=== PATIENT | female | born 1940 | race Caucasian/White ===

== ENCOUNTER → 2017-12-17 14:01 | Outpatient (CLI) | payer MEDICARE, OTHER, SELFPAY ==
--- NOTE | 2017-12-17 14:02 | BI_ITS ---
MAMMOGRAPHY - BILATERAL SCREENING REASON FOR EXAM: Female, 77 years old. Routine annual screening examination. PERTINENT HISTORY: Grandmother with breast cancer. Remote right excisional breast biopsies. TECHNIQUE: Digital bilateral breast robert (3D mammographic acquisition) in the CC and MLO projections. 2-D mediolateral oblique (MLO) and craniocaudad (CC) views of both breasts were obtained. CAD: Full Field Digital Mammography with Computer Added Detection was performed. COMPARISON: Comparison is made with prior study dated December 05, 2016 and October 18, 2015. FINDINGS: Breast Composition: The breasts are almost entirely fatty. There are no dominant masses or suspicious calcifications. Mild degree of architectural distortion in the deep upper lateral portion of the right breast in keeping with the history of prior biopsy. No other significant abnormalities are identified. There has been no significant change since the prior study. BI/SCREENING MAMM (CAD), BILAT IMPRESSION: Stable bilateral screening mammogram. Yearly follow-up mammogram recommended. (A) ASSESSMENT CATEGORY: BIRADS Category 2: Benign. A letter regarding these results will be sent to the patient by the facility within 30 days. Approximately 10% of breast cancers are not detected by mammography. A normal mammogram should not delay biopsy of a clinically suspicious abnormality. [id number] Electronically Signed: Quan Nichols MD at 15:11 EDT Tel [phone], Service support ,
== END ==
PROVIDERS: Family Provider Family Medicine; PCP Family Medicine; Visit Provider Obstetrics & Gynecology
DX: Z12.31 Encounter for screening mammogram for malignant neoplasm of breast (principal)
CPT/HCPCS: 77063; 77067

== ENCOUNTER 2018-03-30 13:00 | Outpatient (RCR) | payer MEDICARE, SELFPAY ==
--- NOTE | 2018-02-23 12:06 | HP.PTEVAL_ITS ---
Patient's Visit Information AMRIK CONROY is a 77 year old F referred to Physical Therapy by THEODORE Malloy with a diagnosis of Unstable balance. Date of Evaluation: 02/23/18 Physical Therapist: Casey Ibarra DPT, OC - Visit Plan Frequency: 2x /Week Duration: 4-6 Weeks Plan: 2x/week for 4-6 weeks for... 1. VOR ex progression seated to standing as safety allows. 2. ankle motor control ex. 3. weight shift and balance ex and on foam and progress to HEP. - Subjective Subjective: Lost earlier in the year. Has supportive kids but rough year. My brain doesn't work properly. Had voices in her head but prayed adn they are gone. Does stumble sometimes as hse catches feet on floor but has not gone down to the floor. Feels like balance is poor daily. Has not hurt herself recently . Has a cane but does not use as she often forgets. Has walker with wheels but does not use. Sleep is OK. No pain. No numbness in feet. Sometimes gets unsteady up arising from chair. Basic ADLS are done at home where she lives by herself. Has a ranch with three steps to get in with railing. Has ramp. Exercises in pool a couple times per week. Does an ex plan someone gave her 10 years ago in pool. Watches TV alot. Drives and grocery shop by herself and needs to use cart. - Objective Walks without cane I, slow and poor weight shift. Trasnfers I using UE. Tends to lean BW with sitting. VOR walking is very challenging and head tends to stop moving, Sitting body tends to move with head. LE ROM WFL but gastroc and HS tight and L DF to 0 degrees only. Strength is 4/5 in ankles and knees and 4 - in hips. Motor control at ankles is poor inv/ev. reflexes 1/3 patella and achilles. Sensation LE WNL to gross lgiht touch. Coordination to reciprocal tapping is at dificit to moderately to toe and heel tapping. - Balance Scores Functional Gait Assessment Score: 21 % Disability: 30.0000 CATSIB Score (Max score 120 seconds): 73 - Goals Goal 1:: FGA 25/30 to diminish fall risk Goal Time Frame: 4-6 Weeks Goal 2:: Pt feel 50% more steady and be I in approp HEP for balance maintenance. Goal Time Frame: 4-6 Weeks - Rehabilitation Potential Physical Therapy Diagnosis: Unstable balance VOR and ankle motor control deficits. Rehabilitation Potential: Fair - Anticipated Interventions Patient/Client Instruction: Educate patient on: Condition, Plan of Care For the Purpose of:: To improve gait and locomotor functions Therapeutic Exercise to Include: Strength training, Balance training, Coordination For the Purpose of:: To improve ability of physical actions for home/community/ work/leisure, To improve gait and locomotor functions, To improve safety Thank you for the opportunity to evaluate your patient. For Medicare and Medicare HMO plans, please review the plan of care and approve it. It will need to be FAXED BACK to us at [phone] for Medicare purposes. Please let me know if there are questions or concerns regarding this plan of care. Physician Signature: Date:
--- NOTE | 2018-03-30 14:16 | HP.PTDCSUM ---
HP - PT D/C Summary It has been my pleasure to treat AMRIK CONROY under orders from Zaheer Geller, GAVINOC, for the diagnosis of Unstable balance for a total of 9 visit(s). Discharge Date: 03/30/18 Please see the following information for a summary of their discharge status. - Subjective Subjective: Head always seems to be swimming for the last couple days for unknown reason. Left cane at [place] today. 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 Don't feel any steadier or stronger with therapy. Not ex as much as I should at home. Feels like she needs to go to doctor and find out what is wrong with me. Added Metformin dose at last visit to doctor. - Overall Improvement % Improvement: 0 - Objective Objective/Function: FGA is better by a couple points but patient not feeling any better overall. Balance is not bad for her age although I continue to recommend use of cane. Her complaints are more how she is feeling. - teresa Segura today. - Goals Goal 1:: FGA to diminish fall risk Goal Progress: Progressing Goal 2:: Pt feel 50% more steady and be I in approp HEP for balance maintenance. Goal Progress: Not Progressing - Plan Plan: D/C, pt back doctor for appropriate steps. - D/C Information Discharge Comments: Pt scoring better on balance test but still not feeling right much of time seemingly unrelated to activity. She wants to check with doctor regarding other options and will be contacting his office at this point. If there are questions or concerns regarding this patient's physical therapy, please feel free to call me at [phone]. Thank you for the referral of this patient. Sincerely, Casey Ibarra, DPT, OC
== END 2018-03-30 19:00 | disposition home or self-care (01) ==
LOC: PT 13:00
PROVIDERS: Family Provider Family Medicine; PCP Family Medicine; Visit Provider Nurse Practitioner Family
DX: R42 Dizziness and giddiness (principal); R26.89 Other abnormalities of gait and mobility
CPT/HCPCS: 97110; 97116; 97162; 97530

== ENCOUNTER → 2018-12-29 08:11 | Outpatient (CLI) | payer MEDICARE, SELFPAY ==
--- NOTE | 2018-12-29 08:15 | BI_ITS ---
MAMMOGRAPHY - BILATERAL SCREENING 3-D TOMOSYNTHESIS REASON FOR EXAM: Female, 78 years old. Bilateral Screening 3-D tomosynthesis PERTINENT HISTORY: No significant family history. TECHNIQUE: 2-D mammograms and 3-D Tomosynthesis of the breast (s) were performed. CAD was performed. COMPARISON: December 17, 2017. FINDINGS: The breast composition is almost entirely fat. I now see an approximately 9 mm maximum dimension density with ill-defined margins seen only convincingly on the right MLO view located approximately 7.1 cm from the nipple recommend further evaluation, initially with sonography. There are no suspicious clustered pleomorphic microcalcifications. Base. BI/SCREENING MAMM (CAD), BILAT IMPRESSION: Follow-up as above recommended. ASSESSMENT CATEGORY: BIRADS Category 0: Incomplete. Need additional imaging evaluation as above. A letter regarding these results will be sent to the patient by the facility within 30 days. FOLLOW UP RECOMMENDATION: Yearly follow up mammogram recommended. (A) Approximately 10% of breast cancers are not detected by mammography. A normal mammogram should not delay biopsy of a clinically suspicious abnormality. Recommendation: Recommend right breast sonography of the upper half of the right breast. Electronically Signed: Rajinder Hinds MD at 14:11 EDT , Service support ,
== END ==
PROVIDERS: Family Provider Family Medicine; PCP Family Medicine; Referring Provider Obstetrics & Gynecology; Visit Provider Obstetrics & Gynecology
DX: Z12.31 Encounter for screening mammogram for malignant neoplasm of breast (principal)
CPT/HCPCS: 77063; 77067

== ENCOUNTER → 2019-01-03 10:47 | Outpatient (CLI) | payer MEDICARE, OTHER, SELFPAY ==
--- NOTE | 2019-01-03 10:53 | US_ITS ---
STUDY: ULTRASOUND BREAST - RIGHT REASON FOR EXAM: Female, 78 years old. Abnormal screening mammogram. TECHNIQUE: Axial and longitudinal images of the RIGHT breast were performed with a high resolution ultrasound transducer. COMPARISON: Comparison is made with prior mammogram dated December 29, 2018. FINDINGS: RIGHT Breast: The mammographic abnormality corresponds to a 8mm by 8mm by 5 mm irregular hypoechoic nodular density with posterior shadowing. This is at the 9:00 position in the breast at 8 summary from nipple. A biopsy is recommended. US/Breast Limited Unilateral IMPRESSION: Suspicious nodule as described. Biopsy is recommended. ASSESSMENT CATEGORY: BIRADS Category 4: Suspicious - Biopsy Should Be Considered. A letter regarding these results will be sent to the patient by the facility within 30 days. Electronically Signed: Quan Nichols, at 13:21 EDT , Service support ,
== END ==
PROVIDERS: Family Provider Family Medicine; PCP Family Medicine; Referring Provider Obstetrics & Gynecology; Visit Provider Obstetrics & Gynecology
DX: R92.8 Other abnormal and inconclusive findings on diagnostic imaging of breast (principal)
CPT/HCPCS: 76642

== ENCOUNTER → 2019-01-12 13:37 | Outpatient (CLI) | payer MEDICARE, OTHER, SELFPAY ==
[2019-01-12 09:16] VITALS: BMI 33.4
--- NOTE | 2019-01-12 09:40 | BRBX_PTH ---
PATIENT: AMRIK CONROY LOC: [facility] U#:[id number] AGE/SX: 85/F ROOM: RE01/12/[address]: Dr. Austen Gooden MD : [id number] BED: DIS: SPEC #: [id number] RECD: 01/12/19 10:47 STATUS: DINH REQ #: [id number] BERNA: 01/12/19 09:[address]: Austen Gooden DEPT: SURGICAL PATHOLOGY RECD BY: Giancarlo Wilkerson ENTERED: 01/12/19 11:18 SP TYPE: BREAST BX OTHR DR: Dr. Jericho Mcnair MD Tissues: Right breast, NOS Procedures: Surgery Specimen Level IV Comments: @ Originally on account #[id number] Req #[id number] HEADER OPERATION: Right breast biopsy PRE-OP DIAGNOSIS: Abnormal breast ultrasound TISSUE SUBMITTED: Right breast tissue MICROSCOPIC DIAGNOSIS Right breast, core biopsy: Fragments of fatty benign breast tissue with dense fibrosis. Negative for atypia or malignancy. BRYAN:kelsey 01/13/19 COMMENT Correlation with clinical, radiologic findings and appropriate follow up are necessary. MICROSCOPIC DESCRIPTION Slides are reviewed. GROSS DESCRIPTION Received in fixative is one container labeled with the patient's name and designated right breast. The specimen consists of multiple elongated fragments of chance-yellow fibroadipose tissue that in aggregate measure 2.5 x 2 x 0.1 cm. The entire specimen is submitted in one cassette. / BRYAN:kelsey 01/12/19 TC:5 CPT: 66475
== END ==
PROVIDERS: Family Provider Family Medicine; PCP Family Medicine; Referring Provider Surgery; Visit Provider Surgery
DX: R92.8 Other abnormal and inconclusive findings on diagnostic imaging of breast (principal)
CPT/HCPCS: 88305

== ENCOUNTER → 2019-01-18 13:17 | Outpatient (CLI) | payer MEDICARE, OTHER, SELFPAY ==
[2019-01-12 09:16] VITALS: BMI 33.4
--- NOTE | 2019-01-18 13:21 | BI_ITS ---
MAMMOGRAPHY - UNILATERAL DIAGNOSTIC: RIGHT BREAST REASON FOR EXAM: Female, 78 years old. Imaging of a clip placement following ultrasound-guided breast biopsy.. PERTINENT HISTORY: Ultrasound guided right breast biopsy on January 12, 2019. TECHNIQUE: Mediolateral oblique and craniocaudad views of the right breast were obtained. CAD: Full Field Digital Mammography with Computer Added Detection was performed. COMPARISON: Comparison is made with prior mammogram dated December 29, 2018. FINDINGS: Breast Composition: The breasts are almost entirely fatty. A tissue clip marker is seen within a 1 cm nodular density in the upper lateral portion of the right breast. No other significant abnormalities are identified. BI/DIAG MAMM W/CAD, UNILAT IMPRESSION: A tissue clip marker is seen within the nodular density in the upper lateral portion of the right breast. ASSESSMENT CATEGORY: BIRADS Category 2: Benign. A letter regarding these results will be sent to the patient by the facility within 30 days. Approximately 10% of breast cancers are not detected by mammography. A normal mammogram should not delay biopsy of a clinically suspicious abnormality. Electronically Signed: Quan Nichols, at 15:11 EDT , Service support ,
== END ==
PROVIDERS: Family Provider Family Medicine; PCP Family Medicine; Referring Provider Surgery; Visit Provider Surgery
DX: R92.8 Other abnormal and inconclusive findings on diagnostic imaging of breast (principal)
CPT/HCPCS: 77065

== ENCOUNTER → 2019-01-26 10:29 | Outpatient (CLI) | payer MEDICARE, SELFPAY ==
[2019-01-12 09:16] VITALS: BMI 33.4
--- NOTE | 2019-01-26 10:34 | BD_ITS ---
STUDY: DUAL ENERGY X-RAY ABSORPTIOMETRY / DXA REASON FOR EXAM: Female, 78 years old. The patient is postmenopausal. Loss of height. TECHNIQUE: Bone Mineral Density (BMD) measurements of lumbar spine and left hip were obtained. The patient is status post right hip replacement. COMPARISON: Comparison is made with prior study dated October 17, 2014. FINDINGS: Lumbar Spine (L1-L4): g/cm2 (1.237) / T-score (0.6) / Z-score (2.4) Findings are suggestive of normal bone density with a low fracture risk. Increased kyphosis. Left Femur Total: g/cm2 (0.998) / T-score (-0.1) / Z-score (1.8) Left Femoral Neck: g/cm2 (0.753) / T-score (-2.1) / Z-score (0.0) The T-Scores on the most recent prior examination were: Lumbar Spine (L1-L4): There has been improvement of bone density since the previous examination. Left Femur Total: which represents a worsening of 1.5%. BD/Dexa Bone Density Study IMPRESSION: The patient is considered osteopenic as outlined below according to World [place] Organization (WHO) criteria with a moderate fracture risk. There has been worsening of bone density since the previous examination. Reference Information: The T-score is the number of standard deviations above or below the standard which is normal for young adults at their peak bone mineral density. The World Health Organization (WHO) interprets the T-scores as follows: Above -1 Normal bone density Between -1 and -2.5 Osteopenia Equal to / or below -2.5 Osteoporosis As a practical clinical guideline, osteopenia may be graded as follows: Mild -1 through -1.5 Moderate -1.6 through -2.0 Severe -2.1 through -2.4 The Z-score is the number of standard deviations above or below age-matched controls. A Z-score of less than -1.5 would be considered abnormal. References: 1. NIH Osteoporosis and Related Bone Diseases http://www.osteo.org 2. International Society for Clinical Densitometry http://www.iscd.org 3. National Osteoporosis Foundation http://www.nof.org Electronically Signed: Quan Nichols, at 15:15 EDT , Service support ,
== END ==
PROVIDERS: Family Provider Family Medicine; PCP Family Medicine; Referring Provider Obstetrics & Gynecology; Visit Provider Obstetrics & Gynecology
DX: Z78.0 Asymptomatic menopausal state (principal); Z13.820 Encounter for screening for osteoporosis
CPT/HCPCS: 77080

== ENCOUNTER → 2019-07-14 09:24 | Outpatient (CLI) | payer MEDICARE, OTHER, SELFPAY ==
[2019-01-12 09:16] VITALS: BMI 33.4
--- NOTE | 2019-07-14 09:27 | BI_ITS ---
MAMMOGRAPHY - UNILATERAL DIAGNOSTIC: RIGHT BREAST REASON FOR EXAM: Female, 79 years old. Six-month follow-up examination for right ultrasound-guided breast biopsy. PERTINENT HISTORY: Grandmother with breast cancer. Remote right excisional breast biopsy. TECHNIQUE: Digital unilateral breast robert (3D mammographic acquisition) in the CC and MLO projections. 2-D mediolateral oblique (MLO) and craniocaudad (CC) views of both breasts were obtained. CAD: Full Field Digital Mammography with Computer Added Detection was performed. COMPARISON: Comparison is made with prior study dated December 29, 2018 and January 18, 2019. FINDINGS: Breast Composition: The breasts are almost entirely fatty. There are no dominant masses or suspicious calcifications. Once again, a tissue clip marker is seen within a small nodular density in the deep upper lateral aspect of the right breast. This is unchanged. No other significant abnormalities are identified. There has been no significant change since the prior study. BI/DIAG MAMM W/CAD, UNILAT IMPRESSION: Stable unilateral diagnostic mammogram. One year follow-up mammogram recommended. (A) ASSESSMENT CATEGORY: BIRADS Category 2: Benign. A letter regarding these results will be sent to the patient by the facility within 30 days. Approximately 10% of breast cancers are not detected by mammography. A normal mammogram should not delay biopsy of a clinically suspicious abnormality. Electronically Signed: Quan Nichols, at 10:23 EST , Service support ,
== END ==
PROVIDERS: Family Provider Family Medicine; PCP Family Medicine; Referring Provider Surgery; Visit Provider Surgery
DX: R92.8 Other abnormal and inconclusive findings on diagnostic imaging of breast (principal)
CPT/HCPCS: 77061; 77065; G0279

== ENCOUNTER 2019-07-18 09:30 | Outpatient (RCR) | payer MEDICARE, OTHER, SELFPAY ==
[2019-01-12 09:16] VITALS: BMI 33.4
--- NOTE | 2019-06-27 10:09 | HP.PTEVAL_ITS ---
Patient's Visit Information AMRIK CONROY is a 79 year old F referred to Physical Therapy by THEODORE Malloy with a diagnosis of CERVICAL SPONDYLOSIS, NEURAL FORAMINAL STENOSIS AND LANI HAND NUMBNESS.. Date of Evaluation: 06/27/19 Physical Therapist: Charo Ge, PT, Cert MDT - Visit Plan Frequency: 2-3x /Week Duration: 4-6 Weeks Plan: CERVICAL US, POSTURE CORRECTION/STRENGTHENING, INSTRUCTION IN APPROPRIATE BODY MECHANICS AND ACTIVITY MODIFICATIONS. LANI UE ROM, STRETCHING AND STRENGTHENING. HEP INSTRUCTION. - Subjective Findings: Work/Leisure: RETIRED. Disability: NO. Present symptoms: PATIENT REPORTS SHE TOLD THE DOCTOR HER HANDS AND FINGERS HAVE BEEN BOTHERING HER (DIFFICULTY PICKING UP THINGS AND HANDS/FINGERS ARE NUMB) SO THEY X-RAY'D HER NECK AND FOUND A LOT OF ARTHRITIS. SHE REPORTS HER NECK REALLY DOES'T HURT MUCH AND WHEN SHE TURNS HER HEAD IT IS MILDLY UNCOMFORTABLE IN HER NECK. Present since: LESS THAN 6 MONTHS. Pain Scale: Worst - 4/10 Least - 0/10. Currently: 0/10 PAIN - JUST TINGLING IN FINGERS. Commenced as a result of: NO APPARENT REASON. Symptoms at onset: HANDS. Worse: NOTHING THAT PATIENT KNOWS OF. Better: UNKNOWN TO PATIENT. Disturbed sleep: NO. Previous history/Previous treatment: UNREMARKABLE. Dizziness: NO. Tinnitis: NO. Nausea: NO. Shortness of Breath: NO. Difficulty Swollowing: NO. Gait: NO CHANGES. UNSTEADY. USES CANE. DOESN'T GO OUT OF HOUSE ALONE BECAUSE HER CHILDREN DO NOT WANT HER TO. LIVES ALONE. Accidents: NO. Unexplained weight loss: NO. Imagin06/17/19 - ADVANCED CERVICAL SPONDYLOSIS WITH SEVERE LEFT C56 NEURAL FORAMINAL STENOSIS. PMH/Recent major surgery: ESSENTIAL HYPERTENSION, BENIGN, HYPERLIPIDEMIA, NIDDM, MEMORY DIFFICULTIES - PHYSICIAN AWARE. RIGHT THR. OTHER: PATIENT COMES TO [facility] TO DO INDEP POOL PROGRAM AND SOMETIMES T TH TO USE NUSTEP - Objective Sitting Posture/Standing Posture: POOR. FORWARD HEAD AND ROUNDED SHOULDERS BUT NO TORTICOLLIS. INCREASED KYPHOSIS. Active Correction of posture: NE. Other Observations: INDEP GAIT INTO PT WITH STRAIGHT CANE. GAIT IS SLOW AND UNSTEADY AT TIMES BUT REGAINS BALANCE INDEP'LY. PATIENT IS CAUTIOUS. 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 LANI UE STRENGTH GROSSLY 4/5 WITH MMT'ING. Sensory deficit: LANI UE LIGHT TOUCH SENSATION APPEARS TO BE INTACT AND SYMMETRICAL. ROM deficit: LANI UE ROM WFL. Reflexes: 2/3 LANI UE'S. Dural Signs: POSITIVE LANI UE'S. Cervical Mvmt Loss: Flex: NIL. Pro: NIL. Ext: JUSTA. Ret: JUSTA. RSB: JUSTA - PRODUCES LEFT NECK PAIN -MILD. LSB: JUSTA. R Rot: MOD. L Rot: MOD - PRODUCES LEFT NECK PAIN - MILD. Postural strength: POOR. Palpation: VERY TIGHT LANI POSTERIOR CERVICAL MUSCULATURE AND UPPER TRAPS. NO ACUTE CERVICAL OR THORACIC TENDERNESS WITH LIGHT PALPATION. - Goals Goal 1:: DECREASE C/O NECK AND LANI UE SX'S. Goal Time Frame: 4-6 Weeks Goal 2:: IMPROVE PERSONAL CARE, DRIVING AND HOMEMAKING FUNCTION. Goal Time Frame: 4-6 Weeks Goal 3:: INSTRUCT IN PROPHYLAXIS Goal Time Frame: 4-6 Weeks - Rehabilitation Potential Rehabilitation Potential: Fair - Anticipated Interventions Patient/Client Instruction: Educate patient on: Condition, Plan of Care, Risk Factors, Benefits of Fitness Program For the Purpose of:: To improve self management Therapeutic Exercise to Include: Strength training, Body mechanics, Postural training, Active ROM, Scapular Strength/Stabilization For the Purpose of:: To decrease pain, To improve muscle performance and motor function, To increase tolerance to activity/condition/position, To improve ability of physical actions for home/community/work/leisure Thermo therapy (hot pack): Yes Ultrasound (thermal/non thermal): Yes For the Purpose of:: To decrease pain, To increase ROM, To improve nutrient delivery to tissue Thank you for the opportunity to evaluate your patient. For Medicare and Medicare HMO plans, please review the plan of care and approve it. It will need to be FAXED BACK to us at [phone] for Medicare purposes. For Medicare only, by signing this I certify the plan of care. Please let me know if there are questions or concerns regarding this plan of care. Physician Signature: Date:
--- NOTE | 2019-07-18 11:13 | HP.PTDCSUM ---
HP - PT D/C Summary It has been my pleasure to treat AMRIK CONROY under orders from THEODORE Malloy, for the diagnosis of CERVICAL SPONDYLOSIS, NEURAL FORAMINAL STENOSIS AND LANI HAND NUMBNESS. for a total of 10 visit(s). Discharge Date: 07/18/19 Please see the following information for a summary of their discharge status. - Subjective Subjective: PATIENT REPORTS HER LEFT HAND SEEMS TO BE FINE NOW BUT HER RIGHT HAND IS STILL STIFF. STATES IT MAKES IT DIFFICULTY TO WRITE. SHE REPORTS HER RIGHT HAND DOESN'T REALLY HURT BUT MAYBE FEELS A LITTLE NUMB. PATIENT REPORTS SHE HAS NOT BEEN HAVING HEADACHES. PATIENT REPORTS HER RIGHT HAND FELT BETTER ABOUT A WEEK OR TWO AGO THAN IT DOES NOW SO SHE ISN'T SURE WHY. PATIENT REPORTS SHE DID HER WATER EX THIS MORNING AND WENT OUT TO BREAKFAST TOO. PATIENT REPORTS THE US TREATMENTS FEEL REALLY GOOD. - Pain NECK Pain Intensity (Out of 10): Unrated - Overall Improvement % Improvement: 75 - Objective Objective/Function: ALL GOALS HAVE ACTUALLY BEEN MET BUT SHE IS STILL HAS C/O RIGHT HAND STIFFNESS CAUSING DIFFICULTY WRITING. PATIENT MIGHT BENEFIT FROM AN OT CONSULT FOR THIS. 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 LANI UE STRENGTH GROSSLY 4/5 WITH MMT'ING. Sensory deficit: LANI UE LIGHT TOUCH SENSATION APPEARS TO BE INTACT AND SYMMETRICAL (INCLUDING LANI HANDS AND FINGERS). ROM deficit: LANI UE ROM WFL. Dural Signs: NEGATIVE LANI UE'S. Cervical Mvmt Loss: Flex: NIL. Pro: NIL. Ext: JUSTA. Ret: JUSTA. RSB: JUSTA - PRODUCES LEFT NECK PAIN -MILD. LSB: JUSTA. R Rot: MOD. L Rot: MOD Postural strength: POOR. Palpation: PATIENT STILL HAS TIGHT CERVICAL MUSCULATURE BUT HAS RESONDED WELL TO STM. - Goals Goal 1:: DECREASE C/O NECK AND LANI UE SX'S. Goal Progress: Goal Met Goal 2:: IMPROVE PERSONAL CARE, DRIVING AND HOMEMAKING FUNCTION. Goal Progress: Goal Met Goal 3:: INSTRUCT IN PROPHYLAXIS Goal Progress: Goal Met - Plan Plan: D/C. RECOMMENDED FOLLOW UP WITH FAMILY PHYSICIAN/WEDDING PHOTOGRAPHER FOR REASSESSMENT OF RIGHT HAND SYMPTOMS AND CONSIDERATION OF OCCUPATIONAL THERAPY CONSULT. - D/C Information If there are questions or concerns regarding this patient's physical therapy, please feel free to call me at [phone]. Thank you for the referral of this patient. Sincerely, Charo Ge PT, Cert MDT
== END 2019-07-18 19:00 | disposition home or self-care (01) ==
LOC: PT 09:30
PROVIDERS: Family Provider Family Medicine; PCP Family Medicine; Referring Provider Nurse Practitioner Family; Visit Provider Nurse Practitioner Family
DX: M47.812 Spondylosis without myelopathy or radiculopathy, cervical region (principal); M99.81 Other biomechanical lesions of cervical region; R20.0 Anesthesia of skin
CPT/HCPCS: 97035; 97110; 97140; 97162; 97530

== ENCOUNTER 2019-10-12 10:53 | Emergency (ER) | payer MEDICARE, OTHER, SELFPAY ==
[2019-07-26 13:58] VITALS: BMI 33.4
[2019-10-12 10:54] VITALS: BP 154/77; PULSE 96; RESP 18; TEMP 36.6; O2SAT 96; BMI 35.9
--- NOTE | 2019-10-12 11:51 | CT_ITS ---
STUDY: CT BRAIN WITHOUT CONTRAST REASON FOR EXAM: Female, 79 years old. FREQUENT FALLS RADIATION DOSAGE (If Supplied By Facility): CTDIvol = ( 44.99 ) mGy, DLP = ( 762.36 ) mGycm TECHNIQUE: Transaxial CT imaging of the brain was performed without administration of intravenous contrast material. Individualized dose optimization techniques were used for this CT. COMPARISON: No relevant priors. FINDINGS: Normal soft tissue structures. Normal calvarium. There is disproportionate enlargement of the lateral and third ventricles, as compared to the extra-axial spaces. The findings suggest normal pressure hydrocephalus (NPH). There are areas of decreased attenuation within the white matter tracts of the supratentorial brain, consistent with microvascular disease changes. Normal basal ganglia and thalami. Normal brainstem. There is mild cerebellar atrophy. There is no intracranial hemorrhage. There are no findings of an acute ischemic infarction. Atherosclerotic calcification of the cavernous portions of the internal carotid arteries bilaterally. Mucosal thickening of the medial wall of the right maxillary sinus. 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 Electronically Signed: Quan Nichols, at 12:41 EST , Service support ,
--- NOTE | 2019-10-12 11:51 | EKG12_ITS ---
Test Reason : FALL Blood Pressure : / mmHG Vent. Rate : 089 BPM Atrial Rate : 089 BPM P-R Int : 162 ms QRS Dur : 078 ms QT Int : 376 ms P-R-T Axes : 040 078 024 degrees QTc Int : 457 ms Poor data quality, interpretation may be adversely affected Normal sinus rhythm Normal ECG Confirmed by MERLIN KAY, BO ([id number]), multimedia editor COURTNEY SALEEM ([id number]) on 10/17/2019 10:33:32 AM Referred By: TOMAS Confirmed By:BETZY BOYER MD
--- NOTE | 2019-10-12 11:58 | ED.DCSUM_ITS ---
- ER Visit Summary Date of Service: 10/12/19 Chief Complaint: Frequent falls today History of Present Illness: The patient is a 79 F history of diabetes and prior cardiac cath. Patient states that she is fallen 5 or 6 times a day at home. [place] off balance. Did hit her head. No headache. No neck pain. When she got up she said she felt fine. She denies any recent illness. She denies any nausea, vomiting, diarrhea or fever. No dysuria nor any abdominal pain. No fever or chills. No chest pain or shortness of breath. She has had falls over the last year but not multiple in a day. She is accompanied by several family members. Physical Examination: Older female no acute distress vital signs are stable afebrile. H EENT exam unremarkable except a 1 inch hematoma to top of her scalp. No laceration. Pupils are reactive light. No facial trauma. Neck nontender. Trachea midline. Lungs clear to auscultation bilaterally. Heart regular rhythm no murmur. Rate about 90. Chest were nontender. Abdomen soft nontender. Pelvic girdle intact. Nontender. Hips are nontender. Flexion extension intact. No shortening or rotation. Bilateral technical services manager strength 5 out of 5. Bilateral dorsi plantar flexion. Extremities are nontender no deformity. Back nontender. Neurologically she is awake and alert with no focal motor deficits. She noticed month and year. She knows the president. She has no facial droop. She has normal speech. She has no ataxia of the upper or lower extremities. NIH score is 0. Test Results: CBC normal white count 9. Hemoglobin 13. Chemistries unremarkable gap of 6 creatinine 0.9 blood sugar 154. UA negative EKG is normal sinus rhythm rate 89 no acute signs of UT or ischemia. CT of the brain no acute abnormality but dilated ventricles consistent with possible normal pressure hydrocephalus. She has no old CAT scans available for me to compare this to. This was read by the radiologist and reviewed by me. There is no acute stroke or bleed. No obvious mass. Repeat exam unchanged at 1420. A long discussion with the patient and family. She has doctor's appointment tomorrow. And they are going to follow-up to be worked up for potential normal pressure hydrocephalus. She is able to ambulate but kind has a shuffling gait. And orthostatic vital signs were negative. Emergency Department Course and Treatment: Haley labs and CAT scan of her head will be done. Her exam is pretty benign. I will the nurses also do orthostatic vital signs and ambulate the patient. I did speak to Dr. Jericho Mcnair about the patient's evaluation today and need for follow-up. Treatment Plan: Follow-up with your primary care physician you need an appointment with a neurosurgeon to be evaluated for normal pressure hydrocephalus. Disposition: dc Impression: Acute frequent falls today Acute closed head injury Skin findings consistent with and concerning for possible normal pressure hydrocephalus needs further evaluation This note was generated with [employer] dictation software. It may contain incorrect words, spelling, and punctuation that were not noted in review of the chart prior to signing ED Disposition - Plan for ED Patient: Referrals: Jericho Mcnair MD [STAFF PHYSICIAN] -
[2019-10-12 12:09] VITALS: BP 131/77; BP 141/74; BP 146/86; PULSE 100; PULSE 88; PULSE 97
[2019-10-12 12:13] LABS: Absolute Lymphocyte Count 1.49 X10^3/uL (0.83-4.51); Absolute Neutrophil Count 7.3 X10^3/uL (2.0-7.7); Basophil# 0.04 X10^3/uL; Basophil% 0.4 % (0-1); Eosinophil# 0.06 X10^3/uL; Eosinophils% 0.6 % (0-5); Hematocrit 40.1 % (37-47); Hemoglobin 13.3 g/dL (12.0-15.0); Lymphocyte # 1.49 X10^3/ul (4.0); Lymphocyte % 15.8 % (19-41); Mean Corp Hgb Conc 33.2 g/dL (32-36); Mean Corpuscular Hgb 28.2 pg (27.0-32.0); Mean Corpuscular Volume 85.1 fL (81-99); Mean Platelet Vol. 10.4 fl (6.2-12.0); Monocyte# 0.56 X10^3/uL; Monocyte% 5.9 % (0-10); NRBC Flagged by Analyzer 0 % (0-5); Neutrophil # 7.26 X10^3/uL (2.7-7.7); Platelet Count 202 K/mm3 (150-450); RBC Distribution Width CV 12.9 % (11.6-14.6); RBC Distribution Width SD 39.8 fl (35.1-43.9); Red Blood Count 4.71 M/mm3 (4.2-5.4); White Blood Count 9.4 K/mm3 (4.4-11.0)
[2019-10-12 12:31] LABS: Anion Gap 6 (5-15); BUN 24 mg/dL (7-18); BUN/Creat Ratio 26.5 RATIO (10-20); Calcium,Total 10.3 mg/dL (8.5-10.1); Chloride 104 mmol/L (98-107); Creatinine, Serum 0.91 mg/dL (0.55-1.20); EST Glomerular Filtration Rate 64 mL/min (>60); Est Glom Filt Rate - Afr Amer 77 mL/min (>60); Estimated Creatinine Clearance 37.83 ml/min; Glucose 154 mg/dL (70-110); Potassium 4.2 mmol/L (3.5-5.1); Sodium Level 138 mmol/L (136-145)
[2019-10-12 12:58] LABS: Bacteria 0 SEEN /hpf (None Seen); Mucous, Urine 0 SEEN /hpf (<or=2+); Red Blood Cells-Urine 0 SEEN /hpf (0-5); White Blood Cells 0 SEEN /hpf (0-5)
[2019-10-12 13:01] LABS: Color, Urine Yellow (Yellow); Glucose, Dipstick 100 mg/dl (Normal); Ketone-Dipstick 15 mg/dl (Negative); Leukocyte Esterase-Dipstick Negative /ul (Negative); Nitrite-Dipstick Negative (Negative); Occult Blood-Urine Negative /ul (Negative); Protein-Dipstick Negative (Negative); Urine Bilirubin Dipstick Negative (Negative); Urine Clarity Clear (Clear); Urine Urobilinogen Normal (Normal); Urine pH 6.5 (5.0 - 8.0)
[2019-10-12 13:08] LABS: Squamous Epithelial Cells - UA 0-5 SEEN /hpf (5-10)
[2019-10-12 14:26] VITALS: BP 133/80; PULSE 91; RESP 18; O2SAT 96
--- NOTE | 2019-10-12 14:26 | ED.DEP ---
ED Disposition - Plan for ED Patient: Disposition: Home or Assisted Living Referrals: Jericho Mcnair MD [STAFF PHYSICIAN] - Keep Ana Lilia appointment Additional Instructions: I spoke to your primary care physician today. He is aware of your CAT scan results. The concern is for possible normal pressure hydrocephalus. He will need further evaluation for this and to see a neurosurgeon to be evaluated for this. The very careful at home due to the risk of falls.
[2019-10-12 14:37] VITALS: RESP 18
== END 2019-10-12 14:47 | disposition home or self-care (01) ==
PROVIDERS: Emergency Provider Emergency Medicine; PCP Nurse Practitioner Family
DX: S09.90XA Unspecified injury of head, initial encounter (principal); W19.XXXA Unspecified fall, initial encounter; Y93.9 Activity, unspecified; Y92.009 Unspecified place in unspecified non-institutional (private) residence as the place of occurrence of the external cause; Y99.9 Unspecified external cause status; R29.6 Repeated falls; E11.9 Type 2 diabetes mellitus without complications; E78.00 Pure hypercholesterolemia, unspecified
CPT/HCPCS: 70450; 80048; 81001; 85025; 93005; 99284; A4216

== ENCOUNTER → 2020-07-18 12:55 | Outpatient (CLI) | payer MEDICARE, OTHER, SELFPAY ==
--- NOTE | 2020-07-18 12:57 | BI_ITS ---
MAMMOGRAPHY - BILATERAL SCREENING REASON FOR EXAM: Female, 80 years old. Routine annual screening examination. PERTINENT HISTORY: Grandmother with breast cancer. Prior right ultrasound-guided breast biopsy and remote right excisional breast biopsy. TECHNIQUE: Digital bilateral breast quan (3D mammographic acquisition) in the CC and MLO projections. 2-D mediolateral oblique (MLO) and craniocaudad (CC) views of both breasts were obtained. CAD: Full Field Digital Mammography with Computer Added Detection was performed. COMPARISON: Comparison is made with prior study dated 12/29/2018 and 07/14/2019. FINDINGS: Breast Composition: The breasts are almost entirely fatty. There are no dominant masses or suspicious calcifications. A tissue clip marker is once again seen within a 6.8 mm nodule in the deep lateral aspect of the right breast. No other significant abnormalities are identified. There has been no significant change since the prior study. BI/SCREEN MAMM (CAD) W/QUAN BILAT IMPRESSION: Stable bilateral screening mammogram. Yearly follow-up mammogram recommended. (A) ASSESSMENT CATEGORY: BIRADS Category 2: Benign. A letter regarding these results will be sent to the patient by the facility within 30 days. Approximately 10% of breast cancers are not detected by mammography. A normal mammogram should not delay biopsy of a clinically suspicious abnormality. [id number] Electronically Signed: Quan Nichols, at 14:47 EST , Service support ,
== END ==
PROVIDERS: PCP Nurse Practitioner Family; Referring Provider Surgery; Visit Provider Surgery
DX: Z12.31 Encounter for screening mammogram for malignant neoplasm of breast (principal); Z80.3 Family history of malignant neoplasm of breast
CPT/HCPCS: 77063; 77067

== ENCOUNTER → 2021-08-28 12:58 | Outpatient (CLI) | payer MEDICARE, OTHER, SELFPAY ==
--- NOTE | 2021-08-28 13:01 | BI_ITS ---
MAMMOGRAPHY - BILATERAL SCREENING REASON FOR EXAM: Female, 81 years old. Routine annual screening examination. PERTINENT HISTORY: Grandmother with breast cancer. Prior right excisional and ultrasound guided breast biopsies. TECHNIQUE: Digital bilateral breast quan (3D mammographic acquisition) in the CC and MLO projections. 2-D mediolateral oblique (MLO) and craniocaudad (CC) views of both breasts were obtained. CAD: Full Field Digital Mammography with Computer Added Detection was performed. COMPARISON: Comparison is made with prior study dated 07/18/2020 and 07/14/2019. FINDINGS: Breast Composition: The breasts are almost entirely fatty. There are no dominant masses or suspicious calcifications. A tissue clip marker is seen within the tiny nodule in the deep upper outer aspect of the left breast. This is unchanged. No other significant abnormalities are identified. There has been no significant change since the prior study. BI/SCRN MAMM (CAD)W/QUAN BILAT IMPRESSION: Stable bilateral screening mammogram. Yearly follow-up mammogram recommended. (A) ASSESSMENT CATEGORY: BIRADS Category 2: Benign. A letter regarding these results will be sent to the patient by the facility within 30 days. Approximately 10% of breast cancers are not detected by mammography. A normal mammogram should not delay biopsy of a clinically suspicious abnormality. [id number] Electronically Signed: Quan Nichols MD at 13:58 EST , Service support ,
== END ==
PROVIDERS: PCP Nurse Practitioner Family; Visit Provider Obstetrics & Gynecology
DX: Z12.31 Encounter for screening mammogram for malignant neoplasm of breast (principal)
CPT/HCPCS: 77063; 77067

== ENCOUNTER 2021-09-04 11:03 | Emergency (ER) | payer MEDICARE, OTHER, SELFPAY ==
[2021-09-04 11:04] VITALS: BP 140/74; PULSE 81; RESP 18; TEMP 36.6; O2SAT 97; BMI 33.7
--- NOTE | 2021-09-04 11:15 | EKG12_ITS ---
Test Reason : SOB Blood Pressure : / mmHG Vent. Rate : 079 BPM Atrial Rate : 079 BPM P-R Int : 176 ms QRS Dur : 076 ms QT Int : 390 ms P-R-T Axes : 038 092 045 degrees QTc Int : 447 ms Normal sinus rhythm Normal ECG Confirmed by ROBERTH KAY, AMARILYS ([id number]), production editor ROCKY GRAHAM ([id number]) on 09/18/2021 10:20:22 AM Referred By: PL Confirmed By:AMARILYS LEPE MD
--- NOTE | 2021-09-04 11:30 | RAD_ITS ---
INDICATION: cough sob EXAMINATION/TECHNIQUE: X-RAY - XR Chest 1 View COMPARISON: None. FINDINGS: LINES/DEVICES: Catheter visualized within the right neck soft tissues the chest and extending in the left upper quadrant of the abdomen. LUNGS: Biapical prominence suggestive of COPD changes. Peribronchial cuffing and mild perihilar prominence is visualized, mild prominence of the bronchovascular and interstitial lung markings visualized with linear subsegmental atelectatic streaks seen most prominent in the left lower lung field, mild haziness overlying the left costophrenic angle cannot rule out left lower lobe infiltrates or aspiration pneumonia. MEDIASTINUM AND CARDIOVASCULAR STRUCTURES: The cardiovascular silhouette is within normal limits. BONES AND SOFT TISSUES: Degenerative bone changes are seen. RAD/Chest 1 View (Portable) IMPRESSION: Peribronchial cuffing would recommend clinical correlation for acute bronchitis, mild haziness in the lower lung alejandra most prominent in the left lower lobe, cannot rule out left lower lobe infiltrates or aspiration. Electronically Signed: Chris Damon MD at 13:08 EST Tel , Service support ,
[2021-09-04 12:11] LABS: Absolute Lymphocyte Count 0.84 X10^3/uL (0.83-4.51); Absolute Neutrophil Count 5.3 X10^3/uL (2.0-7.7); Basophil# 0.02 X10^3/uL; Basophil% 0.3 % (0-1); Eosinophil# 0.05 X10^3/uL; Eosinophils% 0.7 % (0-5); Lymphocyte # 0.84 X10^3/ul (0.83-4.51); Lymphocyte % 11.7 % (19-41); Mean Corp Hgb Conc 32.5 g/dL (32-36); Mean Platelet Vol. 10.2 fl (6.2-12.0); Monocyte# 0.83 X10^3/uL; Monocyte% 11.6 % (0-10); NRBC Flagged by Analyzer 0 % (0-5); Neutrophil # 5.33 X10^3/uL (2.7-7.7); Neutrophil % 74.2 % (47-70); Platelet Count 158 K/mm3 (150-450); RBC Distribution Width CV 13.1 % (11.6-14.6); RBC Distribution Width SD 40.7 fl (35.1-43.9); Red Blood Count 4.65 M/mm3 (4.2-5.4); White Blood Count 7.2 K/mm3 (4.4-11.0)
[2021-09-04 12:17] LABS: Anion Gap 8 (5-15); BUN 17 mg/dL (7-18); BUN/Creat Ratio 17.1 RATIO (10-20); Calcium,Total 9.7 mg/dL (8.5-10.1); Chloride 98 mmol/L (98-107); EST Glomerular Filtration Rate 57 mL/min (>60); Est Glom Filt Rate - Afr Amer 69 mL/min (>60); Estimated Creatinine Clearance 31.69 ml/min; Glucose 200 mg/dL (74-106); Sodium Level 134 mmol/L (136-145)
[2021-09-04 12:55] VITALS: O2SAT 97
[2021-09-04 13:00] VITALS: O2SAT 97
--- NOTE | 2021-09-04 13:08 | EX.ED.DYSGE1 ---
HPI History of Present Illness Chief Complaint: General Illness Narrative Narrative: 81-year-old female presenting with cough, fever, chills, body aches. She states this started on Thursday. She was exposed to family members who had tested positive for COVID-19 over the weekend. Patient does admit to some nausea. She does not have abdominal pain, constipation, diarrhea. She denies urinary complaints. She does express that she has a mild headache. She has fatigue. She was vaccinated and boosted for COVID-19. Patient was seen in urgent care yesterday and tested for COVID-19 however this is a send out and she has not received the result. She was placed on Levaquin after she had a chest x-ray which showed possible pneumonia. She took 1 dose yesterday. [facility] Medical History Abnormal mammogram of right breast Depression Diabetes Hyperlipidemia NPH (normal pressure hydrocephalus) Home Medications aspirin 81 mg tablet,delayed release 81 mg PO DAILY 01/10/19 [History Last Taken Unknown] biotin 10 mg tablet 10 mg PO DAILY 01/10/19 [History Last Taken Unknown] cholecalciferol (vitamin D3) 25 mcg (1,000 unit) capsule 1,000 unit PO DAILY 01/10/19 [History Last Taken Unknown] coenzyme Q10 75 mg capsule 75 mg PO DAILY 01/10/19 [History Last Taken Unknown] docusate sodium 100 mg capsule 100 mg PO DAILY 01/10/19 [History Last Taken Unknown] glimepiride 4 mg tablet 4 mg PO QAM 01/10/19 [History Last Taken Unknown] glucosamine 750 yk-licdqvrggha-sxe no1 625 mg-C 30 mg-farideh 1 mg tablet 1 tab PO DAILY tab 01/10/19 [History Last Taken Unknown] meloxicam 15 mg tablet 7.5 mg PO DAILY 01/10/19 [History Last Taken Unknown] cozifgvoedpr-xtwkvrfc-vkqyrp tablet 1 tab PO DAILY 01/10/19 [History Last Taken Unknown] sertraline 100 mg tablet 100 mg PO DAILY 01/10/19 [History Last Taken Unknown] simvastatin 40 mg tablet 40 mg PO QHS 01/10/19 [History Last Taken Unknown] metformin 1,000 mg PO BID 10/12/19 [History Last Taken Unknown] metformin 500 mg PO DAILY 10/12/19 [History Last Taken Unknown] sitagliptin 100 mg PO DAILY 10/12/19 [History Last Taken Unknown] ondansetron 4 mg PO Q8H PRN PRN #20 tab 09/04/21 [Rx Last Taken Unknown] Allergy/AdvReac Type Severity Reaction Status Date / Time iodine Allergy Mild Hives Verified 10/12/19 10:56 Penicillins Allergy Mild Hives Verified 10/12/19 10:56 Family History Grandmother Breast cancer Surgical History S/P appendectomy S/P breast biopsy Social History Smoking Status: Never smoker alcohol intake: current alcohol intake frequency: holidays/special occasions only ROS ROS ED ROS Narrative Generalized weakness Constitutional Constitutional ED: Reports chills and fever(s) Eyes Eyes: Denies blurry vision or diplopia ENT ENT ED: Denies rhinorrhea Cardiovascular Cardiovascular: Denies chest pain or palpitations Respiratory/Chest Respiratory/Chest: Reports cough and dyspnea Genitourinary Genitourinary ED: Denies dysuria Musculoskeletal Musculoskeletal: Reports myalgias; Denies arthralgias or neck pain Integumentary Denies Abrasions or rash Neurologic Neurologic: Reports headache(s); Denies paresthesias or weakness EXAM Physical Exam Const Vital Signs: 09/04/21 11:04 09/04/21 12:55 09/04/21 13:00 Temperature 97.9 F Temperature Source Temporal Pulse Rate 81 Respiratory Rate 18 Respiratory Effort Normal Respiratory Pattern Normal Blood Pressure 140/74 H Blood Pressure Mean 96 Pulse Ox 97 97 97 Oxygen Delivery Method Room Air Room Air Room Air 09/04/21 14:03 Temperature Temperature Source Pulse Rate 81 Respiratory Rate 21 H Respiratory Effort Respiratory Pattern Blood Pressure 137/74 H Blood Pressure Mean Pulse Ox 97 Oxygen Delivery Method Positive well nourished General Appearance ED: NAD; Negative for pallor HEENT Reports moist mucous membranes Negative for trauma Eyes PERRL and EOMs intact bilaterally Neck no lymphadenopathy and supple Resp normal respiratory effort and clear to auscultation bilaterally Cardio regular rate and regular rhythm Neuro oriented x3, CN's II-XII intact bilaterally and no sensory deficits noted Sensorium / Orientation: alert Motor Exam: strength 5/5 throughout Psych mental status grossly normal Skin General Skin Exam: Negative for jaundice or pallor MDM MDM MDM Narrative Medical decision making narrative: Due to patient concern for weakness I did obtain blood work and her CBC shows no leukocytosis. Hemoglobin hematocrit are stable. Platelets are normal. Renal function and electrolytes are also normal. Glucose is slightly elevated at 200 however she has no anion gap. Chest x-ray does show mild bilateral infiltrates on my interpretation and the radiologist agree. There is also some peribronchial cuffing. Patient is not requiring any supplemental oxygen and her O2 sats are 97% on room air. Her pulse is 81. Blood pressure 137/74. Respiratory rate is from 18-21. She did test positive for Covid today and she did want to be referred for monoclonal antibodies. She will be discharged home into the care of her family. Impression: 1. COVID-19 pneumonitis Lab Data Attestation: I reviewed the patient's lab results. Labs: Laboratory Results - last 24 hr 09/04/21 09/04/21 11:45 11:45 WBC 7.2 RBC 4.65 Hgb 13.0 Hct 40.0 MCV 86.0 MCH 28.0 MCHC 32.5 RDW Std Deviation 40.7 RDW Coeff of Danika 13.1 Plt Count 158 MPV 10.2 Immature Gran % (Auto) 1.500 H Neut % (Auto) 74.2 H Lymph % (Auto) 11.7 L Murray % (Auto) 11.6 H Eos % (Auto) 0.7 Baso % (Auto) 0.3 Absolute Neuts (auto) 5.3 Absolute Lymphs (auto) 0.84 Nucleated RBC % 0 Sodium 134 L Potassium 4.0 Chloride 98 Carbon Dioxide 28.0 Anion Gap 8 BUN 17 Creatinine 1.00 Estim Creat Clear Calc 31.69 Est GFR (MDRD) Af Amer 69 Est GFR (MDRD) Non-Af 57 L BUN/Creatinine Ratio 17.1 Glucose 200 H Calcium 9.7 Radiography Diagnostic Testing: Clinical Impression(s) from Imaging Studies Chest X-Ray 09/04/21 11:30 IMPRESSION: Peribronchial cuffing would recommend clinical correlation for acute bronchitis, mild haziness in the lower lung alejandra most prominent in the left lower lobe, cannot rule out left lower lobe infiltrates or aspiration. Electronically Signed: Chris Damon MD at 13:08 EST Tel , Service support , Discharge Plan Triage Chief Complaint: General Illness ED Provider: Richar Cross Dx/Rx/DC Orders Instructions: Coronavirus Disease 2019 (COVID-19): Caring for Yourself or Others, ED - COVID Monoclonal AB Infusion ... Prescriptions: New ondansetron 4 mg tablet,disintegrating 4 mg PO Q8H PRN PRN (Reason: Nausea) Qty: 20 RF: 0 No Action aspirin 81 mg tablet,delayed release (DR/EC) 81 mg PO DAILY RF: 0 glimepiride 4 mg tablet 4 mg PO QAM RF: 0 cholecalciferol (vitamin D3) 1,000 unit capsule 1,000 unit capsule 1,000 unit PO DAILY RF: 0 simvastatin [Zocor] 40 mg tablet 40 mg PO QHS RF: 0 tndjtuqilrvd-eaihqupj-jdstpm tablet 1 tab PO DAILY RF: 0 biotin 10 mg tablet 10 mg PO DAILY RF: 0 Ultra CoQ10 75 mg capsule 75 mg PO DAILY RF: 0 vohnllra-wxlqg-khk7-C-farideh-bor [id number] mg tablet 1 tab PO DAILY RF: 0 meloxicam [Mobic] 15 mg tablet 7.5 mg PO DAILY RF: 0 docusate sodium [Colace] 100 mg capsule 100 mg PO DAILY RF: 0 sertraline [Zoloft] 100 mg tablet 100 mg PO DAILY RF: 0 metformin 500 MG tablet 1,000 mg PO BID RF: 0 metformin 500 MG tablet 500 mg PO DAILY RF: 0 sitagliptin 100 tablet 100 mg PO DAILY RF: 0 Primary Care Provider: Zaheer Geller NP Referrals: Zaheer Geller NP, ACCOUNTANT MANAGER-C [Primary Care Provider] - Disposition Disposition: Home, Self Care Discharge Date/Time: 09/04/21 14:04
[2021-09-04] MEDS: Ondansetron 4 MG/2 ML Vial IV (13:16)
[2021-09-04 14:03] VITALS: BP 137/74; PULSE 81; RESP 21; O2SAT 97
== END 2021-09-04 14:04 | disposition home or self-care (01) ==
PROVIDERS: Emergency Provider Student in an Organized Health Care Education/Training Program; PCP Nurse Practitioner Family
DX: U07.1 COVID-19 (principal); E78.5 Hyperlipidemia, unspecified; E11.9 Type 2 diabetes mellitus without complications; G91.2 (Idiopathic) normal pressure hydrocephalus; Z79.899 Other long term (current) drug therapy; Z79.82 Long term (current) use of aspirin; Z79.84 Long term (current) use of oral hypoglycemic drugs; J12.82 Pneumonia due to coronavirus disease 2019
CPT/HCPCS: 71045; 80048; 85025; 87426; 93005; 96374; 99283; A4216; J2405

== ENCOUNTER 2021-09-06 15:47 | Outpatient (CLI) | payer MEDICARE, OTHER, SELFPAY ==
[2021-09-06 15:58] VITALS: BP 136/67; PULSE 82; RESP 16; TEMP 36.8; O2SAT 96; BMI 29.2
[2021-09-06] MEDS: 0.9% Saline Lock 10 ML Syringe IV (16:07)
[2021-09-06 16:32] VITALS: BP 122/68; PULSE 80; RESP 16; TEMP 36.8; O2SAT 98
[2021-09-06 17:16] VITALS: BP 125/70; PULSE 78; RESP 16; TEMP 36.9; O2SAT 95
== END 2021-09-06 17:29 | disposition home or self-care (01) ==
LOC: MS3OUT 15:49 → MS3 15:50
PROVIDERS: PCP Nurse Practitioner Family; Visit Provider Student in an Organized Health Care Education/Training Program
DX: Z23 Encounter for immunization (principal); U07.1 COVID-19; E66.9 Obesity, unspecified
CPT/HCPCS: J7050; M0243; A4216; Q0244

== ENCOUNTER 2022-02-21 17:49 | Observation (INO) | payer MEDICARE, OTHER, SELFPAY ==
[2022-02-21 17:50] VITALS: BP 142/94; PULSE 82; RESP 16; TEMP 36.4; O2SAT 96; BMI 32.1
[2022-02-21 18:02] VITALS: BP 182/96; PULSE 80; RESP 16; RESP 17; TEMP 36.4; O2SAT 95
[2022-02-21 18:21] LABS: Bedside Glucose 119 mg/dL (74-106)
--- NOTE | 2022-02-21 18:29 | CT_ITS ---
STUDY: CT BRAIN WITHOUT CONTRAST REASON FOR EXAM: Female, 81 years old. Dizziness. History of hydrocephalus. RADIATION DOSAGE (If Supplied By Facility): CTDIvol = ( 44.99 ) mGy, DLP = ( 796.11 ) mGycm TECHNIQUE: Transaxial CT imaging of the brain was performed without administration of intravenous contrast material. Individualized dose optimization techniques were used for this CT. COMPARISON: 10/12/2019. FINDINGS: There is a right frontal VIDEOGAME TESTER shunt catheter extending into the third ventricle. A catheter is seen in the soft tissues of the right calvarium. [place] hole in the right frontal region. Otherwise normal calvarium. There is mild cerebral atrophy with widening of the extra-axial spaces. There is ventricular dilatation mildly prominent due to the degree of cerebral atrophy.. This appears unchanged. Normal white matter tracts of the cerebral hemispheres. Normal basal ganglia and thalami. Normal brainstem. Normal cerebellum. There is no intracranial hemorrhage. There are no findings of an acute ischemic infarction. Normal visualized paranasal sinuses. CT/Brain/Head without Contrast IMPRESSION: Interval right frontal VIDEOGAME TESTER shunt catheter. There is no other significant interval change when compared to the previous examination. Electronically Signed: Kurt Sousa DO at 18:56 EDT Reading Location ID and State: [id number] Tel [phone], Service support ,
--- NOTE | 2022-02-21 18:29 | EKG12_ITS ---
Test Reason : DYSRHYTHMIA Blood Pressure : / mmHG Vent. Rate : 074 BPM Atrial Rate : 074 BPM P-R Int : 184 ms QRS Dur : 062 ms QT Int : 384 ms P-R-T Axes : 042 095 061 degrees QTc Int : 426 ms Normal sinus rhythm Normal ECG Confirmed by ROBERTH KAY, AMARILYS ([id number]), sound editor ROCKY GRAHAM ([id number]) on 02/24/2022 12:42:39 PM Referred By: Shahrzad Johnson Confirmed By:AMARILYS LEPE MD
--- NOTE | 2022-02-21 18:30 | EX.ED.DYSGE1 ---
HPI History of Present Illness Chief Complaint: Dizziness Detail of Chief Complaint: Lightheaded. Informant: patient and family Onset/Context/Timing Onset: Days Context: Gradual Onset Timing: Intermittent Current Severity: Mild Maximum Severity: Mild Narrative Narrative: 81-year-old female history of normal pressure hydrocephalus with a shunt and diabetes. The last 2 days she has had some dizziness. Its intermittent. She feels lightheaded when she gets it. No headache. She did have a fall 5 to 10 days ago. She is unsure if she had any head trauma. She did not remember the fall the daughter brought it up. Patient does have some memory issues from the past. She is recently had some nausea and vomiting. She denies any headache. She denies any chest pain. No melena. No dysuria. She is on no blood thinners. Daughter is concerned because she has not recently been ill that to make sure that her normal pressure hydrocephalus has not worsened. Prior similar symptoms: No Recent Illness/Hospitalization: No [facility] Medical History Abnormal mammogram of right breast Depression Diabetes Hyperlipidemia NPH (normal pressure hydrocephalus) Home Medications aspirin 81 mg tablet,delayed release 81 mg PO DAILY 01/10/19 [History Last Taken Unknown] biotin 10 mg tablet 10 mg PO DAILY 01/10/19 [History Last Taken Unknown] cholecalciferol (vitamin D3) 25 mcg (1,000 unit) capsule 1,000 unit PO DAILY 01/10/19 [History Last Taken Unknown] docusate sodium 100 mg capsule (Colace) 100 mg PO DAILY 01/10/19 [History Last Taken Unknown] glimepiride 4 mg tablet 4 mg PO QAM 01/10/19 [History Last Taken Unknown] glucosamine 750 cl-mervritxpsp-hqe no1 625 mg-C 30 mg-farideh 1 mg tablet 1 tab PO DAILY 01/10/19 [History Last Taken Unknown] meloxicam 15 mg tablet (Mobic) 7.5 mg PO DAILY 01/10/19 [History Last Taken Unknown] antslbabiorh-kexmbtft-qzwqmw tablet 1 tab PO DAILY 01/10/19 [History Last Taken Unknown] sertraline 100 mg tablet (Zoloft) 100 mg PO DAILY 01/10/19 [History Last Taken Unknown] simvastatin 40 mg tablet (Zocor) 40 mg PO QHS 01/10/19 [History Last Taken Unknown] metformin 500 mg tablet 1,000 mg PO BID 10/12/19 [History Last Taken Unknown] sitagliptin 100 mg tablet 100 mg PO DAILY 10/12/19 [History Last Taken Unknown] Allergy/AdvReac Type Severity Reaction Status Date / Time iodine Allergy Mild Hives Verified 02/21/22 17:53 Penicillins Allergy Mild Hives Verified 02/21/22 17:53 Family History Grandmother Breast cancer Surgical History S/P appendectomy S/P breast biopsy Social History Smoking Status: Never smoker alcohol intake: current alcohol intake frequency: holidays/special occasions only ROS ROS ED ROS Narrative Dizziness. Lightheaded. Review of Systems ROS Unobtainable: Denies due to encephalopathy Constitutional Constitutional ED: Denies chills or fever(s) Eyes Eyes: Denies blurry vision ENT ENT ED: Denies ear pain Cardiovascular Cardiovascular: Denies chest pain Respiratory/Chest Respiratory/Chest: Denies cough or dyspnea Gastrointestinal Gastrointestinal: Denies abdominal pain, constipation, diarrhea, melena or nausea Genitourinary Genitourinary ED: Denies dysuria Musculoskeletal Musculoskeletal: Denies arthralgias Integumentary Denies abscess Neurologic Neurologic: Denies headache(s) Psychiatric Psychiatric: Denies anxiety Endocrine Endocrinology: Denies cold intolerance Allergic/Immunologic Allergic/Immunologic ED: Denies mouth swelling or tongue swelling EXAM Physical Exam Narrative Exam Narrative: Well-appearing 81-year-old female. Vital signs are stable afebrile. Pulse ox 96% on room air no hypoxia. H EENT exam normal. Atraumatic. Pupils round reactive light. No facial droop. Tongue midline. Normal speech. Neck nontender. Lungs clear to auscultation. Heart regular rhythm no murmur. Abdomen soft nontender. Moving all 4 extremities. 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 Dorsi plantarflexion intact. Back nontender. Neurologically she is awake and alert with no focal motor or sensory deficits. Negative Hallpike. Fingertip to nose within normal limits. No drift. NIH score is 0. Const Vital Signs: 02/21/22 17:50 02/21/22 18:02 02/21/22 18:02 Temperature 97.5 F L 97.5 F L Temperature Source Temporal Temporal Pulse Rate 82 80 80 Pulse Rate [Lying] Pulse Rate [Sitting (for 1 minute prior to obtaining)] Respiratory Rate 16 16 17 Respiratory Effort Respiratory Pattern Blood Pressure 142/94 H 182/96 H 182/96 H Blood Pressure [Lying] Blood Pressure [Sitting (for 1 minute prior to obtaining)] Blood Pressure Mean 110 124 124 Blood Pressure Mean [Lying] Blood Pressure Mean [Sitting (for 1 minute prior to obtaining)] Pulse Ox 96 95 95 Oxygen Delivery Method Room Air Room Air Room Air 02/21/22 18:03 02/21/22 19:23 Temperature Temperature Source Pulse Rate Pulse Rate [Lying] 73 Pulse Rate [Sitting (for 1 minute prior to obtaining)] 74 Respiratory Rate Respiratory Effort Normal Non-Labored Respiratory Pattern Normal Blood Pressure Blood Pressure [Lying] 160/81 H Blood Pressure [Sitting (for 1 minute prior to obtaining)] 139/98 H Blood Pressure Mean Blood Pressure Mean [Lying] 107 Blood Pressure Mean [Sitting (for 1 minute prior to obtaining)] 111 Pulse Ox Oxygen Delivery Method Positive well nourished, well developed and obese; Negative for cachectic or contractures General Appearance ED: well developed; Negative for cachectic, contractures, cyanotic, diaphoretic or pallor Nutritional Appearance: obese; Negative for cachectic HEENT Reports moist mucous membranes; Denies dry mucous membranes Negative for trauma or tenderness Mouth ED: No dry mucous membranes Mouth: No dry mucous membranes Eyes PERRL and EOMs intact bilaterally General Eye ED: Negative for pale conjunctiva or scleral icterus Neck no lymphadenopathy, supple and no JVD General: Negative for tenderness Chest Wall inspection of chest normal and palpation of chest normal Resp normal respiratory effort and clear to auscultation bilaterally Effort and Inspection: Negative for retractions or pain with movement Auscultation: Negative for rales, rhonchi, wheezes or diminished lung sounds Cardio regular rate, regular rhythm, S1 normal heart sound and S2 normal heart sound Rate: Negative for bradycardia Rhythm: Negative for abnormal rhythm GI normal to inspection, nondistended, normoactive bowel sounds, non-tender, non-distended and no masses; Negative for hepatosplenomegaly Inspection: Negative for abdominal distention Auscultation: normoactive bowel sounds Palpation: soft; Negative for tender, guarding, splenomegaly, mass or rebound tenderness present Back/Spine no CVA tenderness General Back: Negative for CVA tenderness Cervical Spine: Negative for cervical spine tenderness Thoracic Spine / Upper Back: Negative for thoracic spinal tenderness Lumbar Spine / Lower Back: Negative for lumbar spinal tenderness Extremity normal to inspection General Extremety ED: Negative for edema or tenderness General Extremity: Negative for edema Neuro oriented x3 and CN's II-XII intact bilaterally Sensorium / Orientation: alert; Negative for orientation impaired, lethargic or stuporous Sensory Exam: No sensory level loss detected Motor Exam: strength 5/5 throughout; Negative for general weakness or strength abnormal Psych mental status grossly normal Attitude: No agitated Mood & Affect: Negative for depressed, anxious or tearful Skin no rashes or lesions noted and no wounds General Skin Exam: elasticity normal; Negative for jaundice or pallor Rashes: No rashes noted Wounds: Negative for wounds noted MDM MDM MDM Narrative Medical decision making narrative: 81-year-old female with very ported dizziness. She has a normal exam. She has a history of normal pressure hydrocephalus and a CAT scan is being obtained along with screening labs. Attempted to ambulate the patient she was too dizzy to walk. Otherwise exam is unchanged at 8:39 PM. Treated with IV fluids. I spoke to [facility] they will accept her in transfer to evaluate her shunt but they have no bed available at this time. I also spoke to our hospitalist Dr. Johnson and she will admit the patient for further evaluation until the clinic can accept her in transfer if she does not improve with hydration for her dizziness. I discussed all this with the patient and family. Lab Data Attestation: I reviewed the patient's lab results. Lab results narrative: CBC normal white count 7. H&H 13 and 40. Platelets 217. Electrolytes unremarkable gap of 7. BUN 21 creatinine 1.1. Glucose 108. CAT scan of the brain shows no acute abnormality. CAT scan of the brain no acute changes. History of normal pressure hydrocephalus with dilated ventricles. Shunt in place. Read by the radiologist. Orthostatic vital signs do show a drop in blood pressure from lying to sitting. Labs: Laboratory Results - last 24 hr 02/21/22 02/21/22 02/21/22 18:14 18:20 18:20 WBC 7.6 RBC 4.70 Hgb 13.1 Hct 40.2 MCV 85.5 MCH 27.9 MCHC 32.6 RDW Std Deviation 41.9 RDW Coeff of Danika 13.3 Plt Count 217 MPV 10.0 Immature Gran % (Auto) 0.400 Neut % (Auto) 55.5 Lymph % (Auto) 32.4 [place] % (Auto) 8.9 Eos % (Auto) 2.1 Baso % (Auto) 0.7 Absolute Neuts (auto) 4.2 Absolute Lymphs (auto) 2.45 Nucleated RBC % 0 Sodium 139 Potassium 4.2 Chloride 102 Carbon Dioxide 30.0 Anion Gap 7 BUN 21 H Creatinine 1.15 H Estim Creat Clear Calc 28.95 Est GFR (MDRD) Af Amer 58 L Est GFR (MDRD) Non-Af 48 L BUN/Creatinine Ratio 18.3 Glucose 108 H Calcium 9.9 POC Glucose 119 H Radiography Diagnostic Testing: Clinical Impression(s) from Imaging Studies Brain CT 02/21/22 18:29 IMPRESSION: Interval right frontal WRAPPER HAND shunt catheter. There is no other significant interval change when compared to the previous examination. Electronically Signed: Kurt Sousa DO at 18:56 EDT Reading Location ID and State: [address] [place] [address] Tel [phone], Service support , Rhythm Strip Rhythm Strip: Sinus Rhythm Rate: 74 Ectopy: None EKG Initial EKG: Attestation: I personally reviewed and interpreted this EKG as follows: Interpretation: Sinus Rhythm and No Acute Injury Pattern Comments: Normal sinus rhythm rate of 74 no acute signs of [place] nor ischemia nor dysrhythmia. Discharge Plan Dx/Rx/DC Orders Clinical Impression: Dizziness, Unable to ambulate, History of hydrocephalus, History of diabetes mellitus, Orthostatic hypotension Disposition Disposition: Acute Care Hospital [facility]
[2022-02-21 19:00] LABS: Absolute Lymphocyte Count 2.45 X10^3/uL (0.83-4.51); Absolute Neutrophil Count 4.2 X10^3/uL (2.0-7.7); Basophil# 0.05 X10^3/uL; Basophil% 0.7 % (0-1); Eosinophil# 0.16 X10^3/uL; Eosinophils% 2.1 % (0-5); Hematocrit 40.2 % (37-47); Hemoglobin 13.1 g/dL (12.0-15.0); Lymphocyte # 2.45 X10^3/ul (0.83-4.51); Lymphocyte % 32.4 % (19-41); Mean Corp Hgb Conc 32.6 g/dL (32-36); Mean Corpuscular Hgb 27.9 pg (27.0-32.0); Mean Corpuscular Volume 85.5 fL (81-99); Monocyte# 0.67 X10^3/uL; Monocyte% 8.9 % (0-10); NRBC Flagged by Analyzer 0 % (0-5); Neutrophil % 55.5 % (47-70); Platelet Count 217 K/mm3 (150-450); RBC Distribution Width CV 13.3 % (11.6-14.6); RBC Distribution Width SD 41.9 fl (35.1-43.9); White Blood Count 7.6 K/mm3 (4.4-11.0)
[2022-02-21 19:08] LABS: Anion Gap 7 (5-15); BUN 21 mg/dL (7-18); BUN/Creat Ratio 18.3 RATIO (10-20); Calcium,Total 9.9 mg/dL (8.5-10.1); Chloride 102 mmol/L (98-107); Creatinine, Serum 1.15 mg/dL (0.55-1.02); EST Glomerular Filtration Rate 48 mL/min (>60); Est Glom Filt Rate - Afr Amer 58 mL/min (>60); Estimated Creatinine Clearance 28.95 ml/min; Glucose 108 mg/dL (74-106); Potassium 4.2 mmol/L (3.5-5.1); Sodium Level 139 mmol/L (136-145)
[2022-02-21 19:23] VITALS: BP 139/98; BP 160/81; PULSE 73; PULSE 74
--- NOTE | 2022-02-21 21:35 | RAD_ITS ---
CLINICAL HISTORY: Female, 81 years old. 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 The shunt tube is noted extending inferiorly on the right side of the neck crossing the midline of the left chest and entering the upper abdominal cavity in the left side. The tube is curled upon itself in the left mid abdomen. The shunt tube appears continuous. RAD/Shuntogram/Prec Placed Shunt IMPRESSION: Ventriculoperitoneal shunt placement with apparent continuity of the shunt tube with placement as described above Electronically Signed: Antelmo Renae MD at 22:17 EDT ,
--- NOTE | 2022-02-21 21:44 | HP.PCM.HOS_ITS ---
Documented by User: Dr. Shahrzad Johnson DO 02/22/22 01:13 HPI - General General Date of Admission: 02/21/[address] Johnson documentation: Mrs. Conroy is an 81-year-old white female who presented to the emergency department at [facility] on 02/21/2022 for dizziness and vomiting. She presented with her daughter. Her symptoms evidently started on Thursday. She has 24 7 caregivers that help take care of her as the patient does have some mild cognitive impairment and memory loss. She evidently had a fall. The patient does not remember this however with her cognitive impairment her short-term memory is problematic. Patient is a very poor historian. She states when she moves around she gets dizziness but she has difficulty quantifying this and describing it. I asked her if she felt like she was spinning or the world was spinning or if she just felt woozy and she was unable to answer this question. So it is extremely unclear what symptoms she is exactly having. She has had associated nausea and vomiting with these episodes however she states in between her appetites been fine and her oral intake has not been bad. Her daughter is a nurse and she is checked her blood sugars and her blood pressure and push oral fluids with her thinking that this may help however she had no resolution of her symptoms. They called her primary care physician Dr. Mcnair today and their office just told her to come the emergency department. Upon presentation to the emergency department her temperature was 97.5, pulse 82, blood pressure is 142/94, respiratory rate 16, and oxygen saturations are 96% on room air. Her CBC is unremarkable for any abnormalities. Her BMP shows normal electrolytes however her BUN and serum creatinine are mildly elevated from baseline at 21 and 1.15 respectively. Her glucose was normal at 108. With her history of shunt a CT of her head was performed and shows interval right [employer]ATING T[employer] OPER[employer] AP[employer]ENTICE shunt placement with no other interval change or acute findings. This was compared from a CT on 10/12/2019. A shuntogram was performed that showed ventriculoperitoneal shunt placement with apparent continuity of the shunt tube and no abnormalities. Her EKG was unremarkable. Dr. Pete in the emergency department discussed the case with neurosurgery at [facility] (Dr. Simpson) who accepted the patient for transfer if her symptoms do not resolve with hydration or other interventions but there are no current beds available and she was admitted here for further care. Student COMPREHENSIVE OPHTHALMOLOGIST documentation: AMRIK CONROY, is a 81 F who presents to the emergency department with her daughter on 02/21/2022, for dizziness and vomiting. The daughter reports that on Thursday the patient had a fall, but the patient states she does not remember this. The patient then had intermittent dizziness in the days following, with an episode of vomiting on Thursday. The daughter stated that blood pressures and sugars had been at patient baseline. The patient attempted to increase fluids, thinking perhaps this was heat related. Patient also tried allergy medication, as sometimes that is related to feeling off. However, the dizziness and vomiting continued. The patient's primary care physician, Dr. Mcnair, was contacted, and the patient was directed [facility]. On arrival to the emergency department, vital signs were 97.5F, BP 142/94, 82 bpm, 16 rpm, 96% RA. Orthostatic vital signs were obtained and were positive from lying to sitting; the patient was too dizzy to stand. CBC was unremarkable. Patient appears dry with BMP significant for BUN of 21 and creatinine 1.15, which are just slightly above patient baseline. Electrolytes otherwise normal with glucose at 108. A brain CT was obtained, and there was evidence of right frontal [employer]ATING [employer]PER[employer]ICE shunt catheter present with normal calvarium and without intracranial hemorrhage or acute ischemia. The ED physician, Dr. Pete, spoke with a neurosurgeon on-call at [facility], who was agreeable to transfer and accept the patient, however there were no beds available. The patient was discussed with Dr. Pete for admission to further evaluate until [facility] has a bed, if no clinical improvement. On exam, patient describes her dizziness as just feeling disoriented. Patient denies fever, chills, recent illness or sick contacts, headache. FORMERLY [facility], [facility] Medical History Abnormal mammogram of right breast CPAP (continuous positive airway pressure) dependence Depression Diabetes Hyperlipidemia NPH (normal pressure hydrocephalus) Sleep apnea Home Medications aspirin 81 mg tablet,delayed release 81 mg PO DAILY 01/10/19 [History Last Taken Unknown] biotin 10 mg tablet 10 mg PO DAILY 01/10/19 [History Last Taken Unknown] cholecalciferol (vitamin D3) 25 mcg (1,000 unit) capsule 1,000 unit PO DAILY 01/10/19 [History Last Taken Unknown] docusate sodium 100 mg capsule (Colace) 100 mg PO DAILY 01/10/19 [History Last Taken Unknown] glimepiride 4 mg tablet 4 mg PO QAM 01/10/19 [History Last Taken Unknown] glucosamine 750 qq-xojqtjxhhvs-khr no1 625 mg-C 30 mg-farideh 1 mg tablet 1 tab PO DAILY 01/10/19 [History Last Taken Unknown] meloxicam 15 mg tablet (Mobic) 7.5 mg PO DAILY 01/10/19 [History Last Taken Unknown] ovnxqqbvrstp-wprzpdys-goqcic tablet 1 tab PO DAILY 01/10/19 [History Last Taken Unknown] sertraline 100 mg tablet (Zoloft) 100 mg PO DAILY 01/10/19 [History Last Taken Unknown] simvastatin 40 mg tablet (Zocor) 40 mg PO QHS 01/10/19 [History Last Taken Unknown] metformin 500 mg tablet 1,000 mg PO BID 10/12/19 [History Last Taken Unknown] sitagliptin 100 mg tablet 100 mg PO DAILY 10/12/19 [History Last Taken Unknown] Allergy/AdvReac Type Severity Reaction Status Date / Time iodine Allergy Mild Hives Verified 02/21/22 17:53 Penicillins Allergy Mild Hives Verified 02/21/22 17:53 Family History Grandmother Breast cancer Surgical History S/P appendectomy S/P breast biopsy Social History household members: other details: Patient lives alone, but always has caregiver and/or daughter present. housing: house number of children: 3 Smoking Status: Never smoker alcohol intake: current alcohol intake frequency: holidays/special occasions only substance use type: does not use what type of physical activity do you participate in: additional details: Ambulates with walker ROS Neurologic Neurologic: Reports disequilibrium Endocrine Endocrinology: Denies change in body appearance, cold intolerance, excessive sweating, heat intolerance, polydipsia, polyuria or other Hematologic/Lymphatic Hematologic/Lymphatic: Denies anemia or lymphadenopathy Allergic/Immunologic Allergic/Immunologic: Denies rhinitis, eczemia or asthma Vital Signs Vital Signs Vital Signs: 02/21/22 17:50 02/21/22 18:02 02/21/22 18:02 Temperature 97.5 F L 97.5 F L Temperature Source Temporal Temporal Pulse Rate 82 80 80 Pulse Rate [Lying] Pulse Rate [Sitting (for 1 minute prior to obtaining)] Respiratory Rate 16 16 17 Respiratory Effort Respiratory Pattern Blood Pressure 142/94 H 182/96 H 182/96 H Blood Pressure [Lying] Blood Pressure [Sitting (for 1 minute prior to obtaining)] Blood Pressure Mean 110 124 124 Blood Pressure Mean [Lying] Blood Pressure Mean [Sitting (for 1 minute prior to obtaining)] Pulse Ox 96 95 95 Oxygen Delivery Method Room Air Room Air Room Air 02/21/22 18:03 02/21/22 19:23 Temperature Temperature Source Pulse Rate Pulse Rate [Lying] 73 Pulse Rate [Sitting (for 1 minute prior to obtaining)] 74 Respiratory Rate Respiratory Effort Normal Non-Labored Respiratory Pattern Normal Blood Pressure Blood Pressure [Lying] 160/81 H Blood Pressure [Sitting (for 1 minute prior to obtaining)] 139/98 H Blood Pressure Mean Blood Pressure Mean [Lying] 107 Blood Pressure Mean [Sitting (for 1 minute prior to obtaining)] 111 Pulse Ox Oxygen Delivery Method Weight Weight: 77.111 kg Body Mass Index (BMI) 32.1 Physical Exam Const Constitutional Narrative: Obese, elderly white female on exam, but poor historian. Patient is sitting upright in the bed and cooperatively answering questions, pleasantly confused on more elaborate details and short-term memory appears to be impaired HEENT normocephalic, hearing grossly normal bilaterally and moist oral mucous me mbranes Neck no JVD and no carotid bruits Resp no retractions and no use of accessory muscles Auscultation: Negative for crackles, rales, rhonchi or wheezes Cardio no rub, no gallops, no clicks and no JVD GI non-distended; Negative for hepatosplenomegaly Neuro Neuro Narrative: Generalized weakness with proximal musculature weaker than distal musculature Psych Psych Narrative: Confusion on more interval details but is alert and oriented x3, very pleasant Results Lab / Micro Data Result Diagrams: 02/21/22 18:20 02/21/22 18:20 Labs: Laboratory Results - last 24 hr 02/21/22 18:14: POC Glucose 119 H 02/21/22 18:20: WBC 7.6, RBC 4.70, Hgb 13.1, Hct 40.2, MCV 85.5, MCH 27.9, MCHC 32.6, RDW Std Deviation 41.9, RDW Coeff of Danika 13.3, Plt Count 217, MPV 10.0, Immature Gran % (Auto) 0.400, Neut % (Auto) 55.5, Lymph % (Auto) 32.4, Barron % (Auto) 8.9, Eos % (Auto) 2.1, Baso % (Auto) 0.7, Absolute Neuts (auto) 4.2, Absolute Lymphs (auto) 2.45, Nucleated RBC % 0 02/21/22 18:20: Sodium 139, Potassium 4.2, Chloride 102, Carbon Dioxide 30.0, Anion Gap 7, BUN 21 H, Creatinine 1.15 H, Estim Creat Clear Calc 28.95, Est GFR (MDRD) Af Amer 58 L, Est GFR (MDRD) Non-Af 48 L, BUN/Creatinine Ratio 18.3, Glucose 108 H, Calcium 9.9 Rhythm Strip Rhythm Strip: Sinus Rhythm Rate: 74 Ectopy: None Radiology Impression Brain CT 02/21/22 18:29 IMPRESSION: Interval right frontal [employer]ATING [employer]PER[employer]ENTICE shunt catheter. There is no other significant interval change when compared to the previous examination. Electronically Signed: Kurt Sousa DO at 18:56 EDT Reading Location ID and State: [address] [place] [address] Tel [phone], Service support , Assessment & Plan Assessment/Plan (1) Dizziness: (2) Orthostatic hypotension: (3) Unable to ambulate: (4) Dehydration: PLAN: Plan Dr. Johnson Documentation: Lightheadedness/dizziness -Patient with significant difficulty describing sensation and it is somewhat unclear what her symptoms exactly are -It is unclear whether she started having dizziness and then became dehydrated secondary to nausea and vomiting or she was dehydrated and then got dizzy which caused nausea and vomiting--> we will correct orthostasis and reevaluate -Neurological exam on admission is underwhelming -CT is unremarkable -Shuntogram is unremarkable -Orthostatic vitals were positive -We will run IV fluids with LR at 100 cc/h -Repeat orthostatic vitals in a.m. -Check MRI to observe posterior fossa -ER physician did talk to Dr. Simpson, neurosurgeon at [facility], and he did accept the patient for transfer if she does not improve clinically with correction of her orthostasis but no beds are available at this time -May be able to be discharged if her symptoms improve with hydration but if further neurological evaluation is needed with regards to her shunt transfer will be required -Monitor on telemetry for any signs of arrhythmia Dehydration with elevated creatinine -Patient does not meet criteria for acute kidney injury however renal function is not at baseline -IV fluids with LR at 100 cc/h -Repeat lab in a.m. -Hold home meloxicam Orthostatic hypotension -Patient is not on any blood pressure medications -Appears to be somewhat dry -IV fluids as above -Repeat orthostatic vitals in a.m. History of normal pressure hydrocephalus status post shunt -Repeat shunt placed in 2019 at [facility] -CT of the head and shuntogram were unremarkable -Possible transfer for further evaluation depending on clinical status DM-2 -Hold home oral medications -Sliding scale insulin -Accu-Cheks before meals and at bedtime -Carb controlled diet Osteoarthritis -Hold home Cosamin/chondroitin -Hold home meloxicam Hyperlipidemia -Continue statin Depression -Continue sertraline Mild cognitive impairment -Patient with poor short-term memory however no signs of severe dementia -Would recommend outpatient Mini-Mental status exam to be performed once she is not in acute setting DVT prophylaxis -Lovenox -SCDs CODE STATUS -DNR CCA as per discussion with her daughter at the bedside in the emergency department on admission Student COMPREHENSIVE OPHTHALMOLOGIST documentation: Dizziness -Unclear etiology with correlating nausea and vomiting and inability to ambulate -BUN and creatinine slightly elevated from baseline at 21 and 1.15 respectively -Hydration with lactated ringer's -Obtain noncontrast brain MRI to evaluate posterior fossa -Serial troponins -Urinalysis -CBC and CMP in a.m. -Mg/Phos in a.m. -TSH in a.m. -Repeat orthostatic vital signs in a.m. 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[employer]ENTICE shunt -Noncontrast brain CT and shuntogram both demonstrate no abnormality Diabetes mellitus type 2 -Hold glimepiride, metformin, sitagliptin -BGT ACHS -Insulin lispro sliding scale TIDAC -Diet: cardiac/calorie controlled History of hyperlipidemia -Continue atorvastatin Sleep apnea -Daughter bringing CPAP from home for use Depression -Continue sertraline Osteoarthritis -Holding meloxicam due to decreased kidney function -Holding glucosamine DVT prophylaxis -Apply SCDs -Lovenox SC CODE STATUS -DNCC-A verified on admission Charges/Coding Visit Charges Inpatient E&M: 46103 Init Hosp L3 Documented by User: HONG BEAULIEU 02/22/22 00:38 HPI - General General Date of Admission: 02/21/22 Date of Service: 02/21/22 Chief Complaint: I feel disoriented. HPI Narrative AMRIK CONROY, is a 81 F who presents to the emergency department with her daughter on 02/21/2022, for dizziness and vomiting. The daughter reports that on Thursday the patient had a fall, but the patient states she does not remember this. The patient then had intermittent dizziness in the days following, with an episode of vomiting on Thursday. The daughter stated that blood pressures and sugars had been at patient baseline. The patient attempted to increase fluids, thinking perhaps this was heat related. Patient also tried allergy medication, as sometimes that is related to feeling off. However, the dizziness and vomiting continued. The patient's primary care physician, Dr. Mcnair, was contacted, and the patient was directed to the emergency department. On arrival to the emergency department, vital signs were 97.5F, BP 142/94, 82 bpm, 16 rpm, 96% RA. Orthostatic vital signs were obtained and were positive from lying to sitting; the patient was too dizzy to stand. CBC was unrema rkable. Patient appears dry with BMP significant for BUN of 21 and creatinine 1.15, which are just slightly above patient baseline. Electrolytes otherwise normal with glucose at 108. A brain CT was obtained, and there was evidence of right frontal [employer]ATING [employer] OPER[employer]ENTICE shunt catheter present with normal calvarium and without intracranial hemorrhage or acute ischemia. The ED physician, Dr. Pete, spoke with a neurosurgeon on-call at [facility], who was agreeable to transfer and accept the patient, however there were no beds available. The patient was discussed with Dr. Pete for admission to further evaluate until [facility] has a bed, if no clinical improvement. On exam, patient describes her dizziness as just feeling disoriented. Patient denies fever, chills, recent illness or sick contacts, headache. FORMERLY [facility], [facility] Medical History Abnormal mammogram of right breast CPAP (continuous positive airway pressure) dependence Depression Diabetes Hyperlipidemia NPH (normal pressure hydrocephalus) Sleep apnea Home Medications aspirin 81 mg tablet,delayed release 81 mg PO DAILY 01/10/19 [History Last Taken Unknown] biotin 10 mg tablet 10 mg PO DAILY 01/10/19 [History Last Taken Unknown] cholecalciferol (vitamin D3) 25 mcg (1,000 unit) capsule 1,000 unit PO DAILY 01/10/19 [History Last Taken Unknown] docusate sodium 100 mg capsule (Colace) 100 mg PO DAILY 01/10/19 [History Last Taken Unknown] glimepiride 4 mg tablet 4 mg PO QAM 01/10/19 [History Last Taken Unknown] glucosamine 750 gf-cbzyxrlguqq-dpc no1 625 mg-C 30 mg-farideh 1 mg tablet 1 tab PO DAILY 01/10/19 [History Last Taken Unknown] meloxicam 15 mg tablet (Mobic) 7.5 mg PO DAILY 01/10/19 [History Last Taken Unknown] lddiahjwbwac-bgebgkyi-urjdwv tablet 1 tab PO DAILY 01/10/19 [History Last Taken Unknown] sertraline 100 mg tablet (Zoloft) 100 mg PO DAILY 01/10/19 [History Last Taken Unknown] simvastatin 40 mg tablet (Zocor) 40 mg PO QHS 01/10/19 [History Last Taken Unknown] metformin 500 mg tablet 1,000 mg PO BID 10/12/19 [History Last Taken Unknown] sitagliptin 100 mg tablet 100 mg PO DAILY 10/12/19 [History Last Taken Unknown] Allergy/AdvReac Type Severity Reaction Status Date / Time iodine Allergy Mild Hives Verified 02/21/22 17:53 Penicillins Allergy Mild Hives Verified 02/21/22 17:53 Family History Grandmother Breast cancer Surgical History S/P appendectomy S/P breast biopsy Social History household members: other details: Patient lives alone, but always has caregiver and/or daughter present. housing: house number of children: 3 Smoking Status: Never smoker alcohol intake: current alcohol intake frequency: holidays/special occasions only substance use type: does not use what type of physical activity do you participate in: additional details: Ambulates with walker ROS Constitutional Constitutional: Denies anorexia, change in weight, chills, fatigue, fever(s), malaise, night sweats or weakness Eyes Eyes: Denies blurry vision, change in eye color, change in vision, discharge from eye(s), double vision, erythema, eye pain or loss of vision ENT HEENT: Denies abnormal hearing, dysphagia, ear pain, epistaxis, headache(s), hearing loss, nasal congestion, nasal discharge, post nasal drip, sinus pressure or sore throat Cardiovascular Cardiovascular: Reports lightheadedness; Denies chest pain, claudication, dyspnea on exertion, edema, orthopnea, palpitations, paroxysmal nocturnal dyspnea, rapid heart rate or syncope Respiratory/Chest Respiratory/Chest: Denies cough, dyspnea, excessive phlegm production, hemoptysis, productive cough, shortness of breath at rest, shortness of breath with exertion or wheezing Gastrointestinal Gastrointestinal: Reports nausea and vomiting; Denies abdominal pain, coffee ground emesis, constipation, diarrhea, dyspepsia, hematemesis, hematochezia, loose stools or melena Genitourinary Genitourinary: Denies burning urination, difficulty urinating, dysuria, hematuria, nocturia, urinary frequency, urinary hesitancy, urinary incontinence or urinary urgency Musculoskeletal Musculoskeletal: Denies arthralgias, back pain, joint pain, joint stiffness, joint swelling, myalgias or neck pain Neurologic Neurologic: Reports dizziness; Denies abnormal gait, abnormal speech, confusion, disequilibrium, focal weakness, headache(s), numbness, paresthesias, seizure- like activity, seizures, syncope, tingling or tremor(s) Psychiatric Psychiatric: Denies anxiety or depression Endocrine Endocrinology: Denies excessive sweating, polydipsia or polyuria Hematologic/Lymphatic Hematologic/Lymphatic: Denies easy bleeding or easy bruising Allergic/Immunologic Allergic/Immunologic: Denies hives Physical Exam Const alert, oriented x3, no apparent distress, average body habitus, healthy appearing and well nourished Constitutional Narrative: On exam, patient is alert and oriented x3, but poor historian. Patient is sitting upright in the bed and cooperatively answering questions. General Appearance: cooperative HEENT head/scalp atraumatic HEENT Narrative: PLATING [employer] OPER[employer] APPRENTICE shunt palpable under right anterior scalp, nontender with no overlying erythema. Face and Sinus: sinuses nontender and face symmetric Nose: external nose normal External Ear: external ears normal Mouth: oral and palatal mucosa normal Throat: uvula midline and other Other Details: Mallampati 3. No thrush. Eyes PERRL, EOMs intact bilaterally, conjunctivae normal and no scleral icterus Eyes Narrative: Pupils 3 mm bilaterally. Neck no lymphadenopathy and supple Resp normal respiratory effort and clear to auscultation bilaterally Cardio regular rate, regular rhythm, S1 normal heart sound, S2 normal heart sound and no murmurs GI normal to inspection, nondistended, normoactive bowel sounds, soft to palpation and non-tender Extremity normal to inspection, full ROM and no clubbing, cyanosis or edema Skin no rashes or lesions noted, no wounds, skin turgor normal, no jaundice and no petechiae Neuro oriented x3, CN's II-XII intact bilaterally, moves all extremities and no focal motor deficits Sensorium / Orientation: awake, alert and oriented to person Coordination / Balance: [id number]-[id number] test normal Speech: speech normal Motor Exam: strength 5/5 throughout Psych affect normal Mood & Affect: Negative for depressed or anxious Results Lab / Micro Data Attestation: I reviewed the patient's lab results. Result Diagrams: 02/21/22 18:20 02/21/22 18:20 Assessment & Plan Assessment/Plan (1) Dizziness: (2) Orthostatic hypotension: (3) Unable to ambulate: (4) Dehydration: PLAN: Plan Dizziness -Unclear etiology with correlating nausea and vomiting and inability to ambulate -BUN and creatinine slightly elevated from baseline at 21 and 1.15 respectively -Hydration with lactated ringer's -Obtain noncontrast brain MRI to evaluate posterior fossa -Serial troponins -Urinalysis -CBC and CMP in a.m. -Mg/Phos in a.m. -TSH in a.m. -Repeat orthostatic vital signs in a.m. 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
[2022-02-21 22:03] VITALS: BP 166/85; PULSE 75; RESP 24; O2SAT 94
[2022-02-21 22:04] VITALS: BP 159/78; PULSE 76; RESP 20; TEMP 36.6; O2SAT 93
[2022-02-21] MEDS: 0.9% Normal Saline 1,000 ML 999 ML IV (22:08)
[2022-02-21 23:13] VITALS: BMI 35.2
[2022-02-21 23:21] VITALS: BP 160/88; PULSE 60; RESP 16; TEMP 36.5; O2SAT 96
[2022-02-21] MEDS: Lactated Ringers 1,000 ML 100 ML IV (23:35)
[2022-02-21] MEDS: Atorvastatin Calcium 20 MG Tablet PO (23:35)
[2022-02-22] VITALS (10 sets, daily range): BP systolic 148–186; BP diastolic 68–110; PULSE 56–79; RESP 14–18; TEMP 36.2–36.9; O2SAT 96–99
[2022-02-22 01:22] LABS: Troponin-I HS 5 pg/mL (3.0-54.0)
[2022-02-22 02:53] LABS: Troponin-I HS 9 pg/mL (3.0-54.0)
[2022-02-22 06:20] LABS: Absolute Lymphocyte Count 2.24 X10^3/uL (0.83-4.51); Absolute Neutrophil Count 4.8 X10^3/uL (2.0-7.7); Basophil# 0.03 X10^3/uL; Basophil% 0.4 % (0-1); Eosinophil# 0.12 X10^3/uL; Eosinophils% 1.5 % (0-5); Hematocrit 40.1 % (37-47); Lymphocyte # 2.24 X10^3/ul (0.83-4.51); Lymphocyte % 28.7 % (19-41); Mean Corp Hgb Conc 32.4 g/dL (32-36); Mean Corpuscular Hgb 27.6 pg (27.0-32.0); Mean Corpuscular Volume 85.1 fL (81-99); Mean Platelet Vol. 9.7 fl (6.2-12.0); Monocyte# 0.61 X10^3/uL; Monocyte% 7.8 % (0-10); NRBC Flagged by Analyzer 0 % (0-5); Neutrophil # 4.79 X10^3/uL (2.7-7.7); Neutrophil % 61.3 % (47-70); Platelet Count 201 K/mm3 (150-450); RBC Distribution Width CV 13.4 % (11.6-14.6); RBC Distribution Width SD 41.8 fl (35.1-43.9); Red Blood Count 4.71 M/mm3 (4.2-5.4); White Blood Count 7.8 K/mm3 (4.4-11.0)
[2022-02-22 06:51] LABS: Bedside Glucose 136 mg/dL (74-106)
[2022-02-22 07:06] LABS: ALB/GLOB Ratio 1.1 RATIO (0.9-2.4); AST(SGOT) 15 U/L (15-37); Alanine Aminotransfer ALT/SGPT 22 U/L (13-56); Albumin, Serum 3.5 g/dL (3.2-5.0); Alkaline Phosphatase 62 U/L (45-117); Anion Gap 6 (5-15); BUN 16 mg/dL (7-18); BUN/Creat Ratio 16.2 RATIO (10-20); Calcium,Total 9.3 mg/dL (8.5-10.1); Chloride 105 mmol/L (98-107); Creatinine, Serum 0.99 mg/dL (0.55-1.02); EST Glomerular Filtration Rate 57 mL/min (>60); Est Glom Filt Rate - Afr Amer 69 mL/min (>60); Estimated Creatinine Clearance 32.01 ml/min; Globulin 3.2 g/dL (2.2-4.2); Glucose 149 mg/dL (74-106); Magnesium 2.1 mg/dL (1.6-2.6); Potassium 3.9 mmol/L (3.5-5.1); Protein, Total 6.7 g/dL (6.4-8.2); Sodium Level 140 mmol/L (136-145); Thyroid Stim Hormone (TSH) 5.17 uIU/mL (0.358-3.74); Troponin-I HS 10 pg/mL (3.0-54.0)
[2022-02-22] MEDS: Multivitamins,Ther W-Minerals Tablet 1 TABLET PO (09:44)
[2022-02-22] MEDS: Lactated Ringers 1,000 ML 100 ML IV ×2 (09:44→19:54)
[2022-02-22] MEDS: Docusate Sodium 100 MG Capsule PO (09:45)
[2022-02-22] MEDS: Sertraline 100 MG Tablet PO (09:45)
[2022-02-22] MEDS: Enoxaparin 30 MG/0.3 ML Syringe SC (09:45)
[2022-02-22] MEDS: Aspirin E.C. 81 MG Tablet PO (09:45)
[2022-02-22] MEDS: Carbidopa/Levodopa 25/100 Tablet PO ×3 (09:51→21:00)
[2022-02-22 11:56] LABS: Bedside Glucose 183 mg/dL (74-106)
[2022-02-22] MEDS: Insulin Lispro 100 UNIT/ML INSULN.PEN SC ×2 (12:07→17:08)
--- NOTE | 2022-02-22 14:06 | PN.HOSP_ITS ---
Subjective Subjective Still little bit dizzy but better than when she came in. Unfortunate she cannot get an MRI because of a metal valve in her shunt, but she denies any focal weakness or decreased sensation. The dizziness does not prevent ambulation Objective Data Objective Data Vital Signs: Vital Signs Temp Pulse Resp BP Pulse Ox 98 F 75 14 177/84 H 99 02/22/22 09:20 02/22/22 12:12 02/22/22 09:20 02/22/22 09:20 02/22/22 11:16 Oxygen Delivery Method Room Air Weight: 180 lb 6.918 oz Body Mass Index (BMI) 35.2 Intake & Output: Intake and Output for Last 24 Hours 02/21/22 02/22/22 02/23/22 03:59 03:59 03:59 Intake Total 1000 / 1000 1325 / 1325 Output Total 1000 / 1000 Balance 1000 / 1000 325 / 325 Lab / Micro Data Result Diagrams: 02/22/22 06:00 02/22/22 06:00 Labs: Laboratory Results - last 24 hr 02/21/22 18:14: POC Glucose 119 H 02/21/22 18:20: WBC 7.6, RBC 4.70, Hgb 13.1, Hct 40.2, MCV 85.5, MCH 27.9, MCHC 32.6, RDW Std Deviation 41.9, RDW Coeff of Danika 13.3, Plt Count 217, MPV 10.0, Immature Gran % (Auto) 0.400, Neut % (Auto) 55.5, Lymph % (Auto) 32.4, [place] % (Auto) 8.9, Eos % (Auto) 2.1, Baso % (Auto) 0.7, Absolute Neuts (auto) 4.2, Absolute Lymphs (auto) 2.45, Nucleated RBC % 0 02/21/22 18:20: Sodium 139, Potassium 4.2, Chloride 102, Carbon Dioxide 30.0, Anion Gap 7, BUN 21 H, Creatinine 1.15 H, Estim Creat Clear Calc 28.95, Est GFR (MDRD) Af Amer 58 L, Est GFR (MDRD) Non-Af 48 L, BUN/Creatinine Ratio 18.3, Glucose 108 H, Calcium 9.9 02/22/22 00:45: Troponin I High Sens 5 02/22/22 02:28: Troponin I High Sens 9 02/22/22 06:00: WBC 7.8, RBC 4.71, Hgb 13.0, Hct 40.1, MCV 85.1, MCH 27.6, MCHC 32.4, RDW Std Deviation 41.8, RDW Coeff of Danika 13.4, Plt Count 201, MPV 9.7, Immature Gran % (Auto) 0.300, Neut % (Auto) 61.3, Lymph % (Auto) 28.7, [place] % (Auto) 7.8, Eos % (Auto) 1.5, Baso % (Auto) 0.4, Absolute Neuts (auto) 4.8, Absolute Lymphs (auto) 2.24, Nucleated RBC % 0 02/22/22 06:00: Sodium 140, Potassium 3.9, Chloride 105, Carbon Dioxide 29.0, Anion Gap 6, BUN 16, Creatinine 0.99, Estim Creat Clear Calc 32.01, Est GFR (MDRD) Af Amer 69, Est GFR (MDRD) Non-Af 57 L, BUN/Creatinine Ratio 16.2, G lucose 149 H, Calcium 9.3, Phosphorus 3.0, Magnesium 2.1, Total Bilirubin 0.30, AST 15, ALT 22, Alkaline Phosphatase 62, Troponin I High Sens 10, Total Protein 6.7, Albumin 3.5, Globulin 3.2, Albumin/Globulin Ratio 1.1, TSH 5.17 H 02/22/22 06:45: POC Glucose 136 H 02/22/22 11:38: POC Glucose 183 H Radiography Diagnostic Testing: Radiology Impression Brain CT 02/21/22 18:29 IMPRESSION: Interval right frontal STARS COORDINATOR shunt catheter. There is no other significant interval change when compared to the previous examination. Electronically Signed: Kurt Sousa DO at 18:56 EDT , Shuntogram 02/21/22 21:35 IMPRESSION: Ventriculoperitoneal shunt placement with apparent continuity of the shunt tube with placement as described above Electronically Signed: Antelmo Renae MD at 22:17 EDT , Rhythm Strip Rhythm Strip: Sinus Rhythm Rate: 74 Ectopy: None Physical Exam Const alert, oriented x3 and no apparent distress General Appearance: cooperative HEENT normocephalic and moist oral mucous membranes Eyes PERRL, EOMs intact bilaterally and conjunctivae normal Neck supple and no JVD Resp normal respiratory effort, no retractions, no use of accessory muscles and clear to auscultation bilaterally Auscultation: Negative for crackles, rales, rhonchi or wheezes Cardio regular rate, regular rhythm, S1 normal heart sound, S2 normal heart sound and no murmurs GI soft to palpation, non-tender and non-distended; Negative for hepatosplenomegaly Extremity no clubbing, cyanosis or edema Skin no rashes or lesions noted Neuro no focal motor deficits and no sensory deficits noted Psych affect normal Appearance: appropriate Assessment & Plan Assessment/Plan (1) Dizziness: (2) Orthostatic hypotension: (3) Unable to ambulate: (4) Dehydration: PLAN: Plan 1. Dizziness and weakness with dehydration and orthostatic hypotension/normal pressure hydrocephalus status post shunt ? Unlikely to be a stroke, will cancel MRI as she cannot have it ? No need and transferring as she is improving with some IV fluids which we will continue for another 24 hours ? Renal function has returned to baseline ? Continue with Sinemet 2. DM2 ? We will hold home medications ? Sliding scale insulin with Accu-Cheks AC at bedtime ? We will adjust as necessary 3. HLD ? Stable ? Continue with her home statin 4. Anxiety depression ? Stable ? Continue with Zoloft 5. CHARLES ? Stable ? Continue with CPAP 6. Osteoarthritis ? Stable ? We will hold her home medication secondary to her elevated creatinine on admission DVT: Lovenox Charges/Coding Visit Charges OBSV E&M: 22447 Subsequent observation care L2
--- NOTE | 2022-02-22 16:10 | CASEMGMT ---
AFUA SERNA NOTE: Intro role of CM to patient. Pt sitting up in recliner chair. Pt w/history of cognitive impairment and memory loss. Pt agreeable to AFUA SERNA placing call to her daughter, Roselyn. AFUA SERNA introduced self and role. Roselyn states she is HPOA. HERNANDEZ form explained re: Observation status for treatment of lightheadedness. Explained hospitalization will be paid per her insurance policy for Outpatient billing and condition will continue to be evaluated for Inpt necessity. Also let pt know that [facility] sends paper in the billing packet with their phone number if questions arise. Discussed Pharmacy section of HERNANDEZ form and self administered medication guideline. Pt verbalizes understanding and does not have further questions. Form signed, copy made and placed in chart, and original given to pt.
--- NOTE | 2022-02-22 16:15 | CASEMGMT ---
AFUA SERNA NOTE: PT/OT notes have been reviewed. Additional therapy recommended. AFUA SERNA to pt's room. Intro role of CM to patient. Pt sitting up in recliner chair. Inquired if pt is interested in [facility]. She states she would be agreeable but does not know what agency she would like or what other needs she may have. ?Pt was provided with list of?[facility] providers including quality and resource use data and consistent with the patient's preferred geographic region, medical needs, and insurance network. ? Pt agreeable to AFUA SERNA placing call to her daughter, Roselyn. Call placed to Roselyn. She states she is HPOA. Roselyn confirms pt has 24/ caregivers and she and her sister help to manage her medications and appts. Discussed HHC and she is interested. She would like [facility]. Dtr and pt made aware referral can be made, but d/t offices not open over the weekend, they would not be available to review and determine acceptance until Thursday. She was made aware, if pt discharges home over the weekend and if [facility] not able to accept pt, then she would need to f/u w/PCP for referral to another agency. She voices understanding. HERNANDEZ form explained to daughter at this time re: Observation status for treatment of lightheadedness. Explained hospitalization will be paid per pt's insurance policy for Outpatient billing and condition will continue to be evaluated for Inpt necessity. Also let dtr know that [facility] sends paper in the billing packet with their phone number if questions arise. Discussed Pharmacy section of [facility]Z form and self administered medication guideline. Dtr verbalizes understanding and does not have further questions. Form signed via telephone signature by this AFUA SERNA and Laquita CAAL. Copy made and placed in chart, and original placed in pt's room. Gordo VAZQUEZ RN, CM
[2022-02-22 16:46] LABS: Bacteria 0 SEEN /hpf (None Seen); Mucous, Urine 0 SEEN /hpf (<or=2+); Red Blood Cells-Urine 0 SEEN /hpf (0-5); Squamous Epithelial Cells - UA 0 SEEN /hpf (5-10); White Blood Cells 0 SEEN /hpf (0-5)
[2022-02-22 16:47] LABS: Color, Urine Yellow (Yellow); Glucose, Dipstick 1000 mg/dl (Normal); Ketone-Dipstick Negative (Negative); Leukocyte Esterase-Dipstick Negative /ul (Negative); Nitrite-Dipstick Negative (Negative); Occult Blood-Urine Negative /ul (Negative); Protein-Dipstick Negative (Negative); Specific Gravity, Urine 1.015 (1.002-1.030); Urine Bilirubin Dipstick Negative (Negative); Urine Clarity Clear (Clear); Urine Urobilinogen Normal (Normal)
[2022-02-22 17:20] LABS: Bedside Glucose 198 mg/dL (74-106)
[2022-02-22] MEDS: Atorvastatin Calcium 20 MG Tablet PO (21:00)
[2022-02-22 21:45] LABS: Bedside Glucose 178 mg/dL (74-106)
[2022-02-23] VITALS (13 sets, daily range): BP systolic 132–198; BP diastolic 66–100; PULSE 68–95; RESP 15–18; TEMP 36.6; O2SAT 95–97
[2022-02-23] MEDS: hydrALAZINE 20 MG/ML Vial 10 MG IV (03:02)
[2022-02-23] MEDS: 0.9% Saline Lock 10 ML Syringe IV ×2 (03:02→21:25)
[2022-02-23] MEDS: Lactated Ringers 1,000 ML 100 ML IV (04:18)
[2022-02-23] MEDS: cloNIDine HCl 0.1 MG Tablet PO (06:01)
[2022-02-23 07:08] LABS: Absolute Lymphocyte Count 1.93 X10^3/uL (0.83-4.51); Absolute Neutrophil Count 5.6 X10^3/uL (2.0-7.7); Basophil# 0.03 X10^3/uL; Basophil% 0.4 % (0-1); Eosinophil# 0.13 X10^3/uL; Eosinophils% 1.5 % (0-5); Hematocrit 41.6 % (37-47); Hemoglobin 13.5 g/dL (12.0-15.0); Lymphocyte # 1.93 X10^3/ul (0.83-4.51); Lymphocyte % 22.9 % (19-41); Mean Corp Hgb Conc 32.5 g/dL (32-36); Mean Corpuscular Hgb 27.8 pg (27.0-32.0); Mean Corpuscular Volume 85.8 fL (81-99); Mean Platelet Vol. 9.9 fl (6.2-12.0); Monocyte# 0.65 X10^3/uL; Monocyte% 7.7 % (0-10); NRBC Flagged by Analyzer 0 % (0-5); Neutrophil # 5.62 X10^3/uL (2.7-7.7); Neutrophil % 66.9 % (47-70); Platelet Count 211 K/mm3 (150-450); RBC Distribution Width CV 13.2 % (11.6-14.6); RBC Distribution Width SD 41.1 fl (35.1-43.9); Red Blood Count 4.85 M/mm3 (4.2-5.4); White Blood Count 8.4 K/mm3 (4.4-11.0)
[2022-02-23 07:28] LABS: Anion Gap 7 (5-15); BUN 14 mg/dL (7-18); BUN/Creat Ratio 19.2 RATIO (10-20); Calcium,Total 9.6 mg/dL (8.5-10.1); Chloride 104 mmol/L (98-107); Creatinine, Serum 0.73 mg/dL (0.55-1.02); EST Glomerular Filtration Rate 81 mL/min (>60); Est Glom Filt Rate - Afr Amer 98 mL/min (>60); Estimated Creatinine Clearance 31.69 ml/min; Glucose 209 mg/dL (74-106); Potassium 3.6 mmol/L (3.5-5.1); Sodium Level 137 mmol/L (136-145)
[2022-02-23 07:51] LABS: Bedside Glucose 277 mg/dL (74-106)
[2022-02-23] MEDS: Enoxaparin 30 MG/0.3 ML Syringe SC (09:36)
[2022-02-23] MEDS: Multivitamins,Ther W-Minerals Tablet 1 TABLET PO (09:36)
[2022-02-23] MEDS: amLODIPine 5 MG Tablet PO (09:36)
[2022-02-23] MEDS: Docusate Sodium 100 MG Capsule PO (09:36)
[2022-02-23] MEDS: Aspirin E.C. 81 MG Tablet PO (09:37)
[2022-02-23] MEDS: Insulin Lispro 100 UNIT/ML INSULN.PEN SC ×3 (09:37→17:19)
[2022-02-23] MEDS: Sertraline 100 MG Tablet PO (09:37)
[2022-02-23] MEDS: Carbidopa/Levodopa 25/100 Tablet PO ×3 (09:37→21:29)
[2022-02-23 12:35] LABS: Bedside Glucose 235 mg/dL (74-106)
--- NOTE | 2022-02-23 14:39 | PCM.PN.HOSP ---
Subjective Subjective Continues with dizziness and orthostatic hypotension. Discontinued her fluids today to try to encourage her to have p.o. intake. Also blood pressures were up into the 190s so Norvasc was started Objective Data Objective Data Vital Signs: Vital Signs Temp Pulse Resp BP Pulse Ox 97.8 F 81 15 151/77 H 96 02/23/22 13:33 02/23/22 13:33 02/23/22 13:33 02/23/22 13:33 02/23/22 13:33 Oxygen Delivery Method Room Air Weight: 180 lb 6.918 oz Body Mass Index (BMI) 35.2 Intake & Output: Intake and Output for Last 24 Hours 02/22/22 02/23/22 02/24/22 03:59 03:59 03:59 Intake Total 1000 / 1000 3125 / 3125 2026.67 / 2025.67 Output Total 1400 / 1400 1000 / 1000 Balance 1000 / 1000 1725 / 1725 1026.67 / 1026.67 Lab / Micro Data Result Diagrams: 02/23/22 05:55 02/23/22 05:55 Labs: Laboratory Results - last 24 hr 02/22/22 16:40: Urine Color Yellow, Urine Clarity Clear, Urine pH 8.0, Ur Specific [place] 1.015, Urine Protein Negative, Urine Glucose (UA) 1000 H, Urine Ketones Negative, Urine Occult Blood Negative, Urine Nitrite Negative, Urine Bilirubin Negative, Urine Urobilinogen Normal, Ur Leukocyte Esterase Negative, Urine RBC 0 SEEN, Urine WBC 0 SEEN, Ur Squamous Epith Cells 0 SEEN, Urine Bacteria 0 SEEN, Urine Mucus 0 SEEN 02/22/22 17:06: POC Glucose 198 H 02/22/22 19:59: POC Glucose 178 H 02/23/22 05:55: WBC 8.4, RBC 4.85, Hgb 13.5, Hct 41.6, MCV 85.8, MCH 27.8, MCHC 32.5, RDW Std Deviation 41.1, RDW Coeff of Danika 13.2, Plt Count 211, MPV 9.9, Immature Gran % (Auto) 0.600, Neut % (Auto) 66.9, Lymph % (Auto) 22.9, [place] % (Auto) 7.7, Eos % (Auto) 1.5, Baso % (Auto) 0.4, Absolute Neuts (auto) 5.6, Absolute Lymphs (auto) 1.93, Nucleated RBC % 0 02/23/22 05:55: Sodium 137, Potassium 3.6, Chloride 104, Carbon Dioxide 26.0, Anion Gap 7, BUN 14, Creatinine 0.73, Estim Creat Clear Calc 31.69, Est GFR (MDRD) Af Amer 98, Est GFR (MDRD) Non-Af 81, BUN/Creatinine Ratio 19.2, Glucose 209 H, Calcium 9.6 02/23/22 07:42: POC Glucose 277 H 02/23/22 12:09: POC Glucose 235 H Rhythm Strip Rhythm Strip: Sinus Rhythm Rate: 74 Ectopy: None Physical Exam Narrative Const alert, oriented x3 and no apparent distress General Appearance: cooperative HEENT normocephalic and moist oral mucous membranes Eyes PERRL, EOMs intact bilaterally and conjunctivae normal Neck supple and no JVD Resp normal respiratory effort, no retractions, no use of accessory muscles and clear to auscultation bilaterally Auscultation: Negative for crackles, rales, rhonchi or wheezes Cardio regular rate, regular rhythm, S1 normal heart sound, S2 normal heart sound and no murmurs GI soft to palpation, non-tender and non-distended; Negative for hepatosplenomegaly Extremity no clubbing, cyanosis or edema Skin no rashes or lesions noted Neuro no focal motor deficits and no sensory deficits noted Psych affect normal Appearance: appropriate Assessment & Plan Assessment/Plan (1) Dizziness: (2) Orthostatic hypotension: (3) Unable to ambulate: (4) Dehydration: PLAN: Plan 1. Dizziness and weakness with dehydration and orthostatic hypotension/normal pressure hydrocephalus status post shunt ? Unlikely to be a stroke, will cancel MRI as she cannot have it ? She did have improvement with IV fluids ? Renal function has returned to baseline ? Discussed situation with her daughter and she states that she was started on Sinemet because initially when she was having the gait disturbance the neurologist felt that it could be Parkinson's however they found out that it was NPH and so a shunt was put in. Per the daughter, she is never been notified that her mother should not be on Sinemet. During the brief literature review there does not appear to be any indication for Sinemet and NPH therefore we will slowly discontinue this drug as it can cause orthostatic hypotension as well as dizziness especially since we do not have any other causes at this time. 2. DM2 ? We will hold home medications ? Sliding scale insulin with Accu-Cheks AC at bedtime ? We will adjust as necessary 3. HLD ? Stable ? Continue with her home statin 4. Anxiety depression ? Stable ? Continue with Zoloft 5. CHARLES ? Stable ? Continue with CPAP 6. Osteoarthritis ? Stable ? We will hold her home medication secondary to her elevated creatinine on admission DVT: Lovenox Charges/Coding Visit Charges OBSV E&M: 85606 Subsequent observation care L2
[2022-02-23 17:25] LABS: Bedside Glucose 223 mg/dL (74-106)
[2022-02-23] MEDS: Atorvastatin Calcium 20 MG Tablet PO (21:29)
[2022-02-23] MEDS: Insulin Glargine-YFGN 100 UNIT/ML Pen SC (21:30)
[2022-02-23 22:26] LABS: Bedside Glucose 255 mg/dL (74-106)
[2022-02-24] VITALS (12 sets, daily range): BP systolic 149–169; BP diastolic 67–94; PULSE 62–104; RESP 16–18; TEMP 36.4–36.5; O2SAT 96–99
[2022-02-24] MEDS: hydrALAZINE 20 MG/ML Vial 10 MG IV (03:58)
[2022-02-24] MEDS: 0.9% Saline Lock 10 ML Syringe IV (03:58)
[2022-02-24] MEDS: Insulin Lispro 100 UNIT/ML INSULN.PEN SC ×3 (06:49→17:04)
[2022-02-24 06:56] LABS: Bedside Glucose 246 mg/dL (74-106)
[2022-02-24] MEDS: Enoxaparin 30 MG/0.3 ML Syringe SC (08:50)
[2022-02-24] MEDS: Sertraline 100 MG Tablet PO (08:50)
[2022-02-24] MEDS: Multivitamins,Ther W-Minerals Tablet 1 TABLET PO (08:51)
[2022-02-24] MEDS: Carbidopa/Levodopa 25/100 Tablet PO (08:51)
[2022-02-24] MEDS: Docusate Sodium 100 MG Capsule PO (08:51)
[2022-02-24] MEDS: Aspirin E.C. 81 MG Tablet PO (08:51)
[2022-02-24] MEDS: amLODIPine 5 MG Tablet PO (08:51)
--- NOTE | 2022-02-24 09:52 | DCINST_ITS ---
Discharge Instructions Diet Discharge Diet: Carb Control Diet Activity Discharge Activity: Return to Normal Activity Dressing / Incision Call your doctor if you observe: Fever of 101 or Higher, Shortness of breath, Dizziness, Fainting spells, Swelling in the ankles, Chest pain and Increased palpitations (irregular heartbeat) Follow Up Care Test Results: Test results from this visit will be discussed in further detail at your follow- up appointment, if applicable. Discharge Plan Admission Admit Date/Time: 02/21/22 21:44 Attending Provider: Ray Aviles Primary Care Provider: Jericho Mcnair Consulting Providers: Shahrzad Johnson Discharge Orders/Prescriptions Prescriptions: Continued aspirin 81 mg tablet,delayed release (DR/EC) 81 mg PO DAILY glimepiride 4 mg tablet 4 mg PO QAM cholecalciferol (vitamin D3) 1,000 unit capsule 1,000 unit capsule 2,000 unit PO DAILY simvastatin [Zocor] 40 mg tablet 40 mg PO QHS dzacdvxrpooj-kuwjofzq-xidhap tablet 1 tab PO DAILY biotin 10 mg tablet 10 mg PO DAILY pctskdli-ygzuc-chu8-C-farideh-bor [id number] mg tablet 1 tab PO DAILY meloxicam [Mobic] 15 mg tablet 7.5 mg PO DAILY docusate sodium [Colace] 100 mg capsule 100 mg PO DAILY sertraline [Zoloft] 100 mg tablet 200 mg PO DAILY metformin 500 MG tablet 1,000 mg PO BID Label Comments: TAKE 2 TABLETS BY MOUTH IN THE MORNING, 1 TABLET WITH LUNCH, AND 2 TABLETS WITH DINNER sitagliptin 100 tablet 100 mg PO DAILY psyllium Packet 1 packet PO BID Rx Instructions: mix into at least 8 oz of water or juice before administering oxybutynin chloride 5 mg tablet extended release 24hr 5 mg PO DAILY Label Comments: TAKE 1 TABLET BY MOUTH EVERY DAY zinc 50 mg Tablet 50 mg PO DAILY carbidopa-levodopa 25-100 mg Tablet 1 tab PO DAILY carbidopa-levodopa 25-100 mg Tablet 1 tab PO QHS Discontinued carbidopa-levodopa 25-100 mg Tablet 0.5 tab PO 1400 Referrals / Follow Up: Jericho Mcnair MD [Primary Care Provider] - Within 1 Week Zaheer Geller NP, DELIVERY CREW MEMBER-C [NON-STAFF] - Disposition Disposition (needs filled in before D/C Order can be placed): Home Health Service
--- NOTE | 2022-02-24 10:13 | CASEMGMT ---
Call from Charo at [facility] and she states they can accept pt and do SOC 02-26-22. Pt updated at this time, voices understanding and states no further concerns for discharge. Doris CAAL CM
--- NOTE | 2022-02-24 11:32 | DS.PCM_ITS ---
Providers Date of Admission: 02/21/22 Primary Care Physician: Dr. Jericho Mcnair MD Reason For Visit: LIGHTHEADNESS Diagnosis Discharge Diagnosis (1) Dizziness: Status: Acute Code(s): R42 - Dizziness and giddiness (2) Orthostatic hypotension: Status: Acute Code(s): I95.1 - Orthostatic hypotension (3) Unable to ambulate: Status: Acute Code(s): R26.2 - Difficulty in walking, not elsewhere classified (4) Dehydration: Status: Acute Code(s): E86.0 - Dehydration Medications at Discharge Home Medications aspirin 81 mg tablet,delayed release 81 mg PO DAILY 01/10/19 biotin 10 mg tablet 10 mg PO DAILY 01/10/19 cholecalciferol (vitamin D3) 25 mcg (1,000 unit) capsule 2,000 unit PO DAILY 01/10/19 docusate sodium 100 mg capsule (Colace) 100 mg PO DAILY 01/10/19 glimepiride 4 mg tablet 4 mg PO QAM 01/10/19 glucosamine 750 jo-xawlexfusci-dlx no1 625 mg-C 30 mg-farideh 1 mg tablet 1 tab PO DAILY 01/10/19 meloxicam 15 mg tablet (Mobic) 7.5 mg PO DAILY 01/10/19 hjwokvcnxais-evfmukid-tyscey tablet 1 tab PO DAILY 01/10/19 sertraline 100 mg tablet (Zoloft) 200 mg PO DAILY depression 01/10/19 simvastatin 40 mg tablet (Zocor) 40 mg PO QHS 01/10/19 metformin 500 mg tablet 1,000 mg PO BID diabetes 10/12/19 sitagliptin 100 mg tablet 100 mg PO DAILY diabetes 10/12/19 carbidopa 25 mg-levodopa 100 mg tablet 1 tab PO DAILY Check with primary doctor 02/22/22 carbidopa 25 mg-levodopa 100 mg tablet 1 tab PO QHS 02/22/22 oxybutynin chloride 5 mg tablet,extended release 24 hr 5 mg PO DAILY overactive bladder 02/22/22 psyllium 1 packet PO BID constipation 02/22/22 zinc 50 mg tablet 50 mg PO DAILY 02/22/22 Hospital Course Operations None Procedures None Summary of Care Provided Minutes Spent on Discharge: 45 Hospital Course: Per HPI: Mrs. Mike is an 81-year-old white female who presented to the emergency department at [facility] on 02/21/2022 for dizziness and vomiting.? She presented with her daughter.? Her symptoms evidently started on Thursday.? She has 24 7 caregivers that help take care of her as the patient does have some mild cognitive impairment and memory loss.? She evidently had a fall.? The patient does not remember this however with her cognitive impairment her short-term memory is problematic.? Patient is a very poor historian.? She states when she moves around she gets dizziness but she has difficulty quantifying this and describing it.? I asked her if she felt like she was spinning or the world was spinning or if she just felt woozy and she was unable to answer this question.? So it is extremely unclear what symptoms she is exactly having.? She has had associated nausea and vomiting with these episodes however she states in between her appetites been fine and her oral intake has not been bad.? Her daughter is a nurse and she is checked her blood sugars and her blood pressure and push oral fluids with her thinking that this may help however she had no resolution of her symptoms.? They called her primary care physician Dr. Mcnair today and their office just told her to come the emergency department. Upon presentation to the emergency department her temperature was 97.5, pulse 82, blood pressure is 142/94, respiratory rate 16, and oxygen saturations are 96% on room air.? Her CBC is unremarkable for any abnormalities.? Her BMP shows normal electrolytes however her BUN and serum creatinine are mildly elevated from baseline at 21 and 1.15 respectively.? Her glucose was normal at 108.? With her history of shunt a CT of her head was performed and shows interval right TRAFFIC INSPECTOR shunt placement with no other interval change or acute findings.? This was compared from a CT on 10/12/2019.? A shuntogram was performed that showed ventriculoperitoneal shunt placement with apparent continuity of the shunt tube and no abnormalities.? Her EKG was unremarkable. Dr. Pete in the emergency department discussed the case with neurosurgery at [facility] (Dr. Simpson) who accepted the patient for transfer if her symptoms do not resolve with hydration or other interventions but there are no current beds available and she was admitted here for further care. Hospital Course: 1.? Dizziness and weakness with dehydration and orthostatic hypotension/normal pressure hydrocephalus status post shunt ? Unlikely to be a stroke, will cancel MRI as she cannot have it ? She did have improvement with IV fluids ? Renal function has returned to baseline ? Discussed situation with her daughter and she states that she was started on Sinemet because initially when she was having the gait disturbance the neurologist felt that it could be Parkinson's however they found out that it was NPH and so a shunt was put in.? Per the daughter, she is never been notified that her mother should not be on Sinemet.? During the brief literature review there does not appear to be any indication for Sinemet and NPH therefore we will slowly discontinue this drug as it can cause orthostatic hypotension as well as dizziness especially since we do not have any other causes at this time. ? She still has some dizziness today however she also ate almost her entire breakfast and denies any nausea. I discussed with her the plan for possible discharge today she expressed understanding of the risk and benefits of going home and is okay with going home with home health today. If she does have any recurring symptoms would recommend following up with her neurologist for further evaluation of her shunt though the shuntogram here showed a normal functioning shunt. I also discussed with her the need to stay hydrated, the daughter did relay to me that she controls, she drinks simply because she has incontinence issues especially at night. 2.? DM2, HLD, anxiety, depression, CHARLES, osteoarthritis are all chronic medical conditions which complicate her care. Her home medications were continued where appropriate. Physical Exam Narrative Const alert, oriented x3 and no apparent distress General Appearance: cooperative HEENT normocephalic and moist oral mucous membranes Eyes PERRL, EOMs intact bilaterally and conjunctivae normal Neck supple and no JVD Resp normal respiratory effort, no retractions, no use of accessory muscles and clear to auscultation bilaterally Auscultation: Negative for crackles, rales, rhonchi or wheezes Cardio regular rate, regular rhythm, S1 normal heart sound, S2 normal heart sound and no murmurs GI soft to palpation, non-tender and non-distended; Negative for hepatosplenomegaly Extremity no clubbing, cyanosis or edema Skin no rashes or lesions noted Neuro no focal motor deficits and no sensory deficits noted Psych affect normal Appearance: appropriate Weight / BMI Weight Weight: 180 lb 6.918 oz Body Mass Index (BMI) 35.2 ABG / Lab / Microbiology Data Result Diagrams: 02/23/22 05:55 02/23/22 05:55 Laboratory: Laboratory Results - last 24 hr 02/23/22 12:09: POC Glucose 235 H 02/23/22 17:11: POC Glucose 223 H 02/23/22 21:24: POC Glucose 255 H 02/24/22 06:48: POC Glucose 246 H D/C Instructions Discharge Diet: Carb Control Diet Call your doctor if you observe: Fever of 101 or Higher, Shortness of breath, Dizziness, Fainting spells, Swelling in the ankles, Chest pain and Increased palpitations (irregular heartbeat) Meaningful Use Info Meaningful Use Diagnoses (Choose all that apply): None applicable Discharge Plan Admission Admit Date/Time: 02/21/22 21:44 Attending Provider: Ray Aviles Primary Care Provider: Jericho Mcnair Consulting Providers: Shahrzad Johnson Instructions Additional Instructions / Restrictions: In 1 week decrease the nighttime levodopa dose to half a tablet for 1 week and then in the next week decrease the morning levodopa dose to half a tablet to your taking half a tablet twice a day, and then the next week discontinue the nighttime dose and the week after that discontinue the daytime dose. Please follow-up with your PCP as well as your neurologist if you have any further symptoms or worsening symptoms. Discharge Orders/Prescriptions Prescriptions: Continued aspirin 81 mg tablet,delayed release (DR/EC) 81 mg PO DAILY glimepiride 4 mg tablet 4 mg PO QAM cholecalciferol (vitamin D3) 1,000 unit capsule 1,000 unit capsule 2,000 unit PO DAILY simvastatin [Zocor] 40 mg tablet 40 mg PO QHS yvofoyocbtix-qxijwmhj-sqjiua tablet 1 tab PO DAILY biotin 10 mg tablet 10 mg PO DAILY ljkadgpv-ckquh-oml9-C-farideh-bor [id number] mg tablet 1 tab PO DAILY meloxicam [Mobic] 15 mg tablet 7.5 mg PO DAILY docusate sodium [Colace] 100 mg capsule 100 mg PO DAILY sertraline [Zoloft] 100 mg tablet 200 mg PO DAILY metformin 500 MG tablet 1,000 mg PO BID Label Comments: TAKE 2 TABLETS BY MOUTH IN THE MORNING, 1 TABLET WITH LUNCH, AND 2 TABLETS WITH DINNER sitagliptin 100 tablet 100 mg PO DAILY psyllium Packet 1 packet PO BID Rx Instructions: mix into at least 8 oz of water or juice before administering oxybutynin chloride 5 mg tablet extended release 24hr 5 mg PO DAILY Label Comments: TAKE 1 TABLET BY MOUTH EVERY DAY zinc 50 mg Tablet 50 mg PO DAILY carbidopa-levodopa 25-100 mg Tablet 1 tab PO DAILY carbidopa-levodopa 25-100 mg Tablet 1 tab PO QHS Discontinued carbidopa-levodopa 25-100 mg Tablet 0.5 tab PO 1400 Referrals / Follow Up: Jericho Mcnair MD [Primary Care Provider] - Within 1 Week Zaheer Geller NP, HOME HEALTH BILLING SPECIALIST-C [NON-STAFF] - Disposition Disposition (needs filled in before D/C Order can be placed): Home Health Service Charges/Coding Visit Charges OBSV E&M: 79611 Observation care discharge
[2022-02-24 12:11] LABS: Bedside Glucose 367 mg/dL (74-106)
[2022-02-24 17:16] LABS: Bedside Glucose 203 mg/dL (74-106)
== END 2022-02-24 11:31 | disposition home health service (06) ==
LOC: ED 21:49 → PCU 21:56
PROVIDERS: Admitting Provider Internal Medicine; Emergency Provider Emergency Medicine; PCP Family Medicine; Referring Provider Internal Medicine; Visit Provider Family Medicine
DX: I95.1 Orthostatic hypotension (principal); G91.9 Hydrocephalus, unspecified; E11.9 Type 2 diabetes mellitus without complications; Z79.84 Long term (current) use of oral hypoglycemic drugs; R11.2 Nausea with vomiting, unspecified; M19.90 Unspecified osteoarthritis, unspecified site; R26.2 Difficulty in walking, not elsewhere classified; G47.33 Obstructive sleep apnea (adult) (pediatric); F32.A Depression, unspecified; E78.5 Hyperlipidemia, unspecified; G31.84 Mild cognitive impairment of uncertain or unknown etiology; Z98.2 Presence of cerebrospinal fluid drainage device; F41.9 Anxiety disorder, unspecified; Z79.82 Long term (current) use of aspirin; E86.0 Dehydration; Z79.899 Other long term (current) drug therapy
CPT/HCPCS: 36415; 70450; 75809; 80048; 80053; 81001; 82962; 83735; 84100; 84443; 84484; 85025; 93005; 96361; 96372; 96374; 96376; 97110; 97162; 97166; 97530; 97535; 99218; 99251; 99285; J7030; J7120; A4216; G0378; G0463

== ENCOUNTER 2022-07-22 22:09 | Emergency (ER) | payer MEDICARE, OTHER, SELFPAY ==
[2022-07-22 22:10] VITALS: BP 150/82; PULSE 105; RESP 15; TEMP 36.9; O2SAT 94; BMI 30.2
[2022-07-22 22:51] LABS: Absolute Lymphocyte Count 0.47 X10^3/uL (0.83-4.51); Absolute Neutrophil Count 10.4 X10^3/uL (2.0-7.7); Basophil# 0.04 X10^3/uL; Basophil% 0.3 % (0-1); Eosinophil# 0.07 X10^3/uL; Eosinophils% 0.6 % (0-5); Hematocrit 42.1 % (37-47); Hemoglobin 13.6 g/dL (12.0-15.0); Lymphocyte # 0.47 X10^3/ul (0.83-4.51); Lymphocyte % 4.1 % (19-41); Mean Corp Hgb Conc 32.3 g/dL (32-36); Mean Corpuscular Volume 86.8 fL (81-99); Mean Platelet Vol. 10.3 fl (6.2-12.0); Monocyte# 0.55 X10^3/uL; Monocyte% 4.8 % (0-10); NRBC Flagged by Analyzer 0 % (0-5); Neutrophil # 10.37 X10^3/uL (2.7-7.7); Neutrophil % 89.8 % (47-70); POSITIVE DIFFERENTIAL YES; Platelet Count 171 K/mm3 (150-450); RBC Distribution Width CV 13.2 % (11.6-14.6); RBC Distribution Width SD 41.8 fl (35.1-43.9); Red Blood Count 4.85 M/mm3 (4.2-5.4); White Blood Count 11.6 K/mm3 (4.4-11.0)
--- NOTE | 2022-07-22 22:55 | EDS_ITS ---
HPI History of Present Illness Chief Complaint: Nausea/Vomiting/Diarrhea Narrative Narrative: Patient is in the ED 2-year-old female with past medical history of depression hyperlipidemia and diabetes. She has previous NPH with shunt placement as well as past surgical history of appendectomy. She states that last night she developed some loose stool/diarrhea. Today she has had multiple bouts of nausea and vomiting and has not been able to hold anything down when she tries to eat o r drink. Patient and family report that she is becoming weaker and weaker and having difficulty ambulating as she is not been able to take in any type of food or fluid and secondary to this bring her in for evaluation [facility] Medical History Abnormal mammogram of right breast CPAP (continuous positive airway pressure) dependence Depression Diabetes Hyperlipidemia NPH (normal pressure hydrocephalus) Sleep apnea Home Medications aspirin 81 mg tablet,delayed release 81 mg PO DAILY 01/10/19 [History Last Taken Unknown] biotin 10 mg tablet 10 mg PO DAILY 01/10/19 [History Last Taken Unknown] cholecalciferol (vitamin D3) 25 mcg (1,000 unit) capsule 2,000 unit PO DAILY 01/10/19 [History Last Taken Unknown] docusate sodium 100 mg capsule (Colace) 100 mg PO DAILY 01/10/19 [History Last Taken Unknown] glimepiride 4 mg tablet 4 mg PO QAM 01/10/19 [History Last Taken Unknown] glucosamine 750 ig-sghpqkjiumb-vwb no1 625 mg-C 30 mg-farideh 1 mg tablet 1 tab PO DAILY 01/10/19 [History Last Taken Unknown] meloxicam 15 mg tablet (Mobic) 7.5 mg PO DAILY 01/10/19 [History Last Taken Unknown] wyjjfzrotrdx-zwvvkmtg-lqscou tablet 1 tab PO DAILY 01/10/19 [History Last Taken Unknown] sertraline 100 mg tablet (Zoloft) 200 mg PO DAILY depression 01/10/19 [History Last Taken Unknown] simvastatin 40 mg tablet (Zocor) 40 mg PO QHS 01/10/19 [History Last Taken Unknown] metformin 500 mg tablet 1,000 mg PO BID diabetes 10/12/19 [History Last Taken Unknown] sitagliptin phosphate 100 mg tablet 100 mg PO DAILY diabetes 10/12/19 [History Last Taken Unknown] carbidopa 25 mg-levodopa 100 mg tablet 1 tab PO DAILY Check with primary doctor 02/22/22 [History Last Taken Unknown] carbidopa 25 mg-levodopa 100 mg tablet 1 tab PO QHS 02/22/22 [History Last Taken Unknown] oxybutynin chloride 5 mg tablet,extended release 24 hr 5 mg PO DAILY overactive bladder 02/22/22 [History Last Taken Unknown] psyllium 1 packet PO BID constipation 02/22/22 [History Last Taken Unknown] zinc 50 mg tablet 50 mg PO DAILY 02/22/22 [History Last Taken Unknown] ondansetron 4 mg disintegrating tablet 4 mg PO TID PRN nausea and vomiting #21 tabs 07/23/22 [Rx Last Taken Unknown] Allergy/AdvReac Type Severity Reaction Status Date / Time iodine Allergy Mild Hives Verified 07/22/22 22:14 Penicillins Allergy Mild Hives Verified 07/22/22 22:14 Family History Grandmother Breast cancer Surgical History S/P appendectomy S/P breast biopsy Social History household members: other details: Patient lives alone, but always has caregiver and/or daughter present. housing: house number of children: 3 Smoking Status: Never smoker alcohol intake: current alcohol intake frequency: holidays/special occasions only substance use type: does not use what type of physical activity do you participate in: additional details: Ambulates with walker ROS ROS ED Constitutional Constitutional ED: Denies chills or fever(s) ENT ENT ED: Denies sore throat Cardiovascular Cardiovascular: Denies chest pain Respiratory/Chest Respiratory/Chest: Denies cough or dyspnea Gastrointestinal Gastrointestinal: Reports diarrhea, nausea and vomiting; Denies abdominal pain Genitourinary Genitourinary ED: Denies dysuria Musculoskeletal Musculoskeletal: Denies myalgias Integumentary Denies rash Neurologic Neurologic: Reports weakness; Denies headache(s) Hematologic/Lymphatic Hematologic/Lymphatic: Denies easy bleeding or easy bruising EXAM Physical Exam Const Vital Signs: 07/22/22 22:10 07/23/22 00:34 07/23/22 02:39 Temperature 98.4 F Temperature Source Temporal Pulse Rate 105 H 89 79 Respiratory Rate 15 18 18 Blood Pressure 150/82 H 139/70 H 129/77 H Blood Pressure Mean 104 93 94 Pulse Ox 94 92 94 Oxygen Delivery Method Room Air Room Air Room Air Positive well nourished and well developed General Appearance ED: well developed HEENT Reports dry mucous membranes HEENT Narrative: Mucous membranes are dry and tacky Mouth ED: Yes dry mucous membranes Mouth: dry mucous membranes Eyes PERRL and EOMs intact bilaterally Neck supple Resp normal respiratory effort and clear to auscultation bilaterally Cardio regular rate and regular rhythm Rate: other Other Details: Radial pulses are +2-4 bilaterally are equal and symmetric GI non-tender GI Narrative: Abdomen is soft but distended with hypoactive bowel sounds. There is no pain with palpation no voluntary guarding or rigidity. No pulsatile mass or fluid wave noted Auscultation: hypoactive bowel sounds Palpation: soft Extremity normal to inspection Neuro oriented x3 and CN's II-XII intact bilaterally Sensorium / Orientation: alert Psych mental status grossly normal Skin no rashes or lesions noted Skin Narrative: Skin turgor is increased MDM MDM MDM Narrative Medical decision making narrative: Patient presented to the ER afebrile. There is no obvious focal neurologic deficit and the reported weakness seems more generalized in nature consistent with dehydration and infection. Her abdomen is mildly distended and bowel sounds are decreased and with her history of appendectomy years ago I do have concern for possible bowel obstruction. Secondary to his basic labs and a CT scan were obtained. Labs revealed mild leukocytosis but otherwise no clinically significant finding. CT scan shows no signs of acute blockage. After patient was treated with IV fluids and Zofran she had no further bouts of vomiting and was able to tolerate oral fluids without difficulty. She was ambulated in the ER and can ambulate with a steady gait. Therefore at this time as work-up reveals no signs of obstruction acute kidney injury or severe electrolyte derangement and she can now hold down fluids she is otherwise safe for discharge Lab Data Attestation: I reviewed the patient's lab results. Labs: Laboratory Results - last 24 hr 07/22/22 07/22/22 07/22/22 22:43 22:43 23:40 WBC 11.6 H RBC 4.85 Hgb 13.6 Hct 42.1 MCV 86.8 MCH 28.0 MCHC 32.3 RDW Std Deviation 41.8 RDW Coeff of Danika 13.2 Plt Count 171 MPV 10.3 Immature Gran % (Auto) 0.400 Neut % (Auto) 89.8 H Lymph % (Auto) 4.1 L [place] % (Auto) 4.8 Eos % (Auto) 0.6 Baso % (Auto) 0.3 Absolute Neuts (auto) 10.4 H Absolute Lymphs (auto) 0.47 L Nucleated RBC % 0 Sodium Cancelled 134 L Potassium Cancelled 4.9 Chloride Cancelled 100 Carbon Dioxide Cancelled 25.0 Anion Gap Cancelled 9 BUN Cancelled 19 H Creatinine Cancelled 0.98 Estim Creat Clear Calc Cancelled 31.79 Est GFR (MDRD) Af Amer Cancelled 69 Est GFR (MDRD) Non-Af Cancelled 57 L BUN/Creatinine Ratio Cancelled 19.3 Glucose Cancelled 231 H Calcium Cancelled 9.1 Magnesium 2.1 Total Bilirubin 0.40 Direct Bilirubin 0.08 AST 48 H ALT 40 Alkaline Phosphatase 62 Total Protein 7.2 Albumin 3.7 Globulin 3.5 Lipase 80 Urine Color Urine Clarity Urine pH Ur Specific Lindsay Urine Protein Urine Glucose (UA) Urine Ketones Urine Occult Blood Urine Nitrite Urine Bilirubin Urine Urobilinogen Ur Leukocyte Esterase Urine RBC Urine WBC Ur Squamous Epith Cells Urine Bacteria Urine Mucus 07/23/22 00:30 WBC RBC Hgb Hct MCV MCH MCHC RDW Std Deviation RDW Coeff of Danika Plt Count MPV Immature Gran % (Auto) Neut % (Auto) Lymph % (Auto) [place] % (Auto) Eos % (Auto) Baso % (Auto) Absolute Neuts (auto) Absolute Lymphs (auto) Nucleated RBC % Sodium Potassium Chloride Carbon Dioxide Anion Gap BUN Creatinine Estim Creat Clear Calc Est GFR (MDRD) Af Amer Est GFR (MDRD) Non-Af BUN/Creatinine Ratio Glucose Calcium Magnesium Total Bilirubin Direct Bilirubin AST ALT Alkaline Phosphatase Total Protein Albumin Globulin Lipase Urine Color Yellow Urine Clarity Clear Urine pH 7.0 Ur Specific Lindsay 1.015 Urine Protein 30 H Urine Glucose (UA) 1000 H Urine Ketones 150 A* Urine Occult Blood Negative Urine Nitrite Negative Urine Bilirubin Negative Urine Urobilinogen Normal Ur Leukocyte Esterase Negative Urine RBC 0-5 SEEN Urine WBC 0 SEEN Ur Squamous Epith Cells 0-5 SEEN Urine Bacteria RARE Urine Mucus 0 SEEN Radiography Diagnostic Testing: Clinical Impression(s) from Imaging Studies Shuntogram 07/22/22 23:15 IMPRESSION: Normal shuntogram. Electronically Signed: David Valencia MD at 0:02 EST , Abdomen CT 07/23/22 22:52 IMPRESSION: No bowel obstruction or other acute abnormalities identified. Electronically Signed: David Valecnia MD at 1:50 EST , Shuntogram x-ray as interpreted by the emergency medicine physician reveals a normal shunt without signs of obstruction Discharge Plan Triage Chief Complaint: Nausea/Vomiting/Diarrhea ED Provider: Mitchell Morton Dx/Rx/DC Orders Clinical Impression: Nausea vomiting and diarrhea, Dehydration, Diabetes Instructions: ED Dehydration (Adult), ED Gastroenteritis, Viral (Adult) Prescriptions: New ondansetron 4 mg tablet,disintegrating 4 mg PO TID PRN (Reason: nausea and vomiting) Qty: 21 0RF No Action aspirin 81 mg tablet,delayed release (DR/EC) 81 mg PO DAILY glimepiride 4 mg tablet 4 mg PO QAM cholecalciferol (vitamin D3) 1,000 unit capsule 1,000 unit capsule 2,000 unit PO DAILY simvastatin [Zocor] 40 mg tablet 40 mg PO QHS wursgiezxeqg-vkmusely-dgzkev tablet 1 tab PO DAILY biotin 10 mg tablet 10 mg PO DAILY dqjvfydt-rdmen-lry6-C-farideh-bor [id number] mg tablet 1 tab PO DAILY meloxicam [Mobic] 15 mg tablet 7.5 mg PO DAILY docusate sodium [Colace] 100 mg capsule 100 mg PO DAILY sertraline [Zoloft] 100 mg tablet 200 mg PO DAILY metformin 500 MG tablet 1,000 mg PO BID Label Comments: TAKE 2 TABLETS BY MOUTH IN THE MORNING, 1 TABLET WITH LUNCH, AND 2 TABLETS WITH DINNER sitagliptin phosphate 100 tablet 100 mg PO DAILY psyllium Packet 1 packet PO BID Rx Instructions: mix into at least 8 oz of water or juice before administering oxybutynin chloride 5 mg tablet extended release 24hr 5 mg PO DAILY Label Comments: TAKE 1 TABLET BY MOUTH EVERY DAY zinc 50 mg Tablet 50 mg PO DAILY carbidopa-levodopa 25-100 mg Tablet 1 tab PO DAILY carbidopa-levodopa 25-100 mg Tablet 1 tab PO QHS Primary Care Provider: Jericho Mcnair Referrals: Jericho Mcnair MD [Primary Care Provider] - Activity Restrictions/Additional Instructions: Your work-up today shows changes consistent with dehydration but the CAT scan did not reveal any type of bowel obstruction or severe intestinal infection. Your symptoms are associated with a viral stomach infection which will typically last 3 to 7 days. Use the Zofran as directed to control nausea and vomiting and keep yourself well-hydrated. If he had any further concerns return to the ER for repeat evaluation Disposition Disposition: Home, Self Care Discharge Date/Time: 07/23/22 03:13
[2022-07-22 22:57] LABS: Differential Indicated SCAN CRITERIA MET
[2022-07-22] MEDS: Ondansetron 4 MG/2 ML Vial IV (23:03)
[2022-07-22] MEDS: 0.9% Normal Saline 1,000 ML 999 ML IV (23:03)
--- NOTE | 2022-07-22 23:15 | RAD_ITS ---
EXAM: XR Shuntogram CLINICAL INDICATION: weakness TECHNIQUE: 3 images of the head, neck, chest and abdomen.. This report was created using [employer] report generation technology. COMPARISON: None. FINDINGS: The ventricular shunt catheter is intact, with the distal end coiled in the left side of the abdomen. RAD/Shuntogram/Prev Placed Shunt IMPRESSION: Normal shuntogram. Electronically Signed: David Valencia MD at 0:02 EST ,
[2022-07-23 00:01] LABS: AST(SGOT) 48 U/L (15-37); Alanine Aminotransfer ALT/SGPT 40 U/L (13-56); Albumin, Serum 3.7 g/dL (3.2-5.0); Alkaline Phosphatase 62 U/L (45-117); Anion Gap 9 (5-15); BUN 19 mg/dL (7-18); BUN/Creat Ratio 19.3 RATIO (10-20); Bilirubin, Direct 0.08 mg/dL (0.00-0.30); Calcium,Total 9.1 mg/dL (8.5-10.1); Chloride 100 mmol/L (98-107); Creatinine, Serum 0.98 mg/dL (0.55-1.02); EST Glomerular Filtration Rate 57 mL/min (>60); Est Glom Filt Rate - Afr Amer 69 mL/min (>60); Estimated Creatinine Clearance 31.79 ml/min; Globulin 3.5 g/dL (2.2-4.2); Glucose 231 mg/dL (74-106); Lipase 80 U/L (73-393); Magnesium 2.1 mg/dL (1.6-2.6); Potassium 4.9 mmol/L (3.5-5.1); Protein, Total 7.2 g/dL (6.4-8.2); Sodium Level 134 mmol/L (136-145)
[2022-07-23 00:34] VITALS: BP 139/70; PULSE 89; RESP 18; O2SAT 92
[2022-07-23 00:35] LABS: Mucous, Urine 0 SEEN /hpf (<or=2+); White Blood Cells 0 SEEN /hpf (0-5)
[2022-07-23 00:36] LABS: Color, Urine Yellow (Yellow); Glucose, Dipstick 1000 mg/dl (Normal); Leukocyte Esterase-Dipstick Negative /ul (Negative); Nitrite-Dipstick Negative (Negative); Occult Blood-Urine Negative /ul (Negative); Protein-Dipstick 30 mg/dl (Negative); Specific Gravity, Urine 1.015 (1.002-1.030); Urine Bilirubin Dipstick Negative (Negative); Urine Clarity Clear (Clear); Urine Urobilinogen Normal (Normal)
[2022-07-23 00:37] LABS: Ketone-Dipstick 150 mg/dl (Negative)
[2022-07-23 00:41] LABS: Bacteria RARE /hpf (None Seen); Red Blood Cells-Urine 0-5 SEEN /hpf (0-5); Squamous Epithelial Cells - UA 0-5 SEEN /hpf (5-10)
[2022-07-23 02:39] VITALS: BP 129/77; PULSE 79; RESP 18; O2SAT 94
--- NOTE | 2022-07-23 22:52 | CT_ITS ---
EXAM: CT ABDOMEN AND PELVIS WITHOUT INTRAVENOUS CONTRAST CLINICAL INDICATION: SBO TECHNIQUE: Helically acquired images were obtained of the abdomen and pelvis without intravenous contrast. This CT exam was performed using one or more of the following dose reduction techniques: automated exposure control, adjustment of the mA and/or kV according to patient size, and/or use of iterative reconstruction technique. This report was created using [employer] report generation technology. CONTRAST: Oral Gastrografin COMPARISON: None. FINDINGS: LOWER THORAX: Unremarkable. Lung bases are clear. No cardiomegaly. No significant pericardial effusion. ABDOMEN: LIVER: Small simple cyst in the right hepatic lobe, no follow-up required. GALLBLADDER AND BILE DUCTS: Unremarkable. No calcified gallstones. No gallbladder distention or wall edema. No intra- or extrahepatic biliary ductal dilation. PANCREAS: Unremarkable. No focal cystic mass. SPLEEN: Unremarkable. Normal size without focal cystic or solid mass. ADRENALS: Unremarkable. No nodules. KIDNEYS AND URETERS: No urinary stone or renal obstruction. Normal renal size and position. STOMACH AND BOWEL: Unremarkable. No stomach or bowel distention. No focal inflammatory change. PELVIS: APPENDIX: No evidence of acute appendicitis. BLADDER: Unremarkable. REPRODUCTIVE: Unremarkable as visualized. No mass. ABDOMEN and PELVIS: INTRAPERITONEAL SPACE: Unremarkable. No ascites or other fluid collection. No free air. BONES/JOINTS: Right hip arthroplasty. No suspicious lytic or blastic abnormality. SOFT TISSUES: Unremarkable. No discrete abdominal or pelvic wall hernia. VASCULATURE: Moderate atherosclerotic changes of the abdominal aorta without aneurysm. LYMPH NODES: Unremarkable. No enlarged lymph nodes. TUBES, LINES AND DEVICES: [employer] shunt extending into the left abdomen. CT/Abdomen/Pel W ORAL Cont Only IMPRESSION: No bowel obstruction or other acute abnormalities identified. Electronically Signed: David Valencia MD at 1:50 EST ,
== END 2022-07-23 03:13 | disposition home or self-care (01) ==
PROVIDERS: Emergency Provider Emergency Medicine; PCP Family Medicine; Visit Provider Emergency Medicine
DX: R11.2 Nausea with vomiting, unspecified (principal); E11.9 Type 2 diabetes mellitus without complications; R14.0 Abdominal distension (gaseous); E86.0 Dehydration; Z60.2 Problems related to living alone; E78.5 Hyperlipidemia, unspecified; R19.7 Diarrhea, unspecified; F32.9 Major depressive disorder, single episode, unspecified; G47.30 Sleep apnea, unspecified; Z99.89 Dependence on other enabling machines and devices
CPT/HCPCS: 74176; 75809; 80048; 80076; 81001; 83690; 83735; 85025; 96361; 96374; 99283; J7030; A4216; J2405

== ENCOUNTER → 2023-05-05 | Outpatient (REF) | payer MEDICARE, OTHER, SELFPAY ==
[2023-05-05 08:42] LABS: Absolute Lymphocyte Count 2.66 X10^3/uL (0.83-4.51); Absolute Neutrophil Count 4.8 X10^3/uL (2.0-7.7); Basophil# 0.05 X10^3/uL; Basophil% 0.6 % (0-1); Eosinophil# 0.21 X10^3/uL; Eosinophils% 2.5 % (0-5); Hematocrit 38.4 % (37-47); Hemoglobin 12.1 g/dL (12.0-15.0); Lymphocyte # 2.66 X10^3/ul (0.83-4.51); Lymphocyte % 31.7 % (19-41); Mean Corp Hgb Conc 31.5 g/dL (32-36); Mean Corpuscular Hgb 28.1 pg (27.0-32.0); Mean Corpuscular Volume 89.3 fL (81-99); Mean Platelet Vol. 10.8 fl (6.2-12.0); Monocyte# 0.62 X10^3/uL; Monocyte% 7.4 % (0-10); NRBC Flagged by Analyzer 0 % (0-5); Neutrophil # 4.81 X10^3/uL (2.7-7.7); Neutrophil % 57.4 % (47-70); Platelet Count 182 K/mm3 (150-450); RBC Distribution Width SD 42.4 fl (35.1-43.9); White Blood Count 8.4 K/mm3 (4.4-11.0)
[2023-05-05 08:52] LABS: Vitamin D,25 Hydroxy 95.3 ng/mL
[2023-05-05 08:56] LABS: ALB/GLOB Ratio 1.3 RATIO (0.9-2.4); AST(SGOT) 16 U/L (15-37); Alanine Aminotransfer ALT/SGPT 21 U/L (13-56); Albumin, Serum 3.6 g/dL (3.2-5.0); Alkaline Phosphatase 63 U/L (45-117); Anion Gap 6 (5-15); BUN 23 mg/dL (7-18); BUN/Creat Ratio 21.9 RATIO (10-20); Calcium,Total 9.2 mg/dL (8.5-10.1); Chloride 102 mmol/L (98-107); Cholesterol 130 mg/dL (200); Creatinine, Serum 1.05 mg/dL (0.55-1.02); EST Glomerular Filtration Rate 53 mL/min (>60); Est Glom Filt Rate - Afr Amer 64 mL/min (>60); Globulin 2.8 g/dL (2.2-4.2); Glucose 155 mg/dL (74-106); High Density Lipoprotein 57 mg/dL; Protein, Total 6.4 g/dL (6.4-8.2); Sodium Level 137 mmol/L (136-145); Triglycerides 124 mg/dL; Very Low Density Lipoprotein 25 mg/dL (5-40)
[2023-05-05 09:10] LABS: Hemoglobin A1c 7.8 % (3.8-5.6)
[2023-05-06 05:06] LABS: T4 Free Direct 0.79 ng/dL (0.76-1.46); Thyroid Stim Hormone (TSH) 2.94 uIU/mL (0.358-3.74)
== END ==
LOC: OLS.WHLTSB 05:00
PROVIDERS: PCP Family Medicine; Visit Provider Internal Medicine
DX: E11.9 Type 2 diabetes mellitus without complications (principal); F02.80 Dementia in other diseases classified elsewhere, unspecified severity, without behavioral disturbance, psychotic disturbance, mood disturbance, and anxiety; E55.9 Vitamin D deficiency, unspecified; M25.9 Joint disorder, unspecified; K59.09 Other constipation; Z79.899 Other long term (current) drug therapy
CPT/HCPCS: 36415; 80053; 80061; 82306; 83036; 84439; 84443; 85025

== ENCOUNTER → 2023-06-12 | Outpatient (REF) | payer MEDICARE, OTHER, SELFPAY ==
[2023-06-12 09:25] LABS: Absolute Lymphocyte Count 2.27 X10^3/uL (0.83-4.51); Absolute Neutrophil Count 4.5 X10^3/uL (2.0-7.7); Basophil# 0.05 X10^3/uL; Basophil% 0.7 % (0-1); Eosinophil# 0.14 X10^3/uL; Eosinophils% 1.8 % (0-5); Hematocrit 39.4 % (37-47); Hemoglobin 12.5 g/dL (12.0-15.0); Lymphocyte # 2.27 X10^3/ul (0.83-4.51); Mean Corp Hgb Conc 31.7 g/dL (32-36); Mean Corpuscular Volume 88.3 fL (81-99); Mean Platelet Vol. 10.6 fl (6.2-12.0); Monocyte# 0.63 X10^3/uL; Monocyte% 8.3 % (0-10); NRBC Flagged by Analyzer 0 % (0-5); Neutrophil # 4.45 X10^3/uL (2.7-7.7); Neutrophil % 58.8 % (47-70); Platelet Count 191 K/mm3 (150-450); RBC Distribution Width CV 13.1 % (11.6-14.6); RBC Distribution Width SD 42.2 fl (35.1-43.9); Red Blood Count 4.46 M/mm3 (4.2-5.4); White Blood Count 7.6 K/mm3 (4.4-11.0)
[2023-06-12 09:42] LABS: ALB/GLOB Ratio 1.1 RATIO (0.9-2.4); AST(SGOT) 16 U/L (15-37); Alanine Aminotransfer ALT/SGPT 25 U/L (13-56); Albumin, Serum 3.4 g/dL (3.2-5.0); Alkaline Phosphatase 80 U/L (45-117); Anion Gap 5 (5-15); BUN 16 mg/dL (7-18); BUN/Creat Ratio 15.5 RATIO (10-20); Calcium,Total 9.3 mg/dL (8.5-10.1); Chloride 104 mmol/L (98-107); Creatinine, Serum 1.03 mg/dL (0.55-1.02); EST Glomerular Filtration Rate 54 mL/min (>60); Est Glom Filt Rate - Afr Amer 66 mL/min (>60); Glucose 177 mg/dL (74-106); Potassium 4.3 mmol/L (3.5-5.1); Protein, Total 6.4 g/dL (6.4-8.2); Sodium Level 137 mmol/L (136-145); Thyroid Stim Hormone (TSH) 2.97 uIU/mL (0.358-3.74)
== END ==
LOC: OLS.WHLTSB 05:00
PROVIDERS: PCP Family Medicine; Visit Provider Internal Medicine
DX: R53.83 Other fatigue (principal); F02.80 Dementia in other diseases classified elsewhere, unspecified severity, without behavioral disturbance, psychotic disturbance, mood disturbance, and anxiety
CPT/HCPCS: 36415; 80053; 84443; 85025

== ENCOUNTER → 2023-08-04 | Outpatient (REF) | payer MEDICARE, OTHER, SELFPAY ==
[2023-08-04 09:29] LABS: Absolute Lymphocyte Count 2.17 X10^3/uL (0.83-4.51); Absolute Neutrophil Count 4.7 X10^3/uL (2.0-7.7); Basophil# 0.05 X10^3/uL; Basophil% 0.7 % (0-1); Eosinophil# 0.12 X10^3/uL; Eosinophils% 1.6 % (0-5); Hematocrit 39.8 % (37-47); Hemoglobin 12.9 g/dL (12.0-15.0); Lymphocyte # 2.17 X10^3/ul (0.83-4.51); Lymphocyte % 28.3 % (19-41); Mean Corp Hgb Conc 32.4 g/dL (32-36); Mean Corpuscular Hgb 28.5 pg (27.0-32.0); Mean Corpuscular Volume 88.1 fL (81-99); Mean Platelet Vol. 10.4 fl (6.2-12.0); Monocyte# 0.65 X10^3/uL; Monocyte% 8.5 % (0-10); NRBC Flagged by Analyzer 0 % (0-5); Neutrophil # 4.67 X10^3/uL (2.7-7.7); Neutrophil % 60.6 % (47-70); Platelet Count 203 K/mm3 (150-450); RBC Distribution Width CV 12.8 % (11.6-14.6); RBC Distribution Width SD 41.7 fl (35.1-43.9); Red Blood Count 4.52 M/mm3 (4.2-5.4); White Blood Count 7.7 K/mm3 (4.4-11.0)
[2023-08-04 10:10] LABS: ALB/GLOB Ratio 1.2 RATIO (0.9-2.4); AST(SGOT) 15 U/L (15-37); Alanine Aminotransfer ALT/SGPT 18 U/L (13-56); Albumin, Serum 3.5 g/dL (3.2-5.0); Alkaline Phosphatase 55 U/L (45-117); Anion Gap 7 (5-15); BUN 13 mg/dL (7-18); BUN/Creat Ratio 13.1 RATIO (10-20); Calcium,Total 9.7 mg/dL (8.5-10.1); Chloride 101 mmol/L (98-107); Cholesterol 117 mg/dL (200); Creatinine, Serum 0.99 mg/dL (0.55-1.02); EST Glomerular Filtration Rate 57 mL/min (>60); Est Glom Filt Rate - Afr Amer 69 mL/min (>60); Glucose 96 mg/dL (74-106); High Density Lipoprotein 44 mg/dL; Potassium 3.7 mmol/L (3.5-5.1); Protein, Total 6.5 g/dL (6.4-8.2); Sodium Level 136 mmol/L (136-145); Triglycerides 179 mg/dL; Very Low Density Lipoprotein 36 mg/dL (5-40)
[2023-08-04 10:49] LABS: Hemoglobin A1c 7.2 % (3.8-5.6)
== END ==
LOC: OLS.WHLTSB 05:00
PROVIDERS: PCP Family Medicine; Visit Provider Internal Medicine
DX: E11.9 Type 2 diabetes mellitus without complications (principal); F02.80 Dementia in other diseases classified elsewhere, unspecified severity, without behavioral disturbance, psychotic disturbance, mood disturbance, and anxiety; K59.09 Other constipation; M25.9 Joint disorder, unspecified
CPT/HCPCS: 36415; 80053; 80061; 83036; 85025

== ENCOUNTER → 2023-09-16 | Outpatient (REF) | payer MEDICARE, OTHER, SELFPAY ==
--- OUTSIDE RECORDS SUMMARY | 2023-09-16 03:59 | XMS RPT_ITS | CCD ---
Author Name Unknown Address [id number] [place] [address] Organization [facility] Care Team Providers Care Postal Inspector Name Role Phone Harsh Mcnair MD Primary Care Provider [phone] HARSH MCNAIR Primary Care Unavailable CRISTINE VEGA Referring Unavailable HARSH MCNAIR Primary Care Unavailable HARSH MCNAIR Referring Unavailable HARSH MCNAIR Primary Care Unavailable KENNETH PARK JR Attending Unavaila ble HARSH MCNAIR Referring Unavailable HARSH MCNAIR Attending Unavailable HARSH MCNAIR Primary Care Unavailable DAGMAR, RAMÍREZ Referring Unavailable HARSH MCNAIR Primary Care Unavailable RAMÍREZ LEAVITT Attending Unavailable YAIMA LEAVITTEB Referring Unavailable HARSH MCNAIR Primary Care Unavailable HARSH MCNAIR Primary Care Unavailable JOSE PORTER Attending Unavailable MARCELO MANCINI Attending Unavailable HARSH MCNAIR Primary Care Unavailable ELDERHARSH GRUBBS Primary Care Unavailable LAQUITA COULTER Attending Unavailable HARSH MCNAIR Primary Care Unavailable HARSH MCNAIR Referring Unavailable HARSH MCNAIR Primary Care Unavailable VANESSA AGARWAL Attending Unavail able MARCELO MANCINI Attending Unavailable HARSH MCNAIR Primary Care Unavailable HARSH MCNAIR Primary Care Unavailable CRISTINE VEGA Attending Unavailable HARSH MCNAIR Referring Unavailable HARSH MCNAIR Primary Care Unavailable HARSH MCNAIR Attending Unavailable HARSH MCNAIR Primary Care Unavailable JOSE PORTER Referring Unavailable HARSH MCNAIR Primary Care Unavailable HARSH MCNAIR Referring Unavailable HARSH MCNAIR Primary Care Unavailable JOSE PORTER Referring Unavailable BRIANNE WADE Attending Unavailable Allergies Allergy Classification Reported Allergen(s) Allergy Type Date of Onset Reaction(s) Facility (20 sources) Iodine; Translations: [IODINE] Drug Allergy 04-30-2005 Intolerance [facility] Work Phone: (11 sources) Penicillins; Translations: [PENICILLINS] Propensity to adverse reactions to drug 03-03-2006 Anaphylaxis [facility] (20 sources) Penicillins Propensity to adverse reactions to drug 03-03-2006 Anaphylaxis [facility] Medications Current Medications Medication Drug Class(es) Dates Sig (Normalized) Sig (Original) 24 hr mirabegron 25 mg extended release oral tablet (2 sources) beta3-Adrenergic Agonist Start: 10-01-2022 End: 10-03-2022 take 1 tablet by mouth once daily mirabegron (MYRBETRIQ) 25 mg Tb24 Indications: Female stress incontinence Take 1 tablet by mouth once daily. 30 tablet 5 10/01/2022 10/03/2022 Discontinued Completed/Discontinued Medications Medication Drug Class(es) Dates Sig (Normalized) Sig (Original) acetaminophen 325 mg oral tablet (20 sources) Start: 02-16-2020 take 2 tablets by mouth every four hours as needed acetaminophen (TYLENOL) 325 mg tablet Take 2 tablets by mouth every 4 hours as needed. 0 02/16/2020 Active Problems Active Problems Problem Classification Problem Date Documented Date Episodic/Chronic Delirium, dementia, and amnestic and other cognitive disorders (7 sources) Neurocognitive disorder; Translations: [Unspecified dementia without behavioral disturbance] Onset: 05-21-20 Chronic Diabetes mellitus without complication (20 sources) Type 2 diabetes mellitus without complication; Translations: [Type 2 diabetes mellitus without complications] Onset: 08-18-20 05 02-16-2020 Chronic Disorders of lipid metabolism (20 sources) Hyperlipidemia; Translations: [Hyperlipidemia, unspecified] Onset: 08-03-20 06 02-16-2020 Chronic E Codes: Adverse effects of medical drugs (1 source) Adverse reaction to drug; Translations: [Adverse effect of unspecified drugs, medicaments and biological substances, initial encounter] Episodic Essential hypertension (20 sources) Benign essential hypertension; Translations: [Essential (primary) hypertension] Onset: 07-23-20 10 07-23-2010 Chronic Fluid and electrolyte disorders (1 source) Dehydration; Translations: [Dehydration] Episodic Genitourinary symptoms and ill-defined conditions (20 sources) Female stress incontinence; Translations: [Stress incontinence (female) (male)] Onset: 08-21-20 08 08-21-2008 Chronic Menopausal disorders (20 sources) Atrophic vaginitis; Translations: [Postmenopausal atrophic vaginitis] Onset: 08-21-20 08 08-21-2008 Chronic Mood disorders (20 sources) Depressive disorder; Translations: [Depressive disorder] Onset: 08-22-20 09 Chronic Nausea and vomiting (1 source) Nausea and vomiting; Translations: [Nausea with vomiting, unspecified] Episodic Nonmalignant breast conditions (20 sources) Fibrocystic disease of breast; Translations: [Diffuse cystic mastopathy of unspecified breast] Onset: 12-23-19 06 12-22-2005 Chronic Other aftercare (1 source) Post-discharge follow-up; Translations: [Encounter for follow-up examination after completed treatment for conditions other than malignant neoplasm] Episodic Other gastrointestinal disorders (1 source) Chronic constipation; Translations: [Other constipation] 04-16-2023 Episodic Other gastrointestinal disorders (1 source) Other constipation; Translations: [Chronic constipation] Onset: 04-17-20 Episodic Other hereditary and degenerative nervous system conditions (20 sources) System disorder of the nervous system; 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] Onset: 03-03-20 06 03-03-2006 Chronic Other nervous system disorders (20 sources) Vascular parkinsonism; 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] Onset: 01-21-20 22 Chronic Other nervous system disorders (20 sources) Normal pressure hydrocephalus; Translations: [(Idiopathic) normal pressure hydrocephalus] Onset: 02-14-20 20 04-13-2020 Chronic Other nervous system disorders (4 sources) Hydrocephalus; Translations: [Other hydrocephalus] Chronic Other nervous system disorders (1 source) Ventriculoperitoneal shunt in situ; Translations: [Presence of cerebrospinal fluid drainage device] Chronic Other nervous system disorders (1 source) Other hydrocephalus; Translations: [Other hydrocephalus (HCC)] Onset: 02-06-20 Chronic Other nervous system disorders (2 sources) Numbness of hand; Translations: [Anesthesia of skin] Episodic Other nervous system disorders (1 source) Impairment of balance; Translations: [Other abnormalities of gait and mobility] 04-17-2023 Episodic Other nutritional; endocrine; and metabolic disorders (20 sources) Obese class I; Translations: [Obesity, unspecified] Onset: 04-13-20 20 04-13-2020 Chronic Other screening for suspected conditions (not mental disorders or infectious disease) (1 source) Patient encounter status; Translations: [Encounter for screening for osteoporosis] Episodic Prolapse of female genital organs (20 sources) Midline cystocele; Translations: [Cystocele, midline] Onset: 08-21-20 08 08-21-2008 Chronic Residual codes; unclassified (1 source) Memory impairment; Translations: [Other amnesia] Episodic Spondylosis; intervertebral disc disorders; other back problems (20 sources) Cervical spondylosis; Translations: [Spondylosis without myelopathy or radiculopathy, cervical region] Onset: 06-17-20 19 06-17-2019 Chronic Spondylosis; intervertebral disc disorders; other back problems (20 sources) Stenosis of intervertebral foramina; Translations: [Spinal stenosis, cervical region] 06-17-2019 Episodic Past or Other Problems Problem Classification Problem Date Documented Da te Episodic/Chronic Genitourinary symptoms and ill-defined conditions (2 sources) Retention of urine; Translations: [Retention of urine, unspecified] Onset: 01-09-2023 Episodic Results Test Name Value Interpretation Reference Range Facil ity Vital Signs Date Time Vital Sign Value Performing Clinician Faci lity 04-17-2023 13:12-0400 Diastolic blood pressure 76 mm[Hg] Laquita Coulter APRN.CNP Work Phone: [facility] 04-17-2023 13:12-0400 Heart rate 78 /min Laquita Coulter APRN.COMMERCIAL STRIPPER Work Phone: [facility] 04-17-2023 13:12-0400 Respiratory rate 16 /min Laquita Coulter APRN.CNP Work Phone: [facility] 04-17-2023 13:12-0400 SaO2% (BldA) [Mass fraction] 97 % Laquita Coulter APRN.CNP Work Phone: [facility] 04-17-2023 13:12-0400 Systolic blood pressure 140 mm[Hg] Laquita Coulter APRN.CNP Work Phone: [facility] 02-05-2023 14:50-0400 Body height 152.4 cm Ramírez Schwieterman PA-C Work Phone: [facility] 02-05-2023 14:50-0400 Body weight 80.74 kg Ramírez Schwieterman PA-C Work Phone: [facility] 02-05-2023 14:50-0400 Diastolic blood pressure 57 mm[Hg] Ramírez Schwieterman PA-C Work Phone: [facility] 02-05-2023 14:50-0400 Heart rate 83 /min Ramírez Schwieterman PA-C Work Phone: [facility] 02-05-2023 14:50-0400 SaO2% (BldA) [Mass fraction] 98 % Ramírez Schwieterman PA-C Work Phone: [facility] 02-05-2023 14:50-0400 Systolic blood pressure 129 mm[Hg] Ramírez Schwieterman PA-C Work Phone: [facility] 08-06-2022 11:25-0500 Body height 151.1 cm Vanessa Frye MD Work Phone: [facility] 08-06-2022 11:25-0500 Body weight 79.06 kg Vanessa Frye MD Work Phone: [facility] 08-06-2022 11:25-0500 Diastolic blood pressure 80 mm[Hg] Vanesas Frye MD Work Phone: [facility] 08-06-2022 11:25-0500 Systolic blood pressure 118 mm[Hg] Vanessa Frye MD Work Phone: [facility] 07-30-2022 14:18-0500 Body weight 78.47 kg Harsh Mcnair MD Work Phone: [facility] 07-30-2022 14:18-0500 Diastolic blood pressure 76 mm[Hg] Harsh Mcnair MD Work Phone: [facility] 07-30-2022 14:18-0500 Heart rate 74 /min Harsh Mcnair MD Work Phone: [facility] 07-30-2022 14:18-0500 Respiratory rate 16 /min Harsh Mcnair MD Work Phone: [facility] 07-30-2022 14:18-0500 Systolic blood pressure 124 mm[Hg] Harsh Mcnair MD Work Phone: [facility] 03-06-2022 09:39-0400 Body height 152.4 cm Ramírez Schwieterman PA-C Work Phone: [facility] 03-06-2022 09:39-0400 Body weight 77.56 kg Ramírez Schwieterman PA-C Work Phone: [facility] 03-06-2022 09:39-0400 Diastolic blood pressure 56 mm[Hg] Ramírez Schwieterman PA-C Work Phone: [facility] 03-06-2022 09:39-0400 Heart rate 89 /min Ramírez Schwieterman PA-C Work Phone: [facility] 03-06-2022 09:39-0400 SaO2% (BldA) [Mass fraction] 95 % Ramírez Schwieterman PA-C Work Phone: [facility] 03-06-2022 09:39-0400 Systolic blood pressure 124 mm[Hg] Ramírez Schwieterman PA-C Work Phone: [facility] 03-03-2022 14:29-0400 Diastolic blood pressure 64 mm[Hg] Harsh Mcnair MD Work Phone: [facility] 03-03-2022 14:29-0400 Heart rate 84 /min Harsh Mcnair MD Work Phone: [facility] 03-03-2022 14:29-0400 Respiratory rate 16 /min Harsh Mcnair MD Work Phone: [facility] 03-03-2022 14:29-0400 Systolic blood pressure 120 mm[Hg] Harsh Mcnair MD Work Phone: [facility] 01-22-2022 12:08-0400 Body weight 78.38 kg Harsh Mcnair MD Work Phone: [facility] 01-22-2022 12:08-0400 Diastolic blood pressure 82 mm[Hg] Harsh Mcnair MD Work Phone: [facility] 01-22-2022 12:08-0400 Heart rate 78 /min Harsh Mcnair MD Work Phone: [facility] 01-22-2022 12:08-0400 Respiratory rate 16 /min Harsh Mcnair MD Work Phone: [facility] 01-22-2022 12:08-0400 Systolic blood pressure 126 mm[Hg] Harsh Mcnair MD Work Phone: [facility] Encounters Encounter Date Encounter Type Care Provider Facility Start: 05-05-2023 Telephone encounter Harsh patel MD Work Phone: [facility] [place] Procedures Date Procedure Procedure Detail Performing Clinician Start: 02-05-2023 Ct head/brain w/o contrast material Ramírez Leavitt PA-C Work Phone: Start: 01-07-2023 Urnls dip stick/tabl et rgnt auto w/o microscopy Cristine Vega EXTERIOR INTERIOR SPECIALIST.COMMERCIAL STRIPPER Work Phone: Start: 06-07-2022 INFLUENZA SEASONAL QUADRIVALENT HIGH DOSE AGE 65+ Mitchell Ralph DO Work Phone: H/O: surgery S/P CONDUCTOR SYMPHONIC ORCHESTRA shunt David Dorsey MD Work Phone: Plan of Treatment Date Care Activity Detail Author Start: 04-15-2029 Urine microalbumin profile DTAP,TDAP,TD (4 - Td or Tdap) [facility] Start: 01-22-2024 Hepatitis B surface antibody level LDL CHOLESTEROL [facility] Start: 07-24-2023 Hemoglobin A1c/Hemoglobin.total in Blood HBA1C [facility] Start: 07-16-2023 Hepatitis B surface antibody level LDL CHOLESTEROL [facility] Start: 05-08-2023 Influenza vaccination INFLUENZA (#1) [facility] Start: 01-27-2023 End: 03-29-2023 ALBUMIN/CREAT RATIO RND UR ALBUMIN/CREAT RATIO RND UR Lab Routine Controlled type 2 diabetes mellitus without complication, without long-term current use of insulin (HCC) Expected: 01/27/2023 (Approximate), Expires: 03/29/2023 [facility] Work Phone: Immunizations Immunization Date Immunization Notes Care Provider Fa tee 06-07-2022 influenza, high-dose , quadrivalent vaccine (FLUZONE HIGH DOSE QUADRIVALENT) Immunization [place] Work Phone: [facility] Work Phone: 07-20-2021 COVID-19 vaccine, ag e 12+ yr (XL Group - PURPLE TOP) Harsh Mcnair MD Work Phone: [facility] 05-11-2021 influenza, high dose seasonal, preservative-free Harsh Mcnair MD Work Phone: [facility] 12-30-2020 zoster vaccine recombinant Harsh Mcnair MD Work Phone: [facility] Work Phone: 07-24-2020 zoster vaccine recombinant Harsh Mcnair MD Work Phone: [facility] Work Phone: 05-19-2020 influenza, high-dose , quadrivalent vaccine (FLUZONE HIGH DOSE QUADRIVALENT) Harsh Mcnair MD Work Phone: [facility] 05-27-2019 influenza, high dose seasonal, preservative-free Harsh Mcnair MD Work Phone: [facility] Work Phone: 04-15-2019 tetanus toxoid, redu deins diphtheria toxoid, and acellular pertussis vaccine, adsorbed Harsh Mcnair MD Work Phone: [facility] 05-14-2018 influenza, high dose seasonal, preservative-free Harsh Mcnair MD Work Phone: [facility] Work Phone: 06-07-2017 influenza, high dose seasonal, preservative-free Harsh Mcnair MD Work Phone: [facility] 06-17-2016 influenza, high dose seasonal, preservative-free Harsh Mcnair MD Work Phone: [facility] Work Phone: 06-13-2015 influenza, high dose seasonal, preservative-free Harsh Mcnair MD Work Phone: [facility] 09-27-2014 pneumococcal conjuga te vaccine, 13 valent Harsh Mcnair MD Work Phone: [facility] Work Phone: 06-09-2014 influenza, high dose seasonal, preservative-free Harsh Mcnair MD Work Phone: [facility] 06-22-2012 zoster vaccine, live Harsh rodríguez MD Work Phone: [facility] 06-02-2012 influenza virus vaccine, unspecified formulation Harsh Mcnair MD Work Phone: [facility] 08-04-2011 tetanus toxoid, redu denis diphtheria toxoid, and acellular pertussis vaccine, adsorbed Harsh Mcnair MD Work Phone: [facility] 06-24-2011 influenza virus vaccine, unspecified formulation Harsh Mcnair MD Work Phone: [facility] Work Phone: 08-05-2006 pneumococcal polysaccharide vaccine, 23 valent Harsh Mcnair MD Work Phone: [facility] 07-08-2006 influenza virus vaccine, unspecified formulation Harsh Mcnair MD Work Phone: [facility] Work Phone: 07-02-2005 pneumococcal polysaccharide vaccine, 23 valent Harsh Mcnair MD Work Phone: [facility] Work Phone: 08-21-1998 diphtheria and tetan us toxoids, adsorbed for pediatric use Harsh Mcnair MD Work Phone: [facility] 08-15-1998 pneumococcal polysaccharide vaccine, 23 valent Harsh Mcnair MD Work Phone: [facility] 04-19-1960 trivalent poliovirus vaccine, live, oral Harsh Mcnair MD Work Phone: [facility] Payers Date Payer Category Payer Private Health Insurance [facility] INDEMNITY [id number] 2020-Present [phone] [address] [place] [address] Indemnity [id number] 2020 Private Health Insurance [id number] 2020 Unknown [id number] 2005 Medicare MEDICARE MEDICAR E A AND B [id number] 2005-Present [phone] [place] [address] Medicare [id number] 2005 Medicare MEDICARE MEDICAR E A AND B [id number] 2005-Present [phone] [address] [address] [place] [address] Medicare [id number] 2005 Medicare [id number] Social History Date Type Detail Facility Start: 05-21-2022 Tobacco smoking status NHIS Never sm oked tobacco [facility] Start: 10-09-2021 End: 04-17-2023 Alcohol intake Current drinker of alcohol (finding) [facility] Start: 07-04-2020 End: 07-30-2022 History SDOH Financial 5 [facility] Start: 07-04-2020 End: 07-30-2022 History SDOH Food Worry 1 [facility] Start: 07-04-2020 End: 07-30-2022 History SDOH Transport Med 2 [facility] Start: 1940 Sex Assigned At Not on file [facility] Start: 01-12-2022 End: 08-06-2022 Exposure to SARS-CoV-2 (event) Not sure [facility] Start: 03-02-2022 History SDOH Alcohol Std Drinks 98 [facility] Start: 03-02-2022 History SDOH Social Connections [facility] 3 [facility] Start: 03-02-2022 End: 07-30-2022 History SDOH Social Connections Living 4 [facility] Start: 03-02-2022 End: 07-30-2022 History SDOH Physical Activity DPW 0 [facility] Start: 05-21-2022 Tobacco use and exposure Smoke less tobacco non-user [facility] Start: 07-30-2022 End: 01-27-2023 History of Social function [facility] Start: 07-30-2022 End: 01-27-2023 Social connection and isolation panel [facility] Do you belong to any clubs or organizations such as roman catholic groups, unions, fraternal or athletic groups, or school groups? Yes [facility] Are you now , , , , never or living with a partner? [facility] How often to you hav e a drink containing alcohol? Never [facility] How many standard dr inks containing alcohol do you have on a typical day? Patient does not drink [facility] Do you feel stress - tense, restless, nervous, or anxious, or unable to sleep at night because your mind is troubled all the time - these days [OSQ] Only a little [facility] (I/We) worried wheth er (my/our) food would run out before (I/we) got money to buy more. Never true [facility] In the past 12 month s, was there a time when you were not able to pay the mortgage or rent on time? No [facility] Medical Equipment Procedure Code Equipment Code Equipment Origin al Text Equipment Identifier Dates Catheter Bactise al 14cm External Drainage Csf Sterile Latex Free - [id number] Start: 04-13-2020 Catheter Bactise al 120cm External Drainage Csf Sterile Latex Free - [id number] Start: 04-13-2020 [place] Holter [place] 6mm Plastic Base 15cm Shunt Ventricular Catheter - [id number] Start: 04-13-2020 Catheter Edm Bar ium Silicone 80cm Drainage Open Tip Impregnate Sterile - [id number] Start: 02-14-2020 Programmable Awa ve Inline Small Valve W/[id number] Start: 04-13-2020 Start: 09-09-2018 Clinical Notes 04-13-2020 to 05-06-2023 Telephone Encounter - Jeannie Santana LPN - 05/06/2023 3:17 PM EDTTelephone Encounter - Shahrzad Anderson Ma - 05/05/2023 3:47 PM EDTPatient InstructionsPatient InstructionsPatient Instructions Note Date & Type Note Facility 05-06-2023 Miscellaneous Notes Spoke with pt's daughter and information listed below given. Pt's daughter verbalizes understanding. Jeannie Santana LPN Message left for Roselyn to call back. Shahrzad Anderson Ma The ASA was probably to reduce the risk of [place]; it would be OK to stop this now It would be OK to take 1000 mg tylenol rather than the mobic Harsh Mcnair MD Daughter calling to let you know pt was admitted into [facility] yesterday 05-04-23. Daughter has 2 questions. 1)[facility] would like to know why pt is taking baby aspirin daily. 2) [facility] asking if pt would be able to take 1000 mg of extra strength Tylenol instead of Meloxicam due to possible bleeding. Please advise daughter on both issues above. Jeannie Santana LPN documented in this encounter [facility] 04-21-2023 Miscellaneous Notes Talia with [facility] calls to report that pt is looking at moving into their facility for Assisted Living. Talia requested face sheet, H&P, OV notes. Faxed to: [phone] as reqeusted. Lynette Page LPN documented in this encounter [facility] 04-17-2023 Note HNO ID: [id number] Author: Laquita Coulter APRN.COMMERCIAL STRIPPER Service: ? Author Type: Nurse Practitioner Type: Progress Notes Filed: 04/17/2023 3:34 PM Note Text: This is a 82 year old female who presents today with: Patient presents with: Follow Up: admission to [place]. HISTORY OF PRESENT ILLNESS: Ramona Mike is a 82 year old female. Patient presents with: Follow Up: admission to [place]. Here in the office for follow-up prior to admission to long-term care facility ( [facility]), Daughter present for this visit. Using walker to ambulate, had a fall 1 week ago in the bathroom when pulling up pants. No injury. Daughter refers that she has difficulty with walking and getting in the car. Legs do not seem to be as strong as previously. Has PT exercises to do at home but has not been doing it. Has live in help at home. Dementia: Following with brain health, Marcelo Andrade CNP. Taking Aricept 5 mg daily. Shunt in brain, follow up yearly. Short term memory seems to be a concern. Diabetes: Fasting blood sugar, 200. Taking Januvia 100 mg daily, metformin 500 mg, 2 tablets twice daily, and Amaryl 4 mg daily. Watching diet. Denies any increased thirst, urination, or any hypoglycemic episodes. Lipids: Taking Zocor 40 mg daily. Constipation: Using 2 stool softeners as needed, taking Metamucil and prunes daily. Stable. Urology: Following with urology for urine retention. Taking Gemtesa 75 mg daily. Has not noticed much improvement. Use to be dry during the day but recently now having incontinence all the time. Using pull up depends daily. Other sister discussed with neurologist if he thought pelvic floor therapy would be beneficial. No planned follow-ups at this time with urology. Arthritis: Taking meloxicam 7.5 mg daily. Depression/HONG: Taking Zoloft 100 mg, 2 tabs daily. Refers she feels well. Labs due in July PAST MEDICAL HISTORY: PAST MEDICAL HISTORY Diagnosis Date Adjustment disorder with depressed mood Cervical spondylosis Female stress incontinence Generalized osteoarthrosis, unspecified site General Osteoarthritis Neural foraminal stenosis of cervical spine Other and unspecified hyperlipidemia 08/03/2006 Other constipation Type II or unspecified type diabetes mellitus without mention of complication, not stated as uncontrolled Unspecified sleep apnea Uses CPAP Urge incontinence Urgency of urination PAST SURGICAL HISTORY Procedure Laterality Date APPENDECTOMY BIOPSY BREAST OPEN INCISIONAL Bx of breast, incisionalx2 COLONOSCOPY FLX DX W/COLLJ SPEC WHEN PFRMD 10-18-03 Colonoscopy-per repeat in LIG/TRNSXJ FLP TUBE ABDL/VAG APPR UNI/BI Tubal ligation PAST SURGICAL HISTORY OF hemorrhoidectomy PAST SURGICAL HISTORY OF 05/29/2008 rt. hip replacement ALLERGIES Penicillins and Iodine MEDICATIONS Current Outpatient Medications Medication Sig meloxicam (MOBIC) 7.5 mg tablet Take 1 tablet by mouth once daily. Take with food. vibegron (GEMTESA) 75 mg tablet Take 1 tablet by mouth once daily. linaGLIPtin (TRADJENTA) 5 mg tab Take 1 tablet by mouth once daily. simvastatin (ZOCOR) 40 mg tablet Take 1 tablet by mouth once daily. glimepiride (AMARYL) 4 mg tablet Take 1 tablet by mouth daily with breakfast. donepezil (ARICEPT) 5 mg tablet Take 1 tablet by mouth daily with breakfast. sertraline (ZOLOFT) 100 mg tablet Take 2 tablets by mouth once daily. metFORMIN (GLUCOPHAGE) 500 mg tablet TAKE TWO TABLETS BY MOUTH IN THE MORNING. TAKE TWO TABLETS BY MOUTH WITH DINNER. [facility] ULTRA TEST test strip TEST BLOOD SUGAR 1 TIMES DAILY. DX TYPE 2 DM CONTROLLED E11.9 INSULIN: NO. OTC NUTRITIONAL SUPPLEMENT once daily. Prevagen aspirin, enteric coated (ASPIRIN, ENTERIC COATED) 81 mg EC tablet Take 1 tablet by mouth once daily. Lactobacillus acidophilus (PROBIOTIC ORAL) Take by mouth once daily. glucosamine HCl/chondroitin romano (GLUCOSAMINE-CHONDROITIN ORAL) Take by mouth once daily. acetaminophen (TYLENOL) 325 mg tablet Take 2 tablets by mouth every 4 hours as needed. calcium carbonate 600 mg-cholecalciferol 200 units 600 mg-5 mcg (200 unit) tab Take 1 tablet by mouth once daily. Lancets (ACCU-CHEK SOFTCLIX LANCETS) lancets Test blood sugar(s) 1 times daily. Dx: Type 2 DM- Controlled E11.9 Insulin: No Cholecalciferol, Vitamin D3, 1,000 unit cap Take 1 capsule by mouth once daily. multivitamins(DAILY MULTIPLE TAB) Take one(1) tablet daily. STOOL SOFTENER 100 MG CAP Take 200 mg by mouth once daily. No current facility-administered medications for this visit. FAMILY HISTORY Problem Relation Age of Onset None Mother Diabetes Father other (CHF) Father Breast Cancer Maternal Grandmother Social History Tobacco Use Smoking status: Never Smokeless tobacco: Never Vaping Use Vaping Use: Never used Substance Use Topics Alcohol use: Yes Comment: rare Drug use: No REVIEW OF S (more content not included)... [facility] 04-17-2023 Instructions Laquita Coulter APRN.CNP - 04/17/2023 1:45 PM EDT Contact the urologist to discuss incontinence, if you would like order for pelvic floor therapy contact the office. Keep scheduled appointments with neurology. Recommend physical therapy to help with balance and strength. Get labs completed prior to office visit in July. Continue to take all medications as prescribed. Continue to eat a well balanced diet, watch higher carb foods. Follow up as scheduled or sooner as needed. documented in this encounter [facility] 04-17-2023 History of Present illness Narrative This is a 82 year old female who presents today with: Patient presents with: Follow Up: admission to [place]. HISTORY OF PRESENT ILLNESS: Ramona Mike is a 82 year old female. Patient presents with: Follow Up: admission to [place]. Here in the office for follow-up prior to admission to long-term care facility ( [place] [facility]arreal), Daughter present for this visit. Using walker to ambulate, had a fall 1 week ago in the bathroom when pulling up pants. No injury. Daughter refers that she has difficulty with walking and getting in the car. Legs do not seem to be as strong as previously. Has PT exercises to do at home but has not been doing it. Has live in help at home. Dementia: Following with brain [employer], Marcelo Vizcainomonika DONALD. Taking Aricept 5 mg daily. Shunt in brain, follow up yearly. Short term memory seems to be a concern. Diabetes: Fasting blood sugar, 200. Taking Januvia 100 mg daily, metformin 500 mg, 2 tablets twice daily, and Amaryl 4 mg daily. Watching diet. Denies any increased thirst, urination, or any hypoglycemic episodes. Lipids: Taking Zocor 40 mg daily. Constipation: Using 2 stool softeners as needed, taking Metamucil and prunes daily. Stable. Urology: Following with urology for urine retention. Taking Gemtesa 75 mg daily. Has not noticed much improvement. Use to be dry during the day but recently now having incontinence all the time. Using pull up depends daily. Other sister discussed with neurologist if he thought pelvic floor therapy would be beneficial. No planned follow-ups at this time with urology. Arthritis: Taking meloxicam 7.5 mg daily. Depression/HONG: Taking Zoloft 100 mg, 2 tabs daily. Refers she feels well. Labs due in July PAST MEDICAL HISTORY: PAST MEDICAL HISTORY Diagnosis Date Adjustment disorder with depressed mood Cervical spondylosis Female stress incontinence Generalized osteoarthrosis, unspecified site General Osteoarthritis Neural foraminal stenosis of cervical spine Other and unspecified hyperlipidemia 08/03/2006 Other constipation Type II or unspecified type diabetes mellitus without mention of complication, not stated as uncontrolled Unspecified sleep apnea Uses CPAP Urge incontinence Urgency of urination PAST SURGICAL HISTORY Procedure Laterality Date APPENDECTOMY BIOPSY BREAST OPEN INCISIONAL Bx of breast, incisionalx2 COLONOSCOPY FLX DX W/COLLJ SPEC WHEN PFRMD 10-18-03 Colonoscopy-per repeat in LIG/TRNSXJ FLP TUBE ABDL/VAG APPR UNI/BI Tubal ligation PAST SURGICAL HISTORY OF hemorrhoidectomy PAST SURGICAL HISTORY OF 05/29/2008 rt. hip replacement ALLERGIES Penicillins and Iodine MEDICATIONS Current Outpatient Medications Medication Sig meloxicam (MOBIC) 7.5 mg tablet Take 1 tablet by mouth once daily. Take with food. vibegron (GEMTESA) 75 mg tablet Take 1 tablet by mouth once daily. linaGLIPtin (TRADJENTA) 5 mg tab Take 1 tablet by mouth once daily. simvastatin (ZOCOR) 40 mg tablet Take 1 tablet by mouth once daily. glimepiride (AMARYL) 4 mg tablet Take 1 tablet by mouth daily with breakfast. donepezil (ARICEPT) 5 mg tablet Take 1 tablet by mouth daily with breakfast. sertraline (ZOLOFT) 100 mg tablet Take 2 tablets by mouth once daily. metFORMIN (GLUCOPHAGE) 500 mg tablet TAKE TWO TABLETS BY MOUTH IN THE MORNING. TAKE TWO TABLETS BY MOUTH WITH DINNER. ONETOUCH ULTRA TEST test strip TEST BLOOD SUGAR 1 TIMES DAILY. DX TYPE 2 DM CONTROLLED E11.9 INSULIN: NO. OTC NUTRITIONAL SUPPLEMENT once daily. Prevagen aspirin, enteric coated (ASPIRIN, ENTERIC COATED) 81 mg EC tablet Take 1 tablet by mouth once daily. Lactobacillus acidophilus (PROBIOTIC ORAL) Take by mouth once daily. glucosamine HCl/chondroitin romano (GLUCOSAMINE-CHONDROITIN ORAL) Take by mouth once daily. acetaminophen (TYLENOL) 325 mg tablet Take 2 tablets by mouth every 4 hours as needed. calcium carbonate 600 mg-cholecalciferol 200 units 600 mg-5 mcg (200 unit) tab Take 1 tablet by mouth once daily. Lancets (ACCU-CHEK SOFTCLIX LANCETS) lancets Test blood sugar(s) 1 times daily. Dx: Type 2 DM- Controlled E11.9 Insulin: No Cholecalciferol, Vitamin D3, 1,000 unit cap Take 1 capsule by mouth once daily. multivitamins(DAILY MULTIPLE TAB) Take one(1) tablet daily. STOOL SOFTENER 100 MG CAP Take 200 mg by mouth once daily. No current facility-administered medications for this visit. FAMILY HISTORY Problem Relation Age of Onset None Mother Diabetes Father other (CHF) Father Breast Cancer Maternal Grandmother Social History Tobacco Use Smoking status: Never Smokeless tobacco: Never Vaping Use Vaping Use: Never used Substance Use Topics Alcohol use: Yes Comment: rare Drug use: No REVIEW OF SYSTEMS GENERAL: No weight loss, malaise or fevers/chills HEENT: Negative for frequent or significant headaches, No changes in hearing or vision. NECK: Negative for lumps, goiter, pain and significant neck swelling RESPIRATORY: Negative for cough, hemoptysis, wheezing, dyspnea or shortness of breath CARDIOVASCULAR: Negative for chest pain, leg swelling, orthopnea, or palpitations GI: No nausea, vomiting, or diarrhea/constipation. No hematochezia/melena. No heartburn or reflux symptoms. : No history of dysuria, frequency or incontinence MUSCULOSKELETAL: Negative for joint pain or swelling. SKIN: Negative for lesions, rash, and itching ENDOCRINE: Negative for cold or heat intolerance, polyuria, polydipsia and goiter NEURO: No history of headaches, syncope, paralysis, seizures or tremors MOOD: Negative for depression, anxiety, or suicidal ideation. EXAM: BP 140/76 Pulse 78 Resp 16 SpO2 97% PHYSICAL EXAM: General Appearance: Well appearing, alert, in no acute distress, well-hydrated, well nourished. Skin: Skin color, texture, turgor normal, no suspicious rashes or lesions. Head: Normocephalic, no masses, lesions, tenderness or abnormalities. Eyes: Anicteric sclera. Extraocular movements are intact. Lungs: Lungs clear to auscultation. No wheezing, rhonchi, rales. Heart: RRR without murmur, gallop, or rubs. No ectopy. Extremities: No deformities, edema, skin discoloration, clubbing or cyanosis. Good capillary refill. Peripheral Pulses: Normal. Neurologic: Gait normal. Reflexes normal and symmetric. Sensation grossly intact. Good muscle strength in legs bilaterally. ASSESSMENT/PLAN: 1. 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 2. Controlled type 2 diabetes mellitus without complication, without long-term current use of insulin (HCC) - ICD9: 250.00, ICD10: E11.9 - Get labs completed prior to next OV with PCP. - Continue current medications - Counseled on healthy diet and regular exercise - Instructed to be mindful of higher carb foods. 3. Balance problem - ICD9: 781.99, ICD10: R26.89 - Recommend PT, would like to wait to until admission to [facility]. - Recommend she preform at home exercise. 4. Hyperlipidemia, unspecified hyperlipidemia type - ICD9: 272.4, ICD10: E78.5 - Control undetermined, due for labs - Continue current medications - Counseled on healthy diet and regular exercise 5. Chronic constipation - ICD9: 564.00, ICD10: K59.09 - Stable, continue with current OTC regimen. 6. Female stress incontinence - ICD9: 625.6, ICD10: N39.3 - Recommend follow up with Urology. 7. Cervical spondylosis - ICD9: 721.0, ICD10: M47.812 - Stable, continue to take Meloxicam as prescribed. 8. Depressive disorder - ICD9: 311, ICD10: F32.A - Stable, continue to take Zoloft as prescribed. Follow up as scheduled. Discussed treatment plan and patient voices understanding. Patient's questions answered appropriately. Medications and potential side effects were discussed and patient voices understanding. Laquita Coulter APRN.ODILON This note was partially generated using [employer] voice recognition system. Note was reviewed for accuracy. There may be minor misspellings or grammar miscues with [employer] voice recognition. documented in this encounter [facility] 04-03-2023 Miscellaneous Notes The following approved medication requests have been transmitted electronically. Requested Prescriptions Pending Prescriptions Disp Refills meloxicam (MOBIC) 7.5 mg tablet 30 tablet 5 Sig: Take 1 tablet by mouth once daily. Take with food. Zaheer Geller APRN.ODILON Patient phones requesting refills as follows: Requested Prescriptions Pending Prescriptions Disp Refills meloxicam (MOBIC) 7.5 mg tablet 30 tablet 5 Sig: Take 1 tablet by mouth once daily. Take with food. Please review and advise. Sofie Almodovar documented in this encounter [facility] 02-06-2023 Miscellaneous Notes This info was relayed to pts daughter. OK fro Tradjenta as ordered; it appears this is preferred by her insurance Harsh Mcnair MD Insurance has reviewed this and it has been denied. Response is. Date: 02/06/2023 Harsh Mcnair [address] [place] [address] RE: Denial of request for coverage of Januvia (sitagliptin) Dear RAMONA MIKE: You or your doctor recently requested prescription coverage for Januvia (sitagliptin). After careful consideration and review of your prescription plan's drug list and the information sent to us, this request was not approved. We understand that this decision may not be what you and your doctor expected. This letter and the enclosed information will explain your options and help you decide what to do next. Why your request was denied: Coverage for this medication is denied for the following reason(s). We reviewed the information we received about your condition and circumstances. We used plan approved criteria when making this decision. The policy states that this medication may be approved when: -The member is unable to take the required number of formulary alternatives for the given diagnosis due to an intolerance or contraindication OR -The member has tried and failed the required number of formulary alternatives. Based on the policy and the information we received your request is denied. We did not receive documentation that you meet the criteria outlined above. Formulary alternatives are: Tradjenta. Requirement: 3 in a class with 3 or more alternatives, 2 in a class with 2 alternatives, or 1 in a class 1 alternative. Note: Formulary alternatives may require a prior authorization. Your prescriber will be responsible for determining what alternative is appropriate for you. Electronic PA submitted Lauren Paz Ma Prior auth needed Ramona Mike's daughter, Roselyn is calling Harsh Mcnair MD today. [facility] pharmacy advised daughter authorization is needed before they can fill SITagliptin phosphate (JANUVIA) 100 mg tablet A new prescription was sent on 01/29 Please contact pharmacy for clarification and return daughters call at [phone] documented in this encounter [facility] 02-05-2023 Note HNO ID: [id number] Author: Marcelo Mancini APRN.COMMERCIAL [employer]IPPER Service: ? Author Type: Nurse Practitioner Type: Progress Notes Filed: 02/05/2023 5:40 PM Note Text: Ramona Mike 1940 [id number] [place] [id number] February 05, 2023 [facility] VIRTUAL FOLLOW-UP NOTE This visit was conducted using audio + video elements. I have communicated my name and active licensure. The patient's identity and physical location were verified at the time of this visit. Either the patient or their legal goodwill representative has been informed of the risks and benefits of -- and alternatives to -- treatment through a remote evaluation and consents to proceed with the evaluation remotely. Accompanied by: daughter Roselyn Mike is a pleasant 82 year old female seen today for a follow up visit. Ramona Mike is being followed for Dementia without behavioral disturbance, unspecified in the setting of NPH s/p VPS placement in 2019, and vascular Parkinsonism Patient was last seen on 09/26/22, at which time: -- NPT eval reviewed-- showing deficits in memory and exec functions- with declines since 2019 in letter fluency and encoding-based memory- meeting criteria for dementia- largely with frontal subcortical profile possibly related to hx of hydrocephalus and aspects of medical illness. Profile was less concerning for AD but could not be fully ruled out -- living independently at home w/ 30/03 caregivers- does need some assistance w/ bADLs at times -- using CPAP for CHARLES- struggling w./ some nocturia on Ditropan -- mood largely stable I considered having Ramona switch from Ditropan to mirabegron to reduce anti-cholinergic effects, consider adding donepezil at a later time, continue w/ light exercise and activity, control vascular risk factors She did later switch from Ditropan to vibegron. Today, Ramona and daughter Roselyn returns for a routine follow up visit. In the interim Ramona has been feeling pretty well - not too much different from last time we talked- cognitive symptoms seem largely stable to them She still has urinary incontinence and it continues to be a frustrating issue for her. She sleeps well but has been asking her family members to wake her up every 3 hrs at night to help her go to the bathroom. It is a bigger issue at night. Her PCP suggested that they move the vibegron to later the day to potentially help more at night- and they did this a few days ago They have looked into the Pogoplug system but Roselyn feels it may be too cumbersome- and indeed there is some equipment involved They did have a NSGY appt today and they were generally happy w/ her gait and how her CTH looked- she shunt appears to be working well. She does use a walker - and has not had any falls recently. Other interval history: Falls: negative Sleep: described as normal, feels rested upon waking- +CHARLES on CPAP Mood: good ADL's requires assistance with the following ADL's: bathing, using household appliances, taking medications, dressing, grocery shopping, house cleaning, driving, and finances Driving?: No PAST MEDICAL HISTORY Diagnosis Date Adjustment disorder with depressed mood Cervical spondylosis Female stress incontinence Generalized osteoarthrosis, unspecified site General Osteoarthritis Neural foraminal stenosis of cervical spine Other and unspecified hyperlipidemia 08/03/2006 Other constipation Type II or unspecified type diabetes mellitus without mention of complication, not stated as uncontrolled Unspecified sleep apnea Uses CPAP Urge incontinence Urgency of urination SOCIAL HISTORY Social History Tobacco Use Smoking status: Never Smokeless tobacco: Never Vaping Use Vaping Use: Never used Substance Use Topics Alcohol use: Yes Comment: rare Drug use: No Social History reviewed by Marcelo Mancini APRN.CNP PATIENT-ENTERED DATA Patient-Reported 05/21/2022 Where are you currently living? 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 Yes Did you receive help completing this questionnaire? Yes If you received help, could you have completed this questionnaire on your own? No Activities of Daily Living (ADL) No flowsheet data found. PROMIS-10 PROMIS 10 01/03/2023 07/19/2022 In general, would you say your health is: Fair Good In general, would you say your quality of life is: Fair Good In general, how would you rate your physical health? Fair Good In general, how would you rate your mental health, including your mood and your ability to think? Fair Good In general, how would you rate your satisfaction with your social activities and relationships? Fair Good To what extent are you able to carry out your everyday physical activities such as wal (more content not included)... [facility] 02-05-2023 Instructions Marcelo Mancini APRN.CNP - 02/05/2023 5:38 PM EDT Give the vibegron (Gemtesa) more time to work later in the day - could take another week or two to start helping 2. I will ask Dr. Park about the possibility of whether pelvic floor PT could help with the urinary incontinence 3. Continue to be as active and healthy as you can be! 4. Walk with care and continue to use the walker 5. Continue CPAP compliance Follow up in about 5 months to recheck on things documented in this encounter [facility] 02-05-2023 History of Present illness Narrative Ramona Mike 1940 [id number] [place] [id number] February 05, 2023 [facility] VIRTUAL FOLLOW-UP NOTE This visit was conducted using audio + video elements. I have communicated my name and active licensure. The patient's identity and physical location were verified at the time of this visit. Either the patient or their legal goodwill representative has been informed of the risks and benefits of -- and alternatives to -- treatment through a remote evaluation and consents to proceed with the evaluation remotely. Accompanied by: daughter Roselyn SUBJECTIVE Ramona Mike is a pleasant 82 year old female seen today for a follow up visit. Ramona Mike is being followed for Dementia without behavioral disturbance, unspecified in the setting of NPH s/p VPS placement in 2019, and vascular Parkinsonism Patient was last seen on 09/26/22, at which time: -- NPT eval reviewed-- showing deficits in memory and exec functions- with declines since 2019 in letter fluency and encoding-based memory- meeting criteria for dementia- largely with frontal subcortical profile possibly related to hx of hydrocephalus and aspects of medical illness. Profile was less concerning for AD but could not be fully ruled out -- living independently at home w30/03 caregivers- does need some assistance w/ bADLs at times -- using CPAP for CHARLES- struggling w./ some nocturia on Ditropan -- mood largely stable I considered having Ramona switch from Ditropan to mirabegron to reduce anti-cholinergic effects, consider adding donepezil at a later time, continue w/ light exercise and activity, control vascular risk factors She did later switch from Ditropan to vibegron. Today, Ramona and shadia Dempsey returns for a routine follow up visit. In the interim Ramona has been feeling pretty well - not too much different from last time we talked- cognitive symptoms seem largely stable to them She still has urinary incontinence and it continues to be a frustrating issue for her. She sleeps well but has been asking her family members to wake her up every 3 hrs at night to help her go to the bathroom. It is a bigger issue at night. Her PCP suggested that they move the vibegron to later the day to potentially help more at night- and they did this a few days ago They have looked into the Pogoplug system but Roselyn feels it may be too cumbersome- and indeed there is some equipment involved They did have a NSGY appt today and they were generally happy w/ her gait and how her CTH looked- she shunt appears to be working well. She does use a walker - and has not had any falls recently. Other interval history: Falls: negative Sleep: described as normal, feels rested upon waking- +CHARLES on CPAP Mood: good ADL's requires assistance with the following ADL's: bathing, using household appliances, taking medications, dressing, grocery shopping, house cleaning, driving, and finances Driving?: No PAST MEDICAL HISTORY Diagnosis Date Adjustment disorder with depressed mood Cervical spondylosis Female stress incontinence Generalized osteoarthrosis, unspecified site General Osteoarthritis Neural foraminal stenosis of cervical spine Other and unspecified hyperlipidemia 08/03/2006 Other constipation Type II or unspecified type diabetes mellitus without mention of complication, not stated as uncontrolled Unspecified sleep apnea Uses CPAP Urge incontinence Urgency of urination SOCIAL HISTORY Social History Tobacco Use Smoking status: Never Smokeless tobacco: Never Vaping Use Vaping Use: Never used Substance Use Topics Alcohol use: Yes Comment: rare Drug use: No Social History reviewed by Marcelo Mancini APRN.[employer]IPPER PATIENT-ENTERED DATA Patient-Reported 05/21/2022 Where are you currently living? 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 Yes Did you receive help completing this questionnaire? Yes If you received help, could you have completed this questionnaire on your own? No Activities of Daily Living (ADL) No flowsheet data found. PROMIS-10 PROMIS 10 01/03/2023 07/19/2022 In general, would you say your health is: Fair Good In general, would you say your quality of life is: Fair Good In general, how would you rate your physical health? Fair Good In general, how would you rate your mental health, including your mood and your ability to think? Fair Good In general, how would you rate your satisfaction with your social activities and relationships? Fair Good To what extent are you able to carry out your everyday physical activities such as walking, climbing stairs, carrying groceries, or moving a chair? A little A little In general, please rate how well you carry out your usual social activities and roles. (This includes activities at home, at work and in your community, and responsibilities as a parent, child, spouse, employee, friend, etc.) Fair Good How would you rate your pain on average? 3 1 How would you rate your fatigue on average? Moderate Mild How often have you been bothered by emotional problems such as feeling anxious, depressed or irritable? Sometimes Rarely PROMIS Adult Short Form-Global Health Score (Physical) 37.4 (Fair) 42.3 (Good) PROMIS Adult Short Form-Global Health Score (Mental) 36.3 (Fair) 45.8 (Good) PHQ-9 PHQ-9 All Questions 02/02/2023 02/02/2023 Little interest or pleasure in doing things 0 0 Feeling down, depressed, or hopeless 1 1 Trouble falling or staying asleep, or sleeping too much 0 0 Feeling tired or having little energy 1 1 Poor appetite or overeating 1 1 Feeling bad about yourself - or that you are a failure or have let yourself or your family down 1 1 Trouble concentrating on things, such as reading the newspaper or watching television 0 0 Moving or speaking so slowly that other people could have noticed. Or the opposite - being so fidgety or restless that you have been moving around a lot more than usual 0 0 Thoughts that you would be better off , or of hurting yourself in some way 1 1 PHQ-9 Score 5 5 (0-4) minimal depression (5-9) mild depression (10-14) moderate depression (15-19) moderately severe depression (20-27) severe depression Full History of PHQ-9 Scores PHQ-9 Score 02/02/2023 5 02/02/2023 5 05/21/2022 1 03/02/2022 5 03/02/2022 5 03/02/2022 7 05/31/2020 4 10/13/2019 10 Sleep 05/21/2022 What is your average total sleep time per night over the past 4 weeks? 8 Hours What is your average total sleep time during the day over the past 4 weeks? 2 Hours Have you been diagnosed with sleep apnea? Yes Are you currently using positive airway pressure (PAP) therapy? Yes How many hours per night on average do you use PAP therapy? 8 Insomnia Severity Index 05/21/2022 Difficulty falling asleep 0 Difficulty staying asleep 1 Problem waking up too early 0 Satisfied/dissatisfied with current sleep pattern 1 Sleep interferes with daily functions 0 Sleep problems noticeable to others 0 Worried/distressed about current sleep problems 0 Score 2 Caregiver-Reported 05/21/2022 Are you the person who cares for the patient the majority of the time? (Primary Caregiver) No How are you related to the patient? Daughter Do you currently reside with the patient? No Are you currently employed outside the home? Yes What is your gender? Female Please enter your age 58 Dementia Severity Rating Scale (DSRS) No flowsheet data found. OBJECTIVE Current Outpatient Medications on File Prior to Visit Medication Sig simvastatin (ZOCOR) 40 mg tablet Take 1 tablet by mouth once daily. SITagliptin phosphate (JANUVIA) 100 mg tablet Take 1 tablet by mouth once daily. glimepiride (AMARYL) 4 mg tablet Take 1 tablet by mouth daily with breakfast. donepezil (ARICEPT) 5 mg tablet Take 1 tablet by mouth daily with breakfast. sertraline (ZOLOFT) 100 mg tablet Take 2 tablets by mouth once daily. metFORMIN (GLUCOPHAGE) 500 mg tablet TAKE TWO TABLETS BY MOUTH IN THE MORNING. TAKE TWO TABLETS BY MOUTH WITH DINNER. meloxicam (MOBIC) 7.5 mg tablet Take 1 tablet by mouth once daily. Take with food. Red GuruTOUCH ULTRA TEST test strip TEST BLOOD SUGAR 1 TIMES DAILY. DX TYPE 2 DM CONTROLLED E11.9 INSULIN: NO. vibegron (GEMTESA) 75 mg tablet Take 1 tablet by mouth once daily. OTC NUTRITIONAL SUPPLEMENT once daily. Prevagen aspirin, enteric coated (ASPIRIN, ENTERIC COATED) 81 mg EC tablet Take 1 tablet by mouth once daily. Lactobacillus acidophilus (PROBIOTIC ORAL) Take by mouth once daily. glucosamine HCl/chondroitin romano (GLUCOSAMINE-CHONDROITIN ORAL) Take by mouth once daily. acetaminophen (TYLENOL) 325 mg tablet Take 2 tablets by mouth every 4 hours as needed. calcium carbonate 600 mg-cholecalciferol 200 units 600 mg-5 mcg (200 unit) tab Take 1 tablet by mouth once daily. Lancets (ACCU-CHEK SOFTCLIX LANCETS) lancets Test blood sugar(s) 1 times daily. Dx: Type 2 DM- Controlled E11.9 Insulin: No Cholecalciferol, Vitamin D3, 1,000 unit cap Take 1 capsule by mouth once daily. multivitamins(DAILY MULTIPLE TAB) Take one(1) tablet daily. STOOL SOFTENER 100 MG CAP Take 200 mg by mouth once daily. No current facility-administered medications on file prior to visit. Vital Signs: There were no vitals taken for this visit. MoCA: Not assessed today (Previous score: 16/30 in 05/2022.) Orientation: alert Speech/Language: unremarkable -can name, repeat with no dysarthria Mood: good Affect: pleasant PDW:no SI:no Self-injurious behavior:no Emotional state: calm, cooperative Thought Process: intact Thought Content: intactappropriate Hallucinations: none reported Judgment: intact Insight: good Diagnostic Results: Neuropsych Testing from 07/11/22 IMPRESSIONS/SUMMARY Abnormal cognitive profile with deficits in memory and executive functions. Relative to 2019, declines in letter fluency and encoding-based memory with a stable deficit in memory retention. Dementia. Hydrocephalus, vascular risks. Ramona Mike is an 82-year-old female with a history of hydrocephalus (s/p CONDUCTOR SYMPHONIC ORCHESTRA shunt April 2020), hypertension, hyperlipidemia, and diabetes who presents with a 1-2 year history of cognitive concerns with a declining course. She previously underwent neuropsychological evaluation with Mona Gonzalez, PHD on 02/14/2020, which revealed weaknesses in working memory, verbal fluencies, and visuospatial abilities. Functionally, she requires 24/7 caregiver support and is functionally reliant on others for select basic ADLs (I.e. bathing) and all instrumental ADLs. Results of neuropsychological testing revealed an abnormal cognitive profile with most notable deficits in memory and executive functions. Specifically, her memory profile revealed deficits at the stages of learning and retention with mild benefit from recognition cues. Within executive functions, she demonstrated deficits in divided attention, inhibition, and everyday problem solving. Consistent with executive dysfunction, letter fluency was poor while all other language testing was intact. Visuospatial abilities were a weakness. Otherwise, attention and processing speed were grossly within age-based expectations (low average). Relative to her 2020 evaluation, she demonstrated declines in letter fluency (low average to extremely low) and encoding of verbal information (low average to extremely low). Within memory, retention was a stable deficit from 2020 (0% retention on all tasks). Recognition scores were also lower, but this may be influenced by worsened encoding of the information. All other scores were stable. The patient currently meets criteria for dementia based on the presence of cognitive weakness in functional dependence. The pattern of her performances is most consistent with frontal-subcortical systems inefficiencies. Etiology may be related to her history of hydrocephalus. Additionally, her medical history (I.e. diabetes, heart disease) places her at risk for vascular dementia. Her cognitive profile was less concerning for Alzheimer's disease, though this cannot be entirely ruled out. Brain MRI would be helpful to assess the presence of white matter disease and regional atrophy patterns, though it is unclear if this is a possibility due MRI safety contraindications (defer to medical providers). Mood may be contributory, though she is endorsing less depression on the current evaluation compared to 2020. Very Superior Superior High Average Average X Low Average X X X X Moderately Low X X Extremely Low X X Letter Fl Estimated IQ Learning Recall Recognition Attention Processing Speed Executive Language Visuospatial Memory *see description ASSESSMENT: (F02.80) 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) (primary encounter diagnosis) (G91.2) NPH (normal pressure hydrocephalus) (HCC) (Z98.2) S/P CONDUCTOR SYMPHONIC ORCHESTRA shunt (F33.41) Major depressive disorder, recurrent, in partial remission (HCC) (N39.3) Female stress incontinence PLAN: Give the vibegron (Signixa) more time to work later in the day - could take another week or two to start helping 2. I will ask Dr. Park about the possibility of whether pelvic floor PT could help with the urinary incontinence 3. Continue to be as active and healthy as you can be! 4. Walk with care and continue to use the walker 5. Continue CPAP compliance Follow up in about 5 months to recheck on things I spent a total of 30 minutes on the date of service which included sose-gr-refs patient care and counseling and educating the patient/daughter. Marcelo Mancini, MSN, RADIOLOGICAL ENGINEER-C, CNRN CC: 1. Harsh Mcnair MD, (fax) [phone] documented in this encounter [facility] 02-05-2023 Note HNO ID: [id number] Author: Ramírez Leavitt PA-C Service: ? Author Type: Physician Auto Customize Painter Type: Progress Notes Filed: 02/05/2023 3:15 PM Note Text: CC: CONDUCTOR SYMPHONIC ORCHESTRA shunt f/u HPI: Mrs Mike comes to clinic today for surgical f/u. She had a CONDUCTOR SYMPHONIC ORCHESTRA shunt implanted on 04/13/20 with Certas valve. Ramona was last seen on 03/06/22 where she admitted improvement in gait following previous shunt adjustment. Since last visit Ramona continues to ambulate well with her walker. She does admit continued issues with night time urinary control and short term memory but denies major changes. No new onset symptoms. Focused Exam: Right frontal shunt site examined, no erythema, edema, warmth, or drainage noted. Incisions well approximated without evidence of wound dehiscence. Shunt is palpable. Higher integrative function: Oriented to person, place and time, speech clear and fluent, fundi of knowledge good, accurate naming of objects CN II: Visual acuity normal, Visual alejandra full to confrontation CN III, IV, : Pupils equal, round and reactive to light, full extraoccular movements without nystagmus CN V: Facial sensation intact bilaterally to fine touch and pinprick, masseter 5/5 CN VII: Facial muscles symmetric and strong CN VIII: Hears finger rub well bilaterally CN IX: not tested CN X: Palate elevates symmetrically CN XI: Full strength shoulder shrug bilaterally CN XII: Tongue protrusion full and midline Motor: muscle strength 5/5 both upper and lower extremities, arm swing normal, no drift present, muscle tone normal and without evidence of atrophy Cerebellar: stable gait with walker Impression: Mrs Ramona Mike is a pleasant 80 year old female with a history of NPH. She had CONDUCTOR SYMPHONIC ORCHESTRA shunt implantation on 04/13/20 with Certas valve. Ramona's Certas valve is currently set to 4 and she admits continued improvement in ambulation. She admits stable gait with walker and is taking long steps. Mrs Mike does continue to experience night time urgency and rare incontinence but denies major changes. Her short term memory has also slowly declined, again without major change. Mrs Mike and her daughter deny new onset symptoms and are happy with current symptom improvement. CT brain reviewed which shows stable enlarged ventricle system, CONDUCTOR SYMPHONIC ORCHESTRA shunt catheter in place and no acute abnormalities. Follow up in 6-[address] brain Plan: Shunt information Shunt type: Certas Initial settin New settin Ramírez Leavitt PA-C [facility] 02-05-2023 Note HNO ID: [id number] Author: RT Miguel(R) Service: Radiology Author Type: Technologist Type: Progress Notes Filed: 02/05/2023 1:45 PM Note Text: Radiology Service Progress Note PATIENT NAME: Ramona Mike DATE OF SERVICE: February 05, 2023 TIME: 1:45 PM PATIENT IDENTITY VERIFICATION COMPLETED USING TWO (2) IDENTIFIERS: Name and Date of confirmed by patient verbally and Name and Date of confirmed by identification band. FALL SCREENING: Has the patient had 2 falls in the last year or 1 fall with injury or currently using an Ambulatory Assistive Device (Walker, Cane, Wheelchair, Crutches, etc.)? No PATIENT GENDER DATA: Female. status: : No status: NO. PATIENT RELEVANT IMPLANT DATA REVIEWED: Yes RADIOLOGY DEPARTMENT: CT; Exam(s) Completed: Brain PERIPHERAL IV DATA: Not applicable SIGNED BY: RT Jeffrey(R) February 05, 2023 1:45 PM [facility] 02-05-2023 History of Present illness Narrative CC: CONDUCTOR SYMPHONIC ORCHESTRA shunt f/u HPI: Mrs Mike comes to clinic today for surgical f/u. She had a CONDUCTOR SYMPHONIC ORCHESTRA shunt implanted on 04/13/20 with Certas valve. Ramona was last seen on 03/06/22 where she admitted improvement in gait following previous shunt adjustment. Since last visit Ramona continues to ambulate well with her walker. She does admit continued issues with night time urinary control and short term memory but denies major changes. No new onset symptoms. Focused Exam: Right frontal shunt site examined, no erythema, edema, warmth, or drainage noted. Incisions well approximated without evidence of wound dehiscence. Shunt is palpable. Higher integrative function: Oriented to person, place and time, speech clear and fluent, fundi of knowledge good, accurate naming of objects CN II: Visual acuity normal, Visual alejandra full to confrontation CN III, IV, : Pupils equal, round and reactive to light, full extraoccular movements without nystagmus CN V: Facial sensation intact bilaterally to fine touch and pinprick, masseter 5/5 CN VII: Facial muscles symmetric and strong CN VIII: Hears finger rub well bilaterally CN IX: not tested CN X: Palate elevates symmetrically CN XI: Full strength shoulder shrug bilaterally CN XII: Tongue protrusion full and midline Motor: muscle strength 5/5 both upper and lower extremities, arm swing normal, no drift present, muscle tone normal and without evidence of atrophy Cerebellar: stable gait with walker Impression: Mrs Ramona Mike is a pleasant 80 year old female with a history of NPH. She had CONDUCTOR SYMPHONIC ORCHESTRA shunt implantation on 04/13/20 with Certas valve. Ramona's Certas valve is currently set to 4 and she admits continued improvement in ambulation. She admits stable gait with walker and is taking long steps. Mrs Mike does continue to experience night time urgency and rare incontinence but denies major changes. Her short term memory has also slowly declined, again without major change. Mrs Mike and her daughter deny new onset symptoms and are happy with current symptom improvement. CT brain reviewed which shows stable enlarged ventricle system, CONDUCTOR SYMPHONIC ORCHESTRA shunt catheter in place and no acute abnormalities. Follow up in 6-[address] brain Plan: Shunt information Shunt type: Certas Initial settin New settin Ramírez Leavitt PA-C documented in this encounter [facility] 02-05-2023 History of Present illness Narrative Radiology Service Progress Note PATIENT NAME: Ramona Mike DATE OF SERVICE: February 05, 2023 TIME: 1:45 PM PATIENT IDENTITY VERIFICATION COMPLETED USING TWO (2) IDENTIFIERS: Name and Date of confirmed by patient verbally and Name and Date of confirmed by identification band. FALL SCREENING: Has the patient had 2 falls in the last year or 1 fall with injury or currently using an Ambulatory Assistive Device (Walker, Cane, Wheelchair, Crutches, etc.)? No PATIENT GENDER DATA: Female. status: : No status: NO. PATIENT RELEVANT IMPLANT DATA REVIEWED: Yes RADIOLOGY DEPARTMENT: CT; Exam(s) Completed: Brain PERIPHERAL IV DATA: Not applicable SIGNED BY: RT Jeffrey(R) February 05, 2023 1:45 PM documented in this encounter [facility] 02-03-2023 Miscellaneous Notes Patient has been identified by name and date of : Yes Requested Prescriptions Pending Prescriptions Disp Refills SITagliptin phosphate (JANUVIA) 100 mg tablet 90 tablet 3 Sig: Take 1 tablet by mouth once daily. RX INSTRUCTIONS: Patient aware RX will be sent to pharmacy. No need to notify patient. Bonnie Santana Pss documented in this encounter [facility] 01-29-2023 Note HNO ID: [id number] Author: Harsh Mcnair MD Service: ? Author Type: Physician Type: Progress Notes Filed: 01/29/2023 2:32 PM Note Text: Chief Complaint Patient presents with: 6 Month Exam HPI Ramona Mike is a 82 year old female who presents here today for 6 month follow up. Here with her daughters Mouna and Roselyn. Has an advanced directive. Getting people that stay with her all day and night Mon-Fri and then her daughters care for her on weekends. Has not thought about going into an Assisted Living Facility. Patient has not felt that she needs the extra care or safety provided by an assisted living facility. She uses her walker at home, wheelchair when available. She does not have any stairs that she has to use while at home other than 1-2 steps to the garage, has a ramp. She did have a life alert but she would forget what it was for and how to use it. At times will forget to use her walker. She is having hard time getting up to a sitting position but needs a lot of help getting up to standing position from sitting on bed. They have a bed rail on the bed for her to use to pull herself up from laying down. She has a toilet launcher that helps push her up off the toilet and she has a lift chair. She has done PT in the past for strengthening and balance but she does not always remember to do the exercises at home. Daughters try to get her to go outdoors with them to walk. No bowel, Gi, or urinary issues. Struggles with constipation, takes 2 stool softeners, metamucil, prunes or prune juice daily. If that doesn't help she will take Miralax. Follows with Urologist Cristine Vega for urine retention. Had renal ultrasound and cysto done recently. No longer using Ditropan and started on Gemtesa 75 mg daily. Dementia: Following with [facility]. Is on Aricept 5 mg once daily. Unsure if the memory is any worse. She does seem to repeat herself a lot. DM: Checking BS once daily with FBS running 180-250. Denies having any low blood sugars or neuropathy sx. Currently taking Januvia 100 mg daily, Metformin 500 mg 2 pills BID, and Amaryl 4 mg daily. Lipid: Taking Zocor 40 mg daily, toleraing well. Tries to watch diet. No exercise. No chest pains, dizziness, or SOB. Arthritis: pain doing well with Mobic 7.5 mg once daily, complains a lot about bilateral shoulder, but right worse. Uses Tylenol prn. Depression/HONG: Is doing well with Zoloft 100 mg, 2 pills once daily. She uses a walker and wheelchair at home and outside the home. Past medical history, appointments, medications, allergies reviewed. Previous Medical History PAST MEDICAL HISTORY Diagnosis Date Adjustment disorder with depressed mood Cervical spondylosis Female stress incontinence Generalized osteoarthrosis, unspecified site General Osteoarthritis Neural foraminal stenosis of cervical spine Other and unspecified hyperlipidemia 08/03/2006 Other constipation Type II or unspecified type diabetes mellitus without mention of complication, not stated as uncontrolled Unspecified sleep apnea Uses CPAP Urge incontinence Urgency of urination Previous Surgical History PAST SURGICAL HISTORY Procedure Laterality Date APPENDECTOMY BIOPSY BREAST OPEN INCISIONAL Bx of breast, incisionalx2 COLONOSCOPY FLX DX W/COLLJ SPEC WHEN PFRMD 10-18-03 Colonoscopy-per repeat in LIG/TRNSXJ FLP TUBE ABDL/VAG APPR UNI/BI Tubal ligation PAST SURGICAL HISTORY OF hemorrhoidectomy PAST SURGICAL HISTORY OF 05/29/2008 rt. hip replacement Family History FAMILY HISTORY Problem Relation Age of Onset None Mother Diabetes Father other (CHF) Father Breast Cancer Maternal Grandmother Patient Allergies ALLERGIES Allergen Reactions Penicillins Anaphylaxis Iodine Intolerance Current Medications Current Outpatient Medications on File Prior to Visit Medication Sig sertraline (ZOLOFT) 100 mg tablet Take 2 tablets by mouth once daily. donepezil (ARICEPT) 5 mg tablet Take 1 tablet by mouth daily with breakfast. metFORMIN (GLUCOPHAGE) 500 mg tablet TAKE TWO TABLETS BY MOUTH IN THE MORNING. TAKE TWO TABLETS BY MOUTH WITH DINNER. meloxicam (MOBIC) 7.5 mg tablet Take 1 tablet by mouth once daily. Take with food. Red GuruTOUCH ULTRA TEST test strip TEST BLOOD SUGAR 1 TIMES DAILY. DX TYPE 2 DM CONTROLLED E11.9 INSULIN: NO. vibegron (GEMTESA) 75 mg tablet Take 1 tablet by mouth once daily. OTC NUTRITIONAL SUPPLEMENT once daily. Prevagen (Patient not taking: Reported on 01/07/2023) glimepiride (AMARYL) 4 mg tablet Take 1 tablet by mouth daily with breakfast. SITagliptin (JANUVIA) 100 mg tablet Take 1 tablet by mouth once daily. simvastatin (ZOCOR) 40 mg tablet Take 1 tablet by mouth once daily. aspirin, enteric coated (ASPIRIN, ENTERIC COATED) 81 mg EC tablet Take 1 tablet by mouth once daily. Lactobacillus acidophilus (PROBIOTIC ORAL) Take by (more content not included)... [facility] 01-27-2023 Note HNO ID: [id number] Author: Kenneth Park Jr., MD Service: ? Author Type: Physician Type: Procedures Filed: 01/27/2023 11:07 AM Note Text: CYSTOSCOPY PROCEDURE NOTE: Ramona Mike is a 82 year old female who presents with urge incontinence for a cystoscopy. Pt ID verified with patient: Yes Fire risk assessment done Procedure verified with patient: Yes Procedure confirmed with physician and manager client support: Yes UNIVERSAL PROTOCOL / SAFETY CHECKLIST Procedure to be Performed: cystoscopy Sign In: A Moment of CARE was completed. Personnel directly involved with the procedure wore the appropriate PPE (Personal Protective Equipment). Patient/Surrogate Stated/Verified: PATIENT VERIFIED(optional for EMERGENT procedures): Patient name, Date of , Relevant allergies, and The intended procedure Time Out Communication: Intended patient and procedure match the source documents. Consent documented and matches the intended procedure. Sign Out: SIGN OUT (optional for EMERGENT procedures): No specimen collected. Kenneth Park Jr, MD Pre procedure dx: incontinence Post procedure dx: same A urinalysis was performed revealing no evidence of infection. The benefits, risks, alternatives of the cystoscopy procedure and personnel were discussed with the patient. The verbal consent was obtained and the patient agrees to proceed. Female staff present for entire exam/procedure. Procedure: The patient was placed on the procedure table in the supine position and prepped and draped in the usual sterile fashion. 2% Lidocaine Jelly was placed per urethra as an anesthetic in the standard fashion. Once adequate local anesthesia was achieved, the tip of the flexible cystoscope was carefully placed into the urethra under direct visual guidance. The scope was negotiated per urethra with no evidence of stricture into the bladder. Careful rivera endoscopy was carried out. The posterior, superior and lateral mendoza and dome of the bladder were all well visualized and the scope was retroflexed upon itself. The findings were consistent with no evidence of bladder mucosal pathology. At the conclusion of the procedure, the flexible cystoscope was removed atraumatically. The patient tolerated the procedure without complications. Patient was given standard post-procedure instructions, and was directed to complete the course of oral antibiotics and increase oral fluid intake as directed. ASSESSMENT/PLAN: Behavioral management Gemtesa Cysto nl Set for prn Kenneth Park Jr, MD [facility] 01-16-2023 Miscellaneous Notes The following approved medication requests have been transmitted electronically. Requested Prescriptions Pending Prescriptions Disp Refills sertraline (ZOLOFT) 100 mg tablet 180 tablet 3 Sig: Take 2 tablets by mouth once daily. Zaheer Geller APRN.CNP Patient has been identified by name and date of : Yes Requested Prescriptions Pending Prescriptions Disp Refills sertraline (ZOLOFT) 100 mg tablet 180 tablet 3 Sig: Take 2 tablets by mouth once daily. RX INSTRUCTIONS: Patient aware RX will be sent to pharmacy. No need to notify patient. Janeth Spring MA Diego 07/2022 Nov 01/2023 Last refill: 01/2022 Patient has been identified by name and date of : Yes Last office visit in this department: 07/30/2022 RX INSTRUCTIONS: Patient aware RX will be sent to pharmacy. No need to notify patient. Patient phones requesting refills as follows: Requested Prescriptions Pending Prescriptions Disp Refills sertraline (ZOLOFT) 100 mg tablet 180 tablet 3 Sig: Take 2 tablets by mouth once daily. Please review and advise. ATILIO Looney documented in this encounter [facility] 01-15-2023 Miscellaneous Notes Paperwork completed and faxed back to information below. Afsaneh Cruz Ma Type of form: New Rx for CPAP supplies from [facility]. CMN for DME Form received via fax When form is completed, Fax form to [phone] Form has been forwarded to Physician Desk: Dr. Xu Cruz Ma documented in this encounter [facility] 01-13-2023 Miscellaneous Notes Call to daughterRoselyn and notified her of message below from Provider, verbalized understanding. Afsaneh Cruz Ma That is something we can discuss at her upcoming appt.. If she is having trouble getting around at home without help then it sounds like it needs to be discussed Harsh Mcnair MD Pt's daughter & POA Roselyn Olivera states she & her sisters have noticed steady decline in pt's ability to move around & such. Roselyn states pt has her daughters to help her & private caretakers. She asks when is it time to discuss pt staying somewhere else besides her own home? Roselyn states she doesn't know how to broach the subject & is asking if that is something that can be discussed at pt's upcoming appt 01/29/23? Please advise. Kaelyn Ochoa LPN documented in this encounter [facility] 01-13-2023 Miscellaneous Notes [facility] pharmacy notified to remove Ditropan from pt med list. Shahrzad Anderson Ma She was taken off Ditropan due to memory changes; she is now on Gemtesa instead Harsh Mcnair MD documented in this encounter [facility] 01-09-2023 Note HNO ID: [id number] Author: Kathryn Lombardi RDMS Service: ? Author Type: Stem Mounter Type: Progress Notes Filed: 01/09/2023 7:43 AM Note Text: Radiology Service Progress Note PATIENT NAME: Ramona Mike DATE OF SERVICE: January 09, 2023 TIME: 7:43 AM PATIENT IDENTITY VERIFICATION COMPLETED USING TWO (2) IDENTIFIERS: Name and Date of confirmed by patient verbally. FALL SCREENING: Has the patient had 2 falls in the last year or 1 fall with injury or currently using an Ambulatory Assistive Device (Walker, Cane, Wheelchair, Crutches, etc.)? Yes, Patient High Risk for Falls What interventions were put in place to prevent falls during this visit? Offered Assistance with Transfers/Clothing, Instructed Patient to Remain Seated (Not on Exam Table) Until Exam, Increased Observations by Caregivers, and Escorted to/from Restroom PATIENT GENDER DATA: Female. status: : No status: NO. PATIENT RELEVANT IMPLANT DATA REVIEWED: Not Applicable RADIOLOGY DEPARTMENT: Ultrasound PERIPHERAL IV DATA: Not applicable SIGNED BY: Kathryn Lombardi RDMS January 09, 2023 7:43 AM [facility] 01-07-2023 Note HNO ID: [id number] Author: Cristine Vega APRN.COMMERCIAL STRIPPER Service: ? Author Type: Nurse Practitioner Type: Progress Notes Filed: 01/07/2023 9:29 AM Note Text: [facility] RECONSTRUCTIVE SURGERY Consultation requested by Dr. Harsh Mcnair MD for an opinion regarding incontinence and my final recommendations will be communicated back to the requesting physician by way of shared Medical record or letter via US mail. CHIEF COMPLAINT: HISTORY OF PRESENT ILLNESS: (location, duration, severity, timing, modifying factors) 82 year old female with type 2 DM, presents for urinary leakage that began years ago, she is voiding every 2 hours at night to void, using alarms, DTF able to hold for 3-4 hours, she is wet at night. +Urgency with UUI at night. Started on Gemtesa 3 months ago prior to this she was taking ditropan prior and changed due to memory issues +constipation taking over the counter aids PVR 150 cc Straight cath for 200 cc of clear yellow urine REVIEW OF SYSTEMS : Check if present: Lower urinary tract symptoms: Nocturia Urgency incontinence: Yes Stress incontinence: minimal with cough Number of pads/day: 5+ pads; Frequency: Daytime: every 3-4 hours Nightime: every 2 hours UTI:Yes Hematuria:no Stones:No Caffeine: 2-3 1/2 caff in the morning Caffeinated drinks per day Occupation: retired Total fluid intake: water diet caffeine free pop CONSTRUCTION SAFETY CONSULTANT: Gynec: G 3, P 3 Vaginal delivery:Yes Hysterectomy:No Sexually active: No Dyspareunia: Not applicable Post-menopause:Yes Postmenopausal bleeding:No Feeling of vaginal bulge: No GI: Constipation: Yes Fecal incontinence:No NEURO: Weakness, balance problemspositive for weakness Lumbosacral disc disease: No GENERAL REVIEW OF SYSTEMS GENERAL: negative for malaise, significant weight loss and fever SKIN: Negative for lesions, rash, and itching. RESPIRATORY: Negative for cough and shortness of breath CARDIOVASCULAR: Negative for chest pain or [place] Taking a blood thinner? NO GI: Positive for constipation GENITOURINARY: urgency ENDOCRINE: Positive for diabetes NEURO: Negative for numbness, tingling, tremors MUSCULOSKELETAL: Negative for joint pain or swelling BLOOD/LYMPHATIC: No easy bleeding, easy bruising, transfusion Hx PSYCH: Negative for depression or anxiety. ALLERGIES: Penicillins and Iodine PHYSICAL EXAM: FEMALE Vital signs: There were no vitals taken for this visit. General Appearance: Normal, No acute distress, well nourished Psych:No signs of depression, anxiety, or agitation Neuro: Gait normal: No SKIN/LYMPH: No rash, lesions Respiratory: Normal, no labored breathing Cardiovascular:No extremity swelling, varices, edema, pallor, or erythema Gastrointestinal: - Liver/spleen: No abnormalities palpable - Hernia: None - Mass: None - Pain on palpation: None - Bladder/Kidney: No abnormalities palpable Extremities:Extremities normal. No deformities, edema, clubbing or skin discoloration. GENITALIA FEMALE EXAM: External Genitalia: Atrophy Urethral Meatus: Normal, no prolapse or caruncle Urethra: No mass, no tenderness and no diverticulum Urethral angle: >30 degrees Stress incontinence on exam: No Prolapse: Anterior:Stage I Apical:Stage I Posterior:Stage I Cervix: Present without inflammation or discharge Levator tenderness: No Post Void Residual (bladder scan): 200 mL Urine dip: IMPRESSION/PLAN: ASSESSMENT/PLAN: 1. Urine retention - ICD9: 788.20, ICD10: R33.9 (primary diagnosis) -straight cath for 200 cc of urine -cystoscopy, unable to tolerate UDS -no obvious obstruction on pelvic exam -+DM - US KIDNEY/BLADDER - CYSTO.PANENDO 2. 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 Cystoscopy What is a cystoscopy? A cystoscopy is a procedure done by a urologist, a doctor specializing in the urinary system. During a cystectomy, the urologist uses a scope to look at the inside of the bladder, where urine is stored, and in the urethra, the channel that urine flows through out of the bladder. A cystoscopy may also be used to remove something that shouldn t be there, such as a bladder stone, or to take a biopsy (a sample of tissue) from the bladder lining to analyze it in the lab for further information. The procedure can also help with placing a catheter, which is a thin drainage tube for urine. When is a cystoscopy needed? The cystoscopy procedure is ordered by the urologist when more information is needed about what is happening inside the lower urinary tract. Most often it is used to check for any problems in the bladder and its lining. The procedure is also an important tool to identify what may be causing abnormal problems, such as: Frequent urinary tract infections (UTIs) Hematuria, or blood in the urine Urinary frequency, or urinating more than 8 times a day Urinary urgency, or the sudden, strong urge to urinate Urinary retention, or when the bladder does not empty completely Urinary incontinence, or urine leakage Pain or burning before, during, or after urination Trouble starting the flow of urine, completing urination, or both Abnormal cells found in a urine sample How does a patient prepare for a cystoscopy? Before the procedure is recommended, the urologist will ask about the patient s medical history, current prescription and qnyd-exr-aqtioyi medications, and allergies to medications, including anesthetics. The urologist will explain what the patient can expect after the procedure. The patient may need to give a urine sample to test for a urinary tract infection (UTI). If the patient has a UTI, the urologist may treat the infection with antibiotics before performing a cystoscopy. The urologist or nurse may ask the patient to drink plenty of liquids, and to urinate immediately before the procedure. What happens during a cystoscopy procedure? The cystoscopy procedure usually takes about 30 minutes and is done on an outpatient basis. The urologist will recommend that the patient empty his or her bladder before the procedure begins. The vytm-ck-twrf process may be similar to this: The patient will be lying on an exam table. The urologist may place some gel or a local anesthetic in the patient s urethra to aid in reducing any discomfort while the procedure is taking place. The urologist will gently insert the cystoscope through the urethra into the bladder. The patient may feel discomfort or a pressure sensation. The cystoscope is a long, thin tube with a lens on one end that the urologist looks through or, on a camera-equipped scope, visualizes on a monitor. The other end of the cystoscope that is inserted into the urethra has a tiny lens with a light that allows the urologist to look inside the urethra and bladder. There are two types of cystoscopes. One has a flexible insertion tube while the other is stiff. Once the cystoscope is inserted, the urologist will need to instill some sterile water or a normal saline solution from the cystoscope into the bladder. The water /saline fills and stretches the bladder so the urologist can get a better view of the bladder wall. As the liquid enters the bladder, the patient may again feel some discomfort as well as the urge to urinate. If necessary, the urologist can remove some of the liquid from the bladder during the procedure. Once the procedure is over, the urologist may drain the patient s bladder, or ask the patient to use the bathroom to urinate before he or she leaves the office. During the brief procedure, the urologist examines the lining of the urethra as the cystoscope passes through it and then into the bladder. Once the cystoscope reaches the bladder, the urologist examines the lining of the bladder. During the procedure, the urologist can remove a bladder stone or take a biopsy if needed. Sometimes a monitor is set up in the doctor s office so that both the urologist and patient can watch the procedure as it is taking place. What does the urologist look for during a cystoscopy? The urologist will be looking for anything that appears unusual. The bladder wall should be smooth, and there should not be any blockages in the lower urinary tract. During a cystoscopy, the urologist is able to see: Bladder stones: A small stone-like mass that forms from minerals in the urine. It usually forms when urine does not completely leave the bladder and the minerals in the urine crystallize. If not treated, they can cause pain and lead to blood in the urine. A stone can also cause a blockage so that urine cannot leave the bladder. Abnormal tissue, polyps, tumors, or cancer in the urethra or bladder Stricture, or a narrowing of the urethra: This could be a symptom of an enlarged prostate in men or of scar tissue in the urethra. During the cystoscopy, can the urologist treat some problems? During a cystoscopy, the urologist may be able to treat minor problems such as bleeding in the bladder or blockage in the urethra. The urologist may also use a cystoscopy to: Remove a small stone in the bladder or urethra Remove or treat abnormal tissue, polyps, and certain tumors Inject medication into the urethra wall or the bladder to treat urinary leakage What happens after the cystoscopy procedure? Typically, a cystoscopy is done in the urologist s office and afterwards most patients go home the same day as the procedure. Sometimes after a cystoscopy procedure, the patient may: Feel a burning or soreness around the urethra Feel slight burning while urinating Notice small flecks of blood in the urine Feel mild discomfort in the bladder area or kidney area when urinating Need to urinate frequently or urgently These problems should not last more than a day after the procedure. If pain persists, bloody urine lasts longer than 48 hours, or the patient develops a fever, the patient should call the doctor. Occasionally, the patient may have an increase in urinary frequency for the first 24 hours after the procedure. There may be also a change in the color of the urine (it may be darker, or look pink or red due to mild bleeding). This is common, especially if a biopsy was taken. After the procedure, the urologist may recommend that the patient: Drink 16 ounces of water each hour for 2 hours after the procedure Take a warm bath to help ease the burning feeling Place a warm, damp washcloth over the urethral opening to relieve discomfort Take an kopx-cqb-szfvdzx pain medicine If necessary, the urologist may prescribe an antibiotic to take for a couple of days after the procedure to prevent an infection. If you have severe pain, chills, or fever (these could be signs of an infection), it is important to call the urologist s office and explain the symptoms. What are the risks of cystoscopy? Every patient is different, and the urologist will take into consideration each patient s specific medical history when explaining possible complications from the procedure. Although minimal, the risks of cystoscopy may include: Urinary tract infections (UTI) Bleeding Abdominal pain Burning or discomfort during urination Possible injury to the urethra or bladder Narrowing of the urethra because of scar tissue formation Trouble urinating due to swelling of surrounding tissues If any of the following symptoms occur after a cystoscopy, you should call the urologist right away: Inability to urinate and the discomfort of a full bladder Burning or discomfort during urination that lasts more than 2 days Bright red urine or blood clots in the urine Fever Severe discomfort References: NIH: National [place] of Diabetes and Digestive and Kidney Diseases. Cystoscopy and Ureteroscopy Accessed 03/05/2017. Kimberly Espinoza, Lyndon Abbott, Ravi H, Selvin RIVERO. The History of Cystoscopy in Urology, Internet Journal of Urology. 14,1 (2014) [employer] Accessed 03/05/2017. Urology [facility] [place]. What is Cystoscopy? Accessed 03/05/2017. Copyright 2378-0696 [facility]. All rights reserved. documented in this encounter [facility] 01-07-2023 History of Present illness Narrative [facility] RECONSTRUCTIVE SURGERY Consultation requested by Dr. Harsh Mcnair MD for an opinion regarding incontinence and my final recommendations will be communicated back to the requesting physician by way of shared Medical record or letter via [place] mail. CHIEF COMPLAINT: HISTORY OF PRESENT ILLNESS: (location, duration, severity, timing, modifying factors) 82 year old female with type 2 DM, presents for urinary leakage that began years ago, she is voiding every 2 hours at night to void, using alarms, DTF able to hold for 3-4 hours, she is wet at night. +Urgency with UUI at night. Started on Gemtesa 3 months ago prior to this she was taking ditropan prior and changed due to memory issues +constipation taking over the counter aids PVR 150 cc Straight cath for 200 cc of clear yellow urine REVIEW OF SYSTEMS : Check if present: Lower urinary tract symptoms: Nocturia Urgency incontinence: Yes Stress incontinence: minimal with cough Number of pads/day: 5+ pads; Frequency: Daytime: every 3-4 hours Nightime: every 2 hours UTI:Yes Hematuria:no Stones:No Caffeine: 2-3 1/2 caff in the morning Caffeinated drinks per day Occupation: retired Total fluid intake: water diet caffeine free pop CONSTRUCTION SAFETY CONSULTANT: Gynec: G 3, P 3 Vaginal delivery:Yes Hysterectomy:No Sexually active: No Dyspareunia: Not applicable Post-menopause:Yes Postmenopausal bleeding:No Feeling of vaginal bulge: No GI: Constipation: Yes Fecal incontinence:No NEURO: Weakness, balance problemspositive for weakness Lumbosacral disc disease: No GENERAL REVIEW OF SYSTEMS GENERAL: negative for malaise, significant weight loss and fever SKIN: Negative for lesions, rash, and itching. RESPIRATORY: Negative for cough and shortness of breath CARDIOVASCULAR: Negative for chest pain or [place] Taking a blood thinner? NO GI: Positive for constipation GENITOURINARY: urgency ENDOCRINE: Positive for diabetes NEURO: Negative for numbness, tingling, tremors MUSCULOSKELETAL: Negative for joint pain or swelling BLOOD/LYMPHATIC: No easy bleeding, easy bruising, transfusion Hx PSYCH: Negative for depression or anxiety. ALLERGIES: Penicillins and Iodine PHYSICAL EXAM: FEMALE Vital signs: There were no vitals taken for this visit. General Appearance: Normal, No acute distress, well nourished Psych:No signs of depression, anxiety, or agitation Neuro: Gait normal: No SKIN/LYMPH: No rash, lesions Respiratory: Normal, no labored breathing Cardiovascular:No extremity swelling, varices, edema, pallor, or erythema Gastrointestinal: - Liver/spleen: No abnormalities palpable - Hernia: None - Mass: None - Pain on palpation: None - Bladder/Kidney: No abnormalities palpable Extremities:Extremities normal. No deformities, edema, clubbing or skin discoloration. GENITALIA FEMALE EXAM: External Genitalia: Atrophy Urethral Meatus: Normal, no prolapse or caruncle Urethra: No mass, no tenderness and no diverticulum Urethral angle: >30 degrees Stress incontinence on exam: No Prolapse: Anterior:Stage I Apical:Stage I Posterior:Stage I Cervix: Present without inflammation or discharge Levator tenderness: No Post Void Residual (bladder scan): 200 mL Urine dip: IMPRESSION/PLAN: ASSESSMENT/PLAN: 1. Urine retention - ICD9: 788.20, ICD10: R33.9 (primary diagnosis) -straight cath for 200 cc of urine -cystoscopy, unable to tolerate UDS -no obvious obstruction on pelvic exam -+DM - US KIDNEY/BLADDER - CYSTO.PANENDO 2. 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 Transferred to [facility] to schedule appt. Shahrzad Anderson Ma I would suggest a Urology consult for recommendations Harsh Mcnair MD Daughter Roselyn called to let you know they have been setting an alarm to get pt up every 2 hrs to urinate and she is still waking up wet. Also concerned with getting pt up so many times a night they don't want to have a fall because she is getting noguera to maneuver at night. Daughter asking if pt would benefit from a PureWick system or something like this. If so would they need a prescription or how would they go about getting something like this. Please advise daughter. Jeannie Santana LPN documented in this encounter [facility] 10-27-2022 Miscellaneous Notes The following approved medication requests have been transmitted electronically. Requested Prescriptions Signed Prescriptions Disp Refills donepezil (ARICEPT) 5 mg tablet 90 tablet 1 Sig: Take 1 tablet by mouth daily with breakfast. Marcelo Mancini APRN.CNP documented in this encounter [facility] 10-22-2022 Miscellaneous Notes Patient daughter Roselyn calling to check status of refill request, aware rx sent to pharmacy earlier this morning. The following approved medication requests have been transmitted electronically. Requested Prescriptions Pending Prescriptions Disp Refills metFORMIN (GLUCOPHAGE) 500 mg tablet [Pharmacy Med Name: METFORMIN HCL 500 MG TABLET] 360 tablet 4 Sig: TAKE TWO TABLETS BY MOUTH IN THE MORNING. TAKE TWO TABLETS BY MOUTH WITH DINNER. Laquita Coulter APRN.CNP Patient has been identified by name and date of : Yes, Provider Dr. Mcnair Date 10/22/22 Time 7:38 am Pharmacy phones for refill(s): Requested Prescriptions Pending Prescriptions Disp Refills metFORMIN (GLUCOPHAGE) 500 mg tablet [Pharmacy Med Name: METFORMIN HCL 500 MG TABLET] 360 tablet 4 Sig: TAKE TWO TABLETS BY MOUTH IN THE MORNING. TAKE TWO TABLETS BY MOUTH WITH DINNER. Date of last office visit in primary care: 07/30/22 next apt 01/29/23 Last 2 Encounter Wt Readings: Date: Wt: 08/06/2022 79.1 kg (174 lb 4.8 oz) 07/30/2022 78.5 kg (173 lb) Previous labs/tests for medication: Diabetes: Hemoglobin A1C (%) Date Value 07/16/2022 8.0 01/15/2022 7.8 07/26/2021 7.4 04/12/2021 7.1 Thank you. Jeannie Santana LPN documented in this encounter [facility] 10-14-2022 Miscellaneous Notes Roselyn notified and voiced understanding. Shahrzad Anderson Ma They may double the dose of the clear a lax and see if this will be effective over the next 2-3 days Harsh Mcnair MD Daughter Roselyn called to report pt is having Daughter Roselyn calls and states the following: pt having constipation STOOL PATTERN OR FREQUENCY: Not certain when this started STRAINING: no BLOOD ON STOOL: no CHRONIC CONSTIPATION: yes has chronic constipation CHANGES IN DIET OR HYDRATION: has increased fluids MEDICATIONS: no LAXATIVES: was sick last week cold symptoms and being treated with OTC medications and they were using a wheel chair because pt was weak, but getting better CAUSE: has history of chronic constipation Medication : pt given 2 stool softeners in evening, prune juice in evening, 1/2 dose of metamucil twice a day, clear a lax twice a day was given Thursday, Thursday and Thursday (got out a small amount of stool) and Thursday. Daughter asking for recommendations on what pt should do. Daughter aware may need to bring pt in for an apt and if needed. Please advise shadia Dempsey documented in this encounter [facility] 10-03-2022 Miscellaneous Notes Mirabegron not covered by patient's insurance (per pharmacy) - request from pharmacy to order vibegron The following approved medication requests have been transmitted electronically. Requested Prescriptions Signed Prescriptions Disp Refills vibegron (GEMTESA) 75 mg tablet 90 tablet 1 Sig: Take 1 tablet by mouth once daily. Authorizing Provider: MARCELO MANCINI APRN.CNP documented in this encounter [facility] 10-01-2022 Note HNO ID: [id number] Author: Marcelo Mancini APRN.CNP Service: ? Author Type: Nurse Practitioner Type: Progress Notes Filed: 10/01/2022 1:41 PM Note Text: Per discussion w/ Dr. Bertha YUAN to discontinue oxybutynin and switch to mirabegron Orders placed Will ensure MC message is read- otherwise will reach out via phone to convey this change SOSA Cortez, RADIOLOGICAL ENGINEER-C, CNRN [facility] 10-01-2022 History of Present illness Narrative Per discussion w/ Dr. Bertha YUAN to discontinue oxybutynin and switch to mirabegron Orders placed Will ensure MC message is read- otherwise will reach out via phone to convey this change SOSA Cortez, RADIOLOGICAL ENGINEER-C, CNRN documented in this encounter [facility] 09-26-2022 Note HNO ID: [id number] Author: Marcelo Mancini APRN.CNP Service: ? Author Type: Nurse Practitioner Type: Progress Notes Filed: 09/26/2022 1:52 PM Note Text: Ramona Mike 1940 [id number] [address] [facility] [id number] September 26, 2022 [facility] VIRTUAL FOLLOW-UP NOTE This visit was conducted using audio + video elements. Accompanied by: daughter Roselyn Mike is a pleasant 82 year old female seen today for a follow up visit. 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 Patient was last seen on 05/21/22, at which time: -- patient saw Miryam Porter CNP for cognitive evaluation for increasing ST memory loss, repetition, increasing reliance on calendars/lists, difficulty w/ managing IADLs (has help at home) -- MOCA -- hx of NPH w/ VPS placement in 2020 Today, Ramona and her daughter Roselyn returns for a routine follow up visit. In the interim Ramona underwent Neuropsychological Eval w/ Dr. Wade on 07/11/22. This evaluation showed deficits in memory and executive functions, and declines from prior evaluation in 2019 in areas of letter fluency and encoding based memory. She did meet criteria for dementia. The pattern of her performance was felt to be most consistent w/ frontal-subcortical inefficiencies and may be related to her history of hydrocephalus, with some contribution from medical illness. Her profile was less concerning for Alzheimer's disease but could not be completely ruled out. She is taking Prevagen and they are not sure if they should continue it. She continues on Ditropan through her PCP and she does not have as many incontinence episodes during the day as she does at night. She has a lot of broken sleep due to her [id number] to the bathroom She is still living independently at home 30/03 caregivers. She does occasionally need assistance w/ bADLS Other interval history: Falls: negative Sleep: difficulty staying asleep due to nocturia, +CPAP for CHARLES Mood: occasionally verbalizes depressed statements but for the most part she remains in fairly good spirits ADL's requires assistance with the following ADL's: using household appliances, taking medications, grocery shopping, house cleaning, driving, and finances Driving?: No PAST MEDICAL HISTORY Diagnosis Date Adjustment disorder with depressed mood Cervical spondylosis Female stress incontinence Generalized osteoarthrosis, unspecified site General Osteoarthritis Neural foraminal stenosis of cervical spine Other and unspecified hyperlipidemia 08/03/2006 Other constipation Type II or unspecified type diabetes mellitus without mention of complication, not stated as uncontrolled Unspecified sleep apnea Uses CPAP Urge incontinence Urgency of urination SOCIAL HISTORY Social History Tobacco Use Smoking status: Never Smokeless tobacco: Never Vaping Use Vaping Use: Never used Substance Use Topics Alcohol use: Yes Comment: rare Drug use: No Social History reviewed by Marcelo Mancini APRN.CNP PATIENT-ENTERED DATA Patient-Reported 05/21/2022 Where are you currently living? 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 Yes Did you receive help completing this questionnaire? Yes If you received help, could you have completed this questionnaire on your own? No Activities of Daily Living (ADL) No flowsheet data found. PROMIS-10 PROMIS 10 07/19/2022 03/02/2022 In general, would you say your health is: Good Good In general, would you say your quality of life is: Good Good In general, how would you rate your physical health? Good Good In general, how would you rate your mental health, including your mood and your ability to think? Good Fair In general, how would you rate your satisfaction with your social activities and relationships? Good Fair To what extent are you able to carry out your everyday physical activities such as walking, climbing stairs, carrying groceries, or moving a chair? A little Moderately In general, please rate how well you carry out your usual social activities and roles. (This includes activities at home, at work and in your community, and responsibilities as a parent, child, spouse, employee, friend, etc.) Good Fair How would you rate your pain on average? 1 0 - No Pain How would you rate your fatigue on average? Mild Moderate How often have you been bothered by emotional problems such as feeling anxious, depressed or irritable? Rarely Sometimes PROMIS Adult Short Form-Global Health Score (Physical) 42.3 (Good) 44.9 (Good) PROMIS Adult Short Form-Global Health Score (Mental) 45.8 (Good) 38.8 (Fair) (more content not included)... [facility] 09-18-2022 Miscellaneous Notes Daughter called and notified, verbalized understanding. Daughter asking when to restart, told her to wait a couple of days then add things back slowly as tolerated. Understood. Afsaneh Cruz Ma I agree with holding the clearlax and stool softeners for a few days and see how she does. Harsh Mcnair MD Roselyn, daughter, reports patient is having xtra loose stools. Thursday patient had a stool accident and again today. Patient is taking clearlax, metamucil, and 2 stool softners at night. Asking which of these should patient stop taking and for how long? Advised daughter to hold the clearlax and stool softners until she hears back from provider. Please advise daughter. documented in this encounter [facility] 08-06-2022 Note HNO ID: [id number] Author: Vanessa Frye MD Service: ? Author Type: Physician Type: Progress Notes Filed: 08/06/2022 11:52 AM Note Text: Design Drafter offered: Patient declines. Ramona is a 82 year old who presents for an annual gynecologic exam without complaints. Postmenopausal: Yes HRT use: No. Last Pap: 09/17/2011 normal History of abnormal pap: No Last mammogram: 2020 normal History of abnormal mammogram: No Sexually active: No History of STDS: None Hot flashes: No Night sweats: No Vaginal dryness: No OB History T0 L3 SAB0 IAB0 Ectopic0 Multiple0 Live Births0 Positive Printer Operator History LMP: Postmenopausal Age at Menarche: Age at First : Age at Menopause: Positive Printer Operator History Comments: Sexual Activity: Not Currently; Male Contraception: Tubal Ligation PAST MEDICAL HISTORY Diagnosis Date Adjustment disorder with depressed mood Cervical spondylosis Female stress incontinence Generalized osteoarthrosis, unspecified site General Osteoarthritis Neural foraminal stenosis of cervical spine Other and unspecified hyperlipidemia 08/03/2006 Other constipation Type II or unspecified type diabetes mellitus without mention of complication, not stated as uncontrolled Unspecified sleep apnea Uses CPAP Urge incontinence Urgency of urination PAST SURGICAL HISTORY Procedure Laterality Date APPENDECTOMY BIOPSY BREAST OPEN INCISIONAL Bx of breast, incisionalx2 COLONOSCOPY FLX DX W/COLLJ SPEC WHEN PFRMD 10-18-03 Colonoscopy-per repeat in LIG/TRNSXJ FLP TUBE ABDL/VAG APPR UNI/BI Tubal ligation PAST SURGICAL HISTORY OF hemorrhoidectomy PAST SURGICAL HISTORY OF 05/29/2008 rt. hip replacement FAMILY HISTORY Problem Relation Age of Onset None Mother Diabetes Father other (CHF) Father Breast Cancer Maternal Grandmother SOCIAL HISTORY Social History Tobacco Use Smoking status: Never Smokeless tobacco: Never Vaping Use Vaping Use: Never used Substance Use Topics Alcohol use: Yes Comment: rare Drug use: No REVIEW OF SYSTEMS Abdomen: No abdominal pain, nausea, vomiting, diarrhea, or constipation. No bloating, early satiety, indigestion, or increased flatulence. Bladder: No dysuria, gross hematuria, urinary frequency, urinary urgency, or incontinence Breast: No breast lumps, nipple d/c, overlying skin changes, redness or skin retraction Allergies and current medication updated:No EXAM: BP 118/80 Ht 4' 11.5 (1.51m) Wt 174 lb 4.8 oz (79.1kg) BMI 34.63 kg/(m2). GENERAL: pleasant, female in no apparent distress HEENT: Normocephalic, atraumatic, mucus membranes moist, and no lesions NECK: Supple, full range of motion, no adenopathy, and thyroid normal DERMATOLOGY: Normal, without lesions, non-icteric, and non-hirsute BREAST: soft, non-tender, symmetric, no dominant mass, normal nipple-areolar complex, no lymphadenopathy, and no nipple discharge ABDOMEN: soft, non-tender, and no masses PELVIC: external genitalia normal, normal Bartholin's glands, urethra, [place]'s glands, no vulvar lesions, no cervical lesions, good vaginal support, physiologic discharge present, normal appearing perineal body and perianal region, atrophic changes BIMANUAL: uterus normal size, shape and consistency, no adnexal masses, and non-tender RECTOVAGINAL: deferred. NEURO: alert and oriented x3,exam grossly non-focal EXTREMITIES: normal ASSESSMENT/PLAN: 1) Health maintenance: Pap/HPV up to date. Mammogram ordered Mammogram up to date Nutrition, exercise and routine health maintenance exams reviewed. Calcium/Vitamin D supplementation information provided. BMD: ordered 2) reviewed follow up Vanessa Watson MD [facility] 08-06-2022 History of Present illness Narrative Design Drafter offered: Patient declines. Ramona is a 82 year old who presents for an annual gynecologic exam without complaints. Postmenopausal: Yes HRT use: No. Last Pap: 09/17/2011 normal History of abnormal pap: No Last mammogram: 2020 normal History of abnormal mammogram: No Sexually active: No History of STDS: None Hot flashes: No Night sweats: No Vaginal dryness: No OB History T0 L3 SAB0 IAB0 Ectopic0 Multiple0 Live Births0 Positive Printer Operator History LMP: Postmenopausal Age at Menarche: Age at First : Age at Menopause: Positive Printer Operator History Comments: Sexual Activity: Not Currently; Male Contraception: Tubal Ligation PAST MEDICAL HISTORY Diagnosis Date Adjustment disorder with depressed mood Cervical spondylosis Female stress incontinence Generalized osteoarthrosis, unspecified site General Osteoarthritis Neural foraminal stenosis of cervical spine Other and unspecified hyperlipidemia 08/03/2006 Other constipation Type II or unspecified type diabetes mellitus without mention of complication, not stated as uncontrolled Unspecified sleep apnea Uses CPAP Urge incontinence Urgency of urination PAST SURGICAL HISTORY Procedure Laterality Date APPENDECTOMY BIOPSY BREAST OPEN INCISIONAL Bx of breast, incisionalx2 COLONOSCOPY FLX DX W/COLLJ SPEC WHEN PFRMD 10-18-03 Colonoscopy-per repeat in LIG/TRNSXJ FLP TUBE ABDL/VAG APPR UNI/BI Tubal ligation PAST SURGICAL HISTORY OF hemorrhoidectomy PAST SURGICAL HISTORY OF 05/29/2008 rt. hip replacement FAMILY HISTORY Problem Relation Age of Onset None Mother Diabetes Father other (CHF) Father Breast Cancer Maternal Grandmother SOCIAL HISTORY Social History Tobacco Use Smoking status: Never Smokeless tobacco: Never Vaping Use Vaping Use: Never used Substance Use Topics Alcohol use: Yes Comment: rare Drug use: No REVIEW OF SYSTEMS Abdomen: No abdominal pain, nausea, vomiting, diarrhea, or constipation. No bloating, early satiety, indigestion, or increased flatulence. Bladder: No dysuria, gross hematuria, urinary frequency, urinary urgency, or incontinence Breast: No breast lumps, nipple d/c, overlying skin changes, redness or skin retraction Allergies and current medication updated:No EXAM: BP 118/80 Ht 4' 11.5 (1.51m) Wt 174 lb 4.8 oz (79.1kg) BMI 34.63 kg/(m^2). GENERAL: pleasant, female in no apparent distress HEENT: Normocephalic, atraumatic, mucus membranes moist, and no lesions NECK: Supple, full range of motion, no adenopathy, and thyroid normal DERMATOLOGY: Normal, without lesions, non-icteric, and non-hirsute BREAST: soft, non-tender, symmetric, no dominant mass, normal nipple-areolar complex, no lymphadenopathy, and no nipple discharge ABDOMEN: soft, non-tender, and no masses PELVIC: external genitalia normal, normal Bartholin's glands, urethra, [place]'s glands, no vulvar lesions, no cervical lesions, good vaginal support, physiologic discharge present, normal appearing perineal body and perianal region, atrophic changes BIMANUAL: uterus normal size, shape and consistency, no adnexal masses, and non-tender RECTOVAGINAL: deferred. NEURO: alert and oriented x3,exam grossly non-focal EXTREMITIES: normal ASSESSMENT/PLAN: 1) Health maintenance: Pap/HPV up to date. Mammogram ordered Mammogram up to date Nutrition, exercise and routine health maintenance exams reviewed. Calcium/Vitamin D supplementation information provided. BMD: ordered 2) reviewed follow up Vanessa Watson MD documented in this encounter [facility] 07-30-2022 Note HNO ID: [id number] Author: Harsh Mcnair MD Service: ? Author Type: Physician Type: Progress Notes Filed: 07/30/2022 2:41 PM Note Text: Chief Complaint Patient presents with: Follow Up HPI Ramona Mike is a 82 year old female who presents here today for Above Complaints. Here with HH nurse Marizol Hernandez. She has her daughters with her on the weekend, then HH nurse Thursday to Thursday all day. No bowel, Gi, or urinary issues. Taking Ditropan 5 mg daily. Lipid: Taking Zocor 40 mg daily. No chest pains, dizziness, or SOB. Try to watch diet, limit her sweets. No regular exercise regimen. DM: Checking BS once with FBS today of 165, normally runs 160-200 range. Denies hypoglycemic episodes. No Neuropathy sx. Is taking Januvia 100 mg daily, amaryl 4 mg daily, Metformin 500 mg 2 pills in AM and 2 pill in PM. Depression/HONG: doing well with Zoloft 100 mg, 2 pills once daily. Had some Neuro Psych eval early in the month which did show that her memory was declining some. Arthritis: pain stable with mobic 7.5 mg daily. Pt presented to [facility] ER on 07/23/22 with c/o nausea, vomiting, diarrhea. She had normal shuntogram,. Had CT abd/pelvis which showed no bowel obstruction or other acute abnormalities identified. The diarrhea and nausea have improved. Past medical history, appointments, medications, allergies reviewed. Previous Medical History PAST MEDICAL HISTORY Diagnosis Date Adjustment disorder with depressed mood Cervical spondylosis Female stress incontinence Generalized osteoarthrosis, unspecified site General Osteoarthritis Neural foraminal stenosis of cervical spine Other and unspecified hyperlipidemia 08/03/2006 Other constipation Type II or unspecified type diabetes mellitus without mention of complication, not stated as uncontrolled Unspecified sleep apnea Uses CPAP Urge incontinence Urgency of urination Previous Surgical History PAST SURGICAL HISTORY Procedure Laterality Date APPENDECTOMY BIOPSY BREAST OPEN INCISIONAL Bx of breast, incisionalx2 COLONOSCOPY FLX DX W/COLLJ SPEC WHEN PFRMD 10-18-03 Colonoscopy-per repeat in LIG/TRNSXJ FLP TUBE ABDL/VAG APPR UNI/BI Tubal ligation PAST SURGICAL HISTORY OF hemorrhoidectomy PAST SURGICAL HISTORY OF 05/29/2008 rt. hip replacement Family History FAMILY HISTORY Problem Relation Age of Onset None Mother Diabetes Father other (CHF) Father Breast Cancer Maternal Grandmother Patient Allergies ALLERGIES Allergen Reactions Penicillins Anaphylaxis Iodine Intolerance Current Medications Current Outpatient Medications on File Prior to Visit Medication Sig OTC NUTRITIONAL SUPPLEMENT once daily. Prevagen meloxicam (MOBIC) 7.5 mg tablet Take 1 tablet by mouth once daily. Take with food. glimepiride (AMARYL) 4 mg tablet Take 1 tablet by mouth daily with breakfast. SITagliptin (JANUVIA) 100 mg tablet Take 1 tablet by mouth once daily. simvastatin (ZOCOR) 40 mg tablet Take 1 tablet by mouth once daily. sertraline (ZOLOFT) 100 mg tablet Take 2 tablets by mouth once daily. oxybutynin XL (DITROPAN XL) 5 mg 24 hr tablet Take 1 tablet by mouth once daily. metFORMIN (GLUCOPHAGE) 500 mg tablet Take two tablets by mouth in the morning. Take two tablets by mouth with dinner. blood sugar diagnostic (Imagine K12 ULTRA TEST) test strip Test blood sugar 1 times daily. Dx Type 2 DM Controlled E11.9 Insulin: No. aspirin, enteric coated (ASPIRIN, ENTERIC COATED) 81 mg EC tablet Take 1 tablet by mouth once daily. Lactobacillus acidophilus (PROBIOTIC ORAL) Take by mouth once daily. glucosamine HCl/chondroitin romano (GLUCOSAMINE-CHONDROITIN ORAL) Take by mouth once daily. acetaminophen (TYLENOL) 325 mg tablet Take 2 tablets by mouth every 4 hours as needed. calcium carbonate 600 mg-cholecalciferol 200 units 600 mg-5 mcg (200 unit) tab Take 1 tablet by mouth once daily. Lancets (ACCU-CHEK SOFTCLIX LANCETS) lancets Test blood sugar(s) 1 times daily. Dx: Type 2 DM- Controlled E11.9 Insulin: No Cholecalciferol, Vitamin D3, 1,000 unit cap Take 1 capsule by mouth once daily. multivitamins(DAILY MULTIPLE TAB) Take one(1) tablet daily. STOOL SOFTENER 100 MG CAP Take 200 mg by mouth once daily. No current facility-administered medications on file prior to visit. Social History Social History Tobacco Use Smoking status: Never Smokeless tobacco: Never Vaping Use Vaping Use: Never used Substance Use Topics Alcohol use: Yes Comment: rare Drug use: No EXAM: BP 124/76 Pulse 74 Resp 16 Wt 78.5 kg (173 lb) BMI 33.79 kg/m? General Appearance: Well appearing, alert, in no acute distress, well-hydrated, well nourished.. Lungs: Lungs clear to auscultation. No wheezing, rhonchi, rales.. Heart: RRR without murmur, gallop, or rubs. No ectopy. Health Maintenance List COVID-19 VACCINE(5 - Booster for Moderna series) due on 09/14/2021 DILATED RETINAL EXA (more content not included)... [facility] 07-30-2022 History of Present illness Narrative Chief Complaint Patient presents with: Follow Up HPI Ramona Mike is a 82 year old female who presents here today for Above Complaints. Here with nurse Marizol Hernandez. She has her daughters with her on the weekend, then HH nurse Thursday to Thursday all day. No bowel, Gi, or urinary issues. Taking Ditropan 5 mg daily. Lipid: Taking Zocor 40 mg daily. No chest pains, dizziness, or SOB. Try to watch diet, limit her sweets. No regular exercise regimen. DM: Checking BS once with FBS today of 165, normally runs 160-200 range. Denies hypoglycemic episodes. No Neuropathy sx. Is taking Januvia 100 mg daily, amaryl 4 mg daily, Metformin 500 mg 2 pills in AM and 2 pill in PM. Depression/HONG: doing well with Zoloft 100 mg, 2 pills once daily. Had some Neuro Psych eval early in the month which did show that her memory was declining some. Arthritis: pain stable with mobic 7.5 mg daily. Pt presented to [facility] ER on 07/23/22 with c/o nausea, vomiting, diarrhea. She had normal shuntogram,. Had CT abd/pelvis which showed no bowel obstruction or other acute abnormalities identified. The diarrhea and nausea have improved. Past medical history, appointments, medications, allergies reviewed. Previous Medical History PAST MEDICAL HISTORY Diagnosis Date Adjustment disorder with depressed mood Cervical spondylosis Female stress incontinence Generalized osteoarthrosis, unspecified site General Osteoarthritis Neural foraminal stenosis of cervical spine Other and unspecified hyperlipidemia 08/03/2006 Other constipation Type II or unspecified type diabetes mellitus without mention of complication, not stated as uncontrolled Unspecified sleep apnea Uses CPAP Urge incontinence Urgency of urination Previous Surgical History PAST SURGICAL HISTORY Procedure Laterality Date APPENDECTOMY BIOPSY BREAST OPEN INCISIONAL Bx of breast, incisionalx2 COLONOSCOPY FLX DX W/COLLJ SPEC WHEN PFRMD 10-18-03 Colonoscopy-per repeat in LIG/TRNSXJ FLP TUBE ABDL/VAG APPR UNI/BI Tubal ligation PAST SURGICAL HISTORY OF hemorrhoidectomy PAST SURGICAL HISTORY OF 05/29/2008 rt. hip replacement Family History FAMILY HISTORY Problem Relation Age of Onset None Mother Diabetes Father other (CHF) Father Breast Cancer Maternal Grandmother Patient Allergies ALLERGIES Allergen Reactions Penicillins Anaphylaxis Iodine Intolerance Current Medications Current Outpatient Medications on File Prior to Visit Medication Sig OTC NUTRITIONAL SUPPLEMENT once daily. Prevagen meloxicam (MOBIC) 7.5 mg tablet Take 1 tablet by mouth once daily. Take with food. glimepiride (AMARYL) 4 mg tablet Take 1 tablet by mouth daily with breakfast. SITagliptin (JANUVIA) 100 mg tablet Take 1 tablet by mouth once daily. simvastatin (ZOCOR) 40 mg tablet Take 1 tablet by mouth once daily. sertraline (ZOLOFT) 100 mg tablet Take 2 tablets by mouth once daily. oxybutynin XL (DITROPAN XL) 5 mg 24 hr tablet Take 1 tablet by mouth once daily. metFORMIN (GLUCOPHAGE) 500 mg tablet Take two tablets by mouth in the morning. Take two tablets by mouth with dinner. blood sugar diagnostic (ONETOUCH ULTRA TEST) test strip Test blood sugar 1 times daily. Dx Type 2 DM Controlled E11.9 Insulin: No. aspirin, enteric coated (ASPIRIN, ENTERIC COATED) 81 mg EC tablet Take 1 tablet by mouth once daily. Lactobacillus acidophilus (PROBIOTIC ORAL) Take by mouth once daily. glucosamine HCl/chondroitin romano (GLUCOSAMINE-CHONDROITIN ORAL) Take by mouth once daily. acetaminophen (TYLENOL) 325 mg tablet Take 2 tablets by mouth every 4 hours as needed. calcium carbonate 600 mg-cholecalciferol 200 units 600 mg-5 mcg (200 unit) tab Take 1 tablet by mouth once daily. Lancets (ACCU-CHEK SOFTCLIX LANCETS) lancets Test blood sugar(s) 1 times daily. Dx: Type 2 DM- Controlled E11.9 Insulin: No Cholecalciferol, Vitamin D3, 1,000 unit cap Take 1 capsule by mouth once daily. multivitamins(DAILY MULTIPLE TAB) Take one(1) tablet daily. STOOL SOFTENER 100 MG CAP Take 200 mg by mouth once daily. No current facility-administered medications on file prior to visit. Social History Social History Tobacco Use Smoking status: Never Smokeless tobacco: Never Vaping Use Vaping Use: Never used Substance Use Topics Alcohol use: Yes Comment: rare Drug use: No EXAM: BP 124/76 Pulse 74 Resp 16 Wt 78.5 kg (173 lb) BMI 33.79 kg/m General Appearance: Well appearing, alert, in no acute distress, well-hydrated, well nourished.. Lungs: Lungs clear to auscultation. No wheezing, rhonchi, rales.. Heart: RRR without murmur, gallop, or rubs. No ectopy. Health Maintenance List COVID-19 VACCINE(5 - Booster for Moderna series) due on 09/14/2021 DILATED RETINAL EXAM due on 02/11/2022 URINE ALBUMIN:CREATININE RATIO due on 04/12/2022 DIABETIC FOOT EXAM due on 07/17/2022 HBA1C due on 10/16/2022 LDL CHOLESTEROL due on 07/16/2023 DTAP,TDAP,TD(4 - Td or Tdap) due on 04/15/2029 BONE DENSITY Completed INFLUENZA Completed ADVANCE DIRECTIVE DISCUSSION Completed SHINGRIX VACCINE Completed PNEUMOCOCCAL: 65+ Completed Data reviewed Care Everywhere Appointment on 07/16/2022 Component Date Value Protein, Total 07/16/2022 6.6 Albumin 07/16/2022 4.4 Calcium, Total 07/16/2022 9.7 Bilirubin, Total 07/16/2022 0.2 Alkaline Phosphatase 07/16/2022 74 AST 07/16/2022 20 ALT 07/16/2022 24 Glucose 07/16/2022 207 (A) BUN 07/16/2022 19 Creatinine 07/16/2022 0.97 (A) Sodium 07/16/2022 136 Potassium 07/16/2022 4.6 Chloride 07/16/2022 99 CO2 07/16/2022 26 Anion Gap 07/16/2022 11 Estimated Glomerular Cash* 07/16/2022 58 (A) Cholesterol, Total 07/16/2022 141 Triglyceride 07/16/2022 152 (A) HDL Cholesterol 07/16/2022 53 Non HDL Cholesterol 07/16/2022 88 Fasting Time 07/16/2022 14 VLDL Cholesterol 07/16/2022 30 (A) TC:HDL Ratio 07/16/2022 2.66 LDL Cholesterol 07/16/2022 58 LDL:HDL Ratio 07/16/2022 1.09 Hemoglobin A1C 07/16/2022 8.0 (A) Estimated Average Glucose 07/16/2022 183 WBC 07/16/2022 11.67 (A) RBC 07/16/2022 4.94 Hemoglobin 07/16/2022 13.9 Hematocrit 07/16/2022 44.1 MCV 07/16/2022 89.3 MCH 07/16/2022 28.1 MCHC 07/16/2022 31.5 RDW-CV 07/16/2022 13.3 Platelet Count 07/16/2022 208 MPV 07/16/2022 11.1 Absolute nRBC 07/16/2022 <0.01 ASSESSMENT/PLAN: 1. Hyperlipidemia, unspecified hyperlipidemia type - ICD9: 272.4, ICD10: E78.5 (primary diagnosis) - good control - Continue current medication. - LIPID PANEL BASIC - COMP METABOLIC PANEL 2. Essential hypertension, benign - ICD9: 401.1, ICD10: I10 - good control - Continue current medication(s) - Recommend home blood pressure monitoring, to bring results in on next visit - Goal of BP <140/90 - CBC 3. Female stress incontinence - ICD9: 625.6, ICD10: N39.3 Continue current medications. 4. Controlled type 2 diabetes mellitus without complication, without long-term current use of insulin (HCC) - ICD9: 250.00, ICD10: E11.9 Fair control - Continue current medications - HGB A1C - COMP METABOLIC PANEL - ALBUMIN/CREAT RATIO RND UR 5. Depressive disorder - ICD9: 311, ICD10: F32.A Continue current medications. 6. NPH (normal pressure hydrocephalus) (HCC) - ICD9: 331.5, ICD10: G91.2 Stable 7. Dementia without behavioral disturbance, psychotic disturbance, mood disturbance, or anxiety, unspecified dementia severity, unspecified dementia type (HCC) - ICD9: 294.20, ICD10: F03.90 Monitor Follow up in 6 months with labs prior I agree with the Chief Complaint, ROS, and Past Histories independently gathered by the clinical manager client support and the remaining scribed note accurately describes my personal service to the patient. Medical Decision Making: Problems: Low: Stable chronic illness Data: Unique test result(s) reviewed: 3+ Unique test(s) ordered: 3+ Risk: Moderate: Drug management Medical Decision Making Level: 4 - Moderate Harsh Mcnair MD The documentation for this note was completed by Shahrzad Anderson Ma acting as scribe for Harsh Mcnair MD. July 30, 2022 2:04 PM. Shahrzad Anderson Ma documented in this encounter [facility] 07-30-2022 Miscellaneous Notes LVM about appointment change per email documented in this encounter [facility] 07-22-2022 Miscellaneous Notes Noted I agree with the advice given Harsh Mcnair MD Pt's daughter Roselyn reports pt had diarrhea during the night, none since. Pt was unable to keep breakfast & lunch down today, vomited twice but none since. Denies fever, headache, sore throat or pain. Pt is urinating. Pt has 6 mth FU appt tomorrow & will keep appt if she if feeling better. Pt will continue with sips of tea & gatorade & will stay with a bland diet. Kaelyn Ochoa LPN documented in this encounter [facility] 07-15-2022 Miscellaneous Notes Pt daughter Roselyn notified. Shahrzad Anderson Ma Noted; I will review her meds at her appt next week and decide what would be best. The after visit summary should be available on [facility] Harsh Mcnair MD Pts daughter called in and reported that her insurance plan will no longer cover her Januvia. They will cover Tradjenta, but if provider what's Pt to stay on Januvia he will have to write a letter of medical necessity and send it in. Daughter also reports she won't be able to make it with Pt to her upcoming appointment and was asking if the appointment summary could be sent through her mother's Aurelianthart so that she could see what was gone over. Please call and advise. documented in this encounter [facility] 07-11-2022 Note HNO ID: [id number] Author: Brianne Wade, PhD Service: ? Author Type: Psychologist Type: Progress Notes Filed: 07/22/2022 8:57 AM Note Text: PATIENT NAME: Ramona Alonso Gridley DATE OF SERVICE: July 11, [address] [facility] NEUROPSYCHOLOGICAL EVALUATION EDUCATION: 13 OCCUPATION: [employer] (retired) HANDEDNESS: Right REFERRING: KYLAH Durán This neuropsychological assessment is part of a multidisciplinary evaluation conducted in the [facility]. The assessment consisted of a brief interview with the patient and her daughter (Roselyn), neurobehavioral examination, and administration of standardized neuropsychological assessments. This report is intended to be considered as only one part of the comprehensive examination. The results will be communicated to the referring physician via shared electronic medical record and in a consensus conference meeting. Of note, the current evaluation took place during the COVID-19 pandemic and thus several safety precautions were in place, including use of a facemask, which can limit the evaluation. ? RELEVANT BACKGROUND: Ramona Mike is an 82-year-old female with a history of hydrocephalus (s/p CONDUCTOR SYMPHONIC ORCHESTRA shunt April 2020), hypertension, hyperlipidemia, and diabetes who was referred for a neuropsychological evaluation due to cognitive concerns (05/21/22 MoCA= 16/30). The patient previously underwent neuropsychological evaluation with Mona Gonzalez, PHD on 02/14/2020, which revealed weaknesses in working memory, verbal fluencies, and visuospatial abilities. COGNITIVE CONCERNS: On interview, the patient and her daughter reported an approximately 1-2 year history of cognitive concerns with a declining course. Specific concerns include poor recall for conversations and recent events. She is repetitious in speech. She requires reminders for upcoming appointments. Her daughter described instances of perseverations, including that she continually asked if she had voted, though she had already submitted an absentee ballot a couple days prior. She is more indecisive and has difficulty with multitasking. Activities of Daily Living: Resides in a house with 24-hour caregiver assistance. Hygiene: Occasionally requires assistance with bathing. Independent with dressing and toileting. Gore Maker: Reliant on daughters and caregivers . Appointments: Reliant on her daughter . Medications: Reliant on her daughters and caregivers . Finances: Reliant on her daughter . They noticed math errors. Driving: Discontinued last summer. MEDICAL HISTORY: See records for full review. Relevant diagnoses include hydrocephalus (s/p CONDUCTOR SYMPHONIC ORCHESTRA shunt April 2020), hypertension, hyperlipidemia, and diabetes. The patient reported no history of head injury with loss of consciousness, stroke, or seizure. Review of select systems is notable for: Hearing: Reduced. Gait: uses a walker due to imbalance. Falls are variable and were previously once per week, which occurred a few months ago. Sleeps 7-8 hours per night. She sets an alarm every few hours to use the bathroom to avoid incontinence. She has a history of sleep apnea and is generally compliant with her CPAP, though it was noted that they occasionally find her without the CPAP in the morning. Daytime fatigue with occasional daytime naps. Substance use: No current use of alcohol or recreational drugs. No history of alcohol or drug abuse. Pertinent negatives: concerns with vision, tremor, chronic pain, or headaches. Recent Neurological workup revealed: Head CT at outside hospital (02/21/22): Interval right frontal CONDUCTOR SYMPHONIC ORCHESTRA shunt catheter. There is no other significant interval change when compared to the previous examination. Head CT (08/23/2020): Stable positioning of a right frontal approach CONDUCTOR SYMPHONIC ORCHESTRA shunt catheter with slight improvement in moderate supratentorial ventriculomegaly. No acute intracranial findings. Medication List: Current Outpatient Medications on File Prior to Visit Medication Sig OTC NUTRITIONAL SUPPLEMENT once daily. Prevagen meloxicam (MOBIC) 7.5 mg tablet Take 1 tablet by mouth once daily. Take with food. glimepiride (AMARYL) 4 mg tablet Take 1 tablet by mouth daily with breakfast. SITagliptin (JANUVIA) 100 mg tablet Take 1 tablet by mouth once daily. simvastatin (ZOCOR) 40 mg tablet Take 1 tablet by mouth once daily. sertraline (ZOLOFT) 100 mg tablet Take 2 tablets by mouth once daily. oxybutynin XL (DITROPAN XL) 5 mg 24 hr tablet Take 1 tablet by mouth once daily. metFORMIN (GLUCOPHAGE) 500 mg tablet Take two tablets by mouth in the morning. Take two tablets by mouth with dinner. blood sugar diagnostic (ONETOUCH ULTRA TEST) test strip Test blood sugar 1 times daily. Dx Type 2 DM Controlled E11.9 Insulin: No. aspirin, enteric coated (ASPIRIN, ENTERIC COATED) 81 mg EC tablet Take 1 tablet by mouth o (more content not included)... [facility] 07-11-2022 History of Present illness Narrative PATIENT NAME: Ramona Alonso Gridley DATE OF SERVICE: July 11, [address] [facility] NEUROPSYCHOLOGICAL EVALUATION EDUCATION: 13 OCCUPATION: [employer] (retired) HANDEDNESS: Right REFERRING: KYLAH Durán This neuropsychological assessment is part of a multidisciplinary evaluation conducted in the [facility]. The assessment consisted of a brief interview with the patient and her daughter (Roselyn), neurobehavioral examination, and administration of standardized neuropsychological assessments. This report is intended to be considered as only one part of the comprehensive examination. The results will be communicated to the referring physician via shared electronic medical record and in a consensus conference meeting. Of note, the current evaluation took place during the COVID-19 pandemic and thus several safety precautions were in place, including use of a facemask, which can limit the evaluation. ? RELEVANT BACKGROUND: Ramona Mike is an 82-year-old female with a history of hydrocephalus (s/p CONDUCTOR SYMPHONIC ORCHESTRA shunt April 2020), hypertension, hyperlipidemia, and diabetes who was referred for a neuropsychological evaluation due to cognitive concerns (05/21/22 MoCA= 16/30). The patient previously underwent neuropsychological evaluation with Mona Gonzalez, PHD on 02/14/2020, which revealed weaknesses in working memory, verbal fluencies, and visuospatial abilities. COGNITIVE CONCERNS: On interview, the patient and her daughter reported an approximately 1-2 year history of cognitive concerns with a declining course. Specific concerns include poor recall for conversations and recent events. She is repetitious in speech. She requires reminders for upcoming appointments. Her daughter described instances of perseverations, including that she continually asked if she had voted, though she had already submitted an absentee ballot a couple days prior. She is more indecisive and has difficulty with multitasking. Activities of Daily Living: Resides in a house with 24-hour caregiver assistance. Hygiene: Occasionally requires assistance with bathing. Independent with dressing and toileting. Gore Maker: Reliant on daughters and caregivers . Appointments: Reliant on her daughter . Medications: Reliant on her daughters and caregivers . Finances: Reliant on her daughter . They noticed math errors. Driving: Discontinued last summer. MEDICAL HISTORY: See records for full review. Relevant diagnoses include hydrocephalus (s/p CONDUCTOR SYMPHONIC ORCHESTRA shunt April 2020), hypertension, hyperlipidemia, and diabetes. The patient reported no history of head injury with loss of consciousness, stroke, or seizure. Review of select systems is notable for: Hearing: Reduced. Gait: uses a walker due to imbalance. Falls are variable and were previously once per week, which occurred a few months ago. Sleeps 7-8 hours per night. She sets an alarm every few hours to use the bathroom to avoid incontinence. She has a history of sleep apnea and is generally compliant with her CPAP, though it was noted that they occasionally find her without the CPAP in the morning. Daytime fatigue with occasional daytime naps. Substance use: No current use of alcohol or recreational drugs. No history of alcohol or drug abuse. Pertinent negatives: concerns with vision, tremor, chronic pain, or headaches. Recent Neurological workup revealed: Head CT at outside hospital (02/21/22): Interval right frontal CONDUCTOR SYMPHONIC ORCHESTRA shunt catheter. There is no other significant interval change when compared to the previous examination. Head CT (08/23/2020): Stable positioning of a right frontal approach CONDUCTOR SYMPHONIC ORCHESTRA shunt catheter with slight improvement in moderate supratentorial ventriculomegaly. No acute intracranial findings. Medication List: Current Outpatient Medications on File Prior to Visit Medication Sig OTC NUTRITIONAL SUPPLEMENT once daily. Prevagen meloxicam (MOBIC) 7.5 mg tablet Take 1 tablet by mouth once daily. Take with food. glimepiride (AMARYL) 4 mg tablet Take 1 tablet by mouth daily with breakfast. SITagliptin (JANUVIA) 100 mg tablet Take 1 tablet by mouth once daily. simvastatin (ZOCOR) 40 mg tablet Take 1 tablet by mouth once daily. sertraline (ZOLOFT) 100 mg tablet Take 2 tablets by mouth once daily. oxybutynin XL (DITROPAN XL) 5 mg 24 hr tablet Take 1 tablet by mouth once daily. metFORMIN (GLUCOPHAGE) 500 mg tablet Take two tablets by mouth in the morning. Take two tablets by mouth with dinner. blood sugar diagnostic (Red GuruTOUCH ULTRA TEST) test strip Test blood sugar 1 times daily. Dx Type 2 DM Controlled E11.9 Insulin: No. aspirin, enteric coated (ASPIRIN, ENTERIC COATED) 81 mg EC tablet Take 1 tablet by mouth once daily. Lactobacillus acidophilus (PROBIOTIC ORAL) Take by mouth once daily. glucosamine HCl/chondroitin romano (GLUCOSAMINE-CHONDROITIN ORAL) Take by mouth once daily. acetaminophen (TYLENOL) 325 mg tablet Take 2 tablets by mouth every 4 hours as needed. calcium carbonate 600 mg-cholecalciferol 200 units 600 mg-5 mcg (200 unit) tab Take 1 tablet by mouth once daily. Lancets (ACCU-CHEK SOFTCLIX LANCETS) lancets Test blood sugar(s) 1 times daily. Dx: Type 2 DM- Controlled E11.9 Insulin: No Cholecalciferol, Vitamin D3, 1,000 unit cap Take 1 capsule by mouth once daily. multivitamins(DAILY MULTIPLE TAB) Take one(1) tablet daily. STOOL SOFTENER 100 MG CAP Take 200 mg by mouth once daily. No current facility-administered medications on file prior to visit. Family neurological history: None reported. PSYCHIATRIC HISTORY: The patient and her daughter reported a longstanding history of depression that has been treated with zoloft for many years. She reported her current mood is, ok. She endorsed occasional depression that comes and goes. They reported moments of anxiety associated with perseverations. She reported occasional suicidal ideation with no plan/intent. She reported no auditory/visual hallucinations. PSYCHOSOCIAL HISTORY: Education: Completed a high school degree and 1 year of secretarial school with no early attention/learning concerns. Occupation: Retired approximately 20 years ago. 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 Family: The patient was 5 years ago. She has 3 children. Living situation: Resides in a house with 24/7 caregiver support. BEHAVIORAL OBSERVATIONS: The patient was accompanied by her daughter (Roselyn). She was oriented to most aspects of person, place, and time though initially stated Vinay as the current president and later stated Joao. Vision and hearing were adequate for testing purposes. She presented in a wheelchair and used a walker for shorter distances. Speech was fluent with no observed word-finding problems or paraphasias in casual conversation. Thought processes were logical. Affect appeared flat. Her daughter provided much of her history. Task engagement appeared adequate based on embedded effort measures and the current results are valid for interpretation. COGNITIVE RESULTS: Premorbid abilities are estimated to fall in the average range based on education/occupational histories and word reading. Memory: Immediate and delayed recall for stories were both extremely low with 0% retention at delayed recall. Delayed recognition was moderately low. Learning of a word list presented over repeated trials was extremely low (2,2,2 words encoded over the 3 learning trials, respectively). Delayed recall of the list was extremely low (0 words). Delayed recognition was extremely low (correctly identified 10/12 targets and incorrectly endorsed 4 false positives). Learning of designs presented over repeated trials was extremely low. Delayed recall was extremely low. Delayed recognition was moderately low. Attention/working memory: Overall digit repetition was low average; forward span was average, backward span was average, and sequencing span was low average. Processing speed: Number to symbol transcoding was low average. Visual scanning was extremely low. Speeded color naming and word reading were low average and average, respectively. Executive functions: Inhibition of an overlearned response was average for completion time but extremely low for number of errors. She was unable to complete a similar task with set-shifting demands. Divided attention was discontinued. Everyday problem solving was moderately low. Verbal abilities: Verbal abstraction was low average. Object naming was average. Letter and category fluencies were extremely low and low average, respectively. Visuospatial abilities: Pattern recognition was low average. Judgment of line angles was moderately low. Simple figure copy was grossly intact with an isolated error on intersecting shapes (faisal a square instead of a allie). Mood: The patient endorsed minimal levels of depression (GDS=7). IMPRESSIONS/SUMMARY Abnormal cognitive profile with deficits in memory and executive functions. Relative to 2020, declines in letter fluency and encoding-based memory with a stable deficit in memory retention. Dementia. Hydrocephalus, vascular risks. Ramona Mike is an 82-year-old female with a history of hydrocephalus (s/p CONDUCTOR SYMPHONIC ORCHESTRA shunt April 2020), hypertension, hyperlipidemia, and diabetes who presents with a 1-2 year history of cognitive concerns with a declining course. She previously underwent neuropsychological evaluation with Mona Gonzalez, PHD on 02/14/2020, which revealed weaknesses in working memory, verbal fluencies, and visuospatial abilities. Functionally, she requires 24/7 caregiver support and is functionally reliant on others for select basic ADLs (I.e. bathing) and all instrumental ADLs. Results of neuropsychological testing revealed an abnormal cognitive profile with most notable deficits in memory and executive functions. Specifically, her memory profile revealed deficits at the stages of learning and retention with mild benefit from recognition cues. Within executive functions, she demonstrated deficits in divided attention, inhibition, and everyday problem solving. Consistent with executive dysfunction, letter fluency was poor while all other language testing was intact. Visuospatial abilities were a weakness. Otherwise, attention and processing speed were grossly within age-based expectations (low average). Relative to her 2019 evaluation, she demonstrated declines in letter fluency (low average to extremely low) and encoding of verbal information (low average to extremely low). Within memory, retention was a stable deficit from 2020 (0% retention on all tasks). Recognition scores were also lower, but this may be influenced by worsened encoding of the information. All other scores were stable. The patient currently meets criteria for dementia based on the presence of cognitive weakness in functional dependence. The pattern of her performances is most consistent with frontal-subcortical systems inefficiencies. Etiology may be related to her history of hydrocephalus. Additionally, her medical history (I.e. diabetes, heart disease) places her at risk for vascular dementia. Her cognitive profile was less concerning for Alzheimer's disease, though this cannot be entirely ruled out. Brain MRI would be helpful to assess the presence of white matter disease and regional atrophy patterns, though it is unclear if this is a possibility due MRI safety contraindications (defer to medical providers). Mood may be contributory, though she is endorsing less depression on the current evaluation compared to 2020. RECOMMENDATIONS Daily activities: To ensure safety, the patient's family is encouraged to monitor medication management, use of appliances, etc. Healthy aging practices to maintain cognitive functioning and promote overall wellness: Cognitive: Engage in cognitively stimulating activities that challenge and aid in learning (e.g., reading, puzzle games) while cultivating particular interests. Social: Reconnect and/or maintain relationships with family and friends by scheduling regular meeting times and planned activities around a common interest. Engage in meaningful community activities by volunteering or joining a community group or club. Physical: Regular physical exercise (e.g., walking, stretching), to the extent possible, can bolster cardiovascular health and may provide relief from or prevent worsening of symptoms of chronic pain, arthritis, and depression. Nutrition: Consume a balanced diet of nutrient-dense foods, while avoiding highly sweet, salty, and processed foods. Sleep: Establish a sleep routine waking and going to bed at similar times attaining 7-9 hours of sleep each night. OVERVIEW The graph below shows performance in different areas of cognitive function. The shaded area in the middle represents average range performance for individuals of similar age. Very Superior Superior High Average Average X Low Average X X X X Moderately Low X X Extremely Low X X Letter Fl Estimated IQ Learning Recall Recognition Attention Processing Speed Executive Language Visuospatial Memory *see description This table should not be presented separate from the Neuropsychological Evaluation Report dated July 11, 2022. The table is intended to serve as a summary of the data and may not include each individual test score derived. See 'Test Results' and 'Impressions/Summary' section for a comprehensive discussion of all test scores. The current evaluation was performed in the context of medical care and in response to specific internal referral question. It is not meant to constitute a legal or disability evaluation. This report is meant to be considered as only one part of the comprehensive examination. The results will be communicated to the referring physician via shared electronic medical record. Brianne Wade, Ph.D. Staff Neuropsychologist Time testing and scoring (stitching machine setter): 2.5 hours Time completing additional tests, analyzing, interpreting and incorporating other available medical information, clinical data review, and report writing (by neuropsychologist): 3 hours Tests Administered: [place] Naming Test Brief Visuospatial Memory Test-Revised Controlled Oral Word Association Test DKEFS Color-Word Interference Geriatric Depression Scale Reed Verbal Learning Test Judgment of Line Orientation- Short Form Test of Practical Judgment [place] Making Test WAIS-IV subtests: Coding, Digit Span, Matrix Reasoning, Similarities WMS-IV Logical Memory WRAT-IV Reading documented in this encounter [facility] 05-21-2022 Note HNO ID: [id number] Author: Jose Porter APRN.COMMERCIAL STRIPPER Service: ? Author Type: Nurse Practitioner Type: Progress Notes Filed: 05/22/2022 1:35 PM Note Text: Ramona Mike 1940 May 21, 2022 Referral Source: SELF Phone: N/A Fax: [facility] INITIAL PATIENT EVALUATION IDENTIFYING INFORMATION Ramona Mike is a 82 year old white, female who presents to [facility] for Cognitive changes and Memory loss. Patient is accompanied by and information obtained from daughter Roselyn and available records in the system. Ramona Mike has a past medical history significant for hydrocephalus with CONDUCTOR SYMPHONIC ORCHESTRA shunt implanted on 04/13/2020. She is a patient of [facility] and is in the process of weaning off sinemet due to dizziness. Other medical hx includes HPL, HTN, DM2. and past neuropsychiatric history of depression. She was put on Sinemet because it was unclear if her symptoms were due to Parkinsons or NPH, she is no longer taking the Sinemet and her episodes of dizziness have largely resolved. HISTORY OF PRESENT ILLNESS Onset and progression: Even before shunt was placed patient would sometimes forget how to get somewhere or where she was going. Struggling with names, calling people by the wrong name. Forgetting recent conversations. No insight. Patient and daughter endorse Ramona has had the following ongoing changes which began approximately 2019 years ago and have gradually worsened: Neuropsychiatric symptoms: ST Memory: Patient/family report Ramona has difficulty with remembering details of recent events and conversations, difficulty remembering names of familiar people or places, and not sure if she is more reliant on calendars and lists. Patient has some increased difficulty misplacing things around the house. Patient does repeat statements/ask the same question over and over and has increased difficulty with learning new things. LT Memory: Patient/family report Ramona has less dificulty remembering distant events from the past like childhood, previous employment, wedding, etc. Orientation: Patient/family report that she has some difficulty knowing day, month, year, or day of the week. Does patient still drive? No Prior to stopping driving she did have episodes where she would get lost or forget where she was going. Patient has not ever become disoriented/lost in own home or another familiar location but does endorse difficulty with time relationships. Speech/Language: Patient endorses difficulty finding the right word to use. She denies substituting the wrong word for something, and endorses difficulty completing a sentence because of forgetting words or losing their train of thought. Patient denies stuttering or difficulty in fluency or pronunciation of words, difficulty following a conversation (language comprehension)? Yes difficulty reading? Yes difficulty in writing? Yes and reports change in her handwriting Parkinsonism: Tremor/Bradykinesia/Rigidity/Freez ing: Bradykinesia (slow movement) and Postural Instability (Impaired Balance and Coordination) Falls:positive Balance: problem with balance Uses walker in her home and out. Balance is improved since shunt placed but gait is a lot slower. Visuospatial functions: Patient denies difficulty with spatial functioning such as having trouble getting in or out of a chair, reaching out for a door knob, visual scanning /reading (finding the beginning of a sentence or paragraph)? Executive functioning: Able to start a task and stay focused until completion? difficulty Able to organize, plan, and prioritize? difficulty Able to handle small sums of money like calculating time or calculating a tip? difficulty Make a simple purchase? difficulty Balance checkbook, pay bills, make a more complicated financial transaction? difficulty Any change in general ability to handle and solve problems? difficulty Able to handle a household emergency? difficulty Call 911? difficulty Mood: Patient describes her mood as ok Depression/dysphoria: Have you felt down , sad , or hopeless in past 2 weeks?: Yes Have you felt little interest or pleasure in doing things?: No Patient and daughter report the following symptoms: increased frustration, denies irritability Behavior: Agitation: Normal activity Aggression: No Anxiety: normal/none Irritability: No Lability: No Apathy/indifference: No Disinhibition/socially inappropriate behavior/change in personality: No Psychosis: Delusions: None Hallucinations: None Present SI/HI/PDW: No Obsessions, compulsions, or hoarding behaviors: No Sleep: described as normal, feels rested upon waking, averages 9-10 hours per night. Up every two hours for restroom Daytime napping? Yes Nighttime sleep behaviors, talking in your sleep, acting out dreams? No Snoring? Yes, has CPAP, uses every nig (more content not included)... [facility] 03-06-2022 History of Present illness Narrative Summary: [id number] [facility] follow up IRB#: [id number] Vending Machine Assembler: Dr. David Dorsey MD Study Name: [facility] Registry: Characterizing Patient Populations in the Adult Hydrocephalus Clinical Research Network Study Visit Conducted by: Roya Mireles Date: March 06, 2022 Patient Patient seen for follow up visit in office on 03/06/2022. Informed consent and eligibility reviewed. Signed copy of consent provided to patient. [place] Cognitive Assessment, symbol digit modalities test, BDI-II, Shireen ADL/IADL, and OAB-q short form questionnaire completed with patient. Head circumference obtained. All questions pertaining to the study answered to the patient's satisfaction. Daughter also privately told me that another provider suspects signs of dementia. She forgot to mention this to anyone else today, so I passed that information along to Ramírez Leavitt who said he is going to reach out. Roya Mireles, Research Coordinator documented in this encounter [facility] 03-06-2022 History of Present illness Narrative CC: CONDUCTOR SYMPHONIC ORCHESTRA shunt f/u HPI: Mrs Mike comes to clinic today for surgical f/u. She had a CONDUCTOR SYMPHONIC ORCHESTRA shunt implanted on 04/13/20 with Certas valve. Ramona was last seen on 08/23/20 where she only admitted mild improvement of gait. At last visit her Certas valve was adjusted from 5 to 4. Since last visit her ambulation has continued to improve and she is taking long stable steps while using a walker. Ramona does have continued urinary urgency and must get up multiple times at night to use the bathroom but she is happy with current urinary state. There has been a continued slow decline in cognition without acute changes. Mrs Mike was recently admitted at OSH for dizziness and was treated for dehydration. CT brain and shunt series showed no abnormality. Focused Exam: Right frontal shunt site examined, no erythema, edema, warmth, or drainage noted. Incisions well approximated without evidence of wound dehiscence. Shunt is palpable. Higher integrative function: Oriented to person, place and time, speech clear and fluent, fundi of knowledge good, accurate naming of objects CN II: Visual acuity normal, Visual alejandra full to confrontation CN III, IV, : Pupils equal, round and reactive to light, full extraoccular movements without nystagmus CN V: Facial sensation intact bilaterally to fine touch and pinprick, masseter 5/5 CN VII: Facial muscles symmetric and strong CN VIII: Hears finger rub well bilaterally CN IX: Not tested CN X: Palate elevates symmetrically CN XI: Full strength shoulder shrug bilaterally CN XII: Tongue protrusion full and midline Motor: muscle strength 5/5 both upper and lower extremities, arm swing normal, no drift present, muscle tone normal and without evidence of atrophy Cerebellar: Stable gait using a walker Impression: Mrs Ramona Mike is a pleasant 80 year old female with a history of NPH. She had CONDUCTOR SYMPHONIC ORCHESTRA shunt implantation on 04/13/20 with Certas valve. At last visit her valve was adjusted from 5 to 4 with noticeable improvement of gait and urinary control. She is taking longer, more stable steps when using walker and is happy with current gait. Ramona does admit continued urinary urgency and must get up multiple times at night but does admit this is an improvement. She is happy with her current shunt setting. Ramona was recently admitted with dizziness and vomiting at OSH. Follow up shunt imaging showed no abnormality with stable enlarged ventricles and CONDUCTOR SYMPHONIC ORCHESTRA shunt in place. She was treated for dehydration with improvement of symptoms. Mrs Mike is following with Dr Mendoza who is weaning Sinemet in hopes to also improve dizziness. Plan for follow up in 6-[address] brain[address] Weaning off sinemet due to dizziness Plan: Shunt information Shunt type: Certas Initial settin New settin Ramírez Leavitt PA-C documented in this encounter [facility] 03-03-2022 History of Present illness Narrative March 03, 2022 Collins Mendoza MD [facility] [address] [place] [address] Harsh Mcnair [address] [place] [address] VIRTUAL VISIT Ramona Mike : 1940 Interval History: Ramona Mike is a 81 year old woman with NPH, s/p CONDUCTOR SYMPHONIC ORCHESTRA shunt placed in April 2020, being seen Virtually for follow up. The patient is seen with a daughter. A few weeks ago, she went to the Emergency Department for being dizzy and lightheaded. She became weak and nauseated. Her family tried to get her to drink, but this did not help. This led to a fall, followed the next day by nausea and vomiting. They tried to push fluids; check sugar, BP, etc. but all were OK. So they took her to the ED. There, her BP was found to be 180/88. However, she was found to be orthostatic. Shunt series and CT were OK. No UTI was found. She was admitted. It seems that the primary treatment was IV hydration. She is now doing better. It was discussed that she probably does not need the Sinemet, and that this might be contributing to the lightheadedness. As far as older history goes, since she never was seen in this office again after her shunt placement: Immediately after the shunt was placed, she improved immensely. She feeds herself but may need help with cutting meat; other tasks are independent. It was therefore never discussed [id number] whether the Sinemet was still necessary. Allergies: ALLERGIES Allergen Reactions Penicillins Anaphylaxis Iodine Intolerance Current Medications: meloxicam (MOBIC) 7.5 mg tablet Take 1 tablet by mouth once daily. Take with food. glimepiride (AMARYL) 4 mg tablet Take 1 tablet by mouth daily with breakfast. SITagliptin (JANUVIA) 100 mg tablet Take 1 tablet by mouth once daily. simvastatin (ZOCOR) 40 mg tablet Take 1 tablet by mouth once daily. sertraline (ZOLOFT) 100 mg tablet Take 2 tablets by mouth once daily. carbidopa-levodopa (SINEMET 25-100) 25-100 mg per tablet 1 tablet in the AM, 0.5 tablets in the middle of the day, 1 tablet in the PM oxybutynin XL (DITROPAN XL) 5 mg 24 hr tablet Take 1 tablet by mouth once daily. metFORMIN (GLUCOPHAGE) 500 mg tablet Take two tablets by mouth in the morning. Take two tablets by mouth with dinner. blood sugar diagnostic (Red GuruTOUCH ULTRA TEST) test strip Test blood sugar 1 times daily. Dx Type 2 DM Controlled E11.9 Insulin: No. aspirin, enteric coated (ASPIRIN, ENTERIC COATED) 81 mg EC tablet Take 1 tablet by mouth once daily. Lactobacillus acidophilus (PROBIOTIC ORAL) Take by mouth once daily. glucosamine HCl/chondroitin romano (GLUCOSAMINE-CHONDROITIN ORAL) Take by mouth once daily. acetaminophen (TYLENOL) 325 mg tablet Take 2 tablets by mouth every 4 hours as needed. calcium carbonate 600 mg-cholecalciferol 200 units (CALCIUM 600 + D,3,) 600 mg(1,500mg) -200 unit tab Take 1 tablet by mouth once daily. Lancets (ACCU-CHEK SOFTCLIX LANCETS) lancets Test blood sugar(s) 1 times daily. Dx: Type 2 DM- Controlled E11.9 Insulin: No Cholecalciferol, Vitamin D3, 1,000 unit cap Take 1 capsule by mouth once daily. multivitamins(DAILY MULTIPLE TAB) Take one(1) tablet daily. STOOL SOFTENER 100 MG CAP Take 200 mg by mouth once daily. Physical Examination: General Description of Patient: Well appearing, comfortable There were no vitals taken for this visit. because this is Virtual FOCUSED NEUROLOGIC EXAMINATION: Mental Status: Alert and Oriented to person, place, and date Cranial Nerves: clear voice; EOMI; symmetric face Motor: no tremor Coordination: no action tremor Gait: walks with walker; good (deliberate) pace; good posture Assessment: Ms. Mike is a 81 year old woman with NPH, s/p shunt placement almost 2 years ago. She had a bout of dizziness that seems to have been due to dehydration. As a complicating factor, she is still taking carbidopa/levodopa - this can be discontinued. However, it should be evaluated whether the removal of this medicine allows her functioning to slow down (presumably she will be fine, but if not, it may need to be returned). She should of course go ahead and have her shunt evaluated. Plan: 1) slowly wean off of the Sinemet - then pay attention to hand functioning and overall speed of functioning 2) go ahead with shunt evaluation 3) hydration - water, Gatorade, electrolytes 4) exercise Follow Up: Ms. Mike will follow up in 1 year for an office visit. Diagnostic differential, prognosis, and treatment plan discussed with the patient and her adult daughter. Level of service: Est level 4 (30-39 min). Time spent 30 min on the day of service, which included preparing to see the patient, [id number] patient care, completing clinical documentation, obtaining and/or reviewing separately obtained history, performing a medically appropriate examination, counseling and educating the patient/family/caregiver and ordering medications, tests, or procedures. Thank you for including me in the care of this interesting patient. Collins Mendoza MD Staff Neurologist [facility] Cc: documented in this encounter [facility] 03-03-2022 History of Present illness Narrative Transitional Care Management TCM Eligibility Documentation The following information was gathered during the initial Patient Outreach Encounter. Date of Outreach: 02/25/2022 02/25/2022 Outreach Attempt 1: Contact Made - Date of Discharge 02/24/2022 02/24/2022 Some recent data might be hidden Provider Documentation Ramona Mike is a 81 year old female here today for a follow up from recent hospitalization. I have reviewed the patient's hospital course including discharge summary, discharge medications and follow up needs with the patient and any family members present at today's visit. HPI Pt here today for a 7 day TCM. Pt here today with her daughterRoselyn for a [facility] ED discharge on 02/24/22. Daughter states that the week leading up to her admission, pt was having lightheadedness, dizziness, nausea and vomiting. Daughter was concerned with the hot weather, this was causing dehydration, so they made sure she stayed in AC and pushed fluids. Pt has post nasal drip, so they used antihistamines thinking this was causing her dizziness. She then started with nausea/vomiting on , 02/20/22. Daughter became concerned that this may be due to her shunt not working properly. Called into the office and pt was referred to [facility] ED. Pt admitted. Pt has a VV with Neuro this afternoon and , 03/06 a shunt f/u to make sure this is working properly. Pt did have a series of imaging done while at the hospital. They were unable to perform an MRI due to the shunt. Since d/c, daughter, Roselyn states it was a little rough when she was d/c but has improved. Pt denies feeling any nausea or vomiting. Notes some lightheadedness with bending over to put on shoes. She has been told when getting up to slowly get up and to move slowly and slide to the edge and wait until symptoms resolve. Notes she has slid out of bed this way and took a tumble and once out of her wheelchair. Pt states appetite is fine, needs to improve her fluid intake. Pt had no medication changes other then weaning off of Sinemet 25-100 mg, 1 tab po in the am and 0.5 tab pm. [facility] Hospitalist was uncertain why she was being treated with Sinemet after a shunt was placed. They will talk to Dr. Mendoza about this, this afternoon. BP - Elevated BP when pt was admitted. She was treated with Norvasc while admitted 1-2 times but not sent home with medication as they are unsure if she has true HTN issues. Pt states that she's not had BP checked since she's been home. [facility] PT came out last week as they felt she would benefit from this. On , she was not able to do too much due to feeling lightheaded/dizziness. Has 3 ladies that they work with privately who come in and care for her 3 days a week. The 3 daughters alternate in weekend care. Notes some slips off the edge of bed and wheelchair. Pt uses walker around home DM - Unsure what her sugars have been, daughter states that she checks them daily, doesn't believe they've been out of her normal. Pt on current regime of Amaryl 4 mg 1 tab po once daily, Januvia 100 mg 1 tab po once daily and Metformin 500 mg 2 tabs po bid. SUMMARY: -Pt discharged from [facility] on 02/24/22 -Admitted for: lightheadedness, dehydration, dizziness, orthostatic hypotension, unable to ambulate Below copied from Care Everywhere: Narrative 02/21/22: 81-year-old female history of normal pressure hydrocephalus with a shunt and diabetes. The last 2 days she has has some dizziness. Its intermittent. She feels lightheaded when she gets it. No headache. She did have a fall 5-10 days ago. She is unsure if she had any head trauma. She did not remember the fall the daughter brought it up. Patient does have some memory issues from the past. She is recently had some nausea and vomiting. She denies any headache. She denies any chest pains, No melena. No dysuria. She is on no blood thinners. Daughter is concerned because she has not recently been ill that to Make sure that her normal pressure hydrocephalus has not worsened. PER HPI: Mrs. Mike is an 81-year-old white female who presented to the emergency department at [facility] on 02/21/2022 for dizziness and vomiting. She presented with her daughter. Her symptoms evidently started on Thursday. She has / caregivers that help take care of her as the patient does have some mild cognitive impairment and memory loss. She evidently had a fall. The patient does not remember this however with her cognitive impairment her short-term memory is problematic. Patient is a very poor historian. She states when she moves around she gets dizziness but she has difficulty quantifying this and describing it. I asked her if she fet like she wa spinning or the world was spinning or if she just felt woozy and she was unable to answer this question. So it is extremely unclear what symptoms she is exactly having. She has had associated nausea and vomiting with these episodes however she states in between her appetites been fine and her oral intake has not been bad. Her daughter is a nurse ans she is checked her blood sugars and her blood pressure and push oral fluids with her thinking that this may help however she had no resolution of her symptoms. They called her primary care physician Dr. Mcnair today and their office just told her to come the emergency department. Upon presentation to the emergency department her temperature was 97.5, pulse 82, blood pressure is 142/94, respiratory rate 16, and oxygen saturations are 96% on room air. Her CBC is unremarkable for any abnormalities. Her BMP shows normal electrolytes however her BUN and serum creatinine are mildly elevated form baseline at 21 and 1.15 respectively. Her glucose was normal at 108. With her history of shunt a CT of her head was performed and shows interval right CONDUCTOR SYMPHONIC ORCHESTRA shunt placement with no other interval change or acute findings. This was compared from a CT on 10/12/2019. A shuntogram was performed that showed ventriculoperitoneal shunt placement with apparent continuity of the shunt tube and no abnormalities. Her EKG ws unremarkable. Dr. Pete in the emergency department discussed the case with neurosurgery at [facility] (Dr. Simpson) who accepted the patient for transfer if her symptoms do not resolve with hydration or other interventions but there are no current beds available and she was admitted here for further care. Hospital Course: 1. 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 Per the daughter, she is never been notified that her mother should not be on Sinemet. During the brief literature review there does not appear to be any indication for Sinemet and NPH therefore we will slowly discontinue this drug as it can cause Orthostatic Hypotension as well as dizziness especially since we do not have any other causes at this time. - She still has some dizziness today however she also ate almost her entire breakfast and denies any nausea. I discussed with her the plan for possible discharge today she expressed understanding of the risk and benefits of going home an is okay with going home with home health today. If she does have any recurring symptoms would recommend following up with her neurologist for further evaluation of her shunt though the shuntogram here showed normal functioning shunt. I also discussed with her the need to stay hydrated, the daughter did relay to me that she controls, she drinks simply because she incontinence issues especially at night. 2. DM2, HLD, anxiety, depression, CHARLES, osteoarthritis are all chronic medical conditions which complicate her care. Her home medications were continued where appropriate. PHYSICAL EXAMINATION BP 120/64 (BP Site: Left Arm, BP Position: Sitting, BP Cuff Size: Large Adult) Pulse 84 Resp 16 GENERAL: well appearing, alert, in no acute distress and uses wheelchair HEART: Regular rate and rhythm. No murmur, rubs or gallops. LUNGS: clear to auscultation, no wheezing, rhonchi, or crackles ASSESSMENT/PLAN: 1. Hospital discharge follow-up - ICD9: V67.59, ICD10: Z09 (primary diagnosis) - Stable 2. 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 Nausea and vomiting, unspecified vomiting type - ICD9: 787.01, ICD10: R11.2 - Stable 4. Cervical spondylosis - ICD9: 721.0, ICD10: M47.812 - MELOXICAM 7.5 MG TABLET 5. Neural foraminal stenosis of cervical spine - ICD9: 723.0, ICD10: M48.02 - MELOXICAM 7.5 MG TABLET 6. 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 Follow up prn I agree with the Chief Complaint, ROS, and Past Histories independently gathered by the clinical manager client support and the remaining scribed note accurately describes my personal service to the patient. Harsh Mcnair MD The documentation for this note was completed by Afsaneh Cruz Ma acting as scribe for Harsh Mcnair MD. March 03, 2022 2:54 PM. Afsaneh Cruz Yamilka documented in this encounter [facility] 02-28-2022 Miscellaneous Notes Noted Monitor Harsh Mcnair MD HUBER GALVAN from [facility] HH calls to report that patient rolled out of bed around 7 am this morning. No injuries noted. Vital signs are within normal limits for patient. Lety Simpson RN documented in this encounter [facility] 02-26-2022 Miscellaneous Notes Noted and agree with plan Harsh Mcnair MD Marty , a PT with [facility] calling to state patient's PT plan of care: Patient will be seen 2 times per week for 3 weeks for functional mobility training. Patient declined OT. No call back needed if provider agreeable. Thank you. documented in this encounter [facility] 02-26-2022 Miscellaneous Notes Spoke with patient's daughter, she reports patient was admitted recently to local ED for dizziness. They obtained a CT which did not show any acute process. She was diagnosed with orthostasis and told to follow-up outpatient for shunt evaluation. They advised her to discuss with physician if sinemet was still neccessary. Advised her to reach out to Dr. Mendoza regarding medication. Will plan for her to meet with [facility] on 03/06/22 for shunt evaluation. Advised her that it is vital she bring CT obtained locally to upcoming appointment. She verbalized understanding. Dayday Mars RN Roselyn (pt's daughter) called to report pt discharged last evening from [facility] and it was recommended pt contact Dr. Dorsey to schedule shunt check/follow up - [phone]. Should pt continue to take Carbidopa Levodopa 25/100 mg since shunt procedure [place] in [address] Dorsey? Electronically signed by Mary Aparicio [facility] at 02/25/2022 3:39 PM EDTdocumented in this encounter [facility] 02-25-2022 History of Present illness Narrative TRANSITION CARE MANAGEMENT (TCM) INITIAL CONTACT Link Trainer Teacher Outreach Provider Action/FYI: 7 Day TCM Pt was admitted to [facility] on 02/21/22 and discharged home 02/24/22 Spoke with daughter Roselyn today 02/25/22. Hospital F/U appt made for 03/03/22. No new medications. [facility] discontinued Sinemet as it might be causing pt to have orthostatic hypotension. Pt does have a neurologist she follows with, she was advised that if sx continued to follow up with Neurologist. Initial contact with patient post discharge, spoke to daughter. Patient identified by name and . TRANSITION CARE MANAGEMENT INITIAL OUTREACH DOCUMENTATION: Date of Outreach: 02/25/2022 02/25/2022 Outreach Attempt 1: Contact Made - Date of Discharge 02/24/2022 02/24/2022 Some recent data might be hidden SUMMARY: -Pt discharged from [facility] on 02/24/22 -Admitted for: lightheadedness, dehydration, dizziness, orthostatic hypotension, unable to ambulate Below copied from Care Everywhere: Narrative 02/21/22: 81-year-old female history of normal pressure hydrocephalus with a shunt and diabetes. The last 2 days she has has some dizziness. Its intermittent. She feels lightheaded when she gets it. No headache. She did have a fall 5-10 days ago. She is unsure if she had any head trauma. She did not remember the fall the daughter brought it up. Patient does have some memory issues from the past. She is recently had some nausea and vomiting. She denies any headache. She denies any chest pains, No melena. No dysuria. She is on no blood thinners. Daughter is concerned because she has not recently been ill that to Make sure that her normal pressure hydrocephalus has not worsened. PER HPI: Mrs. Mike is an 81-year-old white female who presented to the emergency department at [facility] on 02/21/2022 for dizziness and vomiting. She presented with her daughter. Her symptoms evidently started on Thursday. She has 24/7 caregivers that help take care of her as the patient does have some mild cognitive impairment and memory loss. She evidently had a fall. The patient does not remember this however with her cognitive impairment her short-term memory is problematic. Patient is a very poor historian. She states when she moves around she gets dizziness but she has difficulty quantifying this and describing it. I asked her if she fet like she wa spinning or the world was spinning or if she just felt woozy and she was unable to answer this question. So it is extremely unclear what symptoms she is exactly having. She has had associated nausea and vomiting with these episodes however she states in between her appetites been fine and her oral intake has not been bad. Her daughter is a nurse ans she is checked her blood sugars and her blood pressure and push oral fluids with her thinking that this may help however she had no resolution of her symptoms. They called her primary care physician Dr. Mcnair today and their office just told her to come the emergency department. Upon presentation to the emergency department her temperature was 97.5, pulse 82, blood pressure is 142/94, respiratory rate 16, and oxygen saturations are 96% on room air. Her CBC is unremarkable for any abnormalities. Her BMP shows normal electrolytes however her BUN and serum creatinine are mildly elevated form baseline at 21 and 1.15 respectively. Her glucose was normal at 108. With her history of shunt a CT of her head was performed and shows interval right CONDUCTOR SYMPHONIC ORCHESTRA shunt placement with no other interval change or acute findings. This was compared from a CT on 10/12/2019. A shuntogram was performed that showed ventriculoperitoneal shunt placement with apparent continuity of the shunt tube and no abnormalities. Her EKG ws unremarkable. Dr. Pete in the emergency department discussed the case with neurosurgery at [facility] (Dr. Simpson) who accepted the patient for transfer if her symptoms do not resolve with hydration or other interventions but there are no current beds available and she was admitted here for further care. Hospital Course: 1. 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 Per the daughter, she is never been notified that her mother should not be on Sinemet. During the brief literature review there does not appear to be any indication for Sinemet and NPH therefore we will slowly discontinue this drug as it can cause Orthostatic Hypotension as well as dizziness especially since we do not have any other causes at this time. - She still has some dizziness today however she also ate almost her entire breakfast and denies any nausea. I discussed with her the plan for possible discharge today she expressed understanding of the risk and benefits of going home an is okay with going home with home health today. If she does have any recurring symptoms would recommend following up with her neurologist for further evaluation of her shunt though the shuntogram here showed normal functioning shunt. I also discussed with her the need to stay hydrated, the daughter did relay to me that she controls, she drinks simply because she incontinence issues especially at night. 2. DM2, HLD, anxiety, depression, CHARLES, osteoarthritis are all chronic medical conditions which complicate her care. Her home medications were continued where appropriate. Do you have a hospital follow up appointment with your PCP? Appointment on 03/03/[address] Mcnair. MEDICATIONS: Many patients have questions or concerns about their medications once they are home. Were you prescribed any new medications? No Were you told to hold any medications? No Were any of your medications discontinued? Told to wean off her Sinemet-[facility] doctor did not understand why she is still on this Do you have any questions about getting or taking your medications? No Your discharge instructions/After visit Summary (AVS) are important in guiding you through the recovery process. Is there anything I might help you understand? No Do you have all the necessary equipment and supplies at home? yes Medical records from recent hospitalization: Placed for provider to review documented in this encounter [facility] 02-25-2022 Miscellaneous Notes Opened in error. documented in this encounter [facility] 02-24-2022 Miscellaneous Notes Detailed message left for Charo. Jeyson Torres Ma I will follow for OT, PT, and HH Harsh Mcnair MD Nurse Charo from [facility] HH states pt is being observed for orthostatic hypotension, dehydration & dizziness. Will possibly discharge today & will be seen by HH 02/26/22. Will pcp follow? PT, OT & HH. Kaelyn Ochoa LPN documented in this encounter [facility] 02-21-2022 Miscellaneous Notes Daughter (Roselyn) calls to notify provider that caregivers just contacted her to let her know that for the past couple of days patient has been having spells of dizziness and nausea. She reports that her blood sugars and blood pressures have been WNL but has concerns that patient's shunt might not be functioning properly since patient is having so much nausea and dizziness. Instructed daughter to take patient to ED for symptoms and evaluation of Shunt function. Christina Garcia RN documented in this encounter [facility] 02-20-2022 Miscellaneous Notes This has been completed and faxed. Afsaneh Cruz Ma Office received fax from [facility] for Certificate of Medical Necessity for pt DME Pap supplies. Please review form and complete. Once completed fax back to [phone]. Afsaneh Cruz Ma documented in this encounter [facility] 01-22-2022 History of Present illness Narrative Chief Complaint Patient presents with: F/U 6 Month HPI Ramona Mike is a 81 year old female who presents here today for a 6 month follow up. Pt here today for a 6 month follow up. Has been seen in the office due to Covid and Pneumonia earlier part of this year. Pt here today with her Caregiver, Marizol Hernandez. Pt has full 24 hour care; good family support. Reports that she feels well fully recovered. DM - Checking sugars at home, ranging from high 100's - to low 200's. Denies any low blood sugars or neuropathy symptoms. Stable on current regimen of Metformin 500 mg taking 2 tabs po once daily, Amaryl 4 mg once daily and Januvia 100 mg once daily. Tries to eat sugar free foods, but does go to [employer] on occasion. Depression - Stable with use of Zoloft 100 mg 2 tabs po once daily. Moods overall doing well, seems to do better in the summer months. Neuro - Notes some memory issues and feeling forgetful. Currently taking Sinemet 25-100 mg taking 1 tab in the am, 0.5 tab mid day and 1 tab in the pm. Does follow with Neurology, was to see them for a shunt adjustment. Does having worsening with incontinence. On current regimen of Oxybutynin. Lipids - Tries to watch diet, but could be better. Does eat sugar free puddings and sugar free cookie wafers. Denies much exercise, occasionally will walk her driveway. On current regimen of Simvastatin 40 mg once daily. Denies any issues with medication. Denies any issues with shoulder at present time per patient. Will reach for something and here crunching . Does have falls, uses walker FT. They deny any major falls or injuries. HM - Has Adv Dir/Living Will scanned into [facility] [employer]. Past medical history, appointments, medications, allergies reviewed. Previous Medical History PAST MEDICAL HISTORY Diagnosis Date Adjustment disorder with depressed mood Cervical spondylosis Female stress incontinence Generalized osteoarthrosis, unspecified site General Osteoarthritis Neural foraminal stenosis of cervical spine Other and unspecified hyperlipidemia 08/03/2006 Other constipation Type II or unspecified type diabetes mellitus without mention of complication, not stated as uncontrolled Unspecified sleep apnea Uses CPAP Urge incontinence Urgency of urination Previous Surgical History PAST SURGICAL HISTORY Procedure Laterality Date APPENDECTOMY BIOPSY BREAST OPEN INCISIONAL Bx of breast, incisionalx2 COLONOSCOPY FLX DX W/COLLJ SPEC WHEN PFRMD 10-18-03 Colonoscopy-per repeat in LIG/TRNSXJ FLP TUBE ABDL/VAG APPR UNI/BI Tubal ligation PAST SURGICAL HISTORY OF hemorrhoidectomy PAST SURGICAL HISTORY OF 05/29/2008 rt. hip replacement Family History FAMILY HISTORY Problem Relation Age of Onset None Mother Diabetes Father other (CHF) Father Breast Cancer Maternal Grandmother Patient Allergies ALLERGIES Allergen Reactions Penicillins Anaphylaxis Iodine Intolerance Current Medications Current Outpatient Medications on File Prior to Visit Medication Sig sertraline (ZOLOFT) 100 mg tablet Take 2 tablets by mouth once daily. carbidopa-levodopa (SINEMET 25-100) 25-100 mg per tablet 1 tablet in the AM, 0.5 tablets in the middle of the day, 1 tablet in the PM oxybutynin XL (DITROPAN XL) 5 mg 24 hr tablet Take 1 tablet by mouth once daily. metFORMIN (GLUCOPHAGE) 500 mg tablet Take two tablets by mouth in the morning. Take two tablets by mouth with dinner. blood sugar diagnostic (Red GuruTOUCH ULTRA TEST) test strip Test blood sugar 1 times daily. Dx Type 2 DM Controlled E11.9 Insulin: No. meloxicam (MOBIC) 7.5 mg tablet Take 1 tablet by mouth once daily. Take with food. simvastatin (ZOCOR) 40 mg tablet Take 1 tablet by mouth once daily. SITagliptin (JANUVIA) 100 mg tablet Take 1 tablet by mouth once daily. glimepiride (AMARYL) 4 mg tablet Take 1 tablet by mouth daily with breakfast. aspirin, enteric coated (ASPIRIN, ENTERIC COATED) 81 mg EC tablet Take 1 tablet by mouth once daily. Lactobacillus acidophilus (PROBIOTIC ORAL) Take by mouth once daily. glucosamine HCl/chondroitin romano (GLUCOSAMINE-CHONDROITIN ORAL) Take by mouth once daily. acetaminophen (TYLENOL) 325 mg tablet Take 2 tablets by mouth every 4 hours as needed. calcium carbonate 600 mg-cholecalciferol 200 units (CALCIUM 600 + D,3,) 600 mg(1,500mg) -200 unit tab Take 1 tablet by mouth once daily. Lancets (ACCU-CHEK SOFTCLIX LANCETS) lancets Test blood sugar(s) 1 times daily. Dx: Type 2 DM- Controlled E11.9 Insulin: No Cholecalciferol, Vitamin D3, 1,000 unit cap Take 1 capsule by mouth once daily. multivitamins(DAILY MULTIPLE TAB) Take one(1) tablet daily. STOOL SOFTENER 100 MG CAP Take 200 mg by mouth once daily. No current facility-administered medications on file prior to visit. Social History Social History Tobacco Use Smoking status: Never Smoker Smokeless tobacco: Never Used Vaping Use Vaping Use: Never used Substance Use Topics Alcohol use: Yes Comment: rare Drug use: No EXAM: BP 126/82 (BP Site: Right Arm, BP Position: Sitting, BP Cuff Size: Large Adult) Pulse 78 Resp 16 Wt 78.4 kg (172 lb 12.8 oz) BMI 33.75 kg/m General Appearance: Well appearing, alert, in no acute distress, well-hydrated, well nourished. Uses Walker to ambulate into visit today. Lungs: Lungs clear to auscultation. No wheezing, rhonchi, rales.. Heart: RRR without murmur, gallop, or rubs. No ectopy. Health Maintenance List FECAL OCCULT BLOOD due on 06/22/2020 ADVANCE DIRECTIVE DISCUSSION Never done COVID-19 VACCINE(4 - Booster for Moderna series) due on 11/17/2021 DILATED RETINAL EXAM due on 02/11/2022 HBA1C due on 01/23/2022 URINE ALBUMIN:CREATININE RATIO due on 04/12/2022 DIABETIC FOOT EXAM due on 07/17/2022 LDL CHOLESTEROL due on 07/26/2022 DTAP,TDAP,TD(4 - Td or Tdap) due on 04/15/2029 BONE DENSITY Completed INFLUENZA Completed PNEUMOVAX AGE 65 AND OVER WITH 5YR LOOKBACK Completed SHINGRIX VACCINE Completed MENINGOCOCCAL CONJUGATE Aged Out Data reviewed Results Only on 01/15/2022 Component Date Value Hemoglobin A1C 01/15/2022 7.8 (A) Estimated Average Glucose 01/15/2022 177 Cholesterol, Total 01/15/2022 149 Triglyceride 01/15/2022 183 (A) HDL Cholesterol 01/15/2022 54 Non HDL Cholesterol 01/15/2022 95 Fasting Time 01/15/2022 13 VLDL Cholesterol 01/15/2022 37 (A) TC:HDL Ratio 01/15/2022 2.76 LDL Cholesterol 01/15/2022 58 LDL:HDL Ratio 01/15/2022 1.07 Protein, Total 01/15/2022 7.3 Albumin 01/15/2022 4.4 Calcium, Total 01/15/2022 10.6 (A) Bilirubin, Total 01/15/2022 0.2 Alkaline Phosphatase 01/15/2022 78 AST 01/15/2022 18 ALT 01/15/2022 15 Glucose 01/15/2022 203 (A) BUN 01/15/2022 18 Creatinine 01/15/2022 0.91 Sodium 01/15/2022 135 (A) Potassium 01/15/2022 4.9 Chloride 01/15/2022 96 (A) CO2 01/15/2022 26 Anion Gap 01/15/2022 13 Estimated Glomerular Cash* 01/15/2022 64 ASSESSMENT/PLAN: 1. Controlled type 2 diabetes mellitus without complication, without long-term current use of insulin (HCC) - ICD9: 250.00, ICD10: E11.9 (primary diagnosis) worsening control, but stable - Continue current medications; appropriate to keep A1c under 8 - Encouraged regular aerobic exercise and weight loss - SITAGLIPTIN 100 MG TABLET 2. Hyperlipidemia, unspecified hyperlipidemia type - ICD9: 272.4, ICD10: E78.5 - good control - Continue current medication. - Encouraged following a low fat, low cholesterol diet. - Discussed the benefits of regular aerobic exercise and weight loss. - SIMVASTATIN 40 MG TABLET 3. Depressive disorder - ICD9: 311, ICD10: F32.A - Stable on current regimen 4. Essential hypertension, benign - ICD9: 401.1, ICD10: I10 - good control - Recommended regular aerobic exercise. - Recommend home blood pressure monitoring, to bring results in on next visit - Goal of BP <130/80 5. Memory difficulties - ICD9: 780.93, ICD10: R41.3 - Stable - Cont f/u with neuro - Continue current medication regimen. 6. Female stress incontinence - ICD9: 625.6, ICD10: N39.3 - Continue current medication regimen. 6 mo f/u with labs I agree with the Chief Complaint, ROS, and Past Histories independently gathered by the clinical manager client support and the remaining scribed note accurately describes my personal service to the patient. Medical Decision Making: Problems: Moderate: 2+ stable chronic illnesses Data: Unique test result(s) reviewed: 2 Unique test(s) ordered: 2 Risk: Moderate: Drug management Medical Decision Making Level: 4 - Moderate Harsh Mcnair MD The documentation for this note was completed by Afsaneh Cruz Ma acting as scribe for Harsh Mcnair MD. January 22, 2022 12:25 PM. Afsaneh Cruz Ma documented in this encounter [facility] 01-06-2022 Miscellaneous Notes The following approved medication requests have been transmitted electronically. Signed Prescriptions Disp Refills sertraline (ZOLOFT) 100 mg tablet 180 tablet 3 Sig: Take 2 tablets by mouth once daily. LESLIE: No Authorizing Provider: HARSH MCNAIR carbidopa-levodopa (SINEMET 25-100) 25-100 mg per tablet 225 tablet 3 Si tablet in the AM, 0.5 tablets in the middle of the day, 1 tablet in the PM LESLIE: No Authorizing Provider: HARSH MCNAIR Tech OK to refill as ordered Harsh Mcnair MD Patient has been identified by name and date of : Yes Pending Prescriptions Disp Refills SERTRALINE 100 MG TABLET 180 tablet 2 Sig: Take 2 tablets by mouth once daily. LESLIE: No CARBIDOPA 25 MG-LEVODOPA 100 MG TABLET 225 tablet 0 Si tablet in the AM, 0.5 tablets in the middle of the day, 1 tablet in the PM LESLIE: No RX INSTRUCTIONS: Patient aware RX will be sent to pharmacy. No need to notify patient. Priscilla Wells documented in this encounter [facility] documented as of this encounter (statuses as of 01/06/2022) [facility] History of Past illness Narrative* Problem Noted Date Resolved Date Postoperative pain 04/13/2020 04/19/2020 Normal pressure hydrocephalus 10/13/2019 Symptomatic menopausal or female climacteric sta eulalia 08/21/2008 07/23/2010 documented as of this encounter (statuses as of 01/22/2022) [facility] History of Past illness Narrative* Problem Noted Date Resolved Date Postoperative pain 04/13/2020 04/19/2020 Normal pressure hydrocephalus 10/13/2019 Symptomatic menopausal or female climacteric sta eulalia 08/21/2008 07/23/2010 documented as of this encounter (statuses as of 02/20/2022) [facility] History of Past illness Narrative* Problem Noted Date Resolved Date Postoperative pain 04/13/2020 04/19/2020 Normal pressure hydrocephalus 10/13/2019 Symptomatic menopausal or female climacteric sta eulalia 08/21/2008 07/23/2010 documented as of this encounter (statuses as of 02/21/2022) [facility] History of Past illness Narrative* Problem Noted Date Resolved Date Postoperative pain 04/13/2020 04/19/2020 Normal pressure hydrocephalus 10/13/2019 Symptomatic menopausal or female climacteric sta eulalia 08/21/2008 07/23/2010 documented as of this encounter (statuses as of 02/24/2022) [facility] History of Past illness Narrative* Problem Noted Date Resolved Date Postoperative pain 04/13/2020 04/19/2020 Normal pressure hydrocephalus 10/13/2019 Symptomatic menopausal or female climacteric sta eulalia 08/21/2008 07/23/2010 documented as of this encounter (statuses as of 02/25/2022) [facility] History of Past illness Narrative* Problem Noted Date Resolved Date Postoperative pain 04/13/2020 04/19/2020 Normal pressure hydrocephalus 10/13/2019 Symptomatic menopausal or female climacteric sta eulalia 08/21/2008 07/23/2010 documented as of this encounter (statuses as of 02/26/2022) [address]07-2020 History of Past illness Narrative* Problem Noted Date Resolved Date Postoperative pain 04/13/2020 04/19/2020 Normal pressure hydrocephalus 10/13/2019 Symptomatic menopausal or female climacteric sta eulalia 08/21/2008 07/23/2010 documented as of this encounter (statuses as of 02/26/2022) [address]-2020 History of Past illness Narrative* Problem Noted Date Resolved Date Postoperative pain 04/13/2020 04/19/2020 Normal pressure hydrocephalus 10/13/2019 Symptomatic menopausal or female climacteric sta eulalia 08/21/2008 07/23/2010 documented as of this encounter (statuses as of 02/28/2022) [address]-2020 History of Past illness Narrative* Problem Noted Date Resolved Date Postoperative pain 04/13/2020 04/19/2020 Normal pressure hydrocephalus 10/13/2019 Symptomatic menopausal or female climacteric sta eulalia 08/21/2008 07/23/2010 documented as of this encounter (statuses as of 03/03/2022) [address]-2020 History of Past illness Narrative* Problem Noted Date Resolved Date Postoperative pain 04/13/2020 04/19/2020 Normal pressure hydrocephalus 10/13/2019 Symptomatic menopausal or female climacteric sta eulalia 08/21/2008 07/23/2010 documented as of this encounter (statuses as of 03/03/2022) [facility] History of Past illness Narrative* Problem Noted Date Resolved Date Postoperative pain 04/13/2020 04/19/2020 Normal pressure hydrocephalus 10/13/2019 Symptomatic menopausal or female climacteric sta eulalia 08/21/2008 07/23/2010 documented as of this encounter (statuses as of 03/06/2022) [address]-2020 History of Past illness Narrative* Problem Noted Date Resolved Date Postoperative pain 04/13/2020 04/19/2020 Normal pressure hydrocephalus 10/13/2019 Symptomatic menopausal or female climacteric sta eulalia 08/21/2008 07/23/2010 documented as of this encounter (statuses as of 03/06/2022) [facility] History of Past illness Narrative* Problem Noted Date Resolved Date Postoperative pain 04/13/2020 04/19/2020 Normal pressure hydrocephalus 10/13/2019 Symptomatic menopausal or female climacteric sta eulalia 08/21/2008 07/23/2010 documented as of this encounter (statuses as of 03/06/2022) [facility] History of Past illness Narrative* Problem Noted Date Resolved Date Postoperative pain 04/13/2020 04/19/2020 Normal pressure hydrocephalus 10/13/2019 Symptomatic menopausal or female climacteric sta eulalia 08/21/2008 07/23/2010 documented as of this encounter (statuses as of 05/26/2022) [facility] History of Past illness Narrative* Problem Noted Date Resolved Date Postoperative pain 04/13/2020 04/19/2020 Normal pressure hydrocephalus 10/13/2019 Symptomatic menopausal or female climacteric sta eulalia 08/21/2008 07/23/2010 documented as of this encounter (statuses as of 06/07/2022) [facility] History of Past illness Narrative* Problem Noted Date Resolved Date Postoperative pain 04/13/2020 04/19/2020 Normal pressure hydrocephalus 10/13/2019 Symptomatic menopausal or female climacteric sta eulalia 08/21/2008 07/23/2010 documented as of this encounter (statuses as of 07/16/2022) [facility] History of Past illness Narrative* Problem Noted Date Resolved Date Postoperative pain 04/13/2020 04/19/2020 Normal pressure hydrocephalus 10/13/2019 Symptomatic menopausal or female climacteric sta eulalia 08/21/2008 07/23/2010 documented as of this encounter (statuses as of 07/22/2022) [facility] History of Past illness Narrative* Problem Noted Date Resolved Date Postoperative pain 04/13/2020 04/19/2020 Normal pressure hydrocephalus 10/13/2019 Symptomatic menopausal or female climacteric sta eulalia 08/21/2008 07/23/2010 documented as of this encounter (statuses as of 07/22/2022) [facility] History of Past illness Narrative* Problem Noted Date Resolved Date Postoperative pain 04/13/2020 04/19/2020 Normal pressure hydrocephalus 10/13/2019 Symptomatic menopausal or female climacteric sta eulalia 08/21/2008 07/23/2010 documented as of this encounter (statuses as of 07/30/2022) [facility] History of Past illness Narrative* Problem Noted Date Resolved Date Postoperative pain 04/13/2020 04/19/2020 Normal pressure hydrocephalus 10/13/2019 Symptomatic menopausal or female climacteric sta eulalia 08/21/2008 07/23/2010 documented as of this encounter (statuses as of 07/30/2022) [facility] History of Past illness Narrative* Problem Noted Date Resolved Date Postoperative pain 04/13/2020 04/19/2020 Normal pressure hydrocephalus 10/13/2019 Symptomatic menopausal or female climacteric sta eulalia 08/21/2008 07/23/2010 documented as of this encounter (statuses as of 08/06/2022) [address]-2020 History of Past illness Narrative* Problem Noted Date Resolved Date Postoperative pain 04/13/2020 04/19/2020 Normal pressure hydrocephalus 10/13/2019 Symptomatic menopausal or female climacteric sta eulalia 08/21/2008 07/23/2010 documented as of this encounter (statuses as of 09/18/2022) [facility] History of Past illness Narrative* Problem Noted Date Resolved Date Postoperative pain 04/13/2020 04/19/2020 Normal pressure hydrocephalus 10/13/2019 Symptomatic menopausal or female climacteric sta eulalia 08/21/2008 07/23/2010 documented as of this encounter (statuses as of 10/01/2022) [facility] History of Past illness Narrative* Problem Noted Date Resolved Date Postoperative pain 04/13/2020 04/19/2020 Normal pressure hydrocephalus 10/13/2019 Symptomatic menopausal or female climacteric sta eulalia 08/21/2008 07/23/2010 documented as of this encounter (statuses as of 10/03/2022) [facility] History of Past illness Narrative* Problem Noted Date Resolved Date Postoperative pain 04/13/2020 04/19/2020 Normal pressure hydrocephalus 10/13/2019 Symptomatic menopausal or female climacteric sta eulalia 08/21/2008 07/23/2010 documented as of this encounter (statuses as of 10/15/2022) [address]-2020 History of Past illness Narrative* Problem Noted Date Resolved Date Postoperative pain 04/13/2020 04/19/2020 Normal pressure hydrocephalus 10/13/2019 Symptomatic menopausal or female climacteric sta eulalia 08/21/2008 07/23/2010 documented as of this encounter (statuses as of 10/22/2022) [facility]2020 History of Past illness Narrative* Problem Noted Date Resolved Date Postoperative pain 04/13/2020 04/19/2020 Normal pressure hydrocephalus 10/13/2019 Symptomatic menopausal or female climacteric sta eulalia 08/21/2008 07/23/2010 documented as of this encounter (statuses as of 10/27/2022) [facility]2020 History of Past illness Narrative* Problem Noted Date Resolved Date Postoperative pain 04/13/2020 04/19/2020 Normal pressure hydrocephalus 10/13/2019 Symptomatic menopausal or female climacteric sta eul[place] 08/21/2008 07/23/2010 documented as of this encounter (statuses as of 12/26/2022) [facility] History of Past illness Narrative* Problem Noted Date Resolved Date Postoperative pain 04/13/2020 04/19/2020 Normal pressure hydrocephalus 10/13/2019 Symptomatic menopausal or female climacteric sta eul[place] 08/21/2008 07/23/2010 documented as of this encounter (statuses as of 01/07/2023) [address]07-2020 History of Past illness Narrative* Problem Noted Date Resolved Date Postoperative pain 04/13/2020 04/19/2020 Normal pressure hydrocephalus 10/13/2019 Symptomatic menopausal or female climacteric sta eulalia 08/21/2008 07/23/2010 documented as of this encounter (statuses as of 01/14/2023) [place] [address]-07-2020 History of Past illness Narrative* Problem Noted Date Resolved Date Postoperative pain 04/13/2020 04/19/2020 Normal pressure hydrocephalus 10/13/2019 Symptomatic menopausal or female climacteric sta eulalia 08/21/2008 07/23/2010 documented as of this encounter (statuses as of 01/14/2023) [address]07-2020 History of Past illness Narrative* Problem Noted Date Resolved Date Postoperative pain 04/13/2020 04/19/2020 Normal pressure hydrocephalus 10/13/2019 Symptomatic menopausal or female climacteric sta eulalia 08/21/2008 07/23/2010 documented as of this encounter (statuses as of 01/15/2023) [address]07-2020 History of Past illness Narrative* Problem Noted Date Resolved Date Postoperative pain 04/13/2020 04/19/2020 Normal pressure hydrocephalus 10/13/2019 Symptomatic menopausal or female climacteric sta eul[place] 08/21/2008 07/23/2010 documented as of this encounter (statuses as of 01/16/2023) [address]07-2020 History of Past illness Narrative* Problem Noted Date Resolved Date Postoperative pain 04/13/2020 04/19/2020 Normal pressure hydrocephalus 10/13/2019 Symptomatic menopausal or female climacteric sta eul[place] 08/21/2008 07/23/2010 documented as of this encounter (statuses as of 02/03/2023) [address]07-2020 History of Past illness Narrative* Problem Noted Date Resolved Date Postoperative pain 04/13/2020 04/19/2020 Normal pressure hydrocephalus 10/13/2019 Symptomatic menopausal or female climacteric sta eul[place] 08/21/2008 07/23/2010 documented as of this encounter (statuses as of 02/06/2023) [address]07-2020 History of Past illness Narrative* Problem Noted Date Resolved Date Postoperative pain 04/13/2020 04/19/2020 Normal pressure hydrocephalus 10/13/2019 Symptomatic menopausal or female climacteric sta eulalia 08/21/2008 07/23/2010 documented as of this encounter (statuses as of 02/06/2023) [address]07-2020 History of Past illness Narrative* Problem Noted Date Resolved Date Postoperative pain 04/13/2020 04/19/2020 Normal pressure hydrocephalus 10/13/2019 Symptomatic menopausal or female climacteric sta eulalia 08/21/2008 07/23/2010 documented as of this encounter (statuses as of 02/06/2023) [address]07-2020 History of Past illness Narrative* Problem Noted Date Resolved Date Postoperative pain 04/13/2020 04/19/2020 Normal pressure hydrocephalus 10/13/2019 Symptomatic menopausal or female climacteric sta eulalia 08/21/2008 07/23/2010 documented as of this encounter (statuses as of 02/07/2023) [address]07-2020 History of Past illness Narrative* Problem Noted Date Diagnosed Date Resolved Date Postoperative pain 04/13/2020 0 Normal pressure hydrocephalus 10/13/2019 04/19/2020 Symptomatic menopausal or fe male climacteric states 08/21/2008 07/23/2010 documented as of this encounter (statuses as of 04/03/2023) [address]07-2020 History of Past illness Narrative* Problem Noted Date Diagnosed Date Resolved Date Postoperative pain 04/13/2020 0 Normal pressure hydrocephalus 10/13/2019 04/19/2020 Symptomatic menopausal or fe male climacteric states 08/21/2008 07/23/2010 documented as of this encounter (statuses as of 04/18/2023) [facility] History of Past illness Narrative* Problem Noted Date Diagnosed Date Resolved Date Postoperative pain 04/13/2020 0 Normal pressure hydrocephalus 10/13/2019 04/19/2020 Symptomatic menopausal or fe male climacteric states 08/21/2008 07/23/2010 documented as of this encounter (statuses as of 04/22/2023) [address]07-2020 History of Past illness Narrative* Problem Noted Date Diagnosed Date Resolved Date Postoperative pain 04/13/2020 0 Normal pressure hydrocephalus 10/13/2019 04/19/2020 Symptomatic menopausal or fe male climacteric states 08/21/2008 07/23/2010 documented as of this encounter (statuses as of 05/07/2023) [facility] Depressive disorder Depressive disorder, not elsewhere classified Vascular parkinsonism (HCC) Paralysis agitans [facility] Diagnosis Controlled type 2 diabetes mellitus without complication, without long-term current use of insulin ([facility])- Primary Hyperlipidemia, unspecified hyperlipidemia type Depressive disorder Depressive disorder, not elsewhere classified Essential hypertension, benign Memory difficulties Memory loss Female stress incontinence [facility] S/P CONDUCTOR SYMPHONIC ORCHESTRA shunt- Primary Presence of cerebrospinal fluid drainage device Other hydrocephalus (HCC) [facility] Hospital discharge follow-up- Primary Other follow-up examination Orthostatic hypertension Nausea and vomiting, unspecified vomiting type Cervical spondylosis Cervical spondylosis without myelopathy Neural foraminal stenosis of cervical spine Spinal stenosis in cervical region Bilateral hand numbness Disturbance of skin sensation Vascular parkinsonism (HCC) Paralysis agitans [facility] Diagnosis NPH (normal pressure hydrocephalus) (HCC)- Primary Idiopathic normal pressure hydrocephalus (INPH) Dehydration Adverse effects of medication, initial encounter [facility] Diagnosis Other hydrocephalus (HCC) [facility] Diagnosis Major neurocognitive disorder (HCC)- Primary Unspecified persistent mental disorders due to conditions classified elsewhere NPH (normal pressure hydrocephalus) (HCC) Idiopathic normal pressure hydrocephalus (INPH) Controlled type 2 diabetes mellitus without complication, without long-term current use of insulin ([facility]) Depression, unspecified depression type [facility]* Diagnosis Hyperlipidemia, unspecified hyperlipidemia type- Primary Essential hypertension, benign Female stress incontinence Controlled type 2 diabetes mellitus without complication, without long-term current use of insulin ([facility]) Depressive disorder Depressive disorder, not elsewhere classified NPH (normal pressure hydrocephalus) (HCC) Idiopathic normal pressure hydrocephalus (INPH) Dementia without behavioral disturbance, psychotic disturbance, mood disturbance, or anxiety, unspecified dementia severity, unspecified dementia type ([facility]) [facility] Diagnosis Encounter for gynecological examination (general) (routine) without abnormal findings- Primary Encounter for screening for osteoporosis Special screening for osteoporosis Unspecified menopausal and perimenopausal disorder [facility] Diagnosis Female stress incontinence- Primary [facility] Female stress incontinence [facility] Diagnosis Controlled type 2 diabetes mellitus without complication, without long-term current use of insulin (HCC) [facility]* Diagnosis 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)- Primary Other persistent mental disorders due to conditions classified elsewhere [facility] Diagnosis Female stress incontinence- Primary [facility] Diagnosis Urine retention- Primary Retention of urine, unspecified Mixed stress and urge urinary incontinence Mixed incontinence urge and stress (male)(female) Vascular parkinsonism (HCC) Paralysis agitans documented in this encounter [facility] note* Diagnosis Female stress incontinence documented in this encounter [facility] note* Diagnosis Depressive disorder Depressive disorder, not elsewhere classified documented in this encounter [facility] note* Diagnosis Controlled type 2 diabetes mellitus without complication, without long-term current use of insulin (HCC) documented in this encounter [facility] note* Diagnosis Other hydrocephalus (HCC)- Primary documented in this encounter [facility] note* Diagnosis 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)- Primary Other persistent mental disorders due to conditions classified elsewhere NPH (normal pressure hydrocephalus) (HCC) 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 Presence of cerebrospinal fluid drainage device Major depressive disorder, recurrent, in partial remission (HCC) Major depressive disorder, recurrent episode, in partial or unspecified remission Female stress incontinence documented in this encounter [facility] note* Diagnosis Other hydrocephalus (HCC) documented in this encounter [facility] note* Diagnosis Controlled type 2 diabetes mellitus without complication, without long-term current use of insulin (HCC) documented in this encounter [facility] note* Diagnosis Cervical spondylosis Cervical spondylosis without myelopathy Neural foraminal stenosis of cervical spine Spinal stenosis in cervical region Bilateral hand numbness Disturbance of skin sensation documented in this encounter [facility] note* Diagnosis 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)- Primary Other persistent mental disorders due to conditions classified elsewhere Controlled type 2 diabetes mellitus without complication, without long-term current use of insulin (HCC) Balance problem Other symptoms involving nervous and musculoskeletal systems Hyperlipidemia, unspecified hyperlipidemia type Chronic constipation Unspecified constipation Female stress incontinence Cervical spondylosis Cervical spondylosis without myelopathy Depressive disorder Depressive disorder, not elsewhere classified documented in this encounter [facility] for referral (narrative)* Diagnostic Procedure Only (Routine) - Authorized Specialty Diagnoses / Procedures Referred By Keysha mascorro Referred To Contact US IMAGING Diagnoses Mixed stress and urge urinary incontinence Urine retention Procedures US KIDNEY/BLADDER US RETROPERITONEAL REAL TIME W/IMAGE COMPLETE Cristine Vega, EXTERIOR INTERIOR SPECIALIST.[employer] [address] [place] [address] Us Imaging Referral ID Status Reason Start Date Expiration Date Visits Requested Visits Authorized [id number] Authorized Auto-Generat ed Referral 01/07/2023 02/06/2024 1 1 [facility] Advance Directives No Advanced Directives Records FoundDocuments on File Type Date Recorded Patient Medical Typist Expl anation Advance Directive(s) 03/20/2020 4:10 PM Advance Directive(s) 03/20/2020 4:11 PM Advance Directive(s) 03/02/2020 3:38 PM Advance Directive(s) 02/15/2020 3:49 PM Advance Directive(s) 01/27/2020 10:30 AM Advance Directive(s) 11/25/2019 1:12 PM Documents on File Type Date Recorded Patient Medical Typist Expl anation Advance Directive(s) 03/20/2020 4:10 PM Advance Directive(s) 03/20/2020 4:11 PM Advance Directive(s) 03/02/2020 3:38 PM Advance Directive(s) 02/15/2020 3:49 PM Advance Directive(s) 01/27/2020 10:30 AM Advance Directive(s) 11/25/2019 1:12 PM Documents on File Type Date Recorded Patient Medical Typist Expl anation Advance Directive(s) 03/20/2020 4:11 PM Documents on File Type Date Recorded Patient Medical Typist Expl anation Advance Directive(s) 03/20/2020 4:11 PM Reason for Referral Specialty Diagnoses / Procedures Referred By Contac t Referred To Contact CT IMAGING Diagnoses Other hydrocephalus (HCC) S/P CONDUCTOR SYMPHONIC ORCHESTRA shunt Procedures CT BRAIN WO IVCON CT HEAD/BRAIN W/O CONTRAST MATERIAL Orestes Hernandez PA-C [id number] [place] [address] Ct Imaging Referral ID Status Reason Start Date Expiration Date Visits Requested Visits Authorized [id number] Pending Review Auto-Generat ed Referral 02/26/2022 03/28/2023 1 1 Specialty Diagnoses / Procedures Referred By Contac t Referred To Contact CT IMAGING Diagnoses Other hydrocephalus (HCC) Procedures CT BRAIN WO IVCON CT HEAD/BRAIN W/O CONTRAST MATERIAL Ramírez Leavitt PA-C [id number] [place] [address] Ct Imaging Referral ID Status Reason Start Date Expiration Date Visits Requested Visits Authorized [id number] Pending Review Auto-Generat ed Referral 03/06/2022 04/05/2023 1 1 Specialty Diagnoses / Procedures Referred By Contac t Referred To Contact Urology Diagnoses Female stress incontinence Procedures CONSULT TO UROLOGY OFFICE/OUTPATIENT [facility]3] 60-74 MINUTES Harsh Mcnair MD [address] [place] [address] Referral ID Status Reason Start Date Expiration Date Visits Requested Visits Authorized [id number] Authorized PCP Requested Referral 12/25/2022 12/25/2023 1 1 Referral ID Status Reason Start Date Expiration Date Visits Requested Visits Authorized [id number] Pending Review Auto-Generat ed Referral 02/05/2023 03/06/2024 1 1 Referral ID Status Reason Start Date Expiration Date V isits Requested Visits Authorized [id number] Closed Auto-Generate d Referral 03/06/2022 04/05/2023 1 1 Summary Purpose Family History No Family History Records Found Additional Source Comments Source Comments (unrecognize d section and content) In the event this informatio n is protected by the Federal Confidentiality of Alcohol and Drug Abuse Patient Records regulations: The Federal rules restrict any use of the information to criminally investigate or prosecute any alcohol or drug abuse patient.[facility] event this information is protected by the Federal Confidentiality of Alcohol and Drug Abuse Patient Records regulations: The Federal rules restrict any use of the information to criminally investigate or prosecute any alcohol or drug abuse patient.[facility] the event this information is protected by the Federal Confidentiality of Alcohol and Drug Abuse Patient Records regulations: The Federal rules restrict any use of the information to criminally investigate or prosecute any alcohol or drug abuse patient.[facility] the event this information is protected by the Federal Confidentiality of Alcohol and Drug Abuse Patient Records regulations: The Federal rules restrict any use of the information to criminally investigate or prosecute any alcohol or drug abuse patient.[facility] the event this information is protected by the Federal Confidentiality of Alcohol and Drug Abuse Patient Records regulations: The Federal rules restrict any use of the information to criminally investigate or prosecute any alcohol or drug abuse patient.[facility] the event this information is protected by the Federal Confidentiality of Alcohol and Drug Abuse Patient Records regulations: The Federal rules restrict any use of the information to criminally investigate or prosecute any alcohol or drug abuse patient.[facility] the event this information is protected by the Federal Confidentiality of Alcohol and Drug Abuse Patient Records regulations: The Federal rules restrict any use of the information to criminally investigate or prosecute any alcohol or drug abuse patient.[facility] the event this information is protected by the Federal Confidentiality of Alcohol and Drug Abuse Patient Records regulations: The Federal rules restrict any use of the information to criminally investigate or prosecute any alcohol or drug abuse patient.[facility] the event this information is protected by the Federal Confidentiality of Alcohol and Drug Abuse Patient Records regulations: The Federal rules restrict any use of the information to criminally investigate or prosecute any alcohol or drug abuse patient.[facility] the event this information is protected by the Federal Confidentiality of Alcohol and Drug Abuse Patient Records regulations: The Federal rules restrict any use of the information to criminally investigate or prosecute any alcohol or drug abuse patient.[facility] the event this information is protected by the Federal Confidentiality of Alcohol and Drug Abuse Patient Records regulations: The Federal rules restrict any use of the information to criminally investigate or prosecute any alcohol or drug abuse patient.[facility] the event this information is protected by the Federal Confidentiality of Alcohol and Drug Abuse Patient Records regulations: The Federal rules restrict any use of the information to criminally investigate or prosecute any alcohol or drug abuse patient.[facility] the event this information is protected by the Federal Confidentiality of Alcohol and Drug Abuse Patient Records regulations: The Federal rules restrict any use of the information to criminally investigate or prosecute any alcohol or drug abuse patient.[facility] the event this information is protected by the Federal Confidentiality of Alcohol and Drug Abuse Patient Records regulations: The Federal rules restrict any use of the information to criminally investigate or prosecute any alcohol or drug abuse patient.[facility] the event this information is protected by the Federal Confidentiality of Alcohol and Drug Abuse Patient Records regulations: The Federal rules restrict any use of the information to criminally investigate or prosecute any alcohol or drug abuse patient.[facility] the event this information is protected by the Federal Confidentiality of Alcohol and Drug Abuse Patient Records regulations: The Federal rules restrict any use of the information to criminally investigate or prosecute any alcohol or drug abuse patient.[facility] the event this information is protected by the Federal Confidentiality of Alcohol and Drug Abuse Patient Records regulations: The Federal rules restrict any use of the information to criminally investigate or prosecute any alcohol or drug abuse patient.[facility] the event this information is protected by the Federal Confidentiality of Alcohol and Drug Abuse Patient Records regulations: The Federal rules restrict any use of the information to criminally investigate or prosecute any alcohol or drug abuse patient.[facility] the event this information is protected by the Federal Confidentiality of Alcohol and Drug Abuse Patient Records regulations: The Federal rules restrict any use of the information to criminally investigate or prosecute any alcohol or drug abuse patient.[facility] the event this information is protected by the Federal Confidentiality of Alcohol and Drug Abuse Patient Records regulations: The Federal rules restrict any use of the information to criminally investigate or prosecute any alcohol or drug abuse patient.[facility] the event this information is protected by the Federal Confidentiality of Alcohol and Drug Abuse Patient Records regulations: The Federal rules restrict any use of the information to criminally investigate or prosecute any alcohol or drug abuse patient.[facility] the event this information is protected by the Federal Confidentiality of Alcohol and Drug Abuse Patient Records regulations: The Federal rules restrict any use of the information to criminally investigate or prosecute any alcohol or drug abuse patient.[facility] the event this information is protected by the Federal Confidentiality of Alcohol and Drug Abuse Patient Records regulations: The Federal rules restrict any use of the information to criminally investigate or prosecute any alcohol or drug abuse patient.[facility] the event this information is protected by the Federal Confidentiality of Alcohol and Drug Abuse Patient Records regulations: The Federal rules restrict any use of the information to criminally investigate or prosecute any alcohol or drug abuse patient.[facility] the event this information is protected by the Federal Confidentiality of Alcohol and Drug Abuse Patient Records regulations: The Federal rules restrict any use of the information to criminally investigate or prosecute any alcohol or drug abuse patient.[facility] the event this information is protected by the Federal Confidentiality of Alcohol and Drug Abuse Patient Records regulations: The Federal rules restrict any use of the information to criminally investigate or prosecute any alcohol or drug abuse patient.[facility] the event this information is protected by the Federal Confidentiality of Alcohol and Drug Abuse Patient Records regulations: The Federal rules restrict any use of the information to criminally investigate or prosecute any alcohol or drug abuse patient.[facility] the event this information is protected by the Federal Confidentiality of Alcohol and Drug Abuse Patient Records regulations: The Federal rules restrict any use of the information to criminally investigate or prosecute any alcohol or drug abuse patient.[facility] the event this information is protected by the Federal Confidentiality of Alcohol and Drug Abuse Patient Records regulations: The Federal rules restrict any use of the information to criminally investigate or prosecute any alcohol or drug abuse patient.[facility] the event this information is protected by the Federal Confidentiality of Alcohol and Drug Abuse Patient Records regulations: The Federal rules restrict any use of the information to criminally investigate or prosecute any alcohol or drug abuse patient.[facility] the event this information is protected by the Federal Confidentiality of Alcohol and Drug Abuse Patient Records regulations: The Federal rules restrict any use of the information to criminally investigate or prosecute any alcohol or drug abuse patient.[facility] the event this information is protected by the Federal Confidentiality of Alcohol and Drug Abuse Patient Records regulations: The Federal rules restrict any use of the information to criminally investigate or prosecute any alcohol or drug abuse patient.[facility] the event this information is protected by the Federal Confidentiality of Alcohol and Drug Abuse Patient Records regulations: The Federal rules restrict any use of the information to criminally investigate or prosecute any alcohol or drug abuse patient.[facility] the event this information is protected by the Federal Confidentiality of Alcohol and Drug Abuse Patient Records regulations: The Federal rules restrict any use of the information to criminally investigate or prosecute any alcohol or drug abuse patient.[facility] the event this information is protected by the Federal Confidentiality of Alcohol and Drug Abuse Patient Records regulations: The Federal rules restrict any use of the information to criminally investigate or prosecute any alcohol or drug abuse patient.[facility]In the event this information is protected by the Federal Confidentiality of Alcohol and Drug Abuse Patient Records regulations: The Federal rules restrict any use of the information to criminally investigate or prosecute any alcohol or drug abuse patient.[facility] the event this information is protected by the Federal Confidentiality of Alcohol and Drug Abuse Patient Records regulations: The Federal rules restrict any use of the information to criminally investigate or prosecute any alcohol or drug abuse patient.[facility] HospitalIn the event this information is protected by the Federal Confidentiality of Alcohol and Drug Abuse Patient Records regulations: The Federal rules restrict any use of the information to criminally investigate or prosecute any alcohol or drug abuse patient.[facility]In the event this information is protected by the Federal Confidentiality of Alcohol and Drug Abuse Patient Records regulations: The Federal rules restrict any use of the information to criminally investigate or prosecute any alcohol or drug abuse patient.[facility] HospitalIn the event this information is protected by the Federal Confidentiality of Alcohol and Drug Abuse Patient Records regulations: The Federal rules restrict any use of the information to criminally investigate or prosecute any alcohol or drug abuse patient.[facility]In the event this information is protected by the Federal Confidentiality of Alcohol and Drug Abuse Patient Records regulations: The Federal rules restrict any use of the information to criminally investigate or prosecute any alcohol or drug abuse patient.[facility]In the event this information is protected by the Federal Confidentiality of Alcohol and Drug Abuse Patient Records regulations: The Federal rules restrict any use of the information to criminally investigate or prosecute any alcohol or drug abuse patient.[facility]In the event this information is protected by the Federal Confidentiality of Alcohol and Drug Abuse Patient Records regulations: The Federal rules restrict any use of the information to criminally investigate or prosecute any alcohol or drug abuse patient.[facility]In the event this information is protected by the Federal Confidentiality of Alcohol and Drug Abuse Patient Records regulations: The Federal rules restrict any use of the information to criminally investigate or prosecute any alcohol or drug abuse patient.[facility] Reason for Visit (unrecogniz ed section and content) Reason Comments F/U 6 Month Reason Comments Forms Reason Comments Patient Update Reason Comments Home Care Orders Reason Comments Patient Outreach Reason Comments Patient Question/Shunt Follow Up Reason Comments PT Plan of Care Reason Comments Patient Update FYI-No Action Needed Reason Comments Transition Of Care Reason Comments Established Patient NPH, dehydration Reason Onset Date Comments Patient Outreach 02/25/2022 Reason Comments Established Patient Follow-Up Reason Comments Medication Problem Appointment Reason Comments Vomiting & Diarrhea Reason Comments Appointment LVM about appointmen t change per email Reason Comments Follow Up Reason Comments Well Woman Reason Comments Medication Question Reason Comments Med Change Request Reason Comments Constipation Reason Onset Date Comments Refill Request Refill Request 10/22/2022 Reason Comments Urine problem Reason Comments Consult Female stress incont inence Specialty Diagnoses / Procedures Referred By Contac t Referred To Contact Urology Diagnoses Female stress incontinence Procedures CONSULT TO UROLOGY OFFICE/OUTPATIENT NEW HIGH MDM 60-74 MINUTES Harsh Mcnair MD [address] [place] [address] Referral ID Status Reason Start Date Expiration Date V isits Requested Visits Authorized [id number] Closed PCP Requested Referral 12/25/2022 12/25/2023 1 1 Reason Comments Refill Request Reason Comments Patient Question Reason Onset Date Comments Refill Request 01/15/[address] Specialty Diagnoses / Procedures Referred By Contac t Referred To Contact CT IMAGING Diagnoses Other hydrocephalus (HCC) Procedures CT BRAIN WO IVCON CT HEAD/BRAIN W/O CONTRAST MATERIAL Ramírez Leavitt PA-C [address] [place] [address] Ct Imaging Referral ID Status Reason Start Date Expiration Date V isits Requested Visits Authorized [id number] Closed Auto-Generate d Referral 03/06/2022 04/05/2023 1 1 Reason Comments Medication Problem Reason Onset Date Comments Refill Request 04/02/2023 Reason Comments Follow Up admission to [facility]. Reason Comments medication quesitons Care Teams (unrecognized sec tion and content) Postal Inspector Relationship Specialty Start Date End Date Harsh Mcnair MD [address] [place] [address] PCP - General 07/16/09 Postal Inspector Relationship Specialty Start Date End Date Harsh Mcnair MD [address] [place] [address] PCP - General 07/16/09 Postal Inspector Relationship Specialty Start Date End Date Harsh Mcnair MD [address] [place] [address] PCP - General 07/16/09 Postal Inspector Relationship Specialty Start Date End Date Harsh Mcnair MD [address] [place] [address] PCP - General 07/16/09 Postal Inspector Relationship Specialty [place] [address] [place] [address], [place] [address] PCP - General 07/16/09 Postal Inspector Relationship Specialty Start Date End Date Harsh Mcnair MD [address] [place] [address] PCP - General 07/16/09 Postal Inspector Relationship Specialty Start Date End Date Harsh Mcnair MD [address] [place] [address] PCP - General 07/16/09 Postal Inspector Relationship Specialty Start Date End Date Harsh Mcnair MD [address] [place] [address] PCP - General 07/16/09 Postal Inspector Relationship Specialty Start Date End Date Harsh Mcnair MD [address] [place] [address] PCP - General 07/16/09 Postal Inspector Relationship Specialty Start Date End Date Harsh Mcnair MD [facility] [place] [address] PCP - General 07/16/09 Postal Inspector Relationship Specialty Start Date End Date Harsh Mcnair MD [address] [place] [address] PCP - General 07/16/09 Postal Inspector Relationship Specialty Start Date End Date Harsh Mcnair MD [address] [place] [address] PCP - General 07/16/09 Postal Inspector Relationship Specialty Start [place] [address] [place] [address], [place] [address] PCP - General 07/16/09 Postal Inspector Relationship Specialty Start Date End Date Harsh Mcnair MD [address] [place] [address], [place] [address] PCP - General 07/16/09 Postal Inspector Relationship Specialty Start Date End Date Harsh Mcnair MD [address] [place] [address] PCP - General 07/16/09 Postal Inspector Relationship Specialty Start Date End Date Harsh Mcnair MD [address] [place] [address] PCP - General 07/16/09 Postal Inspector Relationship Specialty Start Date End Date Harsh Mcnair MD [address] [place] [address] PCP - General 07/16/09 Postal Inspector Relationship Specialty Start Date End Date Harsh Mcnair MD [facility] [place] [address] PCP - General 07/16/09 Postal Inspector Relationship Specialty Start Date End Date Harsh Mcnair MD [facility] [place] [address] PCP - General 07/16/09 Postal Inspector Relationship Specialty Start Date End Date Harsh Mcnair MD [address] [place] [address] PCP - General 07/16/09 Postal Inspector Relationship Specialty Start Date End Date Harsh Mcnair MD [address] [place] [address] PCP - General 07/16/09 Postal Inspector Relationship Specialty Start Date End Date Harsh Mcnair MD [address] [place] [address] PCP - General 07/16/09 Postal Inspector Relationship Specialty Start Date End Date Harsh Mcnair MD [address] [place] [address] PCP - General 07/16/09 Postal Inspector Relationship Specialty Start Date End Date Harsh Mcnair MD [address] [place] [address] PCP - General 07/16/09 Postal Inspector Relationship Specialty Start Date End Date Harsh Mcnair MD [address] [place], [place] [address]- PCP - General 07/16/09 Postal Inspector Relationship Specialty Start Date End Date Harsh Mcnair MD [address] [place] [address] PCP - General 07/16/09 INFORMATION SOURCE (unrecogn ized section and content) FOR RECORDS PERTAINING TO PATIENTS WHO ARE OR HAVE BEEN ENROLLED IN A CHEMICAL DEPENDENCY/SUBSTANCEABUSE PROGRAM, SOME INFORMATION MAY BE OMITTED. This clinical summary was aggregated from multiple sources. Caution should be exercised in using it in the provision of clinical care. This summary normalizes information from multiple sources, and as a consequence, information in this document may materially change the coding, format and clinical context of patient data. In addition, data may be omitted in some cases. CLINICAL DECISIONS SHOULD BE BASED ON THE PRIMARY CLINICAL RECORDS. [facility]. provides no warranty or guarantee of the accuracy or completeness of information in this document.
[2023-09-16 07:06] LABS: Absolute Neutrophil Count 10.6 X10^3/uL (2.0-7.7); Basophil# 0.05 X10^3/uL; Basophil% 0.4 % (0-1); Eosinophil# 0.06 X10^3/uL; Eosinophils% 0.4 % (0-5); Hemoglobin 12.6 g/dL (12.0-15.0); Lymphocyte % 11.2 % (19-41); Mean Corp Hgb Conc 32.3 g/dL (32-36); Mean Corpuscular Hgb 28.1 pg (27.0-32.0); Mean Corpuscular Volume 87.1 fL (81-99); Mean Platelet Vol. 11.4 fl (6.2-12.0); Monocyte# 1.05 X10^3/uL; Monocyte% 7.9 % (0-10); NRBC Flagged by Analyzer 0 % (0-5); Neutrophil % 79.4 % (47-70); Platelet Count 188 K/mm3 (150-450); RBC Distribution Width CV 13.2 % (11.6-14.6); RBC Distribution Width SD 41.3 fl (35.1-43.9); Red Blood Count 4.48 M/mm3 (4.2-5.4); White Blood Count 13.4 K/mm3 (4.4-11.0)
[2023-09-16 07:42] LABS: Anion Gap 9 (5-15); BUN 21 mg/dL (7-18); BUN/Creat Ratio 20.2 RATIO (10-20); Calcium,Total 9.7 mg/dL (8.5-10.1); Chloride 104 mmol/L (98-107); Creatinine, Serum 1.04 mg/dL (0.55-1.02); EST Glomerular Filtration Rate 54 mL/min (>60); Est Glom Filt Rate - Afr Amer 65 mL/min (>60); Glucose 206 mg/dL (74-106); Potassium 4.1 mmol/L (3.5-5.1); Sodium Level 136 mmol/L (136-145)
== END ==
LOC: OLS.WHLTSB 04:00
PROVIDERS: PCP Family Medicine; Referring Provider Internal Medicine; Visit Provider Internal Medicine
DX: E11.9 Type 2 diabetes mellitus without complications (principal)
CPT/HCPCS: 36415; 80048; 85025

== ENCOUNTER → 2023-11-03 | Outpatient (REF) | payer MEDICARE, OTHER, SELFPAY ==
[2023-11-03 08:35] LABS: Absolute Lymphocyte Count 2.35 X10^3/uL (0.83-4.51); Basophil# 0.05 X10^3/uL; Basophil% 0.7 % (0-1); Eosinophil# 0.33 X10^3/uL; Eosinophils% 4.5 % (0-5); Hematocrit 34.7 % (37-47); Lymphocyte # 2.35 X10^3/ul (0.83-4.51); Lymphocyte % 31.8 % (19-41); Mean Corp Hgb Conc 31.7 g/dL (32-36); Mean Corpuscular Hgb 27.6 pg (27.0-32.0); Mean Platelet Vol. 10.5 fl (6.2-12.0); Monocyte# 0.66 X10^3/uL; Monocyte% 8.9 % (0-10); NRBC Flagged by Analyzer 0 % (0-5); Neutrophil # 3.99 X10^3/uL (2.7-7.7); Neutrophil % 53.8 % (47-70); Platelet Count 213 K/mm3 (150-450); RBC Distribution Width CV 13.9 % (11.6-14.6); RBC Distribution Width SD 43.9 fl (35.1-43.9); Red Blood Count 3.99 M/mm3 (4.2-5.4); White Blood Count 7.4 K/mm3 (4.4-11.0)
[2023-11-03 08:53] LABS: ALB/GLOB Ratio 1.1 RATIO (0.9-2.4); AST(SGOT) 17 U/L (15-37); Alanine Aminotransfer ALT/SGPT 19 U/L (13-56); Albumin, Serum 3.2 g/dL (3.2-5.0); Alkaline Phosphatase 59 U/L (45-117); Anion Gap 5 (5-15); BUN 14 mg/dL (7-18); BUN/Creat Ratio 14.6 RATIO (10-20); Calcium,Total 9.2 mg/dL (8.5-10.1); Chloride 105 mmol/L (98-107); Cholesterol 168 mg/dL (200); Creatinine, Serum 0.96 mg/dL (0.55-1.02); EST Glomerular Filtration Rate 59 mL/min (>60); Est Glom Filt Rate - Afr Amer 72 mL/min (>60); Glucose 118 mg/dL (74-106); High Density Lipoprotein 47 mg/dL; Protein, Total 6.2 g/dL (6.4-8.2); Sodium Level 138 mmol/L (136-145); Triglycerides 187 mg/dL; Very Low Density Lipoprotein 37 mg/dL (5-40)
[2023-11-03 13:40] LABS: Hemoglobin A1c 6.9 % (3.8-5.6)
== END ==
LOC: OLS.WHLTSB 05:00
PROVIDERS: PCP Family Medicine; Visit Provider Internal Medicine
DX: E11.9 Type 2 diabetes mellitus without complications (principal)
CPT/HCPCS: 36415; 80053; 80061; 83036; 85025

== ENCOUNTER → 2024-01-26 | Outpatient (REF) | payer MEDICARE, OTHER, SELFPAY ==
[2024-01-28 08:56] LABS: Color, Urine Yellow (Yellow); Glucose, Dipstick Normal (Normal); Ketone-Dipstick Negative (Negative); Leukocyte Esterase-Dipstick 100 /ul (Negative); Nitrite-Dipstick Negative (Negative); Occult Blood-Urine Negative /ul (Negative); Protein-Dipstick Negative (Negative); Urine Bilirubin Dipstick Negative (Negative); Urine Clarity Sl. Cloudy (Clear); Urine Urobilinogen Normal (Normal)
== END ==
LOC: OLS.WHLTSB 19:00
PROVIDERS: PCP Family Medicine; Visit Provider Nurse Practitioner Adult Health
DX: N39.0 Urinary tract infection, site not specified (principal)
CPT/HCPCS: 81002; 87077; 87086; 87088; 87186

== ENCOUNTER → 2024-02-02 | Outpatient (REF) | payer MEDICARE, OTHER, SELFPAY ==
[2024-02-02 08:21] LABS: Absolute Lymphocyte Count 2.42 X10^3/uL (0.83-4.51); Absolute Neutrophil Count 4.7 X10^3/uL (2.0-7.7); Basophil# 0.04 X10^3/uL; Basophil% 0.5 % (0-1); Eosinophil# 0.21 X10^3/uL; Eosinophils% 2.6 % (0-5); Hematocrit 38.5 % (37-47); Hemoglobin 12.5 g/dL (12.0-15.0); Lymphocyte # 2.42 X10^3/ul (0.83-4.51); Lymphocyte % 29.8 % (19-41); Mean Corp Hgb Conc 32.5 g/dL (32-36); Mean Corpuscular Volume 86.1 fL (81-99); Mean Platelet Vol. 10.3 fl (6.2-12.0); Monocyte# 0.68 X10^3/uL; Monocyte% 8.4 % (0-10); NRBC Flagged by Analyzer 0 % (0-5); Neutrophil # 4.74 X10^3/uL (2.7-7.7); Neutrophil % 58.3 % (47-70); Platelet Count 211 K/mm3 (150-450); RBC Distribution Width CV 13.3 % (11.6-14.6); RBC Distribution Width SD 41.8 fl (35.1-43.9); Red Blood Count 4.47 M/mm3 (4.2-5.4); White Blood Count 8.1 K/mm3 (4.4-11.0)
[2024-02-02 09:41] LABS: ALB/GLOB Ratio 1.2 RATIO (0.9-2.4); AST(SGOT) 16 U/L (15-37); Alanine Aminotransfer ALT/SGPT 18 U/L (13-56); Albumin, Serum 3.6 g/dL (3.2-5.0); Alkaline Phosphatase 71 U/L (45-117); Anion Gap 8 (5-15); BUN 16 mg/dL (7-18); Calcium,Total 9.1 mg/dL (8.5-10.1); Chloride 107 mmol/L (98-107); Cholesterol 123 mg/dL (200); Creatinine, Serum 1.07 mg/dL (0.55-1.02); EST Glomerular Filtration Rate 52 mL/min (>60); Est Glom Filt Rate - Afr Amer 63 mL/min (>60); Glucose 91 mg/dL (74-106); High Density Lipoprotein 46 mg/dL; Potassium 4.1 mmol/L (3.5-5.1); Protein, Total 6.6 g/dL (6.4-8.2); Sodium Level 139 mmol/L (136-145); Triglycerides 119 mg/dL; Very Low Density Lipoprotein 24 mg/dL (5-40)
== END ==
LOC: OLS.WHLTSB 05:00
PROVIDERS: PCP Family Medicine; Visit Provider Internal Medicine
DX: E11.9 Type 2 diabetes mellitus without complications (principal)
CPT/HCPCS: 36415; 80053; 80061; 83036; 85025

== ENCOUNTER → 2024-05-03 05:00 | Outpatient (REF) | payer MEDICARE, OTHER, SELFPAY ==
[2024-05-03 08:10] LABS: Absolute Lymphocyte Count 3.32 X10^3/uL (0.83-4.51); Absolute Neutrophil Count 4.7 X10^3/uL (2.0-7.7); Basophil# 0.06 X10^3/uL; Basophil% 0.7 % (0-1); Eosinophils% 2.2 % (0-5); Hematocrit 40.6 % (37-47); Hemoglobin 13.1 g/dL (12.0-15.0); Lymphocyte # 3.32 X10^3/ul (0.83-4.51); Mean Corp Hgb Conc 32.3 g/dL (32-36); Mean Corpuscular Hgb 28.3 pg (27.0-32.0); Mean Corpuscular Volume 87.7 fL (81-99); Mean Platelet Vol. 10.5 fl (6.2-12.0); Monocyte# 0.67 X10^3/uL; Monocyte% 7.5 % (0-10); NRBC Flagged by Analyzer 0 % (0-5); Neutrophil # 4.69 X10^3/uL (2.7-7.7); Neutrophil % 52.3 % (47-70); Platelet Count 220 K/mm3 (150-450); RBC Distribution Width CV 13.7 % (11.6-14.6); RBC Distribution Width SD 43.8 fl (35.1-43.9); Red Blood Count 4.63 M/mm3 (4.2-5.4)
[2024-05-03 11:59] LABS: ALB/GLOB Ratio 1.2 RATIO (0.9-2.4); AST(SGOT) 16 U/L (15-37); Alanine Aminotransfer ALT/SGPT 19 U/L (13-56); Albumin, Serum 3.9 g/dL (3.2-5.0); Alkaline Phosphatase 74 U/L (45-117); Anion Gap 9 (5-15); BUN 24 mg/dL (7-18); BUN/Creat Ratio 20.3 RATIO (10-20); Calcium,Total 9.8 mg/dL (8.5-10.1); Chloride 103 mmol/L (98-107); Cholesterol 139 mg/dL (200); Creatinine, Serum 1.18 mg/dL (0.55-1.02); EST Glomerular Filtration Rate 46 mL/min (>60); Est Glom Filt Rate - Afr Amer 56 mL/min (>60); Globulin 3.3 g/dL (2.2-4.2); Glucose 116 mg/dL (74-106); High Density Lipoprotein 53 mg/dL; Potassium 4.1 mmol/L (3.5-5.1); Protein, Total 7.2 g/dL (6.4-8.2); Sodium Level 138 mmol/L (136-145); Triglycerides 192 mg/dL; Very Low Density Lipoprotein 38 mg/dL (5-40)
[2024-05-03 15:43] LABS: Hemoglobin A1c 6.4 % (3.8-5.6)
== END ==
LOC: OLS.WHLTSB 05:00
PROVIDERS: PCP Family Medicine; Visit Provider Internal Medicine
DX: E11.9 Type 2 diabetes mellitus without complications (principal)
CPT/HCPCS: 36415; 80053; 80061; 83036; 85025

== ENCOUNTER → 2024-08-02 | Outpatient (REF) | payer MEDICARE, OTHER, SELFPAY ==
[2024-08-02 08:19] LABS: Absolute Lymphocyte Count 2.95 X10^3/uL (0.83-4.51); Absolute Neutrophil Count 4.4 X10^3/uL (2.0-7.7); Basophil# 0.05 X10^3/uL; Basophil% 0.6 % (0-1); Eosinophil# 0.19 X10^3/uL; Eosinophils% 2.3 % (0-5); Hematocrit 41.4 % (37-47); Hemoglobin 13.1 g/dL (12.0-15.0); Lymphocyte # 2.95 X10^3/ul (0.83-4.51); Lymphocyte % 35.8 % (19-41); Mean Corp Hgb Conc 31.6 g/dL (32-36); Mean Corpuscular Hgb 28.4 pg (27.0-32.0); Mean Corpuscular Volume 89.8 fL (81-99); Mean Platelet Vol. 10.4 fl (6.2-12.0); Monocyte# 0.62 X10^3/uL; Monocyte% 7.5 % (0-10); NRBC Flagged by Analyzer 0 % (0-5); Neutrophil # 4.39 X10^3/uL (2.7-7.7); Neutrophil % 53.4 % (47-70); Platelet Count 211 K/mm3 (150-450); RBC Distribution Width CV 13.1 % (11.6-14.6); RBC Distribution Width SD 42.7 fl (35.1-43.9); Red Blood Count 4.61 M/mm3 (4.2-5.4); White Blood Count 8.2 K/mm3 (4.4-11.0)
[2024-08-02 08:56] LABS: ALB/GLOB Ratio 1.2 RATIO (0.9-2.4); AST(SGOT) 20 U/L (15-37); Alanine Aminotransfer ALT/SGPT 23 U/L (13-56); Albumin, Serum 3.8 g/dL (3.2-5.0); Alkaline Phosphatase 74 U/L (45-117); Anion Gap 8 (5-15); BUN 20 mg/dL (7-18); BUN/Creat Ratio 19.4 RATIO (10-20); Calcium,Total 9.3 mg/dL (8.5-10.1); Chloride 104 mmol/L (98-107); Cholesterol 135 mg/dL (200); Creatinine, Serum 1.03 mg/dL (0.55-1.02); EST Glomerular Filtration Rate 54 mL/min (>60); Est Glom Filt Rate - Afr Amer 66 mL/min (>60); Globulin 3.2 g/dL (2.2-4.2); Glucose 158 mg/dL (74-106); High Density Lipoprotein 55 mg/dL; Potassium 4.5 mmol/L (3.5-5.1); Sodium Level 136 mmol/L (136-145); Triglycerides 153 mg/dL; Very Low Density Lipoprotein 31 mg/dL (5-40)
== END ==
LOC: OLS.WHLTSB 05:00
PROVIDERS: PCP Family Medicine; Visit Provider Internal Medicine
DX: E11.9 Type 2 diabetes mellitus without complications (principal)
CPT/HCPCS: 36415; 80053; 80061; 83036; 85025

== ENCOUNTER → 2024-11-02 | Outpatient (REF) | payer MEDICARE, OTHER, SELFPAY ==
[2024-11-02 08:21] LABS: Absolute Lymphocyte Count 2.46 X10^3/uL (0.83-4.51); Absolute Neutrophil Count 3.9 X10^3/uL (2.0-7.7); Basophil# 0.06 X10^3/uL; Basophil% 0.8 % (0-1); Eosinophil# 0.19 X10^3/uL; Eosinophils% 2.6 % (0-5); Hematocrit 38.7 % (37-47); Hemoglobin 12.5 g/dL (12.0-15.0); Lymphocyte # 2.46 X10^3/ul (0.83-4.51); Lymphocyte % 34.1 % (19-41); Mean Corp Hgb Conc 32.3 g/dL (32-36); Mean Corpuscular Hgb 28.7 pg (27.0-32.0); Mean Corpuscular Volume 88.8 fL (81-99); Mean Platelet Vol. 10.6 fl (6.2-12.0); Monocyte# 0.58 X10^3/uL; NRBC Flagged by Analyzer 0 % (0-5); Neutrophil # 3.89 X10^3/uL (2.7-7.7); Neutrophil % 53.9 % (47-70); Platelet Count 186 K/mm3 (150-450); RBC Distribution Width CV 12.7 % (11.6-14.6); RBC Distribution Width SD 41.3 fl (35.1-43.9); Red Blood Count 4.36 M/mm3 (4.2-5.4); White Blood Count 7.2 K/mm3 (4.4-11.0)
[2024-11-02 09:23] LABS: AST(SGOT) 23 U/L (<=31); Alanine Aminotransfer ALT/SGPT 17 U/L (<=34); Albumin, Serum 4.2 g/dL (3.4-4.8); Alkaline Phosphatase 70 U/L (35-104); Anion Gap 14 (5-15); BUN 17 mg/dL (4-19); BUN/Creat Ratio 18.1 RATIO (10-20); Calcium 9.6 mg/dL (7.6-11.0); Carbon Dioxide 23.9 mmol/L (22.0-29.0); Chloride 101 mmol/L (96-108); Cholesterol 128 mg/dL (<=200); Creatinine, Serum 0.9 mg/dL (0.6-1.0); EST Glomerular Filtration Rate 61 (>60); Globulin 2.1 g/dL (2.2-4.2); Glucose 106 mg/dL (70-99); High Density Lipoprotein 51 mg/dL; Low Density Lipoprotein Calc. 55 mg/dL; Potassium 4.1 mmol/L (3.3-5.1); Protein, Total 6.3 g/dL (5.9-8.4); Sodium Level 139 mmol/L (133-145); Total Bilirubin 0.16 mg/dL (0.00-1.30); Triglycerides 110 mg/dL; Very Low Density Lipoprotein 22 mg/dL (5-40); cholesterol:hdl ratio screen 2.53
[2024-11-02 18:48] LABS: Hemoglobin A1c 7.4 % (<=5.6)
== END ==
LOC: OLS.WHLTSB 05:00
PROVIDERS: PCP Family Medicine; Visit Provider Internal Medicine
DX: E11.9 Type 2 diabetes mellitus without complications (principal); F02.80 Dementia in other diseases classified elsewhere, unspecified severity, without behavioral disturbance, psychotic disturbance, mood disturbance, and anxiety; D18.01 Hemangioma of skin and subcutaneous tissue
CPT/HCPCS: 36415; 80053; 80061; 83036; 85025

== ENCOUNTER → 2025-01-31 05:00 | Outpatient (REF) | payer MEDICARE, OTHER, SELFPAY ==
[2025-01-31 09:05] LABS: Absolute Lymphocyte Count 2.14 X10^3/uL (0.83-4.51); Absolute Neutrophil Count 4.4 X10^3/uL (2.0-7.7); Basophil# 0.05 X10^3/uL; Basophil% 0.7 % (0-1); Eosinophil# 0.15 X10^3/uL; Eosinophils% 2.1 % (0-5); Hematocrit 41.1 % (37-47); Hemoglobin 13.1 g/dL (12.0-15.0); Lymphocyte # 2.14 X10^3/ul (0.83-4.51); Lymphocyte % 29.4 % (19-41); Mean Corp Hgb Conc 31.9 g/dL (32-36); Mean Corpuscular Hgb 28.4 pg (27.0-32.0); Mean Platelet Vol. 10.1 fl (6.2-12.0); Monocyte# 0.49 X10^3/uL; Monocyte% 6.7 % (0-10); NRBC Flagged by Analyzer 0 % (0-5); Neutrophil # 4.43 X10^3/uL (2.7-7.7); Neutrophil % 60.7 % (47-70); Platelet Count 192 K/mm3 (150-450); RBC Distribution Width CV 12.8 % (11.6-14.6); RBC Distribution Width SD 41.5 fl (35.1-43.9); Red Blood Count 4.62 M/mm3 (4.2-5.4); White Blood Count 7.3 K/mm3 (4.4-11.0)
[2025-01-31 09:17] LABS: Hemoglobin A1c 8.1 % (<=5.6)
[2025-01-31 09:21] LABS: Cholesterol 141 mg/dL (<=200); High Density Lipoprotein 56 mg/dL; Low Density Lipoprotein Calc. 56 mg/dL; Triglycerides 149 mg/dL; Very Low Density Lipoprotein 30 mg/dL (5-40); cholesterol:hdl ratio screen 2.54
[2025-01-31 09:36] LABS: ALB/GLOB Ratio 1.8 RATIO (0.9-2.4); AST(SGOT) 20 U/L (<=31); Alanine Aminotransfer ALT/SGPT 10 U/L (<=34); Albumin, Serum 4.5 g/dL (3.4-4.8); Alkaline Phosphatase 72 U/L (35-104); Anion Gap 12 (5-15); BUN 15 mg/dL (4-19); BUN/Creat Ratio 14.8 RATIO (10-20); Calcium,Total 9.7 mg/dL (7.6-11.0); Carbon Dioxide 22.5 mmol/L (21.0-32.0); Chloride 102 mmol/L (98-108); Creatinine, Serum 0.98 mg/dL (0.70-1.20); EST Glomerular Filtration Rate 57 (>60); Globulin 2.5 g/dL (2.2-4.2); Glucose 182 mg/dL (70-99); Potassium 4.9 mmol/L (3.3-5.1); Protein, Total 6.9 g/dL (5.9-8.4); Sodium Level 136 mmol/L (133-145); Total Bilirubin 0.23 mg/dL (0.00-1.30)
== END ==
LOC: OLS.WHLTSB 05:00
PROVIDERS: PCP Family Medicine; Visit Provider Internal Medicine
DX: E11.9 Type 2 diabetes mellitus without complications (principal)
CPT/HCPCS: 36415; 80053; 80061; 83036; 85025

== ENCOUNTER → 2025-04-26 05:00 | Outpatient (REF) | payer MEDICARE, OTHER, SELFPAY ==
--- OUTSIDE RECORDS SUMMARY | 2025-04-26 03:49 | XMS RPT_ITS | CCD ---
Author Organization [facility] Care Team Providers Care Head Mixer Name Role Phone Harsh Mcnair MD Primary Care Provider Dr. Jesus Pete Emergency Provider Dr. Harsh Mcnair Primary Care Provider Dr. Shahrzad Johnson Admit Provider Dr. Shahrzad Johnson Other Provider Dr. Ray Aviles Attending Provider Dr. Ray Aviles Other Provider Dr. Shahrzad Johnson Referring Provider Harsh Mcnair MD Primary Care Provider Harsh Mcnair MD Primary Care Provider Harsh Mcnair MD Primary Care Provider Dr. Harsh Mcnair Primary Care Provider Yasmine SAND CUTTER OPERATOR, JESSE-Celeste Rasheed Attending Provider Unav ailable Dr. Harsh Mcnair Primary Care Provider Yasmine MOLINA NP-Celeste Rasheed Attending Provider Harsh Mcnair MD Primary Care Provider Manpreet Ivy Primary Care Provider HARSH MCNAIR Primary Care Unavailable RAMÍREZ LEAVITT Referring Unavailable HARSH MCNAIR Primary Care Unavailable HARSH MCNAIR Attending Unavailable KENNETH PARK Attending Unavailable HARSH MCNAIR Primary Care Unavailable HARSH MCNAIR Referring Unavailable HARSH MCNAIR Primary Care Unavailable HARSH MCNAIR Referring Unavailable SCHWIETERMAN, RAMÍREZ Referring Unavailable HARSH MCNAIR Primary Care Unavailable SCHWIETERMAN, RAMÍREZ Attending Unavailable SCHWMELISSA, RAMÍREZ Referring Unavailable HARSH MCNAIR Primary Care Unavailable LAQUITA COULTER Attending Unavailable HARSH MCNAIR Primary Care Unavailable MARCELO MANCIIN Attending Unavailable HARSH MCNAIR Primary Care Unavailable SCHWMELISSA, RAMÍREZ Referring Unavailable HARSH MCNAIR Primary Care Unavailable RAMÍREZ LEAVITT Attending Unavailable Dr. Harsh Mcnair MD Primary Care Provider Manpreet Ivy MD Attending Provider Unavailkalli Underwood SAND CUTTER OPERATOR-C, Kathya Attending Provider Dr. Harsh Mcnair MD Primary Care Provider Manpreet Ivy MD Attending Provider UnavailHarsh Peguero Primary Care Unavailable Yasmine SAND CUTTER OPERATOR, Kathya Attending Unavailable Manpreet Ivy Attending Unavailable Harsh Mcnair Primary Care Unavailable Harsh Mcnair Primary Care Unavailable Biju DICKINSON, Efewongbe Attending UnavailHarsh Mix Primary Care Unavailable Biju OLS, Efewongbe Attending UnavailHarsh Mix Primary Care Unavailable Biju DICKINSON Efewongbe Attending UnavailHarsh Mix Primary Care Unavailable Biju DICKINSON, Efewongbe Attending Unavailjose Underwood SAND CUTTER OPERATOR, Kathya Attending Unavailable Xu, Harsh Primary Care Unavailable Allergies Allergy Classification Reported Allergen(s) Allergy Type Date of Onset Reaction(s) Facility (20 sources) Iodine; Translations: [IODINE] Drug Allergy 04-30-2005 Intolerance [facility] Work Phone: (20 sources) Penicillins; Translations: [PENICILLINS] Allergy to substance 03-03-2006 Anaphylaxis [facility] (1 source) Iodine Drug Allergy 07-22-2022 [facility] Repository Medications Current Medications Medication Drug Class(es) Dates Sig (Normalized) Sig (Original) acetaminophen 325 mg oral tablet (20 sources) Start: 02-16-2020 take 2 tablets by mouth every four hours as needed acetaminophen (TYLENOL) 325 mg tablet Take 2 tablets by mouth every 4 hours as needed. 02/16/2020 Active Comment on above: Take 2 tablets by mo [facility] every 4 hours as needed. aspirin 81 mg delayed release oral tablet (20 sources) Platelet Aggregation Inhibitor, Nonsteroidal Anti-inflammatory Drug Start: 01-10-2019 take 1 tablet by mouth once daily Aspirin 81 mg tablet,delayed release (DR/EC) Active 81 mg PO DAILY January 10, 2019 12:00am Comment on above: Take 1 tablet by thomas once daily. biotin 10 mg oral tablet (11 sources) Start: 01-10-2019 take 1 tablet by mouth once daily Biotin 10 mg tablet Active 10 mg PO DAILY January 10, 2019 12:00am calcium carbonate 1500 mg / cholecalciferol 200 unt oral tablet (20 sources) Vitamin D Start: 12-20-2018 take 1 tablet by mouth once daily calcium carbonate 600 mg-cholecalciferol 200 units 600 mg-5 mcg (200 unit) tab Take 1 tablet by mouth once daily. 12/20/2018 Active Comment on above: Take 1 tablet by [facility] once daily. carbidopa 25 mg / levodopa 100 mg oral tablet (20 sources) Aromatic Amino Acid Decarboxylation Inhibitor, Aromatic Amino Acid Start: 02-22-2022 Carbidopa-Levodopa 25-100 mg Tablet Active 1 {tbl} PO DAILY February 22, 2022 12:00am Check with primary doctor Start: 02-22-2022 End: 02-24-2022 Carbidopa-Levodopa 25-100 mg Tablet Active 1 {tbl} PO AT BEDTIME February 22, 2022 12:00am Start: 02-22-2022 take 1 tablet by [facility] once daily Carbidopa-Levodopa Active 1 TABLET PO DAILY February 21, 2022 11:00pm Start: 02-22-2022 End: 02-24-2022 take 1 tablet by mouth at bedtime Carbidopa-Levodopa Active 1 TABLET PO AT BEDTIME February 21, 2022 11:00pm Start: 07-09-2021 End: 01-06-2022 carbidopa-levodopa (SINEMET 25-100) 25-100 mg per tablet Indications: Vascular parkinsonism (HCC) 1 tablet in the AM, 0.5 tablets in the middle of the day, 1 tablet in the PM 225 tablet 10/03/2021 01/06/2022 Discontinued Comment on above: 1 tablet in the AM, 0.5 tablets in the middle of the day, 1 tablet in the PM cholecalciferol 0.025 mg oral capsule (20 sources) Vitamin D Start: 01-11-20 19 take 2 capsules by mouth once daily Cholecalciferol (Vitamin D3) 1,000 unit capsule Active 2000 U PO DAILY January 10, 2019 12:00am Start: 10-25-2012 take 1 capsule by mo [facility] once daily Cholecalciferol, Vitamin D3, 1,000 unit cap Take 1 capsule by mouth once daily. 0 10/25/2012 Active Comment on above: Take 1 capsule by mo [facility] once daily. docusate sodium 100 mg oral capsule (20 sources) Start: 01-10-2019 take 1 capsule by mouth once daily Docusate Sodium (Colace) 100 mg capsule Active 100 mg PO DAILY January 10, 2019 12:00am Start: 08-18-2005 STOOL SOFTENER 100 MG CAP Take 200 mg by mouth once daily. 0 08/18/2005 Active Comment on above: Take 200 mg by mouth once daily. donepezil hydrochloride 5 mg oral tablet (17 sources) Start: 3 take 1 tablet by mouth once daily at breakfast donepezil (ARICEPT) 5 mg tablet Indications: 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) Take 1 tablet by mouth daily with breakfast. 90 tablet 1 01/26/2023 Active Start: 10-27-2022 take 1 tablet by thomas th once daily at breakfast donepezil (ARICEPT) 5 mg tablet Indications: 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) Take 1 tablet by mouth daily with breakfast. 90 tablet 1 10/27/2022 Active Comment on above: Take 1 tablet by thomas th daily with breakfast. glimepiride 4 mg oral tablet (20 sources) Sulfonylurea Start: 9 End: 2 take 1 tablet by mouth once daily in the morning Glimepiride 4 mg tablet Active 4 mg PO EVERY MORNING January 10, 2019 12:00am Comment on above: Take 1 tablet by thomas th daily with breakfast. Ihvzvvss-Dlayl-Xxf9- C-Jose Luis-Bor (7 sources) Start: 9 take 1 tablet by mouth once daily Dzcihanp-Wjgwg-Gzw7 -C-Jose Luis-Bor Active 1 TABLET PO DAILY January 10, 2019 1:41pm Start: 01-10-2019 take 1 tablet by thomas th once daily Awpygqtq-Fgldh-Fym6-C-Jose Luis-Bor Active 1 TABLET PO DAILY January 09, 2019 11:00pm Start: 01-10-2019 take 1 tablet by thomas th once daily Sucigagy-Uzfba-Gbq4-C-Jose Luis-Bor Active 1 TABLET PO DAILY January 10, 2019 12:00am Amcsvxmb-Sggmx-Dxb2-C-Jose Luis-B or [id number] mg tablet (4 sources) Start: 01-10-2019 Fontafct-Yfafy-Lve4-C-Jose Luis-B or [id number] mg tablet Active 1 {tbl} PO DAILY 0 January 10, 2019 12:00am Start: 01-10-2019 Glucosam-Chond -Xob3-T-Hgsy-Bor [id number] mg tablet Active 1 {tbl} PO DAILY January 10, 2019 12:00am glucosamine HCl/chondroitin romano (GLUCOSAMINE-CHONDROITIN ORAL) (20 sources) glucosamine HCl/ chondroitin romano (GLUCOSAMINE-CHONDROITIN ORAL) Take by mouth once daily. Active glucosamine HCl/ chondroitin romano (GLUCOSAMINE-CHONDROITIN ORAL) Take by mouth once daily. 0 Active Comment on above: Take by mouth once d aily. Lactobacillus acidophilus (20 sources) Lactobacillus ac idophilus (PROBIOTIC ORAL) Take by mouth once daily. Active Lactobacillus ac idophilus (PROBIOTIC ORAL) Take by mouth once daily. 0 Active Comment on above: Take by mouth once d aily. linagliptin 5 mg oral tablet (6 sources) Dipeptidyl Peptidase 4 Inhibitor Start: 3 take 1 tablet by mouth once daily linaGLIPtin (TRADJENTA) 5 mg tab Indications: type 2 diabetes mellitus Take 1 tablet by mouth once daily. 30 tablet 11 02/06/2023 Active Comment on above: Take 1 tablet by thomas th once daily. meloxicam 7.5 mg oral tablet (20 sources) Nonsteroidal Anti-inflammatory Drug Start: 3 End: 3 take 1 tablet by mouth once daily at mealtime meloxicam (MOBIC) 7.5 mg tablet Indications: Cervical spondylosis , Neural foraminal stenosis of cervical spine , Bilateral hand numbness Take 1 tablet by mouth once daily. Take with food. 30 tablet 5 04/03/2023 Active Start: 03-12-2021 End: 03-03-2022 take 1 tablet by mouth once daily at mealtime meloxicam (MOBIC) 7.5 mg tablet Indications: Cervical spondylosis , Neural foraminal stenosis of cervical spine , Bilateral hand numbness Take 1 tablet by mouth once daily. Take with food. 30 tablet 5 09/18/2021 03/03/2022 Discontinued Start: 01-10-2019 take 7.5 mg by mouth once ricardo y Meloxicam (Mobic) 15 mg tablet Active 7.5 mg PO DAILY January 10, 2019 12:00am Comment on above: Take 1 tablet by thomas th once daily. Take with food. 24 hr mirabegron 25 mg extended release oral tablet (2 sources) beta3-Adrenergic Agonist Start: 10-01-2022 End: 10-03-2022 take 1 tablet by mouth once daily mirabegron (MYRBETRIQ) 25 mg Tb24 Indications: Female stress incontinence Take 1 tablet by mouth once daily. 30 tablet 5 10/01/2022 10/03/2022 Discontinued Comment on above: Take 1 tablet by thomas th once daily. Multivitamin-Mineral s-Lutein (7 sources) Start: 01-10-2019 take 1 tablet by mouth once daily Multivitamin-Minerals- Lutein Active 1 TABLET PO DAILY January 10, 2019 1:41pm Start: 01-10-2019 take 1 tablet by thomas th once daily Aahtbhtlfgak-Nphgjnrn-Niaabd Active 1 TA BLET PO DAILY January 09, 2019 11:00pm Start: 01-10-2019 take 1 tablet by thomas th once daily Ccxegtkawctn-Hhvgpihw-Psdylm Active 1 TA BLET PO DAILY January 10, 2019 12:00am Zrhuayafzwjk-Bcugyepp-Tgccgm tablet (4 sources) Start: 01-10-2019 Bqttfpvbbrss-Chswsitj-Zxdimu tablet Active 1 {tbl} PO DAILY January 10, 2019 12:00am multivitamins(DAILY MULTIPLE TAB) (20 sources) Start: 11-09-2008 multivitamins(DAILY MULTIPLE TAB) Take one(1) tablet daily. 0 11/09/2008 Active Comment on above: Take one(1) tablet d aily. ondansetron 4 mg disintegrating oral tablet (9 sources) Serotoni n-[address] Start: 07-23-2022 take 1 tablet by mouth three times daily as needed for nausea and vomiting Ondansetron 4 mg tablet,disintegrating Active 4 mg PO THREE TIMES A DAY as needed for nausea and vomiting July 23, 2022 3:55am Start: 09-04-2021 take 4 mg by mouth e very eight hours as needed Ondansetron Active 4 MG PO EVERY 8 HOURS NEEDED September 04, 2021 2:36pm 24 hr oxybutynin chloride 5 mg extended release oral tablet (20 sources) Cholinergic Muscarinic Antagonist Start: 01-21-2021 End: 10-01-2022 take 1 tablet by mouth once daily Oxybutynin Chloride 5 mg tablet extended release 24hr Active 5 mg PO DAILY February 22, 2022 12:00am overactive bladder Comment on above: Take 1 tablet by [facility] once daily. Psyllium (5 sources) Start: 02-22-2022 take 8 [oz_av] by mouth twice daily Psyllium Active 1 PACKET PO TWICE A DAY February 21, 2022 11:00pm mix into at least 8 oz of water or juice before administering Start: 02-22-2022 take 8 [oz_av] by [facility] twice daily Psyllium Active 1 PACKET PO TWICE A DAY February 22, 2022 12:00am mix into at least 8 oz of water or juice before administering Psyllium Packet (4 sources) Start: 02-22-2022 take 8 [oz_av] by mouth twice daily Psyllium Packet Active 1 NMA PO TWICE A DAY February 22, 2022 12:00am constipation mix into at least 8 oz of water or juice before administering Start: 02-22-2022 take 8 [oz_av] by [facility] twice daily Psyllium Packet Active 1 NMA PO TWICE A DAY February 22, 2022 12:00am mix into at least 8 oz of water or juice before administering sertraline 100 mg oral tablet (20 sources) Serotonin Reuptake Inhibitor Start: 01-10-2019 End: 01-15-2023 take 2 tablets by mouth once daily Sertraline (Zoloft) 100 mg tablet Active 200 mg PO DAILY January 10, 2019 12:00am depression Start: 01-10-2019 take 1 tablet by thomas once daily Sertraline (Zoloft) 100 mg tablet Active 100 MG PO DAILY January 10, 2019 1:42pm Comment on above: Take 2 tablets by mo [facility] once daily. simvastatin 40 mg oral tablet (20 sources) HMG-CoA Reductase Inhibitor Start: 9 End: 2 take 1 tablet by mouth at bedtime Simvastatin (Zocor) 40 mg tablet Active 40 mg PO AT BEDTIME January 10, 2019 12:00am Comment on above: Take 1 tablet by thomas th once daily. SITagliptin 100 mg oral tablet (20 sources) Dipeptidyl Peptidase 4 Inhibitor Start: 0 End: 3 take 1 tablet by mouth once daily Sitagliptin Phosphate 100 tablet Active 100 mg PO DAILY October 12, 2019 1:00am diabetes Comment on above: Take 1 tablet by thomas th once daily. ubidecarenone 75 mg oral capsule (1 source) Start: 9 Coenzyme Q10 (Ultra Coq10) 75 mg capsule Active 75 MG PO DAILY January 10, 2019 1:41pm vibegron (GEMTESA) 75 mg tablet (19 sources) Start: 3 take 1 tablet by mouth once daily vibegron (GEMTESA) 75 mg tablet Indications: Female stress incontinence Take 1 tablet by mouth once daily. 90 tablet 1 04/01/2023 Active Start: 10-03-2022 take 1 tablet by thomas th once daily vibegron (GEMTESA) 75 mg tablet Indications: Female stress incontinence Take 1 tablet by mouth once daily. 90 tablet 1 10/03/2022 Active Comment on above: Take 1 tablet by thomas once daily. Zinc (9 sources) Start: 02-22-2022 take 1 tablet by mouth once daily Zinc 50 mg Tablet Active 50 mg PO DAILY February 22, 2022 12:00am Start: 02-22-2022 take 50 mg by mouth once daily Zinc Active 50 MG PO DAILY February 21, 2022 11:00pm Start: 02-22-2022 take 50 mg by mouth once daily Zinc Active 50 MG PO DAILY February 22, 2022 12:00am Completed/Discontinued Medications Medication Drug Class(es) Dates Sig (Normalized) Sig (Original) metFORMIN hydrochloride 500 mg oral tablet (20 sources) Biguanide Start: 10-12-2019 take 500 mg by mouth once daily Metformin Active 500 MG PO DAILY October 12, 2019 12:21pm Start: 10-12-2019 End: 10-22-2022 take 2 tablets by mouth twice daily Metformin 500 MG tablet Active 1000 mg PO TWICE A DAY October 12, 2019 1:00am diabetes Start: 10-12-2019 take 1000 mg by mouth twice da kenyon Metformin Active 1000 MG PO TWICE A DAY October 12, 2019 12:00am Comment on above: Take two tablets by mouth in the morning. Take two tablets by mouth with dinner. OTC NUTRITIONAL SUPPLEMENT (20 sources) End: 04-17-2023 OTC NUTRITIONAL SUPPLEMENT once daily. Prevagen 0 04/17/2023 Discontinued OTC NUTRITIONAL SUPPLEMENT once daily. Prevagen 0 Active Comment on above: once daily. Prevagen Problems Active Problems Problem Classification Problem Date Documented Date Episodic/Chronic Conditions associated with dizziness or vertigo (12 sources) Dizziness; Translations: [Dizziness and giddiness] Episodic Delirium, dementia, and amnestic and other cognitive disorders (8 sources) Neurocognitive disorder; Translations: [Unspecified dementia without behavioral disturbance] Onset: 04-17-20 Chronic Diabetes mellitus without complication (20 sources) Diabetes mellitus; Translations: [Type 2 diabetes mellitus without complications] Onset: 08-18-2002-16-2020 Chronic Disorders of lipid metabolism (20 sources) Hyperlipidemia; Translations: [Hyperlipidemia, unspecified] Onset: 08-03-2002-16-2020 Chronic E Codes: Adverse effects of medical drugs (1 source) Adverse reaction to drug; Translations: [Adverse effect of unspecified drugs, medicaments and biological substances, initial encounter] Episodic Essential hypertension (20 sources) Benign essential hypertension; Translations: [Essential (primary) hypertension] Onset: 07-23-20 10 07-23-2010 Chronic Fluid and electrolyte disorders (19 sources) Dehydration; Translations: [Dehydration] Episodic Genitourinary symptoms and ill-defined conditions (20 sources) Female stress incontinence; Translations: [Stress incontinence (female) (male)] Onset: 08-21-20 08 08-21-2008 Chronic Genitourinary symptoms and ill-defined conditions (1 source) Retention of urine; Translations: [Retention of urine, unspecified] Episodic Menopausal disorders (20 sources) Atrophic vaginitis; Translations: [Postmenopausal atrophic vaginitis] Onset: 08-21-20 08 Resolved : 07-23-20 10 08-21-2008 Chronic Mood disorders (20 sources) Depressive disorder; Translations: [Depression] Onset: 08-22-20 Chronic Nausea and vomiting (9 sources) Nausea and vomiting; Translations: [Nausea with vomiting, unspecified] Episodic Nonmalignant breast conditions (20 sources) Fibrocystic disease of breast; Translations: [Diffuse cystic mastopathy of unspecified breast] Onset: 12-23-19 06 12-22-2005 Chronic Other aftercare (1 source) Post-discharge follow-up; Translations: [Encounter for follow-up examination after completed treatment for conditions other than malignant neoplasm] Episodic Other circulatory disease (10 sources) Orthostatic hypotension; Translations: [Orthostatic hypotension] 03-04-2022 Episodic Other circulatory disease (2 sources) Orthostatic hypotension; Translations: [Orthostatic hypotension] Episodic Other gastrointestinal disorders (1 source) Chronic constipation; Translations: [Other constipation] 04-16-2023 Episodic Other hereditary and degenerative nervous system conditions (20 sources) System disorder of the nervous system; 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] Onset: 03-03-20 06 03-03-2006 Chronic Other lower respiratory disease (1 source) H/O: pneumonia; Translations: [Personal history of pneumonia (recurrent)] 10-09-2021 Episodic Other lower respiratory disease (1 source) Cough; Translations: [Cough] 09-03-2021 Episodic Other nervous system disorders (20 sources) Vascular parkinsonism; 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 Other nervous system disorders (20 sources) Normal pressure hydrocephalus; Translations: [(Idiopathic) normal pressure hydrocephalus] Onset: 10-13-19 Resolved : 04-19-20 20 04-13-2020 Chronic Other nervous system disorders (10 sources) Unable to walk; Translations: [Difficulty in walking, not elsewhere classified] 03-04-2022 Chronic Other nervous system disorders (2 sources) Difficulty in walking, not elsewhere classified; Translations: [Difficulty in walking] Chronic Other nervous system disorders (4 sources) Hydrocephalus; Translations: [Other hydrocephalus] Chronic Other nervous system disorders (1 source) Ventriculoperitoneal shunt in situ; Translations: [Presence of cerebrospinal fluid drainage device] Chronic Other nervous system disorders (1 source) Other hydrocephalus; Translations: [Other hydrocephalus (HCC)] Onset: 02-06-20 Chronic Other nervous system disorders (1 source) H/O: brain disorder; Translations: [Personal history of other diseases of the nervous system and sense organs] Episodic Other nervous system disorders (1 source) Personal history of other diseases of the nervous system and sense organs; Translations: [Personal history of other disorders of nervous system and sense organs] Episodic Other nervous system disorders (2 sources) Numbness of hand; Translations: [Anesthesia of skin] Episodic Other nervous system disorders (1 source) Impairment of balance; Translations: [Other abnormalities of gait and mobility] 04-17-2023 Episodic Other nutritional; endocrine; and metabolic disorders (20 sources) Obese class I; Translations: [Obesity, unspecified] Onset: 04-13-2004-13-2020 Chronic Other nutritional; endocrine; and metabolic disorders (1 source) H/O: diabetes mellitus; Translations: [Personal history of other endocrine, nutritional and metabolic disease] Episodic Other nutritional; endocrine; and metabolic disorders (1 source) Personal history of other endocrine, nutritional and metabolic disease; Translations: [Personal history of other endocrine, metabolic, and immunity disorders] Episodic Other screening for suspected conditions (not mental disorders or infectious disease) (12 sources) Mammography abnormal; Translations: [Other abnormal and inconclusive findings on diagnostic imaging of breast] Episodic Prolapse of female genital organs (20 sources) Midline cystocele; Translations: [Cystocele, midline] Onset: 08-21-20 08 08-21-2008 Chronic Residual codes; unclassified (9 sources) Sleep apnea; Translations: [Sleep apnea, unspecified] 02-21-2022 Chronic Residual codes; unclassified (9 sources) Dependence on continuous positive airway pressure ventilation; Translations: [Dependence on other enabling machines and devices] 02-21-2022 Chronic Residual codes; unclassified (1 source) Memory impairment; Translations: [Other amnesia] Episodic Spondylosis; intervertebral disc disorders; other back problems (20 sources) Cervical spondylosis; Translations: [Spondylosis without myelopathy or radiculopathy, cervical region] Onset: 06-17-20 19 06-17-2019 Chronic Spondylosis; intervertebral disc disorders; other back problems (20 sources) Stenosis of intervertebral foramina; Translations: [Spinal stenosis, cervical region] 06-17-2019 Episodic Viral infection (1 source) Disease caused by 2019-nCoV; Translations: [COVID-19] 10-09-2021 Episodic Past or Other Problems Problem Classification Problem Date Documented Da te Episodic/Chronic Other and unspecified benign neoplasm (1 source) Hemangioma of skin and subcutaneous tissue; Translations: [Hemangioma of skin and subcutaneous tissue] Onset: 12-08-2024 Episodic Other gastrointestinal disorders (2 sources) Other constipation; Translations: [Chronic constipation] Onset: 04-17-2023 Episodic Other nervous system disorders (3 sources) Postoperative pain ; Translations: [Other acute postprocedural pain] Onset: 04-13-2020 Resolved: 04-19-2020 04-19-2020 Episodic Other non-traumatic joint disorders (1 source) Joint disorder, unspecified; Translations: [Joint disorder, unspecified] Onset: 05-24-2024 Episodic Other skin disorders (1 source) Actinic keratosis; Translations: [Actinic keratosis] Onset: 12-08-2024 Episodic Results Test Name Value Interpretation Reference Range Facility Absolute lymphocyte countOrd ered By: Manpreet Ivy on 01-31-2025 Lymphocytes Auto (Unsp spec) [#/Vol] 2.14 10*3/uL 0.83-4.51 [facility] Absolute neutrophil countOrd ered By: Manpreet Ivy on 01-31-2025 Neutrophils (Bld) [#/Vol] 4.4 10*3/uL 2.0-7.7 [facility] Anion gap in Serum or Plasma Ordered By: Manpreet Ivy on 01-31-2025 Anion gap [Moles/Vol] 12 mmol/L 5-15 [facility] Automated lymphocyte count a s percentage of total leukocytesOrdered By: Manpreet Ivy on 01-31-2025 Lymphocytes/100 WBC Auto (Unsp spec) 29.4 % 19-41 [facility] BUN/creatinine ratioOrdered By: Manpreet Ivy on 01-31-2025 Urea nitrogen/Creatinine [Mass ratio] 14.8 mg/mg 10-20 [facility] Basophil percentageOrdered B y: Manpreet Ivy on 01-31-2025 Basophils/100 WBC (Bld) 0.7 % 0-1 [facility] Bilirubin, totalOrdered By: Manpreet Ivy on 01-31-2025 Bilirubin [Mass/Vol] 0.23 mg/dL 0.00-1.30 [facility] Calculated very low density lipoprotein (VLDL) cholesterol measurementOrdered By: Manpreet Ivy on 01-31-2025 Calculated very low density lipoprotein (VLDL) cholesterol measurement 30 mg/dL 5-40 [facility] Carbon dioxide, total [Moles /volume] in Central venous bloodOrdered By: Manpreet Ivy on 01-31-2025 CO2 [Moles/Vol] 22.5 mmol/L 21.0-32.0 [facility] Chloride assayOrdered By: Bailey Ivy on 01-31-2025 Chloride [Moles/Vol] 102 mmol/L 98-108 [facility] Eosinophil percentageOrdered By: Manpreet Ivy on 01-31-2025 Eosinophils/100 WBC (Bld) 2.1 % 0-5 [facility] Erythrocyte distribution wid th ratioOrdered By: Manpreet Ivy on 01-31-2025 Erythrocyte distribution width (RBC) [Ratio] 12.8 % 11.6-14.6 [facility] Erythrocyte distribution wid th standard deviationOrdered By: Manpreet Ivy on 01-31-2025 Erythrocyte distribution width (RBC) [Ratio] 41.5 fl 35.1-43.9 [facility] Glomerular filtration rate ( GFR) estimation/1.73 sq m using serum, plasma, or whole bOrdered By: Manpreet Ivy on 01-31-2025 GFR/1.73 sq M.predicted among non-blacks MDRD (S/P/Bld) [Vol rate/Area] 57 mL/min/{1.73_m2} Low >60 [facility] Comment on above: mL/min/1.73m2 CKD-EP I Creatinine Equation (2020) Hematocrit Auto (Bld) [Volum e fraction]Ordered By: Manpreet Ivy on 01-31-2025 Hematocrit (Bld) [Volume fraction] 41.1 % 37-47 [facility] Hemoglobin A1c percentageOrd ered By: Manpreet Ivy on 01-31-2025 HbA1c (Bld) [Mass fraction] 8.1 % High <5.7 [facility] Comment on above: Normal < 5.7 % Predi abetic 5.7 - 6.4 % Diabetic >or= 6.5 % Please note range changes. Hemoglobin measurementOrdere d By: Manpreet Ivy on 01-31-2025 Hemoglobin (Bld) [Mass/Vol] 13.1 g/dL 12.0-15.0 [facility] Immature granulocytes/100 WB C Auto (Bld)Ordered By: Manpreet Ivy on 01-31-2025 Immature granulocytes/100 WBC (Bld) 0.400 % 0.0-0.9 [facility] Comment on above: IG% - Immature Granu locytes (promyelocytes, myelocytes and metamyelocytes) > 1% indicates that a LEFT SHIFT is Present. LDL calc ser/plasOrdered By: Manpreet Ivy on 01-31-2025 Cholesterol in LDL [Mass/Vol] 56 mg/dL [facility] Comment on above: Lhemhaquhi=129-675 m g/dL & Higher Oxkl=020 mg/dL or greater Laboratory - Chemistry and C hemistry - challengeOrdered By: Manpreet Ivy on 01-31-2025 AST [Catalytic activity/Vol] 20 U/L <32 [facility] MCV (mean corpuscular volume ) determinationOrdered By: Manpreet Ivy on 01-31-2025 MCV (RBC) [Entitic vol] 89.0 fL 81-99 [facility] Mean corpuscular hemoglobin (MCH) determinationOrdered By: Manpreet Ivy on 01-31-2025 MCH (RBC) [Entitic mass] 28.4 pg 27.0-32.0 [facility] Mean corpuscular hemoglobin concentration (MCHC) determinationOrdered By: Manpreet Ivy on 01-31-2025 MCHC (RBC) [Mass/Vol] 31.9 g/dL Low 32-36 [facility] Mean platelet volume determi nationOrdered By: Manpreet Ivy on 01-31-2025 Platelet mean volume (Bld) [Entitic vol] 10.1 fL 6.2-12.0 [facility] Monocyte percentageOrdered B y: Manpreet Ivy on 01-31-2025 Monocytes/100 WBC (Bld) 6.7 % 0-10 [facility] Neutrophil percentageOrdered By: Manpreet Ivy on 01-31-2025 Neutrophils/100 WBC (Bld) 60.7 % 47-70 [facility] Nucleated red blood cell per centageOrdered By: Manpreet Ivy on 01-31-2025 Nucleated RBC/100 WBC (Bld) [Ratio] 0 % 0-5 [facility] Platelet countOrdered By: Bailey Ivy on 01-31-2025 Platelets (Bld) [#/Vol] 192 10*3/uL 150-450 [facility] Potassium measurement (mass/ volume)Ordered By: Manpreet Ivy on 01-31-2025 Potassium (Unsp spec) [Mass/Vol] 4.9 mmol/L 3.3-5.1 [facility] Comment on above: Hemolysis present, R esults could be affected. RBC Auto (Bld) [#/Vol]Ordere d By: Manpreet Ivy on 01-31-2025 RBC (Bld) [#/Vol] 4.62 10*6/uL 4.2-5.4 [facility] Screening total cholesterol/ high density lipoprotein (HDL) cholesterol ratioOrdered By: Manpreet vIy on 01-31-2025 Cholesterol.total/Beatriz sterol in HDL [Mass ratio] 2.54 {ratio} [facility] Serum creatinine measurement (mass/volume)Ordered By: Manpreet Ivy on 01-31-2025 Creatinine [Mass/Vol] 0.98 mg/dL 0.70-1.20 [facility] Serum globulin measurementOr dered By: Manpreet Ivy on 01-31-2025 Globulin (S) [Mass/Vol] 2.5 g/dL 2.2-4.2 [facility] Serum glucose measurement (m ass/volume)Ordered By: Manpreet Ivy on 01-31-2025 Glucose [Mass/Vol] 182 mg/dL High 70-99 [facility] Serum or plasma alanine corral otransferase (ALT) measurementOrdered By: Shanekaelton Diasoliviajuan jose 01-31-2025 ALT [Catalytic activity/Vol] 10 U/L <35 [facility] Serum or plasma albumin cinthia urement (mass/volume)[facility] 01-31-2025 Albumin [Mass/Vol] 4.5 g/dL 3.4-4.8 [facility] Serum or plasma albumin/glob ulin mass ratioOrdered By: [facility] 01-31-2025 Albumin/Globulin [Mass ratio] 1.8 {ratio} 0.9-2.4 [facility] Serum or plasma alkaline mireya sphatase measurementOrdered By: [facility] 01-31-2025 ALP [Catalytic activity/Vol] 72 U/L 35-104 [facility] Serum or plasma calcium cinthia urement (mass/volume)Ordered By: [facility] 01-31-2025 Calcium [Mass/Vol] 9.7 mg/dL 7.6-11.0 [facility] Serum or plasma cholesterol in HDL measurement (mass/volume)Ordered By: [facility] 01-31-2025 Cholesterol in HDL [Mass/Vol] 56 mg/dL >40 [facility] Comment on above: National Cholesterol Education Program (NCEP) guidelines:<40 mg/dL: Low HDL-cholesterol (major risk factor for CHD)>= 60 mg/dL: High HDL-cholesterol (negative risk factor for CHD)HDL-cholesterol is affected by a number of factors, e.g. smoking, exercise, hormones, sex and age. Serum or plasma cholesterol measurement (mass/volume)Ordered By: [facility] 01-31-2025 Cholesterol [Mass/Vol] 141 mg/dL <201 [facility] Comment on above: Cholesterol level, D esirable <200 mg/dLBorderline high cholesterol 200-239 mg/dLHigh cholesterol >=240 mg/dLRecommendations of the NCEP Adult Treatment Panel for the following risk-cutoff thresholds for the [place] population. Serum or plasma urea nitroge n measurement (mass/volume)Ordered By: [facility] 01-31-2025 Urea nitrogen [Mass/Vol] 15 mg/dL 4-19 [facility] Sodium levelOrdered By: Shaneka Ivy on 01-31-2025 Sodium [Moles/Vol] 136 mmol/L 133-145 [facility] Total proteinOrdered By: Kevin Ivy on 01-31-2025 Protein [Mass/Vol] 6.9 g/dL 5.9-8.4 [facility] Triglycerides measurementOrd ered By: Manpreet Ivy on 01-31-2025 Triglyceride [Mass/Vol] 149 mg/dL <199 [facility] Comment on above: The drugs N-Acetylcy steine and Metamizole may falsely depress this assay. Normal range: <150 mg/dLBorderline High: 150-199 mg/dLHigh: 200-499 mg/dLVery High: >500 mg/dL White blood cell (WBC) count Ordered By: Manpreet Ivy on 01-31-2025 WBC (Bld) [#/Vol] 7.3 10*3/uL 4.4-11.0 [facility] Absolute lymphocyte countOrd ered By: Manpreet Ivy on 11-02-2024 Lymphocytes Auto (Unsp spec) [#/Vol] 2.46 10*3/uL 0.83-4.51 [facility] Absolute neutrophil countOrd ered By: Manpreet Ivy on 11-02-2024 Neutrophils (Bld) [#/Vol] 3.9 10*3/uL 2.0-7.7 [facility] Automated lymphocyte count a s percentage of total leukocytesOrdered By: Manpreet Ivy on 11-02-2024 Lymphocytes/100 WBC Auto (Unsp spec) 34.1 % 19- [facility] BUN/creatinine ratioOrdered By: Manpreet Ivy on 11-02-2024 Urea nitrogen/Creatinine [Mass ratio] 18.1 mg/mg 10-20 [facility] Basophil percentageOrdered B y: Manpreet Ivy on 11-02-2024 Basophils/100 WBC (Bld) 0.8 % 0-1 [facility] Bilirubin, totalOrdered By: Manpreet Ivy on 11-02-2024 Bilirubin [Mass/Vol] 0.16 mg/dL 0.00-1.30 [facility] Calculated very low density lipoprotein (VLDL) cholesterol measurementOrdered By: Manpreet Ivy on 11-02-2024 Calculated very low density lipoprotein (VLDL) cholesterol measurement 22 mg/dL 5-40 [facility] VLDL Cholesterol 22 mg/dL 5-40 [facility] Carbon dioxide measurementOr dered By: Manpreet Ivy on 11-02-2024 CO2 [Moles/Vol] 23.9 mmol/L 22.0-29.0 [facility] Chloride measurementOrdered By: Manpreet Ivy on 11-02-2024 Chloride [Moles/Vol] 101 mmol/L 96-108 [facility] Eosinophil percentageOrdered By: Manpreet Ivy on 11-02-2024 Eosinophils/100 WBC (Bld) 2.6 % 0-5 [facility] Erythrocyte distribution wid th (RBC) [Ratio]Ordered By: Manpreet Ivy on 11-02-2024 Erythrocyte distribution width (RBC) [Entitic vol] 41.3 fL 35.1-43.9 [facility] Erythrocyte distribution wid th ratioOrdered By: Manpreet Ivy on 11-02-2024 Erythrocyte distribution width (RBC) [Ratio] 12.7 % 11.6-14.6 [facility] Erythrocyte distribution wid th standard deviationOrdered By: Manpreet Ivy on 11-02-2024 Erythrocyte distribution width (RBC) [Ratio] 41.3 fl 35.1-43.9 [facility] GFR/1.73 sq M.predicted antonio g non-blacks MDRD (S/P/Bld) [Vol rate/Area]Ordered By: Manpreet Ivy on 11-02-2024 Estimated GFR (MDRD) Non-Af Amer 61 >60 [facility] Comment on above: mL/min/1.73m2 CKD-EP I Creatinine Equation (2020) Glomerular filtration rate ( GFR) estimation/1.73 sq m using serum, plasma, or whole bOrdered By: Manpreet Ivy on 11-02-2024 GFR/1.73 sq M.predicted among non-blacks MDRD (S/P/Bld) [Vol rate/Area] 61 mL/min/{1.73_m2} >60 [facility] Comment on above: mL/min/1.73m2 CKD-EP I Creatinine Equation (2020) Hematocrit Auto (Bld) [Volum e fraction]Ordered By: Manpreet Ivy on 11-02-2024 Hematocrit (Bld) [Volume fraction] 38.7 % 37-47 [facility] Hemoglobin A1c percentageOrd ered By: Manpreet Ivy on 11-02-2024 HbA1c (Bld) [Mass fraction] 7.4 % >5.7 [facility] Hemoglobin measurementOrdere d By: Manpreet Ivy on 11-02-2024 Hemoglobin (Bld) [Mass/Vol] 12.5 g/dL 12.0-15.0 [facility] Immature granulocytes/100 WB C Auto (Bld)Ordered By: hui Ivy on 11-02-2024 Immature granulocytes/100 WBC (Bld) 0.600 % 0.0-0.9 [facility] Comment on above: IG% - Immature Granu locytes (promyelocytes, myelocytes and metamyelocytes) > 1% indicates that a LEFT SHIFT is Present. LDL calc ser/plasOrdered By: Manpreet Ivy on 11-02-2024 Cholesterol in LDL [Mass/Vol] 55 mg/dL [facility] Comment on above: Wgubrdvxdd=662-854 m g/dL & Higher Rbso=029 mg/dL or greater LDL Cholesterol, Calculated 55 mg/dL [facility] Comment on above: Uraeqzccpy=581-191 m g/dL & Higher Stxj=669 mg/dL or greater Laboratory - Chemistry and C hemistry - challengeOrdered By: Manpreet Ivy on 11-02-2024 AST [Catalytic activity/Vol] 23 U/L <32 [facility] Lymphocytes Auto (Unsp spec) [#/Vol]Ordered By: Manpreet Ivy on 11-02-2024 Lymphocytes (Bld) [#/Vol] 2.46 10*3/uL 0.83-4.51 [facility] Lymphocytes/100 WBC Auto (Un sp spec)Ordered By: aMnpreet Ivy on 11-02-2024 Lymphocytes/100 WBC (Bld) 34.1 % 19-41 [facility] MCV (mean corpuscular volume ) determinationOrdered By: Manpreet Ivy on 11-02-2024 MCV (RBC) [Entitic vol] 88.8 fL 81-99 [facility] Mean corpuscular hemoglobin (MCH) determinationOrdered By: Manpreet Ivy on 11-02-2024 MCH (RBC) [Entitic mass] 28.7 pg 27.0-32.0 [facility] Mean corpuscular hemoglobin concentration (MCHC) determinationOrdered By: Manpreet Ivy on 11-02-2024 MCHC (RBC) [Mass/Vol] 32.3 g/dL 32-36 [facility] Mean platelet volume determi nationOrdered By: Manpreet Ivy on 11-02-2024 Platelet mean volume (Bld) [Entitic vol] 10.6 fL 6.2-12.0 [facility] Monocyte percentageOrdered B y: Manpreet Ivy on 11-02-2024 Monocytes/100 WBC (Bld) 8.0 % 0-10 [facility] Neutrophil percentageOrdered By: Manpreet Ivy on 11-02-2024 Neutrophils/100 WBC (Bld) 53.9 % 47-70 [facility] Nucleated red blood cell per centageOrdered By: Manpreet Ivy on 11-02-2024 Nucleated RBC/100 WBC (Bld) [Ratio] 0 % 0-5 [facility] Platelet countOrdered By: Bailey Ivy on 11-02-2024 Platelets (Bld) [#/Vol] 186 10*3/uL 150-450 [facility] RBC Auto (Bld) [#/Vol]Ordere d By: Manpreet Ivy on 11-02-2024 RBC (Bld) [#/Vol] 4.36 10*6/uL 4.2-5.4 [facility] Screening total cholesterol/ high density lipoprotein (HDL) cholesterol ratioOrdered By: Manpreet Ivy on 11-02-2024 Cholesterol.total/Beatriz sterol in HDL [Mass ratio] 2.53 {ratio} [facility] Serum creatinine measurement (mass/volume)Ordered By: Manrpeet Ivy on 11-02-2024 Creatinine [Mass/Vol] 0.9 mg/dL 0.70-1.20 [facility] Serum globulin measurementOr dered By: Manpreet Ivy on 11-02-2024 Globulin (S) [Mass/Vol] 2.1 g/dL Low 2.2-4.2 [facility] Serum glucose measurement (m ass/volume)Ordered By: aMnpreet Ivy on 11-02-2024 Glucose [Mass/Vol] 106 mg/dL High 70-99 [facility] Serum or plasma alanine corral otransferase (ALT) measurementOrdered By: Manpreet Ivy on 11-02-2024 ALT [Catalytic activity/Vol] 17 U/L <35 [facility] Serum or plasma albumin cinthia urement (mass/volume)Ordered By: Manpreet Ivy on 11-02-2024 Albumin [Mass/Vol] 4.2 g/dL 3.4-4.8 [facility] Serum or plasma albumin/glob ulin mass ratioOrdered By: Manpreet Ivy on 11-02-2024 Albumin/Globulin [Mass ratio] 2.0 {ratio} 0.9-2.4 [facility] Serum or plasma alkaline mireya sphatase measurementOrdered By: Manpreet Ivy on 11-02-2024 ALP [Catalytic activity/Vol] 70 U/L 35-104 [facility] Serum or plasma anion gap de termination (moles/volume)Ordered By: Manpreet Ivy on 11-02-2024 Anion gap [Moles/Vol] 14 mmol/L 5-15 [facility] Serum or plasma calcium cinthia urement (mass/volume)Ordered By: Manpreet Ivy on 11-02-2024 Calcium [Mass/Vol] 9.6 mg/dL 7.6-11.0 [facility] Serum or plasma cholesterol in HDL measurement (mass/volume)Ordered By: Manpreet Ivy on 11-02-2024 Cholesterol in HDL [Mass/Vol] 51 mg/dL >40 [facility] Comment on above: National Cholesterol Education Program (NCEP) guidelines:<40 mg/dL: Low HDL-cholesterol (major risk factor for CHD)>= 60 mg/dL: High HDL-cholesterol (negative risk factor for CHD)HDL-cholesterol is affected by a number of factors, e.g. smoking, exercise, hormones, sex and age. Serum or plasma cholesterol measurement (mass/volume)Ordered By: Manpreet vIy on 11-02-2024 Cholesterol [Mass/Vol] 128 mg/dL <201 [facility] Comment on above: Cholesterol level, D esirable <200 mg/dLBorderline high cholesterol 200-239 mg/dLHigh cholesterol >=240 mg/dLRecommendations of the NCEP Adult Treatment Panel for the following risk-cutoff thresholds for the [place] population. Serum or plasma potassium me asurementOrdered By: Manpreet Ivy on 11-02-2024 Potassium [Moles/Vol] 4.1 mmol/L 3.3-5.1 [facility] Serum or plasma sodium measu rement (moles/volume)Ordered By: Manpreet Ivy on 11-02-2024 Sodium [Moles/Vol] 139 mmol/L 133-145 [facility] Serum or plasma urea nitroge n measurement (mass/volume)Ordered By: Manpreet Ivy on 11-02-2024 Urea nitrogen [Mass/Vol] 17 mg/dL 4-19 [facility] Total proteinOrdered By: Kevin Ivy on 11-02-2024 Protein [Mass/Vol] 6.3 g/dL 5.9-8.4 [facility] Triglycerides measurementOrd ered By: Manpreet Ivy on 11-02-2024 Triglyceride [Mass/Vol] 110 mg/dL <199 [facility] Comment on above: The drugs N-Acetylcy steine and Metamizole may falsely depress this assay. Normal range: <150 mg/dLBorderline High: 150-199 mg/dLHigh: 200-499 mg/dLVery High: >500 mg/dL White blood cell (WBC) count Ordered By: Manpreet Ivy on 11-02-2024 WBC (Bld) [#/Vol] 7.2 10*3/uL 4.4-11.0 [facility] 01-14-2024 CNPN Telephone (FAMPWS) MIKERAMONA TOMPKINS ([id number]) 1940 F Date Time Provider Department 01/14/24 [facility] During your visit today, we recorded the following information about you: Shahrzad Anderson MA 01/14/2024 9:06 AM Signed Type of letter/form/fax request - Medical Necessity-PAP supplies Form received from fax on 1 floor and placed on MD desk (Dr. Mcnair) for completion. Completed form needs to be faxed to Nancy at [phone]. [facility] completed for processing Afsaneh Cruz MA 01/14/2024 3:14 PM Addendum Pt is currently receiving prescription from Dr. Ivy as of September 2023 and is under her care. She is currently at [facility]. The documents are requesting an OV note in the past year about CPAP, which we do not have listed in our visits. Do you still want to complete form or should we have new PCP complete. Please review and advise. Can we updated PCP? ARASH Trotter Mark D, MD 01/15/2024 2:18 PM Signed OK to send to new PCP and change PCP MD Justin Barkley Kathryn, MA 01/15/2024 2:33 PM Signed Form faxed to Arunjuan jose office. PCP updated. Shahrzad Anderson MA Allergies As of Date: 01/14/2024 Noted Allergy Reaction PENICILLINS 03/03/2006 10 - Anaphylaxis IODINE 04/30/2005 5 - Intolerance Date Reviewed: 09/24/2023 Reviewed by: Jackson Duran MA - Fully Assessed Reason for Visit: Forms [463] Cmt: Nancy-CPAP supplies Prescriptions as of 01/15/2024 - meloxicam (MOBIC) 7.5 mg tablet Take 1 tablet by mouth once daily. Take with food. - vibegron (GEMTESA) 75 mg tablet Take 1 tablet by mouth once daily. - linaGLIPtin (TRADJENTA) 5 mg tab Take 1 tablet by mouth once daily. - simvastatin (ZOCOR) 40 mg tablet Take 1 tablet by mouth once daily. - glimepiride (AMARYL) 4 mg tablet Take 1 tablet by mouth daily with breakfast. - donepezil (ARICEPT) 5 mg tablet Take 1 tablet by mouth daily with breakfast. - sertraline (ZOLOFT) 100 mg tablet Take 2 tablets by mouth once daily. - metFORMIN (GLUCOPHAGE) 500 mg tablet TAKE TWO TABLETS BY MOUTH IN THE MORNING. TAKE TWO TABLETS BY MOUTH WITH DINNER. - ONETOUCH ULTRA TEST test strip TEST BLOOD SUGAR 1 TIMES DAILY. DX TYPE 2 DM CONTROLLED E11.9 INSULIN: NO. - aspirin, enteric coated (ASPIRIN, ENTERIC COATED) 81 mg EC tablet Take 1 tablet by mouth once daily. - Lactobacillus acidophilus (PROBIOTIC ORAL) Take by mouth once daily. - glucosamine HCl/chondroitin romano (GLUCOSAMINE-CHONDROITI N ORAL) Take by mouth once daily. - acetaminophen (TYLENOL) 325 mg tablet Take 2 tablets by mouth every 4 hours as needed. - calcium carbonate 600 mg-cholecalciferol 200 units 600 mg-5 mcg (200 unit) tab Take 1 tablet by mouth once daily. - Lancets (ACCU-CHEK SOFTCLIX LANCETS) lancets Test blood sugar(s) 1 times daily. Dx: Type 2 DM- Controlled E11.9 Insulin: No - Cholecalciferol, Vitamin D3, 1,000 unit cap Take 1 capsule by mouth once daily. - multivitamins(DAILY MULTIPLE TAB) Take one(1) tablet daily. - STOOL SOFTENER 100 MG CAP Take 200 mg by mouth once daily. 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 Absolute lymphocyte countOrd ered By: Manpreet Ivy on 11-03-2023 Lymphocytes Auto (Unsp spec) [#/Vol] 2.35 10*3/uL 0.83-4.51 [facility] Automated lymphocyte count a s percentage of total leukocytesOrdered By: Manpreet Ivy on 11-03-2023 Lymphocytes/100 WBC Auto (Unsp spec) 31.8 % 19-41 [facility] Basophil percentageOrdered B y: Manpreet Ivy on 11-03-2023 Basophils/100 WBC (Bld) 0.7 % 0-1 [facility] Bilirubin [Mass/Vol] 0.20 mg/dL 0.20-1.00 [facility] Comment on above: For patients on eltr ombopag therapy, use of Dimension Flushing TBIL is not recommended. Chloride [Moles/Vol] 105 mmol/L 98-107 [facility] Cholesterol [Mass/Vol] 168 mg/dL <200 [facility] Comment on above: <200 mg/dL Desirable 200-240 mg/dL Borderline >240 mg/dL High Risk Eosinophils/100 WBC (Bld) 4.5 % 0-5 [facility] Glucose [Mass/Vol] 118 mg/dL 74-106 [facility] Comment on above: Fasting Glucose resu lt from 100 to 125 mg/dL suggests IMPAIRED HOMEOSTASIS per A.D.A. criteria. Hemoglobin (Bld) [Mass/Vol] 11.0 g/dL 12.0-15.0 [facility] Monocytes/100 WBC (Bld) 8.9 % 0-10 [facility] Neutrophils (Bld) [#/Vol] 4.0 10*3/uL 2.0-7.7 [facility] Neutrophils/100 WBC (Bld) 53.8 % 47-70 [facility] Potassium [Moles/Vol] 4.0 mmol/L 3.5-5.1 [facility] Protein [Mass/Vol] 6.2 g/dL 6.4-8.2 [facility] Sodium [Moles/Vol] 138 mmol/L 136-145 [facility] Triglyceride [Mass/Vol] 187 mg/dL <199 [facility] Comment on above: The drugs N-Acetylcy steine and Metamizole may falsely depress this assay.Serum Triglycerides Reference Interval Normal <150 mg/dL Borderline high 150 - 199 mg/dL High 200 - 499 mg/dL Very High > or = 500 mg/dL WBC (Bld) [#/Vol] 7.4 10*3/uL 4.4-11.0 [facility] Determination of erythrocyte mean corpuscular volume (MCV)Ordered By: Manpreet Ivy on 11-03-2023 MCV (RBC) [Entitic vol] 87.0 fL 81-99 [facility] Erythrocyte distribution wid th ratioOrdered By: Shanekadeerel Diasjuan jose on 11-03-2023 Erythrocyte distribution width (RBC) [Ratio] 13.9 % 11.6-14.6 [facility] Erythrocyte distribution wid th standard deviationOrdered By: [facility] Arunjuan jose on 11-03-2023 Erythrocyte distribution width (RBC) [Entitic vol] 43.9 fL 35.1-43.9 [facility] Hematocrit Auto (Bld) [Volum e fraction]Ordered By: Manpreet Ivy on 11-03-2023 Hematocrit (Bld) [Volume fraction] 34.7 % 37-47 [facility] Immature granulocytes/100 WB C Auto (Bld)Ordered By: Manperet Ivy on 11-03-2023 Immature granulocytes/100 WBC (Bld) 0.300 % 0.0-0.9 [facility] Comment on above: IG% - Immature Granu locytes (promyelocytes, myelocytes and metamyelocytes) > 1% indicates that a LEFT SHIFT is Present. Laboratory - Chemistry and C hemistry - challengeOrdered By: Manpreet Ivy on 11-03-2023 Albumin/Globulin [Mass ratio] 1.1 {ratio} 0.9-2.4 [facility] ALP [Catalytic activity/Vol] 59 U/L 45-117 [facility] ALT [Catalytic activity/Vol] 19 U/L 13-56 [facility] Cholesterol in HDL [Mass/Vol] 47 mg/dL >40 [facility] Comment on above: The drugs N-Acetylcy steine and Metamizole may falsely depress this assay. Reference Range HDL <40 mg/dL Low HDL Cholesterol HDL >or= 60 mg/dL High HDL Cholesterol Cholesterol in LDL [Mass/Vol] 84 mg/dL 0-130 [facility] CO2 [Moles/Vol] 28.0 mmol/L 21.0-32.0 [facility] Globulin (S) [Mass/Vol] 3.0 g/dL 2.2-4.2 [facility] [facility] Urea nitrogen/Creatinine [Mass ratio] 14.6 mg/mg 10-20 [facility] Laboratory - Hematology and Cell countsOrdered By: Manpreet Ivy on 11-03-2023 MCH (RBC) [Entitic mass] 27.6 pg 27.0-32.0 [facility] MCHC (RBC) [Mass/Vol] 31.7 g/dL 32-36 [facility] Nucleated RBC/100 WBC (Bld) [Ratio] 0 % 0-5 [facility] Platelet mean volume (Bld) [Entitic vol] 10.5 fL 6.2-12.0 [facility] Platelets (Bld) [#/Vol] 213 10*3/uL 150-450 [facility] No Panel InformationOrdered By: Manpreet Ivy on 11-03-2023 Estimated GFR (MDRD) Amer 72 mL/min >60 [facility] Comment on above: GFR Calc Estimated GFR (MDRD) Non-Af Amer 59 mL/min >60 [facility] Comment on above: Non- GFR Calc VLDL Cholesterol 37 mg/dL 5-40 [facility] RBC Auto (Bld) [#/Vol]Ordere d By: Manpreet Ivy on 11-03-2023 RBC (Bld) [#/Vol] 3.99 10*6/uL 4.2-5.4 [facility] Serum or plasma calcium cinthia urement (mass/volume)Ordered By: Manpreet Ivy on 11-03-2023 Calcium [Mass/Vol] 9.2 mg/dL 8.5-10.1 [facility] Serum or plasma creatinine m easurement (mass/volume)Ordered By: Manpreet Ivy on 11-03-2023 Creatinine [Mass/Vol] 0.96 mg/dL 0.55-1.02 [facility] Comment on above: The validity of the calculated GFR & GFRAA in patients over 70 years has not been determined. Clinical correlation is essential. Serum or plasma urea nitroge n measurement (mass/volume)Ordered By: Manpreet Ivy on 11-03-2023 Urea nitrogen [Mass/Vol] 14 mg/dL 03-24 [facility] Thin prep Papanicolaou smear with manual screeningOrdered By: Manpreet Ivy on 11-03-2023 Thin prep Papanicolaou smear with manual screening 3.2 g/dL 3.2-5.0 [facility] Thin prep Papanicolaou smear with manual screening 17 U/L 15-37 [facility] Thin prep Papanicolaou smear with manual screening 5 5-15 [facility] Whole blood hemoglobin A1c/t otal hemoglobin ratio (mass fraction)Ordered By: Manpreet Ivy on 11-03-2023 HbA1c (Bld) [Mass fraction] 6.9 % 3.8-5.6 [facility] Comment on above: Normal < 5.7 % Predi abetic 5.7 - 6.4 % Diabetic >or= 6.5 % Please note range changes. CNOVon 09-24-2023 CNOV Office Visit (NREUS2 ) RAMONA MIKE ([id number]) 1940 F Date Time Provider Department 09/24/23 3:00 PM RAMÍREZ LEAVITT NREUS2 During your visit today, we recorded the following information about you: Pulse Blood pressure 102/minute 130/64 Ramírez Leavitt PA-C 09/25/2023 8:21 AM Signed CC: PASTER SUPERVISOR shunt f/u HPI: Mrs Mike comes to clinic today for surgical f/u. 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 Ramona was last seen on 02/05/23 where she was ambulating well with stable complaints of night time urinary urgency and issues with short term memory. In July of last year she moved to a nursing facility and has been much less active due to COVID outbreaks. Since last visit her walking and short term memory have decline. No change in urinary control Focused Exam: Right frontal shunt site examined, [...] XII: Tongue protrusion full and midline Motor: shuffling gait Impression: Mrs Ramona Mike is a pleasant 83 year old female with a history of NPH. She had a PASTER SUPERVISOR shunt implanted on 8/7/20 with Certas valve. Since last visit, Ramona moved to a nursing facility and unfortunately has been much less active due to COVID lock downs. She is now only ambulating a short distance with her walker due to shuffling gait. Her short term memory has also continued to decline since last visit but she denies changes in urinary control. CT brain reviewed which shows stable enlarged ventricle system, PASTER SUPERVISOR shunt catheter in place and no acute abnormalities. We discussed benefits and risks of PASTER SUPERVISOR shunt adjustment. After discussion, Ramona and her daughter would like to continue to work with PT to try and become more active without adjusting shunt. Plan for follow up in 6-[address] brain. Plan: Shunt information Shunt type: Certas Initial settin New settin Ramírez Leavitt PA-C Referring Provider: RAMÍREZ LEAVITT [[id number]] Allergies As of Date: 09/24/2023 Noted Allergy Reaction PENICILLINS 03/03/2006 10 - Anaphylaxis IODINE 04/30/2005 5 - Intolerance Date Reviewed: 09/24/2023 Reviewed by: Jackson Duran - Fully Assessed Reason for Visit: Established Patient [175] Cmt: F/u gave tablet Primary Visit Diagnosis:Other hydrocephalus (HCC) [G91.8] Order(s):CT BRAIN WO [facility] [[id number]] Order #: [id number] FUTURE Prescriptions as of 09/25/2023 - meloxicam (MOBIC) 7.5 mg tablet Take 1 tablet by mouth once daily. Take with food. - vibegron (GEMTESA) 75 mg tablet Take 1 tablet by mouth once daily. - linaGLIPtin (TRADJENTA) 5 mg tab Take 1 tablet by mouth once daily. - vibegron (GEMTESA) 75 mg tablet Take 1 tablet by mouth once daily. - linaGLIPtin (TRADJENTA) 5 mg tab Take 1 tablet by mouth once daily. - simvastatin (ZOCOR) 40 mg tablet Take 1 tablet by mouth once daily. - glimepiride (AMARYL) 4 mg tablet Take 1 tablet by mouth daily with breakfast. - donepezil (ARICEPT) 5 mg tablet Take 1 tablet by mouth daily with breakfast. - sertraline (ZOLOFT) 100 mg tablet Take 2 tablets by mouth once daily. - metFORMIN (GLUCOPHAGE) 500 mg tablet TAKE TWO TABLETS BY MOUTH IN THE MORNING. TAKE TWO TABLETS BY MOUTH WITH DINNER. - ONETOUCH ULTRA TEST test strip TEST BLOOD SUGAR 1 TIMES DAILY. DX TYPE 2 DM CONTROLLED E11.9 INSULIN: NO. - aspirin, enteric coated (ASPIRIN, ENTERIC COATED) 81 mg EC tablet Take 1 tablet by mouth once daily. - Lactobacillus acidophilus (PROBIOTIC ORAL) Take by mouth once daily. - glucosamine HCl/chondroitin romano (GLUCOSAMINE-CHONDROITI N ORAL) Take by mouth once daily. - acetaminophen (TYLENOL) 325 mg tablet Take 2 tablets by mouth every 4 hours as needed. - calcium carbonate 600 mg-cholecalciferol 200 units 600 mg-5 mcg (200 unit) tab Take 1 tablet by mouth once daily. - Lancets (ACCU-CHEK SOFTCLIX LANCETS) lancets Test blood sugar(s) 1 times daily. Dx: Type 2 DM- Controlled E11.9 Insulin: No - Cholecalciferol, Vitamin D3, 1,000 unit cap Take 1 capsule by mouth once daily. - multivitamins(DAILY MULTIPLE TAB) Take one(1) tablet daily. - STOOL SOFTENER 100 MG CAP Take 200 mg by mouth once daily. Problem Li (more content not included)... 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 MQ: [id number] CT Radiation dose: Integrated Dose-Length Product (DLP) for this visit = 776 mGy*cm CT Dose Reduction Employed: None COMPARISON: CT brain without contrast 02/05/2023. RESULT: Marine Steamfitter (topogram) images: No additional findings. Post-operative change: Right frontal approach shunt catheter terminating in the region of foramen of Monro. The shunt reservoir resides within the right frontal scalp. The distal catheter tip courses along the right parietal scalp and postauricular soft tissues extending beyond the [id number]. No evident discontinuity along the imaged portions of the catheter. Small region of gliosis along the course of the catheter in the right frontal lobe. Acute change: No evidence of an acute infarct or other acute parenchymal process. Hemorrhage: No evidence of acute intracranial hemorrhage. ECASS hemorrhagic transformation score: Not Applicable Mass Lesion / Mass Effect: There is no evidence of an intracranial mass or extraaxial fluid collection. No significant mass effect. Chronic change: Scattered patchy foci of low attenuation are present within supratentorial white matter which is a nonspecific finding but likely represents mild microvascular ischemia. Mild atherosclerotic calcifications within the intracranial vertebral arteries and carotid siphons. Parenchyma: There is mild generalized volume loss. The brain parenchyma is otherwise within normal limits for age. Ventricles: Diffuse ventriculomegaly. Utilizing coregisteration software, this appears stable to minimally increased as compared to prior exam. Paranasal sinuses and skull base: The visualized paranasal sinuses are grossly clear. The skull base and imaged soft tissues are unremarkable. IMPRESSION: Stable right frontal approach shunt catheter position. Diffuse ventriculomegaly, stable to minimally progressed as compared to prior exam. Agronomy Instructor: SARITA Transcribe Date/Time: Sep 24 2023 1:57P Dictated by : KERLINE EASTON MD This examination was interpreted and the report reviewed and electronically signed by: MONTRELL NEVES MD on Sep 24 2023 2:18PM EST [id number] Normal [facility] Absolute lymphocyte countOrd ered By: Manpreet Ivy on 09-16-2023 Lymphocytes Auto (Unsp spec) [#/Vol] 1.50 10*3/uL 0.83-4.51 [facility] Basophil percentageOrdered B y: Manpreet Ivy on 09-16-2023 Basophils/100 WBC (Bld) 0.4 % 0-1 [facility] Chloride [Moles/Vol] 104 mmol/L 98-107 [facility] Eosinophils/100 WBC (Bld) 0.4 % 0-5 [facility] Glucose [Mass/Vol] 206 mg/dL 74-106 [facility] Comment on above: Glucose result great er than or equal to 200 mg/dLsuggests DIABETES MELLITUS per A.D.A. criteria. Neutrophils (Bld) [#/Vol] 10.6 10*3/uL 2.0-7.7 [facility] Neutrophils/100 WBC (Bld) 79.4 % 47-70 [facility] Potassium [Moles/Vol] 4.1 mmol/L 3.5-5.1 [facility] Sodium [Moles/Vol] 136 mmol/L 136-145 [facility] WBC (Bld) [#/Vol] 13.4 10*3/uL 4.4-11.0 [facility] Blood erythrocytes count (nu mber/volume)Ordered By: Manpreet Ivy on 09-16-2023 RBC (Bld) [#/Vol] 4.48 10*6/uL 4.2-5.4 [facility] Blood hemoglobin measurement (mass/volume)Ordered By: Manpreet Ivy on 09-16-2023 Hemoglobin (Bld) [Mass/Vol] 12.6 g/dL 12.0-15.0 [facility] Blood lymphocytes/100 leukoc ytesOrdered By: Manpreet Ivy on 09-16-2023 Lymphocytes/100 WBC (Bld) 11.2 % 19-41 [facility] Blood monocytes/100 leukocyt esOrdered By: Manpreet Ivy on 09-16-2023 Monocytes/100 WBC (Bld) 7.9 % 0-10 [facility] Blood platelet mean volumeOr dered By: Manpreet Ivy on 09-16-2023 Platelet mean volume (Bld) [Entitic vol] 11.4 fL 6.2-12.0 [facility] Determination of erythrocyte mean corpuscular volume (MCV)Ordered By: Manpreet Ivy on 09-16-2023 MCV (RBC) [Entitic vol] 87.1 fL 81-99 [facility] Hematocrit Auto (Bld) [Volum e fraction]Ordered By: Manpreet Ivy on 09-16-2023 Hematocrit (Bld) [Volume fraction] 39.0 % 37-47 [facility] Laboratory - Chemistry and C hemistry - challengeOrdered By: Manpreet Ivy on 09-16-2023 CO2 [Moles/Vol] 23.0 mmol/L 21.0-32.0 [facility] Urea nitrogen/Creatinine [Mass ratio] 20.2 mg/mg 10-20 [facility] Laboratory - Hematology and Cell countsOrdered By: Manpreet Ivy on 09-16-2023 Erythrocyte distribution width (RBC) [Entitic vol] 41.3 fL 35.1-43.9 [facility] Erythrocyte distribution width (RBC) [Ratio] 13.2 % 11.6-14.6 [facility] Immature granulocytes/100 WBC (Bld) 0.700 % 0.0-0.9 [facility] Comment on above: IG% - Immature Granu locytes (promyelocytes, myelocytes and metamyelocytes) > 1% indicates that a LEFT SHIFT is Present. MCH (RBC) [Entitic mass] 28.1 pg 27.0-32.0 [facility] Nucleated RBC/100 WBC (Bld) [Ratio] 0 % 0-5 [facility] MCHC Auto (RBC) [Mass/Vol]Or dered By: Manpreet Ivy on 09-16-2023 MCHC (RBC) [Mass/Vol] 32.3 g/dL 32-36 [facility] No Panel InformationOrdered By: Manpreet Ivy on 09-16-2023 Estimated GFR (MDRD) Amer 65 mL/min >60 [facility] Comment on above: GFR Calc Estimated GFR (MDRD) Non-Af Amer 54 mL/min >60 [facility] Comment on above: Non- GFR Calc Platelets bldOrdered By: Kevin Ivy on 09-16-2023 Platelets (Bld) [#/Vol] 188 10*3/uL 150-450 [facility] Serum or plasma calcium cinthia urement (mass/volume)Ordered By: Manpreet Ivy on 09-16-2023 Calcium [Mass/Vol] 9.7 mg/dL 8.5-10.1 [facility] Serum or plasma creatinine m easurement (mass/volume)Ordered By: Manpreet Ivy on 09-16-2023 Creatinine [Mass/Vol] 1.04 mg/dL 0.55-1.02 [facility] Comment on above: The validity of the calculated GFR & GFRAA in patients over 70 years has not been determined. Clinical correlation is essential. Serum or plasma urea nitroge n measurement (mass/volume)Ordered By: Manpreet Ivy on 09-16-2023 Urea nitrogen [Mass/Vol] 21 mg/dL 7-18 [facility] Thin prep Papanicolaou smear with manual screeningOrdered By: Manpreet Ivy on 09-16-2023 Thin prep Papanicolaou smear with manual screening 9 5-15 [facility] Absolute lymphocyte countOrd ered By: Manpreet Ivy on 08-04-2023 Lymphocytes Auto (Unsp spec) [#/Vol] 2.17 10*3/uL 0.83-4.51 [facility] Basophil percentageOrdered B y: Manpreet Ivy on 08-04-2023 Basophils/100 WBC (Bld) 0.7 % 0-1 [facility] Bilirubin [Mass/Vol] 0.30 mg/dL 0.20-1.00 [facility] Comment on above: For patients on eltr ombopag therapy, use of Dimension Flushing TBIL is not recommended. Chloride [Moles/Vol] 101 mmol/L 98-107 [facility] Cholesterol [Mass/Vol] 117 mg/dL <200 [facility] Comment on above: <200 mg/dL Desirable 200-240 mg/dL Borderline >240 mg/dL High Risk Eosinophils/100 WBC (Bld) 1.6 % 0-5 [facility] Glucose [Mass/Vol] 96 mg/dL 74-106 [facility] Neutrophils (Bld) [#/Vol] 4.7 10*3/uL 2.0-7.7 [facility] Neutrophils/100 WBC (Bld) 60.6 % 47-70 [facility] Potassium [Moles/Vol] 3.7 mmol/L 3.5-5.1 [facility] Protein [Mass/Vol] 6.5 g/dL 6.4-8.2 [facility] Sodium [Moles/Vol] 136 mmol/L 136-145 [facility] Triglyceride [Mass/Vol] 179 mg/dL <199 [facility] Comment on above: The drugs N-Acetylcy steine and Metamizole may falsely depress this assay.Serum Triglycerides Reference Interval Normal <150 mg/dL Borderline high 150 - 199 mg/dL High 200 - 499 mg/dL Very High > or = 500 mg/dL WBC (Bld) [#/Vol] 7.7 10*3/uL 4.4-11.0 [facility] Blood erythrocytes count (nu mber/volume)Ordered By: Manpreet Ivy on 08-04-2023 RBC (Bld) [#/Vol] 4.52 10*6/uL 4.2-5.4 [facility] Blood hemoglobin measurement (mass/volume)Ordered By: Manpreet Ivy on 08-04-2023 Hemoglobin (Bld) [Mass/Vol] 12.9 g/dL 12.0-15.0 [facility] Blood lymphocytes/100 leukoc ytesOrdered By: aMnpreet Ivy on 08-04-2023 Lymphocytes/100 WBC (Bld) 28.3 % 19-41 [facility] Blood monocytes/100 leukocyt esOrdered By: hui Ivy on 08-04-2023 Monocytes/100 WBC (Bld) 8.5 % 0-10 [facility] Blood platelet mean volumeOr dered By: Manpreet Ivy on 08-04-2023 Platelet mean volume (Bld) [Entitic vol] 10.4 fL 6.2-12.0 [facility] Determination of erythrocyte mean corpuscular volume (MCV)Ordered By: Manpreet Ivy on 08-04-2023 MCV (RBC) [Entitic vol] 88.1 fL 81-99 [facility] Hematocrit Auto (Bld) [Volum e fraction]Ordered By: Manpreet Ivy on 08-04-2023 Hematocrit (Bld) [Volume fraction] 39.8 % 37-47 [facility] Laboratory - Chemistry and C hemistry - challengeOrdered By: Manpreet Ivy on 08-04-2023 ALP [Catalytic activity/Vol] 55 U/L 45-117 [facility] ALT [Catalytic activity/Vol] 18 U/L 13-56 [facility] CO2 [Moles/Vol] 28.0 mmol/L 21.0-32.0 [facility] Globulin (S) [Mass/Vol] 3.0 g/dL 2.2-4.2 [facility] Urea nitrogen/Creatinine [Mass ratio] 13.1 mg/mg 10-20 [facility] Laboratory - Hematology and Cell countsOrdered By: Manpreet Ivy on 08-04-2023 Erythrocyte distribution width (RBC) [Entitic vol] 41.7 fL 35.1-43.9 [facility] Erythrocyte distribution width (RBC) [Ratio] 12.8 % 11.6-14.6 [facility] Immature granulocytes/100 WBC (Bld) 0.300 % 0.0-0.9 [facility] Comment on above: IG% - Immature Granu locytes (promyelocytes, myelocytes and metamyelocytes) > 1% indicates that a LEFT SHIFT is Present. MCH (RBC) [Entitic mass] 28.5 pg 27.0-32.0 [facility] Nucleated RBC/100 WBC (Bld) [Ratio] 0 % 0-5 [facility] MCHC Auto (RBC) [Mass/Vol]Or dered By: Manpreet Ivy on 08-04-2023 MCHC (RBC) [Mass/Vol] 32.4 g/dL 32-36 [facility] No Panel InformationOrdered By: Manpreet Ivy on 08-04-2023 Estimated GFR (MDRD) Amer 69 mL/min >60 [facility] Comment on above: GFR Calc Estimated GFR (MDRD) Non-Af Amer 57 mL/min >60 [facility] Comment on above: Non- GFR Calc Platelets bldOrdered By: Kevin Ivy on 08-04-2023 Platelets (Bld) [#/Vol] 203 10*3/uL 150-450 [facility] Serum or plasma albumin cinthia urement (mass/volume)Ordered By: Manpreet Ivy on 08-04-2023 Albumin [Mass/Vol] 3.5 g/dL 3.2-5.0 [facility] Serum or plasma albumin/glob ulin mass ratioOrdered By: Manpreet Ivy on 08-04-2023 Albumin/Globulin [Mass ratio] 1.2 {ratio} 0.9-2.4 [facility] Serum or plasma calcium cinthia urement (mass/volume)Ordered By: Manpreet Ivy on 08-04-2023 Calcium [Mass/Vol] 9.7 mg/dL 8.5-10.1 [facility] Serum or plasma cholesterol in HDL measurement (mass/volume)Ordered By: Manpreet Ivy on 08-04-2023 Cholesterol in HDL [Mass/Vol] 44 mg/dL >40 [facility] Comment on above: The drugs N-Acetylcy steine and Metamizole may falsely depress this assay. Reference Range HDL <40 mg/dL Low HDL Cholesterol HDL >or= 60 mg/dL High HDL Cholesterol Serum or plasma cholesterol in VLDL measurement (mass/volume)Ordered By: Manpreet Ivy on 08-04-2023 Cholesterol in VLDL [Mass/Vol] 36 mg/dL 5-40 [facility] Serum or plasma creatinine m easurement (mass/volume)Ordered By: Manpreet Ivy on 08-04-2023 Creatinine [Mass/Vol] 0.99 mg/dL 0.55-1.02 [facility] Comment on above: The validity of the calculated GFR & GFRAA in patients over 70 years has not been determined. Clinical correlation is essential. Serum or plasma low density lipoprotein (LDL) cholesterol measurement (mass/volume)Ordered By: Manpreet Ivy on 08-04-2023 Cholesterol in LDL [Mass/Vol] 37 mg/dL 0-130 [facility] Serum or plasma urea nitroge n measurement (mass/volume)Ordered By: Manpreet Ivy on 08-04-2023 Urea nitrogen [Mass/Vol] 13 mg/dL 7-18 [facility] Thin prep Papanicolaou smear with manual screeningOrdered By: Manpreet Ivy on 08-04-2023 Thin prep Papanicolaou smear with manual screening 15 U/L 15-37 [facility] Thin prep Papanicolaou smear with manual screening 7 5-15 [facility] Whole blood hemoglobin A1c/t otal hemoglobin ratio (mass fraction)Ordered By: Manpreet Ivy on 08-04-2023 HbA1c (Bld) [Mass fraction] 7.2 % 3.8-5.6 [facility] Comment on above: Normal < 5.7 % Predi abetic 5.7 - 6.4 % Diabetic >or= 6.5 % Please note range changes. Absolute lymphocyte countOrd ered By: Manpreet Ivy on 06-12-2023 Lymphocytes Auto (Unsp spec) [#/Vol] 2.27 10*3/uL 0.83-4.51 [facility] Basophil percentageOrdered B y: Manpreet Ivy on 06-12-2023 Basophils/100 WBC (Bld) 0.7 % 0-1 [facility] Bilirubin [Mass/Vol] 0.20 mg/dL 0.20-1.00 [facility] Comment on above: For patients on eltr ombopag therapy, use of Dimension Flushing TBIL is not recommended. Chloride [Moles/Vol] 104 mmol/L 98-107 [facility] Eosinophils/100 WBC (Bld) 1.8 % 0-5 [facility] Glucose [Mass/Vol] 177 mg/dL 74-106 [facility] Comment on above: Fasting Glucose resu lt greater than or equal to 126 mg/dL suggests DIABETES MELLITUS per A.D.A. criteria. Neutrophils (Bld) [#/Vol] 4.5 10*3/uL 2.0-7.7 [facility] Neutrophils/100 WBC (Bld) 58.8 % 47-70 [facility] Potassium [Moles/Vol] 4.3 mmol/L 3.5-5.1 [facility] Protein [Mass/Vol] 6.4 g/dL 6.4-8.2 [facility] Sodium [Moles/Vol] 137 mmol/L 136-145 [facility] WBC (Bld) [#/Vol] 7.6 10*3/uL 4.4-11.0 [facility] Blood erythrocytes count (nu mber/volume)Ordered By: Manpreet Ivy on 06-12-2023 RBC (Bld) [#/Vol] 4.46 10*6/uL 4.2-5.4 [facility] Blood hemoglobin measurement (mass/volume)Ordered By: Manpreet Ivy on 06-12-2023 Hemoglobin (Bld) [Mass/Vol] 12.5 g/dL 12.0-15.0 [facility] Blood lymphocytes/100 leukoc ytesOrdered By: Manpreet Ivy on 06-12-2023 Lymphocytes/100 WBC (Bld) 30.0 % 19-41 [facility] Blood monocytes/100 leukocyt esOrdered By: hui Ivy on 06-12-2023 Monocytes/100 WBC (Bld) 8.3 % 0-10 [facility] Blood platelet mean volumeOr dered By: Manpreet Ivy on 06-12-2023 Platelet mean volume (Bld) [Entitic vol] 10.6 fL 6.2-12.0 [facility] Determination of erythrocyte mean corpuscular volume (MCV)Ordered By: Manpreet Ivy on 06-12-2023 MCV (RBC) [Entitic vol] 88.3 fL 81-99 [facility] Hematocrit Auto (Bld) [Volum e fraction]Ordered By: Manpreet Ivy on 06-12-2023 Hematocrit (Bld) [Volume fraction] 39.4 % 37-47 [facility] Laboratory - Chemistry and C hemistry - challengeOrdered By: hui Ivy on 06-12-2023 ALP [Catalytic activity/Vol] 80 U/L 45-117 [facility] ALT [Catalytic activity/Vol] 25 U/L 13-56 [facility] CO2 [Moles/Vol] 28.0 mmol/L 21.0-32.0 [facility] Globulin (S) [Mass/Vol] 3.0 g/dL 2.2-4.2 [facility] Urea nitrogen/Creatinine [Mass ratio] 15.5 mg/mg 10-20 [facility] Laboratory - Hematology and Cell countsOrdered By: Manpreet Ivy on 06-12-2023 Erythrocyte distribution width (RBC) [Entitic vol] 42.2 fL 35.1-43.9 [facility] Erythrocyte distribution width (RBC) [Ratio] 13.1 % 11.6-14.6 [facility] Immature granulocytes/100 WBC (Bld) 0.400 % 0.0-0.9 [facility] Comment on above: IG% - Immature Granu locytes (promyelocytes, myelocytes and metamyelocytes) > 1% indicates that a LEFT SHIFT is Present. MCH (RBC) [Entitic mass] 28.0 pg 27.0-32.0 [facility] Nucleated RBC/100 WBC (Bld) [Ratio] 0 % 0-5 [facility] MCHC Auto (RBC) [Mass/Vol]Or dered By: Manpreet Ivy on 06-12-2023 MCHC (RBC) [Mass/Vol] 31.7 g/dL 32-36 [facility] No Panel InformationOrdered By: Manpreet Ivy on 06-12-2023 Estimated GFR (MDRD) Amer 66 mL/min >60 [facility] Comment on above: GFR Calc Estimated GFR (MDRD) Non-Af Amer 54 mL/min >60 [facility] Comment on above: Non- GFR Calc Thyroid Stimulating Hormone (TSH) 2.97 uIU/mL 0.358-3.74 [facility] Platelets bldOrdered By: Kevin Ivy on 06-12-2023 Platelets (Bld) [#/Vol] 191 10*3/uL 150-450 [facility] Serum or plasma albumin cinthia urement (mass/volume)Ordered By: Manpreet Ivy on 06-12-2023 Albumin [Mass/Vol] 3.4 g/dL 3.2-5.0 [facility] Serum or plasma albumin/glob ulin mass ratioOrdered By: Manpreet Ivy on 06-12-2023 Albumin/Globulin [Mass ratio] 1.1 {ratio} 0.9-2.4 [facility] Serum or plasma calcium cinthia urement (mass/volume)Ordered By: Manpreet Ivy on 06-12-2023 Calcium [Mass/Vol] 9.3 mg/dL 8.5-10.1 [facility] Serum or plasma creatinine m easurement (mass/volume)Ordered By: Manpreet Ivy on 06-12-2023 Creatinine [Mass/Vol] 1.03 mg/dL 0.55-1.02 [facility] Comment on above: The validity of the calculated GFR & GFRAA in patients over 70 years has not been determined. Clinical correlation is essential. Serum or plasma urea nitroge n measurement (mass/volume)Ordered By: Manpreet Ivy on 06-12-2023 Urea nitrogen [Mass/Vol] 16 mg/dL 7-18 [facility] Thin prep Papanicolaou smear with manual screeningOrdered By: rogeliodeerel Ivy on 06-12-2023 Thin prep Papanicolaou smear with manual screening 16 U/L 15-37 [facility] Thin prep Papanicolaou smear with manual screening 5 5-15 [facility] Absolute lymphocyte countOrd ered By: rogeliodeerel Ivy on 05-05-2023 Lymphocytes Auto (Unsp spec) [#/Vol] 2.66 10*3/uL 0.83-4.51 [facility] Basophil percentageOrdered B y: Manpreet Ivy on 05-05-2023 Basophils/100 WBC (Bld) 0.6 % 0-1 [facility] Bilirubin [Mass/Vol] 0.20 mg/dL 0.20-1.00 [facility] Comment on above: For patients on eltr ombopag therapy, use of Dimension Flushing TBIL is not recommended. Chloride [Moles/Vol] 102 mmol/L 98-107 [facility] Cholesterol [Mass/Vol] 130 mg/dL <200 [facility] Comment on above: <200 mg/dL Desirable 200-240 mg/dL Borderline >240 mg/dL High Risk Eosinophils/100 WBC (Bld) 2.5 % 0-5 [facility] Glucose [Mass/Vol] 155 mg/dL 74-106 [facility] Comment on above: Fasting Glucose resu lt greater than or equal to 126 mg/dL suggests DIABETES MELLITUS per A.D.A. criteria. Neutrophils (Bld) [#/Vol] 4.8 10*3/uL 2.0-7.7 [facility] Neutrophils/100 WBC (Bld) 57.4 % 47-70 [facility] Potassium [Moles/Vol] 4.0 mmol/L 3.5-5.1 [facility] Protein [Mass/Vol] 6.4 g/dL 6.4-8.2 [facility] Sodium [Moles/Vol] 137 mmol/L 136-145 [facility] Triglyceride [Mass/Vol] 124 mg/dL <199 [facility] Comment on above: The drugs N-Acetylcy steine and Metamizole may falsely depress this assay.Serum Triglycerides Reference Interval Normal <150 mg/dL Borderline high 150 - 199 mg/dL High 200 - 499 mg/dL Very High > or = 500 mg/dL WBC (Bld) [#/Vol] 8.4 10*3/uL 4.4-11.0 [facility] Blood erythrocytes count (nu mber/volume)Ordered By: Manpreet Ivy on 05-05-2023 RBC (Bld) [#/Vol] 4.30 10*6/uL 4.2-5.4 [facility] Blood hemoglobin measurement (mass/volume)Ordered By: Manpreet Ivy on 05-05-2023 Hemoglobin (Bld) [Mass/Vol] 12.1 g/dL 12.0-15.0 [facility] Blood lymphocytes/100 leukoc ytesOrdered By: Efhui Ivy on 05-05-2023 Lymphocytes/100 WBC (Bld) 31.7 % 19-41 [facility] Blood monocytes/100 leukocyt esOrdered By: Efewongbe Ricke on 05-05-2023 Monocytes/100 WBC (Bld) 7.4 % 0-10 [facility] Blood platelet mean volumeOr dered By: Baileyrogelioongbe Biju on 05-05-2023 Platelet mean volume (Bld) [Entitic vol] 10.8 fL 6.2-12.0 [facility] RAM[facility] ([id number]) 1940 F Date Time Provider Department 05/05/23 HARSH MCNAIR [facility] During your visit today, we recorded the following information about you: Bj Santana LPN 05/05/2023 12:09 PM Signed Daughter calling to let you know pt was admitted into [employer] [facility] yesterday 05-04-23. Daughter has 2 questions. 1)[facility] would like to know why pt is taking baby aspirin daily. 2) [facility] asking if pt would be able to take 1000 mg of extra strength Tylenol instead of Meloxicam due to possible bleeding. Please advise daughter on both issues above. Harsh Vidales LPN, MD 05/05/2023 3:38 PM Signed The ASA was probably to reduce the risk of AL; it would be OK to stop this now It would be OK to take 1000 mg tylenol rather than the mobic MD Justin Barkley Ma, Kathryn 05/05/2023 3:48 PM Signed Message left for Roselyn to call back. Bj Fair Ma, LPN 05/06/2023 3:17 PM Signed Spoke with pt's daughter and information listed below given. Pt's daughter verbalizes understanding. Bj Santana LPN Allergies As of Date: 05/05/2023 Noted Allergy Reaction PENICILLINS 03/03/2006 10 - Anaphylaxis IODINE 04/30/2005 5 - Intolerance Date Reviewed: 04/17/2023 Reviewed by: Laquita Coulter APRN.MANUFACTURING MANAGEMENT ASSOCIATE - Fully Assessed Reason for Visit: medication quesitons [Other] Prescriptions as of 05/06/2023 - meloxicam (MOBIC) 7.5 mg tablet Take 1 tablet by mouth once daily. Take with food. - vibegron (GEMTESA) 75 mg tablet Take 1 tablet by mouth once daily. - linaGLIPtin (TRADJENTA) 5 mg tab Take 1 tablet by mouth once daily. - simvastatin (ZOCOR) 40 mg tablet Take 1 tablet by mouth once daily. - glimepiride (AMARYL) 4 mg tablet Take 1 tablet by mouth daily with breakfast. - donepezil (ARICEPT) 5 mg tablet Take 1 tablet by mouth daily with breakfast. - sertraline (ZOLOFT) 100 mg tablet Take 2 tablets by mouth once daily. - metFORMIN (GLUCOPHAGE) 500 mg tablet TAKE TWO TABLETS BY MOUTH IN THE MORNING. TAKE TWO TABLETS BY MOUTH WITH DINNER. - ONETOUCH ULTRA TEST test strip TEST BLOOD SUGAR 1 TIMES DAILY. DX TYPE 2 DM CONTROLLED E11.9 INSULIN: NO. - aspirin, enteric coated (ASPIRIN, ENTERIC COATED) 81 mg EC tablet Take 1 tablet by mouth once daily. - Lactobacillus acidophilus (PROBIOTIC ORAL) Take by mouth once daily. - glucosamine HCl/chondroitin romano (GLUCOSAMINE-CHONDROITI N ORAL) Take by mouth once daily. - acetaminophen (TYLENOL) 325 mg tablet Take 2 tablets by mouth every 4 hours as needed. - calcium carbonate 600 mg-cholecalciferol 200 units 600 mg-5 mcg (200 unit) tab Take 1 tablet by mouth once daily. - Lancets (ACCU-CHEK SOFTCLIX LANCETS) lancets Test blood sugar(s) 1 times daily. Dx: Type 2 DM- Controlled E11.9 Insulin: No - Cholecalciferol, Vitamin D3, 1,000 unit cap Take 1 capsule by mouth once daily. - multivitamins(DAILY MULTIPLE TAB) Take one(1) tablet daily. - STOOL SOFTENER 100 MG CAP Take 200 mg by mouth once daily. 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] 03/03/2006 Hyperlipidemia [E78.5] 08/03/2006 ATROPHIC VAGINITIS [N95.2] 08/21/2008 Symptomatic menopausal or female climacteric st*08/21/2008 07/23/2010 FEMALE STRESS INCONTINENCE [N39.3] 08/21/2008 CYSTOCELE, MIDLINE [N81.11] 08/21/2008 Depressive disorder [F32.A] 08/22/2009 Essential hypertension, benign [I10] 07/23/2010 Cervical spondylosis [M47.812] Neural foraminal stenosis of cervical spine [M4* Normal pressure hydrocephalus (HCC) [G91.2] 10/13/2019 04/19/2020 NPH (normal pressure hydrocephalus) (HCC) [G91.*02/14/2020 Obesity, Class I, BMI 30-34.9 [E66.9] 04/13/2020 Postoperative pain [G89.18] 04/13/2020 04/19/2020 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] 01/20/2022 Encounter Status:Closed by BJ SANTANA LPN on 05/06/23 Normal [facility] Determination of erythrocyte mean corpuscular volume (MCV)Ordered By: Manpreet Ivy on 05-05-2023 MCV (RBC) [Entitic vol] 89.3 fL 81-99 [facility] Hematocrit Auto (Bld) [Volum e fraction]Or[facility] By: [facility] jose on 05-05-2023 Hematocrit (Bld) [Volume fraction] 38.4 % 37-47 [facility] Laboratory - Chemistry and C hemistry - challengeOrdered By: [facility] on 05-05-2023 ALP [Catalytic activity/Vol] 63 U/L 45-117 [facility] ALT [Catalytic activity/Vol] 21 U/L 13-56 [facility] CO2 [Moles/Vol] 29.0 mmol/L 21.0-32.0 [facility] Free T4 [Mass/Vol] 0.79 ng/dL 0.76-1.46 [facility] Globulin (S) [Mass/Vol] 2.8 g/dL 2.2-4.2 [facility] Urea nitrogen/Creatinine [Mass ratio] 21.9 mg/mg 10-20 [facility] Laboratory - Hematology and Cell countsOrdered By: [facility] Hospital[facility] on 05-05-2023 Erythrocyte distribution width (RBC) [Entitic vol] 42.4 fL 35.1-43.9 [facility] Erythrocyte distribution width (RBC) [Ratio] 13.0 % 11.6-14.6 [facility] Immature granulocytes/100 WBC (Bld) 0.400 % 0.0-0.9 [facility] Comment on above: IG% - Immature Granu locytes (promyelocytes, myelocytes and metamyelocytes) > 1% indicates that a LEFT SHIFT is Present. MCH (RBC) [Entitic mass] 28.1 pg 27.0-32.0 [facility] Nucleated RBC/100 WBC (Bld) [Ratio] 0 % 0-5 [facility] MCHC Auto (RBC) [Mass/Vol]Or dered By: Manpreet Ivy on 05-05-2023 MCHC (RBC) [Mass/Vol] 31.5 g/dL 32-36 [facility] No Panel InformationOrdered By: Manpreet Ivy on 05-05-2023 Estimated GFR (MDRD) Amer 64 mL/min >60 [facility] Comment on above: GFR Calc Estimated GFR (MDRD) Non-Af Amer 53 mL/min >60 [facility] Comment on above: Non- GFR Calc Thyroid Stimulating Hormone (TSH) 2.94 uIU/mL 0.358-3.74 [facility] Vitamin D 25-Hydroxy 95.3 ng/mL [facility] Comment on above: Vitamin D 25(OH) Sta tus Range Deficiency <20 ng/mL (50nmol/L) Insufficiency 20 - 30 ng/mL (50 - 75 nmol/L) Sufficiency 30 - 100 ng/mL (75 - 250 nmol/L) Toxicity >100 ng/mL (>250 nmol/L) Platelets bldOrdered By: Kevin Ivy on 05-05-2023 Platelets (Bld) [#/Vol] 182 10*3/uL 150-450 [facility] Serum or plasma albumin cinthia urement (mass/volume)Ordered By: Manpreet Ivy on 05-05-2023 Albumin [Mass/Vol] 3.6 g/dL 3.2-5.0 [facility] Serum or plasma albumin/glob ulin mass ratioOrdered By: Manpreet Ivy on 05-05-2023 Albumin/Globulin [Mass ratio] 1.3 {ratio} 0.9-2.4 [facility] Serum or plasma calcium cinthia urement (mass/volume)Ordered By: Manpreet Ivy on 05-05-2023 Calcium [Mass/Vol] 9.2 mg/dL 8.5-10.1 [facility] Serum or plasma cholesterol in HDL measurement (mass/volume)Ordered By: Manpreet Ivy on 05-05-2023 Cholesterol in HDL [Mass/Vol] 57 mg/dL >40 [facility] Comment on above: The drugs N-Acetylcy steine and Metamizole may falsely depress this assay. Reference Range HDL <40 mg/dL Low HDL Cholesterol HDL >or= 60 mg/dL High HDL Cholesterol Serum or plasma cholesterol in VLDL measurement (mass/volume)Ordered By: Manpreet Ivy on 05-05-2023 Cholesterol in VLDL [Mass/Vol] 25 mg/dL 5-40 [facility] Serum or plasma creatinine m easurement (mass/volume)Ordered By: Manpreet vIy on 05-05-2023 Creatinine [Mass/Vol] 1.05 mg/dL 0.55-1.02 [facility] Comment on above: The validity of the calculated GFR & GFRAA in patients over 70 years has not been determined. Clinical correlation is essential. Serum or plasma low density lipoprotein (LDL) cholesterol measurement (mass/volume)Ordered By: Manpreet Ivy on 05-05-2023 Cholesterol in LDL [Mass/Vol] 48 mg/dL 0-130 [facility] Serum or plasma urea nitroge n measurement (mass/volume)Ordered By: Manpreet Ivy on 05-05-2023 Urea nitrogen [Mass/Vol] 23 mg/dL 7-18 [facility] Thin prep Papanicolaou smear with manual screeningOrdered By: rogeliodeerel Ivy on 05-05-2023 Thin prep Papanicolaou smear with manual screening 16 U/L 15-37 [facility] Thin prep Papanicolaou smear with manual screening 6 5-15 [facility] Whole blood hemoglobin A1c/t otal hemoglobin ratio (mass fraction)Ordered By: Manpreet Ivy on 05-05-2023 HbA1c (Bld) [Mass fraction] 7.8 % 3.8-5.6 [facility] Comment on above: Normal < 5.7 % Predi abetic 5.7 - 6.4 % Diabetic >or= 6.5 % Please note range changes. St[facility] 04-21-2023 [facility] RAMONA MIKE ([id number]) 1940 F Date Time Provider Department 04/21/23 HARSH MCNAIR During your visit today, we recorded the following information about you: Lynette [place]on [place] 04/21/2023 11:22 AM Signed Talia with [facility] calls to report that pt is looking at moving into their facility for Assisted Living. Talia requested face sheet, HANDP, OV notes. Faxed to: [phone] as reqeusted. Lynette [place] Allergies As of Date: 04/21/2023 Noted Allergy Reaction PENICILLINS 03/03/2006 10 - Anaphylaxis IODINE 04/30/2005 5 - Intolerance Date Reviewed: 04/17/2023 Reviewed by: Laquita Coulter APRN.MANUFACTURING MANAGEMENT ASSOCIATE - Fully Assessed Reason for Visit: Patient Update [1234] Prescriptions as of 04/21/2023 - meloxicam (MOBIC) 7.5 mg tablet Take 1 tablet by mouth once daily. Take with food. - vibegron (GEMTESA) 75 mg tablet Take 1 tablet by mouth once daily. - linaGLIPtin (TRADJENTA) 5 mg tab Take 1 tablet by mouth once daily. - simvastatin (ZOCOR) 40 mg tablet Take 1 tablet by mouth once daily. - glimepiride (AMARYL) 4 mg tablet Take 1 tablet by mouth daily with breakfast. - donepezil (ARICEPT) 5 mg tablet Take 1 tablet by mouth daily with breakfast. - sertraline (ZOLOFT) 100 mg tablet Take 2 tablets by mouth once daily. - metFORMIN (GLUCOPHAGE) 500 mg tablet TAKE TWO TABLETS BY MOUTH IN THE MORNING. TAKE TWO TABLETS BY MOUTH WITH DINNER. - Little Big ThingsTOSaaSMAX ULTRA TEST test strip TEST BLOOD SUGAR 1 TIMES DAILY. DX TYPE 2 DM CONTROLLED E11.9 INSULIN: NO. - aspirin, enteric coated (ASPIRIN, ENTERIC COATED) 81 mg EC tablet Take 1 tablet by mouth once daily. - Lactobacillus acidophilus (PROBIOTIC ORAL) Take by mouth once daily. - glucosamine HCl/chondroitin romano (GLUCOSAMINE-CHONDROITI N ORAL) Take by mouth once daily. - acetaminophen (TYLENOL) 325 mg tablet Take 2 tablets by mouth every 4 hours as needed. - calcium carbonate 600 mg-cholecalciferol 200 units 600 mg-5 mcg (200 unit) tab Take 1 tablet by mouth once daily. - Lancets (ACCU-CHEK SOFTCLIX LANCETS) lancets Test blood sugar(s) 1 times daily. Dx: Type 2 DM- Controlled E11.9 Insulin: No - Cholecalciferol, Vitamin D3, 1,000 unit cap Take 1 capsule by mouth once daily. - multivitamins(DAILY MULTIPLE TAB) Take one(1) tablet daily. - STOOL SOFTENER 100 MG CAP Take 200 mg by mouth once daily. 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] 03/03/2006 Hyperlipidemia [E78.5] 08/03/2006 ATROPHIC VAGINITIS [N95.2] 08/21/2008 Symptomatic menopausal or female climacteric st*08/21/2008 07/23/2010 FEMALE STRESS INCONTINENCE [N39.3] 08/21/2008 CYSTOCELE, MIDLINE [N81.11] 08/21/2008 Depressive disorder [F32.A] 08/22/2009 Essential hypertension, benign [I10] 07/23/2010 Cervical spondylosis [M47.812] Neural foraminal stenosis of cervical spine [M4* Normal pressure hydrocephalus (HCC) [G91.2] 10/13/2019 04/19/2020 NPH (normal pressure hydrocephalus) (HCC) [G91.*02/14/2020 Obesity, Class I, BMI 30-34.9 [E66.9] 04/13/2020 Postoperative pain [G89.18] 04/13/2020 04/19/2020 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 HISTORY OF PRESENT ILLNESS: Ramona Mike is a 82 year old female. Patient presents with: Follow Up: admission to [facility]. Here in the office for follow-up prior to admission to long-term care facility ( [facility]), Daughter present for this visit. Using walker [...] TAKE TWO TABLETS BY MOUTH WITH DINNER. Zapproved ULTRA TEST test strip TEST BLOOD SUGAR 1 TIMES DAILY. DX TYPE 2 DM CONTROLLED E11.9 INSULIN: NO. OTC NUTRITIONAL SUPPLEMENT once daily. Prevagen aspirin, enteric coated (ASPIRIN, ENTERIC COATED) 81 mg EC tablet Take 1 tablet by mouth once daily. Lactobacillus acidophilus (PROBIOTIC ORAL) Take by mouth once daily. glucosamine HCl/chondroitin romano (GLUCOSAMINE-CHONDROITI N ORAL) Take by mouth once daily. acetaminophen [...] None Mother Diabetes Father other (CHF) Father Jaguar (more content not included)... Normal [facility] CNOVon 02-05-2023 CNOV Office Visit (NREUS2 ) RAMONA MIKE ([id number]) 1940 F Date Time Provider Department 02/05/23 3:00 PM RAMÍREZ LEAVITT NREUS2 During your visit today, we recorded the following information about you: Pulse Blood pressure Weight Height 83/minute 129/57 80.7 kg 1.524 m Ramírez Leavitt PA-C 02/05/2023 3:15 PM Signed CC: PASTER SUPERVISOR shunt f/u HPI: Mrs Mike comes to clinic today for surgical f/u. 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 [...] with a history of NPH. 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 [...] reviewed which shows stable enlarged ventricle system, PASTER SUPERVISOR shunt catheter in place and no acute abnormalities. Follow up in 6-[address] brain Plan: Shunt information Shunt type: Certas Initial settin New settin Ramírez Leavitt PA-C Referring Provider: RAMÍREZ LEAVITT [[id number]] Allergies As of Date: 02/05/2023 Noted Allergy Reaction PENICILLINS 03/03/2006 10 - Anaphylaxis IODINE 04/30/2005 5 - Intolerance Date Reviewed: 02/05/2023 Reviewed by: Jaylene Otero MA - Fully Assessed Primary Visit Diagnosis:Other hydrocephalus (HCC) [G91.8] Order(s):CT BRAIN WO [facility] [[id number]] Order #: [id number] FUTURE Prescriptions as of 02/05/2023 - simvastatin (ZOCOR) 40 mg tablet Take 1 tablet by mouth once daily. - SITagliptin phosphate (JANUVIA) 100 mg tablet Take 1 tablet by mouth once daily. - glimepiride (AMARYL) 4 mg tablet Take 1 tablet by mouth daily with breakfast. - donepezil (ARICEPT) 5 mg tablet Take 1 tablet by mouth daily with breakfast. - sertraline (ZOLOFT) 100 mg tablet Take 2 tablets by mouth once daily. - metFORMIN (GLUCOPHAGE) 500 mg tablet TAKE TWO TABLETS BY MOUTH IN THE MORNING. TAKE TWO TABLETS BY MOUTH WITH DINNER. - meloxicam (MOBIC) 7.5 mg tablet Take 1 tablet by mouth once daily. Take with food. - ONETOUCH ULTRA TEST test strip TEST BLOOD SUGAR 1 TIMES DAILY. DX TYPE 2 DM CONTROLLED E11.9 INSULIN: NO. - vibegron (GEMTESA) 75 mg tablet Take 1 tablet by mouth once daily. - OTC NUTRITIONAL SUPPLEMENT once daily. Prevagen - aspirin, enteric coated (ASPIRIN, ENTERIC COATED) 81 mg EC tablet Take 1 tablet by mouth once daily. - Lactobacillus acidophilus (PROBIOTIC ORAL) Take by mouth once daily. - glucosamine HCl/chondroitin romano (GLUCOSAMINE-CHONDROITI N ORAL) Take by mouth once daily. - acetaminophen (TYLENOL) 325 mg tablet Take 2 tablets by mouth every 4 hours as needed. - calcium carbonate 600 mg-cholecalciferol 200 units 600 mg-5 mcg (200 unit) tab Take 1 tablet by mouth once daily. - Lancets (ACCU-CHEK SOFTCLIX LANCETS) lancets Test blood sugar(s) 1 times daily. Dx: Type 2 DM- Controlled E11.9 Insulin: No - Cholecalciferol, Vitamin D3, 1,000 unit cap Take 1 capsule by mouth once daily. - multivitamins(DAILY MULTIPLE TAB) Take one(1) tablet daily. - STOOL SOFTENER 100 MG CAP Take 200 mg by mouth once daily. Problem List As Of Date 02/05/2023 Noted Resolved Diabetes mellitus type 2, controlled, (more content not included)... Normal [facility] Stas 02-05-2023 [facility] RAMONA MIKE ([id number]) 1940 F Date Time Provider Department 02/05/23 [facility] During your visit today, we recorded the following information about you: Priscilla Wells 02/05/2023 2:01 PM Signed Ramona Mike's daughterRoselyn is calling Harsh Mcnair MD today. [facility] pharmacy advised daughter authorization is needed before they can fill SITagliptin phosphate (JANUVIA) 100 mg tablet A new prescription was sent on 01/29 Please contact pharmacy for clarification and return daughters call at [phone] Nadine Mccollumanderson Prather 02/05/2023 2:16 PM Signed Prior auth needed Lauren Gaspardevin Prather 02/05/2023 2:39 PM Signed Electronic PA submitted Lauren Meiludwin Prather Sakshi Chen [employer] 02/06/2023 2:10 PM Signed Insurance has reviewed this and it has been denied. Response is. Date: 02/06/2023 Harsh Mcnair [address] [place] [address] RE: Denial of request for coverage of [...] determining what alternative is appropriate for you. Harsh Mcnair MD 02/06/2023 3:06 PM Signed OK mo Tradjenta as ordered; it appears this is preferred by her insurance MD Sakshi Barkley LPN 02/06/2023 4:40 PM Signed This info was relayed to pts daughter. Allergies As of Date: 02/05/2023 Noted Allergy Reaction PENICILLINS 03/03/2006 10 - Anaphylaxis IODINE 04/30/2005 5 - Intolerance Date Reviewed: 02/05/2023 Reviewed by: Jaylene Otero MA - Fully Assessed Reason for Visit: Medication Problem [65] Visit Diagnosis:Controlled type 2 diabetes mellitus without complication, without long-term current use of insulin (HCC) [E11.9] Order(s):linaGLIPtin (TRADJENTA) 5 mg tabTake 1 tablet by mouth once daily.Disp: 30 tabletRfl: 11 Prescriptions as of 02/06/2023 - linaGLIPtin (TRADJENTA) 5 mg tab Take 1 tablet by mouth once daily. - simvastatin (ZOCOR) 40 mg tablet Take 1 tablet by mouth once daily. - glimepiride (AMARYL) 4 mg tablet Take 1 tablet by mouth daily with breakfast. - donepezil (ARICEPT) 5 mg tablet Take 1 tablet by mouth daily with breakfast. - sertraline (ZOLOFT) 100 mg tablet Take 2 tablets by mouth once daily. - metFORMIN (GLUCOPHAGE) 500 mg tablet TAKE TWO TABLETS BY MOUTH IN THE MORNING. TAKE TWO TABLETS BY MOUTH WITH DINNER. - meloxicam (MOBIC) 7.5 mg tablet Take 1 tablet by mouth once daily. Take with food. - Little Big ThingsTOUCH ULTRA TEST test strip TEST BLOOD SUGAR 1 TIMES DAILY. DX TYPE 2 DM CONTROLLED E11.9 INSULIN: NO. - vibegron (GEMTESA) 75 mg tablet Take 1 tablet by mouth once daily. - OTC NUTRITIONAL SUPPLEMENT once daily. Prevagen - aspirin, enteric coated (ASPIRIN, ENTERIC COATED) 81 mg EC tablet Take 1 tablet by mouth once daily. - Lactobacillus acidophilus (PROBIOTIC ORAL) Take by mouth once daily. - glucosamine HCl/chondroitin romano (GLUCOSAMINE-CHONDROITI N ORAL) Take by mouth once daily. - acetaminophen (TYLENOL) 325 mg tablet Take 2 tablets by mouth every 4 hours as needed. - calcium carbonate 600 mg-cholecalciferol 200 units 600 mg-5 mcg (200 unit) tab Take 1 tablet by mouth once daily. - Lancets (ACCU-CHEK SOFTCLIX LANCETS) lancets Test blood sugar(s) 1 times daily. Dx: Type 2 DM- Controlled E11.9 Insulin: No - Cholecalciferol, Vitamin D3, 1,000 unit cap Take 1 capsule by mouth once daily. - multivitamins(DAILY MULTIPLE TAB) Take one(1) tablet daily. - STOOL SOFTENER 100 MG CAP Take 200 mg by mouth once daily. Proble (more content not included)... Normal [facility] CT BRAIN WO IVCONon 02-06-20 CT BRAIN WO IVCON * * *Final Report* * * DATE OF EXAM: Feb 05 2023 1:50PM [facility] [facility] [place] [address] - CT BRAIN WO IVCON / PROCEDURE REASON: Other hydrocephalus (HCC) * * * * Physician Interpretation * * * * EXAMINATION: CT BRAIN WO IVCON CLINICAL HISTORY: Hydrocephalus TECHNIQUE: Serial axial images without IV contrast were obtained from the vertex to the foramen magnum. Coronal reconstructions. MQ: CTBWO_3 CT Radiation dose: Integrated Dose-Length Product (DLP) for this visit = 573 mGy*cm CT Dose Reduction Employed: No dose reduction techniques were required COMPARISON: Head CT 08/23/2020. RESULT: Marine Steamfitter (topogram) images: No additional findings. Coregistration software utilized for slice by slice comparison in the identical plane. Stable right frontal approach ventriculostomy catheter with surrounding encephalomalacia and mild to moderate ventriculomegaly. Negative for an acute parenchymal insult, hemorrhage, mass effect, and extra-axial collection. Unremarkable osseous structures, orbits, paranasal sinuses, mastoids, and soft tissues. IMPRESSION: Stable ventriculostomy catheter/ventriculomega ly. Agronomy Instructor: PSCB Transcribe Date/Time: Feb 05 2023 3:12P Dictated by : BETY ONTIVEROS MD This examination was interpreted and the report reviewed and electronically signed by: BETY ONTIVEROS MD on Feb 05 2023 3:14PM EST [id number] Normal [facility] CNOVon 01-29-2023 CNOV Office Visit (FAMPWS ) RAMONA MIKE ([id number]) 1940 F Date Time Provider Department 01/29/23 2:00 PM HARSH MCNAIR During your visit today, we recorded the following information about you: Pulse Respiration Blood pressure Weight 68/minute 16/minute 130/78 80.7 kg Harsh Mcnair MD 01/29/2023 2:32 PM Signed Chief Complaint Patient presents with: 6 Month [...] up from laying down. She has a "toilet launcher" that helps push her up off the [...] will take Miralax. Follows with Urologist Cristine Puri for urine retention. Had renal ultrasound and cysto done recently. No longer using Ditropan and started on Gemtesa 75 mg daily. Dementia: Following with [facility] Marcelo Mancini MANUFACTURING MANAGEMENT ASSOCIATE. Is on Aricept 5 mg once daily. [...] by mouth once daily. Take with food. ONETOUCH ULTRA TEST test strip TEST BLOOD SUGAR 1 TIMES DAILY. DX TYPE 2 DM CONTROLLED E11.9 INSULIN: NO. vibegron (GEMTESA) 75 mg tablet Take 1 tablet by mouth once daily. OTC NUTRITIONAL SUPPLEMENT once daily. Prevagen (Patient not taking: Reported on 01/07/2023) glimepiride (AMARYL) 4 mg tablet Take 1 tablet by mouth daily with breakfast. SITagliptin (JANUVIA) 100 mg tab (more content not included)... Normal [facility] 01-28-2023 [facility] Telephone (NREUS2) RAMONA MIKE ([id number]) 1940 F Date Time Provider Department 01/28/23 ROYA WARD NRQUES2 During your visit today, we recorded the following information about you: Roya Ward, Research Coordinator 01/28/2023 3:17 PM Signed Called and spoke with daughter to schedule follow up appt. Allergies As of Date: 01/28/2023 Noted Allergy Reaction PENICILLINS 03/03/2006 10 - Anaphylaxis IODINE 04/30/2005 5 - Intolerance Date Reviewed: 01/27/2023 Reviewed by: Kenneth Park Jr., MD - Fully Assessed Reason for Visit: Research [293] Prescriptions as of 01/28/2023 - donepezil (ARICEPT) 5 mg tablet Take 1 tablet by mouth daily with breakfast. - sertraline (ZOLOFT) 100 mg tablet Take 2 tablets by mouth once daily. - metFORMIN (GLUCOPHAGE) 500 mg tablet TAKE TWO TABLETS BY MOUTH IN THE MORNING. TAKE TWO TABLETS BY MOUTH WITH DINNER. - meloxicam (MOBIC) 7.5 mg tablet Take 1 tablet by mouth once daily. Take with food. - ONETOUCH ULTRA TEST test strip TEST BLOOD SUGAR 1 TIMES DAILY. DX TYPE 2 DM CONTROLLED E11.9 INSULIN: NO. - vibegron (GEMTESA) 75 mg tablet Take 1 tablet by mouth once daily. - OTC NUTRITIONAL SUPPLEMENT once daily. Prevagen - glimepiride (AMARYL) 4 mg tablet Take 1 tablet by mouth daily with breakfast. - SITagliptin (JANUVIA) 100 mg tablet Take 1 tablet by mouth once daily. - simvastatin (ZOCOR) 40 mg tablet Take 1 tablet by mouth once daily. - aspirin, enteric coated (ASPIRIN, ENTERIC COATED) 81 mg EC tablet Take 1 tablet by mouth once daily. - Lactobacillus acidophilus (PROBIOTIC ORAL) Take by mouth once daily. - glucosamine HCl/chondroitin romano (GLUCOSAMINE-CHONDROITI N ORAL) Take by mouth once daily. - acetaminophen (TYLENOL) 325 mg tablet Take 2 tablets by mouth every 4 hours as needed. - calcium carbonate 600 mg-cholecalciferol 200 units 600 mg-5 mcg (200 unit) tab Take 1 tablet by mouth once daily. - Lancets (ACCU-CHEK SOFTCLIX LANCETS) lancets Test blood sugar(s) 1 times daily. Dx: Type 2 DM- Controlled E11.9 Insulin: No - Cholecalciferol, Vitamin D3, 1,000 unit cap Take 1 capsule by mouth once daily. - multivitamins(DAILY MULTIPLE TAB) Take one(1) tablet daily. - STOOL SOFTENER 100 MG CAP Take 200 mg by mouth once daily. 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] 03/03/2006 Hyperlipidemia [E78.5] 08/03/2006 ATROPHIC VAGINITIS [N95.2] 08/21/2008 Symptomatic menopausal or female climacteric st*08/21/2008 07/23/2010 FEMALE STRESS INCONTINENCE [N39.3] 08/21/2008 CYSTOCELE, MIDLINE [N81.11] 08/21/2008 Depressive disorder [F32.A] 08/22/2009 Essential hypertension, benign [I10] 07/23/2010 Cervical spondylosis [M47.812] Neural foraminal stenosis of cervical spine [M4* Normal pressure hydrocephalus (HCC) [G91.2] 10/13/2019 04/19/2020 NPH (normal pressure hydrocephalus) (HCC) [G91.*02/14/2020 Obesity, Class I, BMI 30-34.9 [E66.9] 04/13/2020 Postoperative pain [G89.18] 04/13/2020 04/19/2020 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 Your doctor has inserted a telescope into your urinary bladder through your urethra to view the inside of your bladder. WHAT TO EXPECT: Possible burning during urination and /or blood tinged urine. WHAT TO DO: Resume normal activity and medications. Drink 6-8 glasses of fluid each day for 3 days to help flush your urinary system. MEDICATIONS: You were given Cipro, a preventative antibiotic, prior to the procedure. WHEN TO CALL DOCTOR: IF you have a fever over 100 degrees Farenheit. IF you are unable to urinate IF blood clots form in your urine IF your urine becomes very bloody and does not clear with drinking extra fluids. Please call [facility] office at [phone] M-F 8:00 am to 5:00pm With any questions you may have and ask for the Triage Nurse After 5:00 pm or weekends [phone] Thank you 07/13/13 AYANNA Park Jr, MD 01/27/2023 11:07 AM Signed CYSTOSCOPY PROCEDURE NOTE: Ramona Mike is a 82 year old female who presents with urge incontinence for a cystoscopy. Pt ID verified with patient: Yes Fire risk assessment done Procedure verified with patient: Yes Procedure confirmed with physician and system support administrator: Yes UNIVERSAL PROTOCOL / SAFETY CHECKLIST Procedure [...] management Gemtesa Cysto nl Set for prn MD Estelle Wylie Jr, DEN 01/27/2023 11:32 AM Signed AMBULATORY CYSTOSCOPY PROCEDURE PREOPERATIVE/PROCEDURAL VERIFICATION: Patient verified by: Name and Date of UNIVERSAL PROTOCOL / SAFETY CHECKLIST Procedure to be Performed: Cystoscopy Sign In: A Moment of CARE was [...] Out: SIGN OUT (optional for EMERGENT procedures): All specimen containers correctly labeled. Estelle Arnold LPN Medications and allergies reviewed and updated. Latex Allergy:No Pre-Procedure Antibiotics: Cipro 500 mg orally, given during visit @ 10:21 am , by Estelle Arnold Pre-Procedure Vital Signs: BP BP 134/76 Pulse 79 Resp 18 . Current pain intensity is 0 on a scale of 0-10. Patie (more content not included)... Normal [facility] CBC panel Auto (Bld)on 01-21 Erythrocyte distribution width (RBC) [Ratio] 13.1 % Normal 11.5-15.0 [facility] Comment on above: Order Comment: Asiya mancera Type: BLOOD SPECIMENOrdering Facility: [facility] Address: [address] [place] [address] Performed By: #### 5 8410-2 ####[facility] LABIA [id number] [place] [address] [place] Hematocrit (Bld) [Volume fraction] 41.4 % Normal 36.0-46.0 [facility] Comment on above: Order Comment: Asiya mancera Type: BLOOD SPECIMENOrdering Facility: [facility] Address: [address] [place] [address] Performed By: #### 5 8410-2 ####[facility] LABCLIA [id number] [place] [address] [place] Hemoglobin (Bld) [Mass/Vol] 13.4 g/dL Normal 11.5-15.5 [facility] Comment on above: Order Comment: Asiya mancera Type: BLOOD SPECIMENOrdering Facility: [facility] Address: [address] [place] [address] Performed By: #### 5 8410-2 ####[facility] [id number] [place] [address] [place] MCH (RBC) [Entitic mass] 28.5 pg Normal 26.0-34.0 [facility] Comment on above: Order Comment: Speci men Type: BLOOD SPECIMENOrdering Facility: [facility] Address: [address] [place] [address] Performed By: #### 5 8410-2 ####[facility] [id number] [address] [place] MCHC (RBC) [Mass/Vol] 32.4 g/dL Normal 30.5-36.[address] [facility] Comment on above: Order Comment: Speci men Type: BLOOD SPECIMENOrdering Facility: [facility] Address: [address] [place] [address] Performed By: #### 5 8410-2 ####[facility] [id number] [address] STATES OF [facility] MCV (RBC) [Entitic vol] 88.1 fL Normal 80.0-100.0 [facility] Comment on above: Order Comment: Speci men Type: BLOOD SPECIMENOrdering Facility: [facility] Address: [address] [place] [address] Performed By: #### 5 8410-2 ####[facility] [id number] [address] [place] Nucleated RBC (Bld) [#/Vol] 10*3/uL Normal <0.01 [facility] Comment on above: Order Comment: Speci men Type: BLOOD SPECIMENOrdering Facility: [facility] Address: [address] [place] [address] Performed By: #### 5 8410-2 ####[facility] [id number] [address] [place] Platelet mean volume (Bld) [Entitic vol] 10.9 fL Normal 9.0-12.7 [facility] Comment on above: Order Comment: Speci men Type: BLOOD SPECIMENOrdering Facility: [facility] Address: [address] [place], [place] [address] Performed By: #### 5 8410-2 ####[facility] LABCLIA [id number] [place] [address] [place] Platelets (Bld) [#/Vol] 174 10*3/uL Normal 150-400 [facility] Comment on above: Order Comment: Speci men Type: BLOOD SPECIMENOrdering Facility: [facility] Address: [address] [place], [place] [address] Performed By: #### 5 8410-2 ####[facility] LABCLIA [id number] [place] [address] [place] RBC (Bld) [#/Vol] 4.70 10*6/uL Normal 3.90-5.20 [facility] Comment on above: Order Comment: Speci men Type: BLOOD SPECIMENOrdering Facility: [facility] Address: [address] [place], [place] [address] Performed By: #### 5 8410-2 ####[facility] LABCLIA [id number] [place] [address] [place] WBC (Bld) [#/Vol] 6.43 10*3/uL Normal 3.70-11.00 [facility] Comment on above: Order Comment: Speci men Type: BLOOD SPECIMENOrdering Facility: [facility] Address: [address] [place], [place] [address] Performed By: #### 5 8410-2 ####[facility] LABCLIA [id number] [place] [id number] [place] Comprehensive metabolic 2000 panelon 01-21-2023 Albumin [Mass/Vol] 4.3 g/dL Normal 3.9-4.9 [facility] Comment on above: Order Comment: Speci men Type: BLOOD SPECIMENOrdering Facility: [facility] Address: [address] Performed By: #### 2 4323-8 ####[facility] LABCLIA [id number] [place] [address] [place] ALP [Catalytic activity/Vol] 68 U/L Normal 34-123 [facility] Comment on above: Order Comment: Speci men Type: BLOOD SPECIMENOrdering Facility: [facility] Address: [address] Performed By: #### 2 4323-8 ####[facility] LABCLIA [id number] [address] [place] ALT [Catalytic activity/Vol] 19 U/L Normal 7-38 [facility] Comment on above: Order Comment: Speci men Type: BLOOD SPECIMENOrdering Facility: [facility] Address: [address] Performed By: #### 2 4323-8 ####[facility] LABCLIA [id number] [place] [address] [place] Anion gap [Moles/Vol] 13 mmol/L Normal 9-[address] [facility] Comment on above: Order Comment: Speci men Type: BLOOD SPECIMENOrdering Facility: [facility] Address: [address] Performed By: #### 2 4323-8 ####[facility] LABCLIA [id number] [place] [address] [place] AST [Catalytic activity/Vol] 25 U/L Normal 13-35 [facility] Comment on above: Order Comment: Speci men Type: BLOOD SPECIMENOrdering Facility: [facility] Address: [address] Performed By: #### 2 4323-8 ####[facility] LABCLIA [id number] [place] [address] [place] Bilirubin [Mass/Vol] 0.2 mg/dL Normal 0.2-1.3 [facility] Comment on above: Order Comment: Speci men Type: BLOOD SPECIMENOrdering Facility: [facility] Address: [address] [place] [address] Performed By: #### 2 4323-8 ####[facility] LABCLIA [id number] [place] [address] [place] Calcium [Mass/Vol] 10.1 mg/dL Normal 8.5-10.2 [facility] Comment on above: Order Comment: Speci men Type: BLOOD SPECIMENOrdering Facility: [facility] Address: [address] [place] [address] Performed By: #### 2 4323-8 ####[facility] LABCLIA [id number] [place] [address] [place] Chloride [Moles/Vol] 98 mmol/L Normal 97-105 [facility] Comment on above: Order Comment: Speci men Type: BLOOD SPECIMENOrdering Facility: [facility] Address: [address] [place], [place] [address] Performed By: #### 2 4323-8 ####[facility] LABCLIA [id number] [place] [address] [place] CO2 [Moles/Vol] 25 mmol/L Normal 22-30 [facility] Comment on above: Order Comment: Speci men Type: BLOOD SPECIMENOrdering Facility: [facility] Address: [address] [place], [place] [address] Performed By: #### 2 4323-8 ####[facility] LABCLIA [id number] [place] [address] [place] Creatinine [Mass/Vol] 0.88 mg/dL Normal 0.58-0.[address] [facility] Comment on above: Order Comment: Speci men Type: BLOOD SPECIMENOrdering Facility: [facility] Address: [address] [place] [address] Performed By: #### 2 4323-8 ####[facility] LABCLIA [id number] [place] [address] [place] ESTIMATED GLOMERULAR FILTRATION RATE 66 mL/min/1.73m??? Normal >=60 [facility] Comment on above: Order Comment: Asiya men Type: BLOOD SPECIMENOrdering Facility: [facility] Address: [address] [place] [address] Result Comment: Adia mated Glomerular Filtration Rate (eGFR) is calculated using the 2020 CKD-EPI creatinine equation. This equation utilizes serum creatinine, sex, and age as parameters. The creatinine assay has traceable calibration to isotope dilution-mass spectrometry. Refer to KDIGO guidelines for clinical interpretation. In patients with unstable renal function, e.g. those with acute kidney injury, the eGFR may not accurately reflect actual GFR. Performed By: #### 2 4323-8 ####[facility] LABCLIA [id number] [place] [address] [place] Glucose [Mass/Vol] 179 mg/dL High 74-99 [facility] Comment on above: Order Comment: Asiya calderon Type: BLOOD SPECIMENOrdering Facility: [facility] Address: [address] [place] [address] Result Comment: The [place] Diabetes Association (ADA) provides guidance for cutoff values for fasting glucose and random glucose. The ADA defines fasting as no caloric intake for at least 8 hours. Fasting plasma glucose results between 100 to 125 mg/dL indicate increased risk for diabetes (prediabetes). Fasting plasma glucose results greater than or equal to 126 mg/dL meet the criteria for diagnosis of diabetes. In the absence of unequivocal hyperglycemia, results should be confirmed by repeat testing. In a patient with classic symptoms of hyperglycemia or hyperglycemic crisis, random plasma glucose results greater than or equal to 200 mg/dL meet the criteria for diagnosis of diabetes. Reference: Standards of Medical Care in Diabetes 2016, [place] Diabetes Association. Diabetes Care. 2016.39(Suppl 1). Performed By: #### 2 4323-8 ####[facility] LABCLIA [id number] [place] [address] [place] Potassium [Moles/Vol] 4.7 mmol/L Normal 3.7-5.[address] [facility] Comment on above: Order Comment: Speci men Type: BLOOD SPECIMENOrdering Facility: [facility] Address: [address] [place] [address] Performed By: #### 2 4323-8 ####[facility] LABCLIA [id number] [place] [address] [place] Protein [Mass/Vol] 6.6 g/dL Normal 6.3-8.0 [facility] Comment on above: Order Comment: Speci men Type: BLOOD SPECIMENOrdering Facility: [facility] Address: [address] [place] [address] Performed By: #### 2 4323-8 ####[facility] LABIA [id number] [place] [address] [place] Sodium [Moles/Vol] 136 mmol/L Normal 136-144 [facility] Comment on above: Order Comment: Speci men Type: BLOOD SPECIMENOrdering Facility: [facility] Address: [address] [place] [address] Performed By: #### 2 4323-8 ####[facility] LABCLIA [id number] [place] [address] [place] Urea nitrogen [Mass/Vol] 18 mg/dL Normal 7-21 [facility] Comment on above: Order Comment: Speci men Type: BLOOD SPECIMENOrdering Facility: [facility] Address: [address] [place] [address] Performed By: #### 2 4323-8 ####[facility] LABCLIA [id number] [place] [address] [place] HbA1c (Bld)on 01-21-2023 Average glucose Estimated from glycated hemoglobin (Bld) [Mass/Vol] 166 mg/dL Normal [facility] Comment on above: Order Comment: Asiya mancera Type: BLOOD SPECIMENOrdering Facility: [facility] Address: [address] [place] [address] Result Comment: eAG: (Estimated average glucose) is a calculated value from HgbA1c and is manufacturer's representative of the average blood glucose level in the last 2-3 month period. Performed By: #### 5 5454-3 ####[facility] LABCLIA [id number] [place] [address] [place] HbA1c (Bld) [Mass fraction] 7.4 % High 4.3-5.6 [facility] Comment on above: Order Comment: Asiya mancera Type: BLOOD SPECIMENOrdering Facility: [facility] Address: [address] [place] [address] Result Comment: [place] Diabetes Association guidelines indicate that patients with HgbA1c in the range 5.7-6.4% are at increased risk for development of diabetes, and intervention by lifestyle modification may be beneficial. HgbA1c greater or equal to 6.5% is considered diagnostic of diabetes. Performed By: #### 5 5454-3 ####[facility] LABCLIA [id number] [place] [address] [place] Lipid 1996 panelon 3 Cholesterol [Mass/Vol] 144 mg/dL Normal <200 [facility] Comment on above: Order Comment: Asiya mancera Type: BLOOD SPECIMENOrdering Facility: [facility] Address: [address] [place] [address] Result Comment: <200 mg/dL, Desirable 200-239 mg/dL, Borderline high >239 mg/dL, High Performed By: #### 2 4331-1 ####[facility] LABCLIA [id number] [address] [place] Cholesterol in HDL [Mass/Vol] 55 mg/dL Normal >39 [facility] Comment on above: Order Comment: Speci men Type: BLOOD SPECIMENOrdering Facility: [facility] Address: [address] [place] [address] Result Comment: 40-5 9 mg/dL, Acceptable >59 mg/dL, High: Negative risk factor for coronary heart disease <40 mg/dL, Low: Positive risk factor for coronary heart disease Performed By: #### 2 4331-1 ####[facility] LABCLIA [id number] [place] [address] [place] Cholesterol in LDL [Mass/Vol] 52 mg/dL Normal <100 [facility] Comment on above: Order Comment: Speci men Type: BLOOD SPECIMENOrdering Facility: [facility] Address: [address] [place] [address] Result Comment: <100 mg/dL, Optimal 100-129 mg/dL, Near optimal/above optimal 130-159 mg/dL, Borderline high 160-189 mg/dL, High >189 mg/dL, Very high Secondary prevention optimal LDL Cholesterol levels are recommended to be < 70 mg/dL Performed By: #### 2 4331-1 ####[facility] LABCLIA [id number] [address] [place] [facility] Cholesterol in LDL/Cholesterol in HDL [Mass ratio] 0.95 {ratio} Normal <2.54 [facility] Comment on above: Order Comment: Speci men Type: BLOOD SPECIMENOrdering Facility: [facility] Address: [address] [place] [address] Result Comment: Refe rence: 1. National Cholesterol Education Program ATP III Guideline At-A-Glance Quick Desk Reference: National Heart, Lung, and Blood [place]. National Institutes of Health. 2001: NIH Publication No. 01-3305. 2. An International Atherosclerosis Society position paper: global recommendations for the management of dyslipidemia: executive summary, Atherosclerosis. 2014: 232(2):410-413. Performed By: #### 2 4331-1 ####[facility] LABCLIA [id number] [address] [place] Cholesterol in VLDL [Mass/Vol] 37 mg/dL High <30 [facility] Comment on above: Order Comment: Speci men Type: BLOOD SPECIMENOrdering Facility: [facility] Address: [address] Performed By: #### 2 4331-1 ####[facility] LABCLIA [id number] [place] [address] [place] Cholesterol non HDL [Mass/Vol] 89 mg/dL Normal <130 [facility] Comment on above: Order Comment: Speci men Type: BLOOD SPECIMENOrdering Facility: [facility] Address: [address] Result Comment: <130 mg/dL, Optimal 130-159 mg/dL, Near optimal/above optimal 160-189 mg/dL, Borderline high 190-219 mg/dL, High >219 mg/dL, Very high Secondary prevention optimal non HDL Cholesterol levels are recommended to be <100 mg/dL Performed By: #### 2 4331-1 ####[facility] LABCLIA [id number] [place] [address] [place] Cholesterol.total/Beatriz sterol in HDL [Mass ratio] 2.62 {ratio} Normal <5.10 [facility] Comment on above: Order Comment: Speci men Type: BLOOD SPECIMENOrdering Facility: [facility] Address: [address] [place], [place] [id number] Performed By: #### 2 4331-1 ####[facility] LABCLIA [id number] [place] [address] [place] FASTING TIME 12 hrs Normal [facility] Comment on above: Order Comment: Speci men Type: BLOOD SPECIMENOrdering Facility: [facility] Address: [address] Performed By: #### 2 4331-1 ####[facility] LABCLIA [id number] [place] [address] [place] Triglyceride [Mass/Vol] 184 mg/dL High <150 C [facility] Comment on above: Order Comment: Speci men Type: BLOOD SPECIMENOrdering Facility: [facility] Address: [address] [place] [address] Result Comment: <150 mg/dL, Normal 150-199 mg/dL, Borderline high 200-499 mg/dL, High >499 mg/dL, Very high Performed By: #### 2 4331-1 ####[facility] LABCLIA [id number] [facility] [id number] STATES OF [facility] UA DIP, URINE (POC)on 2022 BILIRUBIN UA (POCT) Negative Negative [facility] CLARITY UA (POCT) Clear [facility] COLOR UA (POCT) Yellow [facility] GLUCOSE UA (POCT) 100 mg/dL Abnormal Negative mg/dL [facility] HEMOGLOBIN/BLOOD UA (POCT) Negative Negative [facility] KETONE UA (POCT) Negative Negative mg/dL [facility] LEUKOCYTES UA (POCT) Negative Negative [facility] NITRITE UA (POCT) Negative Negative [facility] PH UA (POCT) 5.5 4.5 - 8.0 [facility] Protein Ql (U) Negative Negative mg/dL [facility] SPECIFIC GRAVITY UA (POCT) 1.020 1.005 - 1.030 [facility] UROBILINOGEN UA (POCT) 0.2 E.U./dL Alysia l E.U./dL [facility] Glucose Glucometer (BldC) [M ass/Vol]on 02-24-2022 Glucose [Mass/Vol] 203 mg/dL 74-106 [facility] Work Phone: Comment on above: MANAGEMENT OF PATIEN T CARE PER NURSING PROTOCOL Absolute lymphocyte counton 02-23-2022 Lymphocytes Auto (Unsp spec) [#/Vol] 1.93 10*3/uL 0.83-4.51 [facility] Work Phone: Basophil percentageon 2021 Basophils/100 WBC (Bld) 0.4 % 0-1 [facility] Work Phone: Chloride [Moles/Vol] 104 mmol/L 98-107 [facility] Work Phone: Eosinophils/100 WBC (Bld) 1.5 % 0-5 [facility] Work Phone: Glucose [Mass/Vol] 209 mg/dL 74-106 [facility] Work Phone: Comment on above: Glucose result great er than or equal to 200 mg/dLsuggests DIABETES MELLITUS per A.D.A. criteria. Neutrophils (Bld) [#/Vol] 5.6 10*3/uL 2.0-7.7 [facility] Work Phone: Neutrophils/100 WBC (Bld) 66.9 % 47-70 [facility] Work Phone: Potassium [Moles/Vol] 3.6 mmol/L 3.5-5.1 [facility] Work Phone: Sodium [Moles/Vol] 137 mmol/L 136-145 [facility] Work Phone: WBC (Bld) [#/Vol] 8.4 10*3/uL 4.4-11.0 [facility] Work Phone: Blood erythrocytes count (nu mber/volume)on 02-23-2022 RBC (Bld) [#/Vol] 4.85 10*6/uL 4.2-5.4 [facility] Work Phone: Blood hemoglobin measurement (mass/volume)on 02-23-2022 Hemoglobin (Bld) [Mass/Vol] 13.5 g/dL 12.0-15.0 [facility] Work Phone: Blood lymphocytes/100 leukoc yteson 02-23-2022 Lymphocytes/100 WBC (Bld) 22.9 % 19-41 [facility] Work Phone: Blood monocytes/100 leukocyt eson 02-23-2022 Monocytes/100 WBC (Bld) 7.7 % 0-10 [facility] Work Phone: Blood platelet mean volumeon 02-23-2022 Platelet mean volume (Bld) [Entitic vol] 9.9 fL 6.2-12.0 [facility] Work Phone: [phone] Determination of erythrocyte mean corpuscular volume (MCV)on 02-23-2022 MCV (RBC) [Entitic vol] 85.8 fL 81-99 [facility] Work Phone: [phone] Hematocrit Auto (Bld) [Volum e fraction]on 02-23-2022 Hematocrit (Bld) [Volume fraction] 41.6 % 37-47 [facility] Work Phone: [phone] Laboratory - Chemistry and C hemistry - challengeon 02-23-2022 CO2 [Moles/Vol] 26.0 mmol/L 21.0-32.0 [facility] Work Phone: [phone] Urea nitrogen/Creatinine [Mass ratio] 19.2 mg/mg 10-20 [facility] Work Phone: [phone] Laboratory - Hematology and Cell countson 02-23-2022 Erythrocyte distribution width (RBC) [Entitic vol] 41.1 fL 35.1-43.9 [facility] Work Phone: [phone] Erythrocyte distribution width (RBC) [Ratio] 13.2 % 11.6-14.6 [facility] Work Phone: [phone] Immature granulocytes/100 WBC (Bld) 0.600 % 0.0-0.9 [facility] Work Phone: [phone] Comment on above: IG% - Immature Granu locytes (promyelocytes, myelocytes and metamyelocytes) > 1% indicates that a LEFT SHIFT is Present. MCH (RBC) [Entitic mass] 27.8 pg 27.0-32.0 [facility] Work Phone: [phone] Nucleated RBC/100 WBC (Bld) [Ratio] 0 % 0-5 [facility] Work Phone: [phone] MCHC Auto (RBC) [Mass/Vol]on 02-23-2022 MCHC (RBC) [Mass/Vol] 32.5 g/dL 32-36 [facility] Work [facility]: [phone] Panel Informationon 02-23 Estimated Creatinine Clearance Calc 31.69 ml/min [facility] Work Phone: Estimated GFR (MDRD) Amer 98 mL/min >60 [facility] Work Phone: Comment on above: GFR Calc Estimated GFR (MDRD) Non-Af Amer 81 mL/min >60 [facility] Work Phone: Comment on above: Non- GFR Calc Platelets bldon 02-23-2022 Platelets (Bld) [#/Vol] 211 10*3/uL 150-450 [facility] Work Phone: Serum or plasma calcium cinthia urement (mass/volume)on 02-23-2022 Calcium [Mass/Vol] 9.6 mg/dL 8.5-10.1 [facility] Work Phone: Serum or plasma creatinine m easurement (mass/volume)on 02-23-2022 Creatinine [Mass/Vol] 0.73 mg/dL 0.55-1.02 [facility] Work Phone: Comment on above: The validity of the calculated GFR & GFRAA in patients over 70 years has not been determined. Clinical correlation is essential. Serum or plasma urea nitroge n measurement (mass/volume)on 02-23-2022 Urea nitrogen [Mass/Vol] 14 mg/dL 7-18 [facility] Work Phone: Thin prep Papanicolaou smear with manual screeningon 02-23-2022 Thin prep Papanicolaou smear with manual screening 7 5-15 [facility] Work Phone: [phone] Basophil percentageon 2021 Basophil percentage 0 SEEN /hpf 0-5 [facility] Work Phone: Basophil percentage 3.0 mg/dL 2.5-4.9 [facility] Work Phone: Bilirubin [Mass/Vol] 0.30 mg/dL 0.20-1.00 [facility] Work Phone: Comment on above: For patients on eltr ombopag therapy, use of Dimension Flushing TBIL is not recommended. Protein [Mass/Vol] 6.7 g/dL 6.4-8.2 [place] [facility] Work Phone: [phone] Bilirubin Test strip Ql (U)o n 02-22-2022 Bilirubin Ql (U) Negative Negative [facility] Work Phone: Ketones Test strip Ql (U)on 02-22-2022 Ketones Ql (U) Negative Negative [facility] Work Phone: [phone] Laboratory - Chemistry and C hemistry - challengeon 02-22-2022 ALP [Catalytic activity/Vol] 62 U/L 45-117 [facility] Work Phone: [phone] ALT [Catalytic activity/Vol] 22 U/L 13-56 [facility] Work Phone: [phone] Globulin (S) [Mass/Vol] 3.2 g/dL 2.2-4.2 [facility] Work Phone: [phone] Magnesium [Mass/Vol] 2.1 mg/dL 1.6-2.[address] [facility] Work Phone: [phone] Mucus LM Ql (Urine sed)on Mucus Ql (Urine sed) 0 SEEN /hpf [facility] Work Phone: [phone] Nitrite Test strip Ql (U)on 02-22-2022 Nitrite Ql (U) Negative Negative [facility] Work Phone: [phone] No Panel Informationon 02-22 Thyroid Stimulating Hormone (TSH) 5.17 uIU/mL 0.358-3.74 [facility] Work Phone: [phone] Troponin I High Sensitivity 10 pg/mL 3.0-54.0 [facility] Work Phone: [phone] Comment on above: Please Note: New Eulalia t Units and Gender Specific Reference Ranges. For more information see Policy Stat Procedure Flushing High Sensitivity Troponin (TNIH) and attachments. Protein Test strip Ql (U)on 02-22-2022 Protein Ql (U) Negative Negative [facility] Work Phone: [phone] Serum or plasma albumin cinthia urement (mass/volume)on 02-22-2022 Albumin [Mass/Vol] 3.5 g/dL 3.2-5.0 [facility] Work Phone: Serum or plasma albumin/glob ulin mass ratioon 02-22-2022 Albumin/Globulin [Mass ratio] 1.1 {ratio} 0.9-2.4 [facility] Work Phone: Squamous epithelial cells de tection in urine sediment by light microscopyon 02-22-2022 Epithelial cells.squamous LM Ql (Urine sed) 0 SEEN /hpf 5-10 [facility] Work Phone: Thin prep Papanicolaou smear with manual screeningon 02-22-2022 Thin prep Papanicolaou smear with manual screening 15 U/L 15-37 [facility] Work Phone: Urine blood detectionon 02-05 RBC Ql (U) Negative Negative [facility] Work Phone: RBC Ql (U) 0 SEEN /hpf 0-5 [facility] Work Phone: Urine clarityon 02-22-2022 Clarity (U) Clear Clear [facility] Work Phone: Urine color determinationon 02-22-2022 Color (U) Yellow Yellow [facility] Work Phone: Urine glucose detectionon Glucose Ql (U) 1000 mg/dl Normal [facility] Work Phone: Urine leukocyte esterase det ection by dipstickon 02-22-2022 Leukocyte esterase Test strip Ql (U) Negative Negative [facility] Work Phone: Urine pHon 02-22-2022 pH (U) 8.0 [pH] 5.0 - 8.0 [facility] Work Phone: Urine sediment bacteria coun t by microscopy (number/high power field)on 02-22-2022 Bacteria LM.HPF (Urine sed) [#/Area] 0 /[HPF] None Seen [facility] Work Phone: Urine specific gravity measu rementon 02-22-2022 Specific gravity (U) [Rel density] 1.015 1.002-1.030 [facility] Work Phone: Urobilinogen Auto test strip Ql (U)on 02-22-2022 Urobilinogen Ql (U) Normal mg/dl Normal [facility] Work Phone: Absolute lymphocyte counton 02-21-2022 Lymphocytes Auto (Unsp spec) [#/Vol] 2.45 10*3/uL 0.83-4.51 [facility] Work Phone: Basophil percentageon 2021 Basophils/100 WBC (Bld) 0.7 % 0-1 [facility] Work Phone: Chloride [Moles/Vol] 102 mmol/L 98-107 [facility] Work Phone: Eosinophils/100 WBC (Bld) 2.1 % 0-5 [facility] Work Phone: Glucose [Mass/Vol] 108 mg/dL 74-106 [facility] Work Phone: Comment on above: Fasting Glucose resu lt from 100 to 125 mg/dL suggests IMPAIRED HOMEOSTASIS per A.D.A. criteria. Neutrophils (Bld) [#/Vol] 4.2 10*3/uL 2.0-7.7 [facility] Work Phone: Neutrophils/100 WBC (Bld) 55.5 % 47-70 [facility] Work Phone: Potassium [Moles/Vol] 4.2 mmol/L 3.5-5.1 [facility] Work Phone: Sodium [Moles/Vol] 139 mmol/L 136-145 [facility] Work Phone: WBC (Bld) [#/Vol] 7.6 10*3/uL 4.4-11.0 [facility] Work Phone: Blood erythrocytes count (nu mber/volume)on 02-21-2022 RBC (Bld) [#/Vol] 4.70 10*6/uL 4.2-5.4 [facility] Work Phone: Blood hemoglobin measurement (mass/volume)on 02-21-2022 Hemoglobin (Bld) [Mass/Vol] 13.1 g/dL 12.0-15.0 [facility] Work Phone: Blood lymphocytes/100 leukoc yteson 02-21-2022 Lymphocytes/100 WBC (Bld) 32.4 % 19-41 [facility] Work Phone: Blood monocytes/100 leukocyt eson 02-21-2022 Monocytes/100 WBC (Bld) 8.9 % 0-10 [facility] Work Phone: Blood platelet mean volumeon 02-21-2022 Platelet mean volume (Bld) [Entitic vol] 10.0 fL 6.2-12.0 [facility] Work Phone: Determination of erythrocyte mean corpuscular volume (MCV)on 02-21-2022 MCV (RBC) [Entitic vol] 85.5 fL 81-99 [facility] Work Phone: Glucose Glucometer (BldC) [M ass/Vol]on 02-21-2022 Glucose [Mass/Vol] 119 mg/dL 74-106 [facility] Work Phone: Comment on above: MANAGEMENT OF PATIEN T CARE PER NURSING PROTOCOL Hematocrit Auto (Bld) [Volum e fraction]on 02-21-2022 Hematocrit (Bld) [Volume fraction] 40.2 % 37-47 [facility] Work Phone: Laboratory - Chemistry and C hemistry - challengeon 02-21-2022 CO2 [Moles/Vol] 30.0 mmol/L 21.0-32.0 [facility] Work Phone: Urea nitrogen/Creatinine [Mass ratio] 18.3 mg/mg 10-20 [facility] Work Phone: Laboratory - Hematology and Cell countson 02-21-2022 Erythrocyte distribution width (RBC) [Entitic vol] 41.9 fL 35.1-43.9 [facility] Work Phone: Erythrocyte distribution width (RBC) [Ratio] 13.3 % 11.6-14.6 [facility] Work Phone: Immature granulocytes/100 WBC (Bld) 0.400 % 0.0-0.9 [facility] Work Phone: Comment on above: IG% - Immature Granu locytes (promyelocytes, myelocytes and metamyelocytes) > 1% indicates that a LEFT SHIFT is Present. MCH (RBC) [Entitic mass] 27.9 pg 27.0-32.0 [facility] Work Phone: Nucleated RBC/100 WBC (Bld) [Ratio] 0 % 0-5 [facility] Work Phone: MCHC Auto (RBC) [Mass/Vol]on 02-21-2022 MCHC (RBC) [Mass/Vol] 32.6 g/dL 32-36 [facility] Work Phone: No Panel Informationon 02-21 Estimated Creatinine Clearance Calc 28.95 ml/min [facility] Work Phone: [phone] Estimated GFR (MDRD) Amer 58 mL/min >60 [facility] Work Phone: Comment on above: GFR Calc Estimated GFR (MDRD) Non-Af Amer 48 mL/min >60 [facility] Work Phone: Comment on above: Non- GFR Calc Platelets bldon 02-21-2022 Platelets (Bld) [#/Vol] 217 10*3/uL 150-450 [facility] Work Phone: Serum or plasma calcium cinthia urement (mass/volume)on 02-21-2022 Calcium [Mass/Vol] 9.9 mg/dL 8.5-10.1 [facility] Work Phone: [phone] Serum or plasma creatinine m easurement (mass/volume)on 02-21-2022 Creatinine [Mass/Vol] 1.15 mg/dL 0.55-1.02 [facility] Work Phone: Comment on above: The validity of the calculated GFR & GFRAA in patients over 70 years has not been determined. Clinical correlation is essential. Serum or plasma urea nitroge n measurement (mass/volume)on 02-21-2022 Urea nitrogen [Mass/Vol] 21 mg/dL 18 [facility] Work Phone: Thin prep Papanicolaou smear with manual screeningon 02-21-2022 Thin prep Papanicolaou smear with manual screening 01-19 [facility] Work Phone: XR Chest PA and Lateralon IMPRESSION: No acute radiographic abnormality. Agronomy Instructor: PSCB Transcribe Date/Time: Oct 09 2021 12:51P Dictated by : LEWIS HENSLEY MD This examination was interpreted and the report reviewed and electronically signed by: LEWIS HENSLEY MD on Oct 09 2021 12:53PM [facility] DIVISION OF RADIOLOGY * * *Final Report* * * DATE OF EXAM: Oct 09 2021 12:25PM WOX 5291 - XR CHEST 2V FRONTAL/LAT / PROCEDURE REASON: multiple diagnoses * * * * Physician Interpretation * * * * EXAMINATION: CHEST RADIOGRAPH (2 VIEW FRONTAL & LATERAL) CLINICAL HISTORY: COVID-19 History of pneumonia MQ: XC2_6 EXAM DATE/TIME: 10/09/2021 12:25 PM COMPARISON: September 03, 2021 RESULT: Lines, tubes, and devices: Right sided ventriculoperitoneal shunt catheter partially visualized coursing through the soft tissues of the right neck, anterior chest wall and entering the left upper quadrant. Lungs and pleura: No consolidation. No lung mass. No pleural effusion. No pneumothorax. Cardiomediastinal silhouette: Normal cardiomediastinal silhouette. Bones and soft tissues: Degenerative changes are present within the thoracic spine. DIVISION OF RADIOLOGY Provider, Verónica Vicki Hernandez - 10/09/2021 * * *Final Report* * * DATE OF EXAM: Oct 09 2021 12:25PM WOX 5291 - XR CHEST 2V FRONTAL/LAT / PROCEDURE REASON: multiple diagnoses * * * * Physician Interpretation * * * * EXAMINATION: CHEST RADIOGRAPH (2 VIEW FRONTAL & LATERAL) CLINICAL HISTORY: COVID-19 History of pneumonia MQ: XC2_6 EXAM DATE/TIME: 10/09/2021 12:25 PM COMPARISON: September 03, 2021 RESULT: Lines, tubes, and devices: Right sided ventriculoperitoneal shunt catheter partially visualized coursing through the soft tissues of the right neck, anterior chest wall and entering the left upper quadrant. Lungs and pleura: No consolidation. No lung mass. No pleural effusion. No pneumothorax. Cardiomediastinal silhouette: Normal cardiomediastinal silhouette. Bones and soft tissues: Degenerative changes are present within the thoracic spine. IMPRESSION IMPRESSION: No acute radiographic abnormality. Agronomy Instructor: PSCB Transcribe Date/Time: Oct 09 2021 12:51P Dictated by : LEWIS HENSLEY MD This examination was interpreted and the report reviewed and electronically signed by: LEWIS HENSLEY MD on Oct 09 2021 12:53PM EST [facility] Radiology Study [facility] (narrative) [facility] XR Chest PA and LateralOrder ed By: [facility] Provider on 10-09-2021 [facility] Absolute lymphocyte counton 09-04-2021 Lymphocytes Auto (Unsp spec) [#/Vol] 0.84 10*3/uL 0.83-4.51 [facility] Work Phone: Basophil percentageon 2020 Chloride [Moles/Vol] 98 mmol/L 98-107 [facility] Work Phone: [phone] Eosinophils/100 WBC (Bld) 0.7 % 0-5 [facility] Work Phone: [phone] Glucose [Mass/Vol] 200 mg/dL 74-106 [facility] Work Phone: Comment on above: Glucose result great er than or equal to 200 mg/dLsuggests DIABETES MELLITUS per A.D.A. criteria.Please note revised GLUCOSE reference range effective 2017. Neutrophils (Bld) [#/Vol] 5.3 10*3/uL 2.0-7.7 [facility] Work Phone: Potassium [Moles/Vol] 4.0 mmol/L 3.5-5.1 [facility] Work Phone: [phone] Sodium [Moles/Vol] 134 mmol/L 136-145 [facility] Work Phone: [phone] WBC (Bld) [#/Vol] 7.2 10*3/uL 4.4-11.0 [facility] Work Phone: [phone] Blood erythrocytes count (nu mber/volume)on 09-04-2021 RBC (Bld) [#/Vol] 4.65 10*6/uL 4.2-5.4 [facility] Work Phone: [phone] Blood hemoglobin measurement (mass/volume)on 09-04-2021 Hemoglobin (Bld) [Mass/Vol] 13.0 g/dL 12.0-15.0 [facility] Work Phone: [phone] Blood lymphocytes/100 leukoc yteson 09-04-2021 Lymphocytes/100 WBC (Bld) 11.7 % 19-41 [facility] Work Phone: [phone] Blood monocytes/100 leukocyt eson 09-04-2021 Monocytes/100 WBC (Bld) 11.6 % 0-10 [facility] Work Phone: [phone] Blood platelet mean volumeon 09-04-2021 Platelet mean volume (Bld) [Entitic vol] 10.2 fL 6.2-12.0 [facility] Work Phone: [phone] Determination of erythrocyte mean corpuscular volume (MCV)on 09-04-2021 MCV (RBC) [Entitic vol] 86.0 fL 81-99 [facility] Work Phone: [phone] Hematocrit Auto (Bld) [Volum e fraction]on 09-04-2021 Hematocrit (Bld) [Volume fraction] 40.0 % 37-47 [facility] Work Phone: [phone] Laboratory - Chemistry and C hemistry - challengeon 09-04-2021 CO2 [Moles/Vol] 28.0 mmol/L 21.0-32.0 [facility] Work Phone: [phone] Urea nitrogen/Creatinine [Mass ratio] 17.1 mg/mg 10-20 [facility] Work Phone: Laboratory - Hematology and Cell countson 09-04-2021 Basophils/100 WBC (Unsp spec) 0.3 % 0-1 [facility] Work Phone: [phone] Erythrocyte distribution width (RBC) [Entitic vol] 40.7 fL 35.1-43.9 [facility] Work Phone: [phone] Erythrocyte distribution width (RBC) [Ratio] 13.1 % 11.6-14.6 [facility] Work Phone: [phone] Immature granulocytes/100 WBC (Bld) 1.500 % 0.0-0.9 [facility] Work Phone: [phone] Comment on above: IG% - Immature Granu locytes (promyelocytes, myelocytes and metamyelocytes) > 1% indicates that a LEFT SHIFT is Present. MCH (RBC) [Entitic mass] 28.0 pg 27.0-32.0 [facility] Work Phone: [phone] Neutrophils/100 WBC (Bld) 74.2 % 47-70 [facility] Work Phone: [phone] Nucleated RBC/100 WBC (Bld) [Ratio] 0 % 0-5 [facility] Work Phone: [phone] MCHC Auto (RBC) [Mass/Vol]on 09-04-2021 MCHC (RBC) [Mass/Vol] 32.5 g/dL 32-36 [facility] Work Phone: No Panel Informationon 09-04 SARS-CoV-2 Antigen (Rapid) SARS-CoV-2 (COVID 19) [facility] Work Phone: [phone] Estimated Creatinine Clearance Calc 31.69 ml/min [facility] Work Phone: [phone] Estimated GFR (MDRD) Amer 69 mL/min >60 [facility] Work Phone: Comment on above: GFR Calc Estimated GFR (MDRD) Non-Af Amer 57 mL/min >60 [facility] Work Phone: [phone] Comment on above: Non- GFR Calc Platelets bldon 09-04-2021 Platelets (Bld) [#/Vol] 158 10*3/uL 150-450 [facility] Work Phone: Serum or plasma calcium cinthia urement (mass/volume)on 09-04-2021 Calcium [Mass/Vol] 9.7 mg/dL 8.5-10.1 [facility] Work Phone: Serum or plasma creatinine m easurement (mass/volume)on 09-04-2021 Creatinine [Mass/Vol] 1.00 mg/dL 0.55-1.02 Anna ster [facility] Work Phone: Comment on above: The validity of the calculated GFR & GFRAA in patients over 70 years has not been determined. Clinical correlation is essential. Serum or plasma urea nitroge n measurement (mass/volume)on 09-04-2021 Urea nitrogen [Mass/Vol] 17 mg/dL 7-18 [facility] Work Phone: Thin prep Papanicolaou smear with manual screeningon 09-04-2021 Thin prep Papanicolaou smear with manual screening 8 5-15 [facility] Work Phone: XR Chest PA and Lateralon IMPRESSION: Streaky opacity in the left lung base may be related to atelectasis or possibly pneumonia in the correct clinical setting. Minimal blunting of the costophrenic angles may be related to trace effusions or pleural thickening. Agronomy Instructor: PSCB Transcribe Date/Time: Sep 03 2021 3:30P Dictated by : JOVITA ARROYO MD This examination was interpreted and the report reviewed and electronically signed by: JOVITA ARROYO MD on Sep 03 2021 3:33PM [facility] DIVISION OF RADIOLOGY * * *Final Report* * * DATE OF EXAM: Sep 03 2021 3:27PM WOX 5291 - XR CHEST 2V FRONTAL/LAT / PROCEDURE REASON: Cough * * * * Physician Interpretation * * * * EXAMINATION: CHEST RADIOGRAPH (2 VIEW FRONTAL & LATERAL) CLINICAL HISTORY: Cough MQ: XC2_6 EXAM DATE/TIME: 09/03/2021 3:27 PM COMPARISON: 04/13/2020 RESULT: Lines, tubes, and devices: Partially imaged PASTER SUPERVISOR shunt catheter projects over the central chest. Lungs and pleura: Streaky opacity in the left lung base. Minimal blunting of costophrenic angles. No pneumothorax. Cardiomediastinal silhouette: Normal cardiomediastinal silhouette. Bones and soft tissues: Degenerative changes are present within the thoracic spine. DIVISION OF RADIOLOGY Provider, Edelmira weston Agra - 09/03/2021 * * *Final Report* * * DATE OF EXAM: Sep 03 2021 3:27PM WOX 5291 - XR CHEST 2V FRONTAL/LAT / PROCEDURE REASON: Cough * * * * Physician Interpretation * * * * EXAMINATION: CHEST RADIOGRAPH (2 VIEW FRONTAL & LATERAL) CLINICAL HISTORY: Cough MQ: XC2_6 EXAM DATE/TIME: 09/03/2021 3:27 PM COMPARISON: 04/13/2020 RESULT: Lines, tubes, and devices: Partially imaged PASTER SUPERVISOR shunt catheter projects over the central chest. Lungs and pleura: Streaky opacity in the left lung base. Minimal blunting of costophrenic angles. No pneumothorax. Cardiomediastinal silhouette: Normal cardiomediastinal silhouette. Bones and soft tissues: Degenerative changes are present within the thoracic spine. IMPRESSION IMPRESSION: Streaky opacity in the left lung base may be related to atelectasis or possibly pneumonia in the correct clinical setting. Minimal blunting of the costophrenic angles may be related to trace effusions or pleural thickening. Agronomy Instructor: PSCB Transcribe Date/Time: Sep 03 2021 3:30P Dictated by : JOVITA ARROYO MD This examination was interpreted and the report reviewed and electronically signed by: JOVITA ARROYO MD on Sep 03 2021 3:33PM EST [facility] Radiology Study observation (narrative) Cami Villanueva XR Chest PA and LateralOrder ed By: [facility]cf Provider on 09-03-2021 [facility] Vital Signs Date Time Vital Sign Value Performing Clinician Abram caputo 04-17-2023 13:12-0400 Diastolic blood pressure 76 mm[Hg] Laquita Coulter APRN.CNP Work Phone: [facility] 04-17-2023 13:12-0400 Heart rate 78 /min Laquita Curielhof VIDEO SYSTEMS ENGINEER.MANUFACTURING MANAGEMENT ASSOCIATE Work Phone: [facility] 04-17-2023 13:12-0400 Respiratory rate 16 /min Laquita Curielhof VIDEO SYSTEMS ENGINEER.MANUFACTURING MANAGEMENT ASSOCIATE Work Phone: [facility] 04-17-2023 13:12-0400 SaO2% (BldA) [Mass fraction] 97 % Laquita Curielhof VIDEO SYSTEMS ENGINEER.MANUFACTURING MANAGEMENT ASSOCIATE Work Phone: [facility] 04-17-2023 13:12-0400 Systolic blood pressure 140 mm[Hg] Laquita Curielhof VIDEO SYSTEMS ENGINEER.MANUFACTURING MANAGEMENT ASSOCIATE Work Phone: [facility] 02-05-2023 14:50-0400 Body height 152.4 cm Ramírez Schwieterman PA-C Work Phone: [facility] 02-05-2023 14:50-0400 Body weight 80.74 kg Ramírez Schwieterman PA-C Work Phone: [facility] 02-05-2023 14:50-0400 Diastolic blood pressure 57 mm[Hg] Ramírez Schwieterman PA-C Work Phone: [facility] 02-05-2023 14:50-0400 Heart rate 83 /min Ramírez Schwieterman PA-C Work Phone: [facility] 02-05-2023 14:50-0400 SaO2% (BldA) [Mass fraction] 98 % Ramírez Schwieterman PA-C Work Phone: [facility] 02-05-2023 14:50-0400 Systolic blood pressure 129 mm[Hg] Ramírez Schwieterman PA-C Work Phone: [facility] 08-06-2022 11:25-0500 Body height 151.1 cm Vanessa Frye MD Work Phone: [facility] 08-06-2022 11:25-0500 Body weight 79.06 kg Vanessa Frye MD Work Phone: [facility] 08-06-2022 11:25-0500 Diastolic blood pressure 80 mm[Hg] Vanessa Frye MD Work Phone: [facility] 08-06-2022 11:25-0500 Systolic blood pressure 118 mm[Hg] Vanessa Frye MD Work Phone: [facility] 07-30-2022 14:18-0500 Body weight 78.47 kg Harsh Mcnair MD Work Phone: [facility] 07-30-2022 14:18-0500 Diastolic blood pressure 76 mm[Hg] Harsh Mcnair MD Work Phone: [facility] 07-30-2022 14:18-0500 Heart rate 74 /min Harsh Mcnair MD Work Phone: [facility] 07-30-2022 14:18-0500 Respiratory rate 16 /min Harsh Mcnair MD Work Phone: [facility] 07-30-2022 14:18-0500 Systolic blood pressure 124 mm[Hg] Harsh Mcnair MD Work Phone: [facility] 03-06-2022 09:39-0400 Body height 152.4 cm Ramírez Schwieterman PA-C Work Phone: [facility] 03-06-2022 09:39-0400 Body weight 77.56 kg Ramírez Schwieterman PA-C Work Phone: [facility] 03-06-2022 09:39-0400 Diastolic blood pressure 56 mm[Hg] Ramírez Schwieterman PA-C Work Phone: [facility] 03-06-2022 09:39-0400 Heart rate 89 /min Ramírez Schwieterman PA-C Work Phone: [facility] 03-06-2022 09:39-0400 SaO2% (BldA) [Mass fraction] 95 % Ramírez Schwieterman PA-C Work Phone: [facility] 03-06-2022 09:39-0400 Systolic blood pressure 124 mm[Hg] Ramírez Leavitt PA-C Work Phone: [facility] 03-03-2022 14:29-0400 Diastolic blood pressure 64 mm[Hg] Harsh Mcnair MD Work Phone: [facility] 03-03-2022 14:29-0400 Heart rate 84 /min Harsh Mcnair MD Work Phone: [facility] 03-03-2022 14:29-0400 Respiratory rate 16 /min Harsh Mcnair MD Work Phone: [facility] 03-03-2022 14:29-0400 Systolic blood pressure 120 mm[Hg] Harsh Mcnair MD Work Phone: [facility] 02-24-2022 14:59-0400 Heart rate 86 /min Dr. Jeuss Pete Work Phone: [facility] Work Phone: 02-24-2022 14:42-0400 SaO2% (BldA) [Mass fraction] 98 % Dr. Jesus Pete Work Phone: [facility] Work Phone: 02-24-2022 14:40-0400 Body temperature 97.5 [degF] Dr. Jesus Pete Work Phone: [facility] Work Phone: 02-24-2022 14:40-0400 Diastolic blood pressure 74 mm[Hg] Dr. Jesus Pete Work Phone: [facility] Work Phone: 02-24-2022 14:40-0400 Respiratory rate 16 /min Dr. Jesus Pete Work Phone: [facility] Work Phone: 02-24-2022 14:40-0400 Systolic blood pressure 150 mm[Hg] Dr. Jesus Pete Work Phone: [facility] Work Phone: 02-23-2022 22:19-0400 Inhaled oxygen concentration 21 % Dr. Jesus Pete Work Phone: [facility] Work Phone: 02-21-2022 23:13-0400 Body height 152.[address] Jesus Pete Work Phone: [facility] Work Phone: 02-21-2022 23:13-0400 Body mass index (BMI) [Ratio] 35.2 kg/m2 Dr. Jesus Pete Work Phone: [facility] Work Phone: 02-21-2022 23:13-0400 Body weight 81.[address] Jesus Pete Work Phone: [facility] Work Phone: 02-21-2022 22:04-0400 Body temperature 98 [degF] [facility] Work Phone: 02-21-2022 22:04-0400 Diastolic blood pressure 78 mm[Hg] [facility] Work Phone: 02-21-2022 22:04-0400 Heart rate 76 /min [facility] Work Phone: 02-21-2022 22:04-0400 Respiratory rate 20 /min [facility] Work Phone: 02-21-2022 22:04-0400 SaO2% (BldA) [Mass fraction] 93 % [facility] Work Phone: 02-21-2022 22:04-0400 Systolic blood pressure 159 mm[Hg] [facility] Work Phone: 02-21-2022 17:50-0400 Body height 154.94 cm [facility] Work Phone: 02-21-2022 17:50-0400 Body mass index (BMI) [Ratio] 32.1 kg/m2 [facility] Work Phone: 02-21-2022 17:50-0400 Body weight 77.11 kg [facility] Work Phone: 01-22-2022 12:08-0400 Body weight 78.38 kg Harsh Mcnair MD Work Phone: [facility] 01-22-2022 12:08-0400 Diastolic blood pressure 82 mm[Hg] Harsh Mcnair MD Work Phone: [facility] 01-22-2022 12:08-0400 Heart rate 78 /min Harsh Mcnair MD Work Phone: [facility] 01-22-2022 12:08-0400 Respiratory rate 16 /min Harsh Mcnair MD Work Phone: [facility] 01-22-2022 12:08-0400 Systolic blood pressure 126 mm[Hg] Harsh Mcnair MD Work Phone: [facility] 09-06-2021 16:16-0500 Body temperature 98.4 [degF] [facility] Work Phone: 09-06-2021 16:16-0500 Diastolic blood pressure 70 mm[Hg] [facility] Work Phone: 09-06-2021 16:16-0500 Heart rate 78 /min [facility] Work Phone: 09-06-2021 16:16-0500 Respiratory rate 16 /min [facility] Work Phone: 09-06-2021 16:16-0500 SaO2% (BldA) [Mass fraction] 95 % [facility] Work Phone: 09-06-2021 16:16-0500 Systolic blood pressure 125 mm[Hg] [facility] Work Phone: 09-06-2021 14:58-0500 Body height 152.4 cm [facility] Work Phone: 09-06-2021 14:58-0500 Body mass index (BMI) [Ratio] 29.2 kg/m2 [facility] Work Phone: 09-06-2021 14:58-0500 Body weight 68.03 kg [facility] Work Phone: 09-04-2021 13:03-0500 Diastolic blood pressure 74 mm[Hg] [facility] Work Phone: 09-04-2021 13:03-0500 Heart rate 81 /min [facility] Work Phone: 09-04-2021 13:03-0500 Respiratory rate 21 /min [facility] Work Phone: 09-04-2021 13:03-0500 SaO2% (BldA) [Mass fraction] 97 % [facility] Work Phone: 09-04-2021 13:03-0500 Systolic blood pressure 137 mm[Hg] [facility] Work Phone: 09-04-2021 10:04-0500 Body mass index (BMI) [Ratio] 33.7 kg/m2 [facility] Work Phone: 09-04-2021 10:04-0500 Body temperature 97.9 [degF] [facility] Work Phone: 09-04-2021 10:04-0500 Body weight 78.47 kg [facility] Work Phone: Encounters Encounter Date Encounter Type Care Provider Facility Start: 04-10-2025 End: 04-10-[address] Harsh Mcnair MD Work Phone: -[facility] Start: 04-10-2025 End: 04-10-2025 Patient encounter procedure Kathya JAIMES -[facility] Work Phone: Start: 02-16-2025 End: 02-16-[address] Harsh Mcnair MD Work Phone: -[facility] Start: 02-16-2025 End: 02-16-2025 Patient encounter procedure Kathya JAIMES -[facility] Work Phone: Start: 02-01-2025 End: 02-01-[address] Harsh Mcnair MD Work Phone: [facility] Work Phone: Start: 02-01-2025 End: 02-01-2025 Patient encounter procedure Kathya Underwood SAND CUTTER OPERATOR-C -[facility] Work Phone: Start: 01-31-2025 ambulatory Harsh Mcnair Facilit y:[facility] Start: 01-31-2025 Registered Referred Manpreet Ivy MD -[facility] [place] Start: 11-02-2024 End: 11-02-[address] Harsh Mcnair MD Work Phone: [facility] Work Phone: Start: 11-02-2024 End: 11-02-2024 Departed Referred Manpreet Ivy MD -[facility] [place] Start: 11-02-2024 End: 11-02-2024 ambulatory Harsh Mcnair Facility:[facility] Start: 08-02-2024 End: 08-02-2024 ambulatory Harsh Mcnair Facility:[facility] Start: 05-03-2024 ambulatory Harsh Mcnair Facilit y:[facility] Start: 04-26-2024 End: 04-26-2024 ambulatory Manpreet Ivy [place] Start: 01-14-2024 Telephone encounter Harsh patel MD Work Phone: [facility] Comment on above: Forms ([employer]) Start: 11-03-2023 End: 11-03-[address] Harsh Mcnair Work Phone: [facility] Work Phone: Start: 11-03-2023 End: 11-03-[address] Harsh Mcnair Work Phone: [facility] [place] Start: 09-24-2023 End: 09-24-2023 ambulatory [facility] Facility:[facility] Start: 09-16-2023 End: 09-16-[address] Harsh Mcnair Work Phone: [facility] Work Phone: Start: 09-16-2023 End: 09-16-[address] Harsh Mcnair Work Phone: [facility] Start: 09-09-2023 End: 09-09-[address] Harsh Mcnair Work Phone: [facility] Work Phone: Start: 08-04-2023 End: 08-04-[address] Harsh Mcnair Work Phone: [facility] Work Phone: Start: 08-04-2023 End: 08-04-[address] Harsh Mcnair Work Phone: [facility] Start: 06-12-2023 End: 06-12-2023 ambulatory [facility] Work Phone: Start: 06-12-2023 End: 06-12-2023 Departed Referred [facility] Start: 05-29-2023 End: 05-29-[address] Harsh Mcnair Work Phone: [facility] Work Phone: Start: 05-05-2023 Telephone encounter Harsh patel MD Work Phone: [facility] Comment on above: medication quesitons Start: 05-05-2023 End: 05-05-2023 Departed Referred [facility] Start: 04-21-2023 Telephone encounter Harsh patel MD Work Phone: [facility] Comment on above: Patient Update Start: 04-17-2023 End: 04-17-2023 ambulatory [facility] Facility:[facility] Start: 04-17-2023 End: 04-17-2023 Patient encounter procedure Laquita Coulter MANUFACTURING MANAGEMENT ASSOCIATE Work Phone: [facility] [place] Comment on above: 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) (Primary Dx); Controlled type 2 diabetes mellitus without complication, without long-term current use of insulin (HCC); Balance problem; Hyperlipidemia, unspecified hyperlipidemia type; Chronic constipation; Female stress incontinence; Cervical spondylosis; Depressive disorder Start: 04-02-2023 Refill Harsh sierra MD Work Phone: [facility] [place] Comment on above: Refill Request Start: 02-05-2023 End: 02-05-2023 Telemedicine consultation with patient Marcelo Mancini MANUFACTURING MANAGEMENT ASSOCIATE Work Phone: [facility] Start: 02-05-2023 End: 02-06-2023 ambulatory RAMÍREZ LEAVITT Facility:[facility] Start: 02-05-2023 End: 02-05-2023 Patient encounter procedure Ramírez Leavitt PAFelipeC Work Phone: [facility] Comment on above: Other hydrocephalus (HCC) (Primary Dx) 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) (Primary Dx); NPH (normal pressure hydrocephalus) (HCC); S/P PASTER SUPERVISOR shunt; Major depressive disorder, recurrent, in partial remission (HCC); Female stress incontinence Start: 02-05-2023 Telephone encounter Harsh patel MD Work Phone: [facility] Comment on above: Medication Problem Start: 02-05-2023 End: 02-05-2023 Subsequent hospital visit by physician Ct 2 Main Qb (I-Stat) Radiology Comment on above: Other hydrocephalus (HCC) [G91.8] Start: 02-03-2023 Refill Harsh sierra MD Work Phone: [facility] [place] Comment on above: Refill Request Start: 01-29-2023 End: 01-29-2023 ambulatory HARSH MCNAIR Facility:[facility] Start: 01-27-2023 End: 01-27-2023 ambulatory KENNETH PARK Facility:[facility] Start: 01-21-2023 End: 01-22-2023 ambulatory HARSH MCNAIR Facility:[facility] Start: 01-15-2023 Telephone encounter Harsh patel MD Work Phone: [facility] Comment on above: Forms Refill Request Start: 01-13-2023 Refill Zaheer MILES RN.MANUFACTURING MANAGEMENT ASSOCIATE Work Phone: [facility] Comment on above: Refill Request Start: 01-13-2023 Telephone encounter Harsh patel MD Work Phone: [facility] Comment on above: Patient Question Start: 01-07-2023 End: 01-07-2023 Patient encounter procedure Cristine Puri VIDEO SYSTEMS ENGINEER.MANUFACTURING MANAGEMENT ASSOCIATE Work Phone: Urology Comment on above: Urine retention (Neena maegan Dx); Mixed stress and urge urinary incontinence; Vascular parkinsonism (HCC) Start: 12-24-2022 Telephone encounter Harsh patel MD Work Phone: [facility] Comment on above: Urine problem Start: 10-21-2022 Refill Zaheer MILES RN.MANUFACTURING MANAGEMENT ASSOCIATE Work Phone: [facility] Comment on above: Refill Request; Refi ll Request Start: 10-14-2022 Telephone encounter Harsh patel MD Work Phone: [facility] Comment on above: Constipation Start: 10-01-2022 Orders Only Marcelo merino APRN.MANUFACTURING MANAGEMENT ASSOCIATE Work Phone: Neurology Comment on above: Female stress incont inence (Primary Dx) Start: 10-01-2022 Refill Marcelo merino APRN.MANUFACTURING MANAGEMENT ASSOCIATE Work Phone: Neurology Comment on above: Med Change Request Start: 09-26-2022 ambulatory Marcelo merino APRN.MANUFACTURING MANAGEMENT ASSOCIATE Work Phone: Neurology Comment on above: plan we discussed to day Start: 09-26-2022 E-mail encounter fro m caregiver Marcelo Mancini APRN.MANUFACTURING MANAGEMENT ASSOCIATE Work Phone: [facility] Start: 09-17-2022 Telephone encounter Harsh patel MD Work Phone: [facility] [place] Comment on above: Medication Question Start: 08-06-2022 End: 08-06-2022 Patient encounter procedure Vanessa Frye MD Work Phone: OB/Gynecology Comment on above: Encounter for gyneco logical examination (general) (routine) without abnormal findings (Primary Dx); Encounter for screening for osteoporosis; Unspecified menopausal and perimenopausal disorder Start: 08-06-2022 End: 08-06-2022 Patient encounter status Vanessa Frye MD Work Phone: OB/Gynecology Start: 07-30-2022 End: 07-30-2022 Patient encounter procedure Harsh Mcnair MD Work Phone: [facility] [place] Comment on above: Hyperlipidemia, unsp ecified hyperlipidemia type (Primary Dx); Essential hypertension, benign; Female stress incontinence; Controlled type 2 diabetes mellitus without complication, without long-term current use of insulin (HCC); Depressive disorder; NPH (normal pressure hydrocephalus) (HCC); Dementia without behavioral disturbance, psychotic disturbance, mood disturbance, or anxiety, unspecified dementia severity, unspecified dementia type (HCC) Start: 07-30-2022 Telephone encounter [facility] Comment on above: Appointment ([facility] ut appointment change per email) Start: 07-22-2022 Telephone encounter Harsh patel MD Work Phone: [facility] [place] Comment on above: Vomiting & Diarrhea Start: 07-15-2022 Telephone encounter Harsh patel MD Work Phone: [facility] [place] Comment on above: Medication Problem; Appointment Start: 07-11-2022 End: 07-11-2022 Patient encounter procedure Brianne Wade PhD Work Phone: Neuropyschology Comment on above: Major neurocognitive disorder (HCC) (Primary Dx); NPH (normal pressure hydrocephalus) (HCC); Controlled type 2 diabetes mellitus without complication, without long-term current use of insulin (HCC); Depression, unspecified depression type Start: 06-07-2022 End: 06-07-2022 ambulatory [facility] [place] Work Phone: [facility] [place] Start: 05-26-2022 ambulatory Lorraine Porter APRN.CNP Work Phone: Neurology Comment on above: thank you Start: 03-06-2022 Chart abstracting Roya Ward Research Coordinator Work Phone: [facility] Start: 03-06-2022 End: 03-06-2022 Patient encounter procedure Ramírez Leavitt PA-C Work Phone: [facility] Comment on above: Other hydrocephalus (HCC) Start: 03-03-2022 End: 03-03-2022 ambulatory Collins Mendoza MD Work Phone: [facility] Comment on above: NPH (normal pressure hydrocephalus) (HCC) (Primary Dx); Dehydration; Adverse effects of medication, initial encounter Start: 03-03-2022 End: 03-03-2022 Telemedicine consultation with patient Collins Mendoza MD Work Phone: [facility] Start: 03-03-2022 End: 03-03-2022 Patient encounter procedure Harsh Mcnair MD Work Phone: [facility] [place] Comment on above: Hospital discharge f ollow-up (Primary Dx); Orthostatic hypertension; Nausea and vomiting, unspecified vomiting type; Cervical spondylosis; Neural foraminal stenosis of cervical spine; Bilateral hand numbness; Vascular parkinsonism (HCC) Start: 02-28-2022 Telephone encounter Harsh patel MD Work Phone: [facility] Comment on above: Patient Update; FYI- No Action Needed Start: 02-26-2022 Orders Only David Dorsey MD Work Phone: [facility] Comment on above: S/P PASTER SUPERVISOR shunt (Primar y Dx); Other hydrocephalus (HCC) PT Plan of Care Start: 02-25-2022 ambulatory Glory Brasher RN [facility] [place] Comment on above: Patient Outreach Start: 02-25-2022 Telephone encounter Harsh patel MD Work Phone: [facility] Comment on above: Patient Outreach Patient Question/Tere nt Follow Up Start: 02-24-2022 Telephone encounter Harsh patel MD Work Phone: [facility] Comment on above: Home Care (Orders) Start: 02-24-2022 Non-patient / Non-visit Dr. Dung Pete Work Phone: [facility] Start: 02-23-2022 Non-patient / Non-visit Dr. Dung Pete Work Phone: [facility] Start: 02-22-2022 Non-patient / Non-visit Dr. Dung Pete Work Phone: [facility] Start: 02-21-2022 End: 02-24-2022 Evaluation and management of inpatient [facility] Care Unit Start: 02-21-2022 Telephone encounter Harsh patel MD Work Phone: [facility] Comment on above: Patient Update Start: 02-19-2022 Telephone encounter Harsh patel MD Work Phone: [facility] Comment on above: Forms Start: 01-22-2022 End: 01-22-2022 Patient encounter procedure Harsh Mcnair MD Work Phone: [facility] Comment on above: Controlled type 2 di abetes mellitus without complication, without long-term current use of insulin (HCC) (Primary Dx); Hyperlipidemia, unspecified hyperlipidemia type; Depressive disorder; Essential hypertension, benign; Memory difficulties; Female stress incontinence Start: 01-06-2022 Refill Harsh sierra MD Work Phone: [facility] Comment on above: Refill Request Start: 10-09-2021 End: 10-09-2021 Subsequent hospital visit by physician [facility] Work Phone: Radiology Comment on above: COVID-19 [U07.1] Start: 09-06-2021 End: 09-06-2021 Patient encounter procedure [facility] 3 Outp Start: 09-04-2021 End: 09-04-2021 Emergency department patient visit [facility]gency Department Start: 09-03-2021 End: 09-03-2021 Subsequent hospital visit by physician [facility] Work Phone: Radiology Comment on above: Cough [R05.9] Start: 08-28-2021 Patient encounter procedure [facility]Out[facility] Breast Imaging Procedures Date Procedure Procedure Detail Performing Clinician Start: 02-05-2023 Ct head/brain w/o contrast material Ramírez Leavitt PA-C Work Phone: Start: 01-07-2023 Urnls dip stick/tabl et rgnt auto w/o microscopy Cristine Puri VIDEO SYSTEMS ENGINEER.MANUFACTURING MANAGEMENT ASSOCIATE Work Phone: Start: 06-07-2022 INFLUENZA SEASONAL QUADRIVALENT HIGH DOSE AGE 65+ Mitchell Ralph DO Work Phone: Start: 02-21-2022 Radiographic imaging of soft tissue Start: 02-21-2022 CT of head without contrast Start: 10-09-2021 Radiologic exam ches t 2 views Laquita Coulter VIDEO SYSTEMS ENGINEER.MANUFACTURING MANAGEMENT ASSOCIATE Work Phone: Start: 09-04-2021 SARS-CoV-2 Antigen (Rapid) Start: 09-04-2021 Plain chest X-ray Start: 09-03-2021 Radiologic exam ches t 2 views Ladan Marina VIDEO SYSTEMS ENGINEER.MANUFACTURING MANAGEMENT ASSOCIATE Work Phone: Start: 08-28-2021 Screening mammography H/O: surgery S/P PASTER SUPERVISOR shunt David Dorsey MD Work Phone: Plan of Treatment Date Care Activity Detail Author Start: 04-15-2029 Urine microalbumin profile [facility] Start: 05-08-2024 Covid-19 Vaccine ( season) Covid-19 Vaccine () [facility] Start: 05-08-2024 [facility] Start[facility] 01-22-2024 Hepatitis B surface antibody level LDL CHOLESTEROL [facility] Start: 09-07-2023 Advance Directive Discussion Advance Directive Discussion [facility] Start: 07-24-2023 Hemoglobin A1c measurement HbA1C [facility] Start: 07-24-2023 Hemoglobin A1c/Hemoglobin.total in Blood HBA1C [facility] Start: 07-16-2023 Hepatitis B surface antibody level LDL CHOLESTEROL [facility] Start: 05-08-2023 Covid-19 Vaccine () Covid-19 Vaccine () [facility] Start: 05-08-2023 Influenza vaccination INFLUENZA (#1) [facility] Start: 01-27-2023 End: 03-29-2023 ALBUMIN/CREAT RATIO RND UR ALBUMIN/CREAT RATIO RND UR Lab Routine Controlled type 2 diabetes mellitus without complication, without long-term current use of insulin (HCC) Expected: 01/27/2023 (Approximate), Expires: 03/29/2023 [facility] Work Phone: Comment on above: Expected: 01/27/2023 (Approximate), Expires: 03/29/2023 Start: 01-27-2023 End: 03-29-2023 CBC panel - Blood by Automated count CBC Lab Routine Essential hypertension, benign Expected: 01/27/2023 (Approximate), Expires: 03/29/2023 [facility] Work Phone: Comment on above: Expected: 01/27/2023 (Approximate), Expires: 03/29/2023 Start: 01-27-2023 End: 03-29-2023 Comprehensive metabolic 2000 panel - Serum or Plasma COMP METABOLIC PANEL Lab Routine Hyperlipidemia, unspecified hyperlipidemia type Controlled type 2 diabetes mellitus without complication, without long-term current use of insulin (HCC) Expected: 01/27/2023 (Approximate), Expires: 03/29/2023 [facility] Work Phone: Comment on above: Expected: 01/27/2023 (Approximate), Expires: 03/29/2023 Start: 01-27-2023 End: 03-29-2023 Hemoglobin A1c in Blood HGB A1C Lab Routine Controlled type 2 diabetes mellitus without complication, without long-term current use of insulin (HCC) Expected: 01/27/2023 (Approximate), Expires: 03/29/2023 [facility] Work Phone: Comment on above: Expected: 01/27/2023 (Approximate), Expires: 03/29/2023 Start: 01-27-2023 End: 03-29-2023 Lipid 1996 panel - Serum or Plasma LIPID PANEL BASIC Lab Routine Hyperlipidemia, unspecified hyperlipidemia type Expected: 01/27/2023 (Approximate), Expires: 03/29/2023 [facility] Work Phone: Comment on above: Expected: 01/27/2023 (Approximate), Expires: 03/29/2023 Start: 01-15-2023 Hepatitis B surface antibody level LDL CHOLESTEROL [facility] Start: 10-16-2022 Hemoglobin A1c/Hemoglobin.total in Blood HBA1C [facility] Start: 09-07-2022 ADVANCE DIRECTIVE DISCUSSION ADVANCE DIRECTIVE DISCUSSION [facility] Start: 07-26-2022 Hepatitis B surface antibody level LDL CHOLESTEROL [facility] Start: 07-25-2022 End: 09-24-2022 CBC panel - Blood by Automated count CBC Lab Routine Essential hypertension, benign Expected: 07/25/2022, Expires: 09/24/2022 [facility] Work Phone: Comment on above: Expected: 07/25/2022 , Expires: 09/24/2022 Start: 07-25-2022 End: 09-24-2022 Comprehensive metabolic 2000 panel - Serum or Plasma COMP METABOLIC PANEL Lab Routine Controlled type 2 diabetes mellitus without complication, without long-term current use of insulin (HCC) Hyperlipidemia, unspecified hyperlipidemia type Expected: 07/25/2022 (Approximate), Expires: 09/24/2022 [facility] Work Phone: Comment on above: Expected: 07/25/2022 (Approximate), Expires: 09/24/2022 Start: 07-25-2022 End: 09-24-2022 Hemoglobin A1c/Hemoglobin.total in Blood HGB A1C Lab Routine Controlled type 2 diabetes mellitus without complication, without long-term current use of insulin (HCC) Expected: 07/25/2022 (Approximate), Expires: 09/24/2022 [facility] Work Phone: Comment on above: Expected: 07/25/2022 (Approximate), Expires: 09/24/2022 Start: 07-25-2022 End: 09-24-2022 LIPID PANEL BASIC LIPID PANEL BASIC Lab Routine Controlled type 2 diabetes mellitus without complication, without long-term current use of insulin (HCC) Hyperlipidemia, unspecified hyperlipidemia type Expected: 07/25/2022 (Approximate), Expires: 09/24/2022 [facility] Work Phone: Comment on above: Expected: 07/25/2022 (Approximate), Expires: 09/24/2022 Start: 07-18-2022 Hemoglobin A1c/Hemoglobin.total in Blood HBA1C [facility] Start: 07-17-2022 3 comp foot exam completed DIABETIC FOOT EXAM [facility] Start: 07-17-2022 Diabetic foot examination Diabetic F oot Exam [facility] Start: 05-08-2022 Influenza vaccination INFLUENZA (#1) [facility] Start: 04-12-2022 Hepatitis B screening URINE ALBUMIN:CREATININE RATIO [facility] Start: 02-24-2022 Patient discharge [facility] Work Phone: Start: 02-24-2022 Referral to service [facility] Work Phone: Start: 02-21-2022 Following clinical p athway protocol [facility] Work Phone: Start: 02-21-2022 Ambulation without limitation [facility] Work Phone: Start: 02-21-2022 Assessment of risk o f venous thromboembolism [facility] Work Phone: Start: 02-21-2022 Continuous positive airway pressure ventilation treatment [facility] Work Phone: Start: 02-21-2022 Incentive spirometry [facility] Work Phone: Start: 02-21-2022 Insertion of cathete r into peripheral vein [facility] Work Phone: Start: 02-21-2022 Measuring intake and output [facility] Work Phone: Start: 02-21-2022 Providing care accor ding to standard [facility] Work Phone: Start: 02-21-2022 Referral to occupati onal therapist [facility] Work Phone: Start: 02-21-2022 Referral to service [facility] Work Phone: Start: 02-21-2022 [facility] Work Phone: Start: 02-21-2022 Verification routine [facility] Work Phone: Start: 02-21-2022 Admission procedure [facility] Work Phone: Start: 02-21-2022 Urinalysis complete panel - Urine [facility] Work Phone: Start: 02-11-2022 Glaucoma screening Dilated Retinal E xam [facility] Start: 02-11-2022 Hepatitis C antibody , confirmatory test DILATED RETINAL EXAM [facility] Start: 01-23-2022 Hemoglobin A1c/Hemoglobin.total in Blood HBA1C [facility] Start: 11-17-2021 COVID-19 VACCINE (4 - Booster for Moderna series) COVID-19 VACCINE (4 - Booster for Moderna series) [facility] Start: 09-14-2021 COVID-19 VACCINE (5 - Booster for Moderna series) COVID-19 VACCINE (5 - Booster for Moderna series) [facility] Start: 09-14-2021 COVID-19 VACCINE (5 - Moderna series) COVID-19 VACCINE (5 - Moderna series) [facility] Start: 09-07-2021 ADVANCE DIRECTIVE DISCUSSION ADVANCE DIRECTIVE DISCUSSION [facility] Start: 06-22-2020 FECAL OCCULT BLOOD FECAL OCCULT BLOO D [facility] Start: 2015 RSV Vaccine (1 - 1-d ose 75+ series) RSV Vaccine (1 - 1-dose 75+ series) [facility] Start: 2000 RSV Vaccine (1 - 1-d ose 60+ series) RSV Vaccine (1 - 1-dose 60+ series) [facility] Start: 1958 Anxiety Screening Anxiety Screening [facility] End: 03-06-[address]24 CT BRAIN WO IVCON CT BRAIN WO IVCON Radiology Routine Other hydrocephalus (HCC) 1 Occurrences starting 02/05/2023 until 03/06/2024 [facility] Work Phone: Comment on above: 1 Occurrences starti ng 02/05/2023 until 03/06/2024 End: 03-28-2023 Ct head/brain w/o contrast material CT BRAIN WO IVCON Radiology Routine Other hydrocephalus (HCC) S/P PASTER SUPERVISOR shunt 1 Occurrences starting 02/26/2022 until 03/28/2023 [facility] Work Phone: Comment on above: 1 Occurrences starti ng 02/26/2022 until 03/28/2023 End: 04-05-2023 Ct head/brain w/o contrast material CT BRAIN WO IVCON Radiology Routine Other hydrocephalus (HCC) 1 Occurrences starting 03/06/2022 until 04/05/2023 [facility] Work Phone: Comment on above: 1 Occurrences starti ng 03/06/2022 until 04/05/2023 Cystourethroscopy CYSTO.PANENDO Procedures Routine Urine retention 1 Occurrences starting 01/07/2023 [facility] Work Phone: Comment on above: 1 Occurrences starti ng 01/07/2023 End: 09-05-2023 DXA-AXIAL SKELETON DXA-AXIAL SKELETON Radiology Routine Encounter for screening for osteoporosis Unspecified menopausal and perimenopausal disorder 1 Occurrences starting 08/06/2022 until 09/05/2023 [facility] Work Phone: Comment on above: 1 Occurrences starti ng 08/06/2022 until 09/05/2023 Patient Education Coronavirus Di sease 2019 (COVID-19): Caring for Yourself or Others ED - COVID Monoclonal AB Infusion ... [facility] Work Phone: Patient referral [facility] Work Phone: End: 02-06-2024 US KIDNEY/BLADDER US KIDNEY/BLADDER Radiology Routine Mixed stress and urge urinary incontinence Urine retention 1 Occurrences starting 01/07/2023 until 02/06/2024 [facility] Work Phone: Comment on above: 1 Occurrences starti ng 01/07/2023 until 02/06/2024 [facility] Immunizations Immunization Date Immunization Notes Care Provider Fa cili 06-07-2022 influenza, high-dose , quadrivalent vaccine (FLUZONE HIGH DOSE QUADRIVALENT) Immunization [place] Work Phone: [facility] Work Phone: 06-07-2022 influenza virus vaccine, unspecified formulation Harsh Mcnair MD Work Phone: [facility] 07-20-2021 COVID-19 vaccine, ag e 12+ yr (PFIZER-LuximNTWorkTouch - PURPLE TOP) Harsh Mcnair MD Work Phone: [facility] 05-11-2021 influenza, high dose seasonal, preservative-free Harsh Mcnair MD Work Phone: [facility] 12-30-2020 zoster vaccine recombinant Harsh Mcnair MD Work Phone: [facility] Work Phone: 11-05-2020 Covid (Pfizer) Dr. Jesus Longo Work Phone: [facility] 07-24-2020 zoster vaccine recombinant Harsh Mcnair MD Work Phone: [facility] Work Phone: 05-19-2020 influenza, high-dose , quadrivalent vaccine (FLUZONE HIGH DOSE QUADRIVALENT) Harsh Mcnair MD Work Phone: [facility] 05-27-2019 influenza, high dose seasonal, preservative-free Harsh Mcnair MD Work Phone: [facility] Work Phone: 04-15-2019 tetanus toxoid, redu denis diphtheria toxoid, and acellular pertussis vaccine, adsorbed Harsh Mcnair MD Work Phone: [facility] 05-14-2018 influenza, high dose seasonal, preservative-free Harsh Mcnair MD Work Phone: [facility] Work Phone: 06-07-2017 influenza, high dose seasonal, preservative-free Harsh Mcnair MD Work Phone: [facility] 06-17-2016 influenza, high dose seasonal, preservative-free Harsh Mcnair MD Work Phone: [facility] Work Phone: 06-13-2015 influenza, high dose seasonal, preservative-free Harsh Mcnair MD Work Phone: [facility] 09-27-2014 pneumococcal conjuga te vaccine, 13 valent Harsh Mcnair MD Work Phone: [facility] Work Phone: 06-09-2014 influenza, high dose chema, preservative-free Harsh Mcnair MD Work Phone: [facility] 06-22-2012 zoster vaccine, live Harsh rodríguez MD Work Phone: [facility] 06-02-2012 influenza virus vaccine, unspecified formulation Harsh Mcnair MD Work Phone: [facility] 08-04-2011 tetanus toxoid, redu denis diphtheria toxoid, and acellular pertussis vaccine, adsorbed Harsh Mcnair MD Work Phone: [facility] 06-24-2011 influenza virus vaccine, unspecified formulation Harsh Mcnair MD Work Phone: [facility] Work Phone: 08-05-2006 pneumococcal polysaccharide vaccine, 23 valent Harsh Mcnair MD Work Phone: [facility] 07-08-2006 influenza virus vaccine, unspecified formulation Harsh Mcnair MD Work Phone: [facility] Work Phone: 07-02-2005 pneumococcal polysaccharide vaccine, 23 valent Harsh Mcnair MD Work Phone: [facility] Work Phone: 08-21-1998 diphtheria and tetan us toxoids, adsorbed for pediatric use Harsh Mcnair MD Work Phone: [facility] 08-15-1998 pneumococcal polysaccharide vaccine, 23 valent Harsh Mcnair MD Work Phone: [facility] 04-19-1960 trivalent poliovirus vaccine, live, oral Harsh Mcnair MD Work Phone: [facility] Payers Date Payer Category Payer Self-pay [id number] 2022 Private Health Insurance [id number] 2020 Private Health Insurance [facility] INDEMNITY [id number] 2020-Present [phone] [address] [place] [address] Indemnity [id number] 2020 Private Health Insurance [id number] 2005 Medicare [id number] 2005 Medicare MEDICARE MEDICAR E A AND B [id number] 2005-Present [phone] [place] [address] Medicare [id number] 2005 Medicare MEDICARE MEDICAR E A AND B [id number] 2005-Present [phone] [place] [address] Medicare [id number] Unknown [id number] Unknown [id number] Unknown [id number] Unknown [id number] Unknown [id number] Unknown [id number] Unknown [id number] Social History Date Type Detail Facility Start: 09-04-2021 End: 07-22-2022 Tobacco smoking status NHIS Unknown if ever smoked [facility] Start: 1940 Sex Assigned At Female W [facility] Start: 05-21-2022 End: 07-22-2022 Tobacco smoking status NHIS Never smoked tobacco [facility] Start: 09-03-2021 End: 10-09-2021 Alcohol intake Current drinker of alcohol (finding) [facility] Start: 07-04-2020 End: 07-30-2022 History SDOH Financial 5 [facility] Start: 07-04-2020 End: 07-30-2022 History SDOH Food Worry 1 [facility] Start: 07-04-2020 End: 07-30-2022 History SDOH Transport Med 2 [facility] Start: 1940 Sex Assigned At Not on file [facility] Start: 09-09-2021 End: 08-06-2022 Exposure to SARS-CoV-2 (event) Not sure [facility] Start: 03-02-2022 History SDOH Alcohol Std Drinks 98 [facility] Start: 03-02-2022 History SDOH Social Connections Buddhism 3 [facility] Start: 03-02-2022 End: 07-30-2022 History SDOH Social Connections Living 4 [facility] Start: 03-02-2022 End: 07-30-2022 History SDOH Physical Activity DPW 0 [facility] Start: 05-21-2022 Tobacco use and exposure Smoke less tobacco non-user [facility] Start: 08-13-2020 End: 07-30-2022 History of Social function [facility] Start: 08-13-2020 End: 07-30-2022 Social connection and isolation panel [facility] Start: 08-04-2021 End: 09-03-2021 Do you belong to any clubs or organizations such as hindu groups, unions, fraternal or athletic groups, or school groups? Yes [facility] Are you now , , , , never or living with a partner? [facility] How often to you hav e a drink containing alcohol? Never [facility] How many standard dr inks containing alcohol do you have on a typical day? Patient does not drink [facility] Do you feel stress - tense, restless, nervous, or anxious, or unable to sleep at night because your mind is troubled all the time - these days [OSQ] Only a little [facility] (I/We) worried maggie er (my/our) food would run out before (I/we) got money to buy more. Never true [facility] In the past 12 month s, was there a time when you were not able to pay the mortgage or rent on time? No [facility] Start: 12-08-2024 Sex Female (finding) [facility] [facility] Medical Equipment Procedure Code Equipment Code Equipment Origin al Text Equipment Identifier Dates Catheter Bactise al 14cm External Drainage Csf Sterile Latex Free - [id number] Start: 04-13-2020 Catheter Bactise al 120cm External Drainage Csf Sterile Latex Free - [id number] Start: 04-13-2020 [place] Holter [place] 6mm Plastic Base 15cm Shunt Ventricular Catheter - [id number] Start: 04-13-2020 Catheter Edm Bar ium Silicone 80cm Drainage Open Tip Impregnate Sterile - [id number] Start: 02-14-2020 Programmable Awa ve Inline Small Valve W/Siphonguard [id number] Start: 04-13-2020 [id number], [id number], [id number] Start: 09-09-2018 End: 10-06-2022 Comment on above: Test blood sugar 1 t imes daily. Dx Type 2 DM Controlled E11.9 Insulin: No. Test blood sugar(s) 1 times daily. Dx: Type 2 DM- Controlled E11.9 Insulin: No Codman Certas programmable valve inlinesmart valve with siphongaurd FDA Start: 04-13-2020 Codman Certas programmable valve inlinesmart valve with siphongaurd FDA Start: 04-13-2020 Codman Certas programmable valve inlinesmart valve with siphongaurd FDA Start: 04-13-2020 Codman Certas programmable valve inlinesmart valve with siphongaurd FDA Start: 04-13-2020 Codman Certas programmable valve inlinesmart valve with siphongaurd FDA Start: 04-13-2020 Codman Certas programmable valve inlinesmart valve with siphongaurd FDA Start: 04-13-2020 Codman Certas programmable valve inlinesmart valve with siphongaurd FDA Start: 04-13-2020 Codman Certas programmable valve inlinesmart valve with siphongaurd FDA Start: 04-13-2020 Codman Certas programmable valve inlinesmart valve with siphongaurd FDA Start: 04-13-2020 Goals Date Patient Goal Desired Activity /State Functional Status Date Assessment Result Facility 02-24-2022 Functional status Ambulates [facility] Work Phone: Mental Status Date Assessment Result Facility 02-24-2022 Cognitive function Voice/Name [facility] Work Phone: 02-21-2022 Cognitive function Level Of Cons ciousness Awake;Alert;Appropriate;Follow s Commands [facility] Work Phone: 09-06-2021 Cognitive function Voice/Name;To uch/Shaking;Light Pain;Deep Pain [facility] Work Phone: 09-04-2021 Cognitive function Level Of Cons ciousness Awake;Alert;Appropriate;Follow s Commands [facility] Work Phone: Clinical Notes 04-13-2020 to 01-15-2024 Telephone Encounter - Shahrzad Anderson MA - 01/15/2024 2:33 PM EDTTelephone Encounter - Shahrzad Anderson MA - 01/15/2024 2:33 PM EDTTelephone Encounter - Afsaneh Cruz MA - 01/14/2024 3:08 PM EDT Note Date & Type Note Facility 01-15-2024 Telephone encounter Note Form faxed to [facility]. PCP updated. Shahrzad Anderson MA [facility] 01-15-2024 Miscellaneous Notes Form faxed to [facility] office. PCP updated. Shahrzad Anderson MA OK to send to new PCP and change PCP Harsh Mcnair MD Pt is currently receiving prescription from Dr. Ivy as of September 2023 and is under her care. She is currently at [facility]. The documents are requesting an OV note in the past year about CPAP, which we do not have listed in our visits. Do you still want to complete form or should we have new PCP complete. Please review and advise. Can we updated PCP? Afsaneh Cruz MA Type of letter/form/fax request - Medical Necessity-PAP supplies Form received from fax on 1 floor and placed on MD desk (Dr. Mcnair) for completion. Completed form needs to be faxed to [facility] at [phone]. [facility] to [facility] when form completed for processing documented in this encounter [facility] 01-15-2024 Telephone encounter Note OK to send to new PCP and change PCP Harsh Mcnair MD [facility] 01-14-2024 Telephone encounter Note Pt is currently receiving prescription from Dr. Ivy as of September 2023 and is under her care. She is currently at [facility]. The documents are requesting an OV note in the past year about CPAP, which we do not have listed in our visits. Do you still want to complete form or should we have new PCP complete. Please review and advise. Can we updated PCP? Afsaneh Cruz MA [facility] 01-14-2024 Telephone encounter Note Type of letter/form/fax request - Medical Necessity-PAP supplies Form received from fax on 1 floor and placed on MD desk (Dr. Mcnair) for completion. Completed form needs to be faxed to [facility] at [phone]. [facility] to [facility] when form completed for processing [facility] 09-24-2023 Note HNO ID: [id number] Author: RAMÍREZ LEAVITT PA-C Service: ? Author Type: Physician [employer] Type: Progress Notes Filed: 09/25/2023 08:21 Note Text: CC: PASTER SUPERVISOR shunt f/u HPI: Mrs Mike comes to clinic today for surgical f/u. 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 Ramona was last seen on 02/05/23 where she was ambulating well with stable complaints of night time urinary urgency and issues with short term memory. In July of last year she moved to a nursing facility and has been much less active due to COVID outbreaks. Since last visit her walking and short term memory have decline. No change in urinary control Focused Exam: Right frontal shunt site examined, [...] XII: Tongue protrusion full and midline Motor: shuffling gait Impression: Mrs Ramona Mike is a pleasant 83 year old female with a history of NPH. 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 Since last visit, Ramona moved to a nursing facility and unfortunately has been much less active due to COVID lock downs. She is now only ambulating a short distance with her walker due to shuffling gait. Her short term memory has also continued to decline since last visit but she denies changes in urinary control. CT brain reviewed which shows stable enlarged ventricle system, PASTER SUPERVISOR shunt catheter in place and no acute abnormalities. We discussed benefits and risks of PASTER SUPERVISOR shunt adjustment. After discussion, Ramona and her daughter would like to continue to work with PT to try and become more active without adjusting shunt. Plan for follow up in 6-[address] brain. Plan: Shunt information Shunt type: Certas Initial settin New settin Ramírez Leavitt PA-C [facility] 09-24-2023 Note HNO ID: [id number] Author: ZHANNA CARRERA RT(R) Service: ? Author Type: Rn Placement Type: Progress Notes Filed: 09/24/2023 13:53 Note Text: Radiology Service Progress Note PATIENT NAME: Ramona Mike DATE OF SERVICE: September 24, 2023 TIME: 1:49 PM PATIENT IDENTITY VERIFICATION COMPLETED USING TWO [...] IV DATA: Not applicable SIGNED BY: RT Luis Fernando(R) September 24, 2023 1:49 PM [facility] 05-06-2023 Miscellaneous Notes Spoke with pt's daughter and information listed below given. Pt's daughter verbalizes understanding. Bj Santana LPN Message left for Roselyn to call back. Shahrzad Anderson Ma The ASA was probably to reduce the risk of AL; it would be OK to stop this now It would be OK to take 1000 mg tylenol rather than the mobic Harsh Mcnair MD Daughter calling to let you know pt was admitted into [facility] yesterday 05-04-23. Daughter has 2 questions. 1)[facility] would like to know why pt is taking baby aspirin daily. 2) [facility] asking if pt would be able to take 1000 mg of extra strength Tylenol instead of Meloxicam due to possible bleeding. Please advise daughter on both issues above. Bj Santana LPN documented in this encounter [facility] 04-21-2023 Miscellaneous Notes Talia with [facility] calls to report that pt is looking at moving into their facility for Assisted Living. Talia requested face sheet, H&P, OV notes. Faxed to: [phone] as reqeusted. Lynette Adamson LPN documented in this encounter [facility] 04-17-2023 Note HNO ID: [id number] Author: Laquita Coulter APRN.MANUFACTURING MANAGEMENT ASSOCIATE Service: ? Author Type: Nurse Practitioner Type: Progress Notes Filed: 04/17/2023 3:34 PM Note Text: This is a 82 year old female who presents today with: Patient presents with: Follow Up: admission to [facility]. HISTORY OF PRESENT ILLNESS: Ramona Mike is a 82 year old female. Patient presents with: Follow Up: admission to [facility]. Here in the office for follow-up prior [facility] Daughter present for this visit. Using [...] TAKE TWO TABLETS BY MOUTH WITH DINNER. Zapproved ULTRA TEST test strip TEST BLOOD SUGAR [...] REVIEW OF S (more content not included)... [facility] 04-17-2023 Instructions Laquita Coulter APRN.ODILON - 04/17/2023 1:45 PM EDT Contact the [...] sooner as needed. documented in this encounter [facility] 04-17-2023 History of Present illness Narrative This is a 82 year old female who presents today with: Patient presents with: Follow Up: admission to [facility]. HISTORY OF PRESENT ILLNESS: Ramona Mike is a 82 year old female. Patient presents with: Follow Up: admission to [facility]. Here in the office for follow-up prior to admission to long-term care facility ( [facility]), Daughter present for this visit. [...] help at home. Dementia: Following with brain Gelesis, Marcelo Moreoni MANUFACTURING MANAGEMENT ASSOCIATE. Taking Aricept 5 mg daily. Shunt in [...] discussed and patient voices understanding. Laquita Coulter APRN.CNP This note was partially generated using Tweegee voice recognition system. Note was reviewed for accuracy. There may be minor misspellings or grammar miscues with Tweegee voice recognition. documented in this encounter [facility] 04-03-2023 Miscellaneous Notes The following approved medication requests have been transmitted electronically. Requested Prescriptions Pending Prescriptions Disp Refills meloxicam (MOBIC) 7.5 mg tablet 30 tablet 5 Sig: Take 1 tablet by mouth once daily. Take with food. Zaheer Geller APRN.CNP Patient phones requesting refills as follows: Requested Prescriptions Pending Prescriptions Disp Refills meloxicam (MOBIC) 7.5 mg tablet 30 tablet 5 Sig: Take 1 tablet by mouth once daily. Take with food. Please review and advise. Sofie Almodovar documented in this encounter [facility] 02-06-2023 Miscellaneous Notes This info was relayed to pts daughter. OK fro Tradjenta as ordered; it appears this is preferred by her insurance Harsh Mcnair MD Insurance has reviewed this and it has been denied. Response is. Date: 02/06/2023 Harsh Mcnair [address] [place] [address] RE: Denial of request for coverage of Januvia (sitagliptin) Dear RAMONA MIEK: You or your doctor recently requested prescription [...] Roselyn is calling Harsh Mcnair MD today. [facility] pharmacy advised daughter authorization is needed before they can fill SITagliptin phosphate (JANUVIA) 100 mg tablet A new prescription was sent on 01/29 Please contact pharmacy for clarification and return daughters call at [phone] documented in this encounter [facility] 02-05-2023 Note HNO ID: [id number] Author: Marcelo Mancini APRN.ODILON Service: ? Author Type: Nurse Practitioner Type: Progress Notes Filed: 02/05/2023 5:40 PM Note Text: Ramona Mike 1940 [id number] [place] [address] February 05, 2023 [facility] VIRTUAL FOLLOW-UP NOTE This visit was conducted using audio + video elements. I have communicated my name and active licensure. The patient's identity and physical location were verified at the time of this visit. Either the patient or their legal manufacturer's representative has been informed of the risks [...] days ago They have looked into the [employer] system but Roselyn feels it may be too cumbersome- and indeed there is some equipment involved They did have a [employer] appt today and they were generally happy w/ her gait and how her CTH looked- she shunt appears to be working well. She does use a walker - and has not had any falls recently. Other interval history: Falls: negative Sleep: described as normal, feels rested upon waking- +CHARLES on CPAP Mood: "good" ADL's requires assistance with the following ADL's: [...] community resources to help care for yourself? wad lubricator Has your caregiver accompanied you today? Yes [...] such as wal (more content not included)... [facility] 02-05-2023 Instructions Marcelo Mancini APRN.CNP - 02/05/2023 5:38 PM EDT Give the vibegron ([employer]) more time to work later in the [...] recheck on things documented in this encounter [facility] 02-05-2023 History of Present illness Narrative Ramona C Rashid 1940 [id number] [facility] [address] February 05, 2023 [facility] VIRTUAL FOLLOW-UP NOTE This visit was conducted using audio + video elements. I have communicated my name and active licensure. The patient's identity and physical location were verified at the time of this visit. Either the patient or their legal manufacturer's representative has been informed of the risks and benefits of -- and alternatives to -- treatment through a remote evaluation and consents to proceed with the evaluation remotely. Accompanied by: daughter Roselyn Mike is a pleasant 82 year old female seen today for a follow up visit. Ramona Mike is being followed for Dementia without behavioral disturbance, unspecified in the setting of [facility] s/p VPS placement in 2019, and vascular [...] days ago They have looked into the [employer] system but Roselyn feels it may be [...] rested upon waking- +CHARLES on CPAP Mood: "good" ADL's requires assistance with the following ADL's: [...] No Social History reviewed by Marcelo Mancini APRN.MANUFACTURING MANAGEMENT ASSOCIATE PATIENT-ENTERED DATA Patient-Reported 05/21/2022 Where are you currently living? Home / Private residence Are you using any community resources to help care for yourself? wad lubricator Has your caregiver accompanied you today? Yes [...] by mouth once daily. Take with food. ONETOUCH ULTRA TEST test strip TEST BLOOD [...] -can name, repeat with no dysarthria Mood: "good" Affect: pleasant PDW:no SI:no Self-injurious behavior:no Emotional [...] female with a history of hydrocephalus (s/p PASTER SUPERVISOR shunt April 2020), hypertension, hyperlipidemia, and diabetes [...] due to medical condition without behavioral disturbance ([facility]) (primary encounter diagnosis) (G91.2) NPH (normal pressure hydrocephalus) ([facility]) (Z98.2) S/P PASTER SUPERVISOR shunt (F33.41) Major depressive disorder, recurrent, in partial remission ([facility]) (N39.3) Female stress incontinence PLAN: Give the Calmegron ([employer]) more time to work later in the [...] on the date of service which included isnf-hb-thik patient care and counseling and educating the patient/daughter. Marcelo Mancini, MSN, SAND CUTTER OPERATOR-C, CNRN CC: 1. Harsh Mcnair MD, (fax) [phone] documented in this encounter [facility] 02-05-2023 Note HNO ID: [id number] Author: Ramírez Leavitt PA-C Service: ? Author Type: Physician Diesel Locomotive Firer Type: Progress Notes Filed: 02/05/2023 3:15 PM Note Text: CC: PASTER SUPERVISOR shunt f/u HPI: Mrs Mike comes to clinic today for surgical f/u. 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 [...] with a history of NPH. 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 [...] reviewed which shows stable enlarged ventricle system, PASTER SUPERVISOR shunt catheter in place and no acute abnormalities. Follow up in 6-[address] brain Plan: Shunt information Shunt type: Certas Initial settin New settin Ramírez Leavitt PA-C [facility] 02-05-2023 Note HNO ID: [id number] Author: RT Miguel(R) Service: Radiology Author Type: [...] RT Jeffrey(R) February 05, 2023 1:45 PM [facility] 02-05-2023 History of Present illness Narrative CC: PASTER SUPERVISOR shunt f/u HPI: Mrs Mike comes to clinic today for surgical f/u. 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 [...] with a history of NPH. 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 [...] reviewed which shows stable enlarged ventricle system, PASTER SUPERVISOR shunt catheter in place and no acute abnormalities. Follow up in 6-[address] brain Plan: Shunt information Shunt type: Certas Initial settin New settin Ramírez Leavitt PA-C documented in this encounter [facility] 02-05-2023 History of Present illness Narrative [...] 2023 1:45 PM documented in this encounter [facility] 02-03-2023 Miscellaneous Notes Patient has been identified by name and date of : Yes Requested Prescriptions Pending Prescriptions Disp Refills SITagliptin phosphate (JANUVIA) 100 mg tablet 90 tablet 3 Sig: Take 1 tablet by mouth once daily. RX INSTRUCTIONS: Patient aware RX will be sent to pharmacy. No need to notify patient. Bonnie Santana Pss documented in this encounter [facility] 01-29-2023 Note HNO ID: [id number] Author: Harsh Mcnair MD Service: ? Author [...] from laying down. She has a toilet launcher" that helps push her up off the [...] will take Miralax. Follows with Urologist Cristine Puri for urine retention. Had renal ultrasound and cysto done recently. No longer using Ditropan and started on Gemtesa 75 mg daily. Dementia: Following with [facility] Marcelo Vizcainoangelique MANUFACTURING MANAGEMENT ASSOCIATE. Is on Aricept 5 mg once daily. [...] COLONOSCOPY FLX DX W/COLLJ SPEC WHEN PFRMD 2-11-04 Colonoscopy-per repeat in LIG/TRNSXJ FLP TUBE ABDL/VAG [...] by mouth once daily. Take with food. ONETOUCH ULTRA TEST test strip TEST BLOOD [...] ORAL) Take by (more content not included)... [facility] 01-27-2023 Note HNO ID: [id number] Author: Kenneth Park Jr., MD Service: ? Author Type: Physician Type: Procedures Filed: 01/27/2023 11:07 AM Note Text: CYSTOSCOPY PROCEDURE NOTE: Ramona Mike is a 82 year old female who presents with urge incontinence for a cystoscopy. Pt ID verified with patient: Yes Fire risk assessment done Procedure verified with patient: Yes Procedure confirmed with physician and system support administrator: Yes UNIVERSAL PROTOCOL / SAFETY CHECKLIST Procedure [...] fluid intake as directed. ASSESSMENT/PLAN: Behavioral management Feura Bushtes Cysto nl Set for prn Kenneth Park Jr, MD [facility] 01-16-2023 Miscellaneous Notes The following approved [...] advise. ATILIO Looney documented in this encounter [facility] 01-15-2023 Miscellaneous Notes Paperwork completed and faxed back to information below. Afsaneh Cruz Ma Type of form: New Rx for CPAP supplies from [facility]. CMN for DME Form received via fax When form is completed, Fax form to [phone] Form has been forwarded to Physician Desk: Dr. Xu Cruz Ma documented in this encounter [facility] 01-13-2023 Miscellaneous Notes Call to daughter, Roselyn and notified her of message below from [...] Kaelyn Ochoa LPN documented in this encounter [facility] 01-13-2023 Miscellaneous Notes [facility] pharmacy notified to remove Ditropan from pt med list. Shahrzad Andesron Ma She was taken off Ditropan due to memory changes; she is now on Gemtesa instead Harsh Mcnair MD documented in this encounter [facility] 01-07-2023 Instructions Cristine Puri APRN.MANUFACTURING MANAGEMENT ASSOCIATE - 01/07/2023 9:18 AM EDT Images from [...] patient s medical history, current prescription and yidb-kqk-razhpfm medications, and allergies to medications, including anesthetics. [...] her bladder before the procedure begins. The gkrn-ic-jdji process may be similar to this: The [...] urethral opening to relieve discomfort Take an hzpu-zgy-urvzxjy pain medicine If necessary, the urologist may [...] urine Fever Severe discomfort References: NIH: National [place] of Diabetes and Digestive and Kidney Diseases. Cystoscopy and Ureteroscopy Accessed 03/05/2017. Kimberly Espinoza, Lyndon D, Ravi H, Selvin RIVERO. The History of Cystoscopy in Urology, Internet Journal of Urology. 14,1 (2015) Health Elements.Reverse Medical Accessed 03/05/2017. U[employer]. What is Cystoscopy? Accessed 03/05/2017. Copyright 0250-4456 The [facility]. All rights reserved. documented in this encounter [facility] 01-07-2023 History of Present illness Narrative [facility] [...] fluid intake: water diet caffeine free pop JAVA J2EE APPLICATION DEVELOPER: Gynec: G 3, P 3 Vaginal delivery:Yes [...] breath CARDIOVASCULAR: Negative for chest pain or AL Taking a blood thinner? NO GI: Positive [...] - ICD9: 332.0, ICD10: G21.4 -noted Cristine Puri APRN.CNP documented in this encounter [facility] 12-25-2022 Miscellaneous Notes Pt notified. Transferred to PSS to schedule appt. Shahrzad Anderson Ma I [...] getting something like this. Please advise daughter. Bj Santana LPN documented in this encounter [facility] 10-27-2022 Miscellaneous Notes The following approved medication requests have been transmitted electronically. Requested Prescriptions Signed Prescriptions Disp Refills donepezil (ARICEPT) 5 mg tablet 90 tablet 1 Sig: Take 1 tablet by mouth daily with breakfast. Marcelo Mancini APRN.ODILON documented in this encounter [facility] 10-22-2022 Miscellaneous Notes Patient daughter Roselyn [...] TABLETS BY MOUTH WITH DINNER. Laquita Coulter APRN.ODILON Patient has been identified by name and [...] 7.8 07/26/2021 7.4 04/12/2021 7.1 Thank you. Bj Santana LPN documented in this encounter [facility] 10-14-2022 Miscellaneous Notes Roselyn notified and voiced understanding. Shahrzad Anderson Ma They may double the dose of the clear a lax and see if this will be effective over the next 2-3 days Harsh Mcnair MD Nohemi Dempsey called to report pt is having Daughter [...] an apt and if needed. Please advise daughter Roselyn documented in this encounter [facility] 10-03-2022 Miscellaneous Notes Mirabegron not covered by patient's insurance (per pharmacy) - request from pharmacy to order vibegron The following approved medication requests have been transmitted electronically. Requested Prescriptions Signed Prescriptions Disp Refills vibegron (GEMTESA) 75 mg tablet 90 tablet 1 Sig: Take 1 tablet by mouth once daily. Authorizing Provider: MARCELO MANCINI APRN.ODILON documented in this encounter [facility] 10-01-2022 History of Present illness Narrative Per discussion w/ Dr. Casper- OK to discontinue oxybutynin and switch to mirabegron Orders placed Will ensure [facility] message is read- otherwise will reach out via phone to convey this change Marcelo Mancini, MSN, SAND CUTTER OPERATOR-C, CNRN documented in this encounter [facility] 09-18-2022 Miscellaneous Notes Daughter called and [...] Please advise daughter. documented in this encounter [facility] 08-06-2022 History of Present illness Narrative Aquatic Habitat Biologist offered: Patient declines. Ramona is a 82 [...] L3 SAB0 IAB0 Ectopic0 Multiple0 Live Births0 Dimmer Board Operator History LMP: Postmenopausal Age at Menarche: Age at First : Age at Menopause: Dimmer Board Operator History Comments: Sexual Activity: Not Currently; [...] medication updated:No EXAM: BP 118/80 Ht 4' 11.5" (1.51m) Wt 174 lb 4.8 oz (79.1kg) [...] external genitalia normal, normal Bartholin's glands, urethra, Tees Toh's glands, no vulvar lesions, no cervical lesions, [...] Vanessa Watson MD documented in this encounter [facility] 07-30-2022 History of Present illness Narrative Chief Complaint Patient presents with: Follow Up HPI Ramona Mike is a 82 year old female who presents here today for Above Complaints. Here with HH nurse Maegan Hernandez. She has her daughters with her [...] mobic 7.5 mg daily. Pt presented to [facility] ER on 07/23/22 with c/o nausea, vomiting, [...] by mouth with dinner. blood sugar diagnostic (Little Big ThingsTOUCH ULTRA TEST) test strip Test blood sugar [...] Past Histories independently gathered by the clinical system support administrator and the remaining scribed note accurately describes [...] Shahrzad Anderson Ma documented in this encounter [facility] 07-30-2022 Miscellaneous Notes LVM about appointment change per email documented in this encounter [facility] 07-22-2022 Miscellaneous Notes Noted I agree [...] Kaelyn Ochoa LPN documented in this encounter [facility] 07-15-2022 Miscellaneous Notes Pt daughter Roselyn notified. Shahrzad Anderson Ma Noted; I will review her meds at her appt next week and decide what would be best. The after visit summary should be available on A-STARt Harsh Mcnair MD Pts daughter called in [...] summary could be sent through her mother's MyChart so that she could see what was gone over. Please call and advise. 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 The assessment consisted of a brief interview [...] female with a history of hydrocephalus (s/p PASTER SUPERVISOR shunt April 2020), hypertension, hyperlipidemia, and diabetes [...] with bathing. Independent with dressing and toileting. Aircraft Log Clerk: Reliant on daughters and caregivers . Appointments: Reliant on her daughter . Medications: Reliant on her daughters and caregivers . Finances: Reliant on her daughter . They noticed math errors. Driving: Discontinued last summer. MEDICAL HISTORY: See records for full review. Relevant diagnoses include hydrocephalus (s/p PASTER SUPERVISOR shunt April 2020), hypertension, hyperlipidemia, and diabetes. [...] revealed: Head CT at outside hospital (02/21/22): "Interval right frontal PASTER SUPERVISOR shunt catheter. There is no other significant interval change when compared to the previous examination." Head CT (08/23/2020): "Stable positioning of a right frontal approach PASTER SUPERVISOR shunt catheter with slight improvement in moderate supratentorial ventriculomegaly. No acute intracranial findings." Medication List: Current Outpatient Medications on File [...] by mouth with dinner. blood sugar diagnostic (Zapproved ULTRA TEST) test strip Test blood sugar [...] years. She reported her current mood is, "ok." She endorsed occasional depression that comes and goes. They reported moments of anxiety associated with perseverations. She reported occasional suicidal ideation with no plan/intent. She reported no auditory/visual hallucinations. PSYCHOSOCIAL HISTORY: Education: Completed a high school degree and 1 year of secretarial school with no early attention/learning concerns. Occupation: Retired approximately 20 years ago. 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 Family: The patient was 5 years ago. She has 3 children. Living situation: Resides in a house with 24/7 caregiver support. BEHAVIORAL OBSERVATIONS: The patient was accompanied by her daughter (Roselyn). She was oriented to most aspects of person, place, and time though initially stated "Trump" as the current president and later stated Biden. Vision and hearing were adequate for testing [...] female with a history of hydrocephalus (s/p PASTER SUPERVISOR shunt April 2020), hypertension, hyperlipidemia, and diabetes [...] Ph.D. Staff Neuropsychologist Time testing and scoring (upholstery tech): 2.5 hours Time completing additional tests, analyzing, interpreting and incorporating other available medical information, clinical data review, and report writing (by neuropsychologist): 3 hours Tests Administered: [place] Naming Test Brief Visuospatial Memory Test-Revised Controlled Oral Word Association Test DKEFS Color-Word Interference Geriatric Depression Scale Reed Verbal Learning Test Judgment of Line Orientation- Short Form Test of Practical Judgment [place]ona Making Test WAIS-IV subtests: Coding, Digit Span, Matrix Reasoning, Similarities WMS-IV Logical Memory WRAT-IV Reading documented in this encounter [facility] 03-06-2022 History of Present illness Narrative Summary: [facility] follow up IRB#: [id number] Stave Log Ripsaw Operator: Dr. David Dorsey MD Study Name: [facility] Registry: Characterizing Patient Populations in the Adult Hydrocephalus Clinical Research Network Study Visit Conducted by: Roya Ward Date: March 06, 2022 Patient Patient seen for follow up visit in office on 03/06/2022. Informed consent and eligibility reviewed. Signed copy of consent provided to patient. Christ Cognitive Assessment, symbol digit modalities test, BDI-II, [place] ADL/IADL, and OAB-q short form questionnaire completed with patient. Head circumference obtained. All questions pertaining to the study answered to the patient's satisfaction. Daughter also privately told me that another provider suspects signs of dementia. She forgot to mention this to anyone else today, so I passed that information along to Ramírez Leavitt who said he is going to reach out. Roya Ward, Research Coordinator documented in this encounter [facility] 03-06-2022 History of Present illness Narrative CC: PASTER SUPERVISOR shunt f/u HPI: Mrs Mike comes to clinic today for surgical f/u. 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 [...] with a history of NPH. 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 [...] no abnormality with stable enlarged ventricles and PASTER SUPERVISOR shunt in place. She was treated for dehydration with improvement of symptoms. Mrs Mike is following with Dr Mendoza who is weaning Sinemet in hopes to also improve dizziness. Plan for follow up in 6-[address] brain. Weaning off sinemet due to dizziness Plan: Shunt information Shunt type: Certas Initial settin New settin Ramírez Leavitt PA-C documented in this encounter [facility] 03-03-2022 History of Present illness Narrative March 03, 2022 Collins Mendoza MD [facility] [address] [place] [address] Harsh Mcnair [address] [place] [address] VIRTUAL VISIT Ramona Mike : 1940 Interval History: Ramona Mike is a 81 year old woman with NPH, s/p PASTER SUPERVISOR shunt placed in April 2020, being seen [...] are independent. It was therefore never discussed nenp-xx-gsdr whether the Sinemet was still necessary. Allergies: [...] by mouth with dinner. blood sugar diagnostic (Little Big ThingsTOUCH ULTRA TEST) test strip Test blood sugar [...] which included preparing to see the patient, rexu-fp-ieal patient care, completing clinical documentation, obtaining and/or reviewing separately obtained history, performing a medically appropriate examination, counseling and educating the patient/family/caregiver and ordering medications, tests, or procedures. Thank you for including me in the care of this interesting patient. Collins Mendoza MD Staff Neurologist [facility] Cc: documented in this encounter [facility] 03-03-2022 History of Present illness Narrative [...] here today with her daughterRoselyn for a [facility] ED discharge on 02/24/22. Daughter states that [...] the office and pt was referred to [facility] ED. Pt admitted. Pt has a VV [...] in the am and 0.5 tab pm. [facility] Hospitalist was uncertain why she was being [...] had BP checked since she's been home. [facility] PT came out last week as they [...] tabs po bid. SUMMARY: -Pt discharged from [facility] on 02/24/22 -Admitted for: lightheadedness, dehydration, dizziness, [...] who presented to the emergency department at [facility] on 02/21/2022 for dizziness and vomiting. She presented with her daughter. Her symptoms evidently started on Thursday. She has 30/03 caregivers that help take care of her as the patient does have some mild cognitive impairment and memory loss. She evidently had a fall. The patient does not remember this however with her cognitive impairment her short-term memory is problematic. Patient is a very poor historian. She states when she moves around she gets "dizziness" but she has difficulty quantifying this and [...] head was performed and shows interval right PASTER SUPERVISOR shunt placement with no other interval change or acute findings. This was compared from a CT on 10/12/2019. A shuntogram was performed that showed ventriculoperitoneal shunt placement with apparent continuity of the shunt tube and no abnormalities. Her EKG ws unremarkable. Dr. Pete in the emergency department discussed the case with neurosurgery at [facility] (Dr. Simpson) who accepted the patient [...] Past Histories independently gathered by the clinical system support administrator and the remaining scribed note accurately describes my personal service to the patient. Harsh Mcnair MD The documentation for this note was completed by Afsaneh Cruz Ma acting as scribe for Harsh Mcnair MD. March 03, 2022 2:54 PM. Afsaneh Cruz Ma documented in this encounter [facility] 02-28-2022 Miscellaneous Notes Noted Monitor Harsh Mcnair MD HUBER GALVAN from [facility] HH calls to report that patient rolled out of bed around 7 am this morning. No injuries noted. Vital signs are within normal limits for patient. Lety Simpson RN documented in this encounter [facility] 02-26-2022 Miscellaneous Notes Noted and agree with plan Harsh Mcnair MD Marty , a PT with [facility] calling to state patient's PT plan of care: Patient will be seen 2 times per week for 3 weeks for functional mobility training. Patient declined OT. No call back needed if provider agreeable. Thank you. documented in this encounter [facility] 02-26-2022 Miscellaneous Notes Spoke with patient's [...] Will plan for her to meet with [facility] on 03/06/22 for shunt evaluation. Advised her that it is vital she bring CT obtained locally to upcoming appointment. She verbalized understanding. Dayday Mars RN Roselyn (pt's daughter) called to report pt discharged last evening from [facility] and it was recommended pt contact Dr. Dorsey to schedule shunt check/follow up - [phone]. Should pt continue to take Carbidopa Levodopa 25/100 mg since shunt procedure performed in [address] Dorsey? documented in this encounter [facility] 02-25-2022 History of Present illness Narrative TRANSITION CARE MANAGEMENT (TCM) INITIAL CONTACT [facility] Provider Action/FYI: 7 Day TCM Pt was admitted to [facility] on 02/21/22 and discharged home 02/24/22 Spoke with daughter Roselyn today 02/25/22. Hospital F/U appt made for 03/03/22. No new medications. [facility] discontinued Sinemet as it might be causing [...] might be hidden SUMMARY: -Pt discharged from [facility] on 02/24/22 -Admitted for: lightheadedness, dehydration, dizziness, [...] who presented to the emergency department at [facility] on 02/21/2022 for dizziness and vomiting. [...] states when she moves around she gets "dizziness" but she has difficulty quantifying this and [...] head was performed and shows interval right PASTER SUPERVISOR shunt placement with no other interval change or acute findings. This was compared from a CT on 10/12/2019. A shuntogram was performed that showed ventriculoperitoneal shunt placement with apparent continuity of the shunt tube and no abnormalities. Her EKG ws unremarkable. Dr. Pete in the emergency department discussed the case with neurosurgery at [facility] (Dr. Simpson) who accepted the patient [...] medications discontinued? Told to wean off her Sinemet-[facility] doctor did not understand why she is [...] provider to review documented in this encounter [facility] 02-25-2022 Miscellaneous Notes Opened in error. documented in this encounter [facility] 02-24-2022 Miscellaneous Notes Detailed message left for Charo. Jeyson Torres Ma I will follow for OT, PT, and HH Harsh Mcnair MD Nurse Charo from [facility] states pt is being observed for orthostatic hypotension, dehydration & dizziness. Will possibly discharge today & will be seen by HH 02/26/22. Will pcp follow? PT, OT & HH. Kaelyn Ochoa LPN documented in this encounter [facility] 02-21-2022 Miscellaneous Notes Daughter (Roselyn) calls [...] Christina Garcia RN documented in this encounter [facility] 02-20-2022 Miscellaneous Notes This has been completed and faxed. Afsaneh Cruz Ma Office received fax from [employer] for Certificate of Medical Necessity for pt DME Pap supplies. Please review form and complete. Once completed fax back to [phone]. Afsaneh Cruz Ma documented in this encounter [facility] 01-22-2022 History of Present illness Narrative [...] year. Pt here today with her Caregiver, Maegan Hernandez. Pt has full 24 hour care; [...] sugar free foods, but does go to [employer] on occasion. Depression - Stable with use [...] patient. Will reach for something and here "crunching". Does have falls, uses walker FT. They deny any major falls or injuries. - Has Adv Dir/Living Will scanned into [employer]. Past medical history, appointments, medications, allergies reviewed. [...] by mouth with dinner. blood sugar diagnostic ([employer]CH ULTRA TEST) test strip Test blood sugar [...] Past Histories independently gathered by the clinical system support administrator and the remaining scribed note accurately describes [...] Afsaneh Cruz Ma documented in this encounter [facility] 01-06-2022 Miscellaneous Notes The following approved [...] patient. Priscilla Wells documented in this encounter [facility] 10-09-2021 History of Present illness Narrative Radiology Service Progress Note PATIENT NAME: Ramona Mike DATE OF SERVICE: October 09, 2021 TIME: 12:06 PM PATIENT IDENTITY VERIFICATION COMPLETED USING TWO [...] falls during this visit? Offered Assistance with Transfers/Clothing and Instructed Patient to Remain Seated (Not on Exam Table) Until Exam PATIENT GENDER DATA: Female. status: : No status: NO. PATIENT RELEVANT IMPLANT DATA REVIEWED: Not Applicable RADIOLOGY DEPARTMENT: General X-ray: Exam(s) Completed: Chest X-Ray PERIPHERAL IV DATA: Not applicable SIGNED BY: RT Marycarmen(R) October 09, 2021 12:06 PM documented in this encounter [facility] 09-03-2021 History of Present illness Narrative Radiology Service Progress Note PATIENT NAME: Ramona Mike DATE OF SERVICE: September 03, 2021 TIME: 3:16 PM PATIENT IDENTITY VERIFICATION COMPLETED USING TWO [...] IMPLANT DATA REVIEWED: Not Applicable RADIOLOGY DEPARTMENT: General X-ray: Exam(s) Completed: Chest X-Ray PERIPHERAL IV DATA: Not applicable SIGNED BY: RT Marycarmen(R) September 03, 2021 3:16 PM documented in this encounter [facility] 04-13-2020 History of Past i llness Narrative Problem Noted Date Resolved Date Postoperative pain 04/13/2020 04/19/2020 Normal pressure hydrocephalus 10/13/2019 Symptomatic menopausal or female climacteric sta eulalia 08/21/2008 07/23/2010 documented as of this encounter (statuses as of 01/06/2022) [facility] History of Past illness Narrative* Problem Noted Date Resolved Date Postoperative pain 04/13/2020 04/19/2020 Normal pressure hydrocephalus 10/13/2019 Symptomatic menopausal or female climacteric sta eulalia 08/21/2008 07/23/2010 documented as of this encounter (statuses as of 01/22/2022) [facility] History of Past illness Narrative* Problem Noted Date Resolved Date Postoperative pain 04/13/2020 04/19/2020 Normal pressure hydrocephalus 10/13/2019 Symptomatic menopausal or female climacteric sta eulalia 08/21/2008 07/23/2010 documented as of this encounter (statuses as of 02/20/2022) [facility] History of Past illness Narrative* Problem Noted Date Resolved Date Postoperative pain 04/13/2020 04/19/2020 Normal pressure hydrocephalus 10/13/2019 Symptomatic menopausal or female climacteric sta eulalia 08/21/2008 07/23/2010 documented as of this encounter (statuses as of 02/21/2022) [facility] History of Past illness Narrative* Problem Noted Date Resolved Date Postoperative pain 04/13/2020 04/19/2020 Normal pressure hydrocephalus 10/13/2019 Symptomatic menopausal or female climacteric sta eulalia 08/21/2008 07/23/2010 documented as of this encounter (statuses as of 02/24/2022) [facility] History of Past illness Narrative* Problem Noted Date Resolved Date Postoperative pain 04/13/2020 04/19/2020 Normal pressure hydrocephalus 10/13/2019 Symptomatic menopausal or female climacteric sta eulalia 08/21/2008 07/23/2010 documented as of this encounter (statuses as of 02/25/2022) [facility] History of Past illness Narrative* Problem Noted Date Resolved Date Postoperative pain 04/13/2020 04/19/2020 Normal pressure hydrocephalus 10/13/2019 Symptomatic menopausal or female climacteric sta eulalia 08/21/2008 07/23/2010 documented as of this encounter (statuses as of 02/26/2022) [facility] History of Past illness Narrative* Problem Noted Date Resolved Date Postoperative pain 04/13/2020 04/19/2020 Normal pressure hydrocephalus 10/13/2019 Symptomatic menopausal or female climacteric sta eulalia 08/21/2008 07/23/2010 documented as of this encounter (statuses as of 02/26/2022) [facility] History of Past illness Narrative* Problem Noted Date Resolved Date Postoperative pain 04/13/2020 04/19/2020 Normal pressure hydrocephalus 10/13/2019 Symptomatic menopausal or female climacteric sta eulalia 08/21/2008 07/23/2010 documented as of this encounter (statuses as of 02/28/2022) [facility] History of Past illness Narrative* Problem Noted Date Resolved Date Postoperative pain 04/13/2020 04/19/2020 Normal pressure hydrocephalus 10/13/2019 Symptomatic menopausal or female climacteric sta eulalia 08/21/2008 07/23/2010 documented as of this encounter (statuses as of 03/03/2022) [address]-2020 History of Past illness Narrative* Problem Noted Date Resolved Date Postoperative pain 04/13/2020 04/19/2020 Normal pressure hydrocephalus 10/13/2019 Symptomatic menopausal or female climacteric sta eulalia 08/21/2008 07/23/2010 documented as of this encounter (statuses as of 03/03/2022) [facility] History of Past illness Narrative* Problem Noted Date Resolved Date Postoperative pain 04/13/2020 04/19/2020 Normal pressure hydrocephalus 10/13/2019 Symptomatic menopausal or female climacteric sta eulalia 08/21/2008 07/23/2010 documented as of this encounter (statuses as of 03/06/2022) [facility] History of Past illness Narrative* Problem Noted Date Resolved Date Postoperative pain 04/13/2020 04/19/2020 Normal pressure hydrocephalus 10/13/2019 Symptomatic menopausal or female climacteric sta eulalia 08/21/2008 07/23/2010 documented as of this encounter (statuses as of 03/06/2022) [address]-2020 History of Past illness Narrative* Problem Noted Date Resolved Date Postoperative pain 04/13/2020 04/19/2020 Normal pressure hydrocephalus 10/13/2019 Symptomatic menopausal or female climacteric sta eulalia 08/21/2008 07/23/2010 documented as of this encounter (statuses as of 03/06/2022) [facility] History of Past illness Narrative* Problem Noted Date Resolved Date Postoperative pain 04/13/2020 04/19/2020 Normal pressure hydrocephalus 10/13/2019 Symptomatic menopausal or female climacteric sta eulalia 08/21/2008 07/23/2010 documented as of this encounter (statuses as of 05/26/2022) [facility] History of Past illness Narrative* Problem Noted Date Resolved Date Postoperative pain 04/13/2020 04/19/2020 Normal pressure hydrocephalus 10/13/2019 Symptomatic menopausal or female climacteric sta eulalia 08/21/2008 07/23/2010 documented as of this encounter (statuses as of 06/07/2022) [facility] History of Past illness Narrative* Problem Noted Date Resolved Date Postoperative pain 04/13/2020 04/19/2020 Normal pressure hydrocephalus 10/13/2019 Symptomatic menopausal or female climacteric sta eulalia 08/21/2008 07/23/2010 documented as of this encounter (statuses as of 07/16/2022) [address]-2020 History of Past illness Narrative* Problem Noted Date Resolved Date Postoperative pain 04/13/2020 04/19/2020 Normal pressure hydrocephalus 10/13/2019 Symptomatic menopausal or female climacteric sta eulalia 08/21/2008 07/23/2010 documented as of this encounter (statuses as of 07/22/2022) [address]07-2020 History of Past illness Narrative* Problem Noted Date Resolved Date Postoperative pain 04/13/2020 04/19/2020 Normal pressure hydrocephalus 10/13/2019 Symptomatic menopausal or female climacteric sta eulalia 08/21/2008 07/23/2010 documented as of this encounter (statuses as of 07/22/2022) [facility] History of Past illness Narrative* Problem Noted Date Resolved Date Postoperative pain 04/13/2020 04/19/2020 Normal pressure hydrocephalus 10/13/2019 Symptomatic menopausal or female climacteric sta eulalia 08/21/2008 07/23/2010 documented as of this encounter (statuses as of 07/30/2022) [facility] History of Past illness Narrative* Problem Noted Date Resolved Date Postoperative pain 04/13/2020 04/19/2020 Normal pressure hydrocephalus 10/13/2019 Symptomatic menopausal or female climacteric sta eulalia 08/21/2008 07/23/2010 documented as of this encounter (statuses as of 07/30/2022) [address]-2020 History of Past illness Narrative* Problem Noted Date Resolved Date Postoperative pain 04/13/2020 04/19/2020 Normal pressure hydrocephalus 10/13/2019 Symptomatic menopausal or female climacteric sta eulalia 08/21/2008 07/23/2010 documented as of this encounter (statuses as of 08/06/2022) [address]-2020 History of Past illness Narrative* Problem Noted Date Resolved Date Postoperative pain 04/13/2020 04/19/2020 Normal pressure hydrocephalus 10/13/2019 Symptomatic menopausal or female climacteric sta eulalia 08/21/2008 07/23/2010 documented as of this encounter (statuses as of 09/18/2022) [address]-2020 History of Past illness Narrative* Problem Noted Date Resolved Date Postoperative pain 04/13/2020 04/19/2020 Normal pressure hydrocephalus 10/13/2019 Symptomatic menopausal or female climacteric sta eulalia 08/21/2008 07/23/2010 documented as of this encounter (statuses as of 10/01/2022) [address]07-2020 History of Past illness Narrative* Problem Noted Date Resolved Date Postoperative pain 04/13/2020 04/19/2020 Normal pressure hydrocephalus 10/13/2019 Symptomatic menopausal or female climacteric sta eulalia 08/21/2008 07/23/2010 documented as of this encounter (statuses as of 10/03/2022) [address]07-2020 History of Past illness Narrative* Problem Noted Date Resolved Date Postoperative pain 04/13/2020 04/19/2020 Normal pressure hydrocephalus 10/13/2019 Symptomatic menopausal or female climacteric sta eulalia 08/21/2008 07/23/2010 documented as of this encounter (statuses as of 10/15/2022) [address]-2020 History of Past illness Narrative* Problem Noted Date Resolved Date Postoperative pain 04/13/2020 04/19/2020 Normal pressure hydrocephalus 10/13/2019 Symptomatic menopausal or female climacteric sta eulalia 08/21/2008 07/23/2010 documented as of this encounter (statuses as of 10/22/2022) [address]07-2020 History of Past illness Narrative* Problem Noted Date Resolved Date Postoperative pain 04/13/2020 04/19/2020 Normal pressure hydrocephalus 10/13/2019 Symptomatic menopausal or female climacteric sta eulalia 08/21/2008 07/23/2010 documented as of this encounter (statuses as of 10/27/2022) [address]-2020 History of Past illness Narrative* Problem Noted Date Resolved Date Postoperative pain 04/13/2020 04/19/2020 Normal pressure hydrocephalus 10/13/2019 Symptomatic menopausal or female climacteric sta eulalia 08/21/2008 07/23/2010 documented as of this encounter (statuses as of 12/26/2022) [facility] History of Past illness Narrative* Problem Noted Date Resolved Date Postoperative pain 04/13/2020 04/19/2020 Normal pressure hydrocephalus 10/13/2019 Symptomatic menopausal or female climacteric sta eulalia 08/21/2008 07/23/2010 documented as of this encounter (statuses as of 01/07/2023) [facility] History of Past illness Narrative* Problem Noted Date Resolved Date Postoperative pain 04/13/2020 04/19/2020 Normal pressure hydrocephalus 10/13/2019 Symptomatic menopausal or female climacteric sta eulalia 08/21/2008 07/23/2010 documented as of this encounter (statuses as of 01/14/2023) [address]-2020 History of Past illness Narrative* Problem Noted Date Resolved Date Postoperative pain 04/13/2020 04/19/2020 Normal pressure hydrocephalus 10/13/2019 Symptomatic menopausal or female climacteric sta eulalia 08/21/2008 07/23/2010 documented as of this encounter (statuses as of 01/14/2023) [facility] History of Past illness Narrative* Problem Noted Date Resolved Date Postoperative pain 04/13/2020 04/19/2020 Normal pressure hydrocephalus 10/13/2019 Symptomatic menopausal or female climacteric sta eulalia 08/21/2008 07/23/2010 documented as of this encounter (statuses as of 01/15/2023) [facility] History of Past illness Narrative* Problem Noted Date Resolved Date Postoperative pain 04/13/2020 04/19/2020 Normal pressure hydrocephalus 10/13/2019 Symptomatic menopausal or female climacteric sta eulalia 08/21/2008 07/23/2010 documented as of this encounter (statuses as of 01/16/2023) [facility] History of Past illness Narrative* Problem Noted Date Resolved Date Postoperative pain 04/13/2020 04/19/2020 Normal pressure hydrocephalus 10/13/2019 Symptomatic menopausal or female climacteric sta eulalia 08/21/2008 07/23/2010 documented as of this encounter (statuses as of 02/03/2023) [address]-2020 History of Past illness Narrative* Problem Noted Date Resolved Date Postoperative pain 04/13/2020 04/19/2020 Normal pressure hydrocephalus 10/13/2019 Symptomatic menopausal or female climacteric sta eulalia 08/21/2008 07/23/2010 documented as of this encounter (statuses as of 02/06/2023) [facility] History of Past illness Narrative* Problem Noted Date Resolved Date Postoperative pain 04/13/2020 04/19/2020 Normal pressure hydrocephalus 10/13/2019 Symptomatic menopausal or female climacteric sta eulalia 08/21/2008 07/23/2010 documented as of this encounter (statuses as of 02/06/2023) [facility] History of Past illness Narrative* Problem Noted Date Resolved Date Postoperative pain 04/13/2020 04/19/2020 Normal pressure hydrocephalus 10/13/2019 Symptomatic menopausal or female climacteric sta eulalia 08/21/2008 07/23/2010 documented as of this encounter (statuses as of 02/06/2023) [address]-2020 History of Past illness Narrative* Problem Noted Date Resolved Date Postoperative pain 04/13/2020 04/19/2020 Normal pressure hydrocephalus 10/13/2019 Symptomatic menopausal or female climacteric sta eulalia 08/21/2008 07/23/2010 documented as of this encounter (statuses as of 02/07/2023) [facility] History of Past illness Narrative* Problem Noted Date Diagnosed Date Resolved Date Postoperative pain 04/13/2020 0 Normal pressure hydrocephalus 10/13/2019 04/19/2020 Symptomatic menopausal or fe male climacteric states 08/21/2008 07/23/2010 documented as of this encounter (statuses as of 04/03/2023) [address]07-2020 History of Past illness Narrative* Problem Noted Date Diagnosed Date Resolved Date Postoperative pain 04/13/2020 0 Normal pressure hydrocephalus 10/13/2019 04/19/2020 Symptomatic menopausal or fe male climacteric states 08/21/2008 07/23/2010 documented as of this encounter (statuses as of 04/18/2023) [address]-2020 History of Past illness Narrative* Problem Noted Date Diagnosed Date Resolved Date Postoperative pain 04/13/2020 0 Normal pressure hydrocephalus 10/13/2019 04/19/2020 Symptomatic menopausal or fe male climacteric states 08/21/2008 07/23/2010 documented as of this encounter (statuses as of 04/22/2023) [facility] History of Past illness Narrative* Problem Noted Date Diagnosed Date Resolved Date Postoperative pain 04/13/2020 0 Normal pressure hydrocephalus 10/13/2019 04/19/2020 Symptomatic menopausal or fe male climacteric states 08/21/2008 07/23/2010 documented as of this encounter (statuses as of 05/07/2023) [facility] noteNo assessment information availableWOhio[facility] Work Phone: Evaluation note* Diagnosis Depressive disorder Depressive disorder, not elsewhere classified Vascular parkinsonism (HCC) Paralysis agitans [facility]* Diagnosis Controlled type 2 diabetes mellitus without complication, without long-term current use of insulin ([facility])- Primary Hyperlipidemia, unspecified hyperlipidemia type Depressive disorder Depressive disorder, not elsewhere classified Essential hypertension, benign Memory difficulties Memory loss Female stress incontinence [facility]* Diagnosis Onset Date Resolution Status Dizziness acute History of diabetes mellitus acute History of hydrocephalus acu te Orthostatic hypotension acut e Unable to ambulate [facility] Work Phone: Evaluation note* Diagnosis Onset Date Resolution Status Dehydration acute Dizziness acute Orthostatic hypotension acut e Unable to ambulate [facility] Work Phone: Evaluation note* Diagnosis S/P PASTER SUPERVISOR shunt- Primary Presence of cerebrospinal fluid drainage device Other hydrocephalus (HCC) [facility]* Diagnosis Hospital discharge follow-up- Primary Other follow-up examination Orthostatic hypertension Nausea and vomiting, unspecified vomiting type Cervical spondylosis Cervical spondylosis without myelopathy Neural foraminal stenosis of cervical spine Spinal stenosis in cervical region Bilateral hand numbness Disturbance of skin sensation Vascular parkinsonism (HCC) Paralysis agitans [facility]* Diagnosis NPH (normal pressure hydrocephalus) (HCC)- Primary Idiopathic normal pressure hydrocephalus ([facility]) Dehydration Adverse effects of medication, initial encounter [facility]* Diagnosis Other hydrocephalus (HCC) [facility]* Diagnosis Major neurocognitive disorder (HCC)- Primary Unspecified persistent mental disorders due to conditions classified elsewhere NPH (normal pressure hydrocephalus) (HCC) Idiopathic normal pressure hydrocephalus ([facility]) Controlled type 2 diabetes mellitus without complication, without long-term current use of insulin (HCC) Depression, unspecified depression type [facility]* Diagnosis Hyperlipidemia, unspecified hyperlipidemia type- Primary Essential hypertension, benign Female stress incontinence Controlled type 2 diabetes mellitus without complication, without long-term current use of insulin (HCC) Depressive disorder Depressive disorder, not elsewhere classified NPH (normal pressure hydrocephalus) (HCC) Idiopathic normal pressure hydrocephalus ([facility]) Dementia without behavioral disturbance, psychotic disturbance, mood disturbance, or anxiety, unspecified dementia severity, unspecified dementia type ([facility]) [facility]* Diagnosis Encounter for gynecological examination (general) (routine) without abnormal findings- Primary Encounter for screening for osteoporosis Special screening for osteoporosis Unspecified menopausal and perimenopausal disorder [facility]* Diagnosis Female stress incontinence- Primary [facility] Diagnosis Female stress incontinence [facility]* Diagnosis Controlled type 2 diabetes mellitus without complication, without long-term current use of insulin (HCC) [facility]* Diagnosis 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)- Primary Other persistent mental disorders due to conditions classified elsewhere [facility]* Diagnosis Female stress incontinence- Primary [facility]* Diagnosis Urine retention- Primary Retention of urine, unspecified Mixed stress and urge urinary incontinence Mixed incontinence urge and stress (male)(female) Vascular parkinsonism (HCC) Paralysis agitans documented [facility] Diagnosis Female stress incontinence [facility] Diagnosis Depressive disorder Depressive disorder, not elsewhere classified [facility] Diagnosis Controlled type 2 diabetes mellitus without complication, without long-term current use of insulin (HCC) documented [facility]* Diagnosis Other hydrocephalus (HCC)- Primary [facility]* Diagnosis 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)- Primary Other persistent mental disorders due to conditions classified elsewhere NPH (normal pressure hydrocephalus) (HCC) Idiopathic normal pressure hydrocephalus (INPH) 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, recurrent, in partial remission (HCC) Major depressive disorder, recurrent episode, in partial or unspecified remission Female stress incontinence documented [facility]* Diagnosis Other hydrocephalus (HCC) documented in this encounter [facility] note* Diagnosis Controlled type 2 diabetes mellitus without complication, without long-term current use of insulin (HCC) documented [facility] Diagnosis Cervical spondylosis Cervical spondylosis without myelopathy Neural foraminal stenosis of cervical spine Spinal stenosis in cervical region Bilateral hand numbness Disturbance of skin sensation documented in this encounter [facility] note* Diagnosis 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 behavioral disturbance ([facility])- Primary Other persistent mental disorders due to conditions classified elsewhere Controlled type 2 diabetes mellitus without complication, without long-term current use of insulin (HCC) Balance problem Other symptoms involving nervous and musculoskeletal systems Hyperlipidemia, unspecified hyperlipidemia type Chronic constipation Unspecified constipation Female stress incontinence Cervical spondylosis Cervical spondylosis without myelopathy Depressive disorder Depressive disorder, not elsewhere classified documented in this encounter [facility] note* Diagnosis Diabetes mellitus type 2, controlled, without complications (HCC) Type II or unspecified type diabetes mellitus without mention of complication, not stated as uncontrolled Hyperlipidemia Other and unspecified hyperlipidemia Depressive disorder Depressive disorder, not elsewhere classified NPH (normal pressure hydrocephalus) ([facility])- Primary Idiopathic normal pressure hydrocephalus (INPH) Postoperative pain Other acute postoperative pain NPH (normal pressure hydrocephalus) (HCC) Idiopathic normal pressure hydrocephalus (INPH) Obesity, Class I, BMI 30-34.9 Obesity, unspecified COVID-19 History of pneumonia Personal history of pneumonia (recurrent) documented [facility]* Diagnosis Diabetes mellitus type 2, controlled, without complications (HCC) Type II or unspecified type diabetes mellitus without mention of complication, not stated as uncontrolled Hyperlipidemia Other and unspecified hyperlipidemia Depressive disorder Depressive disorder, not elsewhere classified NPH (normal pressure hydrocephalus) (HCC)- Primary Idiopathic normal pressure hydrocephalus (INPH) Postoperative pain Other acute postoperative pain NPH (normal pressure hydrocephalus) (HCC) Idiopathic normal pressure hydrocephalus (INPH) Obesity, Class I, BMI 30-34.9 Obesity, unspecified Cough [facility] Phone: Reason for referral (narrative)* Diagnostic Procedure Only (Routine) - Authorized Specialty Diagnoses / Procedures Referred By Keysha t Referred To Contact US IMAGING Diagnoses Mixed stress and urge urinary incontinence Urine retention Procedures US KIDNEY/BLADDER US RETROPERITONEAL REAL TIME W/IMAGE COMPLETE Cristine Puri, MANUFACTURING MANAGEMENT ASSOCIATE [address] [place] [address] Us Imaging Referral ID Status Reason Start Date Expiration Date Visits Requested Visits Authorized [id number] Authorized Auto-Generat ed Referral 01/07/2023 02/06/2024 1 1 [facility] ([facility]arrative)No reason for referral information availableWOhioHealth [facility] Work Phone: Chief Complaint and Reason for Visit Chief Complaint SCREENING GENERAL ILLNESS COVID POS Chief Complaint LIGHTHEADNESS Reason for Visit Dizziness History of diabetes mellitus History of hydrocephalus Orthostatic hypotension Unable to ambulate Chief Complaint LIGHTHEADNESS LIGHTHEADNESS LIGHTHEADNESS LIGHTHEADNESS Reason for Visit Dehydration Dizziness Orthostatic hypotension Unable to ambulate Chief Complaint CUSTODIAL LAB WOR K LABWORK Chief Complaint CUSTODIAL LAB WOR K NEW CONCERN LABWORK CUSTODIAL LABWORK Chief Complaint NEW CONCERN LABWORK CUSTODIAL LABWORK CUSTODIAL LAB WORK Chief Complaint CUSTODIAL LABWORK NEW CONCERN CUSTODIAL LAB WORK LABWORK Chief Complaint Admit Date CUSTODIAL LAB WORK November 02 5:00am Chief Complaint Admit Date CUSTODIAL LAB WORK November 02 5:00am CUSTODIAL LAB WORK January 31, 2025 5:0 0am NEW CONCERN February 01, 2025 11:53 am Chief Complaint Admit Date CUSTODIAL LAB WORK January 31, 2025 5:0 0am NEW CONCERN February 01, 2025 11:53 am New Concern February 16, 2025 4:05 pm Chief Complaint Admit Date CUSTODIAL LAB WORK January 31, 2025 5:0 0am NEW CONCERN February 01, 2025 11:53 am New Concern February 16, 2025 4:05 pm NEW CONCERN April 10, 2025 3:4 9pm Advance Directives Advance Directive Response Recorded Date/ Time Living Will Yes September 04, 021 1:55pm Power of Dermatologist And Dermatopathologist Yes September 04, 2021 1:55pm Documents on File Type Date Recorded Patient Bath Attendant Expl anation Advance Directive(s) 03/20/2020 4:10 PM Advance Directive(s) 03/20/2020 4:11 PM Advance Directive(s) 03/02/2020 3:38 PM Advance Directive(s) 02/15/2020 3:49 PM Advance Directive(s) 01/27/2020 10:30 AM Advance Directive(s) 11/25/2019 1:12 PM Advance Directive Response Recorded Date/ Time Living Will Yes February 21, 2022 6:00pm Power of Dermatologist And Dermatopathologist Yes February 21 6:00pm Name of Medical Power of Dermatologist And Dermatopathologist roselyn reyes off-daughter February 21, 2022 6:00pm Advance Directive Response Recorded Date/ Time Name of Medical Power of Dermatologist And Dermatopathologist Roselyn Reyes off February 21, 2022 11:13pm Living Will Yes February 21, 2022 11:13pm Power of Dermatologist And Dermatopathologist Yes February 21 11:13pm Documents on File Type Date Recorded Patient Bath Attendant Expl anation Advance Directive(s) 03/20/2020 4:10 PM Advance Directive(s) 03/20/2020 4:11 PM Advance Directive(s) 03/02/2020 3:38 PM Advance Directive(s) 02/15/2020 3:49 PM Advance Directive(s) 01/27/2020 10:30 AM Advance Directive(s) 11/25/2019 1:12 PM Documents on File Type Date Recorded Patient Bath Attendant Expl anation Advance Directive(s) 03/20/2020 4:11 PM Documents on File Type Date Recorded Patient Bath Attendant Expl anation Advance Directive(s) 03/20/2020 4:11 PM Advance Directive Response Recorded Date/ Time Living Will No July 22 11:42pm Power of Dermatologist And Dermatopathologist No July 22, 2022 11:42pm Advance Directive Response Recorded Date/ Time Living Will No July 22 10:42pm Power of Dermatologist And Dermatopathologist No July 22, 2022 10:42pm Reason for Referral Specialty Diagnoses / Procedures Referred By Contac t Referred To Contact CT IMAGING Diagnoses Other hydrocephalus (HCC) S/P PASTER SUPERVISOR shunt Procedures CT BRAIN WO IVCON CT HEAD/BRAIN W/O CONTRAST MATERIAL Orestes Hernandez PA-C [address] [place] [address] Ct Imaging Referral ID Status Reason Start Date Expiration Date Visits Requested Visits Authorized [id number] Pending Review Auto-Generat ed Referral 02/26/2022 03/28/2023 1 1 Specialty Diagnoses / Procedures Referred By Contac t Referred To Contact CT IMAGING Diagnoses Other hydrocephalus (HCC) Procedures CT BRAIN WO IVCON CT HEAD/BRAIN W/O CONTRAST MATERIAL Ramírez Leavitt PA-C [address] [place] [address] Ct Imaging Referral ID Status Reason Start Date Expiration Date Visits Requested Visits Authorized [id number] Pending Review Auto-Generat ed Referral 03/06/2022 04/05/2023 1 1 Specialty Diagnoses / Procedures Referred By Contac t Referred To Contact Urology Diagnoses Female stress incontinence Procedures CONSULT TO UROLOGY OFFICE/OUTPATIENT [facility] 60-74 MINUTES Harsh Mcnair MD [address] [place] [address] Referral ID Status Reason Start Date Expiration Date Visits Requested Visits Authorized [id number] Authorized PCP Requested Referral 12/25/2022 12/25/2023 1 1 Referral ID Status Reason Start Date Expiration Date Visits Requested Visits Authorized [id number] Pending Review Auto-Generat ed Referral 02/05/2023 03/06/2024 1 1 Referral ID Status Reason Start Date Expiration Date V isits Requested Visits Authorized [id number] Closed Auto-Generate d Referral 03/06/2022 04/05/2023 1 1 Summary Purpose Family History No Family History Records Found Additional Source Comments Goals (unrecognized section and content) Goals may be documented in a n alternate sectionGoals may be documented in an alternate sectionGoals may be documented in an alternate sectionGoals may be documented in an alternate sectionGoals may be documented in an alternate sectionGoals may be documented in an alternate sectionGoals may be documented in an alternate sectionGoals may be documented in an alternate sectionGoals may be documented in an alternate sectionGoals may be documented in an alternate section Source Comments (unrecognize d section and content) In the event this informatio n is protected by the Federal Confidentiality of Alcohol and Drug Abuse Patient Records regulations: The Federal rules restrict any use of the information to criminally investigate or prosecute any alcohol or drug abuse patient.[facility] the event this information is protected by the Federal Confidentiality of Alcohol and Drug Abuse Patient Records regulations: The Federal rules restrict any use of the information to criminally investigate or prosecute any alcohol or drug abuse patient.[facility]In the event this information is protected by the Federal Confidentiality of Alcohol and Drug Abuse Patient Records regulations: The Federal rules restrict any use of the information to criminally investigate or prosecute any alcohol or drug abuse patient.[facility]In the event this information is protected by the Federal Confidentiality of Alcohol and Drug Abuse Patient Records regulations: The Federal rules restrict any use of the information to criminally investigate or prosecute any alcohol or drug abuse patient.[facility] HospitalIn the event this information is protected by the Federal Confidentiality of Alcohol and Drug Abuse Patient Records regulations: The Federal rules restrict any use of the information to criminally investigate or prosecute any alcohol or drug abuse patient.[facility]In the event this information is protected by the Federal Confidentiality of Alcohol and Drug Abuse Patient Records regulations: The Federal rules restrict any use of the information to criminally investigate or prosecute any alcohol or drug abuse patient.[facility]In the event this information is protected by the Federal Confidentiality of Alcohol and Drug Abuse Patient Records regulations: The Federal rules restrict any use of the information to criminally investigate or prosecute any alcohol or drug abuse patient.[facility] HospitalIn the event this information is protected by the Federal Confidentiality of Alcohol and Drug Abuse Patient Records regulations: The Federal rules restrict any use of the information to criminally investigate or prosecute any alcohol or drug abuse patient.[facility]In the event this information is protected by the Federal Confidentiality of Alcohol and Drug Abuse Patient Records regulations: The Federal rules restrict any use of the information to criminally investigate or prosecute any alcohol or drug abuse patient.[facility] HospitalIn the event this information is protected by the Federal Confidentiality of Alcohol and Drug Abuse Patient Records regulations: The Federal rules restrict any use of the information to criminally investigate or prosecute any alcohol or drug abuse patient.[facility] HospitalIn the event this information is protected by the Federal Confidentiality of Alcohol and Drug Abuse Patient Records regulations: The Federal rules restrict any use of the information to criminally investigate or prosecute any alcohol or drug abuse patient.[facility] HospitalIn the event this information is protected by the Federal Confidentiality of Alcohol and Drug Abuse Patient Records regulations: The Federal rules restrict any use of the information to criminally investigate or prosecute any alcohol or drug abuse patient.[facility] HospitalIn the event this information is protected by the Federal Confidentiality of Alcohol and Drug Abuse Patient Records regulations: The Federal rules restrict any use of the information to criminally investigate or prosecute any alcohol or drug abuse patient.[facility] HospitalIn the event this information is protected by the Federal Confidentiality of Alcohol and Drug Abuse Patient Records regulations: The Federal rules restrict any use of the information to criminally investigate or prosecute any alcohol or drug abuse patient.[facility] HospitalIn the event this information is protected by the Federal Confidentiality of Alcohol and Drug Abuse Patient Records regulations: The Federal rules restrict any use of the information to criminally investigate or prosecute any alcohol or drug abuse patient.[facility] HospitalIn the event this information is protected by the Federal Confidentiality of Alcohol and Drug Abuse Patient Records regulations: The Federal rules restrict any use of the information to criminally investigate or prosecute any alcohol or drug abuse patient.[facility] HospitalIn the event this information is protected by the Federal Confidentiality of Alcohol and Drug Abuse Patient Records regulations: The Federal rules restrict any use of the information to criminally investigate or prosecute any alcohol or drug abuse patient.[facility] HospitalIn the event this information is protected by the Federal Confidentiality of Alcohol and Drug Abuse Patient Records regulations: The Federal rules restrict any use of the information to criminally investigate or prosecute any alcohol or drug abuse patient.[facility] HospitalIn the event this information is protected by the Federal Confidentiality of Alcohol and Drug Abuse Patient Records regulations: The Federal rules restrict any use of the information to criminally investigate or prosecute any alcohol or drug abuse patient.[facility] HospitalIn the event this information is protected by the Federal Confidentiality of Alcohol and Drug Abuse Patient Records regulations: The Federal rules restrict any use of the information to criminally investigate or prosecute any alcohol or drug abuse patient.[facility] HospitalIn the event this information is protected by the Federal Confidentiality of Alcohol and Drug Abuse Patient Records regulations: The Federal rules restrict any use of the information to criminally investigate or prosecute any alcohol or drug abuse patient.[facility] HospitalIn the event this information is protected by the Federal Confidentiality of Alcohol and Drug Abuse Patient Records regulations: The Federal rules restrict any use of the information to criminally investigate or prosecute any alcohol or drug abuse patient.[facility] HospitalIn the event this information is protected by the Federal Confidentiality of Alcohol and Drug Abuse Patient Records regulations: The Federal rules restrict any use of the information to criminally investigate or prosecute any alcohol or drug abuse patient.[facility] the event this information is protected by the Federal Confidentiality of Alcohol and Drug Abuse Patient Records regulations: The Federal rules restrict any use of the information to criminally investigate or prosecute any alcohol or drug abuse patient.[facility]In the event this information is protected by the Federal Confidentiality of Alcohol and Drug Abuse Patient Records regulations: The Federal rules restrict any use of the information to criminally investigate or prosecute any alcohol or drug abuse patient.[facility]In the event this information is protected by the Federal Confidentiality of Alcohol and Drug Abuse Patient Records regulations: The Federal rules restrict any use of the information to criminally investigate or prosecute any alcohol or drug abuse patient.[facility] HospitalIn the event this information is protected by the Federal Confidentiality of Alcohol and Drug Abuse Patient Records regulations: The Federal rules restrict any use of the information to criminally investigate or prosecute any alcohol or drug abuse patient.[facility]In the event this information is protected by the Federal Confidentiality of Alcohol and Drug Abuse Patient Records regulations: The Federal rules restrict any use of the information to criminally investigate or prosecute any alcohol or drug abuse patient.[facility] HospitalIn the event this information is protected by the Federal Confidentiality of Alcohol and Drug Abuse Patient Records regulations: The Federal rules restrict any use of the information to criminally investigate or prosecute any alcohol or drug abuse patient.[facility] HospitalIn the event this information is protected by the Federal Confidentiality of Alcohol and Drug Abuse Patient Records regulations: The Federal rules restrict any use of the information to criminally investigate or prosecute any alcohol or drug abuse patient.[facility] HospitalIn the event this information is protected by the Federal Confidentiality of Alcohol and Drug Abuse Patient Records regulations: The Federal rules restrict any use of the information to criminally investigate or prosecute any alcohol or drug abuse patient.[facility] HospitalIn the event this information is protected by the Federal Confidentiality of Alcohol and Drug Abuse Patient Records regulations: The Federal rules restrict any use of the information to criminally investigate or prosecute any alcohol or drug abuse patient.[facility] HospitalIn the event this information is protected by the Federal Confidentiality of Alcohol and Drug Abuse Patient Records regulations: The Federal rules restrict any use of the information to criminally investigate or prosecute any alcohol or drug abuse patient.[facility] HospitalIn the event this information is protected by the Federal Confidentiality of Alcohol and Drug Abuse Patient Records regulations: The Federal rules restrict any use of the information to criminally investigate or prosecute any alcohol or drug abuse patient.[facility] HospitalIn the event this information is protected by the Federal Confidentiality of Alcohol and Drug Abuse Patient Records regulations: The Federal rules restrict any use of the information to criminally investigate or prosecute any alcohol or drug abuse patient.[facility]In the event this information is protected by the Federal Confidentiality of Alcohol and Drug Abuse Patient Records regulations: The Federal rules restrict any use of the information to criminally investigate or prosecute any alcohol or drug abuse patient.[facility]In the event this information is protected by the Federal Confidentiality of Alcohol and Drug Abuse Patient Records regulations: The Federal rules restrict any use of the information to criminally investigate or prosecute any alcohol or drug abuse patient.[facility] HospitalIn the event this information is protected by the Federal Confidentiality of Alcohol and Drug Abuse Patient Records regulations: The Federal rules restrict any use of the information to criminally investigate or prosecute any alcohol or drug abuse patient.[facility] HospitalIn the event this information is protected by the Federal Confidentiality of Alcohol and Drug Abuse Patient Records regulations: The Federal rules restrict any use of the information to criminally investigate or prosecute any alcohol or drug abuse patient.[facility] HospitalIn the event this information is protected by the Federal Confidentiality of Alcohol and Drug Abuse Patient Records regulations: The Federal rules restrict any use of the information to criminally investigate or prosecute any alcohol or drug abuse patient.[facility] HospitalIn the event this information is protected by the Federal Confidentiality of Alcohol and Drug Abuse Patient Records regulations: The Federal rules restrict any use of the information to criminally investigate or prosecute any alcohol or drug abuse patient.[facility] HospitalIn the event this information is protected by the Federal Confidentiality of Alcohol and Drug Abuse Patient Records regulations: The Federal rules restrict any use of the information to criminally investigate or prosecute any alcohol or drug abuse patient.[facility] HospitalIn the event this information is protected by the Federal Confidentiality of Alcohol and Drug Abuse Patient Records regulations: The Federal rules restrict any use of the information to criminally investigate or prosecute any alcohol or drug abuse patient.[facility] HospitalIn the event this information is protected by the Federal Confidentiality of Alcohol and Drug Abuse Patient Records regulations: The Federal rules restrict any use of the information to criminally investigate or prosecute any alcohol or drug abuse patient.[facility] HospitalIn the event this information is protected by the Federal Confidentiality of Alcohol and Drug Abuse Patient Records regulations: The Federal rules restrict any use of the information to criminally investigate or prosecute any alcohol or drug abuse patient.[facility] HospitalIn the event this information is protected by the Federal Confidentiality of Alcohol and Drug Abuse Patient Records regulations: The Federal rules restrict any use of the information to criminally investigate or prosecute any alcohol or drug abuse patient.[facility] HospitalIn the event this information is protected by the Federal Confidentiality of Alcohol and Drug Abuse Patient Records regulations: The Federal rules restrict any use of the information to criminally investigate or prosecute any alcohol or drug abuse patient.[facility] Reason for Visit (unrecogniz ed section and content) Reason Onset Date Comments Refill Request 01/06/2022 Reason Comments F/U 6 Month Reason Comments [...] inence Specialty Diagnoses / Procedures Referred By Keysha t Referred To Contact Urology Diagnoses Female stress incontinence Procedures CONSULT TO UROLOGY OFFICE/OUTPATIENT NEW HIGH MDM 60-74 MINUTES Harsh Mcnair MD [address] [place] [address] Referral ID Status Reason Start Date Expiration Date V isits Requested Visits Authorized [id number] Closed PCP Requested Referral 12/25/2022 12/25/2023 1 1 Reason Comments Refill Request Reason Comments Patient Question Reason Onset Date Comments Refill Request 01/15/[address] Specialty Diagnoses / Procedures Referred By Keysha t Referred To Contact CT IMAGING Diagnoses Other hydrocephalus (HCC) Procedures CT BRAIN WO IVCON CT HEAD/BRAIN W/O CONTRAST MATERIAL Ramírez Leavitt PA-C [address] [place] [address] Ct Imaging Referral ID Status Reason Start Date Expiration Date V isits Requested Visits Authorized [id number] Closed Auto-Generate d Referral 03/06/2022 04/05/2023 1 1 Reason Comments Medication Problem Reason Onset Date Comments Refill Request 04/02/2023 Reason Comments [facility] Reason Comments medication quesitons Reason Comments Forms [employer]-CPAP suppl ies Care Teams (unrecognized sec tion and content) Head Mixer Relationship Specialty Start Date End Date Harsh Mcnair MD [address] [place] [address] PCP - General 07/16/09 Head Mixer Relationship Specialty [place] [address] [place] [id number] PCP - General 07/16/09 Head Mixer Relationship Specialty Start Date End Date Harsh Mcnair MD [address] [place] [address] PCP - General 07/16/09 Head Mixer Relationship Specialty Start Date End Date Harsh Mcnair MD [address] [place] [address] PCP - General 07/16/09 Head Mixer Relationship Specialty Start Date End Date Harsh Mcnair MD [address] [place] [address] PCP - General 07/16/09 Head Mixer Relationship Specialty Start Date End Date Harsh Mcnair MD [address] [place] [address] PCP - General 07/16/09 Head Mixer Relationship Specialty Start Date End Date Harsh Mcnair MD [address] [place] [address] PCP - General 07/16/09 Head Mixer Relationship Specialty Start Date End Date Harsh Mcnair MD [address] [place] [address] PCP - General 07/16/09 Head Mixer Relationship Specialty Start Date End Date Harsh Mcnair MD [address] [place] [address] PCP - General 07/16/09 Head Mixer Relationship Specialty [place] [address] [place] [address], [place] [address] PCP - General 07/16/09 Head Mixer Relationship Specialty Start Date End Date Harsh Mcnair MD [address] [place] [address] [place] [address] PCP - General 07/16/09 Head Mixer Relationship Specialty Start Date End Date Harsh Mcnair MD [address] [place] [address] [place] [address] PCP - General 07/16/09 Head Mixer Relationship Specialty Start Date End Date Harsh Mcnair MD [facility] [place] [address] PCP - General 07/16/09 Head Mixer Relationship Specialty Start Date End Date Harsh Mcnair MD [address] [place] [address] [place] [address] PCP - General 07/16/09 Head Mixer Relationship Specialty Start Date End Date Harsh Mcnair MD [facility] [place] [address] PCP - General 07/16/09 Head Mixer Relationship Specialty Start Date End Date Harsh Mcnair MD [address] [place] [address], [place] [address] PCP - General 07/16/09 Head Mixer Relationship Specialty Start Date End Date Harsh Mcnair MD [address] [place] [address] PCP - General 07/16/09 Head Mixer Relationship Specialty Start Date End Date Harsh Mcnair MD [address] [place] [address] PCP - General 07/16/09 Head Mixer Relationship Specialty Start Date End Date Harsh Mcnair MD [address] [place] [address] PCP - General 07/16/09 Head Mixer Relationship Specialty Start Date End Date Harsh Mcnair MD [address] [place] [address] PCP - General 07/16/09 Head Mixer Relationship Specialty Start Date End Date Harsh Mcnair MD [address] [place] [address] PCP - General 07/16/09 Head Mixer Relationship Specialty Start Date End Date Harsh Mcnair MD [address] [place] [address] PCP - General 07/16/09 Head Mixer Relationship Specialty Start Date End Date Harsh Mcnair MD [address] [place] [address] PCP - General 07/16/09 Head Mixer Relationship Specialty Start Date End Date Harsh Mcnair MD [address] [place] [address] PCP - General 07/16/09 Head Mixer Relationship Specialty Start Date End Date Harsh Mcnair MD [address] [place] [address] PCP - General 07/16/09 Head Mixer Relationship Specialty Start Date End Date Harsh Mcnair MD [address] [place], [place] [address] PCP - General 07/16/09 Head Mixer Relationship Specialty Start Date End Date Harsh Mcnair MD [address] [place], [place] [address] PCP - General 07/16/09 Team Status: Active Member Role Status Dates Dr. Harsh Mcnair MD Family Provider Active Dr. Harsh Mcnair MD Primary Care Provider Active Team Status: Inactive Member Role Status Dates Dr. Harsh Mcnair MD Primary Care Provider Active Manpreet DICKINSON MD Attending Provider Active Team Status: Inactive Member Role Status Dates Dr. Harsh Mcnair MD Primary Care Provider Active Kathya Underwood SAND CUTTER OPERATOR, SAND CUTTER OPERATOR-C Attending Provider Active Team Status: Inactive Member Role Status Dates Dr. Harsh Mcnair MD Primary Care Provider Active Manpreet DICKINSON MD Attending Provider, Referring Provider Active Head Mixer Relationship Specialty Start Date End Date Harsh Mcnair MD [address] [place] [address] PCP - General 07/16/09 01/14/24 Manpreet Ivy [address] [place] [address] PCP - General 01/15/24 Head Mixer Relationship Specialty Start Date End Date Harsh Mcnair MD [address] [place], [place] [address] PCP - General 07/16/09 01/14/24 Head Mixer Relationship Specialty Start Date End Date Harsh Mcnair MD [address] [place], [place] [address] PCP - General 07/16/09 01/14/24 Team Status: Inactive Member Role Status Dates Dr. Harsh Mcnair MD Primary Care Provider Active Start: November 02, 2024 End: November 02, 2024 Manpreet DICKINSON MD Attending Provider Active Start: November 02, 2024 End: November 02, 2024 Team Status: Active Member Role Status Dates Dr. Harsh Mcnair MD Primary Care Provider Active Start: January 31, 2025 Manprete DICKINSON MD Attending Provider Active Start: January 31, 2025 Team Status: Inactive Member Role Status Dates Dr. Harsh Mcnair MD Primary Care Provider Active Start: February 01, 2025 End: February 01, 2025 Kathya Underwood SAND CUTTER OPERATOR, SAND CUTTER OPERATOR-C Attending Provider Active Start: February 01, 2025 End: February 01, 2025 Team Status: Active Member Role/Relationship Status Dates Dr. Harsh Mcnair MD Family Provider Active Dr. Harsh Mcnair MD Primary Care Provider Active Team Status: Active Member Role/Relationship Status Dates Dr. Harsh Mcnair MD Primary Care Provider Active Start: January 31, 2025 Manpreet DICKINSON MD Attending Provider Active Start: January 31, 2025 Team Status: Inactive Member Role/Relationship Status Dates Dr. Harsh Mcnair MD Primary Care Provider Active Start: February 01, 2025 End: February 01, 2025 Kathya Underwood SAND CUTTER OPERATOR, SAND CUTTER OPERATOR-C Attending Provider Active Start: February 01, 2025 End: February 01, 2025 Team Status: Inactive Member Role/Relationship Status Dates Dr. Harsh Mcnair MD Primary Care Provider Active Start: February 16, 2025 End: February 16, 2025 Kathya Underwood SAND CUTTER OPERATOR, SAND CUTTER OPERATOR-C Attending Provider Active Start: February 16, 2025 End: February 16, 2025 Team Status: Inactive Member Role/Relationship Status Dates Dr. Harsh Mcnair MD Primary Care Provider Active Start: April 10, 2025 End: April 10, 2025 Kathya Underwood SAND CUTTER OPERATOR, SAND CUTTER OPERATOR-C Attending Provider Active Start: April 10, 2025 End: April 10, 2025 INFORMATION SOURCE (unrecogn ized section and content) DATE CREATED AUTHOR 01/17/2024 [facility] DATE CREATED AUTHOR AUTHOR'S ORGANIZ ATION 03/30/2025 [facility] FOR RECORDS PERTAINING TO PATIENTS WHO ARE [...] BE BASED ON THE PRIMARY CLINICAL RECORDS. [facility]. provides no warranty or guarantee of the accuracy or completeness of information in this document.
[2025-04-26 08:18] LABS: Vitamin D,25 Hydroxy 47.9 ng/mL (30-100)
== END ==
LOC: OLS.WHLTSB 05:00
PROVIDERS: PCP Family Medicine; Visit Provider Internal Medicine
DX: F02.80 Dementia in other diseases classified elsewhere, unspecified severity, without behavioral disturbance, psychotic disturbance, mood disturbance, and anxiety (principal); L55.0 Sunburn of first degree; Z86.16 Personal history of COVID-19; E56.9 Vitamin deficiency, unspecified
CPT/HCPCS: 36415; 82306

== ENCOUNTER → 2025-05-02 04:00 | Outpatient (REF) | payer MEDICARE, OTHER, SELFPAY ==
--- OUTSIDE RECORDS SUMMARY | 2025-05-02 03:24 | XMS RPT_ITS | CCD ---
Author Organization [facility] Care Team Providers Care Market Director Name Role Phone Harsh Mcnair MD Primary [...] Dr. Harsh Mcnair Primary Care Provider Yasmine SALES REPRESENTATIVE JEWELRY, JESSE-Celeste Rasheed Attending Provider Unav ailable Dr. [...] Unavailable HARSH MCNAIR Primary Care Unavailable MARCELO MANCINI Attending Unavailable HARSH MCNAIR Primary Care Unavailable SCHWMELISSA, RAMÍREZ Referring Unavailable HARSH MCNAIR Primary Care Unavailable RAMÍREZ LEAVITT Attending Unavailable Dr. Harsh Mcnair MD Primary Care Provider Manpreet Ivy MD Attending Provider Unavailkalli Underwood SALES REPRESENTATIVE JEWELRY-C, Kathya Attending Provider Dr. Harsh Mcnair MD Primary Care Provider Manpreet Ivy MD Attending Provider UnavailHarsh Peguero Primary Care Unavailable Yasmine SALES REPRESENTATIVE JEWELRY, Kathya Attending Unavailable Manpreet Ivy Attending Unavailable Harsh Mcnair Primary Care Unavailable Harsh Mcnair Primary Care Unavailable Biju DICKINSON, Efewongbe Attending UnavailHarsh Mix Primary Care Unavailable Biju OLS, Efewongbe Attending UnavailHarsh Mix Primary Care Unavailable Biju DICKINSON Efewongbe Attending UnavailHarsh Mix Primary Care Unavailable Biju DICKINSON, Efewongbe Attending Unavailjose Underwood SALES REPRESENTATIVE JEWELRY, Kathya Attending Unavailable Xu, Harsh Primary Care Unavailable Allergies Allergy Classification Reported Allergen(s) Allergy Type Date of Onset Reaction(s) Facility (20 sources) Iodine; Translations: [IODINE] Drug Allergy 04-30-2005 Intolerance [facility] Work Phone: (20 sources) Penicillins; Translations: [PENICILLINS] Allergy to substance 03-03-2006 Anaphylaxis [facility] (1 source) Iodine Drug Allergy 07-22-2022 [facility] Repository Medications Current Medications Medication Drug Class(es) Dates Sig (Normalized) Sig (Original) acetaminophen 325 mg oral tablet (20 sources) Start: 02-16-2020 take 2 tablets by mouth every four hours as needed acetaminophen (TYLENOL) 325 mg tablet Take 2 tablets by mouth every 4 hours as needed. 02/16/2020 Active Comment on above: Take 2 tablets by mo [facility] every 4 hours as needed. aspirin [...] above: Take 1 tablet by [facility] once daily. carbidopa 25 mg / levodopa [...] 02-22-2022 take 1 tablet by [facility] once daily Carbidopa-Levodopa Active 1 TABLET PO [...] tablet by thomas th daily with breakfast. Dtmdlvfs-Xodfm-Xqz0- C-[facility] (7 sources) Start: 9 take 1 tablet by mouth once daily Ynyekbum-Hmikg-Kwt1 -C-[facility] Active 1 TABLET PO DAILY January 10, 2019 1:41pm Start: 01-10-2019 take 1 tablet by thomas th once daily Uftiteem-Bxgny-Xrh6-C-[facility] Active 1 TABLET PO DAILY January 09, 2019 11:00pm Start: 01-10-2019 take 1 tablet by thomas th once daily Hqrctndn-Avnnd-Acu0-C-[facility] Active 1 TABLET PO DAILY January 10, 2019 12:00am Otmtbdhg-Uptkg-Pac0-C-Jose Luis-B or [id number] mg tablet (4 sources) Start: 01-10-2019 Hupkadrq-Jepzw-Vuw5-C-Jose Luis-B or [id number] mg tablet Active 1 {tbl} PO DAILY 0 January 10, 2019 12:00am Start: 01-10-2019 Glucosam-Chond -Ekf7-I-Gptc-Bor [id number] mg tablet Active 1 {tbl} PO DAILY [...] 1 tablet by thomas th once daily Ehvlccyobvkt-Qddajdez-Kneict Active 1 TA BLET PO DAILY January 09, 2019 11:00pm Start: 01-10-2019 take 1 tablet by thomas th once daily Grdrfqwcnral-Zdxxuqmb-Mqhzat Active 1 TA BLET PO DAILY January 10, 2019 12:00am Mappbxlnxkhm-Orbeyemu-Axiboj tablet (4 sources) Start: 01-10-2019 Fioqhadmokfs-Eouxpbfm-Dyqqec tablet Active 1 {tbl} PO DAILY January [...] above: Take 1 tablet by [facility] once daily. Psyllium (5 sources) Start: 02-22-2022 take 8 [oz_av] by mouth twice daily Psyllium Active 1 PACKET PO TWICE A DAY February 21, 2022 11:00pm mix into at least 8 oz of water or juice before administering Start: 02-22-2022 take 8 [oz_av] by [facility] twice daily Psyllium Active 1 PACKET PO [...] administering Start: 02-22-2022 take 8 [oz_av] by [facility] twice daily Psyllium Packet Active 1 NMA [...] on above: Take 2 tablets by mo [facility] once daily. simvastatin 40 mg oral [...] Active Start: 10-03-2022 take 1 tablet by thmoas th once daily vibegron (GEMTESA) 75 mg [...] Auto (Unsp spec) [#/Vol] 2.14 10*3/uL 0.83-4.51 [facility] Absolute neutrophil countOrd ered By: Manpreet Ivy on 01-31-2025 Neutrophils (Bld) [#/Vol] 4.4 10*3/uL 2.0-7.7 [facility] Anion gap in Serum or Plasma Ordered By: Manpreet Ivy on 01-31-2025 Anion gap [Moles/Vol] 12 mmol/L 5-15 [facility] Automated lymphocyte count a s percentage of total leukocytesOrdered By: Manpreet Ivy on 01-31-2025 Lymphocytes/100 WBC Auto (Unsp spec) 29.4 % 19-41 [facility] BUN/creatinine ratioOrdered By: Manpreet Ivy on 01-31-2025 Urea nitrogen/Creatinine [Mass ratio] 14.8 mg/mg 10-20 [facility] Basophil percentageOrdered B y: Manpreet Ivy on 01-31-2025 Basophils/100 WBC (Bld) 0.7 % 0-1 [facility] Bilirubin, totalOrdered By: Manpreet Ivy on 01-31-2025 Bilirubin [Mass/Vol] 0.23 mg/dL 0.00-1.30 [facility] Calculated very low density lipoprotein (VLDL) cholesterol measurementOrdered By: Manpreet Ivy on 01-31-2025 Calculated very low density lipoprotein (VLDL) cholesterol measurement 30 mg/dL 5-40 [facility] Carbon dioxide, total [Moles /volume] in Central venous bloodOrdered By: Manpreet Ivy on 01-31-2025 CO2 [Moles/Vol] 22.5 mmol/L 21.0-32.0 [facility] Chloride assayOrdered By: Bailey Ivy on 01-31-2025 Chloride [Moles/Vol] 102 mmol/L 98-108 [facility] Eosinophil percentageOrdered By: Manpreet Ivy on 01-31-2025 Eosinophils/100 WBC (Bld) 2.1 % 0-5 [facility] Erythrocyte distribution wid th ratioOrdered By: Manpreet Ivy on 01-31-2025 Erythrocyte distribution width (RBC) [Ratio] 12.8 % 11.6-14.6 [facility] Erythrocyte distribution wid th standard deviationOrdered By: Manpreet Iyv on 01-31-2025 Erythrocyte distribution width (RBC) [Ratio] 41.5 fl 35.1-43.9 [facility] Glomerular filtration rate ( GFR) estimation/1.73 sq m using serum, plasma, or whole bOrdered By: Manpreet Ivy on 01-31-2025 GFR/1.73 sq M.predicted among non-blacks MDRD (S/P/Bld) [Vol rate/Area] 57 mL/min/{1.73_m2} Low >60 [facility] Comment on above: mL/min/1.73m2 CKD-EP I Creatinine Equation (2020) Hematocrit Auto (Bld) [Volum e fraction]Ordered By: Manpreet Ivy on 01-31-2025 Hematocrit (Bld) [Volume fraction] 41.1 % 37-47 [facility] Hemoglobin A1c percentageOrd ered By: Manpreet Ivy on 01-31-2025 HbA1c (Bld) [Mass fraction] 8.1 % High <5.7 [facility] Comment on above: Normal < 5.7 % Predi abetic 5.7 - 6.4 % Diabetic >or= 6.5 % Please note range changes. Hemoglobin measurementOrdere d By: Manpreet Ivy on 01-31-2025 Hemoglobin (Bld) [Mass/Vol] 13.1 g/dL 12.0-15.0 [facility] Immature granulocytes/100 WB C Auto (Bld)Ordered By: Manpreet Ivy on 01-31-2025 Immature granulocytes/100 WBC (Bld) 0.400 % 0.0-0.9 [facility] Comment on above: IG% - Immature Granu locytes (promyelocytes, myelocytes and metamyelocytes) > 1% indicates that a LEFT SHIFT is Present. LDL calc ser/plasOrdered By: Manpreet Ivy on 01-31-2025 Cholesterol in LDL [Mass/Vol] 56 mg/dL [facility] Comment on above: Apszowjzie=941-695 m g/dL & Higher Trhp=932 mg/dL or greater Laboratory - Chemistry and C hemistry - challengeOrdered By: Manpreet Ivy on 01-31-2025 AST [Catalytic activity/Vol] 20 U/L <32 [facility] MCV (mean corpuscular volume ) determinationOrdered By: Manpreet Ivy on 01-31-2025 MCV (RBC) [Entitic vol] 89.0 fL 81-99 [facility] Mean corpuscular hemoglobin (MCH) determinationOrdered By: Manpreet Ivy on 01-31-2025 MCH (RBC) [Entitic mass] 28.4 pg 27.0-32.0 [facility] Mean corpuscular hemoglobin concentration (MCHC) determinationOrdered By: Manpreet Ivy on 01-31-2025 MCHC (RBC) [Mass/Vol] 31.9 g/dL Low 32-36 [facility] Mean platelet volume determi nationOrdered By: Manpreet Ivy on 01-31-2025 Platelet mean volume (Bld) [Entitic vol] 10.1 fL 6.2-12.0 [facility] Monocyte percentageOrdered B y: Manpreet Ivy on 01-31-2025 Monocytes/100 WBC (Bld) 6.7 % 0-10 [facility] Neutrophil percentageOrdered By: Manpreet Ivy on 01-31-2025 Neutrophils/100 WBC (Bld) 60.7 % 47-70 [facility] Nucleated red blood cell per centageOrdered By: Manpreet Ivy on 01-31-2025 Nucleated RBC/100 WBC (Bld) [Ratio] 0 % 0-5 [facility] Platelet countOrdered By: Bailey Ivy on 01-31-2025 Platelets (Bld) [#/Vol] 192 10*3/uL 150-450 [facility] Potassium measurement (mass/ volume)Ordered By: Manpreet Ivy on 01-31-2025 Potassium (Unsp spec) [Mass/Vol] 4.9 mmol/L 3.3-5.1 [facility] Comment on above: Hemolysis present, R esults could be affected. RBC Auto (Bld) [#/Vol]Ordere d By: Manpreet Ivy on 01-31-2025 RBC (Bld) [#/Vol] 4.62 10*6/uL 4.2-5.4 [facility] Screening total cholesterol/ high density lipoprotein (HDL) cholesterol ratioOrdered By: Manpreet Ivy on 01-31-2025 Cholesterol.total/Beatriz sterol in HDL [Mass ratio] 2.54 {ratio} [facility] Serum creatinine measurement (mass/volume)Ordered By: Manpreet Ivy on 01-31-2025 Creatinine [Mass/Vol] 0.98 mg/dL 0.70-1.20 [facility] Serum globulin measurementOr dered By: Manpreet Ivy on 01-31-2025 Globulin (S) [Mass/Vol] 2.5 g/dL 2.2-4.2 [facility] Serum glucose measurement (m ass/volume)Ordered By: Manpreet Ivy on 01-31-2025 Glucose [Mass/Vol] 182 mg/dL High 70-99 [facility] Serum or plasma alanine corral otransferase (ALT) measurementOrdered By: Shanekaelton Diasoliviajuan jose 01-31-2025 ALT [Catalytic activity/Vol] 10 U/L <35 [facility] Serum or plasma albumin cinthia urement (mass/volume)Ordered By: [facility] Diasjuan jose 01-31-2025 Albumin [Mass/Vol] 4.5 g/dL 3.4-4.8 [facility] Serum or plasma albumin/glob ulin mass ratioOrdered By: [facility] 01-31-2025 Albumin/Globulin [Mass ratio] 1.8 {ratio} 0.9-2.4 [facility] Serum or plasma alkaline mireya sphatase measurementOrdered By: [facility] 01-31-2025 ALP [Catalytic activity/Vol] 72 U/L 35-104 [facility] Serum or plasma calcium cinthia urement (mass/volume)Ordered By: [facility] 01-31-2025 Calcium [Mass/Vol] 9.7 mg/dL 7.6-11.0 [facility] Serum or plasma cholesterol in HDL measurement (mass/volume)Ordered By: [facility] 01-31-2025 Cholesterol in HDL [Mass/Vol] 56 mg/dL >40 [facility] Comment on above: National Cholesterol Education Program (NCEP) guidelines:<40 mg/dL: Low HDL-cholesterol (major risk factor for CHD)>= 60 mg/dL: High HDL-cholesterol (negative risk factor for CHD)HDL-cholesterol is affected by a number of factors, e.g. smoking, exercise, hormones, sex and age. Serum or plasma cholesterol measurement (mass/volume)Ordered By: [facility] Diasjuan jose 01-31-2025 Cholesterol [Mass/Vol] 141 mg/dL <201 [facility] Comment on above: Cholesterol level, D esirable <200 mg/dLBorderline high cholesterol 200-239 mg/dLHigh cholesterol >=240 mg/dLRecommendations of the NCEP Adult Treatment Panel for the following risk-cutoff thresholds for the [place] population. Serum or plasma urea nitroge n measurement (mass/volume)Ordered By: [facility] Diasjuan jose 01-31-2025 Urea nitrogen [Mass/Vol] 15 mg/dL 4-19 [facility] Sodium levelOrdered By: Shaneka Ivy on 01-31-2025 Sodium [Moles/Vol] 136 mmol/L 133-145 [facility] Total proteinOrdered By: Kevin Ivy on 01-31-2025 Protein [Mass/Vol] 6.9 g/dL 5.9-8.4 [facility] Triglycerides measurementOrd ered By: Manpreet Ivy on 01-31-2025 Triglyceride [Mass/Vol] 149 mg/dL <199 [facility] Comment on above: The drugs N-Acetylcy steine and Metamizole may falsely depress this assay. Normal range: <150 mg/dLBorderline High: 150-199 mg/dLHigh: 200-499 mg/dLVery High: >500 mg/dL White blood cell (WBC) count Ordered By: Manpreet Ivy on 01-31-2025 WBC (Bld) [#/Vol] 7.3 10*3/uL 4.4-11.0 [facility] Absolute lymphocyte countOrd ered By: Manpreet Ivy on 11-02-2024 Lymphocytes Auto (Unsp spec) [#/Vol] 2.46 10*3/uL 0.83-4.51 [facility] Absolute neutrophil countOrd ered By: Manpreet Ivy on 11-02-2024 Neutrophils (Bld) [#/Vol] 3.9 10*3/uL 2.0-7.7 [facility] Automated lymphocyte count a s percentage of total leukocytesOrdered By: Manpreet Ivy on 11-02-2024 Lymphocytes/100 WBC Auto (Unsp spec) 34.1 % 19- [facility] BUN/creatinine ratioOrdered By: Manpreet Ivy on 11-02-2024 Urea nitrogen/Creatinine [Mass ratio] 18.1 mg/mg 10-20 [facility] Basophil percentageOrdered B y: Manpreet Ivy on 11-02-2024 Basophils/100 WBC (Bld) 0.8 % 0-1 [facility] Bilirubin, totalOrdered By: Manpreet Ivy on 11-02-2024 Bilirubin [Mass/Vol] 0.16 mg/dL 0.00-1.30 [facility] Calculated very low density lipoprotein (VLDL) cholesterol measurementOrdered By: Manpreet Ivy on 11-02-2024 Calculated very low density lipoprotein (VLDL) cholesterol measurement 22 mg/dL 5-40 [facility] VLDL Cholesterol 22 mg/dL 5-40 [facility] Carbon dioxide measurementOr dered By: Manpreet Ivy on 11-02-2024 CO2 [Moles/Vol] 23.9 mmol/L 22.0-29.0 [facility] Chloride measurementOrdered By: Manpreet Ivy on 11-02-2024 Chloride [Moles/Vol] 101 mmol/L 96-108 [facility] Eosinophil percentageOrdered By: Manpreet Ivy on 11-02-2024 Eosinophils/100 WBC (Bld) 2.6 % 0-5 [facility] Erythrocyte distribution wid th (RBC) [Ratio]Ordered By: Manpreet Ivy on 11-02-2024 Erythrocyte distribution width (RBC) [Entitic vol] 41.3 fL 35.1-43.9 [facility] Erythrocyte distribution wid th ratioOrdered By: Manpreet Ivy on 11-02-2024 Erythrocyte distribution width (RBC) [Ratio] 12.7 % 11.6-14.6 [facility] Erythrocyte distribution wid th standard deviationOrdered By: Manpreet Ivy on 11-02-2024 Erythrocyte distribution width (RBC) [Ratio] 41.3 fl 35.1-43.9 [facility] GFR/1.73 sq M.predicted antonio g non-blacks MDRD (S/P/Bld) [Vol rate/Area]Ordered By: Manpreet Ivy on 11-02-2024 Estimated GFR (MDRD) Non-Af Amer 61 >60 [facility] Comment on above: mL/min/1.73m2 CKD-EP I Creatinine Equation (2020) Glomerular filtration rate ( GFR) estimation/1.73 sq m using serum, plasma, or whole bOrdered By: Manpreet Ivy on 11-02-2024 GFR/1.73 sq M.predicted among non-blacks MDRD (S/P/Bld) [Vol rate/Area] 61 mL/min/{1.73_m2} >60 [facility] Comment on above: mL/min/1.73m2 CKD-EP I Creatinine Equation (2020) Hematocrit Auto (Bld) [Volum e fraction]Ordered By: Manpreet Ivy on 11-02-2024 Hematocrit (Bld) [Volume fraction] 38.7 % 37-47 [facility] Hemoglobin A1c percentageOrd ered By: Manpreet Ivy on 11-02-2024 HbA1c (Bld) [Mass fraction] 7.4 % >5.7 [facility] Hemoglobin measurementOrdere d By: Manpreet Ivy on 11-02-2024 Hemoglobin (Bld) [Mass/Vol] 12.5 g/dL 12.0-15.0 [facility] Immature granulocytes/100 WB C Auto (Bld)Ordered By: hui Ivy on 11-02-2024 Immature granulocytes/100 WBC (Bld) 0.600 % 0.0-0.9 [facility] Comment on above: IG% - Immature Granu locytes (promyelocytes, myelocytes and metamyelocytes) > 1% indicates that a LEFT SHIFT is Present. LDL calc ser/plasOrdered By: Manpreet Ivy on 11-02-2024 Cholesterol in LDL [Mass/Vol] 55 mg/dL [facility] Comment on above: Dgrtwtlngr=371-863 m g/dL & Higher Vatv=077 mg/dL or greater LDL Cholesterol, Calculated 55 mg/dL [facility] Comment on above: Swfvtxvhzq=393-849 m g/dL & Higher Yvgn=018 mg/dL or greater Laboratory - Chemistry and C hemistry - challengeOrdered By: Manpreet Ivy on 11-02-2024 AST [Catalytic activity/Vol] 23 U/L <32 [facility] Lymphocytes Auto (Unsp spec) [#/Vol]Ordered By: Manpreet Ivy on 11-02-2024 Lymphocytes (Bld) [#/Vol] 2.46 10*3/uL 0.83-4.51 [facility] Lymphocytes/100 WBC Auto (Un sp spec)Ordered By: Manpreet Ivy on 11-02-2024 Lymphocytes/100 WBC (Bld) 34.1 % 19-41 [facility] MCV (mean corpuscular volume ) determinationOrdered By: Manpreet Ivy on 11-02-2024 MCV (RBC) [Entitic vol] 88.8 fL 81-99 [facility] Mean corpuscular hemoglobin (MCH) determinationOrdered By: Manpreet Ivy on 11-02-2024 MCH (RBC) [Entitic mass] 28.7 pg 27.0-32.0 [facility] Mean corpuscular hemoglobin concentration (MCHC) determinationOrdered By: Manpreet Ivy on 11-02-2024 MCHC (RBC) [Mass/Vol] 32.3 g/dL 32-36 [facility] Mean platelet volume determi nationOrdered By: Manpreet Ivy on 11-02-2024 Platelet mean volume (Bld) [Entitic vol] 10.6 fL 6.2-12.0 [facility] Monocyte percentageOrdered B y: Manpreet Ivy on 11-02-2024 Monocytes/100 WBC (Bld) 8.0 % 0-10 [facility] Neutrophil percentageOrdered By: Manpreet Ivy on 11-02-2024 Neutrophils/100 WBC (Bld) 53.9 % 47-70 [facility] Nucleated red blood cell per centageOrdered By: Manpreet Ivy on 11-02-2024 Nucleated RBC/100 WBC (Bld) [Ratio] 0 % 0-5 [facility] Platelet countOrdered By: Bailey Ivy on 11-02-2024 Platelets (Bld) [#/Vol] 186 10*3/uL 150-450 [facility] RBC Auto (Bld) [#/Vol]Ordere d By: Manpreet Ivy on 11-02-2024 RBC (Bld) [#/Vol] 4.36 10*6/uL 4.2-5.4 [facility] Screening total cholesterol/ high density lipoprotein (HDL) cholesterol ratioOrdered By: Manpreet Ivy on 11-02-2024 Cholesterol.total/Beatriz sterol in HDL [Mass ratio] 2.53 {ratio} [facility] Serum creatinine measurement (mass/volume)Ordered By: Manpreet Ivy on 11-02-2024 Creatinine [Mass/Vol] 0.9 mg/dL 0.70-1.20 [facility] Serum globulin measurementOr dered By: Manpreet Ivy on 11-02-2024 Globulin (S) [Mass/Vol] 2.1 g/dL Low 2.2-4.2 [facility] Serum glucose measurement (m ass/volume)Ordered By: Manpreet Ivy on 11-02-2024 Glucose [Mass/Vol] 106 mg/dL High 70-99 [facility] Serum or plasma alanine corral otransferase (ALT) measurementOrdered By: Manpreet Ivy on 11-02-2024 ALT [Catalytic activity/Vol] 17 U/L <35 [facility] Serum or plasma albumin cinthia urement (mass/volume)Ordered By: Manpreet Ivy on 11-02-2024 Albumin [Mass/Vol] 4.2 g/dL 3.4-4.8 [facility] Serum or plasma albumin/glob ulin mass ratioOrdered By: Manpreet Ivy on 11-02-2024 Albumin/Globulin [Mass ratio] 2.0 {ratio} 0.9-2.4 [facility] Serum or plasma alkaline mireya sphatase measurementOrdered By: Manpreet Ivy on 11-02-2024 ALP [Catalytic activity/Vol] 70 U/L 35-104 [facility] Serum or plasma anion gap de termination (moles/volume)Ordered By: Manpreet Ivy on 11-02-2024 Anion gap [Moles/Vol] 14 mmol/L 5-15 [facility] Serum or plasma calcium cinthia urement (mass/volume)Ordered By: Manpreet Ivy on 11-02-2024 Calcium [Mass/Vol] 9.6 mg/dL 7.6-11.0 [facility] Serum or plasma cholesterol in HDL measurement (mass/volume)Ordered By: Manpreet Ivy on 11-02-2024 Cholesterol in HDL [Mass/Vol] 51 mg/dL >40 [facility] Comment on above: National Cholesterol Education Program (NCEP) guidelines:<40 mg/dL: Low HDL-cholesterol (major risk factor for CHD)>= 60 mg/dL: High HDL-cholesterol (negative risk factor for CHD)HDL-cholesterol is affected by a number of factors, e.g. smoking, exercise, hormones, sex and age. Serum or plasma cholesterol measurement (mass/volume)Ordered By: Manpreet Ivy on 11-02-2024 Cholesterol [Mass/Vol] 128 mg/dL <201 [facility] Comment on above: Cholesterol level, D esirable <200 mg/dLBorderline high cholesterol 200-239 mg/dLHigh cholesterol >=240 mg/dLRecommendations of the NCEP Adult Treatment Panel for the following risk-cutoff thresholds for the [place] population. Serum or plasma potassium me asurementOrdered By: Manpreet Ivy on 11-02-2024 Potassium [Moles/Vol] 4.1 mmol/L 3.3-5.1 [facility] Serum or plasma sodium measu rement (moles/volume)Ordered By: Manpreet Ivy on 11-02-2024 Sodium [Moles/Vol] 139 mmol/L 133-145 [facility] Serum or plasma urea nitroge n measurement (mass/volume)Ordered By: Manpreet Ivy on 11-02-2024 Urea nitrogen [Mass/Vol] 17 mg/dL 4-19 [facility] Total proteinOrdered By: Kevin Ivy on 11-02-2024 Protein [Mass/Vol] 6.3 g/dL 5.9-8.4 [facility] Triglycerides measurementOrd ered By: Manpreet Ivy on 11-02-2024 Triglyceride [Mass/Vol] 110 mg/dL <199 [facility] Comment on above: The drugs N-Acetylcy steine and Metamizole may falsely depress this assay. Normal range: <150 mg/dLBorderline High: 150-199 mg/dLHigh: 200-499 mg/dLVery High: >500 mg/dL White blood cell (WBC) count Ordered By: Manpreet Ivy on 11-02-2024 WBC (Bld) [#/Vol] 7.2 10*3/uL 4.4-11.0 [facility] 01-14-2024 CNPN Telephone (FAMPWS) MIKERAMONA TOMPKINS ([id number]) 1940 F Date Time Provider Department 01/14/24 [facility] During your visit today, we recorded the following information about you: Shahrzad Anderson MA 01/14/2024 9:06 AM Signed Type of letter/form/fax request - Medical Necessity-PAP supplies Form received from fax on 1 floor and placed on MD desk (Dr. Mcnair) for completion. Completed form needs to be faxed to Nancy at [phone]. Route to [place] when form completed for processing Afsaneh Cruz MA 01/14/2024 3:14 PM Addendum Pt is currently receiving prescription from Dr. Ivy as of September 2023 and is under her care. She is currently at [facility]. The documents are requesting an OV note [...] - Fully Assessed Reason for Visit: Forms [333] Cmt: Nancy-CPAP supplies Prescriptions as of 01/15/2024 [...] Encounter Status:Closed by SHAHRZAD ANDERSON on 01/15/24 [facility] Absolute lymphocyte countOrd ered By: Manpreet Ivy on 11-03-2023 Lymphocytes Auto (Unsp spec) [#/Vol] 2.35 10*3/uL 0.83-4.51 [facility] Automated lymphocyte count a s percentage of total leukocytesOrdered By: Manpreet Ivy on 11-03-2023 Lymphocytes/100 WBC Auto (Unsp spec) 31.8 % 19-41 [facility] Basophil percentageOrdered B y: Manpreet Ivy on 11-03-2023 Basophils/100 WBC (Bld) 0.7 % 0-1 [facility] Bilirubin [Mass/Vol] 0.20 mg/dL 0.20-1.00 [facility] Comment on above: For patients on eltr ombopag therapy, use of Dimension [place] TBIL is not recommended. Chloride [Moles/Vol] 105 mmol/L 98-107 [facility] Cholesterol [Mass/Vol] 168 mg/dL <200 [facility] Comment on above: <200 mg/dL Desirable 200-240 mg/dL Borderline >240 mg/dL High Risk Eosinophils/100 WBC (Bld) 4.5 % 0-5 [facility] Glucose [Mass/Vol] 118 mg/dL 74-106 [facility] Comment on above: Fasting Glucose resu lt from 100 to 125 mg/dL suggests IMPAIRED HOMEOSTASIS per A.D.A. criteria. Hemoglobin (Bld) [Mass/Vol] 11.0 g/dL 12.0-15.0 [facility] Monocytes/100 WBC (Bld) 8.9 % 0-10 [facility] Neutrophils (Bld) [#/Vol] 4.0 10*3/uL 2.0-7.7 [facility] Neutrophils/100 WBC (Bld) 53.8 % 47-70 [facility] Potassium [Moles/Vol] 4.0 mmol/L 3.5-5.1 [facility] Protein [Mass/Vol] 6.2 g/dL 6.4-8.2 [facility] Sodium [Moles/Vol] 138 mmol/L 136-145 [facility] Triglyceride [Mass/Vol] 187 mg/dL <199 [facility] Comment on above: The drugs N-Acetylcy steine and Metamizole may falsely depress this assay.Serum Triglycerides Reference Interval Normal <150 mg/dL Borderline high 150 - 199 mg/dL High 200 - 499 mg/dL Very High > or = 500 mg/dL WBC (Bld) [#/Vol] 7.4 10*3/uL 4.4-11.0 [facility] Determination of erythrocyte mean corpuscular volume (MCV)Ordered By: Manpreet Ivy on 11-03-2023 MCV (RBC) [Entitic vol] 87.0 fL 81-99 [facility] Erythrocyte distribution wid th ratioOrdered By: Shanekadeep gapel Diasjuan jose on 11-03-2023 Erythrocyte distribution width (RBC) [Ratio] 13.9 % 11.6-14.6 [facility] Erythrocyte distribution wid th standard deviationOrdered By: [facility] Arunjuan jose on 11-03-2023 Erythrocyte distribution width (RBC) [Entitic vol] 43.9 fL 35.1-43.9 [facility] Hematocrit Auto (Bld) [Volum e fraction]Ordered By: Manpreet Ivy on 11-03-2023 Hematocrit (Bld) [Volume fraction] 34.7 % 37-47 [facility] Immature granulocytes/100 WB C Auto (Bld)Ordered By: Manpreet Ivy on 11-03-2023 Immature granulocytes/100 WBC (Bld) 0.300 % 0.0-0.9 [facility] Comment on above: IG% - Immature Granu locytes (promyelocytes, myelocytes and metamyelocytes) > 1% indicates that a LEFT SHIFT is Present. Laboratory - Chemistry and C hemistry - challengeOrdered By: Manpreet Ivy on 11-03-2023 Albumin/Globulin [Mass ratio] 1.1 {ratio} 0.9-2.4 [facility] ALP [Catalytic activity/Vol] 59 U/L 45-117 [facility] ALT [Catalytic activity/Vol] 19 U/L 13-56 [facility] Cholesterol in HDL [Mass/Vol] 47 mg/dL >40 [facility] Comment on above: The drugs N-Acetylcy steine and Metamizole may falsely depress this assay. Reference Range HDL <40 mg/dL Low HDL Cholesterol HDL >or= 60 mg/dL High HDL Cholesterol Cholesterol in LDL [Mass/Vol] 84 mg/dL 0-130 [facility] CO2 [Moles/Vol] 28.0 mmol/L 21.0-32.0 [facility] Globulin (S) [Mass/Vol] 3.0 g/dL 2.2-4.2 [facility] Urea nitrogen/Creatinine [Mass ratio] 14.6 mg/mg 10-20 [facility] Laboratory - Hematology and Cell countsOrdered By: Manpreet Ivy on 11-03-2023 MCH (RBC) [Entitic mass] 27.6 pg 27.0-32.0 [facility] MCHC (RBC) [Mass/Vol] 31.7 g/dL 32-36 [facility] Nucleated RBC/100 WBC (Bld) [Ratio] 0 % 0-5 [facility] Platelet mean volume (Bld) [Entitic vol] 10.5 fL 6.2-12.0 [facility] Platelets (Bld) [#/Vol] 213 10*3/uL 150-450 [facility] No Panel InformationOrdered By: Manpreet Ivy on 11-03-2023 Estimated GFR (MDRD) Amer 72 mL/min >60 [facility] Comment on above: GFR Calc Estimated GFR (MDRD) Non-Af Amer 59 mL/min >60 [facility] Comment on above: Non- GFR Calc VLDL Cholesterol 37 mg/dL 5-40 [facility] RBC Auto (Bld) [#/Vol]Ordere d By: Manpreet Ivy on 11-03-2023 RBC (Bld) [#/Vol] 3.99 10*6/uL 4.2-5.4 [facility] Serum or plasma calcium cinthia urement (mass/volume)Ordered By: Manpreet Ivy on 11-03-2023 Calcium [Mass/Vol] 9.2 mg/dL 8.5-10.1 [facility] Serum or plasma creatinine m easurement (mass/volume)Ordered By: Manpreet Ivy on 11-03-2023 Creatinine [Mass/Vol] 0.96 mg/dL 0.55-1.02 [facility] Comment on above: The validity of the calculated GFR & GFRAA in patients over 70 years has not been determined. Clinical correlation is essential. Serum or plasma urea nitroge n measurement (mass/volume)Ordered By: Manpreet Ivy on 11-03-2023 Urea nitrogen [Mass/Vol] 14 mg/dL 03-24 [facility] Thin prep Papanicolaou smear with manual screeningOrdered By: Manpreet Ivy on 11-03-2023 Thin prep Papanicolaou smear with manual screening 3.2 g/dL 3.2-5.0 [facility] Thin prep Papanicolaou smear with manual screening 17 U/L 15-37 [facility] Thin prep Papanicolaou smear with manual screening 5 5-15 [facility] Whole blood hemoglobin A1c/t otal hemoglobin ratio (mass fraction)Ordered By: Manpreet Ivy on 11-03-2023 HbA1c (Bld) [Mass fraction] 6.9 % 3.8-5.6 [facility] Comment on above: Normal < 5.7 % Predi abetic 5.7 - 6.4 % Diabetic >or= 6.5 % Please note range changes. CNOVon 09-24-2023 CNOV Office Visit (NREUS2 ) RAMONA MIKE ([id number]) 1940 F Date Time Provider Department 09/24/23 3:00 PM RAMÍREZ LEAVITT NREUS2 During your visit today, we recorded the following information about you: Pulse Blood pressure 102/minute 130/64 Ramírez Leavitt PA-C 09/25/2023 8:21 AM Signed CC: SURGICAL SCRUB TECHNICIAN shunt f/u HPI: Mrs Mike comes to clinic today for surgical f/u. She had a SURGICAL SCRUB TECHNICIAN shunt implanted on 04/13/20 with Certas valve. [...] a history of NPH. She had a SURGICAL SCRUB TECHNICIAN shunt implanted on 8/7/20 with Certas valve. [...] reviewed which shows stable enlarged ventricle system, SURGICAL SCRUB TECHNICIAN shunt catheter in place and no acute abnormalities. We discussed benefits and risks of SURGICAL SCRUB TECHNICIAN shunt adjustment. After discussion, Ramona and her daughter would like to continue to work with PT to try and become more active without adjusting shunt. Plan for follow up in 6-[address] brain. Plan: Shunt information Shunt type: Certas Initial settin New settin Ramírez Leavitt PA-C Referring Provider: RAMÍREZ LEAVITT [[id number]] Allergies As of Date: 09/24/2023 Noted Allergy Reaction PENICILLINS 03/03/2006 10 - Anaphylaxis IODINE 04/30/2005 5 - Intolerance Date Reviewed: 09/24/2023 Reviewed by: Jackson Duran - Fully Assessed Reason for Visit: Established Patient [175] Cmt: F/u gave tablet Primary Visit Diagnosis:Other hydrocephalus (HCC) [G91.8] Order(s):CT BRAIN WO [facility] [[id number]] Order #: [id number] FUTURE Prescriptions as of 09/25/2023 - meloxicam [...] Problem Li (more content not included)... 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 MQ: [id number] CT Radiation dose: Integrated Dose-Length Product (DLP) for this visit = 776 mGy*cm CT Dose Reduction Employed: None COMPARISON: CT brain without contrast 02/05/2023. RESULT: Regional Branch Manager (topogram) images: No additional findings. Post-operative change: Right frontal approach shunt catheter terminating in the region of foramen of [place]ro. The shunt reservoir resides within the right frontal scalp. The distal catheter tip courses along the right parietal scalp and postauricular soft tissues extending beyond the [id number]. No evident discontinuity along the imaged portions [...] minimally progressed as compared to prior exam. Box Spinner: SARITA Transcribe Date/Time: Sep 24 2023 1:57P Dictated by : KERLINE EASTON MD This examination was interpreted and the report reviewed and electronically signed by: MONTRELL NEVES MD on Sep 24 2023 2:18PM EST [id number] Normal [facility] Absolute lymphocyte countOrd ered By: Manpreet Ivy on 09-16-2023 Lymphocytes Auto (Unsp spec) [#/Vol] 1.50 10*3/uL 0.83-4.51 [facility] Basophil percentageOrdered B y: Manpreet Ivy on 09-16-2023 Basophils/100 WBC (Bld) 0.4 % 0-1 [facility] Chloride [Moles/Vol] 104 mmol/L 98-107 [facility] Eosinophils/100 WBC (Bld) 0.4 % 0-5 [facility] Glucose [Mass/Vol] 206 mg/dL 74-106 [facility] Comment on above: Glucose result great er than or equal to 200 mg/dLsuggests DIABETES MELLITUS per A.D.A. criteria. Neutrophils (Bld) [#/Vol] 10.6 10*3/uL 2.0-7.7 [facility] Neutrophils/100 WBC (Bld) 79.4 % 47-70 [facility] Potassium [Moles/Vol] 4.1 mmol/L 3.5-5.1 [facility] Sodium [Moles/Vol] 136 mmol/L 136-145 [facility] WBC (Bld) [#/Vol] 13.4 10*3/uL 4.4-11.0 [facility] Blood erythrocytes count (nu mber/volume)Ordered By: Manpreet Ivy on 09-16-2023 RBC (Bld) [#/Vol] 4.48 10*6/uL 4.2-5.4 [facility] Blood hemoglobin measurement (mass/volume)Ordered By: Manpreet Ivy on 09-16-2023 Hemoglobin (Bld) [Mass/Vol] 12.6 g/dL 12.0-15.0 [facility] Blood lymphocytes/100 leukoc ytesOrdered By: Manpreet Ivy on 09-16-2023 Lymphocytes/100 WBC (Bld) 11.2 % 19-41 [facility] Blood monocytes/100 leukocyt esOrdered By: Manpreet Ivy on 09-16-2023 Monocytes/100 WBC (Bld) 7.9 % 0-10 [facility] Blood platelet mean volumeOr dered By: Manpreet Ivy on 09-16-2023 Platelet mean volume (Bld) [Entitic vol] 11.4 fL 6.2-12.0 [facility] Determination of erythrocyte mean corpuscular volume (MCV)Ordered By: Manpreet Ivy on 09-16-2023 MCV (RBC) [Entitic vol] 87.1 fL 81-99 [facility] Hematocrit Auto (Bld) [Volum e fraction]Ordered By: Manpreet Ivy on 09-16-2023 Hematocrit (Bld) [Volume fraction] 39.0 % 37-47 [facility] Laboratory - Chemistry and C hemistry - challengeOrdered By: Manpreet Ivy on 09-16-2023 CO2 [Moles/Vol] 23.0 mmol/L 21.0-32.0 [facility] Urea nitrogen/Creatinine [Mass ratio] 20.2 mg/mg 10-20 [facility] Laboratory - Hematology and Cell countsOrdered By: Manpreet Ivy on 09-16-2023 Erythrocyte distribution width (RBC) [Entitic vol] 41.3 fL 35.1-43.9 [facility] Erythrocyte distribution width (RBC) [Ratio] 13.2 % 11.6-14.6 [facility] Immature granulocytes/100 WBC (Bld) 0.700 % 0.0-0.9 [facility] Comment on above: IG% - Immature Granu locytes (promyelocytes, myelocytes and metamyelocytes) > 1% indicates that a LEFT SHIFT is Present. MCH (RBC) [Entitic mass] 28.1 pg 27.0-32.0 [facility] Nucleated RBC/100 WBC (Bld) [Ratio] 0 % 0-5 [facility] MCHC Auto (RBC) [Mass/Vol]Or dered By: Manpreet Ivy on 09-16-2023 MCHC (RBC) [Mass/Vol] 32.3 g/dL 32-36 [facility] No Panel InformationOrdered By: Manpreet Ivy on 09-16-2023 Estimated GFR (MDRD) Amer 65 mL/min >60 [facility] Comment on above: GFR Calc Estimated GFR (MDRD) Non-Af Amer 54 mL/min >60 [facility] Comment on above: Non- GFR Calc Platelets bldOrdered By: Keivn Ivy on 09-16-2023 Platelets (Bld) [#/Vol] 188 10*3/uL 150-450 [facility] Serum or plasma calcium cinthia urement (mass/volume)Ordered By: Manpreet Ivy on 09-16-2023 Calcium [Mass/Vol] 9.7 mg/dL 8.5-10.1 [facility] Serum or plasma creatinine m easurement (mass/volume)Ordered By: Manpreet Ivy on 09-16-2023 Creatinine [Mass/Vol] 1.04 mg/dL 0.55-1.02 [facility] Comment on above: The validity of the calculated GFR & GFRAA in patients over 70 years has not been determined. Clinical correlation is essential. Serum or plasma urea nitroge n measurement (mass/volume)Ordered By: Manpreet Ivy on 09-16-2023 Urea nitrogen [Mass/Vol] 21 mg/dL 7-18 [facility] Thin prep Papanicolaou smear with manual screeningOrdered By: Manpreet Ivy on 09-16-2023 Thin prep Papanicolaou smear with manual screening 9 5-15 [facility] Absolute lymphocyte countOrd ered By: Manpreet Ivy on 08-04-2023 Lymphocytes Auto (Unsp spec) [#/Vol] 2.17 10*3/uL 0.83-4.51 [facility] Basophil percentageOrdered B y: Manpreet Ivy on 08-04-2023 Basophils/100 WBC (Bld) 0.7 % 0-1 [facility] Bilirubin [Mass/Vol] 0.30 mg/dL 0.20-1.00 [facility] Comment on above: For patients on eltr ombopag therapy, use of Dimension [place] TBIL is not recommended. Chloride [Moles/Vol] 101 mmol/L 98-107 [facility] Cholesterol [Mass/Vol] 117 mg/dL <200 [facility] Comment on above: <200 mg/dL Desirable 200-240 mg/dL Borderline >240 mg/dL High Risk Eosinophils/100 WBC (Bld) 1.6 % 0-5 [facility] Glucose [Mass/Vol] 96 mg/dL 74-106 [facility] Neutrophils (Bld) [#/Vol] 4.7 10*3/uL 2.0-7.7 [facility] Neutrophils/100 WBC (Bld) 60.6 % 47-70 [facility] Potassium [Moles/Vol] 3.7 mmol/L 3.5-5.1 [facility] Protein [Mass/Vol] 6.5 g/dL 6.4-8.2 [facility] Sodium [Moles/Vol] 136 mmol/L 136-145 [facility] Triglyceride [Mass/Vol] 179 mg/dL <199 [facility] Comment on above: The drugs N-Acetylcy steine and Metamizole may falsely depress this assay.Serum Triglycerides Reference Interval Normal <150 mg/dL Borderline high 150 - 199 mg/dL High 200 - 499 mg/dL Very High > or = 500 mg/dL WBC (Bld) [#/Vol] 7.7 10*3/uL 4.4-11.0 [facility] Blood erythrocytes count (nu mber/volume)Ordered By: Manpreet Ivy on 08-04-2023 RBC (Bld) [#/Vol] 4.52 10*6/uL 4.2-5.4 [facility] Blood hemoglobin measurement (mass/volume)Ordered By: Manpreet Ivy on 08-04-2023 Hemoglobin (Bld) [Mass/Vol] 12.9 g/dL 12.0-15.0 [facility] Blood lymphocytes/100 leukoc ytesOrdered By: Manpreet Ivy on 08-04-2023 Lymphocytes/100 WBC (Bld) 28.3 % 19-41 [facility] Blood monocytes/100 leukocyt esOrdered By: hui Ivy on 08-04-2023 Monocytes/100 WBC (Bld) 8.5 % 0-10 [facility] Blood platelet mean volumeOr dered By: Manpreet Ivy on 08-04-2023 Platelet mean volume (Bld) [Entitic vol] 10.4 fL 6.2-12.0 [facility] Determination of erythrocyte mean corpuscular volume (MCV)Ordered By: Manpreet Ivy on 08-04-2023 MCV (RBC) [Entitic vol] 88.1 fL 81-99 [facility] Hematocrit Auto (Bld) [Volum e fraction]Ordered By: Manpreet Ivy on 08-04-2023 Hematocrit (Bld) [Volume fraction] 39.8 % 37-47 [facility] Laboratory - Chemistry and C hemistry - challengeOrdered By: Manpreet Ivy on 08-04-2023 ALP [Catalytic activity/Vol] 55 U/L 45-117 [facility] ALT [Catalytic activity/Vol] 18 U/L 13-56 [facility] CO2 [Moles/Vol] 28.0 mmol/L 21.0-32.0 [facility] Globulin (S) [Mass/Vol] 3.0 g/dL 2.2-4.2 [facility] Urea nitrogen/Creatinine [Mass ratio] 13.1 mg/mg 10-20 [facility] Laboratory - Hematology and Cell countsOrdered By: Manpreet Ivy on 08-04-2023 Erythrocyte distribution width (RBC) [Entitic vol] 41.7 fL 35.1-43.9 [facility] Erythrocyte distribution width (RBC) [Ratio] 12.8 % 11.6-14.6 [facility] Immature granulocytes/100 WBC (Bld) 0.300 % 0.0-0.9 [facility] Comment on above: IG% - Immature Granu locytes (promyelocytes, myelocytes and metamyelocytes) > 1% indicates that a LEFT SHIFT is Present. MCH (RBC) [Entitic mass] 28.5 pg 27.0-32.0 [facility] Nucleated RBC/100 WBC (Bld) [Ratio] 0 % 0-5 [facility] MCHC Auto (RBC) [Mass/Vol]Or dered By: Manpreet Ivy on 08-04-2023 MCHC (RBC) [Mass/Vol] 32.4 g/dL 32-36 [facility] No Panel InformationOrdered By: Manpreet Ivy on 08-04-2023 Estimated GFR (MDRD) Amer 69 mL/min >60 [facility] Comment on above: GFR Calc Estimated GFR (MDRD) Non-Af Amer 57 mL/min >60 [facility] Comment on above: Non- GFR Calc Platelets bldOrdered By: Kevin Ivy on 08-04-2023 Platelets (Bld) [#/Vol] 203 10*3/uL 150-450 [facility] Serum or plasma albumin cinthia urement (mass/volume)Ordered By: Manpreet Ivy on 08-04-2023 Albumin [Mass/Vol] 3.5 g/dL 3.2-5.0 [facility] Serum or plasma albumin/glob ulin mass ratioOrdered By: Manpreet Ivy on 08-04-2023 Albumin/Globulin [Mass ratio] 1.2 {ratio} 0.9-2.4 [facility] Serum or plasma calcium cinthia urement (mass/volume)Ordered By: Manpreet Ivy on 08-04-2023 Calcium [Mass/Vol] 9.7 mg/dL 8.5-10.1 [facility] Serum or plasma cholesterol in HDL measurement (mass/volume)Ordered By: Manpreet Ivy on 08-04-2023 Cholesterol in HDL [Mass/Vol] 44 mg/dL >40 [facility] Comment on above: The drugs N-Acetylcy steine and Metamizole may falsely depress this assay. Reference Range HDL <40 mg/dL Low HDL Cholesterol HDL >or= 60 mg/dL High HDL Cholesterol Serum or plasma cholesterol in VLDL measurement (mass/volume)Ordered By: Manpreet Ivy on 08-04-2023 Cholesterol in VLDL [Mass/Vol] 36 mg/dL 5-40 [facility] Serum or plasma creatinine m easurement (mass/volume)Ordered By: Manpreet Ivy on 08-04-2023 Creatinine [Mass/Vol] 0.99 mg/dL 0.55-1.02 [facility] Comment on above: The validity of the calculated GFR & GFRAA in patients over 70 years has not been determined. Clinical correlation is essential. Serum or plasma low density lipoprotein (LDL) cholesterol measurement (mass/volume)Ordered By: Manpreet Ivy on 08-04-2023 Cholesterol in LDL [Mass/Vol] 37 mg/dL 0-130 [facility] Serum or plasma urea nitroge n measurement (mass/volume)Ordered By: Manpreet Ivy on 08-04-2023 Urea nitrogen [Mass/Vol] 13 mg/dL 7-18 [facility] Thin prep Papanicolaou smear with manual screeningOrdered By: Manpreet Ivy on 08-04-2023 Thin prep Papanicolaou smear with manual screening 15 U/L 15-37 [facility] Thin prep Papanicolaou smear with manual screening 7 5-15 [facility] Whole blood hemoglobin A1c/t otal hemoglobin ratio (mass fraction)Ordered By: Manpreet Ivy on 08-04-2023 HbA1c (Bld) [Mass fraction] 7.2 % 3.8-5.6 [facility] Comment on above: Normal < 5.7 % Predi abetic 5.7 - 6.4 % Diabetic >or= 6.5 % Please note range changes. Absolute lymphocyte countOrd ered By: Manpreet Ivy on 06-12-2023 Lymphocytes Auto (Unsp spec) [#/Vol] 2.27 10*3/uL 0.83-4.51 [facility] Basophil percentageOrdered B y: Manpreet Ivy on 06-12-2023 Basophils/100 WBC (Bld) 0.7 % 0-1 [facility] Bilirubin [Mass/Vol] 0.20 mg/dL 0.20-1.00 [facility] Comment on above: For patients on eltr ombopag therapy, use of Dimension [place] TBIL is not recommended. Chloride [Moles/Vol] 104 mmol/L 98-107 [facility] Eosinophils/100 WBC (Bld) 1.8 % 0-5 [facility] Glucose [Mass/Vol] 177 mg/dL 74-106 [facility] Comment on above: Fasting Glucose resu lt greater than or equal to 126 mg/dL suggests DIABETES MELLITUS per A.D.A. criteria. Neutrophils (Bld) [#/Vol] 4.5 10*3/uL 2.0-7.7 [facility] Neutrophils/100 WBC (Bld) 58.8 % 47-70 [facility] Potassium [Moles/Vol] 4.3 mmol/L 3.5-5.1 [facility] Protein [Mass/Vol] 6.4 g/dL 6.4-8.2 [facility] Sodium [Moles/Vol] 137 mmol/L 136-145 [facility] WBC (Bld) [#/Vol] 7.6 10*3/uL 4.4-11.0 [facility] Blood erythrocytes count (nu mber/volume)Ordered By: Manpreet Ivy on 06-12-2023 RBC (Bld) [#/Vol] 4.46 10*6/uL 4.2-5.4 [facility] Blood hemoglobin measurement (mass/volume)Ordered By: Manpreet Ivy on 06-12-2023 Hemoglobin (Bld) [Mass/Vol] 12.5 g/dL 12.0-15.0 [facility] Blood lymphocytes/100 leukoc ytesOrdered By: Manpreet Ivy on 06-12-2023 Lymphocytes/100 WBC (Bld) 30.0 % 19-41 [facility] Blood monocytes/100 leukocyt esOrdered By: hui Ivy on 06-12-2023 Monocytes/100 WBC (Bld) 8.3 % 0-10 [facility] Blood platelet mean volumeOr dered By: Manpreet Ivy on 06-12-2023 Platelet mean volume (Bld) [Entitic vol] 10.6 fL 6.2-12.0 [facility] Determination of erythrocyte mean corpuscular volume (MCV)Ordered By: Manpreet Ivy on 06-12-2023 MCV (RBC) [Entitic vol] 88.3 fL 81-99 [facility] Hematocrit Auto (Bld) [Volum e fraction]Ordered By: Manpreet Ivy on 06-12-2023 Hematocrit (Bld) [Volume fraction] 39.4 % 37-47 [facility] Laboratory - Chemistry and C hemistry - challengeOrdered By: hui Ivy on 06-12-2023 ALP [Catalytic activity/Vol] 80 U/L 45-117 [facility] ALT [Catalytic activity/Vol] 25 U/L 13-56 [facility] CO2 [Moles/Vol] 28.0 mmol/L 21.0-32.0 [facility] Globulin (S) [Mass/Vol] 3.0 g/dL 2.2-4.2 [facility] Urea nitrogen/Creatinine [Mass ratio] 15.5 mg/mg 10-20 [facility] Laboratory - Hematology and Cell countsOrdered By: Manpreet Ivy on 06-12-2023 Erythrocyte distribution width (RBC) [Entitic vol] 42.2 fL 35.1-43.9 [facility] Erythrocyte distribution width (RBC) [Ratio] 13.1 % 11.6-14.6 [facility] Immature granulocytes/100 WBC (Bld) 0.400 % 0.0-0.9 [facility] Comment on above: IG% - Immature Granu locytes (promyelocytes, myelocytes and metamyelocytes) > 1% indicates that a LEFT SHIFT is Present. MCH (RBC) [Entitic mass] 28.0 pg 27.0-32.0 [facility] Nucleated RBC/100 WBC (Bld) [Ratio] 0 % 0-5 [facility] MCHC Auto (RBC) [Mass/Vol]Or dered By: Manpreet Ivy on 06-12-2023 MCHC (RBC) [Mass/Vol] 31.7 g/dL 32-36 [facility] No Panel InformationOrdered By: Manpreet Ivy on 06-12-2023 Estimated GFR (MDRD) Amer 66 mL/min >60 [facility] Comment on above: GFR Calc Estimated GFR (MDRD) Non-Af Amer 54 mL/min >60 [facility] Comment on above: Non- GFR Calc Thyroid Stimulating Hormone (TSH) 2.97 uIU/mL 0.358-3.74 [facility] Platelets bldOrdered By: Kevin Ivy on 06-12-2023 Platelets (Bld) [#/Vol] 191 10*3/uL 150-450 [facility] Serum or plasma albumin cinthia urement (mass/volume)Ordered By: Manpreet Ivy on 06-12-2023 Albumin [Mass/Vol] 3.4 g/dL 3.2-5.0 [facility] Serum or plasma albumin/glob ulin mass ratioOrdered By: Manpreet Ivy on 06-12-2023 Albumin/Globulin [Mass ratio] 1.1 {ratio} 0.9-2.4 [facility] Serum or plasma calcium cinthia urement (mass/volume)Ordered By: Manpreet Ivy on 06-12-2023 Calcium [Mass/Vol] 9.3 mg/dL 8.5-10.1 [facility] Serum or plasma creatinine m easurement (mass/volume)Ordered By: Manpreet Ivy on 06-12-2023 Creatinine [Mass/Vol] 1.03 mg/dL 0.55-1.02 [facility] Comment on above: The validity of the calculated GFR & GFRAA in patients over 70 years has not been determined. Clinical correlation is essential. Serum or plasma urea nitroge n measurement (mass/volume)Ordered By: Manpreet Ivy on 06-12-2023 Urea nitrogen [Mass/Vol] 16 mg/dL 7-18 [facility] Thin prep Papanicolaou smear with manual screeningOrdered By: rogeliodeep gapel Ivy on 06-12-2023 Thin prep Papanicolaou smear with manual screening 16 U/L 15-37 [facility] Thin prep Papanicolaou smear with manual screening 5 5-15 [facility] Absolute lymphocyte countOrd ered By: rogeliodeep gapel Ivy on 05-05-2023 Lymphocytes Auto (Unsp spec) [#/Vol] 2.66 10*3/uL 0.83-4.51 [facility] Basophil percentageOrdered B y: Manpreet Ivy on 05-05-2023 Basophils/100 WBC (Bld) 0.6 % 0-1 [facility] Bilirubin [Mass/Vol] 0.20 mg/dL 0.20-1.00 [facility] Comment on above: For patients on eltr ombopag therapy, use of [facility] [place] TBIL is not recommended. Chloride [Moles/Vol] 102 mmol/L 98-107 [facility] Cholesterol [Mass/Vol] 130 mg/dL <200 [facility] Comment on above: <200 mg/dL Desirable 200-240 mg/dL Borderline >240 mg/dL High Risk Eosinophils/100 WBC (Bld) 2.5 % 0-5 [facility] Glucose [Mass/Vol] 155 mg/dL 74-106 [facility] Comment on above: Fasting Glucose resu lt greater than or equal to 126 mg/dL suggests DIABETES MELLITUS per A.D.A. criteria. Neutrophils (Bld) [#/Vol] 4.8 10*3/uL 2.0-7.7 [facility] Neutrophils/100 WBC (Bld) 57.4 % 47-70 [facility] Potassium [Moles/Vol] 4.0 mmol/L 3.5-5.1 [facility] Protein [Mass/Vol] 6.4 g/dL 6.4-8.2 [facility] Sodium [Moles/Vol] 137 mmol/L 136-145 [facility] Triglyceride [Mass/Vol] 124 mg/dL <199 [facility] Comment on above: The drugs N-Acetylcy steine and Metamizole may falsely depress this assay.Serum Triglycerides Reference Interval Normal <150 mg/dL Borderline high 150 - 199 mg/dL High 200 - 499 mg/dL Very High > or = 500 mg/dL WBC (Bld) [#/Vol] 8.4 10*3/uL 4.4-11.0 [facility] Blood erythrocytes count (nu mber/volume)Ordered By: Manpreet Ivy on 05-05-2023 RBC (Bld) [#/Vol] 4.30 10*6/uL 4.2-5.4 [facility] Blood hemoglobin measurement (mass/volume)Ordered By: Manpreet Iyv on 05-05-2023 Hemoglobin (Bld) [Mass/Vol] 12.1 g/dL 12.0-15.0 [facility] Blood lymphocytes/100 leukoc ytesOrdered By: Efhui Ivy on 05-05-2023 Lymphocytes/100 WBC (Bld) 31.7 % 19-41 [facility] Blood monocytes/100 leukocyt esOrdered By: Efewongbe Ricke on 05-05-2023 Monocytes/100 WBC (Bld) 7.4 % 0-10 [facility] Blood platelet mean volumeOr dered By: Baileyrogelioongbe Biju on 05-05-2023 Platelet mean volume (Bld) [Entitic vol] 10.8 fL 6.2-12.0 [facility] RAMONA [facility]KE ([id number]) 1940 F Date Time Provider Department 05/05/23 HARSH MCNAIR [facility] During your visit today, we recorded the following information about you: Bj Santana LPN 05/05/2023 12:09 PM Signed Daughter calling to let you know pt was admitted into [facility] yesterday 05-04-23. Daughter has 2 questions. 1)WVHL [...] was probably to reduce the risk of [place]; it would be OK to stop this [...] Date Reviewed: 04/17/2023 Reviewed by: Laquita Coulter APRN.CYTOLOGY TEACHER - Fully Assessed Reason for Visit: medication [...] by BJ SANTANA LPN on 05/06/23 Normal [facility] Determination of erythrocyte mean corpuscular volume (MCV)Ordered By: Manpreet Ivy on 05-05-2023 MCV (RBC) [Entitic vol] 89.3 fL 81-99 [facility] Hematocrit Auto (Bld) [Volum e fraction]Ordered By: [facility] Diasjuan jose on 05-05-2023 Hematocrit (Bld) [Volume fraction] 38.4 % 37-47 [facility] Laboratory - Chemistry and C hemistry - challengeOrdered By: [facility] on 05-05-2023 ALP [Catalytic activity/Vol] 63 U/L 45-117 [facility] ALT [Catalytic activity/Vol] 21 U/L 13-56 [facility] CO2 [Moles/Vol] 29.0 mmol/L 21.0-32.0 [facility] Free T4 [Mass/Vol] 0.79 ng/dL 0.76-1.46 [facility] Globulin (S) [Mass/Vol] 2.8 g/dL 2.2-4.2 [facility] Urea nitrogen/Creatinine [Mass ratio] 21.9 mg/mg 10-20 [facility] Laboratory - Hematology and Cell countsOrdered By: [facility] Hospital[facility]an jose on 05-05-2023 Erythrocyte distribution width (RBC) [Entitic vol] 42.4 fL 35.1-43.9 [facility] Erythrocyte distribution width (RBC) [Ratio] 13.0 % 11.6-14.6 [facility] Immature granulocytes/100 WBC (Bld) 0.400 % 0.0-0.9 [facility] Comment on above: IG% - Immature Granu locytes (promyelocytes, myelocytes and metamyelocytes) > 1% indicates that a LEFT SHIFT is Present. MCH (RBC) [Entitic mass] 28.1 pg 27.0-32.0 [facility] Nucleated RBC/100 WBC (Bld) [Ratio] 0 % 0-5 [facility] MCHC Auto (RBC) [Mass/Vol]Or dered By: Manpreet Ivy on 05-05-2023 MCHC (RBC) [Mass/Vol] 31.5 g/dL 32-36 [facility] No Panel InformationOrdered By: Manpreet Ivy on 05-05-2023 Estimated GFR (MDRD) Amer 64 mL/min >60 [facility] Comment on above: GFR Calc Estimated GFR (MDRD) Non-Af Amer 53 mL/min >60 [facility] Comment on above: Non- GFR Calc Thyroid Stimulating Hormone (TSH) 2.94 uIU/mL 0.358-3.74 [facility] Vitamin D 25-Hydroxy 95.3 ng/mL [facility] Comment on above: Vitamin D 25(OH) Sta tus Range Deficiency <20 ng/mL (50nmol/L) Insufficiency 20 - 30 ng/mL (50 - 75 nmol/L) Sufficiency 30 - 100 ng/mL (75 - 250 nmol/L) Toxicity >100 ng/mL (>250 nmol/L) Platelets bldOrdered By: Kevin Ivy on 05-05-2023 Platelets (Bld) [#/Vol] 182 10*3/uL 150-450 [facility] Serum or plasma albumin cinthia urement (mass/volume)Ordered By: Manpreet Ivy on 05-05-2023 Albumin [Mass/Vol] 3.6 g/dL 3.2-5.0 [facility] Serum or plasma albumin/glob ulin mass ratioOrdered By: Manpreet Ivy on 05-05-2023 Albumin/Globulin [Mass ratio] 1.3 {ratio} 0.9-2.4 [facility] Serum or plasma calcium cinthia urement (mass/volume)Ordered By: Manpreet Ivy on 05-05-2023 Calcium [Mass/Vol] 9.2 mg/dL 8.5-10.1 [facility] Serum or plasma cholesterol in HDL measurement (mass/volume)Ordered By: Manpreet Ivy on 05-05-2023 Cholesterol in HDL [Mass/Vol] 57 mg/dL >40 [facility] Comment on above: The drugs N-Acetylcy steine and Metamizole may falsely depress this assay. Reference Range HDL <40 mg/dL Low HDL Cholesterol HDL >or= 60 mg/dL High HDL Cholesterol Serum or plasma cholesterol in VLDL measurement (mass/volume)Ordered By: Manpreet Ivy on 05-05-2023 Cholesterol in VLDL [Mass/Vol] 25 mg/dL 5-40 [facility] Serum or plasma creatinine m easurement (mass/volume)Ordered By: Manpreet Ivy on 05-05-2023 Creatinine [Mass/Vol] 1.05 mg/dL 0.55-1.02 [facility] Comment on above: The validity of the calculated GFR & GFRAA in patients over 70 years has not been determined. Clinical correlation is essential. Serum or plasma low density lipoprotein (LDL) cholesterol measurement (mass/volume)Ordered By: Manpreet Ivy on 05-05-2023 Cholesterol in LDL [Mass/Vol] 48 mg/dL 0-130 [facility] Serum or plasma urea nitroge n measurement (mass/volume)Ordered By: Manpreet Ivy on 05-05-2023 Urea nitrogen [Mass/Vol] 23 mg/dL 7-18 [facility] Thin prep Papanicolaou smear with manual screeningOrdered By: rogeliodeep gapel Ivy on 05-05-2023 Thin prep Papanicolaou smear with manual screening 16 U/L 15-37 [facility] Thin prep Papanicolaou smear with manual screening 6 5-15 [facility] Whole blood hemoglobin A1c/t otal hemoglobin ratio (mass fraction)Ordered By: Manpreet Ivy on 05-05-2023 HbA1c (Bld) [Mass fraction] 7.8 % 3.8-5.6 [facility] Comment on above: Normal < 5.7 % Predi abetic 5.7 - 6.4 % Diabetic >or= 6.5 % Please note range changes. Stas 04-21-2023 [facility] RAM[facility] MI[facility] ([id number]) 1940 F Date Time Provider Department 04/21/23 HARSH MCNAIR During your visit today, we recorded the following information about you: Lynette Adamson DEN 04/21/2023 11:22 AM Signed Talia with [facility] calls to report that pt is looking at moving into their facility for Assisted Living. Talia requested face sheet, HANDP, OV notes. Faxed to: [phone] as reqeusted. Lynette Glenvil DEN Allergies As of Date: 04/21/2023 Noted Allergy Reaction PENICILLINS 03/03/2006 10 - Anaphylaxis IODINE 04/30/2005 5 - Intolerance Date Reviewed: 04/17/2023 Reviewed by: Laquita Coulter APRN.CYTOLOGY TEACHER - Fully Assessed Reason for Visit: Patient [...] TWO TABLETS BY MOUTH WITH DINNER. - [employer] ULTRA TEST test strip TEST BLOOD SUGAR [...] by LYNETTE ADAMSON LPN on 04/21/23 Randy [facility] Soy 04-17-2023 CNOV Office Visit (FAMPWS ) RAMONA MIKE ([id number]) 1940 F Date Time Provider Department 04/17/23 1:20 PM LAQUITA COULTER During your visit today, we recorded the following information about you: Pulse Respiration Blood pressure 78/minute 16/minute 140/76 Laquita Coulter APRN.CNP 04/17/2023 3:34 PM Signed This is a 82 year old female who presents today with: Patient presents with: Follow Up: admission to [facility]. HISTORY OF PRESENT ILLNESS: Ramona Mike is a 82 year old female. Patient presents with: Follow Up: admission to [facility]. Here in the office for follow-up prior to admission to long-term care facility ( [facility]), Daughter present for this visit. Using [...] TAKE TWO TABLETS BY MOUTH WITH DINNER. [employer] ULTRA TEST test strip TEST BLOOD SUGAR [...] Father Jaguar (more content not included)... Normal [facility] CNOVon 02-05-2023 CNOV Office Visit (NREUS2 ) RAMONA MIKE ([id number]) 1940 F Date Time Provider Department 02/05/23 3:00 PM RAMÍREZ LEAVITT NREUS2 During your visit today, we recorded the following information about you: Pulse Blood pressure Weight Height 83/minute 129/57 80.7 kg 1.524 m Ramírez Leavitt PA-C 02/05/2023 3:15 PM Signed CC: SURGICAL SCRUB TECHNICIAN shunt f/u HPI: Mrs Mike comes to clinic today for surgical f/u. She had a SURGICAL SCRUB TECHNICIAN shunt implanted on 04/13/20 with Certas valve. [...] with a history of NPH. She had SURGICAL SCRUB TECHNICIAN shunt implantation on 04/13/20 with Certas valve. [...] reviewed which shows stable enlarged ventricle system, SURGICAL SCRUB TECHNICIAN shunt catheter in place and no acute abnormalities. Follow up in 6-[address] brain Plan: Shunt information Shunt type: Certas Initial settin New settin Ramírez Leavitt PA-C Referring Provider: RAMÍREZ LEAVITT [[id number]] Allergies As of Date: 02/05/2023 Noted Allergy Reaction PENICILLINS 03/03/2006 10 - Anaphylaxis IODINE 04/30/2005 5 - Intolerance Date Reviewed: 02/05/2023 Reviewed by: Jaylene Otero MA - Fully Assessed Primary Visit Diagnosis:Other hydrocephalus (HCC) [G91.8] Order(s):CT BRAIN WO [facility] [[id number]] Order #: [id number] FUTURE Prescriptions as of 02/05/2023 - simvastatin [...] 2, controlled, (more content not included)... Normal [facility] Stas 02-05-2023 [facility] RAMONA MIKE ([id number]) 1940 F Date Time Provider Department 02/05/23 [facility] During your visit today, we recorded the following information about you: Priscilla Wells 02/05/2023 2:01 PM Signed Ramona Mike's daughterRoselyn is calling Harsh Mcnair MD today. [facility] pharmacy advised daughter authorization is needed before they can fill SITagliptin phosphate (JANUVIA) 100 mg tablet A new prescription was sent on 01/29 Please contact pharmacy for clarification and return daughters call at [phone] Nadine Mccollumanderson Prather 02/05/2023 2:16 PM Signed Prior auth needed Lauren Gaspardevin Prather 02/05/2023 2:39 PM Signed Electronic PA submitted Lauren Meiludwin Prather Sakshi Chen PHOTOTYPESETTER OPERATOR 02/06/2023 2:10 PM Signed Insurance has reviewed this and it has been denied. Response is. Date: 02/06/2023 Harsh [address]nair [address] [place] [address] RE: Denial of request for coverage of [...] mouth once daily. Take with food. - [employer] ULTRA TEST test strip TEST BLOOD SUGAR [...] daily. Proble (more content not included)... Normal [facility] CT BRAIN WO IVCONon 02-06-20 CT BRAIN WO IVCON * * *Final Report* * * DATE OF EXAM: Feb 05 2023 1:50PM [facility] [place] [place]RAIN [place] IVCON / [...] were required COMPARISON: Head CT 08/23/2020. RESULT: Regional Branch Manager (topogram) images: No additional findings. Coregistration software utilized for slice by slice comparison in the identical plane. Stable right frontal approach ventriculostomy catheter with surrounding encephalomalacia and mild to moderate ventriculomegaly. Negative for an acute parenchymal insult, hemorrhage, mass effect, and extra-axial collection. Unremarkable osseous structures, orbits, paranasal sinuses, mastoids, and soft tissues. IMPRESSION: Stable ventriculostomy catheter/ventriculomega ly. Box Spinner: PSCB Transcribe Date/Time: Feb 05 2023 3:12P Dictated by : BETY ONTIVEROS MD This examination was interpreted and the report reviewed and electronically signed by: BETY ONTIVEROS MD on Feb 05 2023 3:14PM EST [id number] Normal [facility] CNOVon 01-29-2023 CNOV Office Visit (FAMPWS ) RAMONA MIKE ([id number]) 1940 F Date Time Provider Department 01/29/23 [...] 75 mg daily. Dementia: Following with [facility] Marcelo Mancini CYTOLOGY TEACHER. Is on Aricept 5 mg once daily. [...] mg tab (more content not included)... Normal [facility] 01-28-2023 [facility] Telephone (NREUS2) RAMONA MIKE ([id number]) 1940 F Date Time Provider Department 01/28/23 [...] Status:Closed by ROYA WARD on 01/28/23 Normal [facility] CNOVon 01-27-2023 CNOV Office Visit (UROLMD ) RAMONA MIKE ([id number]) 1940 F Date Time Provider Department 01/27/23 [...] clear with drinking extra fluids. Please call [facility] office at [phone] M-F 8:00 am to 5:00pm With any questions you may have and ask for the Triage Nurse After 5:00 pm or weekends [phone] Thank you 07/13/13 AYANNA Park Jr, MD 01/27/2023 11:07 AM Signed CYSTOSCOPY PROCEDURE NOTE: Ramona Mike is a 82 year old female who presents with urge incontinence for a cystoscopy. Pt ID verified with patient: Yes Fire risk assessment done Procedure verified with patient: Yes Procedure confirmed with physician and fire support specialist: Yes UNIVERSAL PROTOCOL / SAFETY CHECKLIST Procedure [...] 0-10. Patie (more content not included)... Normal [facility] CBC panel Auto (Bld)on 01-21 Erythrocyte distribution width (RBC) [Ratio] 13.1 % Normal 11.5-15.0 [facility] Comment on above: Order Comment: Asiya mancera Type: BLOOD SPECIMENOrdering Facility: [facility] Address: [address] [place] [address] Performed By: #### 5 8410-2 ####[facility] LABIA [id number] [place] [address] [place] Hematocrit (Bld) [Volume fraction] 41.4 % Normal 36.0-46.0 [facility] Comment on above: Order Comment: Asiya mancera Type: BLOOD SPECIMENOrdering Facility: [facility] Address: [address] [place] [address] Performed By: #### 5 8410-2 ####[facility] LABCLIA [id number] [place] [address] [place] Hemoglobin (Bld) [Mass/Vol] 13.4 g/dL Normal 11.5-15.5 [facility] Comment on above: Order Comment: Asiya mancera Type: BLOOD SPECIMENOrdering Facility: [facility] Address: [address] [place] [address] Performed By: #### 5 8410-2 ####[facility] [id number] [place] [address] [place] MCH (RBC) [Entitic mass] 28.5 pg Normal 26.0-34.0 [facility] Comment on above: Order Comment: Speci men Type: BLOOD SPECIMENOrdering Facility: [facility] Address: [address] [place] [address] Performed By: #### 5 8410-2 ####[facility] [id number] [address] [place] MCHC (RBC) [Mass/Vol] 32.4 g/dL Normal 30.5-36.0 [facility] Comment on above: Order Comment: Speci men Type: BLOOD SPECIMENOrdering Facility: [facility] Address: [address] [place] [address] Performed By: #### 5 8410-2 ####[facility] [id number] [address] [place] [facility] MCV (RBC) [Entitic vol] 88.1 fL Normal 80.0-100.0 C [facility] Comment on above: Order Comment: Speci men Type: BLOOD SPECIMENOrdering Facility: [facility] Address: [address] [place] [address] Performed By: #### 5 8410-2 ####[facility] [id number] [address] [place] Nucleated RBC (Bld) [#/Vol] 10*3/uL Normal <0.01 [facility] Comment on above: Order Comment: Speci men Type: BLOOD SPECIMENOrdering Facility: [facility] Address: [address] [place] [address] Performed By: #### 5 8410-2 ####[facility] [id number] [address] [place] Platelet mean volume (Bld) [Entitic vol] 10.9 fL Normal 9.0-12.7 [facility] Comment on above: Order Comment: Speci men Type: BLOOD SPECIMENOrdering Facility: [facility] Address: [address] [place], [place] [address] Performed By: #### 5 8410-2 ####[facility] LABCLIA [id number] [place] [address] [place] Platelets (Bld) [#/Vol] 174 10*3/uL Normal 150-400 [facility] Comment on above: Order Comment: Speci men Type: BLOOD SPECIMENOrdering Facility: [facility] Address: [address] [place], [place] [address] Performed By: #### 5 8410-2 ####[facility] LABCLIA [id number] [place] [address] [place] RBC (Bld) [#/Vol] 4.70 10*6/uL Normal 3.90-5.20 [facility] Comment on above: Order Comment: Speci men Type: BLOOD SPECIMENOrdering Facility: [facility] Address: [address] [place], [place] [address] Performed By: #### 5 8410-2 ####[facility] LABCLIA [id number] [place] [address] [place] WBC (Bld) [#/Vol] 6.43 10*3/uL Normal 3.70-11.00 [facility] Comment on above: Order Comment: Speci men Type: BLOOD SPECIMENOrdering Facility: [facility] Address: [address] [place], [place] [address] Performed By: #### 5 8410-2 ####[facility] LABCLIA [id number] [place] [id number] [place] Comprehensive metabolic 2000 panelon 01-21-2023 Albumin [Mass/Vol] 4.3 g/dL Normal 3.9-4.9 [facility] Comment on above: Order Comment: Speci men Type: BLOOD SPECIMENOrdering Facility: [facility] Address: [address] Performed By: #### 2 4323-8 ####[facility] LABCLIA [id number] [place] [address] [place] ALP [Catalytic activity/Vol] 68 U/L Normal 34-123 [facility] Comment on above: Order Comment: Speci men Type: BLOOD SPECIMENOrdering Facility: [facility] Address: [address] Performed By: #### 2 4323-8 ####[facility] LABCLIA [id number] [address] [place] ALT [Catalytic activity/Vol] 19 U/L Normal 7-38 [facility] Comment on above: Order Comment: Speci men Type: BLOOD SPECIMENOrdering Facility: [facility] Address: [address] Performed By: #### 2 4323-8 ####[facility] LABCLIA [id number] [place] [address] [place] Anion gap [Moles/Vol] 13 mmol/L Normal 9-18 [facility] Comment on above: Order Comment: Speci men Type: BLOOD SPECIMENOrdering Facility: [facility] Address: [address] Performed By: #### 2 4323-8 ####[facility] LABCLIA [id number] [place] [address] [place] AST [Catalytic activity/Vol] 25 U/L Normal 13-35 [facility] Comment on above: Order Comment: Speci men Type: BLOOD SPECIMENOrdering Facility: [facility] Address: [address] Performed By: #### 2 4323-8 ####[facility] LABCLIA [id number] [place] [address] [place] Bilirubin [Mass/Vol] 0.2 mg/dL Normal 0.2-1.3 [facility] Comment on above: Order Comment: Speci men Type: BLOOD SPECIMENOrdering Facility: [facility] Address: [address] [place] [address] Performed By: #### 2 4323-8 ####[facility] LABCLIA [id number] [place] [address] [place] Calcium [Mass/Vol] 10.1 mg/dL Normal 8.5-10.2 [facility] Comment on above: Order Comment: Speci men Type: BLOOD SPECIMENOrdering Facility: [facility] Address: [address] [place] [address] Performed By: #### 2 4323-8 ####[facility] LABCLIA [id number] [place] [address] [place] Chloride [Moles/Vol] 98 mmol/L Normal 97-105 [facility] Comment on above: Order Comment: Speci men Type: BLOOD SPECIMENOrdering Facility: [facility] Address: [address] [place], [place] [address] Performed By: #### 2 4323-8 ####[facility] LABCLIA [id number] [place] [address] [place] CO2 [Moles/Vol] 25 mmol/L Normal 22-30 [facility] Comment on above: Order Comment: Speci men Type: BLOOD SPECIMENOrdering Facility: [facility] Address: [address] [place], [place] [address] Performed By: #### 2 4323-8 ####[facility] LABCLIA [id number] [place] [address] [place] Creatinine [Mass/Vol] 0.88 mg/dL Normal 0.58-0.96 [facility] Comment on above: Order Comment: Speci men Type: BLOOD SPECIMENOrdering Facility: [facility] Address: [address] [place] [address] Performed By: #### 2 4323-8 ####[facility] LABCLIA [id number] [place] [address] [place] ESTIMATED GLOMERULAR FILTRATION RATE 66 mL/min/1.73m??? Normal >=60 [facility] Comment on above: Order Comment: Asiya men Type: BLOOD SPECIMENOrdering Facility: [facility] Address: [address] [place] [address] Result Comment: Adia mated Glomerular Filtration Rate [...] actual GFR. Performed By: #### 2 4323-8 ####[facility] LABCLIA [id number] [place] [address] [place] Glucose [Mass/Vol] 179 mg/dL High 74-99 [facility] Comment on above: Order Comment: Asiya calderon Type: BLOOD SPECIMENOrdering Facility: [facility] Address: [address] [place] [address] Result Comment: The [place] Diabetes Association (ADA) provides guidance for cutoff [...] Standards of Medical Care in Diabetes 2016, [place] [employer]. Diabetes Care. 2016.39(Suppl 1). Performed By: #### 2 4323-8 ####[facility] LABCLIA [id number] [place] [address] [place] Potassium [Moles/Vol] 4.7 mmol/L Normal 3.7-5.1 [facility] Comment on above: Order Comment: Speci men Type: BLOOD SPECIMENOrdering Facility: [facility] Address: [address] [place] [address] Performed By: #### 2 4323-8 ####[facility] LABCLIA [id number] [place] [address] [place] Protein [Mass/Vol] 6.6 g/dL Normal 6.3-8.0 [facility] Comment on above: Order Comment: Speci men Type: BLOOD SPECIMENOrdering Facility: [facility] Address: [address] [place] [address] Performed By: #### 2 4323-8 ####[facility] LABIA [id number] [place] [address] [place] Sodium [Moles/Vol] 136 mmol/L Normal 136-144 [facility] Comment on above: Order Comment: Speci men Type: BLOOD SPECIMENOrdering Facility: [facility] Address: [address] [place] [address] Performed By: #### 2 4323-8 ####[facility] LABCLIA [id number] [place] [address] [place] Urea nitrogen [Mass/Vol] 18 mg/dL Normal 7-21 [facility] Comment on above: Order Comment: Speci men Type: BLOOD SPECIMENOrdering Facility: [facility] Address: [address] [address] Performed By: #### 2 4323-8 ####[facility] LABCLIA [id number] [place] [address] [place] HbA1c (Bld)on 01-21-2023 Average glucose Estimated from glycated hemoglobin (Bld) [Mass/Vol] 166 mg/dL Normal [facility] Comment on above: Order Comment: Asiya mancera Type: BLOOD SPECIMENOrdering Facility: [facility] Address: [address] [place] [address] Result Comment: eAG: (Estimated average glucose) is a calculated value from HgbA1c and is inbound sales representative of the average blood glucose level in the last 2-3 month period. Performed By: #### 5 5454-3 ####[facility] LABCLIA [id number] [place] [address] [place] HbA1c (Bld) [Mass fraction] 7.4 % High 4.3-5.6 [facility] Comment on above: Order Comment: Asiya mancera Type: BLOOD SPECIMENOrdering Facility: [facility] Address: [address] [place] [address] Result Comment: Amer [place] Diabetes Association guidelines indicate that patients with HgbA1c in the range 5.7-6.4% are at increased risk for development of diabetes, and intervention by lifestyle modification may be beneficial. HgbA1c greater or equal to 6.5% is considered diagnostic of diabetes. Performed By: #### 5 5454-3 ####[facility] LABCLIA [id number] [place] [address] [place] Lipid 1996 panelon 3 Cholesterol [Mass/Vol] 144 mg/dL Normal <200 [facility] Comment on above: Order Comment: Asiya mancera Type: BLOOD SPECIMENOrdering Facility: [facility] Address: [address] [place] [address] Result Comment: <200 mg/dL, Desirable 200-239 mg/dL, Borderline high >239 mg/dL, High Performed By: #### 2 4331-1 ####[facility] LABCLIA [id number] [address] [place] Cholesterol in HDL [Mass/Vol] 55 mg/dL Normal >39 [facility] Comment on above: Order Comment: Speci men Type: BLOOD SPECIMENOrdering Facility: [facility] Address: [address] [place] [address] Result Comment: 40-5 9 mg/dL, Acceptable >59 mg/dL, High: Negative risk factor for coronary heart disease <40 mg/dL, Low: Positive risk factor for coronary heart disease Performed By: #### 2 4331-1 ####[facility] LABCLIA [id number] [place] [address] [place] Cholesterol in LDL [Mass/Vol] 52 mg/dL Normal <100 [facility] Comment on above: Order Comment: Speci men Type: BLOOD SPECIMENOrdering Facility: [facility] Address: [address] [place] [address] Result Comment: <100 mg/dL, Optimal 100-129 mg/dL, Near optimal/above optimal 130-159 mg/dL, Borderline high 160-189 mg/dL, High >189 mg/dL, Very high Secondary prevention optimal LDL Cholesterol levels are recommended to be < 70 mg/dL Performed By: #### 2 4331-1 ####[facility] LABCLIA [id number] [address] STATES [facility] Cholesterol in LDL/Cholesterol in HDL [Mass ratio] 0.95 {ratio} Normal <2.54 [facility] Comment on above: Order Comment: Speci men Type: BLOOD SPECIMENOrdering Facility: [facility] Address: [address] [place] [address] Result Comment: Refe rence: 1. National Cholesterol Education Program ATP III Guideline At-A-Glance Quick Desk Reference: National Heart, Lung, and Blood [place]. National Institutes of Health. 2001: NIH Publication No. 01-3305. 2. An International Atherosclerosis Society position paper: global recommendations for the management of dyslipidemia: executive summary, Atherosclerosis. 2014: 232(2):410-413. Performed By: #### 2 4331-1 ####[facility] LABCLIA [id number] [address] [place] Cholesterol in VLDL [Mass/Vol] 37 mg/dL High <30 [facility] Comment on above: Order Comment: Speci men Type: BLOOD SPECIMENOrdering Facility: [facility] Address: [address] Performed By: #### 2 4331-1 ####[facility] LABCLIA [id number] [place] [address] [place] Cholesterol non HDL [Mass/Vol] 89 mg/dL Normal <130 [facility] Comment on above: Order Comment: Speci men Type: BLOOD SPECIMENOrdering Facility: [facility] Address: [address] Result Comment: <130 mg/dL, Optimal 130-159 mg/dL, Near optimal/above optimal 160-189 mg/dL, Borderline high 190-219 mg/dL, High >219 mg/dL, Very high Secondary prevention optimal non HDL Cholesterol levels are recommended to be <100 mg/dL Performed By: #### 2 4331-1 ####[facility] LABCLIA [id number] [place] [address] [place] Cholesterol.total/Beatriz sterol in HDL [Mass ratio] 2.62 {ratio} Normal <5.10 [facility] Comment on above: Order Comment: Speci men Type: BLOOD SPECIMENOrdering Facility: [facility] Address: [address] [place], [place] [address] Performed By: #### 2 4331-1 ####[facility] LABCLIA [id number] [place] [address] [place] FASTING TIME 12 hrs Normal [facility] Comment on above: Order Comment: Speci men Type: BLOOD SPECIMENOrdering Facility: [facility] Address: [address] Performed By: #### 2 4331-1 ####[facility] LABCLIA [id number] [place] [address] [place] Triglyceride [Mass/Vol] 184 mg/dL High <150 [facility] Comment on above: Order Comment: Speci men Type: BLOOD SPECIMENOrdering Facility: [facility] Address: [address] [place] [address] Result Comment: <150 mg/dL, Normal 150-199 mg/dL, Borderline high 200-499 mg/dL, High >499 mg/dL, Very high Performed By: #### 2 4331-1 ####[facility] LABCLIA [id number] [facility] [id number] OF [facility] UA DIP, URINE (POC)on 2022 BILIRUBIN UA (POCT) Negative Negative [facility] CLARITY UA (POCT) Clear [facility] COLOR UA (POCT) Yellow [facility] GLUCOSE UA (POCT) 100 mg/dL Abnormal Negative mg/dL [facility] HEMOGLOBIN/BLOOD UA (POCT) Negative Negative [facility] KETONE UA (POCT) Negative Negative mg/dL [facility] LEUKOCYTES UA (POCT) Negative Negative [facility] NITRITE UA (POCT) Negative Negative [facility] PH UA (POCT) 5.5 4.5 - 8.0 [facility] Protein Ql (U) Negative Negative mg/dL [facility] SPECIFIC GRAVITY UA (POCT) 1.020 1.005 - 1.030 [facility] UROBILINOGEN UA (POCT) 0.2 E.U./dL Alysia l E.U./dL [facility] Glucose Glucometer (BldC) [M ass/Vol]on 02-24-2022 Glucose [Mass/Vol] 203 mg/dL 74-106 [facility] Work Phone: Comment on above: MANAGEMENT OF PATIEN T CARE PER NURSING PROTOCOL Absolute lymphocyte counton 02-23-2022 Lymphocytes Auto (Unsp spec) [#/Vol] 1.93 10*3/uL 0.83-4.51 [facility] Work Phone: Basophil percentageon 2021 Basophils/100 WBC (Bld) 0.4 % 0-1 [facility] Work Phone: Chloride [Moles/Vol] 104 mmol/L 98-107 [facility] Work Phone: Eosinophils/100 WBC (Bld) 1.5 % 0-5 [facility] Work Phone: Glucose [Mass/Vol] 209 mg/dL 74-106 [facility] Work Phone: Comment on above: Glucose result great er than or equal to 200 mg/dLsuggests DIABETES MELLITUS per A.D.A. criteria. Neutrophils (Bld) [#/Vol] 5.6 10*3/uL 2.0-7.7 [facility] Work Phone: Neutrophils/100 WBC (Bld) 66.9 % 47-70 [facility] Work Phone: Potassium [Moles/Vol] 3.6 mmol/L 3.5-5.1 [facility] Work Phone: Sodium [Moles/Vol] 137 mmol/L 136-145 [facility] Work Phone: WBC (Bld) [#/Vol] 8.4 10*3/uL 4.4-11.0 [facility] Work Phone: Blood erythrocytes count (nu mber/volume)on 02-23-2022 RBC (Bld) [#/Vol] 4.85 10*6/uL 4.2-5.4 [facility] Work Phone: Blood hemoglobin measurement (mass/volume)on 02-23-2022 Hemoglobin (Bld) [Mass/Vol] 13.5 g/dL 12.0-15.0 [facility] Work Phone: Blood lymphocytes/100 leukoc yteson 02-23-2022 Lymphocytes/100 WBC (Bld) 22.9 % 19-41 [facility] Work Phone: Blood monocytes/100 leukocyt eson 02-23-2022 Monocytes/100 WBC (Bld) 7.7 % 0-10 [facility] Work Phone: Blood platelet mean volumeon 02-23-2022 Platelet mean volume (Bld) [Entitic vol] 9.9 fL 6.2-12.0 [facility] Work Phone: [phone] Determination of erythrocyte mean corpuscular volume (MCV)on 02-23-2022 MCV (RBC) [Entitic vol] 85.8 fL 81-99 [facility] Work Phone: [phone] Hematocrit Auto (Bld) [Volum e fraction]on 02-23-2022 Hematocrit (Bld) [Volume fraction] 41.6 % 37-47 [facility] Work Phone: [phone] Laboratory - Chemistry and C hemistry - challengeon 02-23-2022 CO2 [Moles/Vol] 26.0 mmol/L 21.0-32.0 [facility] Work Phone: [phone] Urea nitrogen/Creatinine [Mass ratio] 19.2 mg/mg 10-20 [facility] Work Phone: [phone] Laboratory - Hematology and Cell countson 02-23-2022 Erythrocyte distribution width (RBC) [Entitic vol] 41.1 fL 35.1-43.9 [facility] Work Phone: [phone] Erythrocyte distribution width (RBC) [Ratio] 13.2 % 11.6-14.6 [facility] Work Phone: [phone] Immature granulocytes/100 WBC (Bld) 0.600 % 0.0-0.9 [facility] Work Phone: [phone] Comment on above: IG% - Immature Granu locytes (promyelocytes, myelocytes and metamyelocytes) > 1% indicates that a LEFT SHIFT is Present. MCH (RBC) [Entitic mass] 27.8 pg 27.0-32.0 [facility] Work Phone: [phone] Nucleated RBC/100 WBC (Bld) [Ratio] 0 % 0-5 [facility] Work Phone: [phone] MCHC Auto (RBC) [Mass/Vol]on 02-23-2022 MCHC (RBC) [Mass/Vol] 32.5 g/dL 32-36 [facility] Work Phone: [phone] Panel Informationon 02-23 Estimated Creatinine Clearance Calc 31.69 ml/min [facility] Work Phone: Estimated GFR (MDRD) Amer 98 mL/min >60 [facility] Work Phone: Comment on above: GFR Calc Estimated GFR (MDRD) Non-Af Amer 81 mL/min >60 [facility] Work Phone: Comment on above: Non- GFR Calc Platelets bldon 02-23-2022 Platelets (Bld) [#/Vol] 211 10*3/uL 150-450 [facility] Work Phone: Serum or plasma calcium cinthia urement (mass/volume)on 02-23-2022 Calcium [Mass/Vol] 9.6 mg/dL 8.5-10.1 [facility] Work Phone: Serum or plasma creatinine m easurement (mass/volume)on 02-23-2022 Creatinine [Mass/Vol] 0.73 mg/dL 0.55-1.02 [facility] Work Phone: Comment on above: The validity of the calculated GFR & GFRAA in patients over 70 years has not been determined. Clinical correlation is essential. Serum or plasma urea nitroge n measurement (mass/volume)on 02-23-2022 Urea nitrogen [Mass/Vol] 14 mg/dL 7-18 [facility] Work Phone: Thin prep Papanicolaou smear with manual screeningon 02-23-2022 Thin prep Papanicolaou smear with manual screening 7 5-15 [facility] Work Phone: [phone] Basophil percentageon 2021 Basophil percentage 0 SEEN /hpf 0-5 [facility] Work Phone: Basophil percentage 3.0 mg/dL 2.5-4.9 [facility] Work Phone: Bilirubin [Mass/Vol] 0.30 mg/dL 0.20-1.00 [facility] Work Phone: Comment on above: For patients on eltr ombopag therapy, use of Dimension [place] TBIL is not recommended. Protein [Mass/Vol] 6.7 g/dL 6.4-8.2 [facility] Work Phone: [phone] Bilirubin Test strip Ql (U)o n 02-22-2022 Bilirubin Ql (U) Negative Negative [facility] Work Phone: Ketones Test strip Ql (U)on 02-22-2022 Ketones Ql (U) Negative Negative [facility] Work Phone: [phone] Laboratory - Chemistry and C hemistry - challengeon 02-22-2022 ALP [Catalytic activity/Vol] 62 U/L 45-117 [facility] Work Phone: [phone] ALT [Catalytic activity/Vol] 22 U/L 13-56 [facility] Work Phone: [phone] Globulin (S) [Mass/Vol] 3.2 g/dL 2.2-4.2 [facility] Work Phone: [phone] Magnesium [Mass/Vol] 2.1 mg/dL 1.6-2.[address] [facility] [address] [facility] Work Phone: [phone] Mucus LM Ql (Urine sed)on Mucus Ql (Urine sed) 0 SEEN /hpf [facility] Work Phone: [phone] Nitrite Test strip Ql (U)on 02-22-2022 Nitrite Ql (U) Negative Negative [facility] Work Phone: [phone] No Panel Informationon 02-22 Thyroid Stimulating Hormone (TSH) 5.17 uIU/mL 0.358-3.74 [facility] Work Phone: [phone] Troponin I High Sensitivity 10 pg/mL 3.0-54.0 [facility] Work Phone: [phone] Comment on above: Please Note: New Eulalia t Units and Gender Specific Reference Ranges. For more information see Policy Stat Procedure [place] High Sensitivity Troponin (TNIH) and attachments. Protein Test strip Ql (U)on 02-22-2022 Protein Ql (U) Negative Negative [facility] Work Phone: [phone] Serum or plasma albumin cinthia urement (mass/volume)on 02-22-2022 Albumin [Mass/Vol] 3.5 g/dL 3.2-5.0 [facility] Work Phone: Serum or plasma albumin/glob ulin mass ratioon 02-22-2022 Albumin/Globulin [Mass ratio] 1.1 {ratio} 0.9-2.4 [facility] Work Phone: Squamous epithelial cells de tection in urine sediment by light microscopyon 02-22-2022 Epithelial cells.squamous LM Ql (Urine sed) 0 SEEN /hpf 5-10 [facility] Work Phone: Thin prep Papanicolaou smear with manual screeningon 02-22-2022 Thin prep Papanicolaou smear with manual screening 15 U/L 15-37 [facility] Work Phone: Urine blood detectionon 02-05 RBC Ql (U) Negative Negative [facility] Work Phone: RBC Ql (U) 0 SEEN /hpf 0-5 [facility] Work Phone: Urine clarityon 02-22-2022 Clarity (U) Clear Clear [facility] Work Phone: Urine color determinationon 02-22-2022 Color (U) Yellow Yellow [facility] Work Phone: Urine glucose detectionon Glucose Ql (U) 1000 mg/dl Normal [facility] Work Phone: Urine leukocyte esterase det ection by dipstickon 02-22-2022 Leukocyte esterase Test strip Ql (U) Negative Negative [facility] Work Phone: Urine pHon 02-22-2022 pH (U) 8.0 [pH] 5.0 - 8.0 [facility] Work Phone: Urine sediment bacteria coun t by microscopy (number/high power field)on 02-22-2022 Bacteria LM.HPF (Urine sed) [#/Area] 0 /[HPF] None Seen [facility] Work Phone: Urine specific gravity measu rementon 02-22-2022 Specific gravity (U) [Rel density] 1.015 1.002-1.030 [facility] Work Phone: Urobilinogen Auto test strip Ql (U)on 02-22-2022 Urobilinogen Ql (U) Normal mg/dl Normal [facility] Work Phone: Absolute lymphocyte counton 02-21-2022 Lymphocytes Auto (Unsp spec) [#/Vol] 2.45 10*3/uL 0.83-4.51 [facility] Work Phone: Basophil percentageon 2021 Basophils/100 WBC (Bld) 0.7 % 0-1 [facility] Work Phone: Chloride [Moles/Vol] 102 mmol/L 98-107 [facility] Work Phone: Eosinophils/100 WBC (Bld) 2.1 % 0-5 [facility] Work Phone: Glucose [Mass/Vol] 108 mg/dL 74-106 [facility] Work Phone: Comment on above: Fasting Glucose resu lt from 100 to 125 mg/dL suggests IMPAIRED HOMEOSTASIS per A.D.A. criteria. Neutrophils (Bld) [#/Vol] 4.2 10*3/uL 2.0-7.7 [facility] Work Phone: Neutrophils/100 WBC (Bld) 55.5 % 47-70 [facility] Work Phone: Potassium [Moles/Vol] 4.2 mmol/L 3.5-5.1 [facility] Work Phone: Sodium [Moles/Vol] 139 mmol/L 136-145 [facility] Work Phone: WBC (Bld) [#/Vol] 7.6 10*3/uL 4.4-11.0 [facility] Work Phone: Blood erythrocytes count (nu mber/volume)on 02-21-2022 RBC (Bld) [#/Vol] 4.70 10*6/uL 4.2-5.4 [facility] Work Phone: Blood hemoglobin measurement (mass/volume)on 02-21-2022 Hemoglobin (Bld) [Mass/Vol] 13.1 g/dL 12.0-15.0 [facility] Work Phone: Blood lymphocytes/100 leukoc yteson 02-21-2022 Lymphocytes/100 WBC (Bld) 32.4 % 19-41 [facility] Work Phone: Blood monocytes/100 leukocyt eson 02-21-2022 Monocytes/100 WBC (Bld) 8.9 % 0-10 [facility] Work Phone: Blood platelet mean volumeon 02-21-2022 Platelet mean volume (Bld) [Entitic vol] 10.0 fL 6.2-12.0 [facility] Work Phone: Determination of erythrocyte mean corpuscular volume (MCV)on 02-21-2022 MCV (RBC) [Entitic vol] 85.5 fL 81-99 [facility] Work Phone: Glucose Glucometer (BldC) [M ass/Vol]on 02-21-2022 Glucose [Mass/Vol] 119 mg/dL 74-106 [facility] Work Phone: Comment on above: MANAGEMENT OF PATIEN T CARE PER NURSING PROTOCOL Hematocrit Auto (Bld) [Volum e fraction]on 02-21-2022 Hematocrit (Bld) [Volume fraction] 40.2 % 37-47 [facility] Work Phone: Laboratory - Chemistry and C hemistry - challengeon 02-21-2022 CO2 [Moles/Vol] 30.0 mmol/L 21.0-32.0 [facility] Work Phone: Urea nitrogen/Creatinine [Mass ratio] 18.3 mg/mg 10-20 [facility] Work Phone: Laboratory - Hematology and Cell countson 02-21-2022 Erythrocyte distribution width (RBC) [Entitic vol] 41.9 fL 35.1-43.9 [facility] Work Phone: Erythrocyte distribution width (RBC) [Ratio] 13.3 % 11.6-14.6 [facility] Work Phone: Immature granulocytes/100 WBC (Bld) 0.400 % 0.0-0.9 [facility] Work Phone: Comment on above: IG% - Immature Granu locytes (promyelocytes, myelocytes and metamyelocytes) > 1% indicates that a LEFT SHIFT is Present. MCH (RBC) [Entitic mass] 27.9 pg 27.0-32.0 [facility] Work Phone: Nucleated RBC/100 WBC (Bld) [Ratio] 0 % 0-5 [facility] Work Phone: MCHC Auto (RBC) [Mass/Vol]on 02-21-2022 MCHC (RBC) [Mass/Vol] 32.6 g/dL 32-36 [facility] Work Phone: No Panel Informationon 02-21 Estimated Creatinine Clearance Calc 28.95 ml/min [facility] Work Phone: [phone] Estimated GFR (MDRD) Amer 58 mL/min >60 [facility] Work Phone: Comment on above: GFR Calc Estimated GFR (MDRD) Non-Af Amer 48 mL/min >60 [facility] Work Phone: Comment on above: Non- GFR Calc Platelets bldon 02-21-2022 Platelets (Bld) [#/Vol] 217 10*3/uL 150-450 [facility] Work Phone: Serum or plasma calcium cinthia urement (mass/volume)on 02-21-2022 Calcium [Mass/Vol] 9.9 mg/dL 8.5-10.1 [facility] Work Phone: [phone] Serum or plasma creatinine m easurement (mass/volume)on 02-21-2022 Creatinine [Mass/Vol] 1.15 mg/dL 0.55-1.02 [facility] Work Phone: Comment on above: The validity of the calculated GFR & GFRAA in patients over 70 years has not been determined. Clinical correlation is essential. Serum or plasma urea nitroge n measurement (mass/volume)on 02-21-2022 Urea nitrogen [Mass/Vol] 21 mg/dL 18 [facility] Work Phone: Thin prep Papanicolaou smear with manual screeningon 02-21-2022 Thin prep Papanicolaou smear with manual screening 01-19 [facility] Work Phone: XR Chest PA and Lateralon IMPRESSION: No acute radiographic abnormality. Box Spinner: PSCB Transcribe Date/Time: Oct 09 2021 12:51P Dictated by : LEWIS HENSLEY MD This examination was interpreted and the report reviewed and electronically signed by: LEWIS HENSLEY MD on Oct 09 2021 12:53PM [facility] DIVISION OF RADIOLOGY * * *Final Report* [...] spine. IMPRESSION IMPRESSION: No acute radiographic abnormality. Box Spinner: PSCB Transcribe Date/Time: Oct 09 2021 12:51P Dictated by : LEWIS HENSLEY MD This examination was interpreted and the report reviewed and electronically signed by: LEWIS HENSLEY MD on Oct 09 2021 12:53PM EST [facility] Radiology Study observation (narrative) [facility] XR Chest PA and LateralOrder ed By: [facility]cf Provider on 10-09-2021 [facility] Absolute lymphocyte counton 09-04-2021 Lymphocytes Auto (Unsp spec) [#/Vol] 0.84 10*3/uL 0.83-4.51 [facility] Work Phone: Basophil percentageon 2020 Chloride [Moles/Vol] 98 mmol/L 98-107 [facility] Work Phone: [phone] Eosinophils/100 WBC (Bld) 0.7 % 0-5 [facility] Work Phone: [phone] Glucose [Mass/Vol] 200 mg/dL 74-106 [facility] Work Phone: Comment on above: Glucose result great er than or equal to 200 mg/dLsuggests DIABETES MELLITUS per A.D.A. criteria.Please note revised GLUCOSE reference range effective 2017. Neutrophils (Bld) [#/Vol] 5.3 10*3/uL 2.0-7.7 [facility] Work Phone: Potassium [Moles/Vol] 4.0 mmol/L 3.5-5.1 [facility] Work Phone: [phone] Sodium [Moles/Vol] 134 mmol/L 136-145 [facility] Work Phone: [phone] WBC (Bld) [#/Vol] 7.2 10*3/uL 4.4-11.0 [facility] Work Phone: [phone] Blood erythrocytes count (nu mber/volume)on 09-04-2021 RBC (Bld) [#/Vol] 4.65 10*6/uL 4.2-5.4 [facility] Work Phone: [phone] Blood hemoglobin measurement (mass/volume)on 09-04-2021 Hemoglobin (Bld) [Mass/Vol] 13.0 g/dL 12.0-15.0 [facility] Work Phone: [phone] Blood lymphocytes/100 leukoc yteson 09-04-2021 Lymphocytes/100 WBC (Bld) 11.7 % 19-41 [facility] Work Phone: [phone] Blood monocytes/100 leukocyt eson 09-04-2021 Monocytes/100 WBC (Bld) 11.6 % 0-10 [facility] Work Phone: [phone] Blood platelet mean volumeon 09-04-2021 Platelet mean volume (Bld) [Entitic vol] 10.2 fL 6.2-12.0 [facility] Work Phone: [phone] Determination of erythrocyte mean corpuscular volume (MCV)on 09-04-2021 MCV (RBC) [Entitic vol] 86.0 fL 81-99 [facility] Work Phone: [phone] Hematocrit Auto (Bld) [Volum e fraction]on 09-04-2021 Hematocrit (Bld) [Volume fraction] 40.0 % 37-47 [facility] Work Phone: [phone] Laboratory - Chemistry and C hemistry - challengeon 09-04-2021 CO2 [Moles/Vol] 28.0 mmol/L 21.0-32.0 [facility] Work Phone: [phone] Urea nitrogen/Creatinine [Mass ratio] 17.1 mg/mg 10-20 [facility] Work Phone: Laboratory - Hematology and Cell countson 09-04-2021 Basophils/100 WBC (Unsp spec) 0.3 % 0-1 [facility] Work Phone: [phone] Erythrocyte distribution width (RBC) [Entitic vol] 40.7 fL 35.1-43.9 [facility] Work Phone: [phone] Erythrocyte distribution width (RBC) [Ratio] 13.1 % 11.6-14.6 [facility] Work Phone: [phone] Immature granulocytes/100 WBC (Bld) 1.500 % 0.0-0.9 [facility] Work Phone: [phone] Comment on above: IG% - Immature Granu locytes (promyelocytes, myelocytes and metamyelocytes) > 1% indicates that a LEFT SHIFT is Present. MCH (RBC) [Entitic mass] 28.0 pg 27.0-32.0 [facility] Work Phone: [phone] Neutrophils/100 WBC (Bld) 74.2 % 47-70 [facility] Work Phone: [phone] Nucleated RBC/100 WBC (Bld) [Ratio] 0 % 0-5 [facility] Work Phone: [phone] MCHC Auto (RBC) [Mass/Vol]on 09-04-2021 MCHC (RBC) [Mass/Vol] 32.5 g/dL 32-36 [facility] Work Phone: No Panel Informationon 09-04 SARS-CoV-2 Antigen (Rapid) SARS-CoV-2 (COVID 19) [facility] Work Phone: [phone] Estimated Creatinine Clearance Calc 31.69 ml/min [facility] Work Phone: [phone] Estimated GFR (MDRD) Amer 69 mL/min >60 [facility] Work Phone: Comment on above: GFR Calc Estimated GFR (MDRD) Non-Af Amer 57 mL/min >60 [facility] Work Phone: [phone] Comment on above: Non- GFR Calc Platelets bldon 09-04-2021 Platelets (Bld) [#/Vol] 158 10*3/uL 150-450 [facility] Work Phone: Serum or plasma calcium cinthia urement (mass/volume)on 09-04-2021 Calcium [Mass/Vol] 9.7 mg/dL 8.5-10.1 [facility] Work Phone: Serum or plasma creatinine m easurement (mass/volume)on 09-04-2021 Creatinine [Mass/Vol] 1.00 mg/dL 0.55-1.02 [facility] Work Phone: Comment on above: The validity of the calculated GFR & GFRAA in patients over 70 years has not been determined. Clinical correlation is essential. Serum or plasma urea nitroge n measurement (mass/volume)on 09-04-2021 Urea nitrogen [Mass/Vol] 17 mg/dL 7-18 [facility] Work Phone: Thin prep Papanicolaou smear with manual screeningon 09-04-2021 Thin prep Papanicolaou smear with manual screening 8 5-15 [facility] Work Phone: XR Chest PA and Lateralon IMPRESSION: Streaky opacity in the left lung base may be related to atelectasis or possibly pneumonia in the correct clinical setting. Minimal blunting of the costophrenic angles may be related to trace effusions or pleural thickening. Box Spinner: PSCB Transcribe Date/Time: Sep 03 2021 3:30P Dictated by : JOVITA ARROYO MD This examination was interpreted and the report reviewed and electronically signed by: JOVITA ARROYO MD on Sep 03 2021 3:33PM [facility] DIVISION OF RADIOLOGY * * *Final Report* [...] RESULT: Lines, tubes, and devices: Partially imaged SURGICAL SCRUB TECHNICIAN shunt catheter projects over the central chest. Lungs and pleura: Streaky opacity in the left lung base. Minimal blunting of costophrenic angles. No pneumothorax. Cardiomediastinal silhouette: Normal cardiomediastinal silhouette. Bones and soft tissues: Degenerative changes are present within the thoracic spine. DIVISION OF RADIOLOGY Provider, Edelmira weston [place] - 09/03/2021 * * *Final Report* * * DATE OF EXAM: Sep 03 2021 3:27PM WOX [id number] - XR CHEST 2V FRONTAL/LAT / PROCEDURE REASON: Cough * * * * Physician Interpretation * * * * EXAMINATION: CHEST RADIOGRAPH (2 VIEW FRONTAL & LATERAL) CLINICAL HISTORY: Cough MQ: [id number] EXAM DATE/TIME: 09/03/2021 3:27 PM COMPARISON: 04/13/2020 RESULT: Lines, tubes, and devices: Partially imaged SURGICAL SCRUB TECHNICIAN shunt catheter projects over the central chest. [...] related to trace effusions or pleural thickening. Box Spinner: PSCB Transcribe Date/Time: Sep 03 2021 3:30P Dictated by : JOVITA ARROYO MD This examination was interpreted and the report reviewed and electronically signed by: JOVITA ARROYO MD on Sep 03 2021 3:33PM EST [facility] Radiology Study observation (narrative) Cami Villanueva XR Chest PA and LateralOrder ed By: [facility] Provider on 09-03-2021 [facility] Vital Signs Date Time Vital Sign Value Performing Clinician Abram caputo 04-17-2023 13:12-0400 Diastolic blood pressure 76 mm[Hg] Laquita Coulter APRN.CNP Work Phone: [facility] 04-17-2023 13:12-0400 Heart rate 78 /min Laquita Curielhof CLINICAL RESEARCH ANALYST.CYTOLOGY TEACHER Work Phone: [facility] 04-17-2023 13:12-0400 Respiratory rate 16 /min Laquita Curielhof CLINICAL RESEARCH ANALYST.CYTOLOGY TEACHER Work Phone: [facility] 04-17-2023 13:12-0400 SaO2% (BldA) [Mass fraction] 97 % Laquita Curielhof CLINICAL RESEARCH ANALYST.CYTOLOGY TEACHER Work Phone: [facility] 04-17-2023 13:12-0400 Systolic blood pressure 140 mm[Hg] Laquita Curielhof CLINICAL RESEARCH ANALYST.CYTOLOGY TEACHER Work Phone: [facility] 02-05-2023 14:50-0400 Body height 152.4 cm Ramírez Schwieterman PA-C Work Phone: [facility] 02-05-2023 14:50-0400 Body weight 80.74 kg Ramírez Schwieterman PA-C Work Phone: [facility] 02-05-2023 14:50-0400 Diastolic blood pressure 57 mm[Hg] Ramírez Schwieterman PA-C Work Phone: [facility] 02-05-2023 14:50-0400 Heart rate 83 /min Ramírez Schwieterman PA-C Work Phone: [facility] 02-05-2023 14:50-0400 SaO2% (BldA) [Mass fraction] 98 % Ramírez Schwieterman PA-C Work Phone: [facility] 02-05-2023 14:50-0400 Systolic blood pressure 129 mm[Hg] Ramírez Schwieterman PA-C Work Phone: [facility] 08-06-2022 11:25-0500 Body height 151.1 cm Vanessa Frye MD Work Phone: [facility] 08-06-2022 11:25-0500 Body weight 79.06 kg Vanessa Frye MD Work Phone: [facility] 08-06-2022 11:25-0500 Diastolic blood pressure 80 mm[Hg] Vanessa Frye MD Work Phone: [facility] 08-06-2022 11:25-0500 Systolic blood pressure 118 mm[Hg] Vanessa Frye MD Work Phone: [facility] 07-30-2022 14:18-0500 Body weight 78.47 kg Harsh Mcnair MD Work Phone: [facility] 07-30-2022 14:18-0500 Diastolic blood pressure 76 mm[Hg] Harsh Mcnair MD Work Phone: [facility] 07-30-2022 14:18-0500 Heart rate 74 /min Harsh Mcnair MD Work Phone: [facility] 07-30-2022 14:18-0500 Respiratory rate 16 /min Harsh Mcnair MD Work Phone: [facility] 07-30-2022 14:18-0500 Systolic blood pressure 124 mm[Hg] Harsh Mcnair MD Work Phone: [facility] 03-06-2022 09:39-0400 Body height 152.4 cm Ramírez Schwieterman PA-C Work Phone: [facility] 03-06-2022 09:39-0400 Body weight 77.56 kg Ramírez Schwieterman PA-C Work Phone: [facility] 03-06-2022 09:39-0400 Diastolic blood pressure 56 mm[Hg] Ramírez Schwieterman PA-C Work Phone: [facility] 03-06-2022 09:39-0400 Heart rate 89 /min Ramírez Schwieterman PA-C Work Phone: [facility] 03-06-2022 09:39-0400 SaO2% (BldA) [Mass fraction] 95 % Ramírez Schwieterman PA-C Work Phone: [facility] 03-06-2022 09:39-0400 Systolic blood pressure 124 mm[Hg] Ramírez Leavitt PA-C Work Phone: [facility] 03-03-2022 14:29-0400 Diastolic blood pressure 64 mm[Hg] Harsh Mcnair MD Work Phone: [facility] 03-03-2022 14:29-0400 Heart rate 84 /min Harsh Mcnair MD Work Phone: [facility] 03-03-2022 14:29-0400 Respiratory rate 16 /min Harsh Mcnair MD Work Phone: [facility] 03-03-2022 14:29-0400 Systolic blood pressure 120 mm[Hg] Harsh Mcnair MD Work Phone: [facility] 02-24-2022 14:59-0400 Heart rate 86 /min Dr. Jesus Pete Work Phone: [facility] Work Phone: 02-24-2022 14:42-0400 SaO2% (BldA) [Mass fraction] 98 % Dr. Jesus Pete Work Phone: [facility] Work Phone: 02-24-2022 14:40-0400 Body temperature 97.5 [degF] Dr. Jesus Pete Work Phone: [facility] Work Phone: 02-24-2022 14:40-0400 Diastolic blood pressure 74 mm[Hg] Dr. Jesus Pete Work Phone: [facility] Work Phone: 02-24-2022 14:40-0400 Respiratory rate 16 /min Dr. Jesus Pete Work Phone: [facility] Work Phone: 02-24-2022 14:40-0400 Systolic blood pressure 150 mm[Hg] Dr. Jesus Pete Work Phone: [facility] Work Phone: 02-23-2022 22:19-0400 Inhaled oxygen concentration 21 % Dr. Jesus Pete Work Phone: [facility] Work Phone: 02-21-2022 23:13-0400 Body height 152.[address] Jesus Pete Work Phone: [facility] Work Phone: 02-21-2022 23:13-0400 Body mass index (BMI) [Ratio] 35.2 kg/m2 Dr. Jesus Pete Work Phone: [facility] Work Phone: 02-21-2022 23:13-0400 Body weight 81.[address] Jesus Pete Work Phone: [facility] Work Phone: 02-21-2022 22:04-0400 Body temperature 98 [degF] [facility] Work Phone: 02-21-2022 22:04-0400 Diastolic blood pressure 78 mm[Hg] [facility] Work Phone: 02-21-2022 22:04-0400 Heart rate 76 /min [facility] Work Phone: 02-21-2022 22:04-0400 Respiratory rate 20 /min [facility] Work Phone: 02-21-2022 22:04-0400 SaO2% (BldA) [Mass fraction] 93 % [facility] Work Phone: 02-21-2022 22:04-0400 Systolic blood pressure 159 mm[Hg] [facility] Work Phone: 02-21-2022 17:50-0400 Body height 154.94 cm [facility] Work Phone: 02-21-2022 17:50-0400 Body mass index (BMI) [Ratio] 32.1 kg/m2 [facility] Work Phone: 02-21-2022 17:50-0400 Body weight 77.11 kg [facility] Work Phone: 01-22-2022 12:08-0400 Body weight 78.38 kg Harsh Mcnair MD Work Phone: [facility] 01-22-2022 12:08-0400 Diastolic blood pressure 82 mm[Hg] Harsh Mcnair MD Work Phone: [facility] 01-22-2022 12:08-0400 Heart rate 78 /min Harsh Mcnair MD Work Phone: [facility] 01-22-2022 12:08-0400 Respiratory rate 16 /min Harsh Mcnair MD Work Phone: [facility] 01-22-2022 12:08-0400 Systolic blood pressure 126 mm[Hg] Harsh Mcnair MD Work Phone: [facility] 09-06-2021 16:16-0500 Body temperature 98.4 [degF] [facility] Work Phone: 09-06-2021 16:16-0500 Diastolic blood pressure 70 mm[Hg] [facility] Work Phone: 09-06-2021 16:16-0500 Heart rate 78 /min [facility] Work Phone: 09-06-2021 16:16-0500 Respiratory rate 16 /min [facility] Work Phone: 09-06-2021 16:16-0500 SaO2% (BldA) [Mass fraction] 95 % [facility] Work Phone: 09-06-2021 16:16-0500 Systolic blood pressure 125 mm[Hg] [facility] Work Phone: 09-06-2021 14:58-0500 Body height 152.4 cm [facility] Work Phone: 09-06-2021 14:58-0500 Body mass index (BMI) [Ratio] 29.2 kg/m2 [facility] Work Phone: 09-06-2021 14:58-0500 Body weight 68.03 kg [facility] Work Phone: 09-04-2021 13:03-0500 Diastolic blood pressure 74 mm[Hg] [facility] Work Phone: 09-04-2021 13:03-0500 Heart rate 81 /min [facility] Work Phone: 09-04-2021 13:03-0500 Respiratory rate 21 /min [facility] Work Phone: 09-04-2021 13:03-0500 SaO2% (BldA) [Mass fraction] 97 % [facility] Work Phone: 09-04-2021 13:03-0500 Systolic blood pressure 137 mm[Hg] [facility] Work Phone: 09-04-2021 10:04-0500 Body mass index (BMI) [Ratio] 33.7 kg/m2 [facility] Work Phone: 09-04-2021 10:04-0500 Body temperature 97.9 [degF] [facility] Work Phone: 09-04-2021 10:04-0500 Body weight 78.47 kg [facility] Work Phone: Encounters Encounter Date Encounter Type Care Provider Facility Start: 04-10-2025 End: 04-10-[address] Harsh Mcnair MD Work Phone: -[facility] Start: 04-10-2025 End: 04-10-2025 Patient encounter procedure Kathya JAIMES -[facility] Work Phone: Start: 02-16-2025 End: 02-16-[address] Harsh Mcnair MD Work Phone: -[facility] Start: 02-16-2025 End: 02-16-2025 Patient encounter procedure Kathya JAIMES -[facility] Work Phone: Start: 02-01-2025 End: 02-01-[address] Harsh Mcnair MD Work Phone: [facility] Work Phone: Start: 02-01-2025 End: 02-01-2025 Patient encounter procedure Kathya Underwood SALES REPRESENTATIVE JEWELRY-C -[facility] Work Phone: Start: 01-31-2025 ambulatory Harsh Mcnair Facilit y:[facility] Start: 01-31-2025 Registered Referred Manpreet Ivy MD -[facility] Start: 11-02-2024 End: 11-02-[address] Harsh Mcnair MD Work Phone: [facility] Work Phone: Start: 11-02-2024 End: 11-02-2024 Departed Referred Manpreet Ivy MD -[facility] Start: 11-02-2024 End: 11-02-2024 ambulatory Harsh Mcnair Facility:[facility] Start: 08-02-2024 End: 08-02-2024 ambulatory Harsh Mcnair Facility:[facility] Start: 05-03-2024 ambulatory Harsh Mcnair Facilit y:[facility] Start: 04-26-2024 End: 04-26-2024 ambulatory Manpreet Ivy Facility:[facility] Start: 01-14-2024 Telephone encounter Harsh patel MD Work Phone: [facility] [place] Comment on above: Forms ([employer]) Start: 11-03-2023 End: 11-03-[address] Harsh Mcnair Work Phone: [facility] Work Phone: Start: 11-03-2023 End: 11-03-[address] Harsh Mcnair Work Phone: [facility] Start: 09-24-2023 End: 09-24-2023 ambulatory [facility] Facility:[facility] Start: 09-16-2023 End: 09-16-[address] Harsh Mcnair Work Phone: [facility] Work Phone: Start: 09-16-2023 End: 09-16-[address] Harsh Mcnair Work Phone: [facility] Start: 09-09-2023 End: 09-09-[address] Harsh Mcnair Work Phone: [facility] Work Phone: Start: 08-04-2023 End: 08-04-[address] Harsh Mcnair Work Phone: [facility] Work Phone: Start: 08-04-2023 End: 08-04-[address] Harsh Mcnair Work Phone: [facility] Start: 06-12-2023 End: 06-12-2023 ambulatory [facility] Work Phone: Start: 06-12-2023 End: 06-12-2023 Departed Referred [facility] Start: 05-29-2023 End: 05-29-[address] Harsh Mcnair Work Phone: [facility] Work Phone: Start: 05-05-2023 Telephone encounter Harsh patel MD Work Phone: [facility] Comment on above: medication quesitons Start: 05-05-2023 End: 05-05-2023 Departed Referred [facility] Start: 04-21-2023 Telephone encounter Harsh patel MD Work Phone: [facility] Comment on above: Patient Update Start: 04-17-2023 End: 04-17-2023 ambulatory [facility] Facility:[facility] Start: 04-17-2023 End: 04-17-2023 Patient encounter procedure Laquita Coulter CYTOLOGY TEACHER Work Phone: [facility] [place] Comment on above: 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) (Primary Dx); Controlled type 2 diabetes mellitus without complication, without long-term current use of insulin (HCC); Balance problem; Hyperlipidemia, unspecified hyperlipidemia type; Chronic constipation; Female stress incontinence; Cervical spondylosis; Depressive disorder Start: 04-02-2023 Refill Harsh sierra MD Work Phone: [facility] [place] Comment on above: Refill Request Start: 02-05-2023 End: 02-05-2023 Telemedicine consultation with patient Marcelo Mancini CYTOLOGY TEACHER Work Phone: [facility] Start: 02-05-2023 End: 02-06-2023 ambulatory RAMÍREZ LEAVITT Facility:[facility] Start: 02-05-2023 End: 02-05-2023 Patient encounter procedure Ramírez Leavitt PAFelipeC Work Phone: [facility] Comment on above: Other hydrocephalus (HCC) (Primary Dx) 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) (Primary Dx); NPH (normal pressure hydrocephalus) (HCC); S/P SURGICAL SCRUB TECHNICIAN shunt; Major depressive disorder, recurrent, in partial remission (HCC); Female stress incontinence Start: 02-05-2023 Telephone encounter Harsh patel MD Work Phone: [facility] Comment on above: Medication Problem Start: 02-05-2023 End: 02-05-2023 Subsequent hospital visit by physician Ct 2 Main Qb (I-Stat) Radiology Comment on above: Other hydrocephalus (HCC) [G91.8] Start: 02-03-2023 Refill Harsh sierra MD Work Phone: [facility] [place] Comment on above: Refill Request Start: 01-29-2023 End: 01-29-2023 ambulatory HARSH MCNAIR Facility:[facility] Start: 01-27-2023 End: 01-27-2023 ambulatory KENNETH PARK Facility:[facility] Start: 01-21-2023 End: 01-22-2023 ambulatory HARSH MCNAIR Facility:[facility] Start: 01-15-2023 Telephone encounter Harsh patel MD Work Phone: [facility] Comment on above: Forms Refill Request Start: 01-13-2023 Refill Zaheer MILES RN.CYTOLOGY TEACHER Work Phone: [facility] Comment on above: Refill Request Start: 01-13-2023 Telephone encounter Harsh patel MD Work Phone: [facility] Comment on above: Patient Question Start: 01-07-2023 End: 01-07-2023 Patient encounter procedure Cristine Puri CLINICAL RESEARCH ANALYST.CYTOLOGY TEACHER Work Phone: Urology Comment on above: Urine retention (Neena maegan Dx); Mixed stress and urge urinary incontinence; Vascular parkinsonism (HCC) Start: 12-24-2022 Telephone encounter Harsh patel MD Work Phone: [facility] Comment on above: Urine problem Start: 10-21-2022 Refill Zaheer MILES RN.CYTOLOGY TEACHER Work Phone: [facility] Comment on above: Refill Request; Refi ll Request Start: 10-14-2022 Telephone encounter Harsh patel MD Work Phone: [facility] Comment on above: Constipation Start: 10-01-2022 Orders Only Marcelo merino APRN.CYTOLOGY TEACHER Work Phone: Neurology Comment on above: Female stress incont inence (Primary Dx) Start: 10-01-2022 Refill Marcelo merino APRN.CYTOLOGY TEACHER Work Phone: Neurology Comment on above: Med Change Request Start: 09-26-2022 ambulatory Marcelo merino APRN.CYTOLOGY TEACHER Work Phone: Neurology Comment on above: plan we discussed to day Start: 09-26-2022 E-mail encounter fro m caregiver Marcelo Mancini APRN.CYTOLOGY TEACHER Work Phone: [facility] Start: 09-17-2022 Telephone encounter Harsh patel MD Work Phone: [facility] [place] Comment on above: Medication Question Start: [...] procedure Harsh Mcnair MD Work Phone: [facility] [place] Comment on above: Hyperlipidemia, unsp ecified hyperlipidemia type (Primary Dx); Essential hypertension, benign; Female stress incontinence; Controlled type 2 diabetes mellitus without complication, without long-term current use of insulin (HCC); Depressive disorder; NPH (normal pressure hydrocephalus) (HCC); Dementia without behavioral disturbance, psychotic disturbance, mood disturbance, or anxiety, unspecified dementia severity, unspecified dementia type (HCC) Start: 07-30-2022 Telephone encounter [facility] Comment on above: Appointment ([facility] ut appointment change per email) Start: 07-22-2022 Telephone encounter Harsh patel MD Work Phone: [facility] [place] Comment on above: Vomiting & Diarrhea Start: 07-15-2022 Telephone encounter Harsh patel MD Work Phone: [facility] [place] Comment on above: Medication Problem; Appointment Start: 07-11-2022 End: 07-11-2022 Patient encounter procedure Brianne Wade PhD Work Phone: Neuropyschology Comment on above: Major neurocognitive disorder (HCC) (Primary Dx); NPH (normal pressure hydrocephalus) (HCC); Controlled type 2 diabetes mellitus without complication, without long-term current use of insulin (HCC); Depression, unspecified depression type Start: 06-07-2022 End: 06-07-2022 ambulatory [facility] [place] Work Phone: [facility] [place] Start: 05-26-2022 ambulatory Lorraine Porter APRN.CNP Work Phone: Neurology Comment on above: thank you Start: 03-06-2022 Chart abstracting Roya Ward Research Coordinator Work Phone: [facility] Start: 03-06-2022 End: 03-06-2022 Patient encounter procedure Ramírez Leavitt PA-C Work Phone: [facility] Comment on above: Other hydrocephalus (HCC) Start: 03-03-2022 End: 03-03-2022 ambulatory Collins Mendoza MD Work Phone: [facility] Comment on above: NPH (normal pressure hydrocephalus) (HCC) (Primary Dx); Dehydration; Adverse effects of medication, initial encounter Start: 03-03-2022 End: 03-03-2022 Telemedicine consultation with patient Collins Mendoza MD Work Phone: [facility] Start: 03-03-2022 End: 03-03-2022 Patient encounter procedure Harsh Mcnair MD Work Phone: [facility] [place] Comment on above: Hospital discharge f ollow-up (Primary Dx); Orthostatic hypertension; Nausea and vomiting, unspecified vomiting type; Cervical spondylosis; Neural foraminal stenosis of cervical spine; Bilateral hand numbness; Vascular parkinsonism (HCC) Start: 02-28-2022 Telephone encounter Harsh patel MD Work Phone: [facility] [place] Comment on above: Patient Update; FYI- No Action Needed Start: 02-26-2022 Orders Only David Dorsey MD Work Phone: [facility] Comment on above: S/P SURGICAL SCRUB TECHNICIAN shunt (Primar y Dx); Other hydrocephalus (HCC) PT Plan of Care Start: 02-25-2022 ambulatory Glory Brasher RN [facility] [place] Comment on above: Patient Outreach Start: 02-25-2022 Telephone encounter Harsh patel MD Work Phone: [facility] Comment on above: Patient Outreach Patient Question/Tere nt Follow Up Start: 02-24-2022 Telephone encounter Harsh patel MD Work Phone: [facility] Comment on above: Home Care (Orders) Start: 02-24-2022 Non-patient / Non-visit Dr. Dung Pete Work Phone: [facility] Start: 02-23-2022 Non-patient / Non-visit Dr. Dung Pete Work Phone: [facility] Start: 02-22-2022 Non-patient / Non-visit Dr. Dung Pete Work Phone: [facility] Start: 02-21-2022 End: 02-24-2022 Evaluation and management of inpatient [facility] Care [facility] Start: 02-21-2022 Telephone encounter Harsh patel MD Work Phone: [facility] Comment on above: Patient Update Start: 02-19-2022 Telephone encounter Harsh patel MD Work Phone: [facility] Comment on above: Forms Start: 01-22-2022 End: 01-22-2022 Patient encounter procedure Harsh Mcnair MD Work Phone: [facility] Comment on above: Controlled type 2 di abetes mellitus without complication, without long-term current use of insulin (HCC) (Primary Dx); Hyperlipidemia, unspecified hyperlipidemia type; Depressive disorder; Essential hypertension, benign; Memory difficulties; Female stress incontinence Start: 01-06-2022 Refill Harsh sierra MD Work Phone: [facility] Comment on above: Refill Request Start: 10-09-2021 End: 10-09-2021 Subsequent hospital visit by physician Xr [facility] Work Phone: Radiology Comment on above: COVID-19 [U07.1] Start: 09-06-2021 End: 09-06-2021 Patient encounter procedure [facility] 3 Outp Start: 09-04-2021 End: 09-04-2021 Emergency department patient visit [facility]Emergency Department Start: 09-03-2021 End: 09-03-2021 Subsequent hospital visit by physician Xr [facility] Work Phone: Radiology Comment on above: Cough [R05.9] Start: 08-28-2021 Patient encounter procedure [facility]-Outpatient Breast Imaging Procedures Date Procedure Procedure Detail Performing Clinician Start: 02-05-2023 Ct head/brain w/o contrast material Ramírez Leavitt PA-C Work Phone: Start: 01-07-2023 Urnls dip stick/tabl et rgnt auto w/o microscopy Cristine Puri CLINICAL RESEARCH ANALYST.CYTOLOGY TEACHER Work Phone: Start: 06-07-2022 INFLUENZA SEASONAL QUADRIVALENT HIGH DOSE AGE 65+ Mitchell Ralph DO Work Phone: Start: 02-21-2022 Radiographic imaging of soft tissue Start: 02-21-2022 CT of head without contrast Start: 10-09-2021 Radiologic exam ches t 2 views Laquita Coulter CLINICAL RESEARCH ANALYST.CYTOLOGY TEACHER Work Phone: Start: 09-04-2021 SARS-CoV-2 Antigen (Rapid) Start: 09-04-2021 Plain chest X-ray Start: 09-03-2021 Radiologic exam ches t 2 views Ladan Marina CLINICAL RESEARCH ANALYST.CYTOLOGY TEACHER Work Phone: Start: 08-28-2021 Screening mammography H/O: surgery S/P SURGICAL SCRUB TECHNICIAN shunt David Dorsey MD Work Phone: Plan of Treatment Date Care Activity Detail Author Start: 04-15-2029 Urine microalbumin profile [facility] Start: 05-08-2024 Covid-19 Vaccine ( season) Covid-19 Vaccine () [facility] Start: 05-08-2024 [facility] Start: 01-22-2024 Hepatitis B surface antibody level LDL CHOLESTEROL [facility] Start: 09-07-2023 Advance Directive Discussion Advance Directive Discussion [facility] Start: 07-24-2023 Hemoglobin A1c measurement HbA1C [facility] Start: 07-24-2023 Hemoglobin A1c/Hemoglobin.total in Blood HBA1C [facility] Start: 07-16-2023 Hepatitis B surface antibody level LDL CHOLESTEROL [facility] Start: 05-08-2023 Covid-19 Vaccine () Covid-19 Vaccine () [facility] Start: 05-08-2023 Influenza vaccination INFLUENZA (#1) [facility] Start: 01-27-2023 End: 03-29-2023 ALBUMIN/CREAT RATIO RND UR ALBUMIN/CREAT RATIO RND UR Lab Routine Controlled type 2 diabetes mellitus without complication, without long-term current use of insulin (HCC) Expected: 01/27/2023 (Approximate), Expires: 03/29/2023 [facility] Work Phone: Comment on above: Expected: 01/27/2023 (Approximate), Expires: 03/29/2023 Start: 01-27-2023 End: 03-29-2023 CBC panel - Blood by Automated count CBC Lab Routine Essential hypertension, benign Expected: 01/27/2023 (Approximate), Expires: 03/29/2023 [facility] Work Phone: Comment on above: Expected: 01/27/2023 (Approximate), Expires: 03/29/2023 Start: 01-27-2023 End: 03-29-2023 Comprehensive metabolic 2000 panel - Serum or Plasma COMP METABOLIC PANEL Lab Routine Hyperlipidemia, unspecified hyperlipidemia type Controlled type 2 diabetes mellitus without complication, without long-term current use of insulin (HCC) Expected: 01/27/2023 (Approximate), Expires: 03/29/2023 [facility] Work Phone: Comment on above: Expected: 01/27/2023 (Approximate), Expires: 03/29/2023 Start: 01-27-2023 End: 03-29-2023 Hemoglobin A1c in Blood HGB A1C Lab Routine Controlled type 2 diabetes mellitus without complication, without long-term current use of insulin (HCC) Expected: 01/27/2023 (Approximate), Expires: 03/29/2023 [facility] Work Phone: Comment on above: Expected: 01/27/2023 (Approximate), Expires: 03/29/2023 Start: 01-27-2023 End: 03-29-2023 Lipid 1996 panel - Serum or Plasma LIPID PANEL BASIC Lab Routine Hyperlipidemia, unspecified hyperlipidemia type Expected: 01/27/2023 (Approximate), Expires: 03/29/2023 [facility] Work Phone: Comment on above: Expected: 01/27/2023 (Approximate), Expires: 03/29/2023 Start: 01-15-2023 Hepatitis B surface antibody level LDL CHOLESTEROL [facility] Start: 10-16-2022 Hemoglobin A1c/Hemoglobin.total in Blood HBA1C [facility] Start: 09-07-2022 ADVANCE DIRECTIVE DISCUSSION ADVANCE DIRECTIVE DISCUSSION [facility] Start: 07-26-2022 Hepatitis B surface antibody level LDL CHOLESTEROL [facility] Start: 07-25-2022 End: 09-24-2022 CBC panel - Blood by Automated count CBC Lab Routine Essential hypertension, benign Expected: 07/25/2022, Expires: 09/24/2022 [facility] Work Phone: Comment on above: Expected: 07/25/2022 , Expires: 09/24/2022 Start: 07-25-2022 End: 09-24-2022 Comprehensive metabolic 2000 panel - Serum or Plasma COMP METABOLIC PANEL Lab Routine Controlled type 2 diabetes mellitus without complication, without long-term current use of insulin (HCC) Hyperlipidemia, unspecified hyperlipidemia type Expected: 07/25/2022 (Approximate), Expires: 09/24/2022 [facility] Work Phone: Comment on above: Expected: 07/25/2022 (Approximate), Expires: 09/24/2022 Start: 07-25-2022 End: 09-24-2022 Hemoglobin A1c/Hemoglobin.total in Blood HGB A1C Lab Routine Controlled type 2 diabetes mellitus without complication, without long-term current use of insulin (HCC) Expected: 07/25/2022 (Approximate), Expires: 09/24/2022 [facility] Work Phone: Comment on above: Expected: 07/25/2022 (Approximate), Expires: 09/24/2022 Start: 07-25-2022 End: 09-24-2022 LIPID PANEL BASIC LIPID PANEL BASIC Lab Routine Controlled type 2 diabetes mellitus without complication, without long-term current use of insulin (HCC) Hyperlipidemia, unspecified hyperlipidemia type Expected: 07/25/2022 (Approximate), Expires: 09/24/2022 [facility] Work Phone: Comment on above: Expected: 07/25/2022 (Approximate), Expires: 09/24/2022 Start: 07-18-2022 Hemoglobin A1c/Hemoglobin.total in Blood HBA1C [facility] Start: 07-17-2022 3 comp foot exam completed DIABETIC FOOT EXAM [facility] Start: 07-17-2022 Diabetic foot examination Diabetic F oot Exam [facility] Start: 05-08-2022 Influenza vaccination INFLUENZA (#1) [facility] Start: 04-12-2022 Hepatitis B screening URINE ALBUMIN:CREATININE RATIO [facility] Start: 02-24-2022 Patient discharge [facility] Work Phone: Start: 02-24-2022 Referral to service [facility] Work Phone: Start: 02-21-2022 Following clinical p athway protocol [facility] Work Phone: Start: 02-21-2022 Ambulation without limitation [facility] Work Phone: Start: 02-21-2022 Assessment of risk o f venous thromboembolism [facility] Work Phone: Start: 02-21-2022 Continuous positive airway pressure ventilation treatment [facility] Work Phone: Start: 02-21-2022 Incentive spirometry [facility] Work Phone: Start: 02-21-2022 Insertion of cathete r into peripheral vein [facility] Work Phone: Start: 02-21-2022 Measuring intake and output [facility] Work Phone: Start: 02-21-2022 Providing care accor ding to standard [facility] Work Phone: Start: 02-21-2022 Referral to occupati onal therapist [facility] Work Phone: Start: 02-21-2022 Referral to service [facility] Work Phone: Start: 02-21-2022 [facility] Work Phone: Start: 02-21-2022 Verification routine [facility] Work Phone: Start: 02-21-2022 Admission procedure [facility] Work Phone: Start: 02-21-2022 Urinalysis complete panel - Urine [facility] Work Phone: Start: 02-11-2022 Glaucoma screening Dilated Retinal E xam [facility] Start: 02-11-2022 Hepatitis C antibody , confirmatory test DILATED RETINAL EXAM [facility] Start: 01-23-2022 Hemoglobin A1c/Hemoglobin.total in Blood HBA1C [facility] Start: 11-17-2021 COVID-19 VACCINE (4 - Booster for Moderna series) COVID-19 VACCINE (4 - Booster for Moderna series) [facility] Start: 09-14-2021 COVID-19 VACCINE (5 - Booster for Moderna series) COVID-19 VACCINE (5 - Booster for Moderna series) [facility] Start: 09-14-2021 COVID-19 VACCINE (5 - Moderna series) COVID-19 VACCINE (5 - Moderna series) [facility] Start: 09-07-2021 ADVANCE DIRECTIVE DISCUSSION ADVANCE DIRECTIVE DISCUSSION [facility] Start: 06-22-2020 FECAL OCCULT BLOOD FECAL OCCULT BLOO D [facility] Start: 2015 RSV Vaccine (1 - 1-d ose 75+ series) RSV Vaccine (1 - 1-dose 75+ series) [facility] Start: 2000 RSV Vaccine (1 - 1-d ose 60+ series) RSV Vaccine (1 - 1-dose 60+ series) [facility] Start: 1958 Anxiety Screening Anxiety Screening [facility] End: 03-06-2024 CT BRAIN WO IVCON CT BRAIN WO IVCON Radiology Routine Other hydrocephalus (HCC) 1 Occurrences starting 02/05/2023 until 03/06/2024 [facility] Work Phone: Comment on above: 1 Occurrences starti ng 02/05/2023 until 03/06/2024 End: 03-28-2023 Ct head/brain w/o contrast material CT BRAIN WO IVCON Radiology Routine Other hydrocephalus (HCC) S/P SURGICAL SCRUB TECHNICIAN shunt 1 Occurrences starting 02/26/2022 until 03/28/2023 [facility] Work Phone: Comment on above: 1 Occurrences starti ng 02/26/2022 until 03/28/2023 End: 04-05-2023 Ct head/brain w/o contrast material CT BRAIN WO IVCON Radiology Routine Other hydrocephalus (HCC) 1 Occurrences starting 03/06/2022 until 04/05/2023 [facility] Work Phone: Comment on above: 1 Occurrences starti ng 03/06/2022 until 04/05/2023 Cystourethroscopy CYSTO.PANENDO Procedures Routine Urine retention 1 Occurrences starting 01/07/2023 [facility] Work Phone: Comment on above: 1 Occurrences starti ng 01/07/2023 End: 09-05-2023 DXA-AXIAL SKELETON DXA-AXIAL SKELETON Radiology Routine Encounter for screening for osteoporosis Unspecified menopausal and perimenopausal disorder 1 Occurrences starting 08/06/2022 until 09/05/2023 [facility] Work Phone: Comment on above: 1 Occurrences starti ng 08/06/2022 until 09/05/2023 Patient Education Coronavirus Di sease 2019 (COVID-19): Caring for Yourself or Others ED - COVID Monoclonal AB Infusion ... [facility] Work Phone: Patient referral [facility] Work Phone: End: 02-06-2024 US KIDNEY/BLADDER US KIDNEY/BLADDER Radiology Routine Mixed stress and urge urinary incontinence Urine retention 1 Occurrences starting 01/07/2023 until 02/06/2024 [facility] Work Phone: Comment on above: 1 Occurrences starti ng 01/07/2023 until 02/06/2024 [facility] Immunizations Immunization Date Immunization Notes Care Provider Fa cili 06-07-2022 influenza, high-dose , quadrivalent vaccine (FLUZONE HIGH DOSE QUADRIVALENT) Immunization [place] Work Phone: [facility] Work Phone: 06-07-2022 influenza virus vaccine, unspecified formulation Harsh Mcnair MD Work Phone: [facility] 07-20-2021 COVID-19 vaccine, ag e 12+ yr (PFIZER-Prism DigitalNTO'ol Blue - PURPLE TOP) Harsh Mcnair MD Work Phone: [facility] 05-11-2021 influenza, high dose seasonal, preservative-free Harsh Mcnair MD Work Phone: [facility] 12-30-2020 zoster vaccine recombinant Harsh Mcnair MD Work Phone: [facility] Work Phone: 11-05-2020 Covid (Pfizer) Dr. Jesus Longo Work Phone: [facility] 07-24-2020 zoster vaccine recombinant Harsh Mcnair MD Work Phone: [facility] Work Phone: 05-19-2020 influenza, high-dose , quadrivalent vaccine (FLUZONE HIGH DOSE QUADRIVALENT) Harsh Mcnair MD Work Phone: [facility] 05-27-2019 influenza, high dose seasonal, preservative-free Harsh Mcnair MD Work Phone: [facility] Work Phone: 04-15-2019 tetanus toxoid, redu denis diphtheria toxoid, and acellular pertussis vaccine, adsorbed Harsh Mcnair MD Work Phone: [facility] 05-14-2018 influenza, high dose seasonal, preservative-free Harsh Mcnair MD Work Phone: [facility] Work Phone: 06-07-2017 influenza, high dose seasonal, preservative-free Harsh Mcnair MD Work Phone: [facility] 06-17-2016 influenza, high dose seasonal, preservative-free Harsh Mcnair MD Work Phone: [facility] Work Phone: 06-13-2015 influenza, high dose seasonal, preservative-free Harsh Mcnair MD Work Phone: [facility] 09-27-2014 pneumococcal conjuga te vaccine, 13 valent Harsh Mcnair MD Work Phone: [facility] Work Phone: 06-09-2014 influenza, high dose chema, preservative-free Harsh Mcnair MD Work Phone: [facility] 06-22-2012 zoster vaccine, live Harsh rodríguez MD Work Phone: [facility] 06-02-2012 influenza virus vaccine, unspecified formulation Harsh Mcnair MD Work Phone: [facility] 08-04-2011 tetanus toxoid, redu denis diphtheria toxoid, and acellular pertussis vaccine, adsorbed Harsh Mcnair MD Work Phone: [facility] 06-24-2011 influenza virus vaccine, unspecified formulation Harsh Mcnair MD Work Phone: [facility] Work Phone: 08-05-2006 pneumococcal polysaccharide vaccine, 23 valent Harsh Mcnair MD Work Phone: [facility] 07-08-2006 influenza virus vaccine, unspecified formulation Harsh Mcnair MD Work Phone: [facility] Work Phone: 07-02-2005 pneumococcal polysaccharide vaccine, 23 valent Harsh Mcnair MD Work Phone: [facility] Work Phone: 08-21-1998 diphtheria and tetan us toxoids, adsorbed for pediatric use Harsh Mcnair MD Work Phone: [facility] 08-15-1998 pneumococcal polysaccharide vaccine, 23 valent Harsh Mcnair MD Work Phone: [facility] 04-19-1960 trivalent poliovirus vaccine, live, oral Harsh Mcnair MD Work Phone: [facility] Payers Date Payer Category Payer Self-pay [id number] 2022 Private Health Insurance [id number] 2020 Private Health Insurance [facility] INDEMNITY [id number] 2020-Present [phone] [address] [place] [address] Indemnity [id number] 2020 Private Health Insurance [id number] 2005 Medicare [id number] 2005 Medicare MEDICARE MEDICAR E A AND B [id number] 2005-Present [phone] [place] [address] Medicare [id number] 2005 Medicare MEDICARE MEDICAR E A AND B [id number] 2005-Present [phone] [place] [address] Medicare [id number] Unknown [id number] Unknown [id number] Unknown [id number] Unknown [id number] Unknown [id number] Unknown [id number] Unknown [id number] Social History Date Type Detail Facility Start: 09-04-2021 End: 07-22-2022 Tobacco smoking status NHIS Unknown if ever smoked [facility] Start: 1940 Sex Assigned At Female [facility] Start: 05-21-2022 End: 07-22-2022 Tobacco smoking status NHIS Never smoked tobacco [facility] Start: 09-03-2021 End: 10-09-2021 Alcohol intake Current drinker of alcohol (finding) [facility] Start: 07-04-2020 End: 07-30-2022 History SDOH Financial 5 [facility] Start: 07-04-2020 End: 07-30-2022 History SDOH Food Worry 1 [facility] Start: 07-04-2020 End: 07-30-2022 History SDOH Transport Med 2 [facility] Start: 1940 Sex Assigned At Not on file [facility] Start: 09-09-2021 End: 08-06-2022 Exposure to SARS-CoV-2 (event) Not sure [facility] Start: 03-02-2022 History SDOH Alcohol Std Drinks 98 [facility] Start: 03-02-2022 History SDOH Social Connections Sikhism 3 [facility] Start: 03-02-2022 End: 07-30-2022 History SDOH Social Connections Living 4 [facility] Start: 03-02-2022 End: 07-30-2022 History SDOH Physical Activity DPW 0 [facility] Start: 05-21-2022 Tobacco use and exposure Smoke less tobacco non-user [facility] Start: 08-13-2020 End: 07-30-2022 History of Social function [facility] Start: 08-13-2020 End: 07-30-2022 Social connection and isolation panel [facility] Start: 08-04-2021 End: 09-03-2021 Do you belong to any clubs or organizations such as anglican groups, unions, fraternal or athletic groups, or school groups? Yes [facility] Are you now , , , , never or living with a partner? [facility] How often to you hav e a drink containing alcohol? Never [facility] How many standard dr inks containing alcohol do you have on a typical day? Patient does not drink [facility] Do you feel stress - tense, restless, nervous, or anxious, or unable to sleep at night because your mind is troubled all the time - these days [OSQ] Only a little [facility] (I/We) worried maggie er (my/our) food would run out before (I/we) got money to buy more. Never true [facility] In the past 12 month s, was there a time when you were not able to pay the mortgage or rent on time? No [facility] Start: 12-08-2024 Sex Female (finding) [facility] Medical Equipment Procedure Code Equipment Code Equipment Origin al Text Equipment Identifier Dates Catheter Bactise al 14cm External Drainage Csf Sterile Latex Free - [id number] Start: 04-13-2020 Catheter Bactise al 120cm External Drainage Csf Sterile Latex Free - [id number] Start: 04-13-2020 Raysal Holter Rickham 6mm Plastic Base 15cm Shunt Ventricular Catheter - [id number] Start: 04-13-2020 Catheter Edm Bar ium Silicone 80cm Drainage Open Tip Impregnate Sterile - [id number] Start: 02-14-2020 Programmable Awa ve Inline Small Valve W/Siphonguard [id number] Start: 04-13-2020 [id number], [id number], [id number], [id number] Start: 09-09-2018 End: 10-06-2022 Comment on above: [...] Assessment Result Facility 02-24-2022 Functional status Ambulates [facility] Work Phone: Mental Status Date Assessment Result Facility 02-24-2022 Cognitive function Voice/Name [facility] Work Phone: 02-21-2022 Cognitive function Level Of Cons ciousness Awake;Alert;Appropriate;Follow s Commands [facility] Work Phone: 09-06-2021 Cognitive function Voice/Name;To uch/Shaking;Light Pain;Deep Pain [facility] Work Phone: 09-04-2021 Cognitive function Level Of Cons ciousness Awake;Alert;Appropriate;Follow s Commands [facility] Work Phone: Clinical Notes 04-13-2020 to 01-15-2024 Telephone Encounter - Shahrzad Anderson MA - 01/15/2024 2:33 PM EDTTelephone Encounter - Shahrzad Anderson MA - 01/15/2024 2:33 PM EDTTelephone Encounter - Afsaneh Cruz MA - 01/14/2024 3:08 PM EDT Note Date & Type Note Facility 01-15-2024 Telephone encounter Note Form faxed to [facility]. PCP updated. Shahrzad Anderson MA [facility] 01-15-2024 Miscellaneous Notes Form faxed to [facility] office. PCP updated. Shahrzad Anderson MA OK to send to new PCP and change PCP Harsh Mcnair MD Pt is currently receiving prescription from Dr. Ivy as of September 2023 and is under her care. She is currently at [facility]. The documents are requesting an OV note [...] Completed form needs to be faxed to [facility] at [phone]. Route to [place] when form completed for processing documented in this encounter [facility] 01-15-2024 Telephone encounter Note OK to send to new PCP and change PCP Harsh Mcnair MD [facility] 01-14-2024 Telephone encounter Note Pt is currently receiving prescription from Dr. Ivy as of September 2023 and is under her care. She is currently at [facility]. The documents are requesting an OV note in the past year about CPAP, which we do not have listed in our visits. Do you still want to complete form or should we have new PCP complete. Please review and advise. Can we updated PCP? Afsaneh Cruz MA [facility] 01-14-2024 Telephone encounter Note Type of letter/form/fax request - Medical Necessity-PAP supplies Form received from fax on 1 floor and placed on MD desk (Dr. Mcnair) for completion. Completed form needs to be faxed to [facility] at [phone]. Route to [place] when form completed for processing [facility] 09-24-2023 Note HNO ID: [id number] Author: RAMÍREZ LEAVITT PA-C Service: ? Author Type: Physician [employer] Type: Progress Notes Filed: 09/25/2023 08:21 Note Text: CC: SURGICAL SCRUB TECHNICIAN shunt f/u HPI: Mrs Mike comes to clinic today for surgical f/u. She had a SURGICAL SCRUB TECHNICIAN shunt implanted on 04/13/20 with Certas valve. [...] a history of NPH. She had a SURGICAL SCRUB TECHNICIAN shunt implanted on 04/13/20 with Certas valve. [...] reviewed which shows stable enlarged ventricle system, SURGICAL SCRUB TECHNICIAN shunt catheter in place and no acute abnormalities. We discussed benefits and risks of SURGICAL SCRUB TECHNICIAN shunt adjustment. After discussion, Ramona and her daughter would like to continue to work with PT to try and become more active without adjusting shunt. Plan for follow up in 6-[address] brain. Plan: Shunt information Shunt type: Certas Initial settin New settin Ramírez Leavitt PA-C [facility] 09-24-2023 Note HNO ID: [id number] Author: ZHANNA CARRERA RT(R) Service: ? Author Type: Radiation Technician Type: Progress Notes Filed: 09/24/2023 13:53 Note [...] Luis Fernando(R) September 24, 2023 1:49 PM [facility] 05-06-2023 Miscellaneous Notes Spoke with pt's daughter and information listed below given. Pt's daughter verbalizes understanding. Bj Santana LPN Message left for Roselyn to call back. Shahrzad Anderson Ma The ASA was probably to reduce the risk of [place]; it would be OK to stop this now It would be OK to take 1000 mg tylenol rather than the mobic Harsh Mcnair MD Daughter calling to let you know pt was admitted into [facility] at [facility] yesterday 05-04-23. Daughter has 2 questions. 1)[facility] would like to know why pt is taking baby aspirin daily. 2) [facility] asking if pt would be able to take 1000 mg of extra strength Tylenol instead of Meloxicam due to possible bleeding. Please advise daughter on both issues above. Bj Santana LPN documented in this encounter [facility] 04-21-2023 Miscellaneous Notes Talia with [facility] calls to report that pt is looking at moving into their facility for Assisted Living. Talia requested face sheet, H&P, OV notes. Faxed to: [phone] as reqeusted. Lynette Adamson LPN documented in this encounter [facility] 04-17-2023 Note HNO ID: [id number] Author: Laquita Coulter APRN.CYTOLOGY TEACHER Service: ? Author Type: Nurse Practitioner Type: Progress Notes Filed: 04/17/2023 3:34 PM Note Text: This is a 82 year old female who presents today with: Patient presents with: Follow Up: admission to [facility]. HISTORY OF PRESENT ILLNESS: Ramona Mike is a 82 year old female. Patient presents with: Follow Up: admission to [facility]. Here in the office for follow-up prior to [facility] Daughter present for this visit. Using [...] TAKE TWO TABLETS BY MOUTH WITH DINNER. [employer] ULTRA TEST test strip TEST BLOOD SUGAR [...] REVIEW OF S (more content not included)... [facility] 04-17-2023 Instructions Laquita Coulter APRN.ODILON - 04/17/2023 [...] sooner as needed. documented in this encounter [facility] 04-17-2023 History of Present illness Narrative This is a 82 year old female who presents today with: Patient presents with: Follow Up: admission to [facility]. HISTORY OF PRESENT ILLNESS: Ramona Mike is a 82 year old female. Patient presents with: Follow Up: admission to [facility]. Here in the office for follow-up prior to admission to long-term care facility ( [facility] Faith Villarreal), Daughter present for this visit. [...] help at home. Dementia: Following with brain [facility], Marcelo Morenoi CYTOLOGY TEACHER. Taking Aricept 5 mg daily. Shunt in [...] APRN.CNP This note was partially generated using uParts voice recognition system. Note was reviewed for accuracy. There may be minor misspellings or grammar miscues with [employer]Parts voice recognition. documented in this encounter [facility] 04-03-2023 Miscellaneous Notes The following approved medication [...] advise. Sofie Almodovar documented in this encounter [facility] 02-06-2023 Miscellaneous Notes This info was relayed to pts daughter. OK fro Tradjenta as ordered; it appears this is preferred by her insurance Harsh Mcnair MD Insurance has reviewed this and it has been denied. Response is. Date: 02/06/2023 Harsh Mcnair [address] [place] [address] RE: Denial of request for coverage of [...] Roselyn is calling Harsh Mcnair MD today. [facility] pharmacy advised daughter authorization is needed before they can fill SITagliptin phosphate (JANUVIA) 100 mg tablet A new prescription was sent on 01/29 Please contact pharmacy for clarification and return daughters call at [phone] documented in this encounter [facility] 02-05-2023 Note HNO ID: [id number] Author: Marcelo Mancini APRN.ODILON Service: ? Author Type: Nurse Practitioner Type: Progress Notes Filed: 02/05/2023 5:40 PM Note Text: Ramona Mike 1940 [id number] [place] [address] February 05, 2023 [facility] VIRTUAL FOLLOW-UP NOTE This visit was conducted using audio + video elements. I have communicated my name and active licensure. The patient's identity and physical location were verified at the time of this visit. Either the patient or their legal inbound sales representative has been informed of the risks [...] days ago They have looked into the MEETiiN system but Roselyn feels it may be too cumbersome- and indeed there is some equipment involved They did have a [employer] appt today and they were generally happy [...] community resources to help care for yourself? christian education director Has your caregiver accompanied you today? Yes [...] such as wal (more content not included)... [facility] 02-05-2023 Instructions Marcelo Mancini APRN.CNP - 02/05/2023 5:38 PM EDT Give the vibegron (Zen99) more time to work later in the [...] recheck on things documented in this encounter [facility] 02-05-2023 History of Present illness Narrative Ramona C Rashid 1940 [id number] [facility] [address] February 05, 2023 [facility] VIRTUAL FOLLOW-UP NOTE This visit was conducted using audio + video elements. I have communicated my name and active licensure. The patient's identity and physical location were verified at the time of this visit. Either the patient or their legal inbound sales representative has been informed of the risks and benefits of -- and alternatives to -- treatment through a remote evaluation and consents to proceed with the evaluation remotely. Accompanied by: daughter Roselyn Mike is a pleasant 82 year old female seen today for a follow up visit. Ramona Mike is being followed for Dementia without behavioral disturbance, unspecified in the setting of [facility] s/p VPS placement in 2019, and vascular [...] days ago They have looked into the MEETiiN system but Roselyn feels it may be [...] No Social History reviewed by Marcelo Mancini APRN.CYTOLOGY TEACHER PATIENT-ENTERED DATA Patient-Reported 05/21/2022 Where are you currently living? Home / Private residence Are you using any community resources to help care for yourself? christian education director Has your caregiver accompanied you today? Yes [...] female with a history of hydrocephalus (s/p SURGICAL SCRUB TECHNICIAN shunt April 2020), hypertension, hyperlipidemia, and diabetes [...] due to medical condition without behavioral disturbance ([facility]) (primary encounter diagnosis) (G91.2) NPH (normal pressure hydrocephalus) ([facility]) (Z98.2) S/P SURGICAL SCRUB TECHNICIAN shunt (F33.41) Major depressive disorder, recurrent, in partial remission ([facility]) (N39.3) Female stress incontinence PLAN: Give the [employer]on (Zen99) more time to work later in the [...] on the date of service which included fatj-op-izqr patient care and counseling and educating the patient/daughter. Marcelo Mancini, MSN, SALES REPRESENTATIVE JEWELRY-C, CNRN CC: 1. Harsh Mcnair MD, (fax) [phone] documented in this encounter [facility] 02-05-2023 Note HNO ID: [id number] Author: Ramírez Leavitt PA-C Service: ? Author Type: Physician Rotary Dryer Operator Type: Progress Notes Filed: 02/05/2023 3:15 PM Note Text: CC: SURGICAL SCRUB TECHNICIAN shunt f/u HPI: Mrs Mike comes to clinic today for surgical f/u. She had a SURGICAL SCRUB TECHNICIAN shunt implanted on 04/13/20 with Certas valve. [...] with a history of NPH. She had SURGICAL SCRUB TECHNICIAN shunt implantation on 04/13/20 with Certas valve. [...] reviewed which shows stable enlarged ventricle system, SURGICAL SCRUB TECHNICIAN shunt catheter in place and no acute abnormalities. Follow up in 6-[address] brain Plan: Shunt information Shunt type: Certas Initial settin New settin Ramírez Leavitt PA-C [facility] 02-05-2023 Note HNO ID: [id number] Author: RT Miguel(R) Service: Radiology Author Type: [...] RT Jeffrey(R) February 05, 2023 1:45 PM [facility] 02-05-2023 History of Present illness Narrative CC: SURGICAL SCRUB TECHNICIAN shunt f/u HPI: Mrs Mike comes to clinic today for surgical f/u. She had a SURGICAL SCRUB TECHNICIAN shunt implanted on 04/13/20 with Certas valve. [...] with a history of NPH. She had SURGICAL SCRUB TECHNICIAN shunt implantation on 04/13/20 with Certas valve. [...] reviewed which shows stable enlarged ventricle system, SURGICAL SCRUB TECHNICIAN shunt catheter in place and no acute abnormalities. Follow up in 6-[address] brain Plan: Shunt information Shunt type: Certas Initial settin New settin Ramírez Leavitt PA-C documented in this encounter [facility] 02-05-2023 History of Present illness Narrative Radiology [...] 2023 1:45 PM documented in this encounter [facility] 02-03-2023 Miscellaneous Notes Patient has been identified by name and date of : Yes Requested Prescriptions Pending Prescriptions Disp Refills SITagliptin phosphate (JANUVIA) 100 mg tablet 90 tablet 3 Sig: Take 1 tablet by mouth once daily. RX INSTRUCTIONS: Patient aware RX will be sent to pharmacy. No need to notify patient. Bonnie Santana Pss documented in this encounter [facility] 01-29-2023 Note HNO ID: [id number] Author: Harsh Mcnair MD Service: ? Author [...] 75 mg daily. Dementia: Following with [facility] Marcelo Vizcainoangelique CYTOLOGY TEACHER. Is on Aricept 5 mg once daily. [...] ORAL) Take by (more content not included)... [facility] 01-27-2023 Note HNO ID: [id number] Author: Kenneth Park Jr., MD Service: ? Author Type: Physician Type: Procedures Filed: 01/27/2023 11:07 AM Note Text: CYSTOSCOPY PROCEDURE NOTE: Ramona Mike is a 82 year old female who presents with urge incontinence for a cystoscopy. Pt ID verified with patient: Yes Fire risk assessment done Procedure verified with patient: Yes Procedure confirmed with physician and fire support specialist: Yes UNIVERSAL PROTOCOL / SAFETY CHECKLIST Procedure [...] fluid intake as directed. ASSESSMENT/PLAN: Behavioral management [employer] Cysto nl Set for prn Kenneth Park Jr, MD [facility] 01-16-2023 Miscellaneous Notes The following approved medication [...] advise. ATILIO Looney documented in this encounter [facility] 01-15-2023 Miscellaneous Notes Paperwork completed and faxed back to information below. Afsaneh Cruz Ma Type of form: New Rx for CPAP supplies from [facility]. CMN for DME Form received via fax When form is completed, Fax form to [phone] Form has been forwarded to Physician Desk: Dr. Xu Cruz Ma documented in this encounter [facility] 01-13-2023 Miscellaneous Notes Call to daughter, Roselyn [...] Kaelyn Ochoa LPN documented in this encounter [facility] 01-13-2023 Miscellaneous Notes [facility] pharmacy notified to remove Ditropan from pt med list. Shahrzad Anderson Ma She was taken off Ditropan due to memory changes; she is now on Gemtesa instead Harsh Mcnair MD documented in this encounter [facility] 01-07-2023 Instructions Cristine Puri APRN.CYTOLOGY TEACHER - 01/07/2023 9:18 AM EDT Images from [...] patient s medical history, current prescription and sfxd-sgb-daurmrl medications, and allergies to medications, including anesthetics. [...] her bladder before the procedure begins. The xjhf-tz-zdlb process may be similar to this: The [...] urethral opening to relieve discomfort Take an gupq-oey-ygizzua pain medicine If necessary, the urologist may [...] urine Fever Severe discomfort References: NIH: National [place] of Diabetes and Digestive and Kidney Diseases. Cystoscopy and Ureteroscopy Accessed 03/05/2017. Kimberly Espinoza, Lyndon D, Ravi H, Selvin RIVERO. The History of Cystoscopy in Urology, Internet Journal of Urology. 14,1 (2015) [employer] Accessed 03/05/2017. U[employer]. What is Cystoscopy? Accessed 03/05/2017. Copyright 6783-5223 [facility]. All rights reserved. documented in this encounter [facility] 01-07-2023 History of Present illness Narrative [facility] [...] fluid intake: water diet caffeine free pop MAINTENANCE ENGINEER OIL FIELD: Gynec: G 3, P 3 Vaginal delivery:Yes [...] breath CARDIOVASCULAR: Negative for chest pain or [place] Taking a blood thinner? NO GI: Positive [...] Cristine Puri APRN.CNP documented in this encounter [facility] 12-25-2022 Miscellaneous Notes Pt notified. Transferred to [...] Bj Santana LPN documented in this encounter [facility] 10-27-2022 Miscellaneous Notes The following approved medication requests have been transmitted electronically. Requested Prescriptions Signed Prescriptions Disp Refills donepezil (ARICEPT) 5 mg tablet 90 tablet 1 Sig: Take 1 tablet by mouth daily with breakfast. Marcelo Mancini APRN.ODILON documented in this encounter [facility] 10-22-2022 Miscellaneous Notes Patient daughter Roselyn calling [...] Bj Santana LPN documented in this encounter [facility] 10-14-2022 Miscellaneous Notes Roselyn notified and voiced [...] advise daughter Roselyn documented in this encounter [facility] 10-03-2022 Miscellaneous Notes Mirabegron not covered by patient's insurance (per pharmacy) - request from pharmacy to order vibegron The following approved medication requests have been transmitted electronically. Requested Prescriptions Signed Prescriptions Disp Refills vibegron (GEMTESA) 75 mg tablet 90 tablet 1 Sig: Take 1 tablet by mouth once daily. Authorizing Provider: MARCELO MANCINI APRN.ODILON documented in this encounter [facility] 10-01-2022 History of Present illness Narrative Per discussion w/ Dr. Casper- OK to discontinue oxybutynin and switch to mirabegron Orders placed Will ensure MC message is read- otherwise will reach out via phone to convey this change Marcelo Mancini, MSN, SALES REPRESENTATIVE JEWELRY-C, CNRN documented in this encounter [facility] 09-18-2022 Miscellaneous Notes Daughter called and notified, [...] Please advise daughter. documented in this encounter [facility] 08-06-2022 History of Present illness Narrative Grounds And Nursery Specialist offered: Patient declines. Ramona is a 82 [...] L3 SAB0 IAB0 Ectopic0 Multiple0 Live Births0 Transportation Assistant History LMP: Postmenopausal Age at Menarche: Age at First : Age at Menopause: Transportation Assistant History Comments: Sexual Activity: Not Currently; Male [...] external genitalia normal, normal Bartholin's glands, urethra, [place]es's glands, no vulvar lesions, no cervical lesions, [...] Vanessa Watson MD documented in this encounter [facility] 07-30-2022 History of Present illness Narrative Chief [...] mobic 7.5 mg daily. Pt presented to [facility] ER on 07/23/22 with c/o nausea, vomiting, [...] by mouth with dinner. blood sugar diagnostic ([employer]TOUCH ULTRA TEST) test strip Test blood sugar [...] Past Histories independently gathered by the clinical fire support specialist and the remaining scribed note accurately describes [...] Shahrzad Anderson Ma documented in this encounter [facility] 07-30-2022 Miscellaneous Notes LVM about appointment change per email documented in this encounter [facility] 07-22-2022 Miscellaneous Notes Noted I agree with [...] Kaelyn Ochoa LPN documented in this encounter [facility] 07-15-2022 Miscellaneous Notes Pt daughter Roselyn notified. Shahrzad Anderson Ma Noted; I will review her meds at her appt next week and decide what would be best. The after visit summary should be available on [employer] Rock[employer] Harsh Mcnair MD Pts daughter called in [...] call and advise. 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 The assessment consisted of a brief interview [...] female with a history of hydrocephalus (s/p SURGICAL SCRUB TECHNICIAN shunt April 2020), hypertension, hyperlipidemia, and diabetes [...] with bathing. Independent with dressing and toileting. Hand Developer: Reliant on daughters and caregivers . Appointments: Reliant on her daughter . Medications: Reliant on her daughters and caregivers . Finances: Reliant on her daughter . They noticed math errors. Driving: Discontinued last summer. MEDICAL HISTORY: See records for full review. Relevant diagnoses include hydrocephalus (s/p SURGICAL SCRUB TECHNICIAN shunt April 2020), hypertension, hyperlipidemia, and diabetes. [...] at outside hospital (02/21/22): "Interval right frontal SURGICAL SCRUB TECHNICIAN shunt catheter. There is no other significant interval change when compared to the previous examination." Head CT (08/23/2020): "Stable positioning of a right frontal approach SURGICAL SCRUB TECHNICIAN shunt catheter with slight improvement in moderate [...] by mouth with dinner. blood sugar diagnostic ([employer] ULTRA TEST) test strip Test blood sugar [...] years ago. 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 Family: The patient was 5 years ago. [...] female with a history of hydrocephalus (s/p SURGICAL SCRUB TECHNICIAN shunt April 2020), hypertension, hyperlipidemia, and diabetes [...] Ph.D. Staff Neuropsychologist Time testing and scoring (sdc teacher): 2.5 hours Time completing additional tests, analyzing, interpreting and incorporating other available medical information, clinical data review, and report writing (by neuropsychologist): 3 hours Tests Administered: [place] Naming Test Brief Visuospatial Memory Test-Revised Controlled Oral Word Association Test DKEFS Color-Word Interference Geriatric Depression Scale Reed Verbal Learning Test Judgment of Line Orientation- Short Form Test of Practical Judgment Alcove Making Test WAIS-IV subtests: Coding, Digit Span, Matrix Reasoning, Similarities WMS-IV Logical Memory WRAT-IV Reading documented in this encounter [facility] 03-06-2022 History of Present illness Narrative Summary: [facility] follow up IRB#: [id number] Infection Control Specialist: Dr. David Dorsey MD Study Name: [facility] Registry: Characterizing Patient Populations in the Adult Hydrocephalus Clinical Research Network Study Visit Conducted by: Roya Ward Date: March 06, 2022 Patient Patient seen for follow up visit in office on 03/06/2022. Informed consent and eligibility reviewed. Signed copy of consent provided to patient. Christ Cognitive Assessment, symbol digit modalities test, BDI-II, [place]ley ADL/IADL, and OAB-q short form questionnaire completed [...] Ward, Research Coordinator documented in this encounter [facility] 03-06-2022 History of Present illness Narrative CC: SURGICAL SCRUB TECHNICIAN shunt f/u HPI: Mrs Mike comes to clinic today for surgical f/u. She had a SURGICAL SCRUB TECHNICIAN shunt implanted on 04/13/20 with Certas valve. [...] with a history of NPH. She had SURGICAL SCRUB TECHNICIAN shunt implantation on 04/13/20 with Certas valve. [...] no abnormality with stable enlarged ventricles and SURGICAL SCRUB TECHNICIAN shunt in place. She was treated for dehydration with improvement of symptoms. Mrs Mike is following with Dr Mendoza who is weaning Sinemet in hopes to also improve dizziness. Plan for follow up in 6-[address] brain. Weaning off sinemet due to dizziness Plan: Shunt information Shunt type: Certas Initial settin New settin Ramírez Leavitt PA-C documented in this encounter [facility] 03-03-2022 History of Present illness Narrative March 03, 2022 Collins Mendoza MD [facility] [address] [place] [address] Harsh Mcnair [address] [place] [address] VIRTUAL VISIT Ramona Mike : 1940 Interval History: Ramona Mike is a 81 year old woman with NPH, s/p SURGICAL SCRUB TECHNICIAN shunt placed in April 2020, being seen [...] are independent. It was therefore never discussed bssp-cf-xvoy whether the Sinemet was still necessary. Allergies: [...] by mouth with dinner. blood sugar diagnostic ([employer]TOUCH ULTRA TEST) test strip Test blood sugar [...] which included preparing to see the patient, erxt-wh-xjiq patient care, completing clinical documentation, obtaining and/or reviewing separately obtained history, performing a medically appropriate examination, counseling and educating the patient/family/caregiver and ordering medications, tests, or procedures. Thank you for including me in the care of this interesting patient. Collins Mendoza MD Staff Neurologist [facility] Cc: documented in this encounter [facility] 03-03-2022 History of Present illness Narrative Transitional [...] here today with her daughterRoselyn for a [facility] ED discharge on 02/24/22. Daughter states that [...] the office and pt was referred to [facility] ED. Pt admitted. Pt has a VV [...] in the am and 0.5 tab pm. [facility] Hospitalist was uncertain why she was being [...] had BP checked since she's been home. [facility] PT came out last week as they [...] tabs po bid. SUMMARY: -Pt discharged from [facility] on 02/24/22 -Admitted for: lightheadedness, dehydration, dizziness, [...] who presented to the emergency department at [facility] on 02/21/2022 for dizziness and vomiting. [...] head was performed and shows interval right SURGICAL SCRUB TECHNICIAN shunt placement with no other interval change or acute findings. This was compared from a CT on 10/12/2019. A shuntogram was performed that showed ventriculoperitoneal shunt placement with apparent continuity of the shunt tube and no abnormalities. Her EKG ws unremarkable. Dr. Pete in the emergency department discussed the case with neurosurgery at [facility] (Dr. Simpson) who accepted the patient for [...] Past Histories independently gathered by the clinical fire support specialist and the remaining scribed note accurately describes my personal service to the patient. Harsh Mcnair MD The documentation for this note was completed by Afsaneh Cruz Ma acting as scribe for Harsh Mcnair MD. March 03, 2022 2:54 PM. Afsaneh Cruz Ma documented in this encounter [facility] 02-28-2022 Miscellaneous Notes Noted Monitor Harsh Mcnair MD HUBER GALVAN from [facility] HH calls to report that patient rolled out of bed around 7 am this morning. No injuries noted. Vital signs are within normal limits for patient. Lety Simpson RN documented in this encounter [facility] 02-26-2022 Miscellaneous Notes Noted and agree with plan Harsh Mcnair MD Marty , a PT with [facility] calling to state patient's PT plan of care: Patient will be seen 2 times per week for 3 weeks for functional mobility training. Patient declined OT. No call back needed if provider agreeable. Thank you. documented in this encounter [facility] 02-26-2022 Miscellaneous Notes Spoke with patient's daughter, [...] to report pt discharged last evening from [facility] and it was recommended pt contact Dr. Dorsey to schedule shunt check/follow up - [phone]. Should pt continue to take Carbidopa Levodopa 25/100 mg since shunt procedure [place] [address] Dorsey? documented in this encounter [facility] 02-25-2022 History of Present illness Narrative TRANSITION CARE MANAGEMENT (TCM) INITIAL CONTACT Associate Professor Of Surgery Outreach Provider Action/FYI: 7 Day TCM Pt was admitted to [facility] on 02/21/22 and discharged home 02/24/22 Spoke with daughter Roselyn today 02/25/22. Hospital F/U appt made for 03/03/22. No new medications. [facility] discontinued Sinemet as it might be causing [...] might be hidden SUMMARY: -Pt discharged from [facility] on 02/24/22 -Admitted for: lightheadedness, dehydration, dizziness, [...] who presented to the emergency department at [facility] on 02/21/2022 for dizziness and vomiting. [...] head was performed and shows interval right SURGICAL SCRUB TECHNICIAN shunt placement with no other interval change or acute findings. This was compared from a CT on 10/12/2019. A shuntogram was performed that showed ventriculoperitoneal shunt placement with apparent continuity of the shunt tube and no abnormalities. Her EKG ws unremarkable. Dr. Pete in the emergency department discussed the case with neurosurgery at [facility] (Dr. Simpson) who accepted the patient for [...] medications discontinued? Told to wean off her Sinemet-[facility] doctor did not understand why she is [...] provider to review documented in this encounter [facility] 02-25-2022 Miscellaneous Notes Opened in error. documented in this encounter [facility] 02-24-2022 Miscellaneous Notes Detailed message left for Charo. Jeyson Torres Ma I will follow for OT, PT, and HH Harsh Mcnair MD Nurse Charo from [facility] states pt is being observed for orthostatic hypotension, dehydration & dizziness. Will possibly discharge today & will be seen by HH 02/26/22. Will pcp follow? PT, OT & HH. Kaelyn Ochoa LPN documented in this encounter [facility] 02-21-2022 Miscellaneous Notes Daughter (Roselyn) calls to [...] Christina Garcia RN documented in this encounter [facility] 02-20-2022 Miscellaneous Notes This has been completed and faxed. Afsaneh Cruz Ma Office received fax from [employer] for Certificate of Medical Necessity for pt DME Pap supplies. Please review form and complete. Once completed fax back to [phone]. Afsaneh Cruz Ma documented in this encounter [facility] 01-22-2022 History of Present illness Narrative Chief [...] sugar free foods, but does go to [employer] on occasion. Depression - Stable with use [...] - Has Adv Dir/Living Will scanned into [employer]. Past medical history, appointments, medications, allergies reviewed. [...] by mouth with dinner. blood sugar diagnostic (Valued RelationshipsUCH ULTRA TEST) test strip Test blood sugar [...] Past Histories independently gathered by the clinical fire support specialist and the remaining scribed note accurately describes [...] Afsaneh Cruz Ma documented in this encounter [facility] 01-06-2022 Miscellaneous Notes The following approved medication [...] patient. Priscilla Wells documented in this encounter [facility] 10-09-2021 History of Present illness Narrative Radiology [...] 2021 12:06 PM documented in this encounter [facility] 09-03-2021 History of Present illness Narrative Radiology [...] 2021 3:16 PM documented in this encounter [facility] 04-13-2020 History of Past i llness Narrative Problem Noted Date Resolved Date Postoperative pain 04/13/2020 04/19/2020 Normal pressure hydrocephalus 10/13/2019 Symptomatic menopausal or female climacteric sta eulalia 08/21/2008 07/23/2010 documented as of this encounter (statuses as of 01/06/2022) [facility] History of Past illness Narrative* Problem Noted Date Resolved Date Postoperative pain 04/13/2020 04/19/2020 Normal pressure hydrocephalus 10/13/2019 Symptomatic menopausal or female climacteric sta eulalia 08/21/2008 07/23/2010 documented as of this encounter (statuses as of 01/22/2022) [facility] History of Past illness Narrative* Problem Noted Date Resolved Date Postoperative pain 04/13/2020 04/19/2020 Normal pressure hydrocephalus 10/13/2019 Symptomatic menopausal or female climacteric sta eulalia 08/21/2008 07/23/2010 documented as of this encounter (statuses as of 02/20/2022) [facility] History of Past illness Narrative* Problem Noted Date Resolved Date Postoperative pain 04/13/2020 04/19/2020 Normal pressure hydrocephalus 10/13/2019 Symptomatic menopausal or female climacteric sta eulalia 08/21/2008 07/23/2010 documented as of this encounter (statuses as of 02/21/2022) [facility] History of Past illness Narrative* Problem Noted Date Resolved Date Postoperative pain 04/13/2020 04/19/2020 Normal pressure hydrocephalus 10/13/2019 Symptomatic menopausal or female climacteric sta eulalia 08/21/2008 07/23/2010 documented as of this encounter (statuses as of 02/24/2022) [facility] History of Past illness Narrative* Problem Noted Date Resolved Date Postoperative pain 04/13/2020 04/19/2020 Normal pressure hydrocephalus 10/13/2019 Symptomatic menopausal or female climacteric sta eulalia 08/21/2008 07/23/2010 documented as of this encounter (statuses as of 02/25/2022) [facility] History of Past illness Narrative* Problem Noted Date Resolved Date Postoperative pain 04/13/2020 04/19/2020 Normal pressure hydrocephalus 10/13/2019 Symptomatic menopausal or female climacteric sta eulalia 08/21/2008 07/23/2010 documented as of this encounter (statuses as of 02/26/2022) [facility] History of Past illness Narrative* Problem Noted Date Resolved Date Postoperative pain 04/13/2020 04/19/2020 Normal pressure hydrocephalus 10/13/2019 Symptomatic menopausal or female climacteric sta eulalia 08/21/2008 07/23/2010 documented as of this encounter (statuses as of 02/26/2022) [facility] History of Past illness Narrative* Problem Noted Date Resolved Date Postoperative pain 04/13/2020 04/19/2020 Normal pressure hydrocephalus 10/13/2019 Symptomatic menopausal or female climacteric sta eulalia 08/21/2008 07/23/2010 documented as of this encounter (statuses as of 02/28/2022) [facility] History of Past illness Narrative* Problem Noted Date Resolved Date Postoperative pain 04/13/2020 04/19/2020 Normal pressure hydrocephalus 10/13/2019 Symptomatic menopausal or female climacteric sta eulalia 08/21/2008 07/23/2010 documented as of this encounter (statuses as of 03/03/2022) [address]-2020 History of Past illness Narrative* Problem Noted Date Resolved Date Postoperative pain 04/13/2020 04/19/2020 Normal pressure hydrocephalus 10/13/2019 Symptomatic menopausal or female climacteric sta eulalia 08/21/2008 07/23/2010 documented as of this encounter (statuses as of 03/03/2022) [facility] History of Past illness Narrative* Problem Noted Date Resolved Date Postoperative pain 04/13/2020 04/19/2020 Normal pressure hydrocephalus 10/13/2019 Symptomatic menopausal or female climacteric sta eulalia 08/21/2008 07/23/2010 documented as of this encounter (statuses as of 03/06/2022) [facility] History of Past illness Narrative* Problem Noted Date Resolved Date Postoperative pain 04/13/2020 04/19/2020 Normal pressure hydrocephalus 10/13/2019 Symptomatic menopausal or female climacteric sta eulalia 08/21/2008 07/23/2010 documented as of this encounter (statuses as of 03/06/2022) [address]-2020 History of Past illness Narrative* Problem Noted Date Resolved Date Postoperative pain 04/13/2020 04/19/2020 Normal pressure hydrocephalus 10/13/2019 Symptomatic menopausal or female climacteric sta eulalia 08/21/2008 07/23/2010 documented as of this encounter (statuses as of 03/06/2022) [facility] History of Past illness Narrative* Problem Noted Date Resolved Date Postoperative pain 04/13/2020 04/19/2020 Normal pressure hydrocephalus 10/13/2019 Symptomatic menopausal or female climacteric sta eulalia 08/21/2008 07/23/2010 documented as of this encounter (statuses as of 05/26/2022) [facility] History of Past illness Narrative* Problem Noted Date Resolved Date Postoperative pain 04/13/2020 04/19/2020 Normal pressure hydrocephalus 10/13/2019 Symptomatic menopausal or female climacteric sta eulalia 08/21/2008 07/23/2010 documented as of this encounter (statuses as of 06/07/2022) [facility] History of Past illness Narrative* Problem Noted Date Resolved Date Postoperative pain 04/13/2020 04/19/2020 Normal pressure hydrocephalus 10/13/2019 Symptomatic menopausal or female climacteric sta eulalia 08/21/2008 07/23/2010 documented as of this encounter (statuses as of 07/16/2022) [address]-2020 History of Past illness Narrative* Problem Noted Date Resolved Date Postoperative pain 04/13/2020 04/19/2020 Normal pressure hydrocephalus 10/13/2019 Symptomatic menopausal or female climacteric sta eulalia 08/21/2008 07/23/2010 documented as of this encounter (statuses as of 07/22/2022) [address]-2020 History of Past illness Narrative* Problem Noted Date Resolved Date Postoperative pain 04/13/2020 04/19/2020 Normal pressure hydrocephalus 10/13/2019 Symptomatic menopausal or female climacteric sta eulalia 08/21/2008 07/23/2010 documented as of this encounter (statuses as of 07/22/2022) [facility] History of Past illness Narrative* Problem Noted Date Resolved Date Postoperative pain 04/13/2020 04/19/2020 Normal pressure hydrocephalus 10/13/2019 Symptomatic menopausal or female climacteric sta eulalia 08/21/2008 07/23/2010 documented as of this encounter (statuses as of 07/30/2022) [facility] History of Past illness Narrative* Problem Noted Date Resolved Date Postoperative pain 04/13/2020 04/19/2020 Normal pressure hydrocephalus 10/13/2019 Symptomatic menopausal or female climacteric sta eulalia 08/21/2008 07/23/2010 documented as of this encounter (statuses as of 07/30/2022) [address]-2020 History of Past illness Narrative* Problem Noted Date Resolved Date Postoperative pain 04/13/2020 04/19/2020 Normal pressure hydrocephalus 10/13/2019 Symptomatic menopausal or female climacteric sta eulalia 08/21/2008 07/23/2010 documented as of this encounter (statuses as of 08/06/2022) [address]-2020 History of Past illness Narrative* Problem Noted Date Resolved Date Postoperative pain 04/13/2020 04/19/2020 Normal pressure hydrocephalus 10/13/2019 Symptomatic menopausal or female climacteric sta eulalia 08/21/2008 07/23/2010 documented as of this encounter (statuses as of 09/18/2022) [address]-2020 History of Past illness Narrative* Problem Noted Date Resolved Date Postoperative pain 04/13/2020 04/19/2020 Normal pressure hydrocephalus 10/13/2019 Symptomatic menopausal or female climacteric sta eulalia 08/21/2008 07/23/2010 documented as of this encounter (statuses as of 10/01/2022) [address]07-2020 History of Past illness Narrative* Problem Noted Date Resolved Date Postoperative pain 04/13/2020 04/19/2020 Normal pressure hydrocephalus 10/13/2019 Symptomatic menopausal or female climacteric sta eulalia 08/21/2008 07/23/2010 documented as of this encounter (statuses as of 10/03/2022) [address]07-2020 History of Past illness Narrative* Problem Noted Date Resolved Date Postoperative pain 04/13/2020 04/19/2020 Normal pressure hydrocephalus 10/13/2019 Symptomatic menopausal or female climacteric sta eulalia 08/21/2008 07/23/2010 documented as of this encounter (statuses as of 10/15/2022) [address]-2020 History of Past illness Narrative* Problem Noted Date Resolved Date Postoperative pain 04/13/2020 04/19/2020 Normal pressure hydrocephalus 10/13/2019 Symptomatic menopausal or female climacteric sta eulalia 08/21/2008 07/23/2010 documented as of this encounter (statuses as of 10/22/2022) [address]-2020 History of Past illness Narrative* Problem Noted Date Resolved Date Postoperative pain 04/13/2020 04/19/2020 Normal pressure hydrocephalus 10/13/2019 Symptomatic menopausal or female climacteric sta eulalia 08/21/2008 07/23/2010 documented as of this encounter (statuses as of 10/27/2022) [address]-2020 History of Past illness Narrative* Problem Noted Date Resolved Date Postoperative pain 04/13/2020 04/19/2020 Normal pressure hydrocephalus 10/13/2019 Symptomatic menopausal or female climacteric sta eulalia 08/21/2008 07/23/2010 documented as of this encounter (statuses as of 12/26/2022) [facility] History of Past illness Narrative* Problem Noted Date Resolved Date Postoperative pain 04/13/2020 04/19/2020 Normal pressure hydrocephalus 10/13/2019 Symptomatic menopausal or female climacteric sta eulalia 08/21/2008 07/23/2010 documented as of this encounter (statuses as of 01/07/2023) [facility] History of Past illness Narrative* Problem Noted Date Resolved Date Postoperative pain 04/13/2020 04/19/2020 Normal pressure hydrocephalus 10/13/2019 Symptomatic menopausal or female climacteric sta eulalia 08/21/2008 07/23/2010 documented as of this encounter (statuses as of 01/14/2023) [address]-2020 History of Past illness Narrative* Problem Noted Date Resolved Date Postoperative pain 04/13/2020 04/19/2020 Normal pressure hydrocephalus 10/13/2019 Symptomatic menopausal or female climacteric sta eulalia 08/21/2008 07/23/2010 documented as of this encounter (statuses as of 01/14/2023) [facility] History of Past illness Narrative* Problem Noted Date Resolved Date Postoperative pain 04/13/2020 04/19/2020 Normal pressure hydrocephalus 10/13/2019 Symptomatic menopausal or female climacteric sta eulalia 08/21/2008 07/23/2010 documented as of this encounter (statuses as of 01/15/2023) [facility] History of Past illness Narrative* Problem Noted Date Resolved Date Postoperative pain 04/13/2020 04/19/2020 Normal pressure hydrocephalus 10/13/2019 Symptomatic menopausal or female climacteric sta eulalia 08/21/2008 07/23/2010 documented as of this encounter (statuses as of 01/16/2023) [facility] History of Past illness Narrative* Problem Noted Date Resolved Date Postoperative pain 04/13/2020 04/19/2020 Normal pressure hydrocephalus 10/13/2019 Symptomatic menopausal or female climacteric sta eulalia 08/21/2008 07/23/2010 documented as of this encounter (statuses as of 02/03/2023) [address]-2020 History of Past illness Narrative* Problem Noted Date Resolved Date Postoperative pain 04/13/2020 04/19/2020 Normal pressure hydrocephalus 10/13/2019 Symptomatic menopausal or female climacteric sta eulalia 08/21/2008 07/23/2010 documented as of this encounter (statuses as of 02/06/2023) [facility] History of Past illness Narrative* Problem Noted Date Resolved Date Postoperative pain 04/13/2020 04/19/2020 Normal pressure hydrocephalus 10/13/2019 Symptomatic menopausal or female climacteric sta eulalia 08/21/2008 07/23/2010 documented as of this encounter (statuses as of 02/06/2023) [facility] History of Past illness Narrative* Problem Noted Date Resolved Date Postoperative pain 04/13/2020 04/19/2020 Normal pressure hydrocephalus 10/13/2019 Symptomatic menopausal or female climacteric sta eulalia 08/21/2008 07/23/2010 documented as of this encounter (statuses as of 02/06/2023) [address]07-2020 History of Past illness Narrative* Problem Noted Date Resolved Date Postoperative pain 04/13/2020 04/19/2020 Normal pressure hydrocephalus 10/13/2019 Symptomatic menopausal or female climacteric sta eulalia 08/21/2008 07/23/2010 documented as of this encounter (statuses as of 02/07/2023) [facility] History of Past illness Narrative* Problem Noted Date Diagnosed Date Resolved Date Postoperative pain 04/13/2020 0 Normal pressure hydrocephalus 10/13/2019 04/19/2020 Symptomatic menopausal or fe male climacteric states 08/21/2008 07/23/2010 documented as of this encounter (statuses as of 04/03/2023) [address]-2020 History of Past illness Narrative* Problem Noted Date Diagnosed Date Resolved Date Postoperative pain 04/13/2020 0 Normal pressure hydrocephalus 10/13/2019 04/19/2020 Symptomatic menopausal or fe male climacteric states 08/21/2008 07/23/2010 documented as of this encounter (statuses as of 04/18/2023) [address]07-2020 History of Past illness Narrative* Problem Noted Date Diagnosed Date Resolved Date Postoperative pain 04/13/2020 0 Normal pressure hydrocephalus 10/13/2019 04/19/2020 Symptomatic menopausal or fe male climacteric states 08/21/2008 07/23/2010 documented as of this encounter (statuses as of 04/22/2023) [facility] History of Past illness Narrative* Problem Noted Date Diagnosed Date Resolved Date Postoperative pain 04/13/2020 0 Normal pressure hydrocephalus 10/13/2019 04/19/2020 Symptomatic menopausal or fe male climacteric states 08/21/2008 07/23/2010 documented as of this encounter (statuses as of 05/07/2023) [facility] noteNo assessment information availableWMercer [facility] Work Phone: Evaluation note* Diagnosis Depressive disorder Depressive disorder, not elsewhere classified Vascular parkinsonism (HCC) Paralysis agitans [facility]* Diagnosis Controlled type 2 diabetes mellitus without complication, without long-term current use of insulin ([facility])- Primary Hyperlipidemia, unspecified hyperlipidemia type Depressive disorder Depressive disorder, not elsewhere classified Essential hypertension, benign Memory difficulties Memory loss Female stress incontinence [facility]* Diagnosis Onset Date Resolution Status Dizziness acute History of diabetes mellitus acute History of hydrocephalus acu te Orthostatic hypotension acut e Unable to ambulate [facility] Work Phone: Evaluation note* Diagnosis Onset Date Resolution Status Dehydration acute Dizziness acute Orthostatic hypotension acut e Unable to ambulate [facility] Work Phone: Evaluation note* Diagnosis S/P SURGICAL SCRUB TECHNICIAN shunt- Primary Presence of cerebrospinal fluid drainage device Other hydrocephalus (HCC) [facility]* Diagnosis Hospital discharge follow-up- Primary Other follow-up examination Orthostatic hypertension Nausea and vomiting, unspecified vomiting type Cervical spondylosis Cervical spondylosis without myelopathy Neural foraminal stenosis of cervical spine Spinal stenosis in cervical region Bilateral hand numbness Disturbance of skin sensation Vascular parkinsonism (HCC) Paralysis agitans [facility]* Diagnosis NPH (normal pressure hydrocephalus) (HCC)- Primary Idiopathic normal pressure hydrocephalus (INPH) Dehydration Adverse effects of medication, initial encounter documented [facility]* Diagnosis Other hydrocephalus (HCC) [facility]* Diagnosis Major neurocognitive disorder (HCC)- Primary Unspecified persistent mental disorders due to conditions classified elsewhere NPH (normal pressure hydrocephalus) (HCC) Idiopathic normal pressure hydrocephalus (INPH) Controlled type 2 diabetes mellitus without complication, without long-term current use of insulin (HCC) Depression, unspecified depression type [facility] Diagnosis Hyperlipidemia, unspecified hyperlipidemia type- Primary Essential hypertension, benign Female stress incontinence Controlled type 2 diabetes mellitus without complication, without long-term current use of insulin (HCC) Depressive disorder Depressive disorder, not elsewhere classified NPH (normal pressure hydrocephalus) (HCC) Idiopathic normal pressure hydrocephalus (INPH) Dementia without behavioral disturbance, psychotic disturbance, mood disturbance, or anxiety, unspecified dementia severity, unspecified dementia type ([facility]) [facility]* Diagnosis Encounter for gynecological examination (general) (routine) without abnormal findings- Primary Encounter for screening for osteoporosis Special screening for osteoporosis Unspecified menopausal and perimenopausal disorder [facility]* Diagnosis Female stress incontinence- Primary [facility] Diagnosis Female stress incontinence documented [facility]* Diagnosis Controlled type 2 diabetes mellitus without complication, without long-term current use of insulin (HCC) documented [facility]* Diagnosis 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)- Primary Other persistent mental disorders due to conditions classified elsewhere [facility]* Diagnosis Female stress incontinence- Primary [facility]* Diagnosis Urine retention- Primary Retention of urine, unspecified Mixed stress and urge urinary incontinence Mixed incontinence urge and stress (male)(female) Vascular parkinsonism (HCC) Paralysis agitans [facility]* Diagnosis Female stress incontinence [facility]* Diagnosis Depressive disorder Depressive disorder, not elsewhere classified [facility]* Diagnosis Controlled type 2 diabetes mellitus without complication, without long-term current use of insulin (HCC) [facility]* Diagnosis Other hydrocephalus (HCC)- Primary [facility]* Diagnosis 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)- Primary Other persistent mental disorders due to conditions classified elsewhere NPH (normal pressure hydrocephalus) (HCC) Idiopathic normal pressure hydrocephalus (INPH) S/P SURGICAL SCRUB TECHNICIAN shunt Presence of cerebrospinal fluid drainage device Major depressive disorder, recurrent, in partial remission (HCC) Major depressive disorder, recurrent episode, in partial or unspecified remission Female stress incontinence [facility]* Diagnosis Other hydrocephalus (HCC) documented in this encounter [facility] note* Diagnosis Controlled type 2 diabetes mellitus without complication, without long-term current use of insulin (HCC) [facility]* Diagnosis Cervical spondylosis Cervical spondylosis without myelopathy Neural foraminal stenosis of cervical spine Spinal stenosis in cervical region Bilateral hand numbness Disturbance of skin sensation documented in this encounter [facility] note* Diagnosis 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 behavioral disturbance ([facility])- Primary Other persistent mental disorders due to conditions classified elsewhere Controlled type 2 diabetes mellitus without complication, without long-term current use of insulin (HCC) Balance problem Other symptoms involving nervous and musculoskeletal systems Hyperlipidemia, unspecified hyperlipidemia type Chronic constipation Unspecified constipation Female stress incontinence Cervical spondylosis Cervical spondylosis without myelopathy Depressive disorder Depressive disorder, not elsewhere classified documented in this encounter [facility] note* Diagnosis Diabetes mellitus type 2, controlled, without complications (HCC) Type II or unspecified type diabetes mellitus without mention of complication, not stated as uncontrolled Hyperlipidemia Other and unspecified hyperlipidemia Depressive disorder Depressive disorder, not elsewhere classified NPH (normal pressure hydrocephalus) ([facility])- Primary Idiopathic normal pressure hydrocephalus (INPH) Postoperative pain Other acute postoperative pain NPH (normal pressure hydrocephalus) (HCC) Idiopathic normal pressure hydrocephalus (INPH) Obesity, Class I, BMI 30-34.9 Obesity, unspecified COVID-19 History of pneumonia Personal history of pneumonia (recurrent) [facility] Diagnosis Diabetes mellitus type 2, controlled, [...] [facility] Work Phone: Reason for referral (narrative)* Diagnostic Procedure Only (Routine) - Authorized Specialty Diagnoses / Procedures Referred By Keysha t Referred To Contact US IMAGING Diagnoses Mixed stress and urge urinary incontinence Urine retention Procedures US KIDNEY/BLADDER US RETROPERITONEAL REAL TIME W/IMAGE COMPLETE Cristine Puri, CYTOLOGY TEACHER [address] [place] [address] Us Imaging Referral ID Status Reason Start Date Expiration Date Visits Requested Visits Authorized [id number] Authorized Auto-Generat ed Referral 01/07/2023 02/06/2024 1 1 [facility] ([facility])No reason for referral information availableWMercer County [facility] Hospital Work Phone: Chief Complaint and Reason for Visit Chief Complaint SCREENING GENERAL ILLNESS COVID POS Chief Complaint LIGHTHEADNESS Reason for Visit Dizziness History of diabetes mellitus History of hydrocephalus Orthostatic hypotension Unable to ambulate Chief Complaint LIGHTHEADNESS LIGHTHEADNESS LIGHTHEADNESS LIGHTHEADNESS Reason for Visit Dehydration Dizziness Orthostatic hypotension Unable to ambulate Chief Complaint INTERMEDIATE LAB WOR K LABWORK Chief Complaint INTERMEDIATE LAB WOR K NEW CONCERN LABWORK INTERMEDIATE LABWORK Chief Complaint NEW CONCERN LABWORK INTERMEDIATE LABWORK INTERMEDIATE LAB WORK Chief Complaint INTERMEDIATE LABWORK NEW CONCERN INTERMEDIATE LAB WORK LABWORK Chief Complaint Admit Date INTERMEDIATE LAB WORK November 02 5:00am Chief Complaint Admit Date INTERMEDIATE LAB WORK November 02 5:00am INTERMEDIATE LAB WORK January 31, 2025 5:0 0am NEW CONCERN February 01, 2025 11:53 am Chief Complaint Admit Date INTERMEDIATE LAB WORK January 31, 2025 5:0 0am NEW CONCERN February 01, 2025 11:53 am New Concern February 16, 2025 4:05 pm Chief Complaint Admit Date INTERMEDIATE LAB WORK January 31, 2025 5:0 0am NEW CONCERN February 01, 2025 11:53 am New Concern February 16, 2025 4:05 pm NEW CONCERN April 10, 2025 3:4 9pm Advance Directives Advance Directive Response Recorded Date/ Time Living Will Yes September 04, 021 1:55pm Power of Clam Bed Laborer Yes September 04, 2021 1:55pm Documents on File Type Date Recorded Patient Haulpak Driver Expl anation Advance Directive(s) 03/20/2020 4:10 PM Advance Directive(s) 03/20/2020 4:11 PM Advance Directive(s) 03/02/2020 3:38 PM Advance Directive(s) 02/15/2020 3:49 PM Advance Directive(s) 01/27/2020 10:30 AM Advance Directive(s) 11/25/2019 1:12 PM Advance Directive Response Recorded Date/ Time Living Will Yes February 21, 2022 6:00pm Power of Clam Bed Laborer Yes February 21 6:00pm Name of Medical Power of Clam Bed Laborer roselyn reyes off-daughter February 21, 2022 6:00pm Advance Directive Response Recorded Date/ Time Name of Medical Power of Clam Bed Laborer Roselyn Reyes off February 21, 2022 11:13pm Living Will Yes February 21, 2022 11:13pm Power of Clam Bed Laborer Yes February 21 11:13pm Documents on File Type Date Recorded Patient Haulpak Driver Expl anation Advance Directive(s) 03/20/2020 4:10 PM Advance Directive(s) 03/20/2020 4:11 PM Advance Directive(s) 03/02/2020 3:38 PM Advance Directive(s) 02/15/2020 3:49 PM Advance Directive(s) 01/27/2020 10:30 AM Advance Directive(s) 11/25/2019 1:12 PM Documents on File Type Date Recorded Patient Haulpak Driver Expl anation Advance Directive(s) 03/20/2020 4:11 PM Documents on File Type Date Recorded Patient Haulpak Driver Expl anation Advance Directive(s) 03/20/2020 4:11 PM Advance Directive Response Recorded Date/ Time Living Will No July 22 11:42pm Power of Clam Bed Laborer No July 22, 2022 11:42pm Advance Directive Response Recorded Date/ Time Living Will No July 22 10:42pm Power of Clam Bed Laborer No July 22, 2022 10:42pm Reason for Referral Specialty Diagnoses / Procedures Referred By Contac t Referred To Contact CT IMAGING Diagnoses Other hydrocephalus (HCC) S/P SURGICAL SCRUB TECHNICIAN shunt Procedures CT BRAIN WO IVCON CT HEAD/BRAIN W/O CONTRAST MATERIAL Orestes Hernandez PA-C [address] [place] [address] Ct Imaging Referral ID Status Reason Start Date Expiration Date Visits Requested Visits Authorized [id number] Pending Review Auto-Generat ed Referral 02/26/2022 03/28/2023 1 1 Specialty Diagnoses / Procedures Referred By Contac t Referred To Contact CT IMAGING Diagnoses Other hydrocephalus (HCC) Procedures CT BRAIN WO IVCON CT HEAD/BRAIN W/O CONTRAST MATERIAL Ramírez Leavitt PA-C [address] [place] [address] Ct Imaging Referral ID Status Reason Start Date Expiration Date Visits Requested Visits Authorized [id number] Pending Review Auto-Generat ed Referral 03/06/2022 04/05/2023 1 1 Specialty Diagnoses / Procedures Referred By Contac t Referred To Contact Urology Diagnoses Female stress incontinence Procedures CONSULT TO UROLOGY OFFICE/OUTPATIENT [facility] 60-74 MINUTES Harsh Mcnair MD [address] [place] [address] Referral ID Status Reason Start Date Expiration Date Visits Requested Visits Authorized [id number] Authorized PCP Requested Referral 12/25/2022 12/25/2023 1 1 Referral ID Status Reason Start Date Expiration Date Visits Requested Visits Authorized [id number] Pending Review Auto-Generat ed Referral 02/05/2023 03/06/2024 1 1 Referral ID Status Reason Start Date Expiration Date V isits Requested Visits Authorized [id number] Closed Auto-Generate d Referral 03/06/2022 04/05/2023 1 [...] or prosecute any alcohol or drug abuse patient.[facility] CenterIn the event this information is protected by the Federal Confidentiality of Alcohol and Drug Abuse Patient Records regulations: The Federal rules restrict any use of the information to criminally investigate or prosecute any alcohol or drug abuse patient.[facility] CenterIn the event this information is protected by the Federal Confidentiality of Alcohol and Drug Abuse Patient Records regulations: The Federal rules restrict any use of the information to criminally investigate or prosecute any alcohol or drug abuse patient.[facility] CenterIn the event this information is protected by the Federal Confidentiality of Alcohol and Drug Abuse Patient Records regulations: The Federal rules restrict any use of the information to criminally investigate or prosecute any alcohol or drug abuse patient.[facility] CenterIn the event this information is protected by the Federal Confidentiality of Alcohol and Drug Abuse Patient Records regulations: The Federal rules restrict any use of the information to criminally investigate or prosecute any alcohol or drug abuse patient.[facility] CenterIn the event this information is protected by the Federal Confidentiality of Alcohol and Drug Abuse Patient Records regulations: The Federal rules restrict any use of the information to criminally investigate or prosecute any alcohol or drug abuse patient.[facility] CenterIn the event this information is protected by the Federal Confidentiality of Alcohol and Drug Abuse Patient Records regulations: The Federal rules restrict any use of the information to criminally investigate or prosecute any alcohol or drug abuse patient.[facility] CenterIn the event this information is protected by the Federal Confidentiality of Alcohol and Drug Abuse Patient Records regulations: The Federal rules restrict any use of the information to criminally investigate or prosecute any alcohol or drug abuse patient.[facility] CenterIn the event this information is protected by the Federal Confidentiality of Alcohol and Drug Abuse Patient Records regulations: The Federal rules restrict any use of the information to criminally investigate or prosecute any alcohol or drug abuse patient.[facility] CenterIn the event this information is protected by the Federal Confidentiality of Alcohol and Drug Abuse Patient Records regulations: The Federal rules restrict any use of the information to criminally investigate or prosecute any alcohol or drug abuse patient.[facility] CenterIn the event this information is protected by the Federal Confidentiality of Alcohol and Drug Abuse Patient Records regulations: The Federal rules restrict any use of the information to criminally investigate or prosecute any alcohol or drug abuse patient.[facility] CenterIn the event this information is protected by the Federal Confidentiality of Alcohol and Drug Abuse Patient Records regulations: The Federal rules restrict any use of the information to criminally investigate or prosecute any alcohol or drug abuse patient.[facility] CenterIn the event this information is protected by the Federal Confidentiality of Alcohol and Drug Abuse Patient Records regulations: The Federal rules restrict any use of the information to criminally investigate or prosecute any alcohol or drug abuse patient.[facility] CenterIn the event this information is protected by the Federal Confidentiality of Alcohol and Drug Abuse Patient Records regulations: The Federal rules restrict any use of the information to criminally investigate or prosecute any alcohol or drug abuse patient.[facility] CenterIn the event this information is protected by the Federal Confidentiality of Alcohol and Drug Abuse Patient Records regulations: The Federal rules restrict any use of the information to criminally investigate or prosecute any alcohol or drug abuse patient.[facility] CenterIn the event this information is protected by the Federal Confidentiality of Alcohol and Drug Abuse Patient Records regulations: The Federal rules restrict any use of the information to criminally investigate or prosecute any alcohol or drug abuse patient.[facility] CenterIn the event this information is protected by the Federal Confidentiality of Alcohol and Drug Abuse Patient Records regulations: The Federal rules restrict any use of the information to criminally investigate or prosecute any alcohol or drug abuse patient.[facility] CenterIn the event this information is protected by the Federal Confidentiality of Alcohol and Drug Abuse Patient Records regulations: The Federal rules restrict any use of the information to criminally investigate or prosecute any alcohol or drug abuse patient.[facility] CenterIn the event this information is protected by the Federal Confidentiality of Alcohol and Drug Abuse Patient Records regulations: The Federal rules restrict any use of the information to criminally investigate or prosecute any alcohol or drug abuse patient.[facility] CenterIn the event this information is protected by the Federal Confidentiality of Alcohol and Drug Abuse Patient Records regulations: The Federal rules restrict any use of the information to criminally investigate or prosecute any alcohol or drug abuse patient.[facility] CenterIn the event this information is protected by the Federal Confidentiality of Alcohol and Drug Abuse Patient Records regulations: The Federal rules restrict any use of the information to criminally investigate or prosecute any alcohol or drug abuse patient.[facility] CenterIn the event this information is protected by the Federal Confidentiality of Alcohol and Drug Abuse Patient Records regulations: The Federal rules restrict any use of the information to criminally investigate or prosecute any alcohol or drug abuse patient.[facility] CenterIn the event this information is protected by [...] or prosecute any alcohol or drug abuse patient.[facility] CenterIn the event this information is protected by the Federal Confidentiality of Alcohol and Drug Abuse Patient Records regulations: The Federal rules restrict any use of the information to criminally investigate or prosecute any alcohol or drug abuse patient.[facility] CenterIn the event this information is protected by the Federal Confidentiality of Alcohol and Drug Abuse Patient Records regulations: The Federal rules restrict any use of the information to criminally investigate or prosecute any alcohol or drug abuse patient.[facility] CenterIn the event this information is protected by the Federal Confidentiality of Alcohol and Drug Abuse Patient Records regulations: The Federal rules restrict any use of the information to criminally investigate or prosecute any alcohol or drug abuse patient.[facility] CenterIn the event this information is protected by the Federal Confidentiality of Alcohol and Drug Abuse Patient Records regulations: The Federal rules restrict any use of the information to criminally investigate or prosecute any alcohol or drug abuse patient.[facility] CenterIn the event this information is protected by the Federal Confidentiality of Alcohol and Drug Abuse Patient Records regulations: The Federal rules restrict any use of the information to criminally investigate or prosecute any alcohol or drug abuse patient.[facility] CenterIn the event this information is protected by the Federal Confidentiality of Alcohol and Drug Abuse Patient Records regulations: The Federal rules restrict any use of the information to criminally investigate or prosecute any alcohol or drug abuse patient.[facility] CenterIn the event this information is protected by the Federal Confidentiality of Alcohol and Drug Abuse Patient Records regulations: The Federal rules restrict any use of the information to criminally investigate or prosecute any alcohol or drug abuse patient.[facility] CenterIn the event this information is protected by the Federal Confidentiality of Alcohol and Drug Abuse Patient Records regulations: The Federal rules restrict any use of the information to criminally investigate or prosecute any alcohol or drug abuse patient.[facility] CenterIn the event this information is protected by the Federal Confidentiality of Alcohol and Drug Abuse Patient Records regulations: The Federal rules restrict any use of the information to criminally investigate or prosecute any alcohol or drug abuse patient.[facility] CenterIn the event this information is protected by the Federal Confidentiality of Alcohol and Drug Abuse Patient Records regulations: The Federal rules restrict any use of the information to criminally investigate or prosecute any alcohol or drug abuse patient.[facility] CenterIn the event this information is protected by the Federal Confidentiality of Alcohol and Drug Abuse Patient Records regulations: The Federal rules restrict any use of the information to criminally investigate or prosecute any alcohol or drug abuse patient.[facility] CenterIn the event this information is protected by the Federal Confidentiality of Alcohol and Drug Abuse Patient Records regulations: The Federal rules restrict any use of the information to criminally investigate or prosecute any alcohol or drug abuse patient.[facility] CenterIn the event this information is protected by the Federal Confidentiality of Alcohol and Drug Abuse Patient Records regulations: The Federal rules restrict any use of the information to criminally investigate or prosecute any alcohol or drug abuse patient.[facility] CenterIn the event this information is protected by the Federal Confidentiality of Alcohol and Drug Abuse Patient Records regulations: The Federal rules restrict any use of the information to criminally investigate or prosecute any alcohol or drug abuse patient.[facility] CenterIn the event this information is protected by the Federal Confidentiality of Alcohol and Drug Abuse Patient Records regulations: The Federal rules restrict any use of the information to criminally investigate or prosecute any alcohol or drug abuse patient.[facility] CenterIn the event this information is protected by the Federal Confidentiality of Alcohol and Drug Abuse Patient Records regulations: The Federal rules restrict any use of the information to criminally investigate or prosecute any alcohol or drug abuse patient.[facility] CenterIn the event this information is protected by the Federal Confidentiality of Alcohol and Drug Abuse Patient Records regulations: The Federal rules restrict any use of the information to criminally investigate or prosecute any alcohol or drug abuse patient.[facility] CenterIn the event this information is protected by the Federal Confidentiality of Alcohol and Drug Abuse Patient Records regulations: The Federal rules restrict any use of the information to criminally investigate or prosecute any alcohol or drug abuse patient.[facility] CenterIn the event this information is protected by the Federal Confidentiality of Alcohol and Drug Abuse Patient Records regulations: The Federal rules restrict any use of the information to criminally investigate or prosecute any alcohol or drug abuse patient.[facility] CenterIn the event this information is protected by the Federal Confidentiality of Alcohol and Drug Abuse Patient Records regulations: The Federal rules restrict any use of the information to criminally investigate or prosecute any alcohol or drug abuse patient.[facility] CenterIn the event this information is protected by the Federal Confidentiality of Alcohol and Drug Abuse Patient Records regulations: The Federal rules restrict any use of the information to criminally investigate or prosecute any alcohol or drug abuse patient.[facility] CenterIn the event this information is protected by the Federal Confidentiality of Alcohol and Drug Abuse Patient Records regulations: The Federal rules restrict any use of the information to criminally investigate or prosecute any alcohol or drug abuse patient.[facility] CenterIn the event this information is protected by the Federal Confidentiality of Alcohol and Drug Abuse Patient Records regulations: The Federal rules restrict any use of the information to criminally investigate or prosecute any alcohol or drug abuse patient.[facility] Reason for Visit (unrecogniz ed section and [...] MDM 60-74 MINUTES Harsh Mcnair MD [address] [place] [address] Referral ID Status Reason Start Date Expiration Date V isits Requested Visits Authorized [id number] Closed PCP Requested Referral 12/25/2022 12/25/2023 1 1 Reason Comments Refill Request Reason Comments Patient Question Reason Onset Date Comments Refill Request 01/15/[address] Specialty Diagnoses / Procedures Referred By Keysha t Referred To Contact CT IMAGING Diagnoses Other hydrocephalus (HCC) Procedures CT BRAIN WO IVCON CT HEAD/BRAIN W/O CONTRAST MATERIAL Ramírez Leavitt PA-C [address] [place] [address] Ct Imaging Referral ID Status Reason Start Date Expiration Date V isits Requested Visits Authorized [id number] Closed Auto-Generate d Referral 03/06/2022 04/05/2023 1 1 Reason Comments Medication Problem Reason Onset Date Comments Refill Request 04/02/2023 Reason Comments [facility] Reason Comments medication quesitons Reason Comments Forms [employer]-CPAP suppl ies Care Teams (unrecognized sec tion and content) Market Director Relationship Specialty Start Date End Date Harsh Mcnair MD [address] [place] [address] PCP - General 07/16/09 Market Director Relationship Specialty [place] [address] [place] [address] PCP - General 07/16/09 Market Director Relationship Specialty Start Date End Date Harsh Mcnair MD [address] [place] [address] PCP - General 07/16/09 Market Director Relationship Specialty Start Date End Date Harsh Mcnair MD [address] [place] [address] PCP - General 07/16/09 Market Director Relationship Specialty Start Date End Date Harsh Mcnair MD [address] [place] [address] PCP - General 07/16/09 Market Director Relationship Specialty Start Date End Date Harsh Mcnair MD [address] [place] [address] PCP - General 07/16/09 Market Director Relationship Specialty Start Date End Date Harsh Mcnair MD [address] [place] [address] PCP - General 07/16/09 Market Director Relationship Specialty Start Date End Date Harsh Mcnair MD [address] [facility] [place] [address] PCP - General 07/16/09 Market Director Relationship Specialty Start Date End Date Harsh Mcnair MD [address] [facility] [place] [address] PCP - General 07/16/09 Market Director Relationship Specialty [place] [address] [place] [address], [place] [address] PCP - General 07/16/09 Market Director Relationship Specialty Start Date End Date Harsh Mcnair MD [address] [place] [address] [place] [address] PCP - General 07/16/09 Market Director Relationship Specialty Start Date End Date Harsh Mcnair MD [address] [place] [address] [place] [address] PCP - General 07/16/09 Market Director Relationship Specialty Start Date End Date Harsh Mcnair MD [facility] [place] [address] PCP - General 07/16/09 Market Director Relationship Specialty Start Date End Date Harsh Mcnair MD [address] [place] [address] [place] [address] PCP - General 07/16/09 Market Director Relationship Specialty Start Date End Date Harsh Mcnair MD [facility] [place] [address] PCP - General 07/16/09 Market Director Relationship Specialty Start Date End Date Harsh Mcnair MD [address] [place] [address], [place] [address] PCP - General 07/16/09 Market Director Relationship Specialty Start Date End Date Harsh Mcnair MD [address] [place] [address] PCP - General 07/16/09 Market Director Relationship Specialty Start Date End Date Harsh Mcnair MD [address] [facility] [place] [address] PCP - General 07/16/09 Market Director Relationship Specialty Start Date End Date Harsh Mcnair MD [address] [facility] [place] [address] PCP - General 07/16/09 Market Director Relationship Specialty Start Date End Date Harsh Mcnair MD [address] [facility] [place] [address] PCP - General 07/16/09 Market Director Relationship Specialty Start Date End Date Harsh Mcnair MD [address] [facility] [place] [address] PCP - General 07/16/09 Market Director Relationship Specialty Start Date End Date Harsh Mcnair MD [address] [facility] [place] [address] PCP - General 07/16/09 Market Director Relationship Specialty Start Date End Date Harsh Mcnair MD [address] [facility] [place] [address] PCP - General 07/16/09 Market Director Relationship Specialty Start Date End Date Harsh Mcnair MD [address] [facility] [place] [address] PCP - General 07/16/09 Market Director Relationship Specialty Start Date End Date Harsh Mcnair MD [address] [facility] [place] [address] PCP - General 07/16/09 Market Director Relationship Specialty Start Date End Date Harsh Mcnair MD [address] [place], [place] [address] PCP - General 07/16/09 Market Director Relationship Specialty Start Date End Date Harsh Mcnair MD [address] [place], [place] [address] PCP - General 07/16/09 Team Status: Active [...] MD Primary Care Provider Active Kathya Underwood SALES REPRESENTATIVE JEWELRY, SALES REPRESENTATIVE JEWELRY-C Attending Provider Active Team Status: Inactive Member Role Status Dates Dr. Harsh Mcnair MD Primary Care Provider Active Manpreet DICKINSON MD Attending Provider, Referring Provider Active Market Director Relationship Specialty Start Date End Date Harsh Mcnair MD [address] [place] [address] PCP - General 07/16/09 01/14/24 Manpreet Ivy [address] [place] [address] PCP - General 01/15/24 Market Director Relationship Specialty Start Date End Date Harsh Mcnair MD [address] [place], [place] [id number] PCP - General 07/16/09 01/14/24 Market Director Relationship Specialty Start Date End Date Harsh Mcnair MD [address] [place], [place] [id number] PCP - General 07/16/09 01/14/24 Team Status: [...] 2025 End: February 01, 2025 Kathya Underwood SALES REPRESENTATIVE JEWELRY, SALES REPRESENTATIVE JEWEL[employer]-C Attending Provider Active Start: February 01, 2025 [...] 2025 End: February 01, 2025 Kathya Underwood SALES REPRESENTATIVE JEWELRY, SALES REPRESENTATIVE JEWELRY-C Attending Provider Active Start: February 01, 2025 End: February 01, 2025 Team Status: Inactive Member Role/Relationship Status Dates Dr. Harsh Mcnair MD Primary Care Provider Active Start: February 16, 2025 End: February 16, 2025 Kathya Underwood SALES REPRESENTATIVE JEWELRY, SALES REPRESENTATIVE JEWELRY-C Attending Provider Active Start: February 16, 2025 End: February 16, 2025 Team Status: Inactive Member Role/Relationship Status Dates Dr. Harsh Mcnair MD Primary Care Provider Active Start: April 10, 2025 End: April 10, 2025 Kathya Underwood SALES REPRESENTATIVE JEWELRY, SALES REPRESENTATIVE JEWELRY-C Attending Provider Active Start: April 10, 2025 End: April 10, 2025 INFORMATION SOURCE (unrecogn ized section and content) DATE CREATED AUTHOR 01/17/2024 [facility] DATE CREATED AUTHOR AUTHOR'S ORGANIZ ATION 03/30/2025 [facility] FOR RECORDS PERTAINING TO PATIENTS WHO ARE [...] BE BASED ON THE PRIMARY CLINICAL RECORDS. [facility] [employer] [facility]. provides no warranty or guarantee of the accuracy or completeness of information in this document.
[2025-05-02 07:10] LABS: Hematocrit 40.6 % (37-47); Hemoglobin 13.5 g/dL (12.0-15.0); Immature Granulocytes Count 0.030 X10^3/uL (0.0-0.0); Mean Corp Hgb Conc 33.3 g/dL (32-36); Mean Corpuscular Volume 87.7 fL (81-99); Mean Platelet Vol. 10.6 fl (6.2-12.0); NRBC Flagged by Analyzer 0 % (0-5); Platelet Count 226 K/mm3 (150-450); RBC Distribution Width CV 13.0 % (11.6-14.6); RBC Distribution Width SD 42.0 fl (35.1-43.9); Red Blood Count 4.63 M/mm3 (4.2-5.4); White Blood Count 10.1 K/mm3 (4.4-11.0)
[2025-05-02 08:31] LABS: Cholesterol 133 mg/dL (<=200); Low Density Lipoprotein Calc. 48 mg/dL; Triglycerides 163 mg/dL; Very Low Density Lipoprotein 33 mg/dL (5-40); cholesterol:hdl ratio screen 2.52
[2025-05-02 08:44] LABS: AST(SGOT) 21 U/L (<=31); Alanine Aminotransfer ALT/SGPT 13 U/L (<=34); Albumin, Serum 4.5 g/dL (3.4-4.8); Alkaline Phosphatase 59 U/L (35-104); Anion Gap 14 (5-15); BUN 20 mg/dL (4-19); BUN/Creat Ratio 17.8 RATIO (10-20); Calcium,Total 10.0 mg/dL (7.6-11.0); Carbon Dioxide 22.3 mmol/L (21.0-32.0); Chloride 102 mmol/L (98-108); Globulin 2.4 g/dL (2.2-4.2); Glucose 97 mg/dL (70-99); Potassium 4.4 mmol/L (3.3-5.1)
== END ==
LOC: OLS.WHLTSB 04:00
PROVIDERS: PCP Family Medicine; Referring Provider Internal Medicine; Visit Provider Internal Medicine
DX: F02.80 Dementia in other diseases classified elsewhere, unspecified severity, without behavioral disturbance, psychotic disturbance, mood disturbance, and anxiety (principal); D18.01 Hemangioma of skin and subcutaneous tissue; L57.0 Actinic keratosis; E11.9 Type 2 diabetes mellitus without complications
CPT/HCPCS: 36415; 80053; 80061; 83036; 85025

== ENCOUNTER → 2025-08-01 | Outpatient (REF) | payer MEDICARE, OTHER, SELFPAY ==
--- OUTSIDE RECORDS SUMMARY | 2025-08-01 03:04 | XMS RPT_ITS | CCD ---
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 Harsh Mcnair Primary Care Provider Yasmine [employer]IGH [employer]CHOOL CHEMISTRY TEACHER, HIGH SCHOOL CHEMISTRY TEACHER-C Kathya Attending Provider Unav ailable Dr. Harsh Mcnair Primary Care Provider Yasmine HIGH SCHOOL CHEMISTRY TEACHER, HIGH SCHOOL CHEMISTRY TEACHER-C Kathya Attending Provider Harsh Mcnair MD Primary Care Provider Manpreet Ivy Primary Care Provider HARSH MCNAIR Primary Care Unavailable RAMÍREZ LEAVITT Referring Unavailable HARSH MCNAIR Primary Care Unavailable HARSH MCNAIR Attending Unavailable KENNETH PARK Attending Unavailable HARSH MCNAIR Primary Care Unavailable HARSH MCNAIR Referring Unavailable HARSH MCNAIR Primary Care Unavailable HARSH MCNAIR Referring Unavailable SCHWIETERMAN, RAMÍREZ Referring Unavailable ELDERHARSH GRUBBS Primary Care Unavailable SCHWIETERMAN, RAMÍREZ Attending Unavailable SCHWIETMURTAZA, RAMÍREZ Referring Unavailable ELDERHARSH GRUBBS Primary Care Unavailable LAQUITA COULTER Attending Unavailable ELDERHARSH GRUBBS Primary Care Unavailable MARCELO MANCINI Attending Unavailable HARSH MCNAIR Primary Care Unavailable SCHWIETERMAN, RAMÍREZ Referring Unavailable HARSH MCNAIR Primary Care Unavailable SCHWMELISSA, RAMÍREZ Attending Unavailable Xu KAY, Dr. Echavarria Primary Care Provider Manpreet Ivy MD Attending Provider Unavailkalli Underwood HIGH SCHOOL CHEMISTRY TEACHER-C, Kathya Attending Provider Xu KAY, Dr. Echavarria Primary Care Provider [phone] Manpreet Ivy MD Attending Provider Unavailkalli Ivy MD, Dr. Case Attending Provider [phone] Manpreet Ivy MD Referring Provider Unavaila Harsh Shannon Primary Care Unavailable Yasmine HIGH SCHOOL CHEMISTRY TEACHER, Kathya Attending Unavailable Harsh Mcnair Primary Care Unavailable Tickmichael HIGH SCHOOL CHEMISTRY TEACHER, Kathya Attending Unavailable Sofiaton HIGH SCHOOL CHEMISTRY TEACHER, Kathya Attending Unavailable Harsh Mcnair Primary Care Unavailable Tickmichael HIGH SCHOOL CHEMISTRY TEACHER, Kathya Attending Unavailable Xu, Harsh Primary Care Unavailable Tickmichael HIGH SCHOOL CHEMISTRY TEACHER, Kathya Attending Unavailable Harsh Mcnair Primary Care Unavailable Xu, Harsh Primary Care Unavailable Oleghe OLS, Efewongbe Attending Unavailabl e Oleghe OLS, Efewongbe Attending Unavailabl e ElderbrockHarsh Primary Care Unavailable Oleghe OLS, Efewongbe Attending Unavailabl e Elderbrock, Harsh Primary Care Unavailable Oleghe OLS, Efewongbe Attending Unavailabl e Elderbrock, Harsh Primary Care Unavailable Elderdanyck, Harsh Primary Care Unavailable Oleghe OLS, Efewongbe Referring Unavailabl e Oleghe OLS, Efewongbe Attending Unavailabl e Elderbrock, Harsh Primary Care Unavailable Oleghe, Efewongbe Attending Unavailable Allergies Allergy Classification Reported Allergen(s) Allergy Type Date of Onset Reaction(s) Facility (20 sources) Iodine; Translations: [IODINE] Drug Allergy 04-30-[address] [facility] Work Phone: (20 sources) Penicillins; Translations: [PENICILLINS] Allergy to substance 03-03-[address] [facility] (1 source) Iodine Drug Allergy 07-22-2022 [facility] Repository Medications Current Medications Medication Drug Class(es) Dates Sig (Normalized) Sig (Original) acetaminophen 325 mg oral tablet (20 sources) Start: 02-16-2020 take 2 tablets by mouth every four hours as needed acetaminophen (TYLENOL) 325 mg tablet Take 2 tablets by mouth every 4 hours as needed. 02/16/2020 Active Comment on above: Take 2 tablets by mo [facility] every 4 hours as needed. aspirin 81 mg delayed release oral tablet (20 sources) Platelet Aggregation Inhibitor, Nonsteroidal Anti-inflammatory Drug Start: 01-10-2019 take 1 tablet by mouth once daily Aspirin 81 mg tablet,delayed release (DR/EC) Active 81 mg PO DAILY January 10, 2019 12:00am Comment on above: Take 1 tablet by thomas th once daily. biotin 10 mg oral tablet (13 sources) Start: 01-10-2019 take 1 tablet by [...] 1 tablet by thomas th once daily. carbidopa 25 mg / levodopa [...] 12:00am Start: 02-22-2022 take 1 tablet by thomas th once daily Carbidopa-Levodopa Active 1 TABLET PO [...] Start: 10-25-2012 take 1 capsule by mo ut once daily Cholecalciferol, Vitamin D3, 1,000 unit [...] tablet by thomas th daily with breakfast. Jctrqgni-Xvlfu-Mrv7- C-[facility] (7 sources) Start: 9 take 1 tablet by mouth once daily Ghhusmrv-Stgev-Mnh3 -C-[facility] Active 1 TABLET PO DAILY January 10, 2019 1:41pm Start: 01-10-2019 take 1 tablet by thomas th once daily Cqtdmlfb-Pqpto-Gct0-C-[facility]-Bor Active 1 TABLET PO DAILY January 09, 2019 11:00pm Start: 01-10-2019 take 1 tablet by thomas th once daily Ejgktfgv-Fqaeq-Dpv3-C-[facility] Active 1 TABLET PO DAILY January 10, 2019 12:00am Xxgeylyb-Srubb-Lql6-C-Jose Luis-B or [id number] mg tablet (6 sources) Start: 01-10-2019 Obcdhink-Nwmzh-Hng6-C-Jose Luis-B or [id number] mg tablet Active 1 {tbl} PO DAILY 0 January 10, 2019 12:00am Start: 01-10-2019 Glucosam-Chond -Mov2-G-Jquo-Bor 217-475-03-1 mg tablet Active 1 {tbl} PO DAILY [...] 1 tablet by thomas th once daily Cjjnjshgkgqp-Orqgckod-Vfhadn Active 1 TA BLET PO DAILY January 09, 2019 11:00pm Start: 01-10-2019 take 1 tablet by thomas th once daily Rckwbnooicnq-Aerkynmb-Upuphy Active 1 TA BLET PO DAILY January 10, 2019 12:00am Hpsizzdxvmsj-Vgzguzob-Yrfopg tablet (6 sources) Start: 01-10-2019 Bmcggipqwzis-Gawvtsov-Jumkua tablet Active 1 {tbl} PO DAILY January 10, 2019 12:00am multivitamins(DAILY MULTIPLE TAB) (20 sources) Start: 11-09-2008 multivitamins(DAILY MULTIPLE TAB) Take one(1) tablet daily. 0 11/09/2008 Active Comment on above: Take one(1) tablet d aily. ondansetron 4 mg disintegrating oral tablet (11 sources) Serotoni n-[address] Start: [...] Comment on above: Take 1 tablet by [facility] once daily. Psyllium (5 sources) Start: 02-22-2022 take 8 [oz_av] by mouth twice daily Psyllium Active 1 PACKET PO TWICE A DAY February 21, 2022 11:00pm mix into at least 8 oz of water or juice before administering Start: 02-22-2022 take 8 [oz_av] by mo [facility] twice daily Psyllium Active 1 PACKET PO TWICE A DAY February 22, 2022 12:00am mix into at least 8 oz of water or juice before administering Psyllium Packet (6 sources) Start: 02-22-2022 take 8 [oz_av] by mouth twice daily Psyllium Packet Active 1 NMA PO TWICE A DAY February 22, 2022 12:00am constipation mix into at least 8 oz of water or juice before administering Start: 02-22-2022 take 8 [oz_av] by mo [facility] twice daily Psyllium Packet Active 1 NMA [...] 1 tablet by thomas th once daily Sertraline (Zoloft) 100 mg tablet Active 100 MG PO DAILY January 10, 2019 1:42pm Comment on above: Take 2 tablets by mo [facility] once daily. simvastatin 40 mg oral tablet [...] 1 tablet by thomas th once daily. Zinc (11 sources) Start: 02-22-2022 take 1 tablet by [...] Episodic/Chronic Conditions associated with dizziness or vertigo (14 sources) Dizziness; Translations: [Dizziness and giddiness] Episodic [...] 10 07-23-2010 Chronic Fluid and electrolyte disorders (20 sources) Dehydration; Translations: [Dehydration] Episodic Genitourinary symptoms [...] [Depression] Onset: 08-22-20 Chronic Nausea and vomiting (11 sources) Nausea and vomiting; Translations: [Nausea with vomiting, unspecified] Episodic Nonmalignant breast conditions (20 sources) Fibrocystic disease of breast; Translations: [Diffuse cystic mastopathy of unspecified breast] Onset: 12-23-19 06 12-22-2005 Chronic Nutritional deficiencies (1 source) Vitamin deficiency, unspecified; Translations: [Vitamin deficiency, unspecified] Onset: 05-24-20 Episodic Other aftercare (1 source) Post-discharge follow-up; Translations: [Encounter for follow-up examination after completed treatment for conditions other than malignant neoplasm] Episodic Other and unspecified benign neoplasm (2 sources) Hemangioma of skin and subcutaneous tissue; Translations: [Hemangioma of skin and subcutaneous tissue] Onset: 12-09-19 Episodic Other circulatory disease (12 sources) Orthostatic hypotension; Translations: [Orthostatic hypotension] 03-04-2022 Episodic Other circulatory disease (2 sources) Orthostatic hypotension; Translations: [Orthostatic hypotension] Episodic Other gastrointestinal disorders (1 source) Chronic constipation; Translations: [Other constipation] 04-16-2023 Episodic Other hereditary and degenerative nervous system conditions (20 sources) System disorder of the nervous system; 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] Onset: 03-03-20 06 03-03-2006 Chronic Other inflammatory condition of skin (1 source) Sunburn of first degree; Translations: [Sunburn of first degree] Onset: 05-24-20 Episodic Other lower respiratory disease (1 source) H/O: pneumonia; Translations: [Personal history of pneumonia (recurrent)] 10-09-2021 Episodic Other lower respiratory disease (1 source) Cough; Translations: [Cough] 09-03-2021 Episodic Other nervous system disorders (20 sources) Vascular parkinsonism; 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 Other nervous system disorders (20 sources) Normal pressure hydrocephalus; Translations: [(Idiopathic) normal pressure hydrocephalus] Onset: 10-13-19 Resolved : 04-19-2004-13-2020 Chronic Other nervous system disorders (12 sources) Unable to walk; Translations: [Difficulty in [...] conditions (not mental disorders or infectious disease) (14 sources) Mammography abnormal; Translations: [Other abnormal and inconclusive findings on diagnostic imaging of breast] Episodic Other skin disorders (2 sources) Actinic keratosis; Translations: [Actinic keratosis] Onset: 12-09-19 25 Episodic Prolapse of female genital organs (20 sources) Midline cystocele; Translations: [Cystocele, midline] Onset: 08-21-20 08 08-21-2008 Chronic Residual codes; unclassified (11 sources) Sleep apnea; Translations: [Sleep apnea, unspecified] 02-21-2022 Chronic Residual codes; unclassified (11 sources) Dependence on continuous positive airway pressure [...] Translations: [Spinal stenosis, cervical region] 06-17-2019 Episodic Unclassified (1 source) Personal history of COVID-19; Translations: [Personal history of COVID-19] Onset: 05-24-20 Viral infection (1 source) Disease caused by 2019-nCoV; Translations: [COVID-19] 10-09-2021 Episodic Past or Other Problems Problem Classification Problem Date Documented Da te Episodic/Chronic Other gastrointestinal disorders (1 source) Other constipation; Translations: [Chronic constipation] Onset: 04-17-2023 Episodic Other nervous system disorders (3 sources) Postoperative pain ; Translations: [Other acute postprocedural pain] Onset: 04-13-2020 Resolved: 04-19-2020 04-19-2020 Episodic Results Test Name Value Interpretation Reference Range Facility Absolute lymphocyte countOrd ered By: Manpreet Ivy on 2025 Lymphocytes Auto (Unsp spec) [#/Vol] 3.54 10*3/uL 0.83-4.51 [facility] Absolute neutrophil countOrd ered By: Manpreet Ivy on 2025 Neutrophils (Bld) [#/Vol] 5.6 10*3/uL 2.0-7.7 [facility] Anion gap in Serum or Plasma Ordered By: Manpreet Ivy on 2025 Anion gap [Moles/Vol] 14 mmol/L 5-15 [facility] Automated lymphocyte count a s percentage of total leukocytesOrdered By: Manpreet Ivy on 2025 Lymphocytes/100 WBC Auto (Unsp spec) 35.0 % 19-41 [facility] BUN/creatinine ratioOrdered By: Manpreet Ivy on 2025 Urea nitrogen/Creatinine [Mass ratio] 17.8 mg/mg 10-20 [facility] Basophil percentageOrdered B y: Manpreet Ivy on 2025 Basophils/100 WBC (Bld) 0.5 % 0-1 [facility] Bilirubin, totalOrdered By: Manpreet Ivy on 2025 Bilirubin [Mass/Vol] 0.25 mg/dL 0.00-1.30 [facility] Calculated very low density lipoprotein (VLDL) cholesterol measurementOrdered By: Shanekamidlandel Ivy on 2025 Calculated very low density lipoprotein (VLDL) cholesterol measurement 33 mg/dL 5-40 [facility] Carbon dioxide, total [Moles /volume] in Central venous bloodOrdered By: Manpreet Ivy on 2025 CO2 [Moles/Vol] 22.3 mmol/L 21.0-32.0 [facility] Chloride assayOrdered By: Bailey Ivy on 2025 Chloride [Moles/Vol] 102 mmol/L 98-108 [facility] Eosinophil percentageOrdered By: Manpreet Ivy on 2025 Eosinophils/100 WBC (Bld) 2.4 % 0-5 [facility] Erythrocyte distribution wid th ratioOrdered By: Manpreet Ivy on 2025 Erythrocyte distribution width (RBC) [Ratio] 13.0 % 11.6-14.6 [facility] Erythrocyte distribution wid th standard deviationOrdered By: Manpreet Ivy on 2025 Erythrocyte distribution width (RBC) [Ratio] 42.0 fl 35.1-43.9 [facility] Glomerular filtration rate ( GFR) estimation/1.73 sq m using serum, plasma, or whole bOrdered By: Manpreet Ivy on 2025 GFR/1.73 sq M.predicted among non-blacks MDRD (S/P/Bld) [Vol rate/Area] 48 mL/min/{1.73_m2} Low >60 [facility] Comment on above: mL/min/1.73m2 CKD-EP I Creatinine Equation (2020) Hematocrit Auto (Bld) [Volum e fraction]Ordered By: Manpreet Ivy on 2025 Hematocrit (Bld) [Volume fraction] 40.6 % 37-47 [facility] Hemoglobin A1c percentageOrd ered By: Manpreet Ivy on 2025 HbA1c (Bld) [Mass fraction] 7.2 % High <5.7 [facility] Comment on above: Normal < 5.7 % Predi abetic 5.7 - 6.4 % Diabetic >or= 6.5 % Please note range changes. Hemoglobin measurementOrdere d By: Manpreet Ivy on 2025 Hemoglobin (Bld) [Mass/Vol] 13.5 g/dL 12.0-15.0 [facility] Immature granulocytes/100 WB C Auto (Bld)Ordered By: Manpreet Ivy on 2025 Immature granulocytes/100 WBC (Bld) 0.300 % 0.0-0.9 [facility] Comment on above: IG% - Immature Granu locytes (promyelocytes, myelocytes and metamyelocytes) > 1% indicates that a LEFT SHIFT is Present. LDL calc ser/plasOrdered By: Manpreet Ivy on 2025 Cholesterol in LDL [Mass/Vol] 48 mg/dL [facility] Comment on above: Gbrrqlkbcz=397-640 m g/dL & Higher Mgfh=916 mg/dL or greaterFriedwald Equation for LDL-C Laboratory - Chemistry and C hemistry - challengeOrdered By: Manpreet Ivy on 2025 AST [Catalytic activity/Vol] 21 U/L <32 [facility] MCV (mean corpuscular volume ) determinationOrdered By: Manpreet Ivy on 2025 MCV (RBC) [Entitic vol] 87.7 fL 81-99 [facility] Mean corpuscular hemoglobin (MCH) determinationOrdered By: Baileyrogeliojohnel Diasoliviajuan jose on 2025 MCH (RBC) [Entitic mass] 29.2 pg 27.0-32.0 [facility] Mean corpuscular hemoglobin concentration (MCHC) determinationOrdered By: Baileyhui Diasoliviajuan jose on 2025 MCHC (RBC) [Mass/Vol] 33.3 g/dL 32-36 [facility] Mean platelet volume determi nationOrdered By: Baileyrogeliojohnel Diasoliviajuan jose on 2025 Platelet mean volume (Bld) [Entitic vol] 10.6 fL 6.2-12.0 [facility] Monocyte percentageOrdered B y: Manpreet Ivy on 2025 Monocytes/100 WBC (Bld) 6.7 % 0-10 [facility] Neutrophil percentageOrdered By: Manpreet Ivy on 2025 Neutrophils/100 WBC (Bld) 55.1 % 47-70 [facility] Nucleated red blood cell per centageOrdered By: Shanekajohnel Diasoliviajuan jose on 2025 Nucleated RBC/100 WBC (Bld) [Ratio] 0 % 0-5 [facility] Platelet countOrdered By: Bailey chineduel Ivy on 2025 Platelets (Bld) [#/Vol] 226 10*3/uL 150-450 [facility] Potassium measurement (mass/ volume)Ordered By: Baileyhui Ivy on 2025 Potassium (Unsp spec) [Mass/Vol] 4.4 mmol/L 3.3-5.1 [facility] Comment on above: Hemolysis present, R esults could be affected. RBC Auto (Bld) [#/Vol]Ordere d By: Manpreet Ivy on 2025 RBC (Bld) [#/Vol] 4.63 10*6/uL 4.2-5.4 [facility] Screening total cholesterol/ high density lipoprotein (HDL) cholesterol ratioOrdered By: Manpreet Ivy on 2025 Cholesterol.total/Beatriz sterol in HDL [Mass ratio] 2.52 {ratio} [facility] Serum creatinine measurement (mass/volume)Ordered By: Manpreet Ivy on 2025 Creatinine [Mass/Vol] 1.12 mg/dL 0.70-1.20 [facility] Serum globulin measurementOr dered By: Manpreet Ivy on 2025 Globulin (S) [Mass/Vol] 2.4 g/dL 2.2-4.2 [facility] Serum glucose measurement (m ass/volume)Ordered By: Manpreet Ivy on 2025 Glucose [Mass/Vol] 97 mg/dL 70-99 [facility] Serum or plasma alanine corral otransferase (ALT) measurementOrdered By: Manpreet Ivy on 2025 ALT [Catalytic activity/Vol] 13 U/L <35 [facility] Serum or plasma albumin cinthia urement (mass/volume)Ordered By: Manpreet Ivy on 2025 Albumin [Mass/Vol] 4.5 g/dL 3.4-4.8 [facility] Serum or plasma albumin/glob ulin mass ratioOrdered By: Manpreet Ivy on 2025 Albumin/Globulin [Mass ratio] 1.9 {ratio} 0.9-2.4 [facility] Serum or plasma alkaline mireya sphatase measurementOrdered By: Manpreet Ivy on 2025 ALP [Catalytic activity/Vol] 59 U/L 35-104 [facility] Serum or plasma calcium cinthia urement (mass/volume)Ordered By: Manpreet Ivy on 2025 Calcium [Mass/Vol] 10.0 mg/dL 7.6-11.0 [facility] Serum or plasma cholesterol in HDL measurement (mass/volume)Ordered By: Manpreet Ivy on 2025 Cholesterol in HDL [Mass/Vol] 53 mg/dL >40 [facility] Comment on above: National Cholesterol Education Program (NCEP) guidelines:<40 mg/dL: Low HDL-cholesterol (major risk factor for CHD)>= 60 mg/dL: High HDL-cholesterol (negative risk factor for CHD)HDL-cholesterol is affected by a number of factors, e.g. smoking, exercise, hormones, sex and age. Serum or plasma cholesterol measurement (mass/volume)Ordered By: Manpreet Ivy on 2025 Cholesterol [Mass/Vol] 133 mg/dL <201 [facility] Comment on above: Cholesterol level, D esirable <200 mg/dLBorderline high cholesterol 200-239 mg/dLHigh cholesterol >=240 mg/dLRecommendations of the NCEP Adult Treatment Panel for the following risk-cutoff thresholds for the [place] population. Serum or plasma urea nitroge n measurement (mass/volume)Ordered By: Manpreet Ivy on 2025 Urea nitrogen [Mass/Vol] 20 mg/dL High 4-19 [facility] Sodium levelOrdered By: Shaneka benvaidezarturo Biju on 2025 Sodium [Moles/Vol] 138 mmol/L 133-145 [facility] Total proteinOrdered By: Kevin clarael Ivy on 2025 Protein [Mass/Vol] 6.9 g/dL 5.9-8.4 [facility] Triglycerides measurementOrd ered By: Manpreet Ivy on 2025 Triglyceride [Mass/Vol] 163 mg/dL <199 [facility] Comment on above: The drugs N-Acetylcy steine and Metamizole may falsely depress this assay. Normal range: <150 mg/dLBorderline High: 150-199 mg/dLHigh: 200-499 mg/dLVery High: >500 mg/dL White blood cell (WBC) count Ordered By: Manpreet Ivy on 2025 WBC (Bld) [#/Vol] 10.1 10*3/uL 4.4-11.0 [facility] Absolute lymphocyte countOrd ered By: Manpreet Ivy on 01-31-2025 Lymphocytes Auto (Unsp spec) [#/Vol] 2.14 10*3/uL 0.83-4.51 [facility] Absolute neutrophil countOrd ered By: Manpreet Ivy on 01-31-2025 Neutrophils (Bld) [#/Vol] 4.4 10*3/uL 2.0-7.7 [facility] Anion gap in Serum or Plasma Ordered By: Manpreet Ivy on 01-31-2025 Anion gap [Moles/Vol] 12 mmol/L 5-15 [facility] Automated lymphocyte count a s percentage of total leukocytesOrdered By: Manpreet Ivy on 01-31-2025 Lymphocytes/100 WBC Auto (Unsp spec) 29.4 % 19-41 [facility] BUN/creatinine ratioOrdered By: Manpreet Ivy on 01-31-2025 Urea nitrogen/Creatinine [Mass ratio] 14.8 mg/mg 10-20 [facility] Basophil percentageOrdered B y: Manpreet Ivy on 01-31-2025 Basophils/100 WBC (Bld) 0.7 % 0-1 [facility] Bilirubin, totalOrdered By: Manpreet Ivy on 01-31-2025 Bilirubin [Mass/Vol] 0.23 mg/dL 0.00-1.30 [facility] Calculated very low density lipoprotein (VLDL) cholesterol measurementOrdered By: Manpreet Ivy on 01-31-2025 Calculated very low density lipoprotein (VLDL) cholesterol measurement 30 mg/dL 5-40 [facility] Carbon dioxide, total [Moles /volume] in Central venous bloodOrdered By: Manpreet Ivy on 01-31-2025 CO2 [Moles/Vol] 22.5 mmol/L 21.0-32.0 [facility] Chloride assayOrdered By: Bailey Ivy on 01-31-2025 Chloride [Moles/Vol] 102 mmol/L 98-108 [facility] Eosinophil percentageOrdered By: Manpreet Ivy on 01-31-2025 Eosinophils/100 WBC (Bld) 2.1 % 0-5 [facility] Erythrocyte distribution wid th ratioOrdered By: Manpreet Ivy on 01-31-2025 Erythrocyte distribution width (RBC) [Ratio] 12.8 % 11.6-14.6 [facility] Erythrocyte distribution wid th standard deviationOrdered By: Manpreet Ivy on 01-31-2025 Erythrocyte distribution width (RBC) [Ratio] 41.5 fl 35.1-43.9 [facility] Glomerular filtration rate ( GFR) estimation/1.73 sq m using serum, plasma, or whole bOrdered By: Manpreet Ivy on 01-31-2025 GFR/1.73 sq M.predicted among non-blacks MDRD (S/P/Bld) [Vol rate/Area] 57 mL/min/{1.73_m2} Low >60 [facility] Comment on above: mL/min/1.73m2 CKD-EP I Creatinine Equation (2020) Hematocrit Auto (Bld) [Volum e fraction]Ordered By: Manpreet Ivy on 01-31-2025 Hematocrit (Bld) [Volume fraction] 41.1 % 37-47 [facility] Hemoglobin A1c percentageOrd ered By: Manpreet Ivy on 01-31-2025 HbA1c (Bld) [Mass fraction] 8.1 % High <5.7 [facility] Comment on above: Normal < 5.7 % Predi abetic 5.7 - 6.4 % Diabetic >or= 6.5 % Please note range changes. Hemoglobin measurementOrdere d By: Manpreet Ivy on 01-31-2025 Hemoglobin (Bld) [Mass/Vol] 13.1 g/dL 12.0-15.0 [facility] Immature granulocytes/100 WB C Auto (Bld)Ordered By: Manpreet Ivy on 01-31-2025 Immature granulocytes/100 WBC (Bld) 0.400 % 0.0-0.9 [facility] Comment on above: IG% - Immature Granu locytes (promyelocytes, myelocytes and metamyelocytes) > 1% indicates that a LEFT SHIFT is Present. LDL calc ser/plasOrdered By: Manpreet Ivy on 01-31-2025 Cholesterol in LDL [Mass/Vol] 56 mg/dL [facility] Comment on above: Pgzflgydea=659-857 m g/dL & Higher Wxgd=130 mg/dL or greater Laboratory - Chemistry and C hemistry - challengeOrdered By: Manpreet Ivy on 05-27-2025 AST [Catalytic activity/Vol] 20 U/L <32 [facility] MCV (mean corpuscular volume ) determinationOrdered By: Manpreet Ivy on 01-31-2025 MCV (RBC) [Entitic vol] 89.0 fL 81-99 [facility] Mean corpuscular hemoglobin (MCH) determinationOrdered By: Manpreet Ivy on 01-31-2025 MCH (RBC) [Entitic mass] 28.4 pg 27.0-32.0 [facility] Mean corpuscular hemoglobin concentration (MCHC) determinationOrdered By: Manpreet Ivy on 01-31-2025 MCHC (RBC) [Mass/Vol] 31.9 g/dL Low 32-36 [facility] Mean platelet volume determi nationOrdered By: Manpreet Ivy on 01-31-2025 Platelet mean volume (Bld) [Entitic vol] 10.1 fL 6.2-12.0 [facility] Monocyte percentageOrdered B y: Manpreet Ivy on 01-31-2025 Monocytes/100 WBC (Bld) 6.7 % 0-10 [facility] Neutrophil percentageOrdered By: rogeliomidlandel Ivy on 01-31-2025 Neutrophils/100 WBC (Bld) 60.7 % 47-70 [facility] Nucleated red blood cell per centageOrdered By: Manpreet Ivy on 01-31-2025 Nucleated RBC/100 WBC (Bld) [Ratio] 0 % 0-5 [facility] Platelet countOrdered By: Bailey rogelioelton Ivy on 01-31-2025 Platelets (Bld) [#/Vol] 192 10*3/uL 150-450 [facility] Potassium measurement (mass/ volume)Ordered By: Manpreet Ivy on 01-31-2025 Potassium (Unsp spec) [Mass/Vol] 4.9 mmol/L 3.3-5.1 [facility] Comment on above: Hemolysis present, R esults could be affected. RBC Auto (Bld) [#/Vol]Ordere d By: Manpreet Ivy on 01-31-2025 RBC (Bld) [#/Vol] 4.62 10*6/uL 4.2-5.4 [facility] Screening total cholesterol/ high density lipoprotein (HDL) cholesterol ratioOrdered By: Manpreet Ivy on 01-31-2025 Cholesterol.total/Beatriz sterol in HDL [Mass ratio] 2.54 {ratio} [facility] Serum creatinine measurement (mass/volume)Ordered By: Manpreet Ivy on 01-31-2025 Creatinine [Mass/Vol] 0.98 mg/dL 0.70-1.20 [facility] Serum globulin measurementOr dered By: Manpreet Ivy on 01-31-2025 Globulin (S) [Mass/Vol] 2.5 g/dL 2.2-4.2 [facility] Serum glucose measurement (m ass/volume)Ordered By: Manpreet Ivy on 01-31-2025 Glucose [Mass/Vol] 182 mg/dL High 70-99 [facility] Serum or plasma alanine corral otransferase (ALT) measurementOrdered By: Manpreet Ivy on 01-31-2025 ALT [Catalytic activity/Vol] 10 U/L <35 [facility] Serum or plasma albumin cinthia urement (mass/volume)Ordered By: Manpreet Ivy 01-31-2025 Albumin [Mass/Vol] 4.5 g/dL 3.4-4.8 [facility] Serum or plasma albumin/glob ulin mass ratioOrdered By: Manpreet Ivy 01-31-2025 Albumin/Globulin [Mass ratio] 1.8 {ratio} 0.9-2.4 [facility] Serum or plasma alkaline mireya sphatase measurementOrdered By: Manpreet Ivy 01-31-2025 ALP [Catalytic activity/Vol] 72 U/L 35-104 [facility] Serum or plasma calcium cinthia urement (mass/volume)Ordered By: Manpreet Ivy 01-31-2025 Calcium [Mass/Vol] 9.7 mg/dL 7.6-11.0 [facility] Serum or plasma cholesterol in HDL measurement (mass/volume)Ordered By: Manpreet Ivy on 01-31-2025 Cholesterol in HDL [Mass/Vol] 56 mg/dL >40 [facility] Comment on above: National Cholesterol Education Program (NCEP) guidelines:<40 mg/dL: Low HDL-cholesterol (major risk factor for CHD)>= 60 mg/dL: High HDL-cholesterol (negative risk factor for CHD)HDL-cholesterol is affected by a number of factors, e.g. smoking, exercise, hormones, sex and age. Serum or plasma cholesterol measurement (mass/volume)Ordered By: Manpreet Ivy on 01-31-2025 Cholesterol [Mass/Vol] 141 mg/dL <201 [facility] Comment on above: Cholesterol level, D esirable <200 mg/dLBorderline high cholesterol 200-239 mg/dLHigh cholesterol >=240 mg/dLRecommendations of the NCEP Adult Treatment Panel for the following risk-cutoff thresholds for the [place] population. Serum or plasma urea nitroge n measurement (mass/volume)Ordered By: Manpreet Ivy on 01-31-2025 Urea nitrogen [Mass/Vol] 15 mg/dL 4-19 [facility] Sodium levelOrdered By: Shaneka benavidezarturo Biju on 01-31-2025 Sodium [Moles/Vol] 136 mmol/L 133-145 [facility] Total proteinOrdered By: Kevin Ivy on 01-31-2025 Protein [Mass/Vol] 6.9 g/dL 5.9-8.4 [facility] Triglycerides measurementOrd ered By: Manpreet Ivy on 01-31-2025 Triglyceride [Mass/Vol] 149 mg/dL <199 [facility] Comment on above: The drugs N-Acetylcy steine and Metamizole may falsely depress this assay. Normal range: <150 mg/dLBorderline High: 150-199 mg/dLHigh: 200-499 mg/dLVery High: >500 mg/dL White blood cell (WBC) count Ordered By: Manpreet Ivy on 01-31-2025 WBC (Bld) [#/Vol] 7.3 10*3/uL 4.4-11.0 [facility] Absolute lymphocyte countOrd ered By: Manpreet Ivy on 11-02-2024 Lymphocytes Auto (Unsp spec) [#/Vol] 2.46 10*3/uL 0.83-4.51 [facility] Absolute neutrophil countOrd ered By: Manpreet Ivy on 11-02-2024 Neutrophils (Bld) [#/Vol] 3.9 10*3/uL 2.0-7.7 [facility] Automated lymphocyte count a s percentage of total leukocytesOrdered By: Manpreet Ivy on 11-02-2024 Lymphocytes/100 WBC Auto (Unsp spec) 34.1 % - [facility] BUN/creatinine ratioOrdered By: Manpreet Ivy on 11-02-2024 Urea nitrogen/Creatinine [Mass ratio] 18.1 mg/mg 10- [facility] Basophil percentageOrdered B y: Manpreet Ivy on 11-02-2024 Basophils/100 WBC (Bld) 0.8 % 0-1 [facility] Bilirubin, totalOrdered By: Manpreet Ivy on 11-02-2024 Bilirubin [Mass/Vol] 0.16 mg/dL 0.00-1.30 [facility] Calculated very low density lipoprotein (VLDL) cholesterol measurementOrdered By: Manpreet Ivy on 11-02-2024 Calculated very low density lipoprotein (VLDL) cholesterol measurement 22 mg/dL 5-40 [facility] VLDL Cholesterol 22 mg/dL -40 [facility] Carbon dioxide measurementOr dered By: Manpreet Ivy on 11-02-2024 CO2 [Moles/Vol] 23.9 mmol/L 22.0-29.0 [facility] Chloride measurementOrdered By: Manpreet Ivy on 11-02-2024 Chloride [Moles/Vol] 101 mmol/L 96-108 [facility] Eosinophil percentageOrdered By: Manpreet Ivy on 11-02-2024 Eosinophils/100 WBC (Bld) 2.6 % 0-5 [facility] Erythrocyte distribution wid th (RBC) [Ratio]Ordered By: Manpreet Ivy on 11-02-2024 Erythrocyte distribution width (RBC) [Entitic vol] 41.3 fL 35.1-43.9 [facility] Erythrocyte distribution wid th ratioOrdered By: Manpreet Ivy on 11-02-2024 Erythrocyte distribution width (RBC) [Ratio] 12.7 % 11.6-14.6 [facility] Erythrocyte distribution wid th standard deviationOrdered By: Manpreet Ivy on 11-02-2024 Erythrocyte distribution width (RBC) [Ratio] 41.3 fl 35.1-43.9 [facility] GFR/1.73 sq M.predicted antonio g non-blacks MDRD (S/P/Bld) [Vol rate/Area]Ordered By: Manpreet Ivy on 11-02-2024 Estimated GFR (MDRD) Non-Af Amer 61 >60 [facility] Comment on above: mL/min/1.73m2 CKD-EP I Creatinine Equation (2020) Glomerular filtration rate ( GFR) estimation/1.73 sq m using serum, plasma, or whole bOrdered By: Manpreet Ivy on 11-02-2024 GFR/1.73 sq M.predicted among non-blacks MDRD (S/P/Bld) [Vol rate/Area] 61 mL/min/{1.73_m2} >60 [facility] Comment on above: mL/min/1.73m2 CKD-EP I Creatinine Equation (2020) Hematocrit Auto (Bld) [Volum e fraction]Ordered By: Manpreet Ivy on 11-02-2024 Hematocrit (Bld) [Volume fraction] 38.7 % 37-47 [facility] Hemoglobin A1c percentageOrd ered By: Manpreet Ivy 11-02-2024 HbA1c (Bld) [Mass fraction] 7.4 % >5.7 [facility] Hemoglobin measurementOrdere d By: Manpreet Ivy on 11-02-2024 Hemoglobin (Bld) [Mass/Vol] 12.5 g/dL 12.0-15.0 [facility] Immature granulocytes/100 WB C Auto (Bld)Ordered By: Manpreet Ivy on 11-02-2024 Immature granulocytes/100 WBC (Bld) 0.600 % 0.0-0.9 [facility] Comment on above: IG% - Immature Granu locytes (promyelocytes, myelocytes and metamyelocytes) > 1% indicates that a LEFT SHIFT is Present. LDL calc ser/plasOrdered By: Manpreet Ivy on 11-02-2024 Cholesterol in LDL [Mass/Vol] 55 mg/dL [facility] Comment on above: Lhrzypsdkf=916-067 m g/dL & Higher Fkmb=467 mg/dL or greater LDL Cholesterol, Calculated 55 mg/dL [facility] Comment on above: Vmsudhxjwm=009-953 m g/dL & Higher Pdlk=411 mg/dL or greater Laboratory - Chemistry and C hemistry - challengeOrdered By: Manpreet Ivy on 11-02-2024 AST [Catalytic activity/Vol] 23 U/L <32 [facility] Lymphocytes Auto (Unsp spec) [#/Vol]Ordered By: Manpreet Ivy on 11-02-2024 Lymphocytes (Bld) [#/Vol] 2.46 10*3/uL 0.83-4.51 [facility] Lymphocytes/100 WBC Auto (Un sp spec)Ordered By: Manpreet Ivy on 11-02-2024 Lymphocytes/100 WBC (Bld) 34.1 % 19-41 [facility] MCV (mean corpuscular volume ) determinationOrdered By: Manpreet Ivy on 11-02-2024 MCV (RBC) [Entitic vol] 88.8 fL 81-99 [facility] Mean corpuscular hemoglobin (MCH) determinationOrdered By: Manpreet Ivy on 11-02-2024 MCH (RBC) [Entitic mass] 28.7 pg 27.0-32.0 [facility] Mean corpuscular hemoglobin concentration (MCHC) determinationOrdered By: Manpreet Ivy on 11-02-2024 MCHC (RBC) [Mass/Vol] 32.3 g/dL 32-36 [facility] Mean platelet volume determi nationOrdered By: Manpreet Ivy on 11-02-2024 Platelet mean volume (Bld) [Entitic vol] 10.6 fL 6.2-12.0 [facility] Monocyte percentageOrdered B y: Manpreet Ivy on 11-02-2024 Monocytes/100 WBC (Bld) 8.0 % 0-10 [facility] Neutrophil percentageOrdered By: Manpreet Ivy on 11-02-2024 Neutrophils/100 WBC (Bld) 53.9 % 47-70 [facility] Nucleated red blood cell per centageOrdered By: Manpreet Ivy on 11-02-2024 Nucleated RBC/100 WBC (Bld) [Ratio] 0 % 0-5 [facility] Platelet countOrdered By: Bailey Ivy on 11-02-2024 Platelets (Bld) [#/Vol] 186 10*3/uL 150-450 [facility] RBC Auto (Bld) [#/Vol]Ordere d By: Manpreet Ivy on 11-02-2024 RBC (Bld) [#/Vol] 4.36 10*6/uL 4.2-5.4 [facility] Screening total cholesterol/ high density lipoprotein (HDL) cholesterol ratioOrdered By: Manpreet Ivy on 11-02-2024 Cholesterol.total/Beatriz sterol in HDL [Mass ratio] 2.53 {ratio} [facility] Serum creatinine measurement (mass/volume)Ordered By: Manpreet Ivy on 11-02-2024 Creatinine [Mass/Vol] 0.9 mg/dL 0.70-1.20 [facility] Serum globulin measurementOr dered By: Manpreet Ivy on 11-02-2024 Globulin (S) [Mass/Vol] 2.1 g/dL Low 2.2-4.2 [facility] Serum glucose measurement (m ass/volume)Ordered By: Manpreet Ivy on 11-02-2024 Glucose [Mass/Vol] 106 mg/dL High 70-99 [facility] Serum or plasma alanine corral otransferase (ALT) measurementOrdered By: Manpreet Ivy on 11-02-2024 ALT [Catalytic activity/Vol] 17 U/L <35 [facility] Serum or plasma albumin cinthia urement (mass/volume)Ordered By: Manpreet Ivy on 11-02-2024 Albumin [Mass/Vol] 4.2 g/dL 3.4-4.8 [facility] Serum or plasma albumin/glob ulin mass ratioOrdered By: Manpreet Ivy on 11-02-2024 Albumin/Globulin [Mass ratio] 2.0 {ratio} 0.9-2.4 [facility] Serum or plasma alkaline mireya sphatase measurementOrdered By: Manpreet Ivy on 11-02-2024 ALP [Catalytic activity/Vol] 70 U/L 35-104 [facility] Serum or plasma anion gap de termination (moles/volume)Ordered By: Manpreet Ivy 11-02-2024 Anion gap [Moles/Vol] 14 mmol/L 5-15 [facility] Serum or plasma calcium cinthia urement (mass/volume)Ordered By: Manpreet Ivy 11-02-2024 Calcium [Mass/Vol] 9.6 mg/dL 7.6-11.0 [facility] Serum or plasma cholesterol in HDL measurement (mass/volume)Ordered By: Manpreet Ivy 11-02-2024 Cholesterol in HDL [Mass/Vol] 51 mg/dL >40 [facility] Comment on above: National Cholesterol Education Program (NCEP) guidelines:<40 mg/dL: Low HDL-cholesterol (major risk factor for CHD)>= 60 mg/dL: High HDL-cholesterol (negative risk factor for CHD)HDL-cholesterol is affected by a number of factors, e.g. smoking, exercise, hormones, sex and age. Serum or plasma cholesterol measurement (mass/volume)Ordered By: Manperet Ivy on 11-02-2024 Cholesterol [Mass/Vol] 128 mg/dL <201 [facility] Comment on above: Cholesterol level, D esirable <200 mg/dLBorderline high cholesterol 200-239 mg/dLHigh cholesterol >=240 mg/dLRecommendations of the NCEP Adult Treatment Panel for the following risk-cutoff thresholds for the [place] population. Serum or plasma potassium me asurementOrdered By: Manpreet Ivy 11-02-2024 Potassium [Moles/Vol] 4.1 mmol/L 3.3-5.1 [facility] Serum or plasma sodium measu rement (moles/volume)Ordered By: Manpreet Ivy 11-02-2024 Sodium [Moles/Vol] 139 mmol/L 133-145 [facility] Serum or plasma urea nitroge n measurement (mass/volume)Ordered By: Manpreet Ivy on 11-02-2024 Urea nitrogen [Mass/Vol] 17 mg/dL 4-19 [facility] Total proteinOrdered By: Kevin miguel Biju on 11-02-2024 Protein [Mass/Vol] 6.3 g/dL 5.9-8.4 [facility] Triglycerides measurementOrd ered By: Nelsonel Ivy on 11-02-2024 Triglyceride [Mass/Vol] 110 mg/dL <199 [facility] Comment on above: The drugs N-Acetylcy steine and Metamizole may falsely depress this assay. Normal range: <150 mg/dLBorderline High: 150-199 mg/dLHigh: 200-499 mg/dLVery High: >500 mg/dL White blood cell (WBC) count Ordered By: Nelsonel Ivy on 11-02-2024 WBC (Bld) [#/Vol] 7.2 10*3/uL 4.4-11.0 [facility] RAMONA MIKE ([id number]) 1940 F Date Time Provider Department 01/14/24 HARSH MCNAIR [facility] During your visit today, we recorded the following information about you: Shahrzad Anderson MA 01/14/2024 9:06 AM Signed Type of letter/form/fax request - Medical Necessity-PAP supplies Form received from fax on 1 floor and placed on MD desk (Dr. Mcnair) for completion. Completed form needs to be faxed to [facility] at [phone]. Route to [place] when form completed for processing Afsaneh Cruz MA 01/14/2024 3:14 PM Addendum Pt is currently receiving prescription from Dr. Ivy as of September 2023 and is under her care. She is currently at [facility]. The documents are requesting an OV note [...] 01/15/2024 2:33 PM Signed Form faxed to [facility] office. PCP updated. Shahrzad Anderson MA Allergies As of Date: 01/14/2024 Noted Allergy Reaction PENICILLINS 03/03/2006 10 - Anaphylaxis IODINE 04/30/2005 5 - Intolerance Date Reviewed: 09/24/2023 Reviewed by: Jackson Duran MA - Fully Assessed Reason for Visit: Forms [913] Cmt: Nancy-CPAP supplies Prescriptions as of 01/15/2024 [...] TWO TABLETS BY MOUTH WITH DINNER. - [employer] ULTRA TEST test strip TEST BLOOD SUGAR 1 TIMES DAILY. DX TYPE 2 DM CONTROLLED E11.9 INSULIN: NO. - aspirin, enteric coated (ASPIRIN, ENTERIC COATED) 81 mg EC tablet Take 1 tablet by mouth once daily. - Lactobacillus acidophilus (PROBIOTIC ORAL) Take by mouth once daily. - glucosamine HCl/chondroitin romaon (GLUCOSAMINE-CHONDROITI N ORAL) Take by mouth once [...] Encounter Status:Closed by SHAHRZAD ANDERSON on 01/15/24 Normal [facility] Absolute lymphocyte countOrd ered By: Manpreet Ivy on 11-03-2023 Lymphocytes Auto (Unsp spec) [#/Vol] 2.35 10*3/uL 0.83-4.51 [facility] Automated [facility] count a s percentage of total leukocytesOrdered By: Manpreet Ivy on 11-03-2023 Lymphocytes/100 WBC Auto (Unsp spec) 31.8 % 19-41 [facility] Basophil percentageOrdered B y: Manpreet Ivy on 11-03-2023 Basophils/100 WBC (Bld) 0.7 % 0-1 [facility] Bilirubin [Mass/Vol] 0.20 mg/dL 0.20-1.00 [facility] Comment on above: For patients on eltr ombopag therapy, use of Dimension Aspen TBIL is not recommended. Chloride [Moles/Vol] 105 mmol/L 98-107 [facility] Cholesterol [Mass/Vol] 168 mg/dL <200 [facility] Comment on above: <200 mg/dL Desirable 200-240 mg/dL Borderline >240 mg/dL High Risk Eosinophils/100 WBC (Bld) 4.5 % 0-5 [facility] Glucose [Mass/Vol] 118 mg/dL 74-106 [facility] Comment on above: Fasting Glucose resu lt from 100 to 125 mg/dL suggests IMPAIRED HOMEOSTASIS per A.D.A. criteria. Hemoglobin (Bld) [Mass/Vol] 11.0 g/dL 12.0-15.0 [facility] Monocytes/100 WBC (Bld) 8.9 % 0-10 [facility] Neutrophils (Bld) [#/Vol] 4.0 10*3/uL 2.0-7.7 [facility] Neutrophils/100 WBC (Bld) 53.8 % 47-70 [facility] Potassium [Moles/Vol] 4.0 mmol/L 3.5-5.1 [facility] Protein [Mass/Vol] 6.2 g/dL 6.4-8.2 [facility] Sodium [Moles/Vol] 138 mmol/L 136-145 [facility] Triglyceride [Mass/Vol] 187 mg/dL <199 [facility] Comment on above: The drugs N-Acetylcy steine and Metamizole may falsely depress this assay.Serum Triglycerides Reference Interval Normal <150 mg/dL Borderline high 150 - 199 mg/dL High 200 - 499 mg/dL Very High > or = 500 mg/dL WBC (Bld) [#/Vol] 7.4 10*3/uL 4.4-11.0 [facility] Determination of erythrocyte mean corpuscular volume (MCV)Ordered By: Manpreet Ivy on 11-03-2023 MCV (RBC) [Entitic vol] 87.0 fL 81-99 [facility] Erythrocyte distribution wid th ratioOrdered By: [facility] Diasjuan jose on 11-03-2023 Erythrocyte distribution width (RBC) [Ratio] 13.9 % 11.6-14.6 [facility] Erythrocyte distribution wid th standard deviationOrdered By: [facility] Gordonel Diasjuan jose on 11-03-2023 Erythrocyte distribution width (RBC) [Entitic vol] 43.9 fL 35.1-43.9 [facility] Hematocrit Auto (Bld) [Volum e fraction]Ordered By: rogeliomidlandel Ivy on 11-03-2023 Hematocrit (Bld) [Volume fraction] 34.7 % 37-47 [facility] Immature granulocytes/100 WB C Auto (Bld)Ordered By: rogeliomidlandel Ivy on 11-03-2023 Immature granulocytes/100 WBC (Bld) 0.300 % 0.0-0.9 [facility] Comment on above: IG% - Immature Granu locytes (promyelocytes, myelocytes and metamyelocytes) > 1% indicates that a LEFT SHIFT is Present. Laboratory - Chemistry and C hemistry - challengeOrdered By: [facility] Gordon[facility] Diasjuan jose on 11-03-2023 Albumin/Globulin [Mass ratio] 1.1 {ratio} 0.9-2.4 [facility] ALP [Catalytic activity/Vol] 59 U/L 45-117 [facility] ALT [Catalytic activity/Vol] 19 U/L 13-56 [facility] Cholesterol in HDL [Mass/Vol] 47 mg/dL >40 [facility] Comment on above: The drugs N-Acetylcy steine and Metamizole may falsely depress this assay. Reference Range HDL <40 mg/dL Low HDL Cholesterol HDL >or= 60 mg/dL High HDL Cholesterol Cholesterol in LDL [Mass/Vol] 84 mg/dL 0-130 [facility] CO2 [Moles/Vol] 28.0 mmol/L 21.0-32.0 [facility] Globulin (S) [Mass/Vol] 3.0 g/dL 2.2-4.2 [facility] Urea nitrogen/Creatinine [Mass ratio] 14.6 mg/mg 10-20 [facility] Laboratory - Hematology and Cell countsOrdered By: Manpreet Ivy on 11-03-2023 MCH (RBC) [Entitic mass] 27.6 pg 27.0-32.0 [facility] MCHC (RBC) [Mass/Vol] 31.7 g/dL 32-36 [facility] Nucleated RBC/100 WBC (Bld) [Ratio] 0 % 0-5 [facility] Platelet mean volume (Bld) [Entitic vol] 10.5 fL 6.2-12.0 [facility] Platelets (Bld) [#/Vol] 213 10*3/uL 150-450 [facility] No Panel InformationOrdered By: Manpreet Ivy on 11-03-2023 Estimated GFR (MDRD) Amer 72 mL/min >60 [facility] Comment on above: GFR Calc Estimated GFR (MDRD) Non-Af Amer 59 mL/min >60 [facility] Comment on above: Non- GFR Calc VLDL Cholesterol 37 mg/dL 5-40 [facility] RBC Auto (Bld) [#/Vol]Ordere d By: Manpreet Ivy on 11-03-2023 RBC (Bld) [#/Vol] 3.99 10*6/uL 4.2-5.4 [facility] Serum or plasma calcium cinthia urement (mass/volume)Ordered By: Manpreet Ivy on 11-03-2023 Calcium [Mass/Vol] 9.2 mg/dL 8.5-10.1 [facility] Serum or plasma creatinine m easurement (mass/volume)Ordered By: Manpreet Ivy on 11-03-2023 Creatinine [Mass/Vol] 0.96 mg/dL 0.55-1.02 [facility] Comment on above: The validity of the calculated GFR & GFRAA in patients over 70 years has not been determined. Clinical correlation is essential. Serum or plasma urea nitroge n measurement (mass/volume)Ordered By: Manpreet Ivy on 11-03-2023 Urea nitrogen [Mass/Vol] 14 mg/dL 7-18 [facility] Thin prep Papanicolaou smear with manual screeningOrdered By: Manpreet Ivy on 11-03-2023 Thin prep Papanicolaou smear with manual screening 3.2 g/dL 3.2-5.0 [facility] Thin prep Papanicolaou smear with manual screening 17 U/L 15-37 [facility] Thin prep Papanicolaou smear with manual screening 5 5-15 [facility] Whole blood hemoglobin A1c/t otal hemoglobin ratio (mass fraction)Ordered By: Manpreet Ivy on 11-03-2023 HbA1c (Bld) [Mass fraction] 6.9 % 3.8-5.6 [facility] Comment on above: Normal < 5.7 % Predi abetic 5.7 - 6.4 % Diabetic >or= 6.5 % Please note range changes. CNOVon 09-24-2023 CNOV Office Visit (NREUS2 ) RAMONA MIKE ([id number]) 1940 F Date Time Provider Department 09/24/23 3:00 PM RAMÍREZ LEAVITT NREUS2 During your visit today, we recorded the following information about you: Pulse Blood pressure 102/minute 130/64 Ramírez Leavitt PA-C 09/25/2023 8:21 AM Signed CC: DATA PROCESSING SYSTEMS CONSULTANT shunt f/u HPI: Mrs Mike comes to clinic today for surgical f/u. 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 [...] a history of NPH. 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 [...] reviewed which shows stable enlarged ventricle system, DATA PROCESSING SYSTEMS CONSULTANT shunt catheter in place and no acute abnormalities. We discussed benefits and risks of DATA PROCESSING SYSTEMS CONSULTANT shunt adjustment. After discussion, Ramona and her daughter would like to continue to work with PT to try and become more active without adjusting shunt. Plan for follow up in 6-[address] brain. Plan: Shunt information Shunt type: Certas Initial settin New settin Ramírez Leavitt PA-C Referring Provider: RAMÍREZ LEAVITT [[id number]] Allergies As of Date: 09/24/2023 Noted Allergy Reaction PENICILLINS 03/03/2006 10 - Anaphylaxis IODINE 04/30/2005 5 - Intolerance Date Reviewed: 09/24/2023 Reviewed by: Jackson Duran - Fully Assessed Reason for Visit: Established Patient [175] Cmt: F/u gave tablet Primary Visit Diagnosis:Other hydrocephalus (HCC) [G91.8] Order(s):CT BRAIN WO IVCON [[id number]] Order #: [id number] FUTURE Prescriptions as of 09/25/2023 - meloxicam [...] TWO TABLETS BY MOUTH WITH DINNER. - [employer] ULTRA TEST test strip TEST BLOOD SUGAR [...] Problem Li (more content not included)... 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 MQ: [id number] CT Radiation dose: Integrated Dose-Length Product (DLP) for this visit = 776 mGy*cm CT Dose Reduction Employed: None COMPARISON: CT brain without contrast 02/05/2023. RESULT: Electron Beam Photo Mask Maker (topogram) images: No additional findings. Post-operative change: Right frontal approach shunt catheter terminating in the region of foramen of [place]. The shunt reservoir resides within the right frontal scalp. The distal catheter tip courses along the right parietal scalp and postauricular soft tissues extending beyond the [id number]. No evident discontinuity along the imaged portions [...] minimally progressed as compared to prior exam. District Representative: SARITA Transcribe Date/Time: Sep 24 2023 1:57P Dictated by : KERLINE EASTON MD This examination was interpreted and the report reviewed and electronically signed by: MONTRELL NEVES MD on Sep 24 2023 2:18PM EST [id number] Normal [facility] Absolute lymphocyte countOrd ered By: Manpreet Ivy on 09-16-2023 Lymphocytes Auto (Unsp spec) [#/Vol] 1.50 10*3/uL 0.83-4.51 [facility] Basophil percentageOrdered B y: Manpreet Ivy on 09-16-2023 Basophils/100 WBC (Bld) 0.4 % 0-1 [facility] Chloride [Moles/Vol] 104 mmol/L 98-107 [facility] Eosinophils/100 WBC (Bld) 0.4 % 0-5 [facility] Glucose [Mass/Vol] 206 mg/dL 74-106 [facility] Comment on above: Glucose result great er than or equal to 200 mg/dLsuggests DIABETES MELLITUS per A.D.A. criteria. Neutrophils (Bld) [#/Vol] 10.6 10*3/uL 2.0-7.7 [facility] Neutrophils/100 WBC (Bld) 79.4 % 47-70 [facility] Potassium [Moles/Vol] 4.1 mmol/L 3.5-5.1 [facility] Sodium [Moles/Vol] 136 mmol/L 136-145 [facility] WBC (Bld) [#/Vol] 13.4 10*3/uL 4.4-11.0 [facility] Blood erythrocytes count (nu mber/volume)Ordered By: Manpreet Ivy on 09-16-2023 RBC (Bld) [#/Vol] 4.48 10*6/uL 4.2-5.4 [facility] Blood hemoglobin measurement (mass/volume)Ordered By: Manpreet Ivy on 09-16-2023 Hemoglobin (Bld) [Mass/Vol] 12.6 g/dL 12.0-15.0 [facility] Blood lymphocytes/100 leukoc ytesOrdered By: Manpreet Ivy on 09-16-2023 Lymphocytes/100 WBC (Bld) 11.2 % 19-41 [facility] Blood monocytes/100 leukocyt esOrdered By: Manpreet Ivy on 01-10-2024 Monocytes/100 WBC (Bld) 7.9 % 0-10 [facility] Blood platelet mean volumeOr dered By: Manpreet Ivy on 09-16-2023 Platelet mean volume (Bld) [Entitic vol] 11.4 fL 6.2-12.0 [facility] Determination of erythrocyte mean corpuscular volume (MCV)Ordered By: Manpreet Ivy on 09-16-2023 MCV (RBC) [Entitic vol] 87.1 fL 81-99 [facility] Hematocrit Auto (Bld) [Volum e fraction]Ordered By: Manpreet Ivy on 09-16-2023 Hematocrit (Bld) [Volume fraction] 39.0 % 37-47 [facility] Laboratory - Chemistry and C hemistry - challengeOrdered By: rogeliomidlandel Ivy on 09-16-2023 CO2 [Moles/Vol] 23.0 mmol/L 21.0-32.0 [facility] Urea nitrogen/Creatinine [Mass ratio] 20.2 mg/mg 10-20 [facility] Laboratory - Hematology and Cell countsOrdered By: Manpreet Ivy on 09-16-2023 Erythrocyte distribution width (RBC) [Entitic vol] 41.3 fL 35.1-43.9 [facility] Erythrocyte distribution width (RBC) [Ratio] 13.2 % 11.6-14.6 [facility] Immature granulocytes/100 WBC (Bld) 0.700 % 0.0-0.9 [facility] Comment on above: IG% - Immature Granu locytes (promyelocytes, myelocytes and metamyelocytes) > 1% indicates that a LEFT SHIFT is Present. MCH (RBC) [Entitic mass] 28.1 pg 27.0-32.0 [facility] Nucleated RBC/100 WBC (Bld) [Ratio] 0 % 0-5 [facility] MCHC Auto (RBC) [Mass/Vol]Or dered By: Manpreet Ivy on 09-16-2023 MCHC (RBC) [Mass/Vol] 32.3 g/dL 32-36 [facility] No Panel InformationOrdered By: Manpreet Ivy on 09-16-2023 Estimated GFR (MDRD) Amer 65 mL/min >60 [facility] Comment on above: GFR Calc Estimated GFR (MDRD) Non-Af Amer 54 mL/min >60 [facility] Comment on above: Non- GFR Calc Platelets bldOrdered By: Kevin Ivy on 09-16-2023 Platelets (Bld) [#/Vol] 188 10*3/uL 150-450 [facility] Serum or plasma calcium cinthia urement (mass/volume)Ordered By: Manpreet Ivy on 09-16-2023 Calcium [Mass/Vol] 9.7 mg/dL 8.5-10.1 [facility] Serum or plasma creatinine m easurement (mass/volume)Ordered By: Manpreet Ivy on 09-16-2023 Creatinine [Mass/Vol] 1.04 mg/dL 0.55-1.02 [facility] Comment on above: The validity of the calculated GFR & GFRAA in patients over 70 years has not been determined. Clinical correlation is essential. Serum or plasma urea nitroge n measurement (mass/volume)Ordered By: Manpreet Ivy on 09-16-2023 Urea nitrogen [Mass/Vol] 21 mg/dL 7-18 [facility] Thin prep Papanicolaou smear with manual screeningOrdered By: Manpreet Ivy on 09-16-2023 Thin prep Papanicolaou smear with manual screening 9 5-15 [facility] Absolute lymphocyte countOrd ered By: Manpreet Ivy on 08-04-2023 Lymphocytes Auto (Unsp spec) [#/Vol] 2.17 10*3/uL 0.83-4.51 [facility] Basophil percentageOrdered B y: Manpreet Ivy on 08-04-2023 Basophils/100 WBC (Bld) 0.7 % 0-1 [facility] Bilirubin [Mass/Vol] 0.30 mg/dL 0.20-1.00 [facility] Comment on above: For patients on eltr ombopag therapy, use of Dimension Aspen TBIL is not recommended. Chloride [Moles/Vol] 101 mmol/L 98-107 [facility] Cholesterol [Mass/Vol] 117 mg/dL <200 [facility] Comment on above: <200 mg/dL Desirable 200-240 mg/dL Borderline >240 mg/dL High Risk Eosinophils/100 WBC (Bld) 1.6 % 0-5 [facility] Glucose [Mass/Vol] 96 mg/dL 74-106 [facility] Neutrophils (Bld) [#/Vol] 4.7 10*3/uL 2.0-7.7 [facility] Neutrophils/100 WBC (Bld) 60.6 % 47-70 [facility] Potassium [Moles/Vol] 3.7 mmol/L 3.5-5.1 [facility] Protein [Mass/Vol] 6.5 g/dL 6.4-8.2 [facility] Sodium [Moles/Vol] 136 mmol/L 136-145 [facility] Triglyceride [Mass/Vol] 179 mg/dL <199 [facility] Comment on above: The drugs N-Acetylcy steine and Metamizole may falsely depress this assay.Serum Triglycerides Reference Interval Normal <150 mg/dL Borderline high 150 - 199 mg/dL High 200 - 499 mg/dL Very High > or = 500 mg/dL WBC (Bld) [#/Vol] 7.7 10*3/uL 4.4-11.0 [facility] Blood erythrocytes count (nu mber/volume)Ordered By: Manpreet Iyv on 08-04-2023 RBC (Bld) [#/Vol] 4.52 10*6/uL 4.2-5.4 [facility] Blood hemoglobin measurement (mass/volume)Ordered By: Manpreet Ivy on 08-04-2023 Hemoglobin (Bld) [Mass/Vol] 12.9 g/dL 12.0-15.0 [facility] Blood lymphocytes/100 leukoc ytesOrdered By: Manpreet Ivy on 08-04-2023 Lymphocytes/100 WBC (Bld) 28.3 % 19-41 [facility] Blood monocytes/100 leukocyt esOrdered By: Manpreet Ivy on 08-04-2023 Monocytes/100 WBC (Bld) 8.5 % 0-10 [facility] Blood platelet mean volumeOr dered By: Manpreet Ivy on 08-04-2023 Platelet mean volume (Bld) [Entitic vol] 10.4 fL 6.2-12.0 [facility] Determination of erythrocyte mean corpuscular volume (MCV)Ordered By: Manpreet Ivy on 08-04-2023 MCV (RBC) [Entitic vol] 88.1 fL 81-99 [facility] Hematocrit Auto (Bld) [Volum e fraction]Ordered By: rogeliomidlandel Ivy on 08-04-2023 Hematocrit (Bld) [Volume fraction] 39.8 % 37-47 [facility] Laboratory - Chemistry and C hemistry - challengeOrdered By: [facility] Diasjuan jose on 08-04-2023 ALP [Catalytic activity/Vol] 55 U/L 45-117 [facility] ALT [Catalytic activity/Vol] 18 U/L 13-56 [facility] CO2 [Moles/Vol] 28.0 mmol/L 21.0-32.0 [facility] Globulin (S) [Mass/Vol] 3.0 g/dL 2.2-4.2 [facility] Urea nitrogen/Creatinine [Mass ratio] 13.1 mg/mg 10-20 [facility] Laboratory - Hematology and Cell countsOrdered By: [facility] Diasjuan jose on 08-04-2023 Erythrocyte distribution width (RBC) [Entitic vol] 41.7 fL 35.1-43.9 [facility] Erythrocyte distribution width (RBC) [Ratio] 12.8 % 11.6-14.6 [facility] Immature granulocytes/100 WBC (Bld) 0.300 % 0.0-0.9 [facility] Comment on above: IG% - Immature Granu locytes (promyelocytes, myelocytes and metamyelocytes) > 1% indicates that a LEFT SHIFT is Present. MCH (RBC) [Entitic mass] 28.5 pg 27.0-32.0 [facility] Nucleated RBC/100 WBC (Bld) [Ratio] 0 % 0-5 [facility] MCHC Auto (RBC) [Mass/Vol]Or dered By: Manpreet Ivy on 08-04-2023 MCHC (RBC) [Mass/Vol] 32.4 g/dL 32-36 [facility] No Panel InformationOrdered By: Manpreet Ivy on 08-04-2023 Estimated GFR (MDRD) Amer 69 mL/min >60 [facility] Comment on above: GFR Calc Estimated GFR (MDRD) Non-Af Amer 57 mL/min >60 [facility] Comment on above: Non- GFR Calc Platelets bldOrdered By: Kevin clarael Ivy on 08-04-2023 Platelets (Bld) [#/Vol] 203 10*3/uL 150-450 [facility] Serum or plasma albumin cinthia urement (mass/volume)Ordered By: Manpreet Ivy on 08-04-2023 Albumin [Mass/Vol] 3.5 g/dL 3.2-5.0 [facility] Serum or plasma albumin/glob ulin mass ratioOrdered By: Manpreet Ivy on 08-04-2023 Albumin/Globulin [Mass ratio] 1.2 {ratio} 0.9-2.4 [facility] Serum or plasma calcium cinthia urement (mass/volume)Ordered By: Manpreet Ivy on 08-04-2023 Calcium [Mass/Vol] 9.7 mg/dL 8.5-10.1 [facility] Serum or plasma cholesterol in HDL measurement (mass/volume)Ordered By: Manpreet Ivy on 08-04-2023 Cholesterol in HDL [Mass/Vol] 44 mg/dL >40 [facility] Comment on above: The drugs N-Acetylcy steine and Metamizole may falsely depress this assay. Reference Range HDL <40 mg/dL Low HDL Cholesterol HDL >or= 60 mg/dL High HDL Cholesterol Serum or plasma cholesterol in VLDL measurement (mass/volume)Ordered By: Manpreet Ivy on 08-04-2023 Cholesterol in VLDL [Mass/Vol] 36 mg/dL 5-40 [facility] Serum or plasma creatinine m easurement (mass/volume)Ordered By: Manpreet Ivy on 08-04-2023 Creatinine [Mass/Vol] 0.99 mg/dL 0.55-1.02 [facility] Comment on above: The validity of the calculated GFR & GFRAA in patients over 70 years has not been determined. Clinical correlation is essential. Serum or plasma low density lipoprotein (LDL) cholesterol measurement (mass/volume)Ordered By: Manpreet Arunoliviajuan jose on 08-04-2023 Cholesterol in LDL [Mass/Vol] 37 mg/dL 0-130 [facility] Serum or plasma urea nitroge n measurement (mass/volume)Ordered By: Manpreet Biju on 08-04-2023 Urea nitrogen [Mass/Vol] 13 mg/dL 7-18 [facility] Thin prep Papanicolaou smear with manual screeningOrdered By: Baileyrogeliojohnel Ivy on 08-04-2023 Thin prep Papanicolaou smear with manual screening 15 U/L 15-37 [facility] Thin prep Papanicolaou smear with manual screening 7 5-15 [facility] Whole blood hemoglobin A1c/t otal hemoglobin ratio (mass fraction)Ordered By: Nelsonel Ivy on 08-04-2023 HbA1c (Bld) [Mass fraction] 7.2 % 3.8-5.6 [facility] Comment on above: Normal < 5.7 % Predi abetic 5.7 - 6.4 % Diabetic >or= 6.5 % Please note range changes. Absolute lymphocyte countOrd ered By: Manpreet Arunoliviajuan jose on 06-12-2023 Lymphocytes Auto (Unsp spec) [#/Vol] 2.27 10*3/uL 0.83-4.51 [facility] Basophil percentageOrdered B y: Manpreet Aurnoliviajuan jose on 06-12-2023 Basophils/100 WBC (Bld) 0.7 % 0-1 [facility] Bilirubin [Mass/Vol] 0.20 mg/dL 0.20-1.00 [facility] Comment on above: For patients on eltr ombopag therapy, use of Dimension Aspen TBIL is not recommended. Chloride [Moles/Vol] 104 mmol/L 98-107 [facility] Eosinophils/100 WBC (Bld) 1.8 % 0-5 [facility] Glucose [Mass/Vol] 177 mg/dL 74-106 [facility] Comment on above: Fasting Glucose resu lt greater than or equal to 126 mg/dL suggests DIABETES MELLITUS per A.D.A. criteria. Neutrophils (Bld) [#/Vol] 4.5 10*3/uL 2.0-7.7 [facility] Neutrophils/100 WBC (Bld) 58.8 % 47-70 [facility] Potassium [Moles/Vol] 4.3 mmol/L 3.5-5.1 [facility] Protein [Mass/Vol] 6.4 g/dL 6.4-8.2 [facility] Sodium [Moles/Vol] 137 mmol/L 136-145 [facility] WBC (Bld) [#/Vol] 7.6 10*3/uL 4.4-11.0 [facility] Blood erythrocytes count (nu mber/volume)Ordered By: Manpreet Ivy on 06-12-2023 RBC (Bld) [#/Vol] 4.46 10*6/uL 4.2-5.4 [facility] Blood hemoglobin measurement (mass/volume)Ordered By: Manpreet Ivy on 06-12-2023 Hemoglobin (Bld) [Mass/Vol] 12.5 g/dL 12.0-15.0 [facility] Blood lymphocytes/100 leukoc ytesOrdered By: Manpreet Ivy on 06-12-2023 Lymphocytes/100 WBC (Bld) 30.0 % 19-41 [facility] Blood monocytes/100 leukocyt esOrdered By: Manpreet Ivy on 06-12-2023 Monocytes/100 WBC (Bld) 8.3 % 0-10 [facility] Blood platelet mean volumeOr dered By: Manpreet Ivy on 06-12-2023 Platelet mean volume (Bld) [Entitic vol] 10.6 fL 6.2-12.0 [facility] Determination of erythrocyte mean corpuscular volume (MCV)Ordered By: Manpreet Ivy on 06-12-2023 MCV (RBC) [Entitic vol] 88.3 fL 81-99 [facility] Hematocrit Auto (Bld) [Volum e fraction]Ordered By: Manpreet Ivy on 06-12-2023 Hematocrit (Bld) [Volume fraction] 39.4 % 37-47 [facility] Laboratory - Chemistry and C hemistry - challengeOrdered By: Manpreet Ivy on 06-12-2023 ALP [Catalytic activity/Vol] 80 U/L 45-117 [facility] ALT [Catalytic activity/Vol] 25 U/L 13-56 [facility] CO2 [Moles/Vol] 28.0 mmol/L 21.0-32.0 [facility] Globulin (S) [Mass/Vol] 3.0 g/dL 2.2-4.2 [facility] Urea nitrogen/Creatinine [Mass ratio] 15.5 mg/mg 10-20 [facility] Laboratory - Hematology and Cell countsOrdered By: Manpreet Ivy on 06-12-2023 Erythrocyte distribution width (RBC) [Entitic vol] 42.2 fL 35.1-43.9 [facility] Erythrocyte distribution width (RBC) [Ratio] 13.1 % 11.6-14.6 [facility] Immature granulocytes/100 WBC (Bld) 0.400 % 0.0-0.9 [facility] Comment on above: IG% - Immature Granu locytes (promyelocytes, myelocytes and metamyelocytes) > 1% indicates that a LEFT SHIFT is Present. MCH (RBC) [Entitic mass] 28.0 pg 27.0-32.0 [facility] Nucleated RBC/100 WBC (Bld) [Ratio] 0 % 0-5 [facility] MCHC Auto (RBC) [Mass/Vol]Or dered By: Manpreet Ivy on 06-12-2023 MCHC (RBC) [Mass/Vol] 31.7 g/dL 32-36 [facility] No Panel InformationOrdered By: Manpreet Ivy on 06-12-2023 Estimated GFR (MDRD) Amer 66 mL/min >60 [facility] Comment on above: GFR Calc Estimated GFR (MDRD) Non-Af Amer 54 mL/min >60 [facility] Comment on above: Non- GFR Calc Thyroid Stimulating Hormone (TSH) 2.97 uIU/mL 0.358-3.74 [facility] Platelets bldOrdered By: Kevin Ivy on 06-12-2023 Platelets (Bld) [#/Vol] 191 10*3/uL 150-450 [facility] Serum or plasma albumin cinthia urement (mass/volume)Ordered By: Manpreet Ivy on 06-12-2023 Albumin [Mass/Vol] 3.4 g/dL 3.2-5.0 [facility] Serum or plasma albumin/glob ulin mass ratioOrdered By: Manpreet Ivy on 06-12-2023 Albumin/Globulin [Mass ratio] 1.1 {ratio} 0.9-2.4 [facility] Serum or plasma calcium cinthia urement (mass/volume)Ordered By: Manpreet Ivy on 06-12-2023 Calcium [Mass/Vol] 9.3 mg/dL 8.5-10.1 [facility] Serum or plasma creatinine m easurement (mass/volume)Ordered By: Manpreet Ivy on 06-12-2023 Creatinine [Mass/Vol] 1.03 mg/dL 0.55-1.02 [facility] Comment on above: The validity of the calculated GFR & GFRAA in patients over 70 years has not been determined. Clinical correlation is essential. Serum or plasma urea nitroge n measurement (mass/volume)Ordered By: Manpreet Ivy on 06-12-2023 Urea nitrogen [Mass/Vol] 16 mg/dL 7-18 [facility] Thin prep Papanicolaou smear with manual screeningOrdered By: Manpreet Ivy on 06-12-2023 Thin prep Papanicolaou smear with manual screening 16 U/L 15-37 [facility] Thin prep Papanicolaou smear with manual screening 5 5-15 [facility] Absolute lymphocyte countOrd ered By: Manpreet Ivy on 05-05-2023 Lymphocytes Auto (Unsp spec) [#/Vol] 2.66 10*3/uL 0.83-4.51 [facility] Basophil percentageOrdered B y: Manpreet Ivy on 05-05-2023 Basophils/100 WBC (Bld) 0.6 % 0-1 [facility] Bilirubin [Mass/Vol] 0.20 mg/dL 0.20-1.00 [facility] Comment on above: For patients on eltr ombopag therapy, use of Dimension Aspen TBIL is not recommended. Chloride [Moles/Vol] 102 mmol/L 98-107 [facility] Cholesterol [Mass/Vol] 130 mg/dL <200 [facility] Comment on above: <200 mg/dL Desirable 200-240 mg/dL Borderline >240 mg/dL High Risk Eosinophils/100 WBC (Bld) 2.5 % 0-5 [facility] Glucose [Mass/Vol] 155 mg/dL 74-106 [facility] Comment on above: Fasting Glucose resu lt greater than or equal to 126 mg/dL suggests DIABETES MELLITUS per A.D.A. criteria. Neutrophils (Bld) [#/Vol] 4.8 10*3/uL 2.0-7.7 [facility] Neutrophils/100 WBC (Bld) 57.4 % 47-70 [facility] Potassium [Moles/Vol] 4.0 mmol/L 3.5-5.1 [facility] Protein [Mass/Vol] 6.4 g/dL 6.4-8.2 [facility] Sodium [Moles/Vol] 137 mmol/L 136-145 [facility] Triglyceride [Mass/Vol] 124 mg/dL <199 [facility] Comment on above: The drugs N-Acetylcy steine and Metamizole may falsely depress this assay.Serum Triglycerides Reference Interval Normal <150 mg/dL Borderline high 150 - 199 mg/dL High 200 - 499 mg/dL Very High > or = 500 mg/dL WBC (Bld) [#/Vol] 8.4 10*3/uL 4.4-11.0 [facility] Blood erythrocytes count (nu mber/volume)Ordered By: Manpreet Ivy on 05-05-2023 RBC (Bld) [#/Vol] 4.30 10*6/uL 4.2-5.4 [facility] Blood hemoglobin measurement (mass/volume)Ordered By: Manpreet Ivy on 05-05-2023 Hemoglobin (Bld) [Mass/Vol] 12.1 g/dL 12.0-15.0 [facility] Blood lymphocytes/100 leukoc ytesOrdered By: Manpreet Ivy on 05-05-2023 Lymphocytes/100 WBC (Bld) 31.7 % 19-41 [facility] Blood monocytes/100 leukocyt esOrdered By: Manpreet Ivy on 05-05-2023 Monocytes/100 WBC (Bld) 7.4 % 0-10 [facility] Blood platelet mean volumeOr dered By: Manpreet Arunelmer on 05-05-2023 Platelet mean volume (Bld) [Entitic vol] 10.8 fL 6.2-12.0 [facility] CNPNon 05-05-2023 CNPN Telephone (FAMPWS) RAMONA MIKE ([id number]) 1940 F Date Time Provider Department 05/05/23 [facility] During your visit today, we recorded the following information about you: Bj Santana LPN 05/05/2023 12:09 PM Signed Daughter calling to let you know pt was admitted into [facility] yesterday 05-04-23. Daughter has 2 questions. 1)WVHL [...] was probably to reduce the risk of DC; it would be OK to stop this [...] Date Reviewed: 04/17/2023 Reviewed by: Laquita Coulter APRN.MUSIC EXECUTIVE - Fully Assessed Reason for Visit: medication [...] by BJ SANTANA LPN on 05/06/23 Normal [facility] Determination of erythrocyte mean corpuscular volume (MCV)Ordered By: Manpreet Ivy on 05-05-2023 MCV (RBC) [Entitic vol] 89.3 fL 81-99 [facility] Hematocrit Auto (Bld) [Volum e fraction]Ordered By: Manpreet Ivy on 05-05-2023 Hematocrit (Bld) [Volume fraction] 38.4 % 37-47 [facility] Laboratory - Chemistry and C hemistry - challengeOrdered By: Manpreet Ivy on 05-05-2023 ALP [Catalytic activity/Vol] 63 U/L 45-117 [facility] ALT [Catalytic activity/Vol] 21 U/L 13-56 [facility] CO2 [Moles/Vol] 29.0 mmol/L 21.0-32.0 [facility] Free T4 [Mass/Vol] 0.79 ng/dL 0.76-1.46 [facility] Globulin (S) [Mass/Vol] 2.8 g/dL 2.2-4.2 [facility] Urea nitrogen/Creatinine [Mass ratio] 21.9 mg/mg 10-20 [facility] Laboratory - Hematology and Cell countsOrdered By: Manpreet Ivy on 05-05-2023 Erythrocyte distribution width (RBC) [Entitic vol] 42.4 fL 35.1-43.9 [facility] Erythrocyte distribution width (RBC) [Ratio] 13.0 % 11.6-14.6 [facility] Immature granulocytes/100 WBC (Bld) 0.400 % 0.0-0.9 [facility] Comment on above: IG% - Immature Granu locytes (promyelocytes, myelocytes and metamyelocytes) > 1% indicates that a LEFT SHIFT is Present. MCH (RBC) [Entitic mass] 28.1 pg 27.0-32.0 [facility] Nucleated RBC/100 WBC (Bld) [Ratio] 0 % 0-5 [facility] MCHC Auto (RBC) [Mass/Vol]Or dered By: Manpreet Ivy on 05-05-2023 MCHC (RBC) [Mass/Vol] 31.5 g/dL 32-36 [facility] No Panel InformationOrdered By: Manpreet Ivy on 05-05-2023 Estimated GFR (MDRD) Amer 64 mL/min >60 [facility] Comment on above: GFR Calc Estimated GFR (MDRD) Non-Af Amer 53 mL/min >60 [facility] Comment on above: Non- GFR Calc Thyroid Stimulating Hormone (TSH) 2.94 uIU/mL 0.358-3.74 [facility] Vitamin D 25-Hydroxy 95.3 ng/mL [facility] Comment on above: Vitamin D 25(OH) Sta tus Range Deficiency <20 ng/mL (50nmol/L) Insufficiency 20 - 30 ng/mL (50 - 75 nmol/L) Sufficiency 30 - 100 ng/mL (75 - 250 nmol/L) Toxicity >100 ng/mL (>250 nmol/L) Platelets bldOrdered By: Kevin Ivy on 05-05-2023 Platelets (Bld) [#/Vol] 182 10*3/uL 150-450 [facility] Serum or plasma albumin cinthia urement (mass/volume)Ordered By: Manpreet Ivy on 05-05-2023 Albumin [Mass/Vol] 3.6 g/dL 3.2-5.0 [facility] Serum or plasma albumin/glob ulin mass ratioOrdered By: Manpreet Ivy on 05-05-2023 Albumin/Globulin [Mass ratio] 1.3 {ratio} 0.9-2.4 [facility] Serum or plasma calcium cinthia urement (mass/volume)Ordered By: Manpreet Ivy on 05-05-2023 Calcium [Mass/Vol] 9.2 mg/dL 8.5-10.1 [facility] Serum or plasma cholesterol in HDL measurement (mass/volume)Ordered By: Manpreet Ivy on 05-05-2023 Cholesterol in HDL [Mass/Vol] 57 mg/dL >40 [facility] Comment on above: The drugs N-Acetylcy steine and Metamizole may falsely depress this assay. Reference Range HDL <40 mg/dL Low HDL Cholesterol HDL >or= 60 mg/dL High HDL Cholesterol Serum or plasma cholesterol in VLDL measurement (mass/volume)Ordered By: Manpreet Ivy on 05-05-2023 Cholesterol in VLDL [Mass/Vol] 25 mg/dL 5-40 [facility] Serum or plasma creatinine m easurement (mass/volume)Ordered By: Manpreet Ivy on 05-05-2023 Creatinine [Mass/Vol] 1.05 mg/dL 0.55-1.02 [facility] Comment on above: The validity of the calculated GFR & GFRAA in patients over 70 years has not been determined. Clinical correlation is essential. Serum or plasma low density lipoprotein (LDL) cholesterol measurement (mass/volume)Ordered By: Manpreet Ivy on 05-05-2023 Cholesterol in LDL [Mass/Vol] 48 mg/dL 0-130 [facility] Serum or plasma urea nitroge n measurement (mass/volume)Ordered By: Manpreet Ivy on 05-05-2023 Urea nitrogen [Mass/Vol] 23 mg/dL 7-18 [facility] Thin prep Papanicolaou smear with manual screeningOrdered By: Manpreet Ivy on 05-05-2023 Thin prep Papanicolaou smear with manual screening 16 U/L 15- [facility] Thin prep Papanicolaou smear with manual screening 6 5-15 [facility] Whole blood hemoglobin A1c/t otal hemoglobin ratio (mass fraction)Ordered By: Manpreet Ivy on 05-05-2023 HbA1c (Bld) [Mass fraction] 7.8 % 3.8-5.6 [facility] Comment on above: Normal < 5.7 % Predi abetic 5.7 - 6.4 % Diabetic >or= 6.5 % Please note range changes. [facility] ([id number]) 1940 F Date Time Provider Department 04/21/23 [facility] During your visit today, we recorded the following information about you: Lynette Adamson LPN 04/21/2023 11:22 AM Signed Talia with [facility] [employer] calls to report that pt is looking at moving into their facility for Assisted Living. Talia requested face sheet, HANDP, OV notes. Faxed to: [phone] as reqeusted. Lynette Adamson LPN Allergies As of Date: 04/21/2023 Noted Allergy Reaction PENICILLINS 03/03/2006 10 - Anaphylaxis IODINE 04/30/2005 5 - Intolerance Date Reviewed: 04/17/2023 Reviewed by: Laquita Coulter APRN.MUSIC EXECUTIVE - Fully Assessed Reason for Visit: Patient Update [4524] Prescriptions as of 04/21/2023 - meloxicam (MOBIC) [...] TWO TABLETS BY MOUTH WITH DINNER. - PharmlyTOUCH ULTRA TEST test strip TEST BLOOD SUGAR 1 TIMES DAILY. DX TYPE 2 DM CONTROLLED E11.9 INSULIN: NO. - aspirin, enteric coated (ASPIRIN, ENTERIC COATED) 81 mg EC tablet Take 1 tablet by mouth once daily. - Lactobacillus acidophilus (PROBIOTIC ORAL) Take by mouth once daily. - glucosamine HCl/chondroitin roamno (GLUCOSAMINE-CHONDROITI N ORAL) Take by mouth once [...] Status:Closed by LYNETTE ADAMSON LPN on 04/21/[address] [facility] CNOVon 04-17-2023 CNOV Office Visit (HILLARY ) RAMONA MIKE ([id number]) 1940 F Date Time Provider Department 04/17/23 1:20 PM LAQUITA COULTER During your visit today, we recorded the following information about you: Pulse Respiration Blood pressure 78/minute 16/minute 140/76 Laquita Coulter APRN.MUSIC EXECUTIVE 04/17/2023 3:34 PM Signed This is a 82 year old female who presents today with: Patient presents with: Follow Up: admission to [facility]. HISTORY OF PRESENT ILLNESS: Ramona Mike is a 82 year old female. Patient presents with: Follow Up: admission to [facility]. Here in the office for follow-up prior to admission to long-term care facility ( [facility]), Daughter present for this visit. [...] home. Dementia: Following with brain health, Marcelo Vizcainomonika MUSIC EXECUTIVE. Taking Aricept 5 mg daily. Shunt in [...] Father Jaguar (more content not included)... Normal [facility] CNOVon 02-05-2023 CNOV Office Visit (NREUS2 ) RAMONA MIKE ([id number]) 1940 F Date Time Provider Department 02/05/23 3:00 PM RAMÍREZ LEAVITT NREUS2 During your visit today, we recorded the following information about you: Pulse Blood pressure Weight Height 83/minute 129/57 80.7 kg 1.524 m Ramírez Leavitt PA-C 02/05/2023 3:15 PM Signed CC: DATA PROCESSING SYSTEMS CONSULTANT shunt f/u HPI: Mrs Mike comes to clinic today for surgical f/u. 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 [...] with a history of NPH. She had DATA PROCESSING SYSTEMS CONSULTANT shunt implantation on 04/13/20 with Certas valve. [...] reviewed which shows stable enlarged ventricle system, DATA PROCESSING SYSTEMS CONSULTANT shunt catheter in place and no acute abnormalities. Follow up in 6-[address] brain Plan: Shunt information Shunt type: Certas Initial settin New settin Ramírez Leavitt PA-C Referring Provider: RAMÍREZ LEAVITT [[id number]] Allergies As of Date: 02/05/2023 Noted Allergy Reaction PENICILLINS 03/03/2006 10 - Anaphylaxis IODINE 04/30/2005 5 - Intolerance Date Reviewed: 02/05/2023 Reviewed by: Jaylene Otero MA - Fully Assessed Primary Visit Diagnosis:Other hydrocephalus (HCC) [G91.8] Order(s):CT BRAIN WO AUNDREA [9131412] Order #: [id number] FUTURE Prescriptions as of 02/05/2023 - simvastatin [...] 2, controlled, (more content not included)... Normal [facility]Non [facility] RAM[facility] MI[facility] ([id number]) 1940 F Date Time Provider Department 02/05/23 [facility]SH MC[facility]IR [facility] During your visit today, we recorded the following information about you: Priscilla Wells 02/05/2023 2:01 PM Signed Ramona Mike's daughterRoselyn is calling Harsh Mcnair MD today. [facility] pharmacy advised daughter authorization is needed before they can fill SITagliptin phosphate (JANUVIA) 100 mg tablet A new prescription was sent on 01/29 Please contact pharmacy for clarification and return daughters call at [phone] Nadine Martin Ma 02/05/2023 2:16 PM Signed Prior auth needed Lauren Paz Ma 02/05/2023 2:39 PM Signed Electronic PA submitted Lauren Chen LPN 02/06/2023 2:10 PM Signed Insurance has reviewed this and it has been denied. Response is. Date: 02/06/2023 Harsh Mcnair [address] [place] [address] RE: Denial of request for coverage of [...] what alternative is appropriate for you. Harsh Mcanir MD 02/06/2023 3:06 PM Signed OK fro Tradjenta as ordered; it appears this is preferred by her insurance Harsh Mcnair MD Sakshi Chen DEN 02/06/2023 4:40 PM Signed This info was [...] daily. Proble (more content not included)... Normal [facility] CT BRAIN WO IVCONon 02-06-20 CT BRAIN WO IVCON * * *Final Report* * * DATE OF EXAM: Feb 05 2023 1:50PM [facility] - [facility] BRAIN WO IVCON / [...] were required COMPARISON: Head CT 08/23/2020. RESULT: Electron Beam Photo Mask Maker (topogram) images: No additional findings. Coregistration software utilized for slice by slice comparison in the identical plane. Stable right frontal approach ventriculostomy catheter with surrounding encephalomalacia and mild to moderate ventriculomegaly. Negative for an acute parenchymal insult, hemorrhage, mass effect, and extra-axial collection. Unremarkable osseous structures, orbits, paranasal sinuses, mastoids, and soft tissues. IMPRESSION: Stable ventriculostomy catheter/ventriculomega ly. District Representative: SARITA Transcribe Date/Time: Feb 05 2023 3:12P Dictated by : BETY ONTIVEROS MD This examination was interpreted and the report reviewed and electronically signed by: BETY ONTIVEROS MD on Feb 05 2023 3:14PM EST [id number] Normal [facility] CNOVon 01-29-2023 CNOV Office Visit (FAMPWS ) MIKERAMONA ([id number]) 1940 F Date Time Provider Department 01/29/23 2:00 PM HARSH MCNAIR During your visit today, we recorded the following information about you: Pulse Respiration Blood pressure Weight 68/minute 16/minute 130/78 80.7 kg Harsh Mcnair MD 01/29/2023 2:32 PM Signed Chief Complaint Patient presents with: 6 Month Exam HPI Ramona Webbman is a 82 year old female who presents here today for 6 month follow up. Here with her daughters Mouna and Roselyn. Has an advanced directive. Getting people that stay with her all day and night Mon-Thu and then her daughters care for her [...] 75 mg daily. Dementia: Following with [facility] Marcelo Mancini CNP. Is on Aricept 5 mg once daily. [...] by mouth once daily. Take with food. PharmlyTOUCH ULTRA TEST test strip TEST BLOOD SUGAR [...] mg tab (more content not included)... Normal [facility] Stas 01-28-2023 [facility] Telephone (NREUS2) RAMONA MIKE ([id number]) 1940 F Date Time Provider Department 01/28/23 ROYA WARD During your visit today, we recorded the [...] Encounter Status:Closed by ROYA WARD on 01/28/[address] [facility] CNOVon 01-27-2023 CNOV Office Visit (UROLMD ) RAMONA MIKE ([id number]) 1940 F Date Time Provider Department 01/27/23 10:30 AM KENNETH PARK JR UROLMD During your visit today, we recorded the [...] clear with drinking extra fluids. Please call [facility] at [phone] M-F 8:00 am to 5:00pm With any questions you may have and ask for the Triage Nurse After 5:00 pm or weekends [phone] Thank you 07/13/13 AYANNA gutierrez Kenneth Park Jr, MD 01/27/2023 11:07 AM Signed CYSTOSCOPY PROCEDURE NOTE: Ramona Mike is a 82 year old female who presents with urge incontinence for a cystoscopy. Pt ID verified with patient: Yes Fire risk assessment done Procedure verified with patient: Yes Procedure confirmed with physician and product support technician: Yes UNIVERSAL PROTOCOL / SAFETY CHECKLIST Procedure [...] Set for prn MD Estelle Wylie Jr, LPN 01/27/2023 11:32 AM Signed AMBULATORY CYSTOSCOPY PROCEDURE [...] 0-10. Patie (more content not included)... Normal [facility] CBC panel Auto (Bld)on 01-21 Erythrocyte distribution width (RBC) [Ratio] 13.1 % Normal 11.5-15.0 [facility] Comment on above: Order Comment: Speci men Type: BLOOD SPECIMENOrdering Facility: [facility] Address: [address] [place] [phone] Performed By: #### 5 8410-2 ####[facility] LABCLIA [id number] [place] [address] [place] Hematocrit (Bld) [Volume fraction] 41.4 % Normal 36.0-46.0 [facility] Comment on above: Order Comment: Speci men Type: BLOOD SPECIMENOrdering Facility: [facility] Address: [address] [place] [address] Performed By: #### 5 8410-2 ####[facility] [id number] [place] [address] [place] Hemoglobin (Bld) [Mass/Vol] 13.4 g/dL Normal 11.5-15.5 [facility] Comment on above: Order Comment: Speci men Type: BLOOD SPECIMENOrdering Facility: [facility] Address: [address] [place] [address] Performed By: #### 5 8410-2 ####[facility] [id number] [address] [place] MCH (RBC) [Entitic mass] 28.5 pg Normal 26.0-34.0 [facility] Comment on above: Order Comment: Speci men Type: BLOOD SPECIMENOrdering Facility: [facility] Address: [address] [place] [address] Performed By: #### 5 8410-2 ####[facility] [id number] [place] [address] [place] MCHC (RBC) [Mass/Vol] 32.4 g/dL Normal 30.5-36.0 [facility] Comment on above: Order Comment: Speci men Type: BLOOD SPECIMENOrdering Facility: [facility] Address: [address] [place] [address] Performed By: #### 5 8410-2 ####[facility] [id number] [place] [address] [place] MCV (RBC) [Entitic vol] 88.1 fL Normal 80.0-100.0 C [facility] Comment on above: Order Comment: Speci men Type: BLOOD SPECIMENOrdering Facility: [facility] Address: [address] Performed By: #### 5 8410-2 ####[facility] LABCLIA [id number] [place] [address] [place] Nucleated RBC (Bld) [#/Vol] 10*3/uL Normal <0.01 [facility] Comment on above: Order Comment: Speci men Type: BLOOD SPECIMENOrdering Facility: [facility] Address: [address] [place], [place] [id number] Performed By: #### 5 8410-2 ####[facility] LABIA [id number] [place] [address] [place] Platelet mean volume (Bld) [Entitic vol] 10.9 fL Normal 9.0-12.7 [facility] Comment on above: Order Comment: Speci men Type: BLOOD SPECIMENOrdering Facility: [facility] Address: [address] [place], [place] [address] Performed By: #### 5 8410-2 ####[facility] LABIA [id number] [place] [address] [place] Platelets (Bld) [#/Vol] 174 10*3/uL Normal 150-400 [facility] Comment on above: Order Comment: Speci men Type: BLOOD SPECIMENOrdering Facility: [facility] Address: [address] Performed By: #### 5 8410-2 ####[facility] LABIA [id number] [place] [address] [place] RBC (Bld) [#/Vol] 4.70 10*6/uL Normal 3.90-5.20 [facility] Comment on above: Order Comment: Speci men Type: BLOOD SPECIMENOrdering Facility: [facility] Address: [address] Performed By: #### 5 8410-2 ####[facility] LABCLIA [id number] [place] [address] [facility] WBC (Bld) [#/Vol] 6.43 10*3/uL Normal 3.70-11.00 [facility] Comment on above: Order Comment: Speci men Type: BLOOD SPECIMENOrdering Facility: [facility] Address: [address] [place], [place] [address] Performed By: #### 5 8410-2 ####[facility] LABCLIA [id number] [place] [address] [facility] Comprehensive metabolic 2000 panelon 01-21-2023 Albumin [Mass/Vol] 4.3 g/dL Normal 3.9-4.9 [facility] Comment on above: Order Comment: Speci men Type: BLOOD SPECIMENOrdering Facility: [facility] Address: [address] [place], [place] [address] Performed By: #### 2 4323-8 ####[facility] LABCLIA [id number] [place] [address] [place] ALP [Catalytic activity/Vol] 68 U/L Normal 34-123 [facility] Comment on above: Order Comment: Speci men Type: BLOOD SPECIMENOrdering Facility: [facility] Address: [address] [place], [place] [address] Performed By: #### 2 4323-8 ####[facility] LABCLIA [id number] [place] [address] [place] ALT [Catalytic activity/Vol] 19 U/L Normal 7-38 [facility] Comment on above: Order Comment: Speci men Type: BLOOD SPECIMENOrdering Facility: [facility] Address: [address] [place], [place] [address] Performed By: #### 2 4323-8 ####[facility] LABCLIA [id number] [place] [address] [place] Anion gap [Moles/Vol] 13 mmol/L Normal 9-18 [facility] Comment on above: Order Comment: Speci men Type: BLOOD SPECIMENOrdering Facility: [facility] Address: [address] [place] [address] Performed By: #### 2 4323-8 ####[facility] LABCLIA [id number] [place] [address] [place] AST [Catalytic activity/Vol] 25 U/L Normal 13-35 [facility] Comment on above: Order Comment: Speci men Type: BLOOD SPECIMENOrdering Facility: [facility] Address: [address] [place] [address] Performed By: #### 2 4323-8 ####[facility] LABCLIA [id number] [place] [address] [place] Bilirubin [Mass/Vol] 0.2 mg/dL Normal 0.2-1.3 [facility] Comment on above: Order Comment: Speci men Type: BLOOD SPECIMENOrdering Facility: [facility] Address: [address] [place] [address] Performed By: #### 2 4323-8 ####[facility] LABCLIA [id number] [place] [address] [place] Calcium [Mass/Vol] 10.1 mg/dL Normal 8.5-10.2 [facility] Comment on above: Order Comment: Speci men Type: BLOOD SPECIMENOrdering Facility: [facility] Address: [address] [place], [place] [address] Performed By: #### 2 4323-8 ####[facility] LABCLIA [id number] [place] [address] [place] Chloride [Moles/Vol] 98 mmol/L Normal 97-105 [facility] Comment on above: Order Comment: Speci men Type: BLOOD SPECIMENOrdering Facility: [facility] Address: [address] [address] Performed By: #### 2 4323-8 ####[facility] LABCLIA [id number] [address] [facility] CO2 [Moles/Vol] 25 mmol/L Normal 22-30 [facility] Comment on above: Order Comment: Speci men Type: BLOOD SPECIMENOrdering Facility: [facility] Address: [address] [address] Performed By: #### 2 4323-8 ####[facility] LABIA [id number] [address] Creatinine [Mass/Vol] 0.88 mg/dL Normal 0.58-0.96 [facility] Comment on above: Order Comment: Speci men Type: BLOOD SPECIMENOrdering Facility: [facility] Address: [address] [place] [address] Performed By: #### 2 4323-8 ####[facility] LABIA [id number] [address] ESTIMATED GLOMERULAR FILTRATION RATE 66 mL/min/1.73m??? Normal >=60 [facility] Comment on above: Order Comment: Speci men Type: BLOOD SPECIMENOrdering Facility: [facility] Address: [address] [place] [address] Result Comment: Adia mated Glomerular Filtration Rate [...] actual GFR. Performed By: #### 2 4323-8 ####[facility] LABCLIA [id number] [address] [id number] [address] [place] Glucose [Mass/Vol] 179 mg/dL High 74-99 [facility] Comment on above: Order Comment: Speci men Type: BLOOD SPECIMENOrdering Facility: [facility] Address: [address] [place] [address] Result Comment: The [place] Diabetes Association (ADA) provides guidance for cutoff [...] Standards of Medical Care in Diabetes 2016, [place] [employer] Association. Diabetes Care. 2016.39(Suppl 1). Performed By: #### 2 4323-8 ####[facility] LABCLIA [id number] [place] [address] [place] Potassium [Moles/Vol] 4.7 mmol/L Normal 3.7-5.1 [facility] Comment on above: Order Comment: Santiagoi men Type: BLOOD SPECIMENOrdering Facility: [facility] Address: [address] [place] [address] Performed By: #### 2 4323-8 ####[facility] LABCLIA [id number] [place] [address] [place] Protein [Mass/Vol] 6.6 g/dL Normal 6.3-8.0 [facility] Comment on above: Order Comment: Speci men Type: BLOOD SPECIMENOrdering Facility: [facility] Address: [address] [place] [address] Performed By: #### 2 4323-8 ####[facility] LABCLIA [id number] [place] [address] [place] Sodium [Moles/Vol] 136 mmol/L Normal 136-144 [facility] Comment on above: Order Comment: Speci men Type: BLOOD SPECIMENOrdering Facility: [facility] Address: [address] [address] Performed By: #### 2 4323-8 ####[facility] LABCLIA [id number] [place] [address] [place] Urea nitrogen [Mass/Vol] 18 mg/dL Normal 7-21 [facility] Comment on above: Order Comment: Santiagoi men Type: BLOOD SPECIMENOrdering Facility: [facility] Address: [address] [address] Performed By: #### 2 4323-8 ####[facility] LABIA [id number] [address] [place] HbA1c (Bld)on 01-21-2023 Average glucose Estimated from glycated hemoglobin (Bld) [Mass/Vol] 166 mg/dL Normal [facility] Comment on above: Order Comment: Asiya men Type: BLOOD SPECIMENOrdering Facility: [facility] Address: [address] [place] [address] Result Comment: eAG: (Estimated average glucose) is a calculated value from HgbA1c and is sales and marketing representative of the average blood glucose level in the last 2-3 month period. Performed By: #### 5 5454-3 ####[facility] [id number] [place] [address] [place] HbA1c (Bld) [Mass fraction] 7.4 % High 4.3-5.6 [facility] Comment on above: Order Comment: Asiya calderon Type: BLOOD SPECIMENOrdering Facility: [facility] Address: [address] [place] [address] Result Comment: Amer [place] Diabetes Association guidelines indicate that patients with HgbA1c in the range 5.7-6.4% are at increased risk for development of diabetes, and intervention by lifestyle modification may be beneficial. HgbA1c greater or equal to 6.5% is considered diagnostic of diabetes. Performed By: #### 5 5454-3 ####[facility] LABCLIA [id number] [place] [address] [place] Lipid 1996 panelon 3 Cholesterol [Mass/Vol] 144 mg/dL Normal <200 [facility] Comment on above: Order Comment: Speci men Type: BLOOD SPECIMENOrdering Facility: [facility] Address: [address] [place] [address] Result Comment: <200 mg/dL, Desirable 200-239 mg/dL, Borderline high >239 mg/dL, High Performed By: #### 2 4331-1 ####[facility] LABCLIA [id number] [address] Cholesterol in HDL [Mass/Vol] 55 mg/dL Normal >39 [facility] Comment on above: Order Comment: Speci men Type: BLOOD SPECIMENOrdering Facility: [facility] Address: [address] [place] [address] Result Comment: 40-5 9 mg/dL, Acceptable >59 mg/dL, High: Negative risk factor for coronary heart disease <40 mg/dL, Low: Positive risk factor for coronary heart disease Performed By: #### 2 4331-1 ####[facility] LABCLIA [id number] [address] OF [facility] Cholesterol in LDL [Mass/Vol] 52 mg/dL Normal <100 [facility] Comment on above: Order Comment: Speci men Type: BLOOD SPECIMENOrdering Facility: [facility] Address: [address] [address] Result Comment: <100 mg/dL, Optimal 100-129 mg/dL, Near optimal/above optimal 130-159 mg/dL, Borderline high 160-189 mg/dL, High >189 mg/dL, Very high Secondary prevention optimal LDL Cholesterol levels are recommended to be < 70 mg/dL Performed By: #### 2 4331-1 ####[facility] LABCLIA [id number] [address] [place] Cholesterol in LDL/Cholesterol in HDL [Mass ratio] 0.95 {ratio} Normal <2.54 [facility] Comment on above: Order Comment: Asiya calderon Type: BLOOD SPECIMENOrdering Facility: [facility] Address: [address] [address] Result Comment: Refe rence: 1. National Cholesterol Education Program ATP III Guideline At-A-Glance Quick Desk Reference: National Heart, Lung, and Blood [place]. National Institutes of Health. 2001: NIH Publication No. 01-3305. 2. An International Atherosclerosis Society position paper: global recommendations for the management of dyslipidemia: executive summary, Atherosclerosis. 2014: 232(2):410-413. Performed By: #### 2 4331-1 ####[facility] LABCLIA [id number] [address] [place] Cholesterol in VLDL [Mass/Vol] 37 mg/dL High <30 [facility] Comment on above: Order Comment: Asiya mancera Type: BLOOD SPECIMENOrdering Facility: [facility] Address: [address] [place] [address] Performed By: #### 2 4331-1 ####[facility] LABCLIA [id number] [address] [place] Cholesterol non HDL [Mass/Vol] 89 mg/dL Normal <130 [facility] Comment on above: Order Comment: Asiya calderon Type: BLOOD SPECIMENOrdering Facility: [facility] Address: [address] [place] [address] Result Comment: <130 mg/dL, Optimal 130-159 mg/dL, Near optimal/above optimal 160-189 mg/dL, Borderline high 190-219 mg/dL, High >219 mg/dL, Very high Secondary prevention optimal non HDL Cholesterol levels are recommended to be <100 mg/dL Performed By: #### 2 4331-1 ####[facility] LABCLIA [id number] [place] [address] [place] Cholesterol.total/Beatriz sterol in HDL [Mass ratio] 2.62 {ratio} Normal <5.10 [facility] Comment on above: Order Comment: Speci men Type: BLOOD SPECIMENOrdering Facility: [facility] Address: [address] [address] Performed By: #### 2 4331-1 ####[facility] LABCLIA [id number] [place] [address] [place] FASTING TIME 12 hrs Normal [facility] Comment on above: Order Comment: Speci men Type: BLOOD SPECIMENOrdering Facility: [facility] Address: [address] [place] [address] Performed By: #### 2 4331-1 ####[facility] LABCLIA [id number] [place] [address] [place] Triglyceride [Mass/Vol] 184 mg/dL High <150 [facility] Comment on above: Order Comment: Speci men Type: BLOOD SPECIMENOrdering Facility: [facility] Address: [address] [place] [address] Result Comment: <150 mg/dL, Normal 150-199 mg/dL, Borderline high 200-499 mg/dL, High >499 mg/dL, Very high Performed By: #### 2 4331-1 ####[facility] LABCLIA [id number] [place] [address] [place] UA DIP, URINE (POC)on 2022 BILIRUBIN UA (POCT) Negative Negative [facility] CLARITY UA (POCT) Clear [facility] COLOR UA (POCT) Yellow [facility] GLUCOSE UA (POCT) 100 mg/dL Abnormal Negative mg/dL [facility] HEMOGLOBIN/BLOOD UA (POCT) Negative Negative [facility] KETONE UA (POCT) Negative Negative mg/dL [facility] LEUKOCYTES UA (POCT) Negative Negative [facility] NITRITE UA (POCT) Negative Negative [facility] PH UA (POCT) 5.5 4.5 - 8.0 [facility] Protein Ql (U) Negative Negative mg/dL [facility] SPECIFIC GRAVITY UA (POCT) 1.020 1.005 - 1.030 [facility] UROBILINOGEN UA (POCT) 0.2 E.U./dL Alysia l E.U./dL [facility] Glucose Glucometer (BldC) [M ass/Vol]on 02-24-2022 Glucose [Mass/Vol] 203 mg/dL 74-106 [facility] Work Phone: Comment on above: MANAGEMENT OF PATIEN T CARE PER NURSING PROTOCOL Absolute lymphocyte counton 02-23-2022 Lymphocytes Auto (Unsp spec) [#/Vol] 1.93 10*3/uL 0.83-4.51 [facility] Work Phone: Basophil percentageon 2021 Basophils/100 WBC (Bld) 0.4 % 0-1 [facility] Work Phone: Chloride [Moles/Vol] 104 mmol/L 98-107 [facility] Work Phone: Eosinophils/100 WBC (Bld) 1.5 % 0-5 [facility] Work Phone: Glucose [Mass/Vol] 209 mg/dL 74-106 [facility] Work Phone: Comment on above: Glucose result great er than or equal to 200 mg/dLsuggests DIABETES MELLITUS per A.D.A. criteria. Neutrophils (Bld) [#/Vol] 5.6 10*3/uL 2.0-7.7 [facility] Work Phone: Neutrophils/100 WBC (Bld) 66.9 % 47-70 [facility] Work Phone: Potassium [Moles/Vol] 3.6 mmol/L 3.5-5.1 [facility] Work Phone: Sodium [Moles/Vol] 137 mmol/L 136-145 [facility] Work Phone: WBC (Bld) [#/Vol] 8.4 10*3/uL 4.4-11.0 [facility] Work Phone: Blood erythrocytes count (nu mber/volume)on 02-23-2022 RBC (Bld) [#/Vol] 4.85 10*6/uL 4.2-5.4 [facility] Work Phone: Blood hemoglobin measurement (mass/volume)on 02-23-2022 Hemoglobin (Bld) [Mass/Vol] 13.5 g/dL 12.0-15.0 [facility] Work Phone: [phone] Blood lymphocytes/100 leukoc yteson 02-23-2022 Lymphocytes/100 WBC (Bld) 22.9 % 19-41 [facility] Work Phone: [phone] Blood monocytes/100 leukocyt eson 02-23-2022 Monocytes/100 WBC (Bld) 7.7 % 0-10 [facility] Work Phone: Blood platelet mean volumeon 02-23-2022 Platelet mean volume (Bld) [Entitic vol] 9.9 fL 6.2-12.0 [facility] Work Phone: Determination of erythrocyte mean corpuscular volume (MCV)on 02-23-2022 MCV (RBC) [Entitic vol] 85.8 fL 81-99 [facility] Work Phone: Hematocrit Auto (Bld) [Volum e fraction]on 02-23-2022 Hematocrit (Bld) [Volume fraction] 41.6 % 37-47 [facility] Work Phone: [phone] Laboratory - Chemistry and C hemistry - challengeon 02-23-2022 CO2 [Moles/Vol] 26.0 mmol/L 21.0-32.0 [facility] Work Phone: [phone] Urea nitrogen/Creatinine [Mass ratio] 19.2 mg/mg 10-20 [facility] Work Phone: [phone] Laboratory - Hematology and Cell countson 02-23-2022 Erythrocyte distribution width (RBC) [Entitic vol] 41.1 fL 35.1-43.9 [facility] Work Phone: [phone] Erythrocyte distribution width (RBC) [Ratio] 13.2 % 11.6-14.6 [facility] Work Phone: Immature granulocytes/100 WBC (Bld) 0.600 % 0.0-0.9 [facility] Work Phone: [phone] Comment on above: IG% - Immature Granu locytes (promyelocytes, myelocytes and metamyelocytes) > 1% indicates that a LEFT SHIFT is Present. MCH (RBC) [Entitic mass] 27.8 pg 27.0-32.0 [facility] Work Phone: [phone] Nucleated RBC/100 WBC (Bld) [Ratio] 0 % 0-5 [facility] Work Phone: [phone] MCHC Auto (RBC) [Mass/Vol]on 02-23-2022 MCHC (RBC) [Mass/Vol] 32.5 g/dL 32-36 [facility] Work Phone: No Panel Informationon 02-23 Estimated Creatinine Clearance Calc 31.69 ml/min [facility] Work Phone: Estimated GFR (MDRD) Amer 98 mL/min >60 [facility] Work Phone: [phone] Comment on above: GFR Calc Estimated GFR (MDRD) Non-Af Amer 81 mL/min >60 [facility] Work Phone: Comment on above: Non- GFR Calc Platelets bldon 02-23-2022 Platelets (Bld) [#/Vol] 211 10*3/uL 150-450 [facility] Work Phone: [phone] Serum or plasma calcium cinthia urement (mass/volume)on 02-23-2022 Calcium [Mass/Vol] 9.6 mg/dL 8.5-10.1 [facility] Work Phone: [phone] Serum or plasma creatinine m easurement (mass/volume)on 02-23-2022 Creatinine [Mass/Vol] 0.73 mg/dL 0.55-1.02 [facility] Work Phone: [phone] Comment on above: The validity of the calculated GFR & GFRAA in patients over 70 years has not been determined. Clinical correlation is essential. Serum or plasma urea nitroge n measurement (mass/volume)on 02-23-2022 Urea nitrogen [Mass/Vol] 14 mg/dL 7-18 [facility] Work Phone: [phone] Thin prep Papanicolaou smear with manual screeningon 02-23-2022 Thin prep Papanicolaou smear with manual screening 7 5-15 [facility] Work Phone: [phone] Basophil percentageon 2021 Basophil percentage 0 SEEN /hpf 0-5 [facility] Work Phone: [phone] Basophil percentage 3.0 mg/dL 2.5-4.9 [facility] Work Phone: [phone] Bilirubin [Mass/Vol] 0.30 mg/dL 0.20-1.00 [facility] Work Phone: [phone] Comment on above: For patients on eltr ombopag therapy, use of Dimension Aspen TBIL is not recommended. Protein [Mass/Vol] 6.7 g/dL 6.4-8.2 [facility] Work Phone: Bilirubin Test strip Ql (U)o n 02-22-2022 Bilirubin Ql (U) Negative Negative [facility] Work Phone: Ketones Test strip Ql (U)on 02-22-2022 Ketones Ql (U) Negative Negative [facility] Work Phone: [phone] Laboratory - Chemistry and C hemistry - challengeon 02-22-2022 ALP [Catalytic activity/Vol] 62 U/L 45-117 [facility] Work Phone: [phone] ALT [Catalytic activity/Vol] 22 U/L 13-56 [facility] Work Phone: [phone] Globulin (S) [Mass/Vol] 3.2 g/dL 2.2-4.2 [facility] Work Phone: [phone] Magnesium [Mass/Vol] 2.1 mg/dL 1.6-2.6 [facility] Work Phone: [phone] Mucus LM Ql (Urine sed)on Mucus Ql (Urine sed) 0 SEEN /hpf [facility] Work Phone: Nitrite Test strip Ql (U)on 02-22-2022 Nitrite Ql (U) Negative Negative [facility] Work Phone: No Panel Informationon 02-22 Thyroid Stimulating Hormone (TSH) 5.17 uIU/mL 0.358-3.74 [facility] Work Phone: Troponin I High Sensitivity 10 pg/mL 3.0-54.0 [facility] Work Phone: Comment on above: Please Note: New Eulalia t Units and Gender Specific Reference Ranges. For more information see Policy Stat Procedure Aspen High Sensitivity Troponin (TNIH) and attachments. Protein Test strip Ql (U)on 02-22-2022 Protein Ql (U) Negative Negative [facility] Work Phone: Serum or plasma albumin cinthia urement (mass/volume)on 02-22-2022 Albumin [Mass/Vol] 3.5 g/dL 3.2-5.0 [facility] Work Phone: Serum or plasma albumin/glob ulin mass ratioon 02-22-2022 Albumin/Globulin [Mass ratio] 1.1 {ratio} 0.9-2.4 [facility] Work Phone: Squamous epithelial cells de tection in urine sediment by light microscopyon 02-22-2022 Epithelial cells.squamous LM Ql (Urine sed) 0 SEEN /hpf 5-10 [facility] Work Phone: Thin prep Papanicolaou smear with manual screeningon 02-22-2022 Thin prep Papanicolaou smear with manual screening 15 U/L 15-37 [facility] Work Phone: Urine blood detectionon 02-05 RBC Ql (U) Negative Negative [facility] Work Phone: RBC Ql (U) 0 SEEN /hpf 0-5 [facility] Work Phone: Urine clarityon 02-22-2022 Clarity (U) Clear Clear [facility] Work Phone: Urine color determinationon 02-22-2022 Color (U) Yellow Yellow [facility] Work Phone: Urine glucose detectionon Glucose Ql (U) 1000 mg/dl Normal [facility] Work Phone: Urine leukocyte esterase det ection by dipstickon 02-22-2022 Leukocyte esterase Test strip Ql (U) Negative Negative [facility] Work Phone: Urine pHon 02-22-2022 pH (U) 8.0 [pH] 5.0 - 8.0 [facility] Work Phone: Urine sediment bacteria coun t by microscopy (number/high power field)on 02-22-2022 Bacteria LM.HPF (Urine sed) [#/Area] 0 /[HPF] None Seen [facility] Work Phone: Urine specific gravity measu rementon 02-22-2022 Specific gravity (U) [Rel density] 1.015 1.002-1.030 [facility] Work Phone: Urobilinogen Auto test strip Ql (U)on 02-22-2022 Urobilinogen Ql (U) Normal mg/dl Normal [facility] Work Phone: Absolute lymphocyte counton 02-21-2022 Lymphocytes Auto (Unsp spec) [#/Vol] 2.45 10*3/uL 0.83-4.51 [facility] Work Phone: Basophil percentageon 2021 Basophils/100 WBC (Bld) 0.7 % 0-1 [facility] Work Phone: Chloride [Moles/Vol] 102 mmol/L 98-107 [facility] Work Phone: Eosinophils/100 WBC (Bld) 2.1 % 0-5 [facility] Work Phone: Glucose [Mass/Vol] 108 mg/dL 74-106 [facility] Work Phone: Comment on above: Fasting Glucose resu lt from 100 to 125 mg/dL suggests IMPAIRED HOMEOSTASIS per A.D.A. criteria. Neutrophils (Bld) [#/Vol] 4.2 10*3/uL 2.0-7.7 [facility] Work Phone: [phone] Neutrophils/100 WBC (Bld) 55.5 % 47-70 [facility] Work Phone: [phone] Potassium [Moles/Vol] 4.2 mmol/L 3.5-5.1 [facility] Work Phone: [phone] Sodium [Moles/Vol] 139 mmol/L 136-145 [facility] Work Phone: [phone] WBC (Bld) [#/Vol] 7.6 10*3/uL 4.4-11.0 [facility] Work Phone: [phone] Blood erythrocytes count (nu mber/volume)on 02-21-2022 RBC (Bld) [#/Vol] 4.70 10*6/uL 4.2-5.4 [facility] Work Phone: [phone] Blood hemoglobin measurement (mass/volume)on 02-21-2022 Hemoglobin (Bld) [Mass/Vol] 13.1 g/dL 12.0-15.0 [facility] Work Phone: Blood lymphocytes/100 leukoc yteson 02-21-2022 Lymphocytes/100 WBC (Bld) 32.4 % 19-41 [facility] Work Phone: [phone] Blood monocytes/100 leukocyt eson 02-21-2022 Monocytes/100 WBC (Bld) 8.9 % 0-10 [facility] Work Phone: [phone] Blood platelet mean volumeon 02-21-2022 Platelet mean volume (Bld) [Entitic vol] 10.0 fL 6.2-12.0 [facility] Work Phone: [phone] Determination of erythrocyte mean corpuscular volume (MCV)on 02-21-2022 MCV (RBC) [Entitic vol] 85.5 fL 81-99 [facility] Work Phone: Glucose Glucometer (BldC) [M ass/Vol]on 02-21-2022 Glucose [Mass/Vol] 119 mg/dL 74-106 [facility] Work Phone: [phone] Comment on above: MANAGEMENT OF PATIEN T CARE PER NURSING PROTOCOL Hematocrit Auto (Bld) [Volum e fraction]on 02-21-2022 Hematocrit (Bld) [Volume fraction] 40.2 % 37-47 [facility] Work Phone: [phone] Laboratory - Chemistry and C hemistry - challengeon 02-21-2022 CO2 [Moles/Vol] 30.0 mmol/L 21.0-32.0 [facility] Work Phone: [phone] Urea nitrogen/Creatinine [Mass ratio] 18.3 mg/mg 10-20 [facility] Work Phone: [phone] Laboratory - Hematology and Cell countson 02-21-2022 Erythrocyte distribution width (RBC) [Entitic vol] 41.9 fL 35.1-43.9 [facility] Work Phone: [phone] Erythrocyte distribution width (RBC) [Ratio] 13.3 % 11.6-14.6 [facility] Work Phone: [phone] Immature granulocytes/100 WBC (Bld) 0.400 % 0.0-0.9 [facility] Work Phone: [phone] Comment on above: IG% - Immature Granu locytes (promyelocytes, myelocytes and metamyelocytes) > 1% indicates that a LEFT SHIFT is Present. MCH (RBC) [Entitic mass] 27.9 pg 27.0-32.0 [facility] Work Phone: [phone] Nucleated RBC/100 WBC (Bld) [Ratio] 0 % 0-5 [facility] Work Phone: [phone] MCHC Auto (RBC) [Mass/Vol]on 02-21-2022 MCHC (RBC) [Mass/Vol] 32.6 g/dL 32-36 [facility] Work Phone: [phone] No Panel Informationon 02-21 Estimated Creatinine Clearance Calc 28.95 ml/min [facility] Work Phone: Estimated GFR (MDRD) Amer 58 mL/min >60 [facility] Work Phone: Comment on above: GFR Calc Estimated GFR (MDRD) Non-Af Amer 48 mL/min >60 [facility] Work Phone: Comment on above: Non- GFR Calc Platelets bldon 02-21-2022 Platelets (Bld) [#/Vol] 217 10*3/uL 150-450 [facility] Work Phone: Serum or plasma calcium cinthia urement (mass/volume)on 02-21-2022 Calcium [Mass/Vol] 9.9 mg/dL 8.5-10.1 [facility] Work Phone: Serum or plasma creatinine m easurement (mass/volume)on 02-21-2022 Creatinine [Mass/Vol] 1.15 mg/dL 0.55-1.02 [facility] Work Phone: Comment on above: The validity of the calculated GFR & GFRAA in patients over 70 years has not been determined. Clinical correlation is essential. Serum or plasma urea nitroge n measurement (mass/volume)on 02-21-2022 Urea nitrogen [Mass/Vol] 21 mg/dL 7-18 [facility] Work Phone: Thin prep Papanicolaou smear with manual screeningon 02-21-2022 Thin prep Papanicolaou smear with manual screening 7 5-15 [facility] Work Phone: XR Chest PA and Lateralon IMPRESSION: No acute radiographic abnormality. District Representative: PSCB Transcribe Date/Time: Oct 09 2021 12:51P Dictated by : LEWIS HENSLEY MD This examination was interpreted and the report reviewed and electronically signed by: LEWIS HENSLEY MD on Oct 09 2021 12:53PM [facility] DIVISION OF RADIOLOGY * * *Final Report* [...] the thoracic spine. DIVISION OF RADIOLOGY Provider, [facility] - 10/09/2021 * * *Final Report* * * DATE OF EXAM: Oct 09 2021 12:25PM WO [id number] - XR CHEST 2V FRONTAL/LAT / [...] spine. IMPRESSION IMPRESSION: No acute radiographic abnormality. District Representative: PSCB Transcribe Date/Time: Oct 09 2021 12:51P Dictated by : LEWIS HENSLEY MD This examination was interpreted and the report reviewed and electronically signed by: LEWIS HENSLEY MD on Oct 09 2021 12:53PM EST [facility] Radiology Study observation (narrative) Cami abbott [facility] XR Chest PA and LateralOrder ed By: [facility] Provider on 10-09-2021 [facility] Absolute lymphocyte counton 09-04-2021 Lymphocytes Auto (Unsp spec) [#/Vol] 0.84 10*3/uL 0.83-4.51 [facility] Work Phone: Basophil percentageon 2020 Chloride [Moles/Vol] 98 mmol/L 98-107 [facility] Work Phone: Eosinophils/100 WBC (Bld) 0.7 % 0-5 [facility] Work Phone: Glucose [Mass/Vol] 200 mg/dL 74-106 [facility] Work Phone: Comment on above: Glucose result great er than or equal to 200 mg/dLsuggests DIABETES MELLITUS per A.D.A. criteria.Please note revised GLUCOSE reference range effective 2017. Neutrophils (Bld) [#/Vol] 5.3 10*3/uL 2.0-7.7 [facility] Work Phone: Potassium [Moles/Vol] 4.0 mmol/L 3.5-5.1 [facility] Work Phone: Sodium [Moles/Vol] 134 mmol/L 136-145 [facility] Work Phone: WBC (Bld) [#/Vol] 7.2 10*3/uL 4.4-11.0 [facility] Work Phone: Blood erythrocytes count (nu mber/volume)on 09-04-2021 RBC (Bld) [#/Vol] 4.65 10*6/uL 4.2-5.4 [facility] Work Phone: Blood hemoglobin measurement (mass/volume)on 09-04-2021 Hemoglobin (Bld) [Mass/Vol] 13.0 g/dL 12.0-15.0 [facility] Work Phone: Blood lymphocytes/100 leukoc yteson 09-04-2021 Lymphocytes/100 WBC (Bld) 11.7 % 19-41 [facility] Work Phone: Blood monocytes/100 leukocyt eson 09-04-2021 Monocytes/100 WBC (Bld) 11.6 % 0-10 [facility] Work Phone: Blood platelet mean volumeon 09-04-2021 Platelet mean volume (Bld) [Entitic vol] 10.2 fL 6.2-12.0 [facility] Work Phone: [phone] Determination of erythrocyte mean corpuscular volume (MCV)on 09-04-2021 MCV (RBC) [Entitic vol] 86.0 fL 81-99 [facility] Work Phone: [phone] Hematocrit Auto (Bld) [Volum e fraction]on 09-04-2021 Hematocrit (Bld) [Volume fraction] 40.0 % 37-47 [facility] Work Phone: [phone] Laboratory - Chemistry and C hemistry - challengeon 09-04-2021 CO2 [Moles/Vol] 28.0 mmol/L 21.0-32.0 [facility] Work Phone: [phone] Urea nitrogen/Creatinine [Mass ratio] 17.1 mg/mg 10-20 [facility] Work Phone: [phone] Laboratory - Hematology and Cell countson 09-04-2021 Basophils/100 WBC (Unsp spec) 0.3 % 0-1 [facility] Work Phone: [phone] Erythrocyte distribution width (RBC) [Entitic vol] 40.7 fL 35.1-43.9 [facility] Work Phone: [phone] Erythrocyte distribution width (RBC) [Ratio] 13.1 % 11.6-14.6 [facility] Work Phone: [phone] Immature granulocytes/100 WBC (Bld) 1.500 % 0.0-0.9 [facility] Work Phone: [phone] Comment on above: IG% - Immature Granu locytes (promyelocytes, myelocytes and metamyelocytes) > 1% indicates that a LEFT SHIFT is Present. MCH (RBC) [Entitic mass] 28.0 pg 27.0-32.0 [facility] Work Phone: [phone] Neutrophils/100 WBC (Bld) 74.2 % 47-70 [facility] Work Phone: [phone] Nucleated RBC/100 WBC (Bld) [Ratio] 0 % 0-5 [facility] Work Phone: MCHC Auto (RBC) [Mass/Vol]on 09-04-2021 MCHC (RBC) [Mass/Vol] 32.5 g/dL 32-36 [facility] Work Phone: No Panel Informationon 09-04 SARS-CoV-2 Antigen (Rapid) SARS-CoV-2 (COVID 19) [facility] Work Phone: Estimated Creatinine Clearance Calc 31.69 ml/min [facility] Work Phone: Estimated GFR (MDRD) Amer 69 mL/min >60 [facility] Work Phone: Comment on above: GFR Calc Estimated GFR (MDRD) Non-Af Amer 57 mL/min >60 [facility] Work Phone: Comment on above: Non- GFR Calc Platelets bldon 09-04-2021 Platelets (Bld) [#/Vol] 158 10*3/uL 150-450 [facility] Work Phone: Serum or plasma calcium cinthia urement (mass/volume)on 09-04-2021 Calcium [Mass/Vol] 9.7 mg/dL 8.5-10.1 [facility] Work Phone: Serum or plasma creatinine m easurement (mass/volume)on 09-04-2021 Creatinine [Mass/Vol] 1.00 mg/dL 0.55-1.02 [facility] Work Phone: Comment on above: The validity of the calculated GFR & GFRAA in patients over 70 years has not been determined. Clinical correlation is essential. Serum or plasma urea nitroge n measurement (mass/volume)on 09-04-2021 Urea nitrogen [Mass/Vol] 17 mg/dL 7-18 [facility] Work Phone: Thin prep Papanicolaou smear with manual screeningon 09-04-2021 Thin prep Papanicolaou smear with manual screening 8 5-15 [facility] Work Phone: XR Chest PA and Lateralon IMPRESSION: Streaky opacity in the left lung base may be related to atelectasis or possibly pneumonia in the correct clinical setting. Minimal blunting of the costophrenic angles may be related to trace effusions or pleural thickening. District Representative: SARITA Transcribe Date/Time: Sep 03 2021 3:30P Dictated by : JOVITA ARROYO MD This examination was interpreted and the report reviewed and electronically signed by: JOVITA ARROYO MD on Sep 03 2021 3:33PM [facility] DIVISION OF RADIOLOGY * * *Final Report* [...] RESULT: Lines, tubes, and devices: Partially imaged [employer] PROCESSING [employer]S CONSULTANT shunt catheter projects over the central chest. Lungs and pleura: Streaky opacity in the left lung base. Minimal blunting of costophrenic angles. No pneumothorax. Cardiomediastinal silhouette: Normal cardiomediastinal silhouette. Bones and soft tissues: Degenerative changes are present within the thoracic spine. DIVISION OF RADIOLOGY Provider, [facility] - 09/03/2021 * * *Final Report* * * DATE OF EXAM: Sep 03 2021 3:27PM WOX [id number] - XR CHEST 2V FRONTAL/LAT / PROCEDURE REASON: Cough * * * * Physician Interpretation * * * * EXAMINATION: CHEST RADIOGRAPH (2 VIEW FRONTAL & LATERAL) CLINICAL HISTORY: Cough MQ: [id number] EXAM DATE/TIME: 09/03/2021 3:27 PM COMPARISON: 04/13/2020 RESULT: Lines, tubes, and devices: Partially imaged DATA PROCESSING SYSTEMS CONSULTANT shunt catheter projects over the central chest. [...] related to trace effusions or pleural thickening. District Representative: SARITA Transcribe Date/Time: Sep 03 2021 3:30P Dictated by : JOVITA ARROYO MD This examination was interpreted and the report reviewed and electronically signed by: JOVITA ARROYO MD on Sep 03 2021 3:33PM EST [facility] Radiology Study [facility] (narrative) [facility] and LateralOrder ed By: Ccf Provider on 09-03-2021 [facility] Vital Signs Date Time Vital Sign Value Performing Clinician Abram caputo 04-17-2023 13:12-0400 Diastolic blood pressure 76 mm[Hg] Laquita Coulter EDUCATIONAL INTERPRETER.MUSIC EXECUTIVE Work Phone: [facility] 04-17-2023 13:12-0400 Heart rate 78 /min Laquita Coulter EDUCATIONAL INTERPRETER.MUSIC EXECUTIVE Work Phone: [facility] 04-17-2023 13:12-0400 Respiratory rate 16 /min Laquita Coulter EDUCATIONAL INTERPRETER.MUSIC EXECUTIVE Work Phone: [facility] 04-17-2023 13:12-0400 SaO2% (BldA) [Mass fraction] 97 % Laquita Coulter EDUCATIONAL INTERPRETER.MUSIC EXECUTIVE Work Phone: [facility] 04-17-2023 13:12-0400 Systolic blood pressure 140 mm[Hg] Laquita Coulter EDUCATIONAL INTERPRETER.MUSIC EXECUTIVE Work Phone: [facility] 02-05-2023 14:50-0400 Body height 152.4 cm Ramírez REZA-C Work Phone: [facility] 02-05-2023 14:50-0400 Body weight 80.74 kg Ramírez Leavitt PA-C Work Phone: [facility] 02-05-2023 14:50-0400 Diastolic blood pressure 57 mm[Hg] Ramírez REZA-C Work Phone: [facility] 02-05-2023 14:50-0400 Heart rate 83 /min Ramírez Schwieterman PA-C Work Phone: [facility] 02-05-2023 14:50-0400 SaO2% (BldA) [Mass fraction] 98 % Ramírez Schwieterman PA-C Work Phone: [facility] 02-05-2023 14:50-0400 Systolic blood pressure 129 mm[Hg] Ramírez Schwieterman PA-C Work Phone: [facility] 08-06-2022 11:25-0500 Body height 151.1 cm Vanessa Frye MD Work Phone: [facility] 08-06-2022 11:25-0500 Body weight 79.06 kg Vanessa Frye MD Work Phone: [facility] 08-06-2022 11:25-0500 Diastolic blood pressure 80 mm[Hg] Vanessa Frye MD Work Phone: [facility] 08-06-2022 11:25-0500 Systolic blood pressure 118 mm[Hg] Vanessa Frye MD Work Phone: [facility] 07-30-2022 14:18-0500 Body weight 78.47 kg Harsh Mcnair MD Work Phone: [facility] 07-30-2022 14:18-0500 Diastolic blood pressure 76 mm[Hg] Harsh Mcnair MD Work Phone: [facility] 07-30-2022 14:18-0500 Heart rate 74 /min Harsh Mcnair MD Work Phone: [facility] 07-30-2022 14:18-0500 Respiratory rate 16 /min Harsh Mcnair MD Work Phone: [facility] 07-30-2022 14:18-0500 Systolic blood pressure 124 mm[Hg] Hrash Mcnair MD Work Phone: [facility] 03-06-2022 09:39-0400 Body height 152.4 cm Ramírez Schwieterman PA-C Work Phone: [facility] 03-06-2022 09:39-0400 Body weight 77.56 kg Ramírez Schwieterman PA-C Work Phone: [facility] 03-06-2022 09:39-0400 Diastolic blood pressure 56 mm[Hg] Ramírez Schwieterman PA-C Work Phone: [facility] 03-06-2022 09:39-0400 Heart rate 89 /min Rmaírez Schwieterman PA-C Work Phone: [facility] 03-06-2022 09:39-0400 SaO2% (BldA) [Mass fraction] 95 % Ramírez Schwieterman PA-C Work Phone: [facility] 03-06-2022 09:39-0400 Systolic blood pressure 124 mm[Hg] Ramírez Schwieterman PA-C Work Phone: [facility] 03-03-2022 14:29-0400 Diastolic blood pressure 64 mm[Hg] Harsh Mcnair MD Work Phone: [facility] 03-03-2022 14:29-0400 Heart rate 84 /min Harsh Mcnair MD Work Phone: [facility] 03-03-2022 14:29-0400 Respiratory rate 16 /min Harsh Mcnair MD Work Phone: [facility] 03-03-2022 14:29-0400 Systolic blood pressure 120 mm[Hg] Harsh Mcnair MD Work Phone: [facility] 02-24-2022 14:59-0400 Heart rate 86 /min Dr. Jesus Pete Work Phone: [facility] Work Phone: 02-24-2022 14:42-0400 SaO2% (BldA) [Mass fraction] 98 % Dr. Jesus Pete Work Phone: [facility] Work Phone: 02-24-2022 14:40-0400 Body temperature 97.5 [degF] Dr. Jesus Pete Work Phone: [facility] Work Phone: 02-24-2022 14:40-0400 Diastolic blood pressure 74 mm[Hg] Dr. Jesus Pete Work Phone: [facility] Work Phone: 02-24-2022 14:40-0400 Respiratory rate 16 /min Dr. Jesus Pete Work Phone: [facility] Work Phone: 02-24-2022 14:40-0400 Systolic blood pressure 150 mm[Hg] Dr. Jesus Pete Work Phone: [facility] Work Phone: 02-23-2022 22:19-0400 Inhaled oxygen concentration 21 % Dr. Jesus Pete Work Phone: [facility] Work Phone: 02-21-2022 23:13-0400 Body height 152.[address] Jesus Pete Work Phone: [facility] Work Phone: 02-21-2022 23:13-0400 Body mass index (BMI) [Ratio] 35.2 kg/m2 Dr. Jesus Pete Work Phone: [facility] Work Phone: 02-21-2022 23:13-0400 Body weight 81.[address] Jesus Pete Work Phone: [facility] Work Phone: 02-21-2022 22:04-0400 Body temperature 98 [degF] [facility] Work Phone: 02-21-2022 22:04-0400 Diastolic blood pressure 78 mm[Hg] [facility] Work Phone: 02-21-2022 22:04-0400 Heart rate 76 /min [facility] Work Phone: 02-21-2022 22:04-0400 Respiratory rate 20 /min [facility] Work Phone: 02-21-2022 22:04-0400 SaO2% (BldA) [Mass fraction] 93 % [facility] Work Phone: 02-21-2022 22:04-0400 Systolic blood pressure 159 mm[Hg] [facility] Work Phone: 02-21-2022 17:50-0400 Body height 154.94 cm [facility] Work Phone: 02-21-2022 17:50-0400 Body mass index (BMI) [Ratio] 32.1 kg/m2 [facility] Work Phone: 02-21-2022 17:50-0400 Body weight 77.11 kg [facility] Work Phone: 01-22-2022 12:08-0400 Body weight 78.38 kg Harsh Mcnair MD Work Phone: [facility] 01-22-2022 12:08-0400 Diastolic blood pressure 82 mm[Hg] Harsh Mcnair MD Work Phone: [facility] 01-22-2022 12:08-0400 Heart rate 78 /min Harsh Mcnair MD Work Phone: [facility] 01-22-2022 12:08-0400 Respiratory rate 16 /min Harsh Mcnair MD Work Phone: [facility] 01-22-2022 12:08-0400 Systolic blood pressure 126 mm[Hg] Harsh Mcnair MD Work Phone: [facility] 09-06-2021 16:16-0500 Body temperature 98.4 [degF] [facility] Work Phone: 09-06-2021 16:16-0500 Diastolic blood pressure 70 mm[Hg] [facility] Work Phone: 09-06-2021 16:16-0500 Heart rate 78 /min [facility] Work Phone: 09-06-2021 16:16-0500 Respiratory rate 16 /min [facility] Work Phone: 09-06-2021 16:16-0500 SaO2% (BldA) [Mass fraction] 95 % [facility] Work Phone: 09-06-2021 16:16-0500 Systolic blood pressure 125 mm[Hg] [facility] Work Phone: 09-06-2021 14:58-0500 Body height 152.4 cm [facility] Work Phone: 09-06-2021 14:58-0500 Body mass index (BMI) [Ratio] 29.2 kg/m2 [facility] Work Phone: 09-06-2021 14:58-0500 Body weight 68.03 kg [facility] Work Phone: 09-04-2021 13:03-0500 Diastolic blood pressure 74 mm[Hg] [facility] Work Phone: 09-04-2021 13:03-0500 Heart rate 81 /min [facility] Work Phone: 09-04-2021 13:03-0500 Respiratory rate 21 /min [facility] Work Phone: 09-04-2021 13:03-0500 SaO2% (BldA) [Mass fraction] 97 % [facility] Work Phone: 09-04-2021 13:03-0500 Systolic blood pressure 137 mm[Hg] [facility] Work Phone: 09-04-2021 10:04-0500 Body mass index (BMI) [Ratio] 33.7 kg/m2 [facility] Work Phone: 09-04-2021 10:04-0500 Body temperature 97.9 [degF] [facility] Work Phone: 09-04-2021 10:0500 Body weight 78.47 kg [facility] Work Phone: Encounters Encounter Date Encounter Type Care Provider Facility Start: 06-20-2025 End: 06-20-2025 ambulatory Harsh Mcnair Facility:[facility] Start: 2025 ambulatory Harsh Mcnair [facility] y:[facility] Start: 2025 Registered Referred Manpreet Ivy MD -[facility] [place] Start: 04-26-2025 End: 04-26-2025 Patient encounter procedure Kathya Underwood NP-C -[facility] Work Phone: Start: 04-26-2025 End: 04-26-[address] Harsh Mcnair MD Work Phone: -[facility] Start: 04-26-2025 Registered Referred Manpreet [place] Start: 04-25-2025 End: 04-25-[address] Harsh Mcnair MD Work Phone: -[facility] Start: 04-25-2025 End: 04-25-[address] Manpreet Ivy MD -[facility] Work Phone: Start: 04-10-2025 End: 04-10-[address] Harsh Mcnair MD Work Phone: -[facility] Start: 04-10-2025 End: 04-10-2025 Patient encounter procedure Kathya Underwood NP-C -[facility] Work Phone: Start: 02-16-2025 End: 02-16-[address] Harsh Mcnair MD Work Phone: -[facility] Start: 02-16-2025 End: 02-16-2025 Patient encounter procedure Kathya MANCIAC -[facility] Work Phone: Start: 02-01-2025 End: 02-01-[address] Harsh Mcnair MD Work Phone: [facility] Work Phone: Start: 02-01-2025 End: 02-01-2025 Patient encounter procedure Kathya Underwood [employer]-C -[facility] Work Phone: Start: 01-31-2025 ambulatory Manpreet DICKINSON Fa cility:[facility] Start: 01-31-2025 Registered Referred Manpreet Ivy MD -[facility] Start: 11-02-2024 End: 11-02-[address] Harsh Mcnair MD Work Phone: [facility] Work Phone: Start: 11-02-2024 End: 11-02-2024 Departed Referred Manpreet Ivy MD -[facility] Start: 11-02-2024 End: 11-02-2024 ambulatory Manpreet DICKINSON Facility:[facility] Start: 08-02-2024 End: 08-02-2024 ambulatory Harsh Mcnair Facility:[facility] Start: 01-14-2024 Telephone encounter Harsh patel MD Work Phone: [facility] Comment on above: Forms ([employer]) Start: 11-03-2023 End: 11-03-[address] Harsh Mcnair Work Phone: [facility] Work Phone: Start: 11-03-2023 End: 11-03-[address] Harsh Mcnair Work Phone: [facility] Start: 09-24-2023 End: 09-24-2023 ambulatory RAMÍREZ LEAVITT Facility:[facility] Start: 09-16-2023 End: 09-16-[address] Harsh Mcnair Work Phone: [facility] Work Phone: Start: 09-16-2023 End: 09-16-[address] Harsh Mcnair Work Phone: [facility] Start: 09-09-2023 End: 09-09-[address] Harsh Mcnair Work Phone: [facility] Work Phone: Start: 08-04-2023 End: 08-04-[address] Harsh Mcnair Work Phone: [facility] Work Phone: Start: 08-04-2023 End: 08-04-[address] Harsh Mcnair Work Phone: [facility] Start: 06-12-2023 End: 06-12-2023 ambulatory [facility] Work Phone: Start: 06-12-2023 End: 06-12-2023 Departed Referred [facility] Start: 05-29-2023 End: 05-29-[address] Harsh Mcnair Work Phone: [facility] Work Phone: Start: 05-05-2023 Telephone encounter Harsh patel MD Work Phone: [facility] [place] Comment on above: medication quesitons Start: 05-05-2023 End: 05-05-2023 Departed Referred [facility] Start: 04-21-2023 Telephone encounter Harsh patel MD Work Phone: [facility] [place] Comment on above: Patient Update Start: 04-17-2023 End: 04-17-2023 ambulatory LAQUITA COULTER Facility:[facility] Start: 04-17-2023 End: 04-17-2023 Patient encounter procedure Laquita Coulter APRN.CNP Work Phone: [facility] [place] Comment on above: 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) (Primary Dx); Controlled type 2 diabetes mellitus without complication, without long-term current use of insulin (HCC); Balance problem; Hyperlipidemia, unspecified hyperlipidemia type; Chronic constipation; Female stress incontinence; Cervical spondylosis; Depressive disorder Start: 04-02-2023 Refill Harsh sierra MD Work Phone: [facility] [place] Comment on above: Refill Request Start: 02-05-2023 End: 02-05-2023 Telemedicine consultation with patient Marcelo Mancini APRN.ODILON Work Phone: [facility] Start: 02-05-2023 End: 02-06-2023 ambulatory RAMÍREZ LEAVITT Facility:[facility] Start: 02-05-2023 End: 02-05-2023 Patient encounter procedure Ramírez Leavitt PA-C Work Phone: [facility] Comment on above: Other hydrocephalus (HCC) (Primary Dx) 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) (Primary Dx); NPH (normal pressure hydrocephalus) (HCC); S/P DATA PROCESSING SYSTEMS CONSULTANT shunt; Major depressive disorder, recurrent, in partial remission (HCC); Female stress incontinence Start: 02-05-2023 Telephone encounter Harsh patel MD Work Phone: [facility] [place] Comment on above: Medication Problem Start: 02-05-2023 End: 02-05-2023 Subsequent hospital visit by physician Ct 2 Main Qb (I-Stat) Radiology Comment on above: Other hydrocephalus (HCC) [G91.8] Start: 02-03-2023 Refill Harsh sierra MD Work Phone: [facility] Comment on above: Refill Request Start: 01-29-2023 End: 01-29-2023 ambulatory HARSH MCNAIR Facility:[facility] Start: 01-27-2023 End: 01-27-2023 ambulatory KENNETH PARK Facility:[facility] Start: 01-21-2023 End: 01-22-2023 ambulatory HARSH MCNAIR Facility:[facility] Start: 01-15-2023 Telephone encounter Harsh patel MD Work Phone: [facility] Comment on above: Forms Refill Request Start: 01-13-2023 Refill Zaheer MILES RN.MUSIC EXECUTIVE Work Phone: [facility] Comment on above: Refill Request Start: 01-13-2023 Telephone encounter Harsh patel MD Work Phone: [facility] Comment on above: Patient Question Start: 01-07-2023 End: 01-07-2023 Patient encounter procedure Cristine Puri EDUCATIONAL INTERPRETER.MUSIC EXECUTIVE Work Phone: Urology Comment on above: Urine retention (Neena maegan Dx); Mixed stress and urge urinary incontinence; Vascular parkinsonism (HCC) Start: 12-24-2022 Telephone encounter Harsh patel MD Work Phone: [facility] [place] Comment on above: Urine problem Start: 10-21-2022 Refill Zaheer MILES RN.MUSIC EXECUTIVE Work Phone: [facility] Comment on above: Refill Request; Refi ll Request Start: 10-14-2022 Telephone encounter Harsh patel MD Work Phone: [facility] Comment on above: Constipation Start: 10-01-2022 Orders Only Marcelo merino APRN.MUSIC EXECUTIVE Work Phone: Neurology Comment on above: Female stress incont inence (Primary Dx) Start: 10-01-2022 Refill Marcelo merino APRN.MUSIC EXECUTIVE Work Phone: Neurology Comment on above: Med Change Request Start: 09-26-2022 ambulatory Marcelo merino APRN.MUSIC EXECUTIVE Work Phone: Neurology Comment on above: plan we discussed to day Start: 09-26-2022 E-mail encounter mo m caregiver Marcelo Mancini APRN.MUSIC EXECUTIVE Work Phone: [facility] Start: 09-17-2022 Telephone encounter Harsh patel MD Work Phone: [facility] [place] Comment on above: Medication Question Start: [...] procedure Harsh Mcnair MD Work Phone: [facility] [place] Comment on above: Hyperlipidemia, unsp ecified [...] [facility] Comment on above: Appointment ([facility] appointment change per email) Start: 07-22-2022 Telephone encounter Harsh patel MD Work Phone: [facility] [place] Comment on above: Vomiting & Diarrhea Start: 07-15-2022 Telephone encounter Harsh patel MD Work Phone: [facility] [place] Comment on above: Medication Problem; Appointment Start: 07-11-2022 End: 07-11-2022 Patient encounter procedure Brianne Wade PhD Work Phone: Neuropyschology Comment on above: Major neurocognitive disorder (HCC) (Primary Dx); NPH (normal pressure hydrocephalus) (HCC); Controlled type 2 diabetes mellitus without complication, without long-term current use of insulin (HCC); Depression, unspecified depression type Start: 06-07-2022 End: 06-07-2022 ambulatory [facility] [place] Work Phone: [facility] [place] Start: 05-26-2022 ambulatory Lorraine Porter APRN.CNP Work Phone: Neurology Comment on above: thank you Start: 03-06-2022 Chart abstracting Roya Ward Research Coordinator Work Phone: [facility] Start: 03-06-2022 End: 03-06-2022 Patient encounter procedure Ramírez Leavitt PA-C Work Phone: [facility] Comment on above: Other hydrocephalus (HCC) Start: 03-03-2022 End: 03-03-2022 ambulatory Collins Mendoza MD Work Phone: [facility] Comment on above: NPH (normal pressure hydrocephalus) (HCC) (Primary Dx); Dehydration; Adverse effects of medication, initial encounter Start: 03-03-2022 End: 03-03-2022 Telemedicine consultation with patient Collins Mendoza MD Work Phone: [facility] Start: 03-03-2022 End: 03-03-2022 Patient encounter procedure Harsh Mcnair MD Work Phone: [facility] [place] Comment on above: Hospital discharge f ollow-up (Primary Dx); Orthostatic hypertension; Nausea and vomiting, unspecified vomiting type; Cervical spondylosis; Neural foraminal stenosis of cervical spine; Bilateral hand numbness; Vascular parkinsonism (HCC) Start: 02-28-2022 Telephone encounter Harsh patel MD Work Phone: [facility] [place] Comment on above: Patient Update; FYI- No Action Needed Start: 02-26-2022 Orders Only David Dorsey MD Work Phone: [facility] Comment on above: S/P DATA PROCESSING SYSTEMS CONSULTANT shunt (Primar y Dx); Other hydrocephalus (HCC) PT Plan of Care Start: 02-25-2022 ambulatory Glory Brasher RN [facility] [place] Comment on above: Patient Outreach Start: 02-25-2022 Telephone encounter Harsh patel MD Work Phone: [facility] [place] Comment on above: Patient Outreach Patient Question/Tere nt Follow Up Start: 02-24-2022 Telephone encounter Harsh patel MD Work Phone: [facility] Comment on above: Home Care (Orders) Start: 02-24-2022 Non-patient / Non-visit Dr. Dung Pete Work Phone: [facility] Start: 02-23-2022 Non-patient / Non-visit Dr. Dung Pete Work Phone: [facility] Start: 02-22-2022 Non-patient / Non-visit Dr. Dung Pete Work Phone: [facility] Start: 02-21-2022 End: 02-24-2022 Evaluation and management of inpatient [facility] Start: 02-21-2022 Telephone encounter Harsh patel MD Work Phone: [facility] Comment on above: Patient Update Start: 02-19-2022 Telephone encounter Harsh patel MD Work Phone: [facility] Comment on above: Forms Start: 01-22-2022 End: 01-22-2022 Patient encounter procedure Harsh Mcnair MD Work Phone: [facility] Comment on above: Controlled type 2 di abetes mellitus without complication, without long-term current use of insulin (HCC) (Primary Dx); Hyperlipidemia, unspecified hyperlipidemia type; Depressive disorder; Essential hypertension, benign; Memory difficulties; Female stress incontinence Start: 01-06-2022 Refill Harsh sierra MD Work Phone: [facility] Comment on above: Refill Request Start: 10-09-2021 End: 10-09-2021 Subsequent hospital visit by physician Xr [facility] Work Phone: Radiology Comment on above: COVID-19 [U07.1] Start: 09-06-2021 End: 09-06-2021 [facility] Start: 09-04-2021 End: 09-04-2021 Emergency department patient visit [facility]Emergency Department Start: 09-03-2021 End: 09-03-2021 Subsequent hospital visit by physician Xr [facility] Work Phone: Radiology Comment on above: Cough [R05.9] Start: 08-28-2021 Patient encounter procedure [facility]-Outpatient Breast Imaging Procedures Date Procedure Procedure Detail Performing Clinician Start: 04-26-2025 Vitamin D, 25-hydrox y measurement Dr. Harsh Mcnair MD Work Phone: Comment on above: Vitamin D StatusDefi ciency: <20 ng/mL (50nmol/L)Insufficiency: 20-30 ng/mL (50-75 nmol/L)Sufficiency: 30-100 ng/mL (75-250 nmol/L)Toxicity: >100 ng/mL (>250 nmol/L) Start: 02-05-2023 Ct head/brain w/o contrast material Ramírez Leavitt PA-C Work Phone: Start: 01-07-2023 Urnls dip stick/tabl et rgnt auto w/o microscopy Cristine Puri EDUCATIONAL INTERPRETER.MUSIC EXECUTIVE Work Phone: Start: 06-07-2022 INFLUENZA SEASONAL QUADRIVALENT HIGH DOSE AGE 65+ Mitchell Ralph DO Work Phone: Start: 02-21-2022 Radiographic imaging of soft tissue Start: 02-21-2022 CT of head without contrast Start: 10-09-2021 Radiologic exam ches t 2 views Laquita Coulter EDUCATIONAL INTERPRETER.MUSIC EXECUTIVE Work Phone: Start: 09-04-2021 SARS-CoV-2 Antigen (Rapid) Start: 09-04-2021 Plain chest X-ray Start: 09-03-2021 Radiologic exam ches t 2 views Ladan Marina EDUCATIONAL INTERPRETER.MUSIC EXECUTIVE Work Phone: Start: 08-28-2021 Screening mammography H/O: surgery S/P DATA PROCESSING SYSTEMS CONSULTANT shunt David Dorsey MD Work Phone: Plan of Treatment Date Care Activity Detail Author Start: 04-15-[address] [facility] Start: 05-08-2024 Covid-19 Vaccine () Covid-[address] Vacc[address] () [facility] Start: 05-08-2024 Influenza vaccination C [facility] Start: 01-22-2024 Hepatitis B surface antibody level LDL CHOLESTEROL [facility] Start: 09-07-2023 Advance Directive Discussion Advance Directive Discussion [facility] Start: 07-24-2023 Hemoglobin A1c measurement HbA1C [facility] Start: 07-24-2023 Hemoglobin A1c/Hemoglobin.total in Blood HBA1C [facility] Start: 07-16-2023 Hepatitis B surface antibody level LDL CHOLESTEROL [facility] Start: 05-08-2023 Covid-19 Vaccine ( season) Covid-19 Vaccine () [facility] Start: 05-08-2023 Influenza vaccination INFLUENZA (#1) [facility] Start: 01-27-2023 End: 03-29-2023 ALBUMIN/CREAT RATIO RND UR ALBUMIN/CREAT RATIO RND UR Lab Routine Controlled type 2 diabetes mellitus without complication, without long-term current use of insulin (HCC) Expected: 01/27/2023 (Approximate), Expires: 03/29/2023 [facility] Work Phone: Comment on above: Expected: 01/27/2023 (Approximate), Expires: 03/29/2023 Start: 01-27-2023 End: 03-29-2023 CBC panel - Blood by Automated count CBC Lab Routine Essential hypertension, benign Expected: 01/27/2023 (Approximate), Expires: 03/29/2023 [facility] Work Phone: Comment on above: Expected: 01/27/2023 (Approximate), Expires: 03/29/2023 Start: 01-27-2023 End: 03-29-2023 Comprehensive metabolic 2000 panel - Serum or Plasma COMP METABOLIC PANEL Lab Routine Hyperlipidemia, unspecified hyperlipidemia type Controlled type 2 diabetes mellitus without complication, without long-term current use of insulin (HCC) Expected: 01/27/2023 (Approximate), Expires: 03/29/2023 [facility] Work Phone: Comment on above: Expected: 01/27/2023 (Approximate), Expires: 03/29/2023 Start: 01-27-2023 End: 03-29-2023 Hemoglobin A1c in Blood HGB A1C Lab Routine Controlled type 2 diabetes mellitus without complication, without long-term current use of insulin (HCC) Expected: 01/27/2023 (Approximate), Expires: 03/29/2023 [facility] Work Phone: Comment on above: Expected: 01/27/2023 (Approximate), Expires: 03/29/2023 Start: 01-27-2023 End: 03-29-2023 Lipid 1996 panel - Serum or Plasma LIPID PANEL BASIC Lab Routine Hyperlipidemia, unspecified hyperlipidemia type Expected: 01/27/2023 (Approximate), Expires: 03/29/2023 [facility] Work Phone: Comment on above: Expected: 01/27/2023 (Approximate), Expires: 03/29/2023 Start: 01-15-2023 Hepatitis B surface antibody level LDL CHOLESTEROL [facility] Start: 10-16-2022 Hemoglobin A1c/Hemoglobin.total in Blood HBA1C [facility] Start: 09-07-2022 ADVANCE DIRECTIVE DISCUSSION ADVANCE DIRECTIVE DISCUSSION [facility] Start: 07-26-2022 Hepatitis B surface antibody level LDL CHOLESTEROL [facility] Start: 07-25-2022 End: 09-24-2022 CBC panel - Blood by Automated count CBC Lab Routine Essential hypertension, benign Expected: 07/25/2022, Expires: 09/24/2022 [facility] Work Phone: Comment on above: Expected: 07/25/2022 , Expires: 09/24/2022 Start: 07-25-2022 End: 09-24-2022 Comprehensive metabolic 2000 panel - Serum or Plasma COMP METABOLIC PANEL Lab Routine Controlled type 2 diabetes mellitus without complication, without long-term current use of insulin (HCC) Hyperlipidemia, unspecified hyperlipidemia type Expected: 07/25/2022 (Approximate), Expires: 09/24/2022 [facility] Work Phone: Comment on above: Expected: 07/25/2022 (Approximate), Expires: 09/24/2022 Start: 07-25-2022 End: 09-24-2022 Hemoglobin A1c/Hemoglobin.total in Blood HGB A1C Lab Routine Controlled type 2 diabetes mellitus without complication, without long-term current use of insulin (HCC) Expected: 07/25/2022 (Approximate), Expires: 09/24/2022 [facility] Work Phone: Comment on above: Expected: 07/25/2022 (Approximate), Expires: 09/24/2022 Start: 07-25-2022 End: 09-24-2022 LIPID PANEL BASIC LIPID PANEL BASIC Lab Routine Controlled type 2 diabetes mellitus without complication, without long-term current use of insulin (HCC) Hyperlipidemia, unspecified hyperlipidemia type Expected: 07/25/2022 (Approximate), Expires: 09/24/2022 [facility] Work Phone: Comment on above: Expected: 07/25/2022 (Approximate), Expires: 09/24/2022 Start: 07-18-2022 Hemoglobin A1c/Hemoglobin.total in Blood HBA1C [facility] Start: 07-17-2022 3 comp foot exam completed DIABETIC FOOT EXAM [facility] Start: 07-17-2022 Diabetic foot examination Diabetic F oot Exam [facility] Start: 05-08-2022 Influenza vaccination INFLUENZA (#1) [facility] Start: 04-12-2022 Hepatitis B screening URINE ALBUMIN:CREATININE RATIO [facility] Start: 02-24-2022 Patient discharge [facility] Work Phone: Start: 02-24-2022 Referral to service [facility] Work Phone: Start: 02-21-2022 Following clinical p athway protocol [facility] Work Phone: Start: 02-21-2022 Ambulation without limitation [facility] Work Phone: Start: 02-21-2022 Assessment of risk o f venous thromboembolism [facility] Work Phone: Start: 02-21-2022 Continuous positive airway pressure ventilation treatment [facility] Work Phone: Start: 02-21-2022 Incentive spirometry [facility] Work Phone: Start: 02-21-2022 Insertion of cathete r into peripheral vein [facility] Work Phone: Start: 02-21-2022 Measuring intake and output [facility] Work Phone: Start: 02-21-2022 Providing care accor ding to standard [facility] Work Phone: Start: 02-21-2022 Referral to occupati onal therapist [facility] Work Phone: Start: 02-21-2022 Referral to service [facility] Work Phone: Start: 02-21-2022 [facility] Work Phone: Start: 02-21-2022 Verification routine [facility] Work Phone: Start: 02-21-2022 Admission procedure [facility] Work Phone: Start: 02-21-2022 Urinalysis complete panel - Urine [facility] Work Phone: Start: 02-11-2022 Glaucoma screening Dilated Retinal E xam [facility] Start: 02-11-2022 Hepatitis C antibody , confirmatory test DILATED RETINAL EXAM [facility] Start: 01-23-2022 Hemoglobin A1c/Hemoglobin.total in Blood HBA1C [facility] Start: 11-17-2021 COVID-19 VACCINE (4 - Booster for Moderna series) COVID-19 VACCINE (4 - Booster for Moderna series) [facility] Start: 09-14-2021 COVID-19 VACCINE (5 - Booster for Moderna series) COVID-19 VACCINE (5 - Booster for Moderna series) [facility] Start: 09-14-2021 COVID-19 VACCINE (5 - Moderna series) COVID-19 VACCINE (5 - Moderna series) [facility] Start: 09-07-2021 ADVANCE DIRECTIVE DISCUSSION ADVANCE DIRECTIVE DISCUSSION [facility] Start: 06-22-2020 FECAL OCCULT BLOOD FECAL OCCULT BLOO D [facility] Start: 2015 RSV Vaccine (1 - 1-d ose 75+ series) RSV Vaccine (1 - 1-dose 75+ series) [facility] Start: 2000 RSV Vaccine (1 - 1-d ose 60+ series) RSV Vaccine (1 - 1-dose 60+ series) [facility] Start: 1958 Anxiety Screening Anxiety Screening [facility] End: 03-06-[address]24 CT BRAIN WO IVCON CT BRAIN WO IVCON Radiology Routine Other hydrocephalus (HCC) 1 Occurrences starting 02/05/2023 until 03/06/2024 [facility] Work Phone: Comment on above: 1 Occurrences starti ng 02/05/2023 until 03/06/2024 End: 03-28-2023 Ct head/brain w/o contrast material CT BRAIN WO IVCON Radiology Routine Other hydrocephalus (HCC) S/P DATA PROCESSING SYSTEMS CONSULTANT shunt 1 Occurrences starting 02/26/2022 until 03/28/2023 [facility] Work Phone: Comment on above: 1 Occurrences starti ng 02/26/2022 until 03/28/2023 End: 04-05-2023 Ct head/brain w/o contrast material CT BRAIN WO IVCON Radiology Routine Other hydrocephalus (HCC) 1 Occurrences starting 03/06/2022 until 04/05/2023 [facility] Work Phone: Comment on above: 1 Occurrences starti ng 03/06/2022 until 04/05/2023 Cystourethroscopy CYSTO.PANENDO Procedures Routine Urine retention 1 Occurrences starting 01/07/2023 [facility] Work Phone: Comment on above: 1 Occurrences starti ng 01/07/2023 End: 09-05-2023 DXA-AXIAL SKELETON DXA-AXIAL SKELETON Radiology Routine Encounter for screening for osteoporosis Unspecified menopausal and perimenopausal disorder 1 Occurrences starting 08/06/2022 until 09/05/2023 [facility] Work Phone: Comment on above: 1 Occurrences starti ng 08/06/2022 until 09/05/2023 Patient Education Coronavirus Di sease 2019 (COVID-19): Caring for Yourself or Others ED - COVID Monoclonal AB Infusion ... [facility] Work Phone: Patient referral [facility] Work Phone: End: 02-06-2024 US KIDNEY/BLADDER US KIDNEY/BLADDER Radiology Routine Mixed stress and urge urinary incontinence Urine retention 1 Occurrences starting 01/07/2023 until 02/06/2024 [facility] Work Phone: Comment on above: 1 Occurrences starti ng 01/07/2023 until 02/06/2024 [facility] Immunizations Immunization Date Immunization Notes Care Provider Fa [facility] 06-07-2022 influenza, high-dose , quadrivalent vaccine (FLUZONE HIGH DOSE QUADRIVALENT) Immunization [place] Work Phone: [facility] Work Phone: 06-07-2022 influenza virus vaccine, unspecified formulation Harsh Mcnair MD Work Phone: [facility] 07-20-2021 COVID-19 vaccine, ag e 12+ yr (PFIZER-[facility]TSpire - [facility]) Harsh Mcnair MD Work Phone: [facility] 05-11-2021 influenza, high dose seasonal, preservative-free Harsh Mcnair MD Work Phone: [facility] 12-30-2020 zoster vaccine recombinant Harsh Mcnair MD Work Phone: [facility] Work Phone: 11-05-2020 Covid (Pfizer) Dr. Jesus Longo Work Phone: [facility] 07-24-2020 zoster vaccine recombinant Harsh Mcnair MD Work Phone: [facility] Work Phone: 05-19-2020 influenza, high-dose , quadrivalent vaccine (FLUZONE HIGH DOSE QUADRIVALENT) Harsh Mcnair MD Work Phone: [facility] 05-27-2019 influenza, high dose seasonal, preservative-free Harsh Mcnair MD Work Phone: [facility] Work Phone: 04-15-2019 tetanus toxoid, redu denis diphtheria toxoid, and acellular pertussis vaccine, adsorbed Harsh Mcnair MD Work Phone: [facility] 05-14-2018 influenza, high dose seasonal, preservative-free Harsh Mcnair MD Work Phone: [facility] Work Phone: 06-07-2017 influenza, high dose seasonal, preservative-free Harsh Mcnair MD Work Phone: [facility] 06-17-2016 influenza, high dose seasonal, preservative-free Harsh Mcnair MD Work Phone: [facility] Work Phone: 06-13-2015 influenza, high dose seasonal, preservative-free Harsh Mcnair MD Work Phone: [facility] 09-27-2014 pneumococcal conjuga te vaccine, 13 valent Harsh Mcnair MD Work Phone: [facility] Work Phone: 06-09-2014 influenza, high dose seasonal, preservative-free Harsh Mcnair MD Work Phone: [facility] 06-22-2012 zoster vaccine, live Harsh rodríguez MD Work Phone: [facility] 06-02-2012 influenza virus vaccine, unspecified formulation Harsh Mcnair MD Work Phone: [facility] 08-04-2011 tetanus toxoid, redu denis diphtheria toxoid, and acellular pertussis vaccine, adsorbed Harsh Mcnair MD Work Phone: [facility] 06-24-2011 influenza virus vaccine, unspecified formulation Harsh Mcnair MD Work Phone: [facility] Work Phone: 08-05-2006 pneumococcal polysaccharide vaccine, 23 valent Harsh Mcnair MD Work Phone: [facility] 07-08-2006 influenza virus vaccine, unspecified formulation Harsh Mcnair MD Work Phone: [facility] Work Phone: 07-02-2005 pneumococcal polysaccharide vaccine, 23 valent Harsh Mcnair MD Work Phone: [facility] Work Phone: 08-21-1998 diphtheria and tetan us toxoids, adsorbed for pediatric use Harsh Mcnair MD Work Phone: [facility] 08-15-1998 pneumococcal polysaccharide vaccine, 23 valent Harsh Mcnair MD Work Phone: [facility] 04-19-1960 trivalent poliovirus vaccine, live, oral Harsh Mcnair MD Work Phone: [facility] Payers Date Payer Category Payer Self-pay [id number] 2022 Private Health Insurance [id number] 2020 Private Health Insurance [facility] [id number] 2020-Present [phone] [address] [place] [address] Indemnity [id number] 2020 Private Health Insurance [id number] 2005 Medicare [id number] 2005 Medicare MEDICARE MEDICAR E A AND B [id number] 2005-Present [phone] [address] [address] [place] [address] Medicare [id number] 2005 Medicare MEDICARE MEDICAR E A AND B [id number] 2005-Present [phone] [address] [address] [place] [address] Medicare [id number] Unknown [id number] Unknown [id number] Unknown [id number] Unknown [id number] Unknown [id number] Unknown [id number] Unknown [id number] Unknown [id number] Unknown [id number] Unknown [id number] Unknown [id number] Social History Date Type Detail Facility Start: 09-04-2021 End: 07-22-2022 Tobacco smoking status NYIS Unknown if ever smoked [facility] Start: 1940 Sex Assigned At Female [facility] Start: 05-21-2022 End: 07-22-2022 Tobacco smoking status NHIS Never smoked tobacco [facility] Start: 09-03-2021 End: 10-09-2021 Alcohol intake Current drinker of alcohol (finding) [facility] Start: 07-04-2020 End: 07-30-2022 History SDOH Financial 5 [facility] Start: 07-04-2020 End: 07-30-2022 History SDOH Food Worry 1 [facility] Start: 07-04-2020 End: 07-30-2022 History SDOH Transport Med 2 [facility] Start: 1940 Sex Assigned At Not on file [facility] Start: 09-09-2021 End: 08-06-2022 Exposure to SARS-CoV-2 (event) Not sure [facility] Start: 03-02-2022 History SDOH Alcohol Std Drinks 98 [facility] Start: 03-02-2022 History SDOH Social Connections Worship 3 [facility] Start: 03-02-2022 End: 07-30-2022 History SDOH Social Connections Living 4 [facility] Start: 03-02-2022 End: 07-30-2022 History SDOH Physical Activity DPW 0 [facility] Start: 05-21-2022 Tobacco use and exposure Smoke less tobacco non-user [facility] Start: 08-13-2020 End: 07-30-2022 [facility] Start: 08-13-2020 End: 07-30-2022 Social connection and isolation panel [facility] Start: 08-04-2021 End: 09-03-2021 Do you belong to any clubs or organizations such as advent groups, unions, fraternal or athletic groups, or school groups? Yes [facility] Are you now , , , , never or living with a partner? [facility] How often to you hav e a drink containing alcohol? Never [facility] How many standard dr inks containing alcohol do you have on a typical day? Patient does not drink [facility] Do you feel stress - tense, restless, nervous, or anxious, or unable to sleep at night because your mind is troubled all the time - these days [OSQ] Only a little [facility] (I/We) worried wheth er (my/our) food would run out before (I/we) got money to buy more. Never true [facility] In the past 12 month s, was there a time when you were not able to pay the mortgage or rent on time? No [facility] Start: 12-08-2024 Sex Female (finding) [place] [facility] Medical Equipment Procedure Code Equipment Code Equipment Origin al Text Equipment Identifier Dates Catheter Bactise al 14cm External Drainage Csf Sterile Latex Free - [id number] Start: 04-13-2020 Catheter Bactise al 120cm External Drainage Csf Sterile Latex Free - [id number] Start: 04-13-2020 [place] Anne Rickham 6mm Plastic Base 15cm Shunt Ventricular Catheter - [id number] Start: 04-13-2020 Catheter Edm Bar ium Silicone 80cm Drainage Open Tip Impregnate Sterile - [id number] Start: 02-14-2020 Programmable Awa ve Inline Small Valve W/Siphonguard [id number] Start: 04-13-2020 [id number], [id number], [id number], [id number] Start: 09-09-2018 End: 10-06-2022 Comment on above: [...] Assessment Result Facility 02-24-2022 Functional status Ambulates [facility] Work Phone: Mental Status Date Assessment Result Facility 02-24-2022 Cognitive function Voice/Name [facility] Work Phone: 02-21-2022 Cognitive function Level Of Cons ciousness Awake;Alert;Appropriate;Follow s Commands [facility] Work Phone: 09-06-2021 Cognitive function Voice/Name;To uch/Shaking;Light Pain;Deep Pain [facility] Work Phone: 09-04-2021 Cognitive function Level Of Cons ciousness Awake;Alert;Appropriate;Follow s Commands [facility] Work Phone: Clinical Notes 04-13-2020 to 01-15-2024 Telephone Encounter - Shahrzad Anderson MA - 01/15/2024 2:33 PM EDTTelephone Encounter - Shahrzad Anderson MA - 01/15/2024 2:33 PM EDTTelephone Encounter - Afsaneh Cruz MA - 01/14/2024 3:08 PM EDT Note Date & Type Note Facility 01-15-2024 Telephone encounter Note Form faxed to [facility] office. PCP updated. Shahrzad Anderson MA [facility] 01-15-2024 Miscellaneous Notes Form faxed to [facility] office. PCP updated. Shahrzad Anderson MA OK to send to new PCP and change PCP Harsh Mcnair MD Pt is currently receiving prescription from Dr. Ivy as of September 2023 and is under her care. She is currently at [facility]. The documents are requesting an OV note [...] Completed form needs to be faxed to [facility] at [phone]. Route to [place] when form completed for processing documented in this encounter [facility] 01-15-2024 Telephone encounter Note OK to send to new PCP and change PCP Harsh Mcnair MD [facility] 01-14-2024 Telephone encounter Note Pt is currently receiving prescription from Dr. Ivy as of September 2023 and is under her care. She is currently at [facility]. The documents are requesting an OV note in the past year about CPAP, which we do not have listed in our visits. Do you still want to complete form or should we have new PCP complete. Please review and advise. Can we updated PCP? Afsaneh Cruz MA [facility] 01-14-2024 Telephone encounter Note Type of letter/form/fax request - Medical Necessity-PAP supplies Form received from fax on 1 floor and placed on MD desk (Dr. Mcnair) for completion. Completed form needs to be faxed to [facility] at [phone]. Route to [place] when form completed for processing [facility] 09-24-2023 Note HNO ID: [id number] Author: RAMÍREZ LEAVITT PA-C Service: ? Author Type: Physician Vehicle Assembler Type: Progress Notes Filed: 09/25/2023 08:21 Note Text: CC: DATA PROCESSING SYSTEMS CONSULTANT shunt f/u HPI: Mrs Mike comes to clinic today for surgical f/u. 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 [...] a history of NPH. 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 [...] reviewed which shows stable enlarged ventricle system, DATA PROCESSING SYSTEMS CONSULTANT shunt catheter in place and no acute abnormalities. We discussed benefits and risks of DATA PROCESSING SYSTEMS CONSULTANT shunt adjustment. After discussion, Ramona and her daughter would like to continue to work with PT to try and become more active without adjusting shunt. Plan for follow up in 6-[address] brain. Plan: Shunt information Shunt type: Certas Initial settin New settin Ramírez Leavitt PA-C [facility] 09-24-2023 Note HNO ID: [id number] Author: ZHANNA CARRERA RT(R) Service: ? Author Type: Computer Assistant Type: Progress Notes Filed: 09/24/2023 13:53 Note [...] Luis Fernando(R) September 24, 2023 1:49 PM [facility] 05-06-2023 Miscellaneous Notes Spoke with pt's daughter and information listed below given. Pt's daughter verbalizes understanding. Bj Santana LPN Message left for Roselyn to call back. Shahrzad Anderson Ma The ASA was probably to reduce the risk of DC; it would be OK to stop this now It would be OK to take 1000 mg tylenol rather than the mobic Harsh Mcnair MD Daughter calling to let you know pt was admitted into [facility] at [facility] yesterday 05-04-23. Daughter has 2 questions. 1)[facility] would like to know why pt is taking baby aspirin daily. 2) [facility] asking if pt would be able to take 1000 mg of extra strength Tylenol instead of Meloxicam due to possible bleeding. Please advise daughter on both issues above. Bj Santana LPN documented in this encounter [facility] 04-21-2023 Miscellaneous Notes Talia with [facility] calls to report that pt is looking at moving into their facility for Assisted Living. Talia requested face sheet, H&P, OV notes. Faxed to: [phone] as reqeusted. Lynette Adamson LPN documented in this encounter [facility] 04-17-2023 Note HNO ID: [id number] Author: Laquita Coulter APRN.MUSIC EXECUTIVE Service: ? Author Type: Nurse Practitioner Type: Progress Notes Filed: 04/17/2023 3:34 PM Note Text: This is a 82 year old female who presents today with: Patient presents with: Follow Up: admission to [facility]. HISTORY OF PRESENT ILLNESS: Ramona Mike is a 82 year old female. Patient presents with: Follow Up: admission to [facility]. Here in the office for follow-up prior to admission to long-term care facility ( [facility]), Daughter present for this visit. [...] Dementia: Following with brain health, Marcelo Andrade MUSIC EXECUTIVE. Taking Aricept 5 mg daily. Shunt in [...] [facility] 04-17-2023 Instructions Laquita Coulter APRN.MUSIC EXECUTIVE - 04/17/2023 1:45 PM EDT Contact the [...] sooner as needed. documented in this encounter [facility] 04-17-2023 History of Present illness Narrative This is a 82 year old female who presents today with: Patient presents with: Follow Up: admission to [facility]. HISTORY OF PRESENT ILLNESS: Ramona Mike is a 82 year old female. Patient presents with: Follow Up: admission to [facility]. Here in the office for follow-up prior to admission to long-term care facility ( [facility]), Daughter present for this visit. [...] APRN.ODILON This note was partially generated using Scriptick voice recognition system. Note was reviewed for accuracy. There may be minor misspellings or grammar miscues with Scriptick voice recognition. documented in this encounter [facility] 04-03-2023 Miscellaneous Notes The following approved [...] advise. Sofie Almodovar documented in this encounter [facility] 02-06-2023 Miscellaneous Notes This info was relayed to pts daughter. OK fro Tradjenta as ordered; it appears this is preferred by her insurance Harsh Mcnair MD Insurance has reviewed this and it has been denied. Response is. Date: 02/06/2023 Harsh [address] [place] [address] RE: Denial of request for coverage of [...] Roselyn is calling Harsh Mcnair MD today. [facility] pharmacy advised daughter authorization is needed before they can fill SITagliptin phosphate (JANUVIA) 100 mg tablet A new prescription was sent on 01/29 Please contact pharmacy for clarification and return daughters call at [phone] documented in this encounter [facility] 02-05-2023 Note HNO ID: [id number] Author: Marcelo Mancini APRN.MUSIC EXECUTIVE Service: ? Author Type: Nurse Practitioner Type: Progress Notes Filed: 02/05/2023 5:40 PM Note Text: Ramona Mike [id number] [address] [facility] [address] February 05, 2023 [facility] VIRTUAL FOLLOW-UP NOTE This visit was conducted using audio + video elements. I have communicated my name and active licensure. The patient's identity and physical location were verified at the time of this visit. Either the patient or their legal sales and marketing representative has been informed of the risks [...] days ago They have looked into the [employer] system but Roselyn feels it may be [...] No Social History reviewed by Marcelo Mancini APRN.ODILON PATIENT-ENTERED DATA Patient-Reported 05/21/2022 Where are you currently living? Home / Private residence Are you using any community resources to help care for yourself? supervisor edging Has your caregiver accompanied you today? Yes [...] - 02/05/2023 5:38 PM EDT Give the linkedü ([employer]) more time to work later in the [...] recheck on things documented in this encounter [facility] 02-05-2023 History of Present illness Narrative Ramona Mike 1940 [id number] [place] [address] February 05, 2023 [facility] VIRTUAL FOLLOW-UP NOTE This visit was conducted using audio + video elements. I have communicated my name and active licensure. The patient's identity and physical location were verified at the time of this visit. Either the patient or their legal sales and marketing representative has been informed of the risks and benefits of -- and alternatives to -- treatment through a remote evaluation and consents to proceed with the evaluation remotely. Accompanied by: shadia Roselyn ABIGAIL Ramona Mike is a pleasant 82 year [...] days ago They have looked into the [employer] system but Roselyn feels it may be [...] No Social History reviewed by Marcelo Mancini APRN.ODILON PATIENT-ENTERED DATA Patient-Reported 05/21/2022 Where are you currently living? Home / Private residence Are you using any community resources to help care for yourself? supervisor edging Has your caregiver accompanied you today? Yes [...] visit. 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 Marcelo Mancini, MSN, HIGH SCHOOL CHEMISTRY TEACHER-C, CNRN CC: 1. Harsh Mcnair MD, (fax) [phone] documented in this encounter [facility] 02-05-2023 Note HNO ID: [id number] Author: Ramírez Leavitt PA-C Service: ? Author Type: Physician Vehicle Assembler Type: Progress Notes Filed: 02/05/2023 3:15 PM Note Text: CC: DATA PROCESSING SYSTEMS CONSULTANT shunt f/u HPI: Mrs Mike comes to clinic today for surgical f/u. 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 [...] with a history of NPH. She had DATA PROCESSING SYSTEMS CONSULTANT shunt implantation on 04/13/20 with Certas valve. [...] reviewed which shows stable enlarged ventricle system, DATA PROCESSING SYSTEMS CONSULTANT shunt catheter in place and no acute abnormalities. Follow up in 6-[address] brain Plan: Shunt information Shunt type: Certas Initial settin New settin Ramírez Leavitt PA-C [facility] 02-05-2023 Note HNO ID: [id number] Author: Shaista Brown, RT(R) Service: Radiology Author Type: Technologist Type: Progress [...] PERIPHERAL IV DATA: Not applicable SIGNED BY: Shaista Brown RT(R) February 05, 2023 1:45 PM [facility] 02-05-2023 History of Present illness Narrative CC: DATA PROCESSING SYSTEMS CONSULTANT shunt f/u HPI: Mrs Mike comes to clinic today for surgical f/u. 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 [...] with a history of NPH. She had DATA PROCESSING SYSTEMS CONSULTANT shunt implantation on 04/13/20 with Certas valve. [...] reviewed which shows stable enlarged ventricle system, DATA PROCESSING SYSTEMS CONSULTANT shunt catheter in place and no acute abnormalities. Follow up in 6-[address] brain Plan: Shunt information Shunt type: Certas Initial settin New settin Ramírez Leavitt PA-C documented in this encounter [facility] 02-05-2023 History of Present illness Narrative [...] 2023 1:45 PM documented in this encounter [facility] 02-03-2023 Miscellaneous Notes Patient has been identified by name and date of : Yes Requested Prescriptions Pending Prescriptions Disp Refills SITagliptin phosphate (JANUVIA) 100 mg tablet 90 tablet 3 Sig: Take 1 tablet by mouth once daily. RX INSTRUCTIONS: Patient aware RX will be sent to pharmacy. No need to notify patient. Bonnie Santana Pss documented in this encounter [facility] 01-29-2023 Note HNO ID: [id number] Author: Harsh Mcnair MD Service: ? Author [...] she will take Miralax. Follows with Urologist Cirstine Puri for urine retention. Had renal ultrasound and cysto done recently. No longer using Ditropan and started on Gemtesa 75 mg daily. Dementia: Following with [facility] Marcelo Mancini CNP. Is on Aricept 5 mg once daily. [...] shoulder, but right worse. Uses Tylenol prn. Depression/HOGN: Is doing well with Zoloft 100 mg, [...] [facility] 01-27-2023 Note HNO ID: [id number] Author: Kenneth Park Jr., MD Service: ? Author Type: Physician Type: Procedures Filed: 01/27/2023 11:07 AM Note Text: CYSTOSCOPY PROCEDURE NOTE: Ramona Mike is a 82 year old female who presents with urge incontinence for a cystoscopy. Pt ID verified with patient: Yes Fire risk assessment done Procedure verified with patient: Yes Procedure confirmed with physician and product support technician: Yes UNIVERSAL PROTOCOL / SAFETY CHECKLIST Procedure [...] advise. ATILIO Looney documented in this encounter [facility] 01-15-2023 Miscellaneous Notes Paperwork completed and faxed back to information below. Afsaneh Cruz Ma Type of form: New Rx for CPAP supplies from [facility]. CMN for DME Form received via fax When form is completed, Fax form to [phone] Form has been forwarded to Physician Desk: Dr. Xu Cruz Ma documented in this encounter [facility] 01-13-2023 Miscellaneous Notes Call to daughterRoselyn [...] Kaelyn Ochoa LPN documented in this encounter [facility] 01-13-2023 Miscellaneous Notes [facility] pharmacy notified to remove Ditropan from pt med list. Shahrzad Anderson Ma She was taken off Ditropan due to memory changes; she is now on Gemtesa instead Harsh Mcnair MD documented in this encounter [facility] 01-07-2023 Instructions Cristine Puri APRN.MUSIC EXECUTIVE - 01/07/2023 9:18 AM EDT Images from [...] patient s medical history, current prescription and svwv-rdz-jfixkrh medications, and allergies to medications, including anesthetics. [...] her bladder before the procedure begins. The owmm-di-alsr process may be similar to this: The [...] urethral opening to relieve discomfort Take an vdul-wst-uurvshi pain medicine If necessary, the urologist may [...] urine Fever Severe discomfort References: NIH: National [place] of Diabetes and Digestive and Kidney Diseases. Cystoscopy and Ureteroscopy Accessed 03/05/2017. Kimberly Espinoza, Lyndon Abbott, Ravi H, Selvin RIVERO. The History of Cystoscopy in Urology, Internet Journal of Urology. 14,1 (2014) [employer] Accessed 03/05/2017. Urology [facility]. What is Cystoscopy? Accessed 03/05/2017. Copyright 8886-6635 [facility]. All rights reserved. documented in this encounter [facility] 01-07-2023 History of Present illness Narrative [facility] [...] fluid intake: water diet caffeine free pop AUTOMOTIVE INTERNET SALES MANAGER: Gynec: G 3, P 3 Vaginal delivery:Yes [...] breath CARDIOVASCULAR: Negative for chest pain or DC Taking a blood thinner? NO GI: Positive [...] ICD9: 332.0, ICD10: G21.4 -noted Cristine Puri APRN.MUSIC EXECUTIVE documented in this encounter [facility] 12-25-2022 Miscellaneous Notes Pt notified. Transferred to [facility] to schedule appt. Shahrzad Anderson Ma I [...] Bj Santana LPN documented in this encounter [facility] 10-27-2022 Miscellaneous Notes The following approved medication requests have been transmitted electronically. Requested Prescriptions Signed Prescriptions Disp Refills donepezil (ARICEPT) 5 mg tablet 90 tablet 1 Sig: Take 1 tablet by mouth daily with breakfast. Marcelo Mancini APRN.CNP documented in this encounter [facility] 10-22-2022 Miscellaneous Notes Patient daughter Roselyn [...] Bj Santana LPN documented in this encounter [facility] 10-14-2022 Miscellaneous Notes Roselyn notified and [...] advise shadia Dempsey documented in this encounter [facility] 10-03-2022 Miscellaneous Notes Mirabegron not covered by patient's insurance (per pharmacy) - request from pharmacy to order vibegron The following approved medication requests have been transmitted electronically. Requested Prescriptions Signed Prescriptions Disp Refills vibegron (GEMTESA) 75 mg tablet 90 tablet 1 Sig: Take 1 tablet by mouth once daily. Authorizing Provider: MARCELO MANCINI APRN.CNP documented in this encounter [facility] 10-01-2022 History of Present illness Narrative Per discussion w/ Dr. Casper- KWABENA to discontinue oxybutynin and switch to mirabegron Orders placed Will ensure MC message is read- otherwise will reach out via phone to convey this change Marcelo Mancini, MSN, HIGH SCHOOL CHEMISTRY TEACHER-C, CNRN documented in this encounter [facility] 09-18-2022 Miscellaneous Notes Daughter called and [...] Please advise daughter. documented in this encounter [facility] 08-06-2022 History of Present illness Narrative Jewelry Casting Model Maker offered: Patient declines. Ramona is a 82 [...] L3 SAB0 IAB0 Ectopic0 Multiple0 Live Births0 Drapery Supervisor History LMP: Postmenopausal Age at Menarche: Age at First : Age at Menopause: Drapery Supervisor History Comments: Sexual Activity: Not Currently; Male [...] external genitalia normal, normal Bartholin's glands, urethra, [place]'s glands, no vulvar lesions, no cervical lesions, [...] Vanessa Watson MD documented in this encounter [facility] 07-30-2022 History of Present illness Narrative [...] mobic 7.5 mg daily. Pt presented to [facility] ER on 07/23/22 with c/o nausea, [...] DX W/COLLJ SPEC WHEN PFRMD 10-18-03 Colonoscopy-per HM repeat in LIG/TRNSXJ FLP TUBE ABDL/VAG APPR [...] by mouth with dinner. blood sugar diagnostic ([employer] ULTRA TEST) test strip Test blood sugar [...] Past Histories independently gathered by the clinical product support technician and the remaining scribed note accurately describes [...] Shahrzad Anderson Ma documented in this encounter [facility] 07-30-2022 Miscellaneous Notes LVM about appointment change per email documented in this encounter [facility] 07-22-2022 Miscellaneous Notes Noted I agree [...] Kaelyn Ochoa LPN documented in this encounter [facility] 07-15-2022 Miscellaneous Notes Pt daughter Roselyn notified. Shahrzad Anderson Ma Noted; I will review her meds at her appt next week and decide what would be best. The after visit summary should be available on [employer] Harsh Mcnair MD Pts daughter called in [...] summary could be sent through her mother's [employer] so that she could see what was gone over. Please call and advise. documented in this encounter [facility] 07-11-2022 History of Present illness Narrative PATIENT NAME: Ramona Mike DATE OF SERVICE: July 11, 2022 [facility] NEUROPSYCHOLOGICAL EVALUATION EDUCATION: 13 OCCUPATION: [employer] (retired) HANDEDNESS: Right REFERRING: KYLAH Durán This neuropsychological assessment is part of a multidisciplinary evaluation conducted in the [facility]. The assessment consisted of a brief interview [...] female with a history of hydrocephalus (s/p DATA PROCESSING SYSTEMS CONSULTANT shunt April 2020), hypertension, hyperlipidemia, and diabetes [...] with bathing. Independent with dressing and toileting. Web Sizer: Reliant on daughters and caregivers . Appointments: Reliant on her daughter . Medications: Reliant on her daughters and caregivers . Finances: Reliant on her daughter . They noticed math errors. Driving: Discontinued last summer. MEDICAL HISTORY: See records for full review. Relevant diagnoses include hydrocephalus (s/p DATA PROCESSING SYSTEMS CONSULTANT shunt April 2020), hypertension, hyperlipidemia, and diabetes. [...] at outside hospital (02/21/22): "Interval right frontal DATA PROCESSING SYSTEMS CONSULTANT shunt catheter. There is no other significant interval change when compared to the previous examination." Head CT (08/23/2020): "Stable positioning of a right frontal approach DATA PROCESSING SYSTEMS CONSULTANT shunt catheter with slight improvement in moderate [...] by mouth with dinner. blood sugar diagnostic ([employer] ULTRA TEST) test strip Test blood sugar [...] years ago. 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 Family: The patient was 5 years ago. She has 3 children. Living situation: Resides in a house with 24/7 caregiver support. BEHAVIORAL OBSERVATIONS: The patient was accompanied by her daughter (Roselyn). She was oriented to most aspects of person, place, and time though initially stated "[place]" as the current president and later stated [...] female with a history of hydrocephalus (s/p DATA PROCESSING SYSTEMS CONSULTANT shunt April 2020), hypertension, hyperlipidemia, and diabetes who presents with a 1-2 year history of cognitive concerns with a declining course. She previously underwent neuropsychological evaluation with Mona Gonzalez, on 02/14/2020, which revealed weaknesses in working [...] Ph.D. Staff Neuropsychologist Time testing and scoring (account services coordinator): 2.5 hours Time completing additional tests, analyzing, interpreting and incorporating other available medical information, clinical data review, and report writing (by neuropsychologist): 3 hours Tests Administered: [place] Naming Test Brief Visuospatial Memory Test-Revised Controlled Oral Word Association Test DKEFS Color-Word Interference Geriatric Depression Scale Reed Verbal Learning Test Judgment of Line Orientation- Short Form Test of Practical Judgment Colton Making Test WAIS-IV subtests: Coding, Digit Span, Matrix Reasoning, Similarities WMS-IV Logical Memory WRAT-IV Reading documented in this encounter [facility] 03-06-2022 History of Present illness Narrative Summary: [id number] [facility] follow up IRB#: [id number] Regional Property Manager: Dr. David Dorsey MD Study Name: [facility] Registry: Characterizing Patient Populations in the Adult Hydrocephalus Clinical Research Network Study Visit Conducted by: Roya Ward Date: March 06, 2022 Patient Patient seen for follow up visit in office on 03/06/2022. Informed consent and eligibility reviewed. Signed copy of consent provided to patient. [place] Cognitive Assessment, symbol digit modalities test, BDI-II, [...] Ward, Research Coordinator documented in this encounter [facility] 03-06-2022 History of Present illness Narrative CC: DATA PROCESSING SYSTEMS CONSULTANT shunt f/u HPI: Mrs Mike comes to clinic today for surgical f/u. 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 [...] with a history of NPH. She had DATA PROCESSING SYSTEMS CONSULTANT shunt implantation on 04/13/20 with Certas valve. [...] no abnormality with stable enlarged ventricles and DATA PROCESSING SYSTEMS CONSULTANT shunt in place. She was treated for dehydration with improvement of symptoms. Mrs Mike is following with Dr Mendoza who is weaning Sinemet in hopes to also improve dizziness. Plan for follow up in 6-[address] brain. Weaning off sinemet due to dizziness Plan: Shunt information Shunt type: Certas Initial settin New settin Ramírez Leavitt PA-C documented in this encounter [facility] 03-03-2022 History of Present illness Narrative March 03, 2022 Collins Mendoza MD [facility] [address] [place] [address] Harsh Mcnair [address] [place] [address] VIRTUAL VISIT Ramona Mike : 1940 Interval History: Ramona Mike is a 81 year old woman with NPH, s/p DATA PROCESSING SYSTEMS CONSULTANT shunt placed in April 2020, being seen [...] are independent. It was therefore never discussed ypay-qz-svwe whether the Sinemet was still necessary. Allergies: [...] by mouth with dinner. blood sugar diagnostic (PharmlyTOUCH ULTRA TEST) test strip Test blood sugar [...] which included preparing to see the patient, rklq-xf-mzwo patient care, completing clinical documentation, obtaining and/or reviewing separately obtained history, performing a medically appropriate examination, counseling and educating the patient/family/caregiver and ordering medications, tests, or procedures. Thank you for including me in the care of this interesting patient. Collins Mendoza MD Staff Neurologist [facility] Cc: documented in this encounter [facility] 03-03-2022 History of Present illness Narrative [...] day TCM. Pt here today with her daughter, Roselyn for a [facility] ED discharge on 02/24/22. Daughter states [...] the office and pt was referred to [facility] ED. Pt admitted. Pt has a VV with Neuro this afternoon and , 03/06 a shunt f/u to make sure this is working properly. Pt did have a series of imaging done while at the hospital. They were unable to perform an MRI due to the shunt. Since d/c, daughterRoselyn states it was a little rough when [...] in the am and 0.5 tab pm. [facility] Hospitalist was uncertain why she was [...] had BP checked since she's been home. [facility] PT came out last week as [...] tabs po bid. SUMMARY: -Pt discharged from [facility] on 02/24/22 -Admitted for: lightheadedness, dehydration, [...] who presented to the emergency department at [facility] on 02/21/2022 for dizziness and vomiting. She [...] head was performed and shows interval right DATA PROCESSING SYSTEMS CONSULTANT shunt placement with no other interval change or acute findings. This was compared from a CT on 10/12/2019. A shuntogram was performed that showed ventriculoperitoneal shunt placement with apparent continuity of the shunt tube and no abnormalities. Her EKG ws unremarkable. Dr. Pete in the emergency department discussed the case with neurosurgery at [facility] (Dr. Simpson) who accepted the patient [...] Past Histories independently gathered by the clinical product support technician and the remaining scribed note accurately describes my personal service to the patient. Harsh Mcnair MD The documentation for this note was completed by Afsaneh Cruz Ma acting as scribe for Harsh Mcnair MD. March 03, 2022 2:54 PM. Afsaneh Cruz Ma documented in this encounter [facility] 02-28-2022 Miscellaneous Notes Noted Monitor Harsh Mcnair MD HUBER GALVAN from [facility] calls to report that patient rolled out of bed around 7 am this morning. No injuries noted. Vital signs are within normal limits for patient. Lety Simpson RN documented in this encounter [facility] 02-26-2022 Miscellaneous Notes Noted and agree with plan Harsh Mcnair MD Marty , a PT with [facility] calling to state patient's PT plan of care: Patient will be seen 2 times per week for 3 weeks for functional mobility training. Patient declined OT. No call back needed if provider agreeable. Thank you. documented in this encounter [facility] 02-26-2022 Miscellaneous Notes Spoke with patient's [...] to report pt discharged last evening from [facility] and it was recommended pt contact Dr. Dorsey to schedule shunt check/follow up - [phone]. Should pt continue to take Carbidopa Levodopa 25/100 mg since shunt procedure [place] in [address] Dorsey? documented in this encounter [facility] 02-25-2022 History of Present illness Narrative TRANSITION CARE MANAGEMENT (TCM) INITIAL CONTACT Tile Setter Supervisor Outreach Provider Action/FYI: 7 Day TCM Pt was admitted to [facility] on 02/21/22 and discharged home 02/24/22 Spoke with daughter Roselyn today 02/25/22. Hospital F/U appt made for 03/03/22. No new medications. [facility] discontinued Sinemet as it might be [...] might be hidden SUMMARY: -Pt discharged from [facility] on 02/24/22 -Admitted for: lightheadedness, dehydration, [...] who presented to the emergency department at [facility] on 02/21/2022 for dizziness and vomiting. She [...] head was performed and shows interval right DATA PROCESSING SYSTEMS CONSULTANT shunt placement with no other interval change or acute findings. This was compared from a CT on 10/12/2019. A shuntogram was performed that showed ventriculoperitoneal shunt placement with apparent continuity of the shunt tube and no abnormalities. Her EKG ws unremarkable. Dr. Pete in the emergency department discussed the case with neurosurgery at [facility] (Dr. Simpson) who accepted the patient [...] medications discontinued? Told to wean off her Sinemet-[facility] doctor did not understand why she [...] provider to review documented in this encounter [facility] 02-25-2022 Miscellaneous Notes Opened in error. documented in this encounter [facility] 02-24-2022 Miscellaneous Notes Detailed message left for Charo. Jeyson Torres Ma I will follow for OT, PT, and HH Harsh Mcnair MD Nurse Mancilla from [facility] states pt is being observed for orthostatic hypotension, dehydration & dizziness. Will possibly discharge today & will be seen by HH 02/26/22. Will pcp follow? PT, OT & HH. Kaelyn Ochoa LPN documented in this encounter [facility] 02-21-2022 Miscellaneous Notes Daughter (Roselyn) calls [...] Christina Garcia RN documented in this encounter [facility] 02-20-2022 Miscellaneous Notes This has been completed and faxed. Afsaneh Cruz Ma Office received fax from [employer] for Certificate of Medical Necessity for pt DME Pap supplies. Please review form and complete. Once completed fax back to [phone]. Afsaneh Cruz Ma documented in this encounter [facility] 01-22-2022 History of Present illness Narrative [...] sugar free foods, but does go to [employer] on occasion. Depression - Stable with use [...] - Has Adv Dir/Living Will scanned into [employer]. Past medical history, appointments, medications, allergies reviewed. [...] by mouth with dinner. blood sugar diagnostic (PharmlyTOUCH ULTRA TEST) test strip Test blood sugar [...] Past Histories independently gathered by the clinical product support technician and the remaining scribed note accurately describes [...] Afsaneh Cruz Ma documented in this encounter [facility] 01-06-2022 Miscellaneous Notes The following approved [...] patient. Priscilla Wells documented in this encounter [facility] 10-09-2021 History of Present illness Narrative [...] 2021 12:06 PM documented in this encounter [facility] 09-03-2021 History of Present illness Narrative [...] 2021 3:16 PM documented in this encounter [facility] 04-13-2020 History of Past i llness Narrative Problem Noted Date Resolved Date Postoperative pain 04/13/2020 04/19/2020 Normal pressure hydrocephalus 10/13/2019 Symptomatic menopausal or female climacteric [facility] [place] 08/21/2008 07/23/2010 documented as of this encounter (statuses as of 01/06/2022) [facility]07[facility]2020 History of Past illness Narrative* Problem Noted Date Resolved Date Postoperative pain 04/13/2020 04/19/2020 Normal pressure hydrocephalus 10/13/2019 Symptomatic menopausal or female climacteric [place] 08/21/2008 07/23/2010 documented as of this encounter (statuses as of 01/22/2022) [facility]2020 History of Past illness Narrative* Problem Noted Date Resolved Date Postoperative pain 04/13/2020 04/19/2020 Normal pressure hydrocephalus 10/13/2019 Symptomatic menopausal or female climacteric [place] 08/21/2008 07/23/2010 documented as of this encounter (statuses as of 02/20/2022) [facility]2020 History of Past illness Narrative* Problem Noted Date Resolved Date Postoperative pain 04/13/2020 04/19/2020 Normal pressure hydrocephalus 10/13/2019 Symptomatic menopausal or female climacteric [place] 08/21/2008 07/23/2010 documented as of this encounter (statuses as of 02/21/2022) [address]07-2020 History of Past illness Narrative* Problem Noted Date Resolved Date Postoperative pain 04/13/2020 04/19/2020 Normal pressure hydrocephalus 10/13/2019 Symptomatic menopausal or female climacteric [place] 08/21/2008 07/23/2010 documented as of this encounter (statuses as of 02/24/2022) [facility]2020 History of Past illness Narrative* Problem Noted Date Resolved Date Postoperative pain 04/13/2020 04/19/2020 Normal pressure hydrocephalus 10/13/2019 Symptomatic menopausal or female climacteric [place] 08/21/2008 07/23/2010 documented as of this encounter (statuses as of 02/25/2022) [facility]2020 History of Past illness Narrative* Problem Noted Date Resolved Date Postoperative pain 04/13/2020 04/19/2020 Normal pressure hydrocephalus 10/13/2019 Symptomatic menopausal or female climacteric [place] 08/21/2008 07/23/2010 documented as of this encounter (statuses as of 02/26/2022) [facility]2020 History of Past illness Narrative* Problem Noted Date Resolved Date Postoperative pain 04/13/2020 04/19/2020 Normal pressure hydrocephalus 10/13/2019 Symptomatic menopausal or female climacteric [place] 08/21/2008 07/23/2010 documented as of this encounter (statuses as of 02/26/2022) [address]07-2020 History of Past illness Narrative* Problem Noted Date Resolved Date Postoperative pain 04/13/2020 04/19/2020 Normal pressure hydrocephalus 10/13/2019 Symptomatic menopausal or female climacteric [place] 08/21/2008 07/23/2010 documented as of this encounter (statuses as of 02/28/2022) [facility]2020 History of Past illness Narrative* Problem Noted Date Resolved Date Postoperative pain 04/13/2020 04/19/2020 Normal pressure hydrocephalus 10/13/2019 Symptomatic menopausal or female climacteric [place] 08/21/2008 07/23/2010 documented as of this encounter (statuses as of 03/03/2022) [facility]2020 History of Past illness Narrative* Problem Noted Date Resolved Date Postoperative pain 04/13/2020 04/19/2020 Normal pressure hydrocephalus 10/13/2019 Symptomatic menopausal or female climacteric [place] 08/21/2008 07/23/2010 documented as of this encounter (statuses as of 03/03/2022) [facility]2020 History of Past illness Narrative* Problem Noted Date Resolved Date Postoperative pain 04/13/2020 04/19/2020 Normal pressure hydrocephalus 10/13/2019 Symptomatic menopausal or female climacteric [place] 08/21/2008 07/23/2010 documented as of this encounter (statuses as of 03/06/2022) [address]07-2020 History of Past illness Narrative* Problem Noted Date Resolved Date Postoperative pain 04/13/2020 04/19/2020 Normal pressure hydrocephalus 10/13/2019 Symptomatic menopausal or female climacteric [place] 08/21/2008 07/23/2010 documented as of this encounter (statuses as of 03/06/2022) [address]07-2020 History of Past illness Narrative* Problem Noted Date Resolved Date Postoperative pain 04/13/2020 04/19/2020 Normal pressure hydrocephalus 10/13/2019 Symptomatic menopausal or female climacteric [place] 08/21/2008 07/23/2010 documented as of this encounter (statuses as of 03/06/2022) [facility]2020 History of Past illness Narrative* Problem Noted Date Resolved Date Postoperative pain 04/13/2020 04/19/2020 Normal pressure hydrocephalus 10/13/2019 Symptomatic menopausal or female climacteric [place] 08/21/2008 07/23/2010 documented as of this encounter (statuses as of 05/26/2022) [facility]2020 History of Past illness Narrative* Problem Noted Date Resolved Date Postoperative pain 04/13/2020 04/19/2020 Normal pressure hydrocephalus 10/13/2019 Symptomatic menopausal or female climacteric [place] 08/21/2008 07/23/2010 documented as of this encounter (statuses as of 06/07/2022) [facility]2020 History of Past illness Narrative* Problem Noted Date Resolved Date Postoperative pain 04/13/2020 04/19/2020 Normal pressure hydrocephalus 10/13/2019 Symptomatic menopausal or female climacteric [place] 08/21/2008 07/23/2010 documented as of this encounter (statuses as of 07/16/2022) [facility]2020 History of Past illness Narrative* Problem Noted Date Resolved Date Postoperative pain 04/13/2020 04/19/2020 Normal pressure hydrocephalus 10/13/2019 Symptomatic menopausal or female climacteric [place] 08/21/2008 07/23/2010 documented as of this encounter (statuses as of 07/22/2022) [facility]2020 History of Past illness Narrative* Problem Noted Date Resolved Date Postoperative pain 04/13/2020 04/19/2020 Normal pressure hydrocephalus 10/13/2019 Symptomatic menopausal or female climacteric [place] 08/21/2008 07/23/2010 documented as of this encounter (statuses as of 07/22/2022) [address]07-2020 History of Past illness Narrative* Problem Noted Date Resolved Date Postoperative pain 04/13/2020 04/19/2020 Normal pressure hydrocephalus 10/13/2019 Symptomatic menopausal or female climacteric sta [place] 08/21/2008 07/23/2010 documented as of this encounter (statuses as of 07/30/2022) [address]07-2020 History of Past illness Narrative* Problem Noted Date Resolved Date Postoperative pain 04/13/2020 04/19/2020 Normal pressure hydrocephalus 10/13/2019 Symptomatic menopausal or female climacteric [place] 08/21/2008 07/23/2010 documented as of this encounter (statuses as of 07/30/2022) [facility]2020 History of Past illness Narrative* Problem Noted Date Resolved Date Postoperative pain 04/13/2020 04/19/2020 Normal pressure hydrocephalus 10/13/2019 Symptomatic menopausal or female climacteric [place] 08/21/2008 07/23/2010 documented as of this encounter (statuses as of 08/06/2022) [facility]2020 History of Past illness Narrative* Problem Noted Date Resolved Date Postoperative pain 04/13/2020 04/19/2020 Normal pressure hydrocephalus 10/13/2019 Symptomatic menopausal or female climacteric [place] 08/21/2008 07/23/2010 documented as of this encounter (statuses as of 09/18/2022) [facility]2020 History of Past illness Narrative* Problem Noted Date Resolved Date Postoperative pain 04/13/2020 04/19/2020 Normal pressure hydrocephalus 10/13/2019 Symptomatic menopausal or female climacteric [place] 08/21/2008 07/23/2010 documented as of this encounter (statuses as of 10/01/2022) [facility]2020 History of Past illness Narrative* Problem Noted Date Resolved Date Postoperative pain 04/13/2020 04/19/2020 Normal pressure hydrocephalus 10/13/2019 Symptomatic menopausal or female climacteric [place] 08/21/2008 07/23/2010 documented as of this encounter (statuses as of 10/03/2022) [facility]2020 History of Past illness Narrative* Problem Noted Date Resolved Date Postoperative pain 04/13/2020 04/19/2020 Normal pressure hydrocephalus 10/13/2019 Symptomatic menopausal or female climacteric [place] 08/21/2008 07/23/2010 documented as of this encounter (statuses as of 10/15/2022) [address]07-2020 History of Past illness Narrative* Problem Noted Date Resolved Date Postoperative pain 04/13/2020 04/19/2020 Normal pressure hydrocephalus 10/13/2019 Symptomatic menopausal or female climacteric [place] 08/21/2008 07/23/2010 documented as of this encounter (statuses as of 10/22/2022) [facility] History of Past illness Narrative* Problem Noted Date Resolved Date Postoperative pain 04/13/2020 04/19/2020 Normal pressure hydrocephalus 10/13/2019 Symptomatic menopausal or female climacteric [place] 08/21/2008 07/23/2010 documented as of this encounter (statuses as of 10/27/2022) [facility]2020 History of Past illness Narrative* Problem Noted Date Resolved Date Postoperative pain 04/13/2020 04/19/2020 Normal pressure hydrocephalus 10/13/2019 Symptomatic menopausal or female climacteric [place] 08/21/2008 07/23/2010 documented as of this encounter (statuses as of 12/26/2022) [address]07-2020 History of Past illness Narrative* Problem Noted Date Resolved Date Postoperative pain 04/13/2020 04/19/2020 Normal pressure hydrocephalus 10/13/2019 Symptomatic menopausal or female climacteric [place] 08/21/2008 07/23/2010 documented as of this encounter (statuses as of 01/07/2023) [address]07-2020 History of Past illness Narrative* Problem Noted Date Resolved Date Postoperative pain 04/13/2020 04/19/2020 Normal pressure hydrocephalus 10/13/2019 Symptomatic menopausal or female climacteric [place] 08/21/2008 07/23/2010 documented as of this encounter (statuses as of 01/14/2023) [address]07-2020 History of Past illness Narrative* Problem Noted Date Resolved Date Postoperative pain 04/13/2020 04/19/2020 Normal pressure hydrocephalus 10/13/2019 Symptomatic menopausal or female climacteric [place] 08/21/2008 07/23/2010 documented as of this encounter (statuses as of 01/14/2023) [address]07-2020 History of Past illness Narrative* Problem Noted Date Resolved Date Postoperative pain 04/13/2020 04/19/2020 Normal pressure hydrocephalus 10/13/2019 Symptomatic menopausal or female climacteric [place] 08/21/2008 07/23/2010 documented as of this encounter (statuses as of 01/15/2023) [address]07-2020 History of Past illness Narrative* Problem Noted Date Resolved Date Postoperative pain 04/13/2020 04/19/2020 Normal pressure hydrocephalus 10/13/2019 Symptomatic menopausal or female climacteric [place] 08/21/2008 07/23/2010 documented as of this encounter (statuses as of 01/16/2023) [facility]2020 History of Past illness Narrative* Problem Noted Date Resolved Date Postoperative pain 04/13/2020 04/19/2020 Normal pressure hydrocephalus 10/13/2019 Symptomatic menopausal or female climacteric [place] 08/21/2008 07/23/2010 documented as of this encounter (statuses as of 02/03/2023) [facility]2020 History of Past illness Narrative* Problem Noted Date Resolved Date Postoperative pain 04/13/2020 04/19/2020 Normal pressure hydrocephalus 10/13/2019 Symptomatic menopausal or female climacteric [place] 08/21/2008 07/23/2010 documented as of this encounter (statuses as of 02/06/2023) [facility]2020 History of Past illness Narrative* Problem Noted Date Resolved Date Postoperative pain 04/13/2020 04/19/2020 Normal pressure hydrocephalus 10/13/2019 Symptomatic menopausal or female climacteric [place] 08/21/2008 07/23/2010 documented as of this encounter (statuses as of 02/06/2023) [address]07-2020 History of Past illness Narrative* Problem Noted Date Resolved Date Postoperative pain 04/13/2020 04/19/2020 Normal pressure hydrocephalus 10/13/2019 Symptomatic menopausal or female climacteric sta [place] 08/21/2008 07/23/2010 documented as of this encounter (statuses as of 02/06/2023) [address]07-2020 History of Past illness Narrative* Problem Noted Date Resolved Date Postoperative pain 04/13/2020 04/19/2020 Normal pressure hydrocephalus 10/13/2019 Symptomatic menopausal or female climacteric sta [place] 08/21/2008 07/23/2010 documented as of this encounter (statuses as of 02/07/2023) [address]07-2020 History of Past illness Narrative* Problem Noted Date Diagnosed Date Resolved Date Postoperative pain 04/13/2020 0 Normal pressure hydrocephalus 10/13/2019 04/19/2020 Symptomatic menopausal or fe male climacteric states 08/21/2008 07/23/2010 documented as of this encounter (statuses as of 04/03/2023) [address]07-2020 History of Past illness Narrative* Problem Noted Date Diagnosed Date Resolved Date Postoperative pain 04/13/2020 0 Normal pressure hydrocephalus 10/13/2019 04/19/2020 Symptomatic menopausal or fe male climacteric states 08/21/2008 07/23/2010 documented as of this encounter (statuses as of 04/18/2023) [address]07-2020 History of Past illness Narrative* Problem Noted Date Diagnosed Date Resolved Date Postoperative pain 04/13/2020 0 Normal pressure hydrocephalus 10/13/2019 04/19/2020 Symptomatic menopausal or fe male climacteric states 08/21/2008 07/23/2010 documented as of this encounter (statuses as of 04/22/2023) [address]07-2020 History of Past illness Narrative* Problem Noted Date Diagnosed Date Resolved Date Postoperative pain 04/13/2020 0 Normal pressure hydrocephalus 10/13/2019 04/19/2020 Symptomatic menopausal or fe male climacteric states 08/21/2008 07/23/2010 documented as of this encounter (statuses as of 05/07/2023) [facility] noteNo assessment information availableWSalem [facility] Work Phone: Evaluation note* Diagnosis Depressive disorder Depressive disorder, not elsewhere classified Vascular parkinsonism (HCC) Paralysis agitans [facility] Diagnosis Controlled type 2 diabetes mellitus without complication, without long-term current use of insulin ([facility])- Primary Hyperlipidemia, unspecified hyperlipidemia type Depressive disorder Depressive disorder, not elsewhere classified Essential hypertension, benign Memory difficulties Memory loss Female stress incontinence [facility]* Diagnosis Onset Date Resolution Status Dizziness acute History of diabetes mellitus acute History of hydrocephalus acu te Orthostatic hypotension acut e Unable to ambulate [facility] Work Phone: Evaluation note* Diagnosis Onset Date Resolution Status Dehydration acute Dizziness acute Orthostatic hypotension acut e Unable to ambulate [facility] Work Phone: Evaluation note* Diagnosis S/P DATA PROCESSING SYSTEMS CONSULTANT shunt- Primary Presence of cerebrospinal fluid drainage device Other hydrocephalus (HCC) [facility]* Diagnosis Hospital discharge follow-up- Primary Other follow-up examination Orthostatic hypertension Nausea and vomiting, unspecified vomiting type Cervical spondylosis Cervical spondylosis without myelopathy Neural foraminal stenosis of cervical spine Spinal stenosis in cervical region Bilateral hand numbness Disturbance of skin sensation Vascular parkinsonism (HCC) Paralysis agitans [facility] Diagnosis NPH (normal pressure hydrocephalus) (HCC)- Primary Idiopathic normal pressure hydrocephalus (INPH) Dehydration Adverse effects of medication, initial encounter [facility] Diagnosis Other hydrocephalus (HCC) [facility]* Diagnosis Major neurocognitive disorder (HCC)- Primary Unspecified persistent mental disorders due to conditions classified elsewhere NPH (normal pressure hydrocephalus) (HCC) Idiopathic normal pressure hydrocephalus (INPH) Controlled type 2 diabetes mellitus without complication, without long-term current use of insulin (HCC) Depression, unspecified depression type documented in this encounter [facility] note* Diagnosis Hyperlipidemia, unspecified hyperlipidemia type- Primary Essential hypertension, benign Female stress incontinence Controlled type 2 diabetes mellitus without complication, without long-term current use of insulin ([facility]) Depressive disorder Depressive disorder, not elsewhere classified NPH (normal pressure hydrocephalus) (HCC) Idiopathic normal pressure hydrocephalus (INPH) Dementia without behavioral disturbance, psychotic disturbance, mood disturbance, or anxiety, unspecified dementia severity, unspecified dementia type ([facility]) [facility]* Diagnosis Encounter for gynecological examination (general) (routine) without abnormal findings- Primary Encounter for screening for osteoporosis Special screening for osteoporosis Unspecified menopausal and perimenopausal disorder [facility] Diagnosis Female stress incontinence- Primary [facility] Diagnosis Female stress incontinence documented in this encounter [facility] note* Diagnosis Controlled type 2 diabetes mellitus without complication, without long-term current use of insulin ([facility]) [facility] Diagnosis 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* Diagnosis Female stress incontinence- Primary [facility]* Diagnosis Urine retention- Primary Retention of urine, unspecified Mixed stress and urge urinary incontinence Mixed incontinence urge and stress (male)(female) Vascular parkinsonism (HCC) Paralysis agitans [facility]* Diagnosis Female stress incontinence [facility] this [facility]* Diagnosis Depressive disorder Depressive disorder, not elsewhere classified [facility] this [facility]* Diagnosis Controlled type 2 diabetes mellitus without complication, without long-term current use of insulin (HCC) [facility] this [facility]* Diagnosis Other hydrocephalus (HCC)- Primary 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* Diagnosis Other hydrocephalus (HCC) [facility] this [facility]* Diagnosis Controlled type 2 diabetes mellitus without complication, without long-term current use of insulin (HCC) [facility] this [facility]* Diagnosis Cervical spondylosis Cervical spondylosis without myelopathy Neural foraminal stenosis of cervical spine Spinal stenosis in cervical region Bilateral hand numbness Disturbance of skin sensation [facility]* Diagnosis Dementia due to [...] not elsewhere classified [facility] this [facility]* Diagnosis Diabetes mellitus type 2, controlled, [...] of pneumonia (recurrent) [facility]* Diagnosis Diabetes mellitus type 2, controlled, [...] Obesity, unspecified Cough documented in this encounter [facility] Discharge instructionsWSalem [facility] Hospital Work Phone: Reason for referral (narrative)* Diagnostic Procedure Only (Routine) - Authorized Specialty Diagnoses / Procedures Referred By Contac t Referred To Contact US IMAGING Diagnoses Mixed stress and urge urinary incontinence Urine retention Procedures US KIDNEY/BLADDER US RETROPERITONEAL REAL TIME W/IMAGE COMPLETE Cristine Puri, EDUCATIONAL INTERPRETER.MUSIC EXECUTIVE [address] [place] [address] Us Imaging Referral ID Status Reason Start Date Expiration Date Visits Requested Visits Authorized [id number] Authorized Auto-Generat ed Referral 01/07/2023 02/06/2024 1 1 [place] for referral (narrative)No reason for referral information availablePremier Health [facility] Work Phone: Chief Complaint and Reason for Visit Chief Complaint SCREENING GENERAL ILLNESS COVID POS Chief Complaint LIGHTHEADNESS Reason for Visit Dizziness History of diabetes mellitus History of hydrocephalus Orthostatic hypotension Unable to ambulate Chief Complaint LIGHTHEADNESS LIGHTHEADNESS LIGHTHEADNESS LIGHTHEADNESS Reason for Visit Dehydration Dizziness Orthostatic hypotension Unable to ambulate Chief Complaint SKILLED NURSING LAB WOR K LABWORK Chief Complaint SKILLED NURSING LAB WOR K NEW CONCERN LABWORK SKILLED NURSING LABWORK Chief Complaint NEW CONCERN LABWORK SKILLED NURSING LABWORK SKILLED NURSING LAB WORK Chief Complaint SKILLED NURSING LABWORK NEW CONCERN SKILLED NURSING LAB WORK LABWORK Chief Complaint Admit Date SKILLED NURSING LAB WORK November 02 5:00am Chief Complaint Admit Date SKILLED NURSING LAB WORK November 02 5:00am SKILLED NURSING LAB WORK January 31, 2025 5:0 0am NEW CONCERN February 01, 2025 11:53 am Chief Complaint Admit Date SKILLED NURSING LAB WORK January 31, 2025 5:0 0am NEW CONCERN February 01, 2025 11:53 am New Concern February 16, 2025 4:05 pm Chief Complaint Admit Date SKILLED NURSING LAB WORK January 31, 2025 5:0 0am NEW CONCERN February 01, 2025 11:53 am New Concern February 16, 2025 4:05 pm NEW CONCERN April 10, 2025 3:4 9pm Chief Complaint Admit Date SKILLED NURSING LAB WORK January 31, 2025 5:0 0am NEW CONCERN February 01, 2025 11:53 am New Concern February 16, 2025 4:05 pm NEW CONCERN April 10, 2025 3:4 9pm Annual exam April 25, 2025 1: 14pm SKILLED NURSING LAB WORK 2025 4:00am Chief Complaint Admit Date SKILLED NURSING LAB WORK January 31, 2025 5:0 0am NEW CONCERN February 01, 2025 11:53 am New Concern February 16, 2025 4:05 pm NEW CONCERN April 10, 2025 3:4 9pm Annual exam April 25, 2025 1: 14pm Hx of abnormal mammogram April 26 6:03pm SKILLED NURSING LAB WORK 2025 4:00am Advance Directives No Advanced Directives Records Found Advance Directive Response Recorded Date/ Time Living Will Yes September 04 1:55pm Power of Status Controller Yes September 04, 2021 1:55pm Documents on File Type Date Recorded Patient Lining Printer Expl anation Advance Directive(s) 03/20/2020 4:10 PM Advance Directive(s) 03/20/2020 4:11 PM Advance Directive(s) 03/02/2020 3:38 PM Advance Directive(s) 02/15/2020 3:49 PM Advance Directive(s) 01/27/2020 10:30 AM Advance Directive(s) 11/25/2019 1:12 PM Advance Directive Response Recorded Date/ Time Living Will Yes February 21, 2022 6:00pm Power of Status Controller Yes February 21 6:00pm Name of Medical Power of Status Controller roselyn reyes off-daughter February 21, 2022 6:00pm Advance Directive Response Recorded Date/ Time Name of Medical Power of Status Controller Roselyn Reyes off February 21, 2022 11:13pm Living Will Yes February 21, 2022 11:13pm Power of Status Controller Yes February 21 11:13pm Documents on File Type Date Recorded Patient Lining Printer Expl anation Advance Directive(s) 03/20/2020 4:10 PM Advance Directive(s) 03/20/2020 4:11 PM Advance Directive(s) 03/02/2020 3:38 PM Advance Directive(s) 02/15/2020 3:49 PM Advance Directive(s) 01/27/2020 10:30 AM Advance Directive(s) 11/25/2019 1:12 PM Documents on File Type Date Recorded Patient Lining Printer Expl anation Advance Directive(s) 03/20/2020 4:11 PM Documents on File Type Date Recorded Patient Lining Printer Expl anation Advance Directive(s) 03/20/2020 4:11 PM Advance Directive Response Recorded Date/ Time Living Will No July 22, 2 022 11:42pm Power of Status Controller No July 22, 2022 11:42pm Advance Directive Response Recorded Date/ Time Living Will No July 22, 2 022 10:42pm Power of Status Controller No July 22, 2022 10:42pm Reason for Referral Specialty Diagnoses / Procedures Referred By Keysha mascorro Referred To Contact CT IMAGING Diagnoses Other hydrocephalus (HCC) S/P DATA PROCESSING SYSTEMS CONSULTANT shunt Procedures CT BRAIN WO IVCON CT HEAD/BRAIN W/O CONTRAST MATERIAL Orestes Hernandez PA-C [address] [place], [place] [id number] Ct Imaging Referral ID Status Reason Start Date Expiration Date Visits Requested Visits Authorized [id number] Pending Review Auto-Generat ed Referral 02/26/2022 03/28/2023 1 1 Specialty Diagnoses / Procedures Referred By Keysha mascorro Referred To Contact CT IMAGING Diagnoses Other hydrocephalus (HCC) Procedures CT BRAIN WO IVCON CT HEAD/BRAIN W/O CONTRAST MATERIAL Ramírez Leavitt PA-C [id number] [place] [address] Ct Imaging Referral ID Status Reason Start Date Expiration Date Visits Requested Visits Authorized [id number] Pending Review Auto-Generat ed Referral 03/06/2022 04/05/2023 1 1 Specialty Diagnoses / Procedures Referred By Keysha mascorro Referred To Contact Urology Diagnoses Female stress incontinence Procedures CONSULT TO UROLOGY OFFICE/OUTPATIENT [facility] 60-74 MINUTES Harsh Mcnair MD [address] [place] [address] Referral ID Status Reason Start Date Expiration Date Visits Requested Visits Authorized [id number] Authorized PCP Requested Referral 12/25/2022 12/25/2023 1 1 Referral ID Status Reason Start Date Expiration Date Visits Requested Visits Authorized [id number] Pending Review Auto-Generat ed Referral 02/05/2023 03/06/2024 1 1 Referral ID Status Reason Start Date Expiration Date V isits Requested Visits Authorized [id number] Closed Auto-Generate d Referral 03/06/2022 04/05/2023 1 [...] or prosecute any alcohol or drug abuse patient.[facility] the event this information is protected by the Federal Confidentiality of Alcohol and Drug Abuse Patient Records regulations: The Federal rules restrict any use of the information to criminally investigate or prosecute any alcohol or drug abuse patient.[facility] HospitalIn the event this information is protected by the Federal Confidentiality of Alcohol and Drug Abuse Patient Records regulations: The Federal rules restrict any use of the information to criminally investigate or prosecute any alcohol or drug abuse patient.[facility] HospitalIn the event this information is protected by the Federal Confidentiality of Alcohol and Drug Abuse Patient Records regulations: The Federal rules restrict any use of the information to criminally investigate or prosecute any alcohol or drug abuse patient.[facility] HospitalIn the event this information is protected by the Federal Confidentiality of Alcohol and Drug Abuse Patient Records regulations: The Federal rules restrict any use of the information to criminally investigate or prosecute any alcohol or drug abuse patient.[facility] HospitalIn the event this information is protected by the Federal Confidentiality of Alcohol and Drug Abuse Patient Records regulations: The Federal rules restrict any use of the information to criminally investigate or prosecute any alcohol or drug abuse patient.[facility] HospitalIn the event this information is protected by the Federal Confidentiality of Alcohol and Drug Abuse Patient Records regulations: The Federal rules restrict any use of the information to criminally investigate or prosecute any alcohol or drug abuse patient.[facility] HospitalIn the event this information is protected by the Federal Confidentiality of Alcohol and Drug Abuse Patient Records regulations: The Federal rules restrict any use of the information to criminally investigate or prosecute any alcohol or drug abuse patient.[facility] HospitalIn the event this information is protected by the Federal Confidentiality of Alcohol and Drug Abuse Patient Records regulations: The Federal rules restrict any use of the information to criminally investigate or prosecute any alcohol or drug abuse patient.[facility] HospitalIn the event this information is protected by the Federal Confidentiality of Alcohol and Drug Abuse Patient Records regulations: The Federal rules restrict any use of the information to criminally investigate or prosecute any alcohol or drug abuse patient.[facility] HospitalIn the event this information is protected by the Federal Confidentiality of Alcohol and Drug Abuse Patient Records regulations: The Federal rules restrict any use of the information to criminally investigate or prosecute any alcohol or drug abuse patient.[facility] HospitalIn the event this information is protected by the Federal Confidentiality of Alcohol and Drug Abuse Patient Records regulations: The Federal rules restrict any use of the information to criminally investigate or prosecute any alcohol or drug abuse patient.[facility] HospitalIn the event this information is protected by the Federal Confidentiality of Alcohol and Drug Abuse Patient Records regulations: The Federal rules restrict any use of the information to criminally investigate or prosecute any alcohol or drug abuse patient.[facility] HospitalIn the event this information is protected by the Federal Confidentiality of Alcohol and Drug Abuse Patient Records regulations: The Federal rules restrict any use of the information to criminally investigate or prosecute any alcohol or drug abuse patient.[facility] HospitalIn the event this information is protected by the Federal Confidentiality of Alcohol and Drug Abuse Patient Records regulations: The Federal rules restrict any use of the information to criminally investigate or prosecute any alcohol or drug abuse patient.[facility] HospitalIn the event this information is protected by the Federal Confidentiality of Alcohol and Drug Abuse Patient Records regulations: The Federal rules restrict any use of the information to criminally investigate or prosecute any alcohol or drug abuse patient.[facility] HospitalIn the event this information is protected by the Federal Confidentiality of Alcohol and Drug Abuse Patient Records regulations: The Federal rules restrict any use of the information to criminally investigate or prosecute any alcohol or drug abuse patient.[facility] HospitalIn the event this information is protected by the Federal Confidentiality of Alcohol and Drug Abuse Patient Records regulations: The Federal rules restrict any use of the information to criminally investigate or prosecute any alcohol or drug abuse patient.[facility] HospitalIn the event this information is protected by the Federal Confidentiality of Alcohol and Drug Abuse Patient Records regulations: The Federal rules restrict any use of the information to criminally investigate or prosecute any alcohol or drug abuse patient.[facility] HospitalIn the event this information is protected by the Federal Confidentiality of Alcohol and Drug Abuse Patient Records regulations: The Federal rules restrict any use of the information to criminally investigate or prosecute any alcohol or drug abuse patient.[facility] HospitalIn the event this information is protected by the Federal Confidentiality of Alcohol and Drug Abuse Patient Records regulations: The Federal rules restrict any use of the information to criminally investigate or prosecute any alcohol or drug abuse patient.[facility] HospitalIn the event this information is protected by the Federal Confidentiality of Alcohol and Drug Abuse Patient Records regulations: The Federal rules restrict any use of the information to criminally investigate or prosecute any alcohol or drug abuse patient.[facility] HospitalIn the event this information is protected by the Federal Confidentiality of Alcohol and Drug Abuse Patient Records regulations: The Federal rules restrict any use of the information to criminally investigate or prosecute any alcohol or drug abuse patient.[facility] HospitalIn the event this information is protected by the Federal Confidentiality of Alcohol and Drug Abuse Patient Records regulations: The Federal rules restrict any use of the information to criminally investigate or prosecute any alcohol or drug abuse patient.[facility] HospitalIn the event this information is protected by the Federal Confidentiality of Alcohol and Drug Abuse Patient Records regulations: The Federal rules restrict any use of the information to criminally investigate or prosecute any alcohol or drug abuse patient.[facility] HospitalIn the event this information is protected by the Federal Confidentiality of Alcohol and Drug Abuse Patient Records regulations: The Federal rules restrict any use of the information to criminally investigate or prosecute any alcohol or drug abuse patient.[facility] HospitalIn the event this information is protected by the Federal Confidentiality of Alcohol and Drug Abuse Patient Records regulations: The Federal rules restrict any use of the information to criminally investigate or prosecute any alcohol or drug abuse patient.[facility] HospitalIn the event this information is protected by the Federal Confidentiality of Alcohol and Drug Abuse Patient Records regulations: The Federal rules restrict any use of the information to criminally investigate or prosecute any alcohol or drug abuse patient.[facility] HospitalIn the event this information is protected by the Federal Confidentiality of Alcohol and Drug Abuse Patient Records regulations: The Federal rules restrict any use of the information to criminally investigate or prosecute any alcohol or drug abuse patient.[facility] HospitalIn the event this information is protected by the Federal Confidentiality of Alcohol and Drug Abuse Patient Records regulations: The Federal rules restrict any use of the information to criminally investigate or prosecute any alcohol or drug abuse patient.[facility] HospitalIn the event this information is protected by the Federal Confidentiality of Alcohol and Drug Abuse Patient Records regulations: The Federal rules restrict any use of the information to criminally investigate or prosecute any alcohol or drug abuse patient.[facility] HospitalIn the event this information is protected by the Federal Confidentiality of Alcohol and Drug Abuse Patient Records regulations: The Federal rules restrict any use of the information to criminally investigate or prosecute any alcohol or drug abuse patient.[facility] HospitalIn the event this information is protected by the Federal Confidentiality of Alcohol and Drug Abuse Patient Records regulations: The Federal rules restrict any use of the information to criminally investigate or prosecute any alcohol or drug abuse patient.[facility] HospitalIn the event this information is protected by the Federal Confidentiality of Alcohol and Drug Abuse Patient Records regulations: The Federal rules restrict any use of the information to criminally investigate or prosecute any alcohol or drug abuse patient.[facility] HospitalIn the event this information is protected by the Federal Confidentiality of Alcohol and Drug Abuse Patient Records regulations: The Federal rules restrict any use of the information to criminally investigate or prosecute any alcohol or drug abuse patient.[facility] HospitalIn the event this information is protected by the Federal Confidentiality of Alcohol and Drug Abuse Patient Records regulations: The Federal rules restrict any use of the information to criminally investigate or prosecute any alcohol or drug abuse patient.[facility] HospitalIn the event this information is protected by the Federal Confidentiality of Alcohol and Drug Abuse Patient Records regulations: The Federal rules restrict any use of the information to criminally investigate or prosecute any alcohol or drug abuse patient.[facility] HospitalIn the event this information is protected by the Federal Confidentiality of Alcohol and Drug Abuse Patient Records regulations: The Federal rules restrict any use of the information to criminally investigate or prosecute any alcohol or drug abuse patient.[facility] HospitalIn the event this information is protected by the Federal Confidentiality of Alcohol and Drug Abuse Patient Records regulations: The Federal rules restrict any use of the information to criminally investigate or prosecute any alcohol or drug abuse patient.[facility] HospitalIn the event this information is protected by the Federal Confidentiality of Alcohol and Drug Abuse Patient Records regulations: The Federal rules restrict any use of the information to criminally investigate or prosecute any alcohol or drug abuse patient.[facility] HospitalIn the event this information is protected by the Federal Confidentiality of Alcohol and Drug Abuse Patient Records regulations: The Federal rules restrict any use of the information to criminally investigate or prosecute any alcohol or drug abuse patient.[facility] HospitalIn the event this information is protected by the Federal Confidentiality of Alcohol and Drug Abuse Patient Records regulations: The Federal rules restrict any use of the information to criminally investigate or prosecute any alcohol or drug abuse patient.[facility] HospitalIn the event this information is protected by the Federal Confidentiality of Alcohol and Drug Abuse Patient Records regulations: The Federal rules restrict any use of the information to criminally investigate or prosecute any alcohol or drug abuse patient.[facility] HospitalIn the event this information is protected by the Federal Confidentiality of Alcohol and Drug Abuse Patient Records regulations: The Federal rules restrict any use of the information to criminally investigate or prosecute any alcohol or drug abuse patient.[facility] HospitalIn the event this information is protected by the Federal Confidentiality of Alcohol and Drug Abuse Patient Records regulations: The Federal rules restrict any use of the information to criminally investigate or prosecute any alcohol or drug abuse patient.[facility] HospitalIn the event this information is protected by the Federal Confidentiality of Alcohol and Drug Abuse Patient Records regulations: The Federal rules restrict any use of the information to criminally investigate or prosecute any alcohol or drug abuse patient.[facility] HospitalIn the event this information is protected by the Federal Confidentiality of Alcohol and Drug Abuse Patient Records regulations: The Federal rules restrict any use of the information to criminally investigate or prosecute any alcohol or drug abuse patient.[facility] Reason for Visit (unrecogniz ed section [...] stress incontinence Procedures CONSULT TO UROLOGY OFFICE/OUTPATIENT [facility] 60-74 MINUTES Harsh Mcnair MD [address] [place] [address] Referral ID Status Reason Start Date Expiration Date V isits Requested Visits Authorized [id number] Closed PCP Requested Referral 12/25/2022 12/25/2023 1 1 Reason Comments Refill Request Reason Comments Patient Question Reason Onset Date Comments Refill Request 01/15/[address] Specialty Diagnoses / Procedures Referred By Contac t Referred To Contact CT IMAGING Diagnoses Other hydrocephalus (HCC) Procedures CT BRAIN WO IVCON CT HEAD/BRAIN W/O CONTRAST MATERIAL Ramírez Leavitt PA-C [address] [place] [address] Ct Imaging Referral ID Status Reason Start Date Expiration Date V isits Requested Visits Authorized [id number] Closed Auto-Generate d Referral 03/06/2022 04/05/2023 1 1 Reason Comments Medication Problem Reason Onset Date Comments Refill Request 04/02/2023 Reason Comments Follow Up admission to [facility] Reason Comments medication quesitons Reason Comments Forms [employer]-CPAP suppl ies Care Teams (unrecognized sec tion and content) 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 Relationship Specialty Start Date End Date Harsh Mcnair MD [address] [place] [address] PCP - General 07/16/09 Creamery Worker Relationship Specialty Start Date End Date Harsh Mcnair MD [address] [place] [address] PCP - General 07/16/09 Creamery Worker Relationship Specialty Start Date End Date Harsh Mcnair MD [address] [place] [address] PCP - General 07/16/09 Creamery Worker Relationship Specialty Start Date End Date Harsh Mcnair MD [address] [place] [address] PCP - General 07/16/09 Creamery Worker Relationship Specialty Start Date End Date Harsh Mcnair MD [address] [place] [address] PCP - General 07/16/09 Creamery Worker Relationship Specialty Start Date End Date Harsh Mcnair MD [address] [place] [address] PCP - General 07/16/09 Creamery Worker Relationship Specialty Start Date End Date Harsh Mcnair MD [address] [place] [address] PCP - General 07/16/09 Creamery Worker Relationship Specialty Start Date End Date Harsh Mcnair MD [address] [place] [address] PCP - General 07/16/09 Creamery Worker Relationship Specialty Start Date End Date Harsh Mcnair MD [address] [place] [address] PCP - General 07/16/09 Creamery Worker Relationship Specialty Start Date End Date Harsh Mcnair MD [address] [place] [address] PCP - General 07/16/09 Creamery Worker Relationship Specialty Start Date End Date Harsh Mcnair MD [address] [place] [address] PCP - General 07/16/09 Creamery Worker Relationship Specialty Start Date End Date Harsh Mcnair MD [address] [place] [address] PCP - General 07/16/09 Creamery Worker Relationship Specialty Start Date End Date Harsh Mcnair MD [address] [place] [address] PCP - General 07/16/09 Creamery Worker Relationship Specialty Start Date End Date Harsh Mcnair MD [address] [place] [address] PCP - General 07/16/09 Creamery Worker Relationship Specialty Start Date End Date Harsh Mcnair MD [address] [place] [address] PCP - General 07/16/09 Creamery Worker Relationship Specialty Start Date End Date Harsh Mcnair MD [address] [place] [address] PCP - General 07/16/09 Creamery Worker Relationship Specialty Start Date End Date Harsh Mcnair MD [address] [place] [address] PCP - General 07/16/09 Creamery Worker Relationship Specialty Start Date End Date Harsh Mcnair MD [address] [place] [address] PCP - General 07/16/09 Creamery Worker Relationship Specialty Start Date End Date Harsh Mcnair MD [address] [place] [address] PCP - General 07/16/09 Creamery Worker Relationship Specialty Start Date End Date Harsh Mcnair MD [address] [place] [address] PCP - General 07/16/09 Creamery Worker Relationship Specialty Start Date End Date Harsh Mcnair MD [address] [place] [address] PCP - General 07/16/09 Creamery Worker Relationship Specialty Start Date End Date Harsh Mcnair MD [address] [place] [address] PCP - General 07/16/09 Creamery Worker Relationship Specialty Start Date End Date Harsh Mcnair MD [address] [place] [address] PCP - General 07/16/09 Creamery Worker Relationship Specialty Start Date End Date Harsh Mcnair MD [address] [place] [address] PCP - General 07/16/09 Creamery Worker Relationship Specialty Start Date End Date Harsh Mcnair MD [address] [place] [address] PCP - General 07/16/09 Creamery Worker Relationship Specialty Start Date End Date Harsh Mcnair MD [address] [place] [address] PCP - General 07/16/09 Creamery Worker Relationship Specialty Start Date End Date Harsh Mcnair MD [address] [place] [address] PCP - General 07/16/09 Team Status: Active [...] MD Primary Care Provider Active Kathya Underwood [employer]IGH SCHOOL CHEMISTRY TEACHER, HIGH SCHOOL CHEMISTRY TEACHER-C Attending Provider Active Team Status: Inactive Member Role Status Dates Dr. Harsh Mcnair MD Primary Care Provider Active Manpreet DICKINSON MD Attending Provider, Referring Provider Active Creamery Worker Relationship Specialty Start Date End Date Harsh Mcnair MD [address] [place], [place] [address] PCP - General 07/16/09 01/14/24 Manpreet Ivy [address] [place] [address] PCP - General 01/15/24 Creamery Worker Relationship Specialty Start Date End Date Harsh Mcnair MD [address] [place] [address] PCP - General 07/16/09 01/14/24 Creamery Worker Relationship Specialty Start Date End Date Harsh Mcnair MD [address] [place] [address] PCP - General 07/16/09 01/14/24 Team Status: [...] 2025 End: February 01, 2025 Kathya Underwood HIGH SCHOOL CHEMISTRY TEACHER, HIGH SCHOOL CHEMISTRY TEACHER-C Attending Provider Active Start: February 01, 2025 [...] 2025 End: February 01, 2025 Kathya Underwood HIGH SCHOOL CHEMISTRY TEACHER, HIGH SCHOOL CHEMISTRY TEACHER-C Attending Provider Active Start: February 01, 2025 End: February 01, 2025 Team Status: Inactive Member Role/Relationship Status Dates Dr. Harsh Mcnair MD Primary Care Provider Active Start: February 16, 2025 End: February 16, 2025 Kathya Underwood HIGH SCHOOL CHEMISTRY TEACHER, HIGH SCHOOL CHEMISTRY TEACHER-C Attending Provider Active Start: February 16, 2025 End: February 16, 2025 Team Status: Inactive Member Role/Relationship Status Dates Dr. Harsh Mcnair MD Primary Care Provider Active Start: April 10, 2025 End: April 10, 2025 Kathya Underwood HIGH SCHOOL CHEMISTRY TEACHER, HIGH SCHOOL CHEMISTRY TEACHER-C Attending Provider Active Start: April 10, 2025 End: April 10, 2025 Team Status: Inactive Member Role/Relationship Status Dates Dr. Harsh Mcnair MD Primary Care Provider Active Start: April 25, 2025 End: April 25, 2025 Dr. Manpreet Ivy MD Attending Provider Active Start: April 25, 2025 End: April 25, 2025 Team Status: Active Member Role/Relationship Status Dates Dr. Harsh Mcnair MD Primary Care Provider Active Start: April 26, 2025 Manpreet DICKINSON MD Attending Provider Active Start: April 26, 2025 Team Status: Active Member Role/Relationship Status Dates Dr. Harsh Mcnair MD Primary Care Provider Active Start: 2025 Manpreet DICKINSON MD Attending Provider Active Start: 2025 Manpreet DICKINSON MD Referring Provider Active Start: 2025 Team Status: Inactive Member Role/Relationship Status Dates Dr. Harsh Mcnair MD Primary Care Provider Active Start: April 26, 2025 End: April 26, 2025 Kathya Underwood HIGH SCHOOL CHEMISTRY TEACHER, HIGH SCHOOL CHEMISTRY TEACHER-C Attending Provider Active Start: April 26, 2025 End: April 26, 2025 Team Status: Active Member Role/Relationship Status Dates Dr. Harsh Mcnair MD Primary Care Provider Active Start: 2025 Manpreet DICKINSON MD Attending Provider Active Start: 2025 Manpreet DICKINSON MD Referring Provider Active Start: 2025 INFORMATION SOURCE (unrecogn ized section and content) DATE CREATED AUTHOR 01/17/2024 [facility] DATE CREATED AUTHOR 'S ORGANIZ ATION 07/19/2025 [facility] FOR RECORDS PERTAINING TO PATIENTS WHO [...] BE BASED ON THE PRIMARY CLINICAL RECORDS. [employer] provides no warranty or guarantee of the accuracy or completeness of information in this document.
[2025-08-01 07:03] LABS: Hematocrit 36.7 % (37-47); Hemoglobin 11.8 g/dL (12.0-15.0); Immature Granulocytes Count 0.020 X10^3/uL (0.0-0.0); Mean Corp Hgb Conc 32.2 g/dL (32-36); Mean Corpuscular Volume 89.3 fL (81-99); Mean Platelet Vol. 10.7 fl (6.2-12.0); NRBC Flagged by Analyzer 0 % (0-5); Platelet Count 220 K/mm3 (150-450); RBC Distribution Width CV 13.0 % (11.6-14.6); RBC Distribution Width SD 42.6 fl (35.1-43.9); Red Blood Count 4.11 M/mm3 (4.2-5.4); White Blood Count 9.0 K/mm3 (4.4-11.0)
[2025-08-01 08:27] LABS: AST(SGOT) 20 U/L (<=31); Alanine Aminotransfer ALT/SGPT 12 U/L (<=34); Albumin, Serum 4.0 g/dL (3.4-4.8); Alkaline Phosphatase 61 U/L (35-104); Anion Gap 14 (5-15); BUN 20 mg/dL (4-19); BUN/Creat Ratio 17.6 RATIO (10-20); Calcium,Total 9.7 mg/dL (7.6-11.0); Carbon Dioxide 23.7 mmol/L (21.0-32.0); Chloride 102 mmol/L (98-108); Cholesterol 122 mg/dL (<=200); Globulin 2.4 g/dL (2.2-4.2); Glucose 126 mg/dL (70-99); Low Density Lipoprotein Calc. 52 mg/dL; Potassium 4.2 mmol/L (3.3-5.1); Triglycerides 130 mg/dL; Very Low Density Lipoprotein 26 mg/dL (5-40); cholesterol:hdl ratio screen 2.61
== END ==
LOC: OLS.WHLTSB 05:00
PROVIDERS: PCP Family Medicine; Visit Provider Internal Medicine
DX: E11.9 Type 2 diabetes mellitus without complications (principal); F02.80 Dementia in other diseases classified elsewhere, unspecified severity, without behavioral disturbance, psychotic disturbance, mood disturbance, and anxiety; D18.01 Hemangioma of skin and subcutaneous tissue; L57.0 Actinic keratosis
CPT/HCPCS: 36415; 80053; 80061; 83036; 85025